=== PATIENT | female | born 1960 | race Caucasian/White ===

== ENCOUNTER 2017-11-16 15:44 | Inpatient (IN) | payer MEDICAID, SELFPAY ==
[2017-11-16] VITALS (32 sets, daily range): BP systolic 70–171; BP diastolic 56–128; PULSE 68–102; RESP 14–35; TEMP 36.1–37.5; O2SAT 10–100; BMI 18.9; BMI 18.6
--- NOTE | 2017-11-16 15:48 | ED.RN ---
upon arrival to triage pt pulse ox was 58-62% on room air with labored breathing
--- NOTE | 2017-11-16 15:53 | EKG12_ITS ---
Test Reason : SOB Blood Pressure : / mmHG Vent. Rate : 100 BPM Atrial Rate : 100 BPM P-R Int : 142 ms QRS Dur : 082 ms QT Int : 322 ms P-R-T Axes : 083 258 076 degrees QTc Int : 415 ms Normal sinus rhythm Low voltage QRS (LIMB LEADS) Possible Left atrial enlargement Poor R wave progression Septal infarct , age undetermined -cannot be excluded Abnormal ECG Confirmed by JR KHAN, SARBJIT ([id number]), book or script editor KEVIN ESTEVES ([id number]) on 11/18/2017 1:34:00 PM Referred By: Frances Yusuf Confirmed By:SARBJIT NORRIS MD
--- NOTE | 2017-11-16 15:55 | RAD_ITS ---
STUDY: X-RAY CHEST REASON FOR EXAM: Female, 57 years old. Shortness of breath TECHNIQUE: Single view of the chest was obtained COMPARISON: February 09, 2014 chest radiograph FINDINGS: Emphysematous changes are seen bilaterally. Apical lung scarring. Bilateral subsegmental atelectasis. Calcified nodule in the left lower lobe likely present. Degenerative changes in the thoracic spine. IMPRESSION: Interval progression of the apical lung densities possibly scarring however underlying mass is not excluded from this exam. COPD Electronically Signed: Tremaine Davila, at 16:25 EDT Tel , Service support , RAD/Chest 1 View (Portable)
[2017-11-16] MEDS: Albuterol 2.5 MG/3 ML VIAL.NEB. INHALATION ×3 (15:56→16:36)
[2017-11-16] MEDS: Ipratropium/Albuterol Sulfate 3 ML AMPUL.NEB INHALATION ×2 (15:56→22:56)
[2017-11-16] MEDS: MethylPREDNISolone 125 MG/2 ML Vial IV (15:58)
[2017-11-16] MEDS: 0.9% Normal Saline 1,000 ML 150 ML IV ×2 (16:00→22:25)
[2017-11-16 16:08] LABS: Absolute Lymphocyte Count 2.06 X10^3/ul (0.83-4.51); Absolute Neutrophil Count 16.4 X10^3/uL (2.0-7.7); Basophil# 0.05 X10^3/uL; Basophil% 0.2 % (0-1); Hematocrit 54.6 % (37-47); Hemoglobin 17.6 g/dl (12.0-15.0); Lymphocyte # 2.06 X10^3/ul (4.0); Lymphocyte % 10.2 % (19-41); Mean Corp Hgb Conc 32.2 g/gl (32-36); Mean Corpuscular Hgb 31.5 pg (27.0-32.0); Mean Corpuscular Volume 97.7 fL (81-99); Monocyte# 1.73 X10^3/uL; Monocyte% 8.5 % (0-10); Neutrophil # 16.35 X10^3/uL (2.7-7.7); Neutrophil % 80.7 % (47-70); Platelet Count 279 K/mm3 (150-450); RBC Distribution Width CV 13.2 % (11.6-14.6); RBC Distribution Width SD 47.1 fl (35.1-43.9); Red Blood Count 5.59 M/mm3 (4.2-5.4); White Blood Count 20.3 K/mm3 (4.4-11.0)
[2017-11-16 16:09] LABS: Differential Indicated SCAN CRITERIA MET; POSITIVE COUNT NO; POSITIVE DIFFERENTIAL YES; POSITIVE MORPHOLOGY NO
[2017-11-16 16:19] LABS: Anion Gap 9 (5-15); BUN 44 mg/dL (7-18); BUN/Creat Ratio 32.6 RATIO (10-20); Calcium,Total 9.7 mg/dL (8.5-10.1); Chloride 98 mmol/L (98-107); Creatinine, Serum 1.35 mg/dL (0.55-1.02); EST Glomerular Filtration Rate 43 mL/min (>60); Est Glom Filt Rate - Afr Amer 52 mL/min (>60); Estimated Creatinine Clearance 39.84 ml/min; Glucose 172 mg/dL (74-106); Potassium 5.1 mmol/L (3.5-5.1); Sodium Level 139 mmol/L (136-145)
[2017-11-16 16:25] LABS: Differential Comment SCANNED
[2017-11-16] MEDS: Ceftriaxone 1 GM/50 ML BAG IV (16:27)
--- NOTE | 2017-11-16 17:14 | PCM.HP.STD ---
Problem List (1) Acute respiratory failure with hypoxemia Status: Acute History of Present Illness Date of Admission: 11/16/17 Chief Complaint: Shortness of breath The patient is a 57 year old F with a past medical history of COPD, not on home oxygen, hypertension, and GERD. She was admitted by the ED on 11/16/2017 with a complaint of shortness of breath for the past 4 days. History was taken from patient's mother as patient was quite confused. According to mother, she visited patient about 4 days ago and noted that she was very short of breath. She also had a cough productive of greenish yellowish sputum, and associated chills and pleuritic chest pain. She refused to come to the hospital when asked to do so by her mother. Mother says she visited her for the rest of the week and noted that cough and shortness of breath was worsening and patient had associated wheezing. Cough became increasingly more productive and she also had a fever and chills. Patient continues to smoke throughout this. And smokes about 1 pack daily. Mother therefore convinced her to come to the ED today. She has not had any exposure to anybody with any upper respiratory tract symptoms and denies any rhinorrhea or previous upper respiratory symptoms prior to the start of the symptoms. On arrival in the ED, she was found to be saturating in the 50s and so was immediately placed on oxygen. Respiratory rate was in the high 20s and 30s, she was tachycardic with heart rate been 101. Temperature was 98.2F. Oxygen had to be increased to 15 L per nonrebreather mask at which point she is saturating at 100% but still breathing at 28%. Labs done showed white cell count of 20,000, which was elevated in the 170s. Hemoglobin was also 17.6. Chemistry was significant for creatinine of 1.35, with baseline being less than 1. Initial troponin was 0.228 but EKG showed only sinus tachycardia with no acute ST changes. Lactic acid was pending at time of review. Potassium was also 5.1. Chest x-ray showed emphysematous changes bilaterally with apical lung scarring and bilateral subsegmental atelectasis. Calcified nodule seen in the left lower lobe likely present. She is being admitted to be managed for acute hypoxic and hypercapnic respiratory failure and sepsis due to community-acquired pneumonia and COPD exacerbation. [] Past Medical History Past Medical History (Chronic Problems): Chronic Problems Tobacco dependence (Chronic) Allergies Sulfa (Sulfonamide Antibiotics) Allergy (Verified 04/03/16 13:21) Other Home Medications: Ambulatory Orders Medication Instructions Recorded Fluoxetine [Prozac] 40 mg PO DAILY 02/09/14 Lansoprazole [Prevacid] 15 mg PO DAILY 02/09/14 Albuterol Inhaler [Ventolin Hfa] 1 puff INHALATION Q4H PRN PRN #1 02/10/14 inhaler Fexofenadine HCl [Renetta Allergy] 60 mg PO DAILY 04/03/16 Guaifenesin [Mucinex] 40 mg PO DAILY 04/03/16 Meclizine HCl [Antivert] 25 mg PO BID PRN PRN 04/03/16 Fluticasone/Vilanterol [Breo 1 puff INHALATION BID 11/16/17 Ellipta 100-25 Mcg INH] Propranolol HCl 10 mg PO DAILY 11/16/17 Surgical History: cholecystectomy Lives: Alone - with her cat Smoking Status: Current every day smoker Tobacco Use: Cigarettes Alcohol: Occasional Drugs: None - *Family History Paternal History Items: COPD - brother Review of Systems Constitutional: Reports: Chills, Fever, Malaise, Weakness, Fatigue Eyes: Denies: Blurred vision HEENT: Denies: Head Aches, Sinus Congestion, Sinus Drainage Cardiovascular: Reports: Chest Pain - Pleuritic. Denies: Chest Pressure, Chest Tightness, Edema, Palpitations, Paroxysmal Noc. Dyspnea, Syncope Respiratory: Reports: Cough, Pleuritic Pain, Shortness of Breath, Shortness of breath at rest, Shortness of breath upon exertion, Sputum production, Wheezing Gastrointestinal: Denies: Abdominal Pain, Diarrhea, Nausea, Vomiting Genitourinary: Denies: Dysuria Musculoskeletal: Denies: Joint Pain, Joint Tenderness Skin: Denies: Rash, Wounds Neurological: Denies: Numbness, Tingling, Focal weakness Psychiatric: Denies: Anxiety, Depression, Homicidal Ideations, Suicidal Ideations Hematologic/ Lymphatic: Denies: Easy Bruising, Easy Bleeding VTE Information - Inpt Only VTE Present on Admission: No VTE Mechan Device Prophylaxis: None VTE Pharm Prophylaxis ordered?: Yes Patient Problems: Active and Suspected Problems Acute respiratory failure with hypoxemia (Acute) - Physical Exam General: Alert, Cooperative, No apparent distress, - - Patient was confused during review and was having some hallucinations. HEENT: Atraumatic, PERRLA, EOMI, Normocephalic Oral: Dry Mucosa Neck: Supple, No JVD, Negative Carotid Bruits Lungs: Diminished, Short of Breath, Tachypneic, Using Accessory Muscles, Wheezes, - - Breath sounds were diminished in all lung hardin. Has anterior-posterior widening. Cardiovascular: Normal S1, Normal S2, No murmurs, Tachycardic Abdomen: Bowel Sounds Present, Soft, Non Tender, Non-Distended, No Hepato-splenomegaly Extremities: No clubbing, No cyanosis, No edema, Capillary Refill Less than 3 Seconds, - - varicose veins over lower extremities Skin: No rashes, No breakdown Musculoskeletal: No Tenderness to Palpation of Joints or Extremities Lymphatic: No Cervical, Supraclavicular, or Inguinal Adenopathy Neurological: Cranial nerves II-XII grossly intact, Motor Exam 5/5 strength throughout Psych/Mental Status: Hallucinations, - - confused, hallucinating, Alert and oriented to time, place, person, mood and affect Vital Signs Temp Pulse Resp BP Pulse Ox 98.2 F 99 18 163/117 H 93 11/16/17 15:47 11/16/17 17:05 11/16/17 17:05 11/16/17 17:05 11/16/17 17:05 Oxygen Flow Rate (L/min) 15 Oxygen Delivery Method Venturi Mask Laboratory Results - last 24 hr 11/16/17 11/16/17 11/16/17 15:50 15:50 16:10 WBC 20.3 H RBC 5.59 H Hgb 17.6 H Hct 54.6 H MCV 97.7 MCH 31.5 MCHC 32.2 RDW 13.2 RDW Differential 47.1 H Plt Count 279 MPV 10.0 Immature Gran % (Auto) 0.400 Neut % (Auto) 80.7 H Lymph % (Auto) 10.2 L [place] % (Auto) 8.5 Eos % (Auto) 0.0 Baso % (Auto) 0.2 Absolute Neuts (auto) 16.4 H Absolute Lymphs (auto) 2.06 Total Counted Not Reportable Differential Comment SCANNED Specimen Type Sample Site pH Bicarbonate Actual POC Total CO2 Base Excess O2 Saturation O2 % ABG pCO2 ABG pO2 Jorge Luis Test O2 Delivery Device Blood Gas Notified Whom Blood Gas Notified Time Sodium 139 Potassium 5.1 Chloride 98 Carbon Dioxide 32.0 Anion Gap 9 BUN 44 H Creatinine 1.35 H Estim Creat Clear Calc 39.84 Est GFR (MDRD) Af Amer 52 L Est GFR (MDRD) Non-Af 43 L BUN/Creatinine Ratio 32.6 H Glucose 172 H Lactic Acid 2.2 H Calcium 9.7 Troponin I 0.228 H 11/16/17 17:06 WBC RBC Hgb Hct MCV MCH MCHC RDW RDW Differential Plt Count MPV Immature Gran % (Auto) Neut % (Auto) Lymph % (Auto) [place] % (Auto) Eos % (Auto) Baso % (Auto) Absolute Neuts (auto) Absolute Lymphs (auto) Total Counted Differential Comment Specimen Type ART Sample Site R Radial pH 7.16 L* Bicarbonate Actual 35.1 H POC Total CO2 38 Base Excess 6 H O2 Saturation 93 L O2 % 50 ABG pCO2 97.4 H* ABG pO2 90 Jorge Luis Test POS O2 Delivery Device Vent Mask Blood Gas Notified Whom ED MD Blood Gas Notified Time 1706 Sodium Potassium Chloride Carbon Dioxide Anion Gap BUN Creatinine Estim Creat Clear Calc Est GFR (MDRD) Af Amer Est GFR (MDRD) Non-Af BUN/Creatinine Ratio Glucose Lactic Acid Calcium Troponin I Assessment/Plan All Active Problems Acute respiratory failure with hypoxemia (Acute) COPD with acute exacerbation (Acute) Fall (Acute) Alcohol abuse (Acute) 57-year-old patient admitted with a complaint of 4 day history of shortness of breath and worsening cough productive of greenish yellow sputum. 1. Acute hypoxic and hypercapnic respiratory failure due to COPD exacerbation and pneumonia Saturation in the 50s on admission in the ED. Saturation came up after she was put on 15 L of oxygen at 50% FiO2 by nonrebreather mask. Was very tachycardic and tachypneic at time of review. Had diminished breath sounds in all lung hardin. White cell count elevated at 20.3. His chest x-ray did not show any focal infiltrate but showed evidence of severe emphysematous changes. ABG done was on 15 L of oxygen showed pH of 7.16 and PCO2 of 97.4, bicarb of 35 and pO2 of 90, Patient's family gives okay for intubation. Patient to be started on BiPAP and she does not tolerate, to be intubated. breathing treatments with duonebs,. will start IV solumedrol 40mg q8 will start IV ceftriaxone and IV azithromycin for community-acquired pneumonia. urine for strep and legionella antigens; respiratory panel and influenza screen; blood and sputum cultures utilization specialist consult admit to ICU 2. Sepsis due to community acquired pneumonia SIRS 3/4- tacycardia, tachypnea, leucocytosis lactic acid elevatged at 2.2 will hydrate with IVF per sepsis protocol and trend lactic acid IV ceftriaxone and IV azithromycin 2D echo to assess cardiac function 3. COPD exacerbation as documented under 1. breathing treatments, IV solumedrol, antibiotics pulmonology consult 4. Elevated troponins initial troponin-0.225; no baseline available EKG showed sinus tachycardia with no acute ST changes will cycle troponins and monitor 5. AK I likely prerenal due to decreased intake Is 1.35, baseline is less than 1 will monitor with IVF administration 6. Hypertension BP elevated on admission likely due to agitation from hypoxia BP in the 160s-170s on admission given IV lopressor 5mg once will resume BP meds 7. POlycythemia Hb is 17.6; this may be due to dehydration and hemoconcentration. will monitor with IVF administration 8. GERD: give PPI DVT prophylaxis: Lovenox CODE STATUS: FULL CODE. Patient's mother counseled about different types of CODE STATUS. Counseled on differences between DNR CCA, DNR CCA and full code. Patient is quite confused and mother is next of kin. Mother states she wanted to be full code. Time spent on CODE STATUS counseling 15 minutes. Total amount of time spent on critical care: 65 minutes Code Visit Inpatient E&M: 32031 Init Hosp L3 Procedures: 66871 Critial Care 1st Hr - Advanced care planning done 30 [id number]
[2017-11-16 17:19] LABS: Lactic Acid 2.2 mmol/L (0.4-2.0)
[2017-11-16 17:20] LABS: Allen Test POS; Base Excess 6 mmol/L (-2 to +2); Bicarbonate 35.1 mmol/L (22-26); Blood Gas Specimen Type ART; FI02 50; PO2 90 mmHG (75-100); SITE R Radial; SO2 93 % (95-99); Time Given 1706; Total Carbon Dioxide 38 mmol/L; pCO2 97.4 mmHg (35-45); pH 7.16 (7.35-7.45)
--- NOTE | 2017-11-16 17:20 | HP.PCM_ITS ---
Problem List (1) Acute respiratory failure with hypoxemia Status: Acute History of Present Illness Date of Admission: 11/16/17 Chief Complaint: Shortness of breath The patient is a 57 year old F with a past medical history of COPD, not on home oxygen, hypertension, and GERD. She was admitted by the ED on 11/16/2017 with a complaint of shortness of breath for the past 4 days. History was taken from patient's mother as patient was quite confused. According to mother, she visited patient about 4 days ago and noted that she was very short of breath. She also had a cough productive of greenish yellowish sputum, and associated chills and pleuritic chest pain. She refused to come to the hospital when asked to do so by her mother. Mother says she visited her for the rest of the week and noted that cough and shortness of breath was worsening and patient had associated wheezing. Cough became increasingly more productive and she also had a fever and chills. Patient continues to smoke throughout this. And smokes about 1 pack daily. Mother therefore convinced her to come to the ED today. She has not had any exposure to anybody with any upper respiratory tract symptoms and denies any rhinorrhea or previous upper respiratory symptoms prior to the start of the symptoms. On arrival in the ED, she was found to be saturating in the 50s and so was immediately placed on oxygen. Respiratory rate was in the high 20s and 30s, she was tachycardic with heart rate been 101. Temperature was 98.2F. Oxygen had to be increased to 15 L per nonrebreather mask at which point she is saturating at 100% but still breathing at 28%. Labs done showed white cell count of 20,000, which was elevated in the 170s. Hemoglobin was also 17.6. Chemistry was significant for creatinine of 1.35, with baseline being less than 1. Initial troponin was 0.228 but EKG showed only sinus tachycardia with no acute ST changes. Lactic acid was pending at time of review. Potassium was also 5.1. Chest x-ray showed emphysematous changes bilaterally with apical lung scarring and bilateral subsegmental atelectasis. Calcified nodule seen in the left lower lobe likely present. She is being admitted to be managed for acute hypoxic and hypercapnic respiratory failure and sepsis due to community-acquired pneumonia and COPD exacerbation. [ ] Past Medical History Past Medical History (Chronic Problems): Chronic Problems Tobacco dependence (Chronic) Allergies Sulfa (Sulfonamide Antibiotics) Allergy (Verified 04/03/16 13:21) Other Home Medications: Ambulatory Orders Medication Instructions Recorded Fluoxetine [Prozac] 40 mg PO DAILY 02/09/14 Lansoprazole [Prevacid] 15 mg PO DAILY 02/09/14 Albuterol Inhaler [Ventolin Hfa] 1 puff INHALATION Q4H PRN PRN #1 02/10/14 inhaler Fexofenadine HCl [Renetta Allergy] 60 mg PO DAILY 04/03/16 Guaifenesin [Mucinex] 40 mg PO DAILY 04/03/16 Meclizine HCl [Antivert] 25 mg PO BID PRN PRN 04/03/16 Fluticasone/Vilanterol [Breo 1 puff INHALATION BID 11/16/17 Ellipta 100-25 Mcg INH] Propranolol HCl 10 mg PO DAILY 11/16/17 Surgical History: cholecystectomy Lives: Alone - with her cat Smoking Status: Current every day smoker Tobacco Use: Cigarettes Alcohol: Occasional Drugs: None - *Family History Paternal History Items: COPD - brother Review of Systems Constitutional: Reports: Chills, Fever, Malaise, Weakness, Fatigue Eyes: Denies: Blurred vision HEENT: Denies: Head Aches, Sinus Congestion, Sinus Drainage Cardiovascular: Reports: Chest Pain - Pleuritic. Denies: Chest Pressure, Chest Tightness, Edema, Palpitations, Paroxysmal Noc. Dyspnea, Syncope Respiratory: Reports: Cough, Pleuritic Pain, Shortness of Breath, Shortness of breath at rest, Shortness of breath upon exertion, Sputum production, Wheezing Gastrointestinal: Denies: Abdominal Pain, Diarrhea, Nausea, Vomiting Genitourinary: Denies: Dysuria Musculoskeletal: Denies: Joint Pain, Joint Tenderness Skin: Denies: Rash, Wounds Neurological: Denies: Numbness, Tingling, Focal weakness Psychiatric: Denies: Anxiety, Depression, Homicidal Ideations, Suicidal Ideations Hematologic/ Lymphatic: Denies: Easy Bruising, Easy Bleeding VTE Information - Inpt Only VTE Present on Admission: No VTE Mechan Device Prophylaxis: None VTE Pharm Prophylaxis ordered?: Yes Patient Problems: Active and Suspected Problems Acute respiratory failure with hypoxemia (Acute) - Physical Exam General: Alert, Cooperative, No apparent distress, - - Patient was confused during review and was having some hallucinations. HEENT: Atraumatic, PERRLA, EOMI, Normocephalic Oral: Dry Mucosa Neck: Supple, No JVD, Negative Carotid Bruits Lungs: Diminished, Short of Breath, Tachypneic, Using Accessory Muscles, Wheezes , - - Breath sounds were diminished in all lung hardin. Has anterior-posterior widening. Cardiovascular: Normal S1, Normal S2, No murmurs, Tachycardic Abdomen: Bowel Sounds Present, Soft, Non Tender, Non-Distended, No Hepato- splenomegaly Extremities: No clubbing, No cyanosis, No edema, Capillary Refill Less than 3 Seconds, - - varicose veins over lower extremities Skin: No rashes, No breakdown Musculoskeletal: No Tenderness to Palpation of Joints or Extremities Lymphatic: No Cervical, Supraclavicular, or Inguinal Adenopathy Neurological: Cranial nerves II-XII grossly intact, Motor Exam 5/5 strength throughout Psych/Mental Status: Hallucinations, - - confused, hallucinating, Alert and oriented to time, place, person, mood and affect Vital Signs Temp Pulse Resp BP Pulse Ox 98.2 F 99 18 163/117 H 93 11/16/17 15:47 11/16/17 17:05 11/16/17 17:05 11/16/17 17:05 11/16/17 17:05 Oxygen Flow Rate (L/min) 15 Oxygen Delivery Method Venturi Mask Laboratory Results - last 24 hr 11/16/17 11/16/17 11/16/17 15:50 15:50 16:10 WBC 20.3 H RBC 5.59 H Hgb 17.6 H Hct 54.6 H MCV 97.7 MCH 31.5 MCHC 32.2 RDW 13.2 RDW Differential 47.1 H Plt Count 279 MPV 10.0 Immature Gran % (Auto) 0.400 Neut % (Auto) 80.7 H Lymph % (Auto) 10.2 L [place] % (Auto) 8.5 Eos % (Auto) 0.0 Baso % (Auto) 0.2 Absolute Neuts (auto) 16.4 H Absolute Lymphs (auto) 2.06 Total Counted Not Reportable Differential Comment SCANNED Specimen Type Sample Site pH Bicarbonate Actual POC Total CO2 Base Excess O2 Saturation O2 % ABG pCO2 ABG pO2 Jorge Luis Test O2 Delivery Device Blood Gas Notified Whom Blood Gas Notified Time Sodium 139 Potassium 5.1 Chloride 98 Carbon Dioxide 32.0 Anion Gap 9 BUN 44 H Creatinine 1.35 H Estim Creat Clear Calc 39.84 Est GFR (MDRD) Af Amer 52 L Est GFR (MDRD) Non-Af 43 L BUN/Creatinine Ratio 32.6 H Glucose 172 H Lactic Acid 2.2 H Calcium 9.7 Troponin I 0.228 H 11/16/17 17:06 WBC RBC Hgb Hct MCV MCH MCHC RDW RDW Differential Plt Count MPV Immature Gran % (Auto) Neut % (Auto) Lymph % (Auto) [place] % (Auto) Eos % (Auto) Baso % (Auto) Absolute Neuts (auto) Absolute Lymphs (auto) Total Counted Differential Comment Specimen Type ART Sample Site R Radial pH 7.16 L* Bicarbonate Actual 35.1 H POC Total CO2 38 Base Excess 6 H O2 Saturation 93 L O2 % 50 ABG pCO2 97.4 H* ABG pO2 90 Jorge Luis Test POS O2 Delivery Device Vent Mask Blood Gas Notified Whom ED MD Blood Gas Notified Time 1706 Sodium Potassium Chloride Carbon Dioxide Anion Gap BUN Creatinine Estim Creat Clear Calc Est GFR (MDRD) Af Amer Est GFR (MDRD) Non-Af BUN/Creatinine Ratio Glucose Lactic Acid Calcium Troponin I Assessment/Plan All Active Problems Acute respiratory failure with hypoxemia (Acute) COPD with acute exacerbation (Acute) Fall (Acute) Alcohol abuse (Acute) 57-year-old patient admitted with a complaint of 4 day history of shortness of breath and worsening cough productive of greenish yellow sputum. 1. Acute hypoxic and hypercapnic respiratory failure due to COPD exacerbation and pneumonia * Saturation in the 50s on admission in the ED. Saturation came up after she was put on 15 L of oxygen at 50% FiO2 by nonrebreather mask. * Was very tachycardic and tachypneic at time of review. Had diminished breath sounds in all lung hardin. * White cell count elevated at 20.3. His chest x-ray did not show any focal infiltrate but showed evidence of severe emphysematous changes. * ABG done was on 15 L of oxygen showed pH of 7.16 and PCO2 of 97.4, bicarb of 35 and pO2 of 90, * Patient's family gives okay for intubation. Patient to be started on BiPAP and she does not tolerate, to be intubated. * breathing treatments with duonebs,. will start IV solumedrol 40mg q8 * will start IV ceftriaxone and IV azithromycin for community-acquired pneumonia. * urine for strep and legionella antigens; respiratory panel and influenza screen; blood and sputum cultures * liquid yeast supervisor consult * admit to ICU * 2. Sepsis due to community acquired pneumonia * SIRS 3/4- tacycardia, tachypnea, leucocytosis * lactic acid elevatged at 2.2 * will hydrate with IVF per sepsis protocol and trend lactic acid * IV ceftriaxone and IV azithromycin * 2D echo to assess cardiac function * 3. COPD exacerbation * as documented under 1. * breathing treatments, IV solumedrol, antibiotics * pulmonology consult * 4. Elevated troponins * initial troponin-0.225; no baseline available * EKG showed sinus tachycardia with no acute ST changes * will cycle troponins and monitor * 5. AK I * likely prerenal due to decreased intake * Is 1.35, baseline is less than 1 * will monitor with IVF administration * 6. Hypertension * BP elevated on admission likely due to agitation from hypoxia * BP in the 160s-170s on admission * given IV lopressor 5mg once * will resume BP meds 7. POlycythemia * Hb is 17.6; this may be due to dehydration and hemoconcentration. * will monitor with IVF administration 8. GERD: give PPI DVT prophylaxis: Lovenox CODE STATUS: FULL CODE. Patient's mother counseled about different types of CODE STATUS. Counseled on differences between DNR CCA, DNR CCA and full code. Patient is quite confused and mother is next of kin. Mother states she wanted to be full code. Time spent on CODE STATUS counseling 15 minutes. Total amount of time spent on critical care: 65 minutes * * Code Visit Inpatient E&M: 34670 Init Hosp L3 Procedures: 65847 Critial Care 1st Hr - Advanced care planning done 1st 30 [id number]
--- NOTE | 2017-11-16 17:37 | ECHOD_ITS ---
Reason For Study: ABNL EKG Procedure This was a 2D Doppler, Color Flow transthoracic echocardiogram. The study was technically difficult. The study was technically limited. Due to COPD. Exam performed portable in ICU/CCU. Left Ventricle Normal size and thickness. The estimated ejection fraction is 65 %. No regional wall motion abnormalities noted. Right Ventricle Normal size and thickness. Normal systolic function. Atria Normal left atrium. Normal right atrium. Normal atrial septum. Mitral Valve The mitral valve is structurally normal. No prolapse or stenosis seen. Tricuspid Valve Normal tricuspid valve. Trivial tricuspid valve insufficiency. Right ventricular systolic pressure estimated to be 38 mmHg. Mild pulmonary hypertension. Aortic Valve Normal aortic valve. Trisinus/trileaflet aortic valve. Pulmonic Valve Normal pulmonic valve. Great Vessels Normal aortic root. Normal arch. Normal inferior vena cava. Inferior vena cava collapse with sniff. Pericardium/Pleural No pericardial effusion. MMode/2D Measurements & Calculations LVIDd: 3.5 cm IVSd: 0.63 cm Ao root diam: 3.7 cm LVIDs: 2.0 cm LVPWd: 0.80 cm LA dimension: 2.4 cm RVDd: 2.4 cm FS: 43.0 % LAV(MOD-sp4): 28.0 ml LA A4 area: 12.3 cm2 RA A4 area: 8.1 cm2 Doppler Measurements & Calculations MV E max gustavo: 66.6 cm/sec Ao V2 max: 120.2 cm/sec LV V1 max: 99.8 cm/sec MV A max gustavo: 81.4 cm/sec Ao max P.8 mmHg LV V1 max P.0 mmHg MV E/A: 0.82 PA V2 max: 109.9 cm/sec TR max gustavo: 284.4 cm/sec TR max P.8 mmHg Interpretation Summary The estimated ejection fraction is 65 %. Trivial tricuspid valve insufficiency. Right ventricular systolic pressure estimated to be 38 mmHg. Mild pulmonary hypertension. There is no comparison study available. Ordering Physician: Eri Hernandez Referring Physician: Otilio Power Performed By: Izabela Rodriguez, BERNARD, RVT
--- NOTE | 2017-11-16 17:50 | ED.RN ---
THIS NURSE CALLED PHARMACY AT 1711 FOR LOPRESSOR FOR PT AND PHARMACY SAID THEY WERE BUSY AND TO SEND THEM A MESSAGE, 15 MINS LATER THIS NURSE CALLED PHARMACY AGAIN AND THEY SAID THEY WOULD SEND IT. A TOTAL OF 40 MINS LATER THE LOPRESSOR WAS STILL NOT UP FOR PATIENT SO THIS NURSE TOOK PATIENT TO FLOOR
--- NOTE | 2017-11-16 18:30 | ED.RN ---
PT WAS NOT GIVEN LOPRESSOR DUE TO BLOOD PRESSURE GOING DOWN TO 101/87 AFTER THE PATIENT HAD BEEN ON BI PAP FOR 45 MINS
--- NOTE | 2017-11-16 18:41 | ED.VISSUMM ---
- ER Visit Summary Date of Service: 11/16/17 Chief Complaint: Shortness of breath [] History of Present Illness: The patient is a 57 F [presents the emergency department complaint of shortness of breath that started 2 days ago. Patient has been coughing some thick green sputum. Patient has had fever at home. Patient denies any chest pain currently. Patient did have diarrhea a few days ago. Patient does have a history of COPD but does not wear home O2. Patient has a history of hypertension and history of IBS. Surgical history includes cholecystectomy.] Physical Examination: [HEENT-PERRLA, EOMI. Cranial nerves II through XII grossly intact. TMs clear. Mucous membranes moist. No adenopathy. Cardiovascular-regular rate and rhythm without murmur or ectopy Lungs-diminished breath sounds bilaterally with tachypnea. Patient initial pulse ox was 54% on room air. There is some mild accessory muscle use noted. Patient has some faint expiratory wheezes noted. Abdomen-normoactive bowel sounds, soft, nontender, no rebound or rigidity, no peritoneal signs. Extremities-intact ?4, normal range of motion, normal pulses, atraumatic] Test Results: [EKG obtained on arrival shows sinus rhythm with a ventricular rate of 100 bpm with old septal wall infarct noted. CBC with differential showed a white count of 20.3. Hemogram and 17.6, hemoglobin 54, platelets 279. Chemistries unremarkable. BUN was 44 creatinine 1.35. Glucose was 172. Troponin was 0.228. Lactate was elevated 2.2. Initial ABG showed a pH of 7.164 with a CO2 of 97. Repeat ABG after half an hour on BiPAP showed a CO2 of 83.] Emergency Department Course and Treatment: [Patient began to hallucinate on the emergency department was started on BiPAP. Patient continues to have CO2 retention and is hallucinating therefore decision was made to intubate the patient prior to admission to ICU. Patient was intubated with a 7.[address] on ventilator. Post intubation x-ray obtained showed good placement of ET tube.] Patient was started on Rocephin and Zithromax. Treatment Plan: [Admit] Disposition: [Admit] Impression: [Respiratory failure Clinical pneumonia Elevated troponin which I suspect is secondary to hypoxia. Sepsis] This note was generated with [employer] software. It may contain incorrect words, spelling, and punctuation that were not noted in review of the chart prior to signing ED Disposition - Plan for ED Patient: Chief Complaint: Shortness of Breath
[2017-11-16 18:51] LABS: Base Excess 5 mmol/L (-2 to +2); Bicarbonate 33.2 mmol/L (22-26); Blood Gas Specimen Type ART; EPAP 6; FI02 45; IPAP 12; PO2 82 mmHG (75-100); SITE L Brachial; SO2 92 % (95-99); Time Given 1820; Total Carbon Dioxide 36 mmol/L; pCO2 82.8 mmHg (35-45); pH 7.21 (7.35-7.45)
[2017-11-16] MEDS: Etomidate 20 MG/10 ML Vial IV (18:56)
[2017-11-16] MEDS: Succinylcholine Chloride 200 MG/10 ML Vial 80 MG IV (18:57)
[2017-11-16] MEDS: Midazolam 2 MG/2 ML Syringe IV ×2 (18:57→19:05)
--- NOTE | 2017-11-16 19:08 | RAD_ITS ---
STUDY: X-RAY CHEST REASON FOR EXAM: Female, 57 years old. Endotracheal tube placement. TECHNIQUE: AP COMPARISON: November 16, 2017 at 4:01 PM. FINDINGS: The lungs are hyperinflated. There are prominent interstitial markings present. There appears to be an endotracheal tube in place terminating approximately 5 cm above the mare. There is an orogastric tube in place with its tip within the expected region of the gastroesophageal junction/proximal stomach. Normal size heart. Normal mediastinum and maye. Normal visualized pulmonary arteries. Normal visualized aortic arch and descending thoracic aorta. Normal visualized thoracic spine. Normal visualized ribs, clavicles, and shoulders. There is no demonstrated abnormality of the visualized soft tissue structures of the upper abdomen. RAD/Chest 1 View (Portable) IMPRESSION: Endotracheal tube appears to be in a grossly satisfactory position. Orogastric tube terminating within the expected region of the gastroesophageal junction/proximal stomach recommend advancing the tube 5 to 6 cm. COPD. Electronically Signed: Yaima Jain MD at 20:07 EDT Tel , Service support ,
[2017-11-16] MEDS: Midazolam 2 MG/2 ML Syringe 4 MG IV (19:25)
--- NOTE | 2017-11-16 19:26 | ED.RN ---
CALLED FOR FENTANYL DRIP
[2017-11-16 20:16] LABS: Reflex Lactate? Y
--- NOTE | 2017-11-16 20:25 | RAD_ITS ---
STUDY: X-RAY CHEST REASON FOR EXAM: Female, 57 years old. Endotracheal tube placement and OG placement. TECHNIQUE: Single frontal view of the chest. COMPARISON: November 16, 2017 at 7:08 PM. FINDINGS: The lungs are hyperinflated. There is an endotracheal tube in place terminating approximately 3.9 cm above the mare. There is an oral gastric tube in place which has been advanced since the prior examination with its tip within the expected region of the gastric fundus. Normal size heart. Normal mediastinum and maye. Normal visualized pulmonary arteries. Normal visualized aortic arch and descending thoracic aorta. Normal visualized thoracic spine. There are left posterior rib deformities consistent with healed fractures. There is no demonstrated abnormality of the visualized soft tissue structures of the upper abdomen. RAD/Chest 1 View (Portable) IMPRESSION: Endotracheal tube and orogastric tube in grossly satisfactory positions. Hyperinflated lungs suggestive of underlying COPD. Electronically Signed: Yaima Jain MD at 21:48 EDT Tel , Service support ,
[2017-11-16 20:27] LABS: Magnesium 2.7 mg/dL (1.6-2.6)
[2017-11-16] MEDS: 0.9% Normal Saline 1,000 ML 999 ML IV (20:52)
[2017-11-16] MEDS: Propofol 10MG/Ml 1,000 MG/100 ML Bottle 1.611 MG CONT INF (21:00)
[2017-11-16] MEDS: Chlorhexidine 15 ML PO (21:04)
[2017-11-16 21:06] LABS: Base Excess 6 mmol/L (-2 to +2); Bicarbonate 32.6 mmol/L (22-26); Blood Gas Specimen Type ART; FI02 100; Mode A-C; O2 Delivery Device Vent; PEEP 5; PO2 541 mmHG (75-100); RR 16; SITE R Radial; SO2 100 % (95-99); Time Given 2050; Total Carbon Dioxide 35 mmol/L; Vt 450; pCO2 70.8 mmHg (35-45); pH 7.27 (7.35-7.45)
[2017-11-16 21:21] LABS: M R Staph aureus DNA By PCR Negative (Negative); Probe Check PASS; Specimen Processing Control PASS
[2017-11-16] MEDS: 0.9% NaCl Peripheral Flush Adult/Peds IV (21:38)
[2017-11-16 22:15] LABS: Lactic Acid 3.1 mmol/L (0.4-2.0)
[2017-11-16] MEDS: Aspirin 300 MG Suppository RECTAL (22:21)
[2017-11-16 23:36] LABS: Base Excess 7 mmol/L (-2 to +2); Bicarbonate 31.5 mmol/L (22-26); Blood Gas Specimen Type ART; FI02 40; Mode A-C; O2 Delivery Device Vent; PEEP 5; PO2 138 mmHG (75-100); RR 16; SITE R Radial; SO2 99 % (95-99); Time Given 2325; Total Carbon Dioxide 33 mmol/L; Vt 450
[2017-11-17] VITALS (38 sets, daily range): BP systolic 84–158; BP diastolic 61–114; PULSE 54–85; RESP 16–18; TEMP 36.1–37.1; O2SAT 93–100
[2017-11-17 01:19] LABS: Absolute Nucleated RBC Count 0.02 10^3/uL (0-5); NRBC Flagged by Analyzer 0.1 % (0-5)
[2017-11-17] MEDS: Ipratropium/Albuterol Sulfate 3 ML AMPUL.NEB INHALATION ×6 (02:57→22:47)
[2017-11-17 04:15] LABS: Anion Gap 9 (5-15); BUN 33 mg/dL (7-18); BUN/Creat Ratio 43.6 RATIO (10-20); Calcium,Total 8.5 mg/dL (8.5-10.1); Chloride 104 mmol/L (98-107); Cholesterol 138 mg/dL (200); Creatinine, Serum 0.76 mg/dL (0.55-1.02); EST Glomerular Filtration Rate 84 mL/min (>60); Est Glom Filt Rate - Afr Amer 101 mL/min (>60); Estimated Creatinine Clearance 69.23 ml/min; Glucose 140 mg/dL (74-106); High Density Lipoprotein 29 mg/dL; Potassium 4.2 mmol/L (3.5-5.1); Sodium Level 143 mmol/L (136-145); Triglycerides 139 mg/dL; Very Low Density Lipoprotein 28 mg/dL (5-40)
[2017-11-17 04:23] LABS: Absolute Lymphocyte Count 1.65 X10^3/ul (0.83-4.51); Absolute Neutrophil Count 12.9 X10^3/uL (2.0-7.7); Basophil# 0.05 X10^3/uL; Basophil% 0.3 % (0-1); Hematocrit 46.2 % (37-47); Hemoglobin 14.9 g/dl (12.0-15.0); Lymphocyte # 1.65 X10^3/ul (4.0); Lymphocyte % 10.8 % (19-41); Mean Corp Hgb Conc 32.3 g/gl (32-36); Mean Corpuscular Hgb 30.9 pg (27.0-32.0); Mean Corpuscular Volume 95.9 fL (81-99); Monocyte# 0.64 X10^3/uL; Monocyte% 4.2 % (0-10); Neutrophil # 12.86 X10^3/uL (2.7-7.7); Neutrophil % 84.3 % (47-70); Platelet Count 213 K/mm3 (150-450); RBC Distribution Width CV 13.2 % (11.6-14.6); RBC Distribution Width SD 46.1 fl (35.1-43.9); Red Blood Count 4.82 M/mm3 (4.2-5.4); White Blood Count 15.3 K/mm3 (4.4-11.0)
[2017-11-17 04:29] LABS: CPK Total, Creatine Kinase 67 U/L (26-192); Triglycerides 141 mg/dL
[2017-11-17] MEDS: Propofol 10MG/Ml 1,000 MG/100 ML Bottle 1.611 MG CONT INF ×2 (04:37→13:37)
[2017-11-17] MEDS: 0.9% Normal Saline 1,000 ML 150 ML IV (04:38)
[2017-11-17 04:49] LABS: POSITIVE COUNT NO; POSITIVE DIFFERENTIAL NO; POSITIVE MORPHOLOGY NO
--- NOTE | 2017-11-17 06:18 | CON.PCM_ITS ---
Reason for Consult Date of Consultation: 11/17/17 Reason for Consultation: Acute respiratory failure History of Present Illness: The patient is a 57-year-old female, with a history as outlined below, who presented to the emergency department on November 16 with complaints of fever, shortness of breath and productive cough. History pertinent to this hospitalization was obtained via chart review, as the patient is currently intubated and sedated and there are no family members available at the bedside. She has a documented history of COPD of unknown severity. The patient does also have a history of obstructive sleep apnea, for which it was recommended that she be on nasal CPAP with a pressure setting of 8 cm of water. Per the patient's mother, she had been experiencing subjective fevers and chills along with a cough productive of green to yellow sputum over the 3-4 days leading up to her hospitalization. The patient does have a smoking history and continues to smoke approximately 1 pack of cigarettes daily. On presentation to the emergency department, the patient was noted to be afebrile, but was tachypneic and profoundly hypoxic on room air. Laboratory evaluation revealed an elevated white blood cell count to 20,000. Chemistry profile was notable for acute kidney injury with a creatinine of 1.35. Serum lactate was mildly elevated to 2.2. Initial troponin was elevated to 0.228. MRSA screen was negative. The patient was placed initially on BiPAP 12/6 cm of water with a subsequent ABG that revealed a pH of 7.2 with a corresponding PCO2 of 83 and PO2 of 82. Initial plain film chest x-ray revealed hyperinflated lung hardin and possible apical scarring. Due to the history of productive cough, the patient was placed on antibiotics. Attempts to utilize noninvasive positive pressure ventilation in the emergency department failed and the patient was subsequently intubated. She was then transferred to the medical intensive care unit for ongoing management. Past Medical History Past Medical History (Chronic Problems): Chronic Problems Tobacco dependence (Chronic) Allergies Sulfa (Sulfonamide Antibiotics) Allergy (Verified 04/03/16 13:21) Other Home Medications: Ambulatory Orders Medication Instructions Recorded Fluoxetine [Prozac] 40 mg PO DAILY 02/09/14 Lansoprazole [Prevacid] 15 mg PO DAILY 02/09/14 Albuterol Inhaler [Ventolin Hfa] 1 puff INHALATION Q4H PRN PRN #1 02/10/14 inhaler Fexofenadine HCl [Renetta Allergy] 60 mg PO DAILY 04/03/16 Guaifenesin [Mucinex] 40 mg PO DAILY 04/03/16 Meclizine HCl [Antivert] 25 mg PO BID PRN PRN 04/03/16 Fluticasone/Vilanterol [Breo 1 puff INHALATION BID 11/16/17 Ellipta 100-25 Mcg INH] Propranolol HCl 10 mg PO DAILY 11/16/17 Surgical History: cholecystectomy Lives: Alone - with her cat Smoking Status: Current every day smoker Tobacco Use: Cigarettes Alcohol: Occasional Drugs: None - *Family History Paternal History Items: COPD - brother Review of Systems Unable to obtain accurate/complete ROS d/t: Due to current intubation and mechanical ventilation status. Patient Problems: Active and Suspected Problems Acute respiratory failure with hypoxemia (Acute) Objective: The patient's most recent lab work, culture data and imaging studies have all been personally reviewed. Blood cultures are currently pending. Rapid influenza screen was negative. Respiratory viral panel is pending. Sputum culture is also pending. - Physical Exam General: - - Intubated, sedated and mechanically ventilated. Currently tolerating assist control mode mechanical ventilation without issue. No ventilator dyssynchrony noted. HEENT: Atraumatic, PERRLA, Normocephalic Oral: No Gingival or Mucosal Lesions/ Ulcerations, - - Endotracheal and OG tubes in place. Neck: Supple, No Nodes, Trachea Midline Lungs: No rhonchi, No wheeze, No rales, Diminished Cardiovascular: Regular rate, Regular Rhythm, Normal S1, Normal S2, No murmurs Abdomen: Bowel Sounds Present, Soft, Non Tender, Non-Distended Extremities: No clubbing, No cyanosis, No edema, - - Lower extremity varicosities noted Skin: No breakdown Musculoskeletal: No Tenderness to Palpation of Joints or Extremities Lymphatic: No Cervical, Supraclavicular, or Inguinal Adenopathy Neurological: - - No focal neurological deficits. Attempts to move extremities spontaneously. Will open eyes and follow simple commands. Vital Signs Temp Pulse Resp BP Pulse Ox 98.8 F 75 16 116/92 H 94 11/17/17 06:00 11/17/17 06:00 11/17/17 06:00 11/17/17 06:00 11/17/17 06:00 Oxygen Flow Rate (L/min) 15 Oxygen Delivery Method Mechanical Ventilator Weight: 123 lb 0.287 oz Body Mass Index (BMI) 18.6 Intake and Output for Last 24 Hours 11/15/17 11/16/17 11/17/17 23:59 23:59 23:59 Intake Total 1657.9 / 1657.9 Output Total 400 / 400 Balance 1257.9 / 1257.9 Microbiology Past 72 Hours 11/16/17 20:09 Influenza Types A,B Direct FA (ANT) - Final Mucosa - Nasopharyngeal Laboratory Tests Past 24 Hrs 11/16/17 11/16/17 11/16/17 17:06 18:27 19:20 WBC RBC Hgb Hct MCV MCH MCHC RDW RDW Differential Plt Count MPV Immature Gran % (Auto) Neut % (Auto) Lymph % (Auto) [place] % (Auto) Eos % (Auto) Baso % (Auto) Absolute Neuts (auto) Absolute Lymphs (auto) Total Counted Specimen Type ART ART Sample Site R Radial L Brachial pH 7.16 L* 7.21 L Bicarbonate Actual 35.1 H 33.2 H POC Total CO2 38 36 Base Excess 6 H 5 H O2 Saturation 93 L 92 L O2 % 50 45 ABG pCO2 97.4 H* 82.8 H* ABG pO2 90 82 Jorge Luis Test POS NA Respiration Rate O2 Delivery Device Vent Mask Bi / C PAP Minute Volume Vent Mode Tidal Volume POC PEEP EPAP 6 IPAP 12 Blood Gas Notified Whom ED MD ED MD Blood Gas Notified Time 1701 1820 Sodium Potassium Chloride Carbon Dioxide Anion Gap BUN Creatinine Estim Creat Clear Calc Est GFR (MDRD) Af Amer Est GFR (MDRD) Non-Af BUN/Creatinine Ratio Glucose Lactic Acid Calcium Magnesium Total Creatine Kinase Troponin I 0.171 H Triglycerides Cholesterol LDL Cholesterol VLDL Cholesterol HDL Cholesterol MRSA (PCR) 11/16/17 11/16/17 11/16/17 19:20 20:00 20:55 WBC RBC Hgb Hct MCV MCH MCHC RDW RDW Differential Plt Count MPV Immature Gran % (Auto) Neut % (Auto) Lymph % (Auto) [place] % (Auto) Eos % (Auto) Baso % (Auto) Absolute Neuts (auto) Absolute Lymphs (auto) Total Counted Specimen Type ART Sample Site R Radial pH 7.27 L Bicarbonate Actual 32.6 H POC Total CO2 35 Base Excess 6 H O2 Saturation 100 H O2 % 100 ABG pCO2 70.8 H* ABG pO2 541 H* Jorge Luis Test Respiration Rate 16 O2 Delivery Device Vent Minute Volume 8.00 Vent Mode A-C Tidal Volume 450 POC PEEP 5 EPAP IPAP Blood Gas Notified Whom [facility] Blood Gas Notified Time 2049 Sodium Potassium Chloride Carbon Dioxide Anion Gap BUN Creatinine Estim Creat Clear Calc Est GFR (MDRD) Af Amer Est GFR (MDRD) Non-Af BUN/Creatinine Ratio Glucose Lactic Acid Calcium Magnesium 2.7 H Total Creatine Kinase Troponin I Triglycerides Cholesterol LDL Cholesterol VLDL Cholesterol HDL Cholesterol MRSA (PCR) Negative 11/16/17 11/16/17 11/17/17 21:40 23:32 03:45 WBC 15.3 H RBC 4.82 Hgb 14.9 Hct 46.2 MCV 95.9 MCH 30.9 MCHC 32.3 RDW 13.2 RDW Differential 46.1 H Plt Count 213 MPV 10.0 Immature Gran % (Auto) 0.400 Neut % (Auto) 84.3 H Lymph % (Auto) 10.8 L [place] % (Auto) 4.2 Eos % (Auto) 0.0 Baso % (Auto) 0.3 Absolute Neuts (auto) 12.9 H Absolute Lymphs (auto) 1.65 Total Counted Not Reportable Specimen Type ART Sample Site R Radial pH 7.40 Bicarbonate Actual 31.5 H POC Total CO2 33 Base Excess 7 H O2 Saturation 99 O2 % 40 ABG pCO2 51.0 H ABG pO2 138 H Jorge Luis Test Respiration Rate 16 O2 Delivery Device Vent Minute Volume 8.00 Vent Mode A-C Tidal Volume 450 POC PEEP 5 EPAP IPAP Blood Gas Notified Whom [facility] Blood Gas Notified Time 2324 Sodium Potassium Chloride Carbon Dioxide Anion Gap BUN Creatinine Estim Creat Clear Calc Est GFR (MDRD) Af Amer Est GFR (MDRD) Non-Af BUN/Creatinine Ratio Glucose Lactic Acid 3.1 H Calcium Magnesium Total Creatine Kinase Troponin I Triglycerides Cholesterol LDL Cholesterol VLDL Cholesterol HDL Cholesterol MRSA (PCR) 11/17/17 11/17/17 03:45 03:45 WBC RBC Hgb Hct MCV MCH MCHC RDW RDW Differential Plt Count MPV Immature Gran % (Auto) Neut % (Auto) Lymph % (Auto) [place] % (Auto) Eos % (Auto) Baso % (Auto) Absolute Neuts (auto) Absolute Lymphs (auto) Total Counted Specimen Type Sample Site pH Bicarbonate Actual POC Total CO2 Base Excess O2 Saturation O2 % ABG pCO2 ABG pO2 Jorge Luis Test Respiration Rate O2 Delivery Device Minute Volume Vent Mode Tidal Volume POC PEEP EPAP IPAP Blood Gas Notified Whom Blood Gas Notified Time Sodium 143 Potassium 4.2 Chloride 104 Carbon Dioxide 30.0 Anion Gap 9 BUN 33 H Creatinine 0.76 Estim Creat Clear Calc 69.23 Est GFR (MDRD) Af Amer 101 Est GFR (MDRD) Non-Af 84 BUN/Creatinine Ratio 43.6 H Glucose 140 H Lactic Acid Calcium 8.5 Magnesium Total Creatine Kinase 67 Troponin I Triglycerides 139 141 Cholesterol 138 LDL Cholesterol 81 VLDL Cholesterol 28 HDL Cholesterol 29 L MRSA (PCR) Clinical Impression(s) from Imaging Studies Chest X-Ray 11/16/17 15:55 Chest X-Ray 11/16/17 19:08 IMPRESSION: Endotracheal tube appears to be in a grossly satisfactory position. Orogastric tube terminating within the expected region of the gastroesophageal junction/proximal stomach recommend advancing the tube 5 to 6 cm. COPD. Electronically Signed: Yaima Jain MD at 20:07 EDT Tel , Service support , Chest X-Ray 11/16/17 20:25 IMPRESSION: Endotracheal tube and orogastric tube in grossly satisfactory positions. Hyperinflated lungs suggestive of underlying COPD. Electronically Signed: Yaima Jain MD at 21:48 EDT Tel , Service support , Assessment/Plan Active and Suspected Problems Acute respiratory failure with hypoxemia (Acute) RECOMMENDATIONS: 1. Discontinue supplemental IV fluids. 2. Change aerosol regimen to the following: Scheduled DuoNeb's every 4 hours along with as needed albuterol. 3. Discontinue budesonide and start methylprednisone 40 mg every 8 hours. 4. Continue antibiotics, pending infectious workup. 5. Obtain CTA chest 6. Continue current sedation regimen. 7. Wean FiO2 to maintain oxygen saturations at or above 90%. 8. Okay from my perspective to start tube feeds today. 9. Continue Lovenox and Protonix for appropriate prophylaxis IMPRESSIONS: 1. Acute hypoxemic and hypercarbic respiratory failure presumed secondary to COPD with exacerbation. Although I do not see a focal infiltrate on plain film chest imaging, the patient may have been experiencing tracheobronchitis in her home environment. Agree with continuing antibiotics, pending infectious workup. Given how profoundly hypoxic and tachypneic the patient was noted to be upon presentation to the emergency department, I would recommend obtaining a CTA chest to rule out for the presence of pulmonary emboli. Continue to wean FiO2 to maintain an oxygen saturation at or above 90%. Continue scheduled bronchodilators along with IV steroids. Continue current sedation regimen and plan to start tube feeds today. Plan for spontaneous breathing trial in the morning. 2. Sepsis secondary to suspected tracheobronchitis The patient did not have a definitive infiltrate identified on plain film chest imaging. Although, she does have report of a cough that was productive of sputum. She may have a component of underlying tracheobronchitis. Regardless, we will plan to obtain a dedicated chest CT for further evaluation. She will remain on appropriate antibiotics, pending infectious workup. Supplemental IV fluids can be discontinued, as there are plans for tube feeds to be started. 3. Acute kidney injury Likely prerenal in etiology, as the patient's creatinine responded to supplemental IV fluid hydration. Urine output is currently appropriate. No indication for renal replacement therapy. 4. Troponin elevation Likely secondary to demand ischemia in the setting of #1 and #2. Surface echocardiogram is currently pending. 5. Hypertension/anxiety/GERD Complicates care, management, recovery and prognosis. TIME: 50 minutes of critical care time, independent of procedures, was spent adressing the patient's acute hypoxemic and hypercarbic respiratory failure, COPD with exacerbation, sepsis, acute kidney injury, troponin elevation, review of all data and collaboration with the care team. ([id number]) Code Visit 9xxxx: [id number] Critical care first hour
--- NOTE | 2017-11-17 06:43 | CT_ITS ---
STUDY: CTA CHEST REASON FOR EXAM: Female, 57 years old. Respiratory failure and hypoxia RADIATION DOSAGE (If Supplied By Facility): CTDIvol = ( 3.81 ) mGy, DLP = ( 177.07 ) mGycm TECHNIQUE: The examination was performed with the intravenous administration of 100mL ml of Isovue 370 contrast material. Post-processing of the angiographic images was performed, with multiplanar reformation and 3D reconstruction. Individualized dose optimization techniques were used for this CT. COMPARISON: November 16, 2017 chest radiograph FINDINGS: Pulmonary artery and its major branches demonstrate no evidence for filling defects. Endotracheal tube is seen with its tip in the trachea. Bilateral emphysematous changes are seen. There is apical lung scarring noted however right upper lobe nodule is not excluded. Short-term follow-up imaging in 3 months is suggested. Flattening of the hemidiaphragm again seen. No pericardial effusion. No evidence for mediastinal adenopathy. Low-attenuation foci within the liver possibly a hepatic cyst however not well characterized on this exam. Diffuse osteopenia. Degenerative changes in the thoracic spine. T7 vertebral body compression fracture of indeterminate age. Mild anterior wedging of the lower thoracic and upper lumbar vertebrae. Schmorl's nodes. Thoracic aorta appears patent. The nasogastric tube is seen traversing into the stomach. No lung consolidation or pneumothorax. Small pleural-based nodules in the left lung also seen along the major fissure IMPRESSION: No evidence for pulmonary embolus. No evidence for aortic dissection. Subsegmental atelectasis Bilateral emphysema. Apical lung scarring small nodule in the right upper lobe is not excluded. Please consider follow-up imaging in 3-6 months. Small nodule in the left lower lobe also seen measuring approximately 8mm. Ill-defined nodule in the left lingula also seen with subtle cavitation measuring approximately 6 mm T7 vertebral body compression fracture of indeterminate age. Electronically Signed: Tremaine Davila, at 12:40 EDT Tel , Service support , CT/CTA Chest W/WO Contrast
[2017-11-17 07:53] LABS: Allen Test POS; Blood Gas Specimen Type VEN; FI02 45; SITE R RADIAL
[2017-11-17 07:54] LABS: EPAP 6; IPAP 12; O2 Delivery Device Bi Pap; Time Given 1805; pH 7.22 (7.35-7.45)
[2017-11-17 07:55] LABS: Base Excess 5 mmol/L (-2 to +2); Bicarbonate 32.8 mmol/L (22-26); PO2 56 mmHG (75-100); SO2 80 % (95-99); Total Carbon Dioxide 35 mmol/L; pCO2 80.6 mmHg (35-45)
--- NOTE | 2017-11-17 09:04 | PCM.PN.HOSP ---
Patient Problems: Active and Suspected Problems Acute respiratory failure with hypoxemia (Acute) Subjective: Patient seen and examined. She was intubated after failing BiPAP therapy in the ED yesterday. There were no active events overnight per nurse. Patient open eyes when called and is alert. Unable to do review of systems as patient is intubated. Vitals/I&O's: Vital Signs Temp Pulse Resp BP Pulse Ox 98.8 F 74 16 124/91 H 96 11/17/17 06:00 11/17/17 07:05 11/17/17 07:00 11/17/17 07:00 11/17/17 07:00 Oxygen Flow Rate (L/min) 15 Oxygen Delivery Method Mechanical Ventilator Weight: 123 lb 0.287 oz Body Mass Index (BMI) 18.6 Intake and Output for Last 24 Hours 11/15/17 11/16/17 11/17/17 23:59 23:59 23:59 Intake Total 1657.9 / 1657.9 Output Total 400 / 400 Balance 1257.9 / 1257.9 General: Alert, - - intubated. RASS score 0 HEENT: Atraumatic, PERRLA, EOMI, Normocephalic Oral: Moist Mucosa Neck: Supple, No JVD, Negative Carotid Bruits Lungs: - - breath sounds mildly diminished in all lung hardin, no wheezing or crackles auscultated Cardiovascular: Regular rate, Regular Rhythm, Normal S1, Normal S2, No murmurs Abdomen: Bowel Sounds Present, Soft, Non Tender, Non-Distended, No Hepato-splenomegaly Extremities: No clubbing, No cyanosis, No edema, Capillary Refill Less than 3 Seconds Skin: No rashes, No breakdown Musculoskeletal: No Tenderness to Palpation of Joints or Extremities Lymphatic: No Cervical, Supraclavicular, or Inguinal Adenopathy Neurological: Cranial nerves II-XII grossly intact, - - intubated, sedated, RASS score is 1. Psych/Mental Status: Appropriate Microbiology Past 72 Hours 11/16/17 20:09 Mucosa - Nasopharyngeal Influenza Types A,B Direct FA (ANT) - Final Laboratory Results 11/16/17 17:06: Specimen Type ART, Sample Site R Radial, pH 7.16 L*, Bicarbonate Actual 35.1 H, POC Total CO2 38, Base Excess 6 H, O2 Saturation 93 L, O2 % 50, ABG pCO2 97.4 H*, ABG pO2 90, Jorge Luis Test POS, O2 Delivery Device Vent Mask, Blood Gas Notified Whom ED , Blood Gas Notified Time 1706 11/16/17 18:05: Specimen Type BYRON, Sample Site R RADIAL, pH 7.22 L, Bicarbonate Actual 32.8 H, POC Total CO2 35, Base Excess 5 H, O2 Saturation 80 L, O2 % 45, ABG pCO2 80.6 H*, ABG pO2 56 L, Jorge Luis Test POS, O2 Delivery Device Bi Pap, EPAP 6, IPAP 12, Blood Gas Notified Whom ED MD, Blood Gas Notified Time 18011/16/17 18:27: Specimen Type ART, Sample Site L Brachial, pH 7.21 L, Bicarbonate Actual 33.2 H, POC Total CO2 36, Base Excess 5 H, O2 Saturation 92 L, O2 % 45, ABG pCO2 82.8 H*, ABG pO2 82, Jorge Luis Test NA, O2 Delivery Device Bi / C PAP, EPAP 6, IPAP 12, Blood Gas Notified Whom ED , Blood Gas Notified Time 18211/16/17 19:20: Troponin I 0.171 H 11/16/17 19:20: Magnesium 2.7 H 11/16/17 20:00: MRSA (PCR) Negative 11/16/17 20:55: Specimen Type ART, Sample Site R Radial, pH 7.27 L, Bicarbonate Actual 32.6 H, POC Total CO2 35, Base Excess 6 H, O2 Saturation 100 H, O2 % 100, ABG pCO2 70.8 H*, ABG pO2 541 H*, Respiration Rate 16, O2 Delivery Device Vent, Minute Volume 8.00, Vent Mode A-C, Tidal Volume 450, POC PEEP 5, Blood Gas Notified Whom HOSP , Blood Gas Notified Time 204911/16/17 21:40: Lactic Acid 3.1 H 11/16/17 23:32: Specimen Type ART, Sample Site R Radial, pH 7.40, Bicarbonate Actual 31.5 H, POC Total CO2 33, Base Excess 7 H, O2 Saturation 99, O2 % 40, ABG pCO2 51.0 H, ABG pO2 138 H, Respiration Rate 16, O2 Delivery Device Vent, Minute Volume 8.00, Vent Mode A-C, Tidal Volume 450, POC PEEP 5, Blood Gas Notified Whom HOSP , Blood Gas Notified Time 2325 11/17/17 03:45: WBC 15.3 H, RBC 4.82, Hgb 14.9, Hct 46.2, MCV 95.9, MCH 30.9, MCHC 32.3, RDW 13.2, RDW Differential 46.1 H, Plt Count 213, MPV 10.0, Immature Gran % (Auto) 0.400, Neut % (Auto) 84.3 H, Lymph % (Auto) 10.8 L, [place] % (Auto) 4.2, Eos % (Auto) 0.0, Baso % (Auto) 0.3, Absolute Neuts (auto) 12.9 H, Absolute Lymphs (auto) 1.65, Total Counted Not Reportable 11/17/17 03:45: Sodium 143, Potassium 4.2, Chloride 104, Carbon Dioxide 30.0, Anion Gap 9, BUN 33 H, Creatinine 0.76, Estim Creat Clear Calc 69.23, Est GFR (MDRD) Af Amer 101, Est GFR (MDRD) Non-Af 84, BUN/Creatinine Ratio 43.6 H, Glucose 140 H, Calcium 8.5, Triglycerides 139, Cholesterol 138, LDL Cholesterol 81, VLDL Cholesterol 28, HDL Cholesterol 29 L 11/17/17 03:45: Total Creatine Kinase 67, Triglycerides 141 11/17/17 : Troponin I 0.065 H Diagnostic Data Chest X-Ray 11/16/17 20:25 IMPRESSION: Endotracheal tube and orogastric tube in grossly satisfactory positions. Hyperinflated lungs suggestive of underlying COPD. Electronically Signed: Yaima Jain MD at 21:48 EDT Tel , Service support , Current Medications Albuterol Sulfate (Ventolin Aerosols) 2.5 mg INHALATION Q2H PRN PRN PRN Reason: SHORTNESS OF BREATH Albuterol/Ipratropium (Duoneb) 3 ml INHALATION Q4H.RT [facility] Last Admin: 11/17/17 06:28 Dose: 3 ml Aspirin (Aspirin) 300 mg RECTAL DAILY [facility] Last Admin: 11/16/17 22:21 Dose: 300 mg Chlorhexidine Gluconate () 15 ml PO BID [facility] Last Admin: 11/16/17 21:04 Dose: 15 ml Enoxaparin Sodium (Lovenox) 40 mg SC DAILY@1000 KYRA Fluoxetine HCl (Prozac) 40 mg PO DAILY [facility] Azithromycin 500 mg/ Dextrose 255 mls @ 250 mls/hr IV Q24 [facility] Sodium Chloride () 1,000 mls @ 150 mls/hr IV .Q6H40M [facility] Last Admin: 11/17/17 04:38 Dose: 150 mls/hr Pantoprazole Sodium 40 mg/ (Sodium Chloride) 110 mls @ 330 mls/hr IV Q24 [facility] Fentanyl () 100 mls @ 2.5 mls/hr IV .Q40H [facility] Last Admin: 11/16/17 19:47 Dose: 2.5 mls/hr Sodium Chloride () 250 mls @ 15 mls/hr IV .[id number] PRN PRN Reason: SALINE FLUSH Propofol (Diprivan) 1,000 mg in 100 mls @ 1.611 mls/hr CONT INF .Q12H [facility]; 5 MCG/KG/MIN PRN Reason: Protocol Last Admin: 11/17/17 04:37 Dose: 1.611 mls/hr Ceftriaxone Sodium (Rocephin) 1 gm in 50 mls @ 100 mls/hr IV Q12 [facility] Loratadine (Claritin) 5 mg PO DAILY [facility] Magnesium Hydroxide (Milk Of Magnesia) 30 ml PO DAILY PRN PRN PRN Reason: Constipation Meclizine HCl (Antivert) 25 mg PO BID PRN PRN PRN Reason: DIZZINESS Methylprednisolone (Solu-Medrol) 40 mg IV Q8 [facility] Last Admin: 11/17/17 06:50 Dose: 40 mg Metoprolol Tartrate (Lopressor (Beta Gela)) 5 mg IV Q5M PRN PRN Reason: BLOOD PRESSURE Propranolol HCl (Inderal) 10 mg PO DAILY [facility] Sodium Chloride () 5 - 30 ml IV UD PRN PRN Reason: SALINE FLUSH Last Admin: 11/16/17 21:38 Dose: 10 ml Medical Necessity - Tobacco Use Smoking Status: Current every day smoker Tobacco Use: Cigarettes Assessment/Plan All Active Problems Acute respiratory failure with hypoxemia (Acute) COPD with acute exacerbation (Acute) Fall (Acute) Alcohol abuse (Acute) 57-year-old patient admitted with a complaint of 4 day history of shortness of breath and worsening cough productive of greenish yellow sputum. 1. Acute hypoxic and hypercapnic respiratory failure due to COPD exacerbation and pneumonia intubated; today is day 2. Vent settings: AC/VC; TV 450mls, FiO2-30%, ABGs done in the ED showed severe respiratory acidosis with CO2 97.4 Chest x-ray showed no focal infiltrate and showed evidence of severe emphysematous changes. Survey Field Technician on board. To remain intubated until chest CT done to rule out possible PE. Cultures pending respiratory cultures and Gram stain pending influenza screen was negative. White cell count trended up to 15. Continue IV ceftriaxone and azithromycin. On IV supplement of 40 mg weekly Breathing treatment with DuoNeb's 2. Sepsis due to community acquired pneumonia had low grade fever of ~ 99.5F overnight wbc trended down to 15. lactic acid trended up to 3.1; will check today on IV ceftriaxone and azithromycin 2D echo pending to get chest CT today; CXR didnt really show any infiltrate though mother said she had been complaining of fever and cough productive of thick yellowish greenish sputum. 3. COPD exacerbation as documented under 1. intubated and sedated with propofol o/a of severe respiratory acidosis breathing treatments, IV solumedrol, antibiotics pulmonology on board 4. Elevated troponins initial troponin-0.225; trended down to 0.171 and 0.065; may have been due to LEOBARDO as well EKG showed sinus tachycardia with no acute ST changes will await echo and monitor 5. AK I likely prerenal due to decreased intake resolving. Cr down to 0.76, from 1.35 on admission continue IVF administration 6. Hypertension BP elevated on admission likely due to agitation from hypoxia control has improved BP now 120s systolic will monitor; continue BP meds- 7. POlycythemia Resolving. Was likely due to hemoconcentration. Hemoglobin was 17.6 on admission is now down to 14.9. Will continue to monitor. 8. GERD: give PPI DVT prophylaxis: Lovenox CODE STATUS: FULL CODE. This note was generated with Nomiation software. It may contain incorrect words, spelling, and punctuation that were not noted in checking the note before signing. Code Visit Inpatient E&M: 68695 Subs Hosp L3
--- NOTE | 2017-11-17 09:15 | PN_ITS ---
Patient Problems: Active and Suspected Problems Acute respiratory failure with hypoxemia (Acute) Subjective: Patient seen and examined. She was intubated after failing BiPAP therapy in the ED yesterday. There were no active events overnight per nurse. Patient open eyes when called and is alert. Unable to do review of systems as patient is intubated. Vitals/I&O's: Vital Signs Temp Pulse Resp BP Pulse Ox 98.8 F 74 16 124/91 H 96 11/17/17 06:00 11/17/17 07:05 11/17/17 07:00 11/17/17 07:00 11/17/17 07:00 Oxygen Flow Rate (L/min) 15 Oxygen Delivery Method Mechanical Ventilator Weight: 123 lb 0.287 oz Body Mass Index (BMI) 18.6 Intake and Output for Last 24 Hours 11/15/17 11/16/17 11/17/17 23:59 23:59 23:59 Intake Total 1657.9 / 1657.9 Output Total 400 / 400 Balance 1257.9 / 1257.9 General: Alert, - - intubated. RASS score 0 HEENT: Atraumatic, PERRLA, EOMI, Normocephalic Oral: Moist Mucosa Neck: Supple, No JVD, Negative Carotid Bruits Lungs: - - breath sounds mildly diminished in all lung hardin, no wheezing or crackles auscultated Cardiovascular: Regular rate, Regular Rhythm, Normal S1, Normal S2, No murmurs Abdomen: Bowel Sounds Present, Soft, Non Tender, Non-Distended, No Hepato- splenomegaly Extremities: No clubbing, No cyanosis, No edema, Capillary Refill Less than 3 Seconds Skin: No rashes, No breakdown Musculoskeletal: No Tenderness to Palpation of Joints or Extremities Lymphatic: No Cervical, Supraclavicular, or Inguinal Adenopathy Neurological: Cranial nerves II-XII grossly intact, - - intubated, sedated, RASS score is 1. Psych/Mental Status: Appropriate Microbiology Past 72 Hours 11/16/17 20:09 Mucosa - Nasopharyngeal Influenza Types A,B Direct FA (ANT) - Final Laboratory Results 11/16/17 17:06: Specimen Type ART, Sample Site R Radial, pH 7.16 L*, Bicarbonate Actual 35.1 H, POC Total CO2 38, Base Excess 6 H, O2 Saturation 93 L , O2 % 50, ABG pCO2 97.4 H*, ABG pO2 90, Jorge Luis Test POS, O2 Delivery Device Vent Mask, Blood Gas Notified Whom ED , Blood Gas Notified Time 1706 11/16/17 18:05: Specimen Type BYRON, Sample Site R RADIAL, pH 7.22 L, Bicarbonate Actual 32.8 H, POC Total CO2 35, Base Excess 5 H, O2 Saturation 80 L, O2 % 45, ABG pCO2 80.6 H*, ABG pO2 56 L, Jorge Luis Test POS, O2 Delivery Device Bi Pap, EPAP 6, IPAP 12, Blood Gas Notified Whom ED MD, Blood Gas Notified Time 18011/16/17 18:27: Specimen Type ART, Sample Site L Brachial, pH 7.21 L, Bicarbonate Actual 33.2 H, POC Total CO2 36, Base Excess 5 H, O2 Saturation 92 L , O2 % 45, ABG pCO2 82.8 H*, ABG pO2 82, Jorge Luis Test NA, O2 Delivery Device Bi / C PAP, EPAP 6, IPAP 12, Blood Gas Notified Whom ED , Blood Gas Notified Time 18211/16/17 19:20: Troponin I 0.171 H 11/16/17 19:20: Magnesium 2.7 H 11/16/17 20:00: MRSA (PCR) Negative 11/16/17 20:55: Specimen Type ART, Sample Site R Radial, pH 7.27 L, Bicarbonate Actual 32.6 H, POC Total CO2 35, Base Excess 6 H, O2 Saturation 100 H, O2 % 100 , ABG pCO2 70.8 H*, ABG pO2 541 H*, Respiration Rate 16, O2 Delivery Device Vent , Minute Volume 8.00, Vent Mode A-C, Tidal Volume 450, POC PEEP 5, Blood Gas Notified Whom HOSP , Blood Gas Notified Time 204911/16/17 21:40: Lactic Acid 3.1 H 11/16/17 23:32: Specimen Type ART, Sample Site R Radial, pH 7.40, Bicarbonate Actual 31.5 H, POC Total CO2 33, Base Excess 7 H, O2 Saturation 99, O2 % 40, ABG pCO2 51.0 H, ABG pO2 138 H, Respiration Rate 16, O2 Delivery Device Vent, Minute Volume 8.00, Vent Mode A-C, Tidal Volume 450, POC PEEP 5, Blood Gas Notified Whom HOSP , Blood Gas Notified Time 2325 11/17/17 03:45: WBC 15.3 H, RBC 4.82, Hgb 14.9, Hct 46.2, MCV 95.9, MCH 30.9, MCHC 32.3, RDW 13.2, RDW Differential 46.1 H, Plt Count 213, MPV 10.0, Immature Gran % (Auto) 0.400, Neut % (Auto) 84.3 H, Lymph % (Auto) 10.8 L, [place] % (Auto) 4.2, Eos % (Auto) 0.0, Baso % (Auto) 0.3, Absolute Neuts (auto) 12.9 H, Absolute Lymphs (auto) 1.65, Total Counted Not Reportable 11/17/17 03:45: Sodium 143, Potassium 4.2, Chloride 104, Carbon Dioxide 30.0, Anion Gap 9, BUN 33 H, Creatinine 0.76, Estim Creat Clear Calc 69.23, Est GFR ( MDRD) Af Amer 101, Est GFR (MDRD) Non-Af 84, BUN/Creatinine Ratio 43.6 H, Glucose 140 H, Calcium 8.5, Triglycerides 139, Cholesterol 138, LDL Cholesterol 81, VLDL Cholesterol 28, HDL Cholesterol 29 L 11/17/17 03:45: Total Creatine Kinase 67, Triglycerides 141 11/17/17 : Troponin I 0.065 H Diagnostic Data Chest X-Ray 11/16/17 20:25 IMPRESSION: Endotracheal tube and orogastric tube in grossly satisfactory positions. Hyperinflated lungs suggestive of underlying COPD. Electronically Signed: Yaima Jain MD at 21:48 EDT Tel , Service support , Current Medications Albuterol Sulfate (Ventolin Aerosols) 2.5 mg INHALATION Q2H PRN PRN PRN Reason: SHORTNESS OF BREATH Albuterol/Ipratropium (Duoneb) 3 ml INHALATION Q4H.RT [facility] Last Admin: 11/17/17 06:28 Dose: 3 ml Aspirin (Aspirin) 300 mg RECTAL DAILY [facility] Last Admin: 11/16/17 22:21 Dose: 300 mg Chlorhexidine Gluconate () 15 ml PO BID [facility] Last Admin: 11/16/17 21:04 Dose: 15 ml Enoxaparin Sodium (Lovenox) 40 mg SC DAILY@1000 [facility]RA Fluoxetine HCl (Prozac) 40 mg PO DAILY [facility] Azithromycin 500 mg/ Dextrose 255 mls @ 250 mls/hr IV Q24 [facility] Sodium Chloride () 1,000 mls @ 150 mls/hr IV .Q6H40M [facility] Last Admin: 11/17/17 04:38 Dose: 150 mls/hr Pantoprazole Sodium 40 mg/ (Sodium Chloride) 110 mls @ 330 mls/hr IV Q24 [facility] Fentanyl () 100 mls @ 2.5 mls/hr IV .Q40H [facility] Last Admin: 11/16/17 19:47 Dose: 2.5 mls/hr Sodium Chloride () 250 mls @ 15 mls/hr IV .[id number] PRN PRN Reason: SALINE FLUSH Propofol (Diprivan) 1,000 mg in 100 mls @ 1.611 mls/hr CONT INF .Q12H [facility]; 5 MCG/KG/MIN PRN Reason: Protocol Last Admin: 11/17/17 04:37 Dose: 1.611 mls/hr Ceftriaxone Sodium (Rocephin) 1 gm in 50 mls @ 100 mls/hr IV Q12 [facility] Loratadine (Claritin) 5 mg PO DAILY [facility] Magnesium Hydroxide (Milk Of Magnesia) 30 ml PO DAILY PRN PRN PRN Reason: Constipation Meclizine HCl (Antivert) 25 mg PO BID PRN PRN PRN Reason: DIZZINESS Methylprednisolone (Solu-Medrol) 40 mg IV Q8 [facility] Last Admin: 11/17/17 06:50 Dose: 40 mg Metoprolol Tartrate (Lopressor (Beta Gela)) 5 mg IV Q5M PRN PRN Reason: BLOOD PRESSURE Propranolol HCl (Inderal) 10 mg PO DAILY [facility] Sodium Chloride () 5 - 30 ml IV UD PRN PRN Reason: SALINE FLUSH Last Admin: 11/16/17 21:38 Dose: 10 ml Medical Necessity - Tobacco Use Smoking Status: Current every day smoker Tobacco Use: Cigarettes Assessment/Plan All Active Problems Acute respiratory failure with hypoxemia (Acute) COPD with acute exacerbation (Acute) Fall (Acute) Alcohol abuse (Acute) 57-year-old patient admitted with a complaint of 4 day history of shortness of breath and worsening cough productive of greenish yellow sputum. 1. Acute hypoxic and hypercapnic respiratory failure due to COPD exacerbation and pneumonia * intubated; today is day 2. Vent settings: AC/VC; TV 450mls, FiO2-30%, * ABGs done in the ED showed severe respiratory acidosis with CO2 97.4 * Chest x-ray showed no focal infiltrate and showed evidence of severe emphysematous changes. * Communications Administrator on board. To remain intubated until chest CT done to rule out possible PE. * Cultures pending respiratory cultures and Gram stain pending influenza screen was negative. * White cell count trended up to 15. Continue IV ceftriaxone and azithromycin. * On IV supplement of 40 mg weekly * Breathing treatment with DuoNeb's * 2. Sepsis due to community acquired pneumonia * had low grade fever of ~ 99.5F overnight * wbc trended down to 15. * lactic acid trended up to 3.1; will check today * on IV ceftriaxone and azithromycin * 2D echo pending * to get chest CT today; CXR didnt really show any infiltrate though mother said she had been complaining of fever and cough productive of thick yellowish greenish sputum. 3. COPD exacerbation * as documented under 1. * intubated and sedated with propofol o/a of severe respiratory acidosis * breathing treatments, IV solumedrol, antibiotics * pulmonology on board * 4. Elevated troponins * initial troponin-0.225; trended down to 0.171 and 0.065; may have been due to LEOBARDO as well * EKG showed sinus tachycardia with no acute ST changes * will await echo and monitor * 5. AK I * likely prerenal due to decreased intake * resolving. Cr down to 0.76, from 1.35 on admission * continue IVF administration * * 6. Hypertension * BP elevated on admission likely due to agitation from hypoxia * control has improved * BP now 120s systolic * will monitor; continue BP meds- * 7. POlycythemia * Resolving. Was likely due to hemoconcentration. Hemoglobin was 17.6 on admission is now down to 14.9. * Will continue to monitor. * 8. GERD: give PPI DVT prophylaxis: Lovenox CODE STATUS: FULL CODE. This note was generated with Go800ation software. It may contain incorrect words, spelling, and punctuation that were not noted in checking the note before signing. * * Code Visit Inpatient E&M: 00630 Subs Hosp L3
[2017-11-17] MEDS: Chlorhexidine 15 ML PO ×2 (10:49→20:50)
[2017-11-17] MEDS: Enoxaparin 40 MG/0.4 ML Syringe SC (10:49)
[2017-11-17] MEDS: Ceftriaxone 1 GM/50 ML BAG IV ×2 (12:02→23:03)
[2017-11-17] MEDS: Vital AF 1.2 Cal Liquid 1,000 ML 60 ML GT (12:04)
[2017-11-17] MEDS: FLUoxetine 20 MG Capsule 40 MG GT (12:05)
[2017-11-17] MEDS: Aspirin 81 MG TAB.CHEW GT (12:05)
[2017-11-17 12:51] LABS: Bedside Glucose 128 mg/dL (70-110)
[2017-11-17] MEDS: 0.9% NaCl Peripheral Flush Adult/Peds IV ×2 (14:41→23:08)
[2017-11-17] MEDS: Insulin Lispro 100 UNIT/ML INSULN.PEN SC (18:25)
[2017-11-17 18:36] LABS: Bedside Glucose 175 mg/dL (70-110)
[2017-11-18] VITALS (39 sets, daily range): BP systolic 99–162; BP diastolic 74–102; PULSE 64–99; RESP 12–25; TEMP 36.8–37.1; O2SAT 91–100
[2017-11-18] MEDS: Insulin Lispro 100 UNIT/ML INSULN.PEN SC ×3 (00:11→11:57)
[2017-11-18 00:35] LABS: Bedside Glucose 189 mg/dL (70-110)
[2017-11-18] MEDS: Ipratropium/Albuterol Sulfate 3 ML AMPUL.NEB INHALATION ×6 (02:42→22:58)
[2017-11-18] MEDS: 0.9% NaCl Peripheral Flush Adult/Peds IV ×5 (04:49→22:29)
[2017-11-18 05:28] LABS: Anion Gap 8 (5-15); BUN 32 mg/dL (7-18); Calcium,Total 8.5 mg/dL (8.5-10.1); Chloride 104 mmol/L (98-107); Creatinine, Serum 0.73 mg/dL (0.55-1.02); EST Glomerular Filtration Rate 88 mL/min (>60); Est Glom Filt Rate - Afr Amer 106 mL/min (>60); Glucose 157 mg/dL (74-106); Potassium 3.8 mmol/L (3.5-5.1); Sodium Level 143 mmol/L (136-145)
[2017-11-18 06:09] LABS: Absolute Lymphocyte Count 1.38 X10^3/ul (0.83-4.51); Absolute Neutrophil Count 15.4 X10^3/uL (2.0-7.7); Basophil# 0.04 X10^3/uL; Basophil% 0.2 % (0-1); Hematocrit 43.2 % (37-47); Hemoglobin 13.8 g/dl (12.0-15.0); Lymphocyte # 1.38 X10^3/ul (4.0); Lymphocyte % 7.6 % (19-41); Mean Corp Hgb Conc 31.9 g/gl (32-36); Mean Corpuscular Hgb 30.4 pg (27.0-32.0); Mean Corpuscular Volume 95.2 fL (81-99); Mean Platelet Vol. 9.8 fl (6.2-12.0); Monocyte# 1.01 X10^3/uL; Monocyte% 5.6 % (0-10); Neutrophil # 15.38 X10^3/uL (2.7-7.7); Neutrophil % 85.3 % (47-70); Platelet Count 212 K/mm3 (150-450); RBC Distribution Width CV 13.2 % (11.6-14.6); RBC Distribution Width SD 45.8 fl (35.1-43.9); Red Blood Count 4.54 M/mm3 (4.2-5.4)
[2017-11-18 06:11] LABS: Allen Test POS; Base Excess 9 mmol/L (-2 to +2); Bicarbonate 33.1 mmol/L (22-26); Blood Gas Specimen Type ART; FI02 30; Mode CPAP PS; O2 Delivery Device Vent; PEEP 5; PO2 69 mmHG (75-100); PS 5; SITE R Radial; SO2 94 % (95-99); Time Given 600; Total Carbon Dioxide 35 mmol/L; pCO2 48.9 mmHg (35-45); pH 7.44 (7.35-7.45)
[2017-11-18 06:20] LABS: Differential Indicated SCAN CRITERIA MET; POSITIVE COUNT NO; POSITIVE DIFFERENTIAL NO; POSITIVE MORPHOLOGY YES
--- NOTE | 2017-11-18 06:39 | PN_ITS ---
Subjective: Patient did well overnight. No acute issues were reported. Patient was tolerating tube feeds well. Patient did have a spontaneous breathing trial this morning and was able to make it 1 hour. ABG at the end showed adequate oxygenation and ventilation and patient was liberated from the ventilator under my direct supervision. Respiratory did report some thick yellow secretions over the weekend, but feels this is improving. General: Alert, Oriented x3, Cooperative, No apparent distress, - - Vocalizing well following extubation HEENT: Atraumatic, PERRLA, EOMI, Normocephalic, - - No scleral icterus or injection noted. Oral: Moist Mucosa, No Gingival or Mucosal Lesions/ Ulcerations Neck: Supple, No JVD, No Nodes, Trachea Midline Lungs: No rhonchi, No rales, Diminished, Wheezes - Sporadic, - - Symmetric expansion. No dullness to percussion. Cardiovascular: Regular rate, Regular Rhythm, Normal S1, Normal S2, No murmurs, No rub noted, No Gallop Abdomen: Bowel Sounds Present, Soft, Non Tender, Non-Distended Extremities: No cyanosis, No edema, Capillary Refill Less than 3 Seconds, Clubbing Skin: No rashes, No breakdown Musculoskeletal: No Tenderness to Palpation of Joints or Extremities Lymphatic: No Cervical, Supraclavicular, or Inguinal Adenopathy Neurological: Cranial nerves II-XII grossly intact, Neuro grossly intact, Motor Exam 5/5 strength throughout Psych/Mental Status: Normal Affect, Appropriate Vital Signs Temp Pulse Resp BP Pulse Ox 36.9 C 71 16 116/85 H 95 11/18/17 06:00 11/18/17 06:00 11/18/17 06:00 11/18/17 06:00 11/18/17 06:00 Oxygen Flow Rate (L/min) 15 Oxygen Delivery Method Mechanical Ventilator Weight: 56.9 kg Body Mass Index (BMI) 18.6 Intake and Output for Last 24 Hours 11/16/17 11/17/17 11/18/17 23:59 23:59 23:59 Intake Total 3810.2 / 3810.2 737.3 / 737.3 Output Total 800 / 800 100 / 100 Balance 3010.2 / 3010.2 637.3 / 637.3 Labs (Last 48 Hours) 08/04/18 08/04/18 08/04/18 17:06 18:05 18:27 WBC RBC Hgb Hct MCV MCH MCHC RDW RDW Differential Plt Count MPV Immature Gran % (Auto) Neut % (Auto) Lymph % (Auto) [place] % (Auto) Eos % (Auto) Baso % (Auto) Absolute Neuts (auto) Absolute Lymphs (auto) Total Counted Specimen Type ART BYRON ART Sample Site R Radial R RADIAL L Brachial pH 7.16 L* 7.22 L 7.21 L Bicarbonate Actual 35.1 H 32.8 H 33.2 H POC Total CO2 38 35 36 Base Excess 6 H 5 H 5 H O2 Saturation 93 L 80 L 92 L O2 % 50 45 45 ABG pCO2 97.4 H* 80.6 H* 82.8 H* ABG pO2 90 56 L 82 Jorge Luis Test POS POS NA Respiration Rate O2 Delivery Device Vent Mask Bi Pap Bi / C PAP Minute Volume Vent Mode Tidal Volume POC PEEP POC Pressure Suppt EPAP 6 6 IPAP 12 12 Blood Gas Notified Whom ED MD ED MD ED MD Blood Gas Notified Time 1706 1805 1820 Sodium Potassium Chloride Carbon Dioxide Anion Gap BUN Creatinine Estim Creat Clear Calc Est GFR (MDRD) Af Amer Est GFR (MDRD) Non-Af BUN/Creatinine Ratio Glucose Lactic Acid Calcium Magnesium Total Creatine Kinase Troponin I Triglycerides Cholesterol LDL Cholesterol VLDL Cholesterol HDL Cholesterol MRSA (PCR) POC Glucose 11/16/17 11/16/17 11/16/17 19:20 19:20 20:00 WBC RBC Hgb Hct MCV MCH MCHC RDW RDW Differential Plt Count MPV Immature Gran % (Auto) Neut % (Auto) Lymph % (Auto) [place] % (Auto) Eos % (Auto) Baso % (Auto) Absolute Neuts (auto) Absolute Lymphs (auto) Total Counted Specimen Type Sample Site pH Bicarbonate Actual POC Total CO2 Base Excess O2 Saturation O2 % ABG pCO2 ABG pO2 Jorge Luis Test Respiration Rate O2 Delivery Device Minute Volume Vent Mode Tidal Volume POC PEEP POC Pressure Suppt EPAP IPAP Blood Gas Notified Whom Blood Gas Notified Time Sodium Potassium Chloride Carbon Dioxide Anion Gap BUN Creatinine Estim Creat Clear Calc Est GFR (MDRD) Af Amer Est GFR (MDRD) Non-Af BUN/Creatinine Ratio Glucose Lactic Acid Calcium Magnesium 2.7 H Total Creatine Kinase Troponin I 0.171 H Triglycerides Cholesterol LDL Cholesterol VLDL Cholesterol HDL Cholesterol MRSA (PCR) Negative POC Glucose 0811/16/17 11/16/17 20:55 21:40 23:32 WBC RBC Hgb Hct MCV MCH MCHC RDW RDW Differential Plt Count MPV Immature Gran % (Auto) Neut % (Auto) Lymph % (Auto) [place] % (Auto) Eos % (Auto) Baso % (Auto) Absolute Neuts (auto) Absolute Lymphs (auto) Total Counted Specimen Type ART ART Sample Site R Radial R Radial pH 7.27 L 7.40 Bicarbonate Actual 32.6 H 31.5 H POC Total CO2 35 33 Base Excess 6 H 7 H O2 Saturation 100 H 99 O2 % 100 40 ABG pCO2 70.8 H* 51.0 H ABG pO2 541 H* 138 H Jorge Luis Test Respiration Rate 16 16 O2 Delivery Device Vent Vent Minute Volume 8.00 8.00 Vent Mode A-C A-C Tidal Volume 450 450 POC PEEP 5 5 POC Pressure Suppt EPAP IPAP Blood Gas Notified Whom HOSP MD HOSP MD Blood Gas Notified Time 2049 2325 Sodium Potassium Chloride Carbon Dioxide Anion Gap BUN Creatinine Estim Creat Clear Calc Est GFR (MDRD) Af Amer Est GFR (MDRD) Non-Af BUN/Creatinine Ratio Glucose Lactic Acid 3.1 H Calcium Magnesium Total Creatine Kinase Troponin I Triglycerides Cholesterol LDL Cholesterol VLDL Cholesterol HDL Cholesterol MRSA (PCR) POC Glucose 11/17/17 11/17/17 11/17/17 03:45 03:45 03:45 WBC 15.3 H RBC 4.82 Hgb 14.9 Hct 46.2 MCV 95.9 MCH 30.9 MCHC 32.3 RDW 13.2 RDW Differential 46.1 H Plt Count 213 MPV 10.0 Immature Gran % (Auto) 0.400 Neut % (Auto) 84.3 H Lymph % (Auto) 10.8 L [place] % (Auto) 4.2 Eos % (Auto) 0.0 Baso % (Auto) 0.3 Absolute Neuts (auto) 12.9 H Absolute Lymphs (auto) 1.65 Total Counted Not Reportable Specimen Type Sample Site pH Bicarbonate Actual POC Total CO2 Base Excess O2 Saturation O2 % ABG pCO2 ABG pO2 Jorge Luis Test Respiration Rate O2 Delivery Device Minute Volume Vent Mode Tidal Volume POC PEEP POC Pressure Suppt EPAP IPAP Blood Gas Notified Whom Blood Gas Notified Time Sodium 143 Potassium 4.2 Chloride 104 Carbon Dioxide 30.0 Anion Gap 9 BUN 33 H Creatinine 0.76 Estim Creat Clear Calc 69.23 Est GFR (MDRD) Af Amer 101 Est GFR (MDRD) Non-Af 84 BUN/Creatinine Ratio 43.6 H Glucose 140 H Lactic Acid Calcium 8.5 Magnesium Total Creatine Kinase 67 Troponin I Triglycerides 139 141 Cholesterol 138 LDL Cholesterol 81 VLDL Cholesterol 28 HDL Cholesterol 29 L MRSA (PCR) POC Glucose 11/17/17 11/17/17 11/17/17 12:35 18:20 Unknown WBC RBC Hgb Hct MCV MCH MCHC RDW RDW Differential Plt Count MPV Immature Gran % (Auto) Neut % (Auto) Lymph % (Auto) [place] % (Auto) Eos % (Auto) Baso % (Auto) Absolute Neuts (auto) Absolute Lymphs (auto) Total Counted Specimen Type Sample Site pH Bicarbonate Actual POC Total CO2 Base Excess O2 Saturation O2 % ABG pCO2 ABG pO2 Jorge Luis Test Respiration Rate O2 Delivery Device Minute Volume Vent Mode Tidal Volume POC PEEP POC Pressure Suppt EPAP IPAP Blood Gas Notified Whom Blood Gas Notified Time Sodium Potassium Chloride Carbon Dioxide Anion Gap BUN Creatinine Estim Creat Clear Calc Est GFR (MDRD) Af Amer Est GFR (MDRD) Non-Af BUN/Creatinine Ratio Glucose Lactic Acid Calcium Magnesium Total Creatine Kinase Troponin I 0.065 H Triglycerides Cholesterol LDL Cholesterol VLDL Cholesterol HDL Cholesterol MRSA (PCR) POC Glucose 128 H 175 H 11/18/17 11/18/17 11/18/17 00:10 04:45 04:45 WBC 18.0 H RBC 4.54 Hgb 13.8 Hct 43.2 MCV 95.2 MCH 30.4 MCHC 31.9 L RDW 13.2 RDW Differential 45.8 H Plt Count 212 MPV 9.8 Immature Gran % (Auto) 1.300 H Neut % (Auto) 85.3 H Lymph % (Auto) 7.6 L [place] % (Auto) 5.6 Eos % (Auto) 0.0 Baso % (Auto) 0.2 Absolute Neuts (auto) 15.4 H Absolute Lymphs (auto) 1.38 Total Counted Pending Specimen Type Sample Site pH Bicarbonate Actual POC Total CO2 Base Excess O2 Saturation O2 % ABG pCO2 ABG pO2 Jorge Luis Test Respiration Rate O2 Delivery Device Minute Volume Vent Mode Tidal Volume POC PEEP POC Pressure Suppt EPAP IPAP Blood Gas Notified Whom Blood Gas Notified Time Sodium 143 Potassium 3.8 Chloride 104 Carbon Dioxide 31.0 Anion Gap 8 BUN 32 H Creatinine 0.73 Estim Creat Clear Calc 74.90 Est GFR (MDRD) Af Amer 106 Est GFR (MDRD) Non-Af 88 BUN/Creatinine Ratio 44.0 H Glucose 157 H Lactic Acid Calcium 8.5 Magnesium Total Creatine Kinase Troponin I Triglycerides Cholesterol LDL Cholesterol VLDL Cholesterol HDL Cholesterol MRSA (PCR) POC Glucose 189 H 11/18/17 06:05 WBC RBC Hgb Hct MCV MCH MCHC RDW RDW Differential Plt Count MPV Immature Gran % (Auto) Neut % (Auto) Lymph % (Auto) [place] % (Auto) Eos % (Auto) Baso % (Auto) Absolute Neuts (auto) Absolute Lymphs (auto) Total Counted Specimen Type ART Sample Site R Radial pH 7.44 Bicarbonate Actual 33.1 H POC Total CO2 35 Base Excess 9 H O2 Saturation 94 L O2 % 30 ABG pCO2 48.9 H ABG pO2 69 L Jorge Luis Test POS Respiration Rate O2 Delivery Device Vent Minute Volume Vent Mode CPAP PS Tidal Volume POC PEEP 5 POC Pressure Suppt 5 EPAP IPAP Blood Gas Notified Whom ICU MD Blood Gas Notified Time 600 Sodium Potassium Chloride Carbon Dioxide Anion Gap BUN Creatinine Estim Creat Clear Calc Est GFR (MDRD) Af Amer Est GFR (MDRD) Non-Af BUN/Creatinine Ratio Glucose Lactic Acid Calcium Magnesium Total Creatine Kinase Troponin I Triglycerides Cholesterol LDL Cholesterol VLDL Cholesterol HDL Cholesterol MRSA (PCR) POC Glucose Microbiology 11/17/17 12:45 Urine Catheter - Ravi Streptococcus pneumoniae Antigen (M - Final 11/17/17 12:45 Urine, Random Legionella Antigen - Final 11/16/17 20:30 Sputum, Expectorated/Coughed Gram Stain - Final 11/16/17 20:30 Sputum, Expectorated/Coughed Respiratory Culture - Preliminary Culture exhibits no growth. 11/16/17 20:09 Mucosa - Nasopharyngeal Respiratory Panel (PCR) - Final Rhinovirus 11/16/17 20:09 Mucosa - Nasopharyngeal Influenza Types A,B Direct FA (ANT) - Final Clinical Impression(s) from Imaging Studies Chest CTA 11/17/17 06:43 Medical Necessity - Tobacco Use Smoking Status: Current every day smoker Tobacco Use: Cigarettes Assessment/Plan All Active Problems Acute respiratory failure with hypoxemia (Acute) COPD with acute exacerbation (Acute) Fall (Acute) Alcohol abuse (Acute) RECOMMENDATIONS: 1. Bedside swallow evaluation 2. Continue bronchodilators, steroids 3. Consider discontinuation of antibiotics 4. Wean FiO2 to maintain oxygen saturations at or above 90%. IMPRESSIONS: 1. Acute hypoxemic and hypercarbic respiratory failure presumed secondary to COPD with exacerbation secondary to rhinovirus. CTA of the chest did not show any pulmonary emboli. Patient does have advanced emphysematous changes noted. No focal infiltrates can be noted. Patient does have some pulmonary nodules that may need follow-up as an outpatient. Patient has tolerated extubation. Would keep steroids at current levels for 24 hours. Wean oxygen as tolerated. 2. Sepsis secondary to suspected tracheobronchitis Patient sputum culture is showing no growth to date. Patient does have advanced emphysematous changes that make infiltrate difficult to assess, but CT scan of the chest does not show any infiltrate. Given positive rhinovirus, likely okay to discontinue antibiotics from my standpoint. Monitor fever curve. 3. Acute kidney injury RESOLVED > likely prerenal in etiology, as the patient's creatinine responded to supplemental IV fluid hydration. Urine output is currently appropriate. No indication for renal replacement therapy. 4. Troponin elevation RESOLVED > likely secondary to demand ischemia in the setting of #1 and # 2. Surface echocardiogram is currently pending. 5. Hypertension/anxiety/GERD Complicates care, management, recovery and prognosis. TIME: 32 minutes of critical care time was spent adressing the patient's acute hypoxemic and hypercarbic respiratory failure, COPD with exacerbation, review of all data and collaboration with the care team. (5:30 AM to 6:30 AM) Code Visit 9xxxx: [id number] Critical care first hour
[2017-11-18] MEDS: 0.9% NaCl IVPB Med Flush (250 mL) 15 ML IV (06:53)
[2017-11-18 07:00] LABS: Bedside Glucose 166 mg/dL (70-110)
[2017-11-18 07:05] LABS: Atypical Lymphocyte RARE %; Differential Comment SCANNED
--- NOTE | 2017-11-18 09:20 | PCM.PN.HOSP ---
Patient Problems: Active and Suspected Problems Acute respiratory failure with hypoxemia (Acute) Subjective: Patient seen and examined. She was successfully extubated early this morning. She was saturating well on 3 L of oxygen. She denied any fever chills, shortness of breath, any cough or chest pain, abdominal pain, any diarrhea vomiting. Review of systems is otherwise negative. Labs and vitals reviewed. Vitals/I&O's: Vital Signs Temp Pulse Resp BP Pulse Ox 98.5 F 86 18 118/93 H 94 11/18/17 08:00 11/18/17 09:00 11/18/17 09:00 11/18/17 09:00 11/18/17 09:00 Oxygen Flow Rate (L/min) 3 Oxygen Delivery Method Nasal Cannula Weight: 125 lb 7.088 oz Body Mass Index (BMI) 18.6 Intake and Output for Last 24 Hours 11/16/17 11/17/17 11/18/17 23:59 23:59 23:59 Intake Total 3810.2 / 3810.2 1184.6 / 1184.6 Output Total 800 / 800 350 / 350 Balance 3010.2 / 3010.2 834.6 / 834.6 General: Alert, Oriented x3, Cooperative, No apparent distress HEENT: Atraumatic, PERRLA, EOMI, Normocephalic Oral: Dry Mucosa Neck: Supple, No JVD, Negative Carotid Bruits Lungs: Normal air movement, No rhonchi, Wheezes - bilaterally, - - lung sound very tight Cardiovascular: Regular rate, Regular Rhythm, Normal S1, Normal S2, No murmurs Abdomen: Bowel Sounds Present, Soft, Non Tender, Non-Distended, No Hepato-splenomegaly Extremities: No clubbing, No cyanosis, No edema, Capillary Refill Less than 3 Seconds Skin: No rashes, No breakdown Musculoskeletal: No Tenderness to Palpation of Joints or Extremities Lymphatic: No Cervical, Supraclavicular, or Inguinal Adenopathy Neurological: Cranial nerves II-XII grossly intact, Motor Exam 5/5 strength throughout Psych/Mental Status: Normal Affect, Appropriate, Alert and oriented to time, place, person, mood and affect Microbiology Past 72 Hours 11/17/17 12:45 Urine Catheter - Ravi Streptococcus pneumoniae Antigen (M - Final 11/17/17 12:45 Urine, Random Legionella Antigen - Final 11/16/17 20:30 Sputum, Expectorated/Coughed Gram Stain - Final 11/16/17 20:30 Sputum, Expectorated/Coughed Respiratory Culture - Preliminary Culture exhibits no growth. 11/16/17 20:09 Mucosa - Nasopharyngeal Respiratory Panel (PCR) - Final Rhinovirus 11/16/17 20:09 Mucosa - Nasopharyngeal Influenza Types A,B Direct FA (ANT) - Final Laboratory Results 11/17/17 12:35: POC Glucose 128 H 11/17/17 18:20: POC Glucose 175 H 11/18/17 00:10: POC Glucose 189 H 11/18/17 04:45: WBC 18.0 H, RBC 4.54, Hgb 13.8, Hct 43.2, MCV 95.2, MCH 30.4, MCHC 31.9 L, RDW 13.2, RDW Differential 45.8 H, Plt Count 212, MPV 9.8, Immature Gran % (Auto) 1.300 H, Neut % (Auto) 85.3 H, Lymph % (Auto) 7.6 L, Cameron % (Auto) 5.6, Eos % (Auto) 0.0, Baso % (Auto) 0.2, Absolute Neuts (auto) 15.4 H, Absolute Lymphs (auto) 1.38, Total Counted Not Reportable, Differential Comment SCANNED, Atypical Lymphocytes RARE 11/18/17 04:45: Sodium 143, Potassium 3.8, Chloride 104, Carbon Dioxide 31.0, Anion Gap 8, BUN 32 H, Creatinine 0.73, Estim Creat Clear Calc 74.90, Est GFR (MDRD) Af Amer 106, Est GFR (MDRD) Non-Af 88, BUN/Creatinine Ratio 44.0 H, Glucose 157 H, Calcium 8.5 11/18/17 06:05: Specimen Type ART, Sample Site R Radial, pH 7.44, Bicarbonate Actual 33.1 H, POC Total CO2 35, Base Excess 9 H, O2 Saturation 94 L, O2 % 30, ABG pCO2 48.9 H, ABG pO2 69 L, Jorge Luis Test POS, O2 Delivery Device Vent, Vent Mode CPAP PS, POC PEEP 5, POC Pressure Suppt 5, Blood Gas Notified Whom ICU , Blood Gas Notified Time 600 11/18/17 06:45: POC Glucose 166 H Diagnostic Data Chest X-Ray 11/16/17 20:25 IMPRESSION: Endotracheal tube and orogastric tube in grossly satisfactory positions. Hyperinflated lungs suggestive of underlying COPD. Electronically Signed: Yaima Jain MD at 21:48 EDT Tel , Service support , Chest CTA 11/17/17 06:43 Current Medications Albuterol Sulfate (Ventolin Aerosols) 2.5 mg INHALATION Q2H PRN PRN PRN Reason: SHORTNESS OF BREATH Albuterol/Ipratropium (Duoneb) 3 ml INHALATION Q4H.RT [facility] Last Admin: 11/18/17 07:04 Dose: 3 ml Aspirin (Aspirin, Baby) 81 mg GT DAILY [facility] Last Admin: 11/17/17 12:05 Dose: 81 mg Enoxaparin Sodium (Lovenox) 40 mg SC DAILY@1000 [facility] Last Admin: 11/17/17 10:49 Dose: 40 mg Fluoxetine HCl (Prozac) 40 mg GT DAILY [facility] Last Admin: 11/17/17 12:05 Dose: 40 mg Azithromycin 500 mg/ Dextrose 255 mls @ 250 mls/hr IV Q24 [facility] Last Admin: 11/17/17 12:37 Dose: 250 mls/hr Pantoprazole Sodium 40 mg/ (Sodium Chloride) 110 mls @ 330 mls/hr IV Q24 [facility] Last Admin: 11/17/17 10:43 Dose: 330 mls/hr Sodium Chloride () 250 mls @ 15 mls/hr IV .[id number] PRN PRN Reason: SALINE FLUSH Last Admin: 11/18/17 06:53 Dose: 15 mls/hr Ceftriaxone Sodium (Rocephin) 1 gm in 50 mls @ 100 mls/hr IV Q12 [facility] Last Admin: 11/17/17 23:03 Dose: 100 mls/hr Insulin Human Lispro (Humalog Kwikpen (Bkc)) 0 unit SC Q6 KYRA PRN Reason: Protocol Last Admin: 11/18/17 06:47 Dose: 2 u Methylprednisolone (Solu-Medrol) 40 mg IV Q8 [facility] Last Admin: 11/18/17 06:48 Dose: 40 mg Sodium Chloride () 5 - 30 ml IV UD PRN PRN Reason: SALINE FLUSH Last Admin: 11/18/17 06:48 Dose: 10 ml Medical Necessity - Tobacco Use Smoking Status: Current every day smoker Tobacco Use: Cigarettes Assessment/Plan All Active Problems Acute respiratory failure with hypoxemia (Acute) COPD with acute exacerbation (Acute) Fall (Acute) Alcohol abuse (Acute) 57-year-old patient admitted with a complaint of 4 day history of shortness of breath and worsening cough productive of greenish yellow sputum. 1. Acute hypoxic and hypercapnic respiratory failure due to COPD exacerbation and pneumonia Successfully extubated today. CT PE ruled out any pneumonia or PE. White cell count has trended down to 18. Respiratory panel showed rhinovirus. Influenza screen was negative and urine for strep and Legionella was also negative. Sputum Gram stain and culture showed no growth. Blood cultures are pending. Remains on IV ceftriaxone and azithromycin. IV Solu-Medrol 40 mg q. 8 Breathing treatments with duo nebs. 2. ?community acquired pneumonia admitted with leucocytosis and history of fever and productive cough. had a low grade fever which has resolved met SIRS criteria on admission, but it has now resolved started on IV ceftriaxone and azithromycin; had low grade fever of ~ 99.5F overnight Chest x-ray and chest CT however showed no evidence of pneumonia. Will consider Stopping antibiotics. 3. COPD exacerbation as documented under 1. successfully extubated today breathing treatments, IV solumedrol, pulmonology on board 4. Elevated troponins 0.025->0.171->0.065 likely due to LEOBARDO EKG showed no acute ST changes 2D echo: report pending 5. AK I likely prerenal due to decreased intake resolved. 6. Hypertension BP elevated on admission likely due to agitation from hypoxia control has improved BP now 120s systolic on propranolol 10mg daily at home, will consider resuming it. 7. GERD: give PPI DVT prophylaxis: Lovenox CODE STATUS: FULL CODE. This note was generated with [employer]ME[employer] software. It may contain incorrect words, spelling, and punctuation that were not noted in checking the note before signing. Code Visit Inpatient E&M: 55083 [facility]
--- NOTE | 2017-11-18 09:30 | PN_ITS ---
Patient Problems: Active and Suspected Problems Acute respiratory failure with hypoxemia (Acute) Subjective: Patient seen and examined. She was successfully extubated early this morning. She was saturating well on 3 L of oxygen. She denied any fever chills, shortness of breath, any cough or chest pain, abdominal pain, any diarrhea vomiting. Review of systems is otherwise negative. Labs and vitals reviewed. Vitals/I&O's: Vital Signs Temp Pulse Resp BP Pulse Ox 98.5 F 86 18 118/93 H 94 11/18/17 08:00 11/18/17 09:00 11/18/17 09:00 11/18/17 09:00 11/18/17 09:00 Oxygen Flow Rate (L/min) 3 Oxygen Delivery Method Nasal Cannula Weight: 125 lb 7.088 oz Body Mass Index (BMI) 18.6 Intake and Output for Last 24 Hours 11/16/17 11/17/17 11/18/17 23:59 23:59 23:59 Intake Total 3810.2 / 3810.2 1184.6 / 1184.6 Output Total 800 / 800 350 / 350 Balance 3010.2 / 3010.2 834.6 / 834.6 General: Alert, Oriented x3, Cooperative, No apparent distress HEENT: Atraumatic, PERRLA, EOMI, Normocephalic Oral: Dry Mucosa Neck: Supple, No JVD, Negative Carotid Bruits Lungs: Normal air movement, No rhonchi, Wheezes - bilaterally, - - lung sound very tight Cardiovascular: Regular rate, Regular Rhythm, Normal S1, Normal S2, No murmurs Abdomen: Bowel Sounds Present, Soft, Non Tender, Non-Distended, No Hepato- splenomegaly Extremities: No clubbing, No cyanosis, No edema, Capillary Refill Less than 3 Seconds Skin: No rashes, No breakdown Musculoskeletal: No Tenderness to Palpation of Joints or Extremities Lymphatic: No Cervical, Supraclavicular, or Inguinal Adenopathy Neurological: Cranial nerves II-XII grossly intact, Motor Exam 5/5 strength throughout Psych/Mental Status: Normal Affect, Appropriate, Alert and oriented to time, place, person, mood and affect Microbiology Past 72 Hours 11/17/17 12:45 Urine Catheter - Ravi Streptococcus pneumoniae Antigen (M - Final 11/17/17 12:45 Urine, Random Legionella Antigen - Final 11/16/17 20:30 Sputum, Expectorated/Coughed Gram Stain - Final 11/16/17 20:30 Sputum, Expectorated/Coughed Respiratory Culture - Preliminary Culture exhibits no growth. 11/16/17 20:09 Mucosa - Nasopharyngeal Respiratory Panel (PCR) - Final Rhinovirus 11/16/17 20:09 Mucosa - Nasopharyngeal Influenza Types A,B Direct FA (ANT) - Final Laboratory Results 11/17/17 12:35: POC Glucose 128 H 11/17/17 18:20: POC Glucose 175 H 11/18/17 00:10: POC Glucose 189 H 11/18/17 04:45: WBC 18.0 H, RBC 4.54, Hgb 13.8, Hct 43.2, MCV 95.2, MCH 30.4, MCHC 31.9 L, RDW 13.2, RDW Differential 45.8 H, Plt Count 212, MPV 9.8, Immature Gran % (Auto) 1.300 H, Neut % (Auto) 85.3 H, Lymph % (Auto) 7.6 L, [place] % (Auto) 5.6, Eos % (Auto) 0.0, Baso % (Auto) 0.2, Absolute Neuts (auto) 15.4 H, Absolute Lymphs (auto) 1.38, Total Counted Not Reportable, Differential Comment SCANNED, Atypical Lymphocytes RARE 11/18/17 04:45: Sodium 143, Potassium 3.8, Chloride 104, Carbon Dioxide 31.0, Anion Gap 8, BUN 32 H, Creatinine 0.73, Estim Creat Clear Calc 74.90, Est GFR ( MDRD) Af Amer 106, Est GFR (MDRD) Non-Af 88, BUN/Creatinine Ratio 44.0 H, Glucose 157 H, Calcium 8.5 11/18/17 06:05: Specimen Type ART, Sample Site R Radial, pH 7.44, Bicarbonate Actual 33.1 H, POC Total CO2 35, Base Excess 9 H, O2 Saturation 94 L, O2 % 30, ABG pCO2 48.9 H, ABG pO2 69 L, Jorge Luis Test POS, O2 Delivery Device Vent, Vent Mode CPAP PS, POC PEEP 5, POC Pressure Suppt 5, Blood Gas Notified Whom ICU , Blood Gas Notified Time 600 11/18/17 06:45: POC Glucose 166 H Diagnostic Data Chest X-Ray 11/16/17 20:25 IMPRESSION: Endotracheal tube and orogastric tube in grossly satisfactory positions. Hyperinflated lungs suggestive of underlying COPD. Electronically Signed: Yaima Jain MD at 21:48 EDT Tel , Service support , Chest CTA 11/17/17 06:43 Current Medications Albuterol Sulfate (Ventolin Aerosols) 2.5 mg INHALATION Q2H PRN PRN PRN Reason: SHORTNESS OF BREATH Albuterol/Ipratropium (Duoneb) 3 ml INHALATION Q4H.RT [facility] Last Admin: 11/18/17 07:04 Dose: 3 ml Aspirin (Aspirin, Baby) 81 mg GT DAILY [facility] Last Admin: 11/17/17 12:05 Dose: 81 mg Enoxaparin Sodium (Lovenox) 40 mg SC DAILY@1000 [facility] Last Admin: 11/17/17 10:49 Dose: 40 mg Fluoxetine HCl (Prozac) 40 mg GT DAILY [facility] Last Admin: 11/17/17 12:05 Dose: 40 mg Azithromycin 500 mg/ Dextrose 255 mls @ 250 mls/hr IV Q24 [facility] Last Admin: 11/17/17 12:37 Dose: 250 mls/hr Pantoprazole Sodium 40 mg/ (Sodium Chloride) 110 mls @ 330 mls/hr IV Q24 [facility] Last Admin: 11/17/17 10:43 Dose: 330 mls/hr Sodium Chloride () 250 mls @ 15 mls/hr IV .[id number] PRN PRN Reason: SALINE FLUSH Last Admin: 11/18/17 06:53 Dose: 15 mls/hr Ceftriaxone Sodium (Rocephin) 1 gm in 50 mls @ 100 mls/hr IV Q12 [facility] Last Admin: 11/17/17 23:03 Dose: 100 mls/hr Insulin Human Lispro (Humalog Kwikpen (Bkc)) 0 unit SC Q6 [facility] PRN Reason: Protocol Last Admin: 11/18/17 06:47 Dose: 2 u Methylprednisolone (Solu-Medrol) 40 mg IV Q8 [facility] Last Admin: 11/18/17 06:48 Dose: 40 mg Sodium Chloride () 5 - 30 ml IV UD PRN PRN Reason: SALINE FLUSH Last Admin: 11/18/17 06:48 Dose: 10 ml Medical Necessity - Tobacco Use Smoking Status: Current every day smoker Tobacco Use: Cigarettes Assessment/Plan All Active Problems Acute respiratory failure with hypoxemia (Acute) COPD with acute exacerbation (Acute) Fall (Acute) Alcohol abuse (Acute) 57-year-old patient admitted with a complaint of 4 day history of shortness of breath and worsening cough productive of greenish yellow sputum. 1. Acute hypoxic and hypercapnic respiratory failure due to COPD exacerbation and pneumonia * Successfully extubated today. * CT PE ruled out any pneumonia or PE. * White cell count has trended down to 18. * Respiratory panel showed rhinovirus. Influenza screen was negative and urine for strep and Legionella was also negative. Sputum Gram stain and culture showed no growth. Blood cultures are pending. * Remains on IV ceftriaxone and azithromycin. * IV Solu-Medrol 40 mg q. 8 * Breathing treatments with duo nebs. * 2. ?community acquired pneumonia * admitted with leucocytosis and history of fever and productive cough. * had a low grade fever which has resolved * met SIRS criteria on admission, but it has now resolved * started on IV ceftriaxone and azithromycin; * had low grade fever of ~ 99.5F overnight * Chest x-ray and chest CT however showed no evidence of pneumonia. * Will consider Stopping antibiotics. * 3. COPD exacerbation * as documented under 1. * successfully extubated today * breathing treatments, IV solumedrol, * pulmonology on board * 4. Elevated troponins * 0.025->0.171->0.065 * likely due to LEOBARDO * EKG showed no acute ST changes * 2D echo: report pending * 5. AK I * likely prerenal due to decreased intake * resolved. * * 6. Hypertension * BP elevated on admission likely due to agitation from hypoxia * control has improved * BP now 120s systolic * on propranolol 10mg daily at home, will consider resuming it. * 7. GERD: give PPI DVT prophylaxis: Lovenox CODE STATUS: FULL CODE. This note was generated with GetAutoBidsation software. It may contain incorrect words, spelling, and punctuation that were not noted in checking the note before signing. * * Code Visit Inpatient E&M: 38636 [facility] Hosp L3
[2017-11-18] MEDS: Ceftriaxone 1 GM/50 ML BAG IV ×2 (10:37→21:26)
[2017-11-18] MEDS: Enoxaparin 40 MG/0.4 ML Syringe SC (10:38)
[2017-11-18] MEDS: Aspirin 81 MG TAB.CHEW GT (11:57)
[2017-11-18] MEDS: Propranolol 10 MG Tablet PO (11:57)
[2017-11-18] MEDS: FLUoxetine 20 MG Capsule 40 MG GT (11:58)
[2017-11-18 12:26] LABS: Bedside Glucose 171 mg/dL (70-110)
--- NOTE | 2017-11-18 13:47 | CASEMGMT ---
See RN CM Assessment. DC PLAN: HOME -recommend Oxygen testing prior to dc. [facility]. Pt lives in [place], agree[place] [facility]. Abilio TARANGON RN AC
[2017-11-18 16:45] LABS: Bedside Glucose 112 mg/dL (70-110)
[2017-11-18 21:51] LABS: Bedside Glucose 125 mg/dL (70-110)
[2017-11-19] VITALS (23 sets, daily range): BP systolic 120–149; BP diastolic 69–99; PULSE 59–95; RESP 10–20; TEMP 36.4–37.2; O2SAT 87–100
[2017-11-19] MEDS: 0.9% NaCl Peripheral Flush Adult/Peds IV (06:08)
[2017-11-19 06:16] LABS: Bedside Glucose 132 mg/dL (70-110)
[2017-11-19] MEDS: Ipratropium/Albuterol Sulfate 3 ML AMPUL.NEB INHALATION ×3 (07:13→19:54)
--- NOTE | 2017-11-19 07:31 | PN_ITS ---
Subjective: Patient did well overnight. Patient was successfully liberated from the ventilator yesterday and has remained on 2 L nasal cannula overnight. Patient has had a productive cough, but able to mobilize secretions without difficulty. Patient feels subjective improvement in overall condition. General: Alert, Oriented x3, Cooperative, No apparent distress, - - Speaking in full sentences. Appears older than stated age. HEENT: Atraumatic, PERRLA, EOMI, Normocephalic, - - No scleral icterus or injection noted. Oral: Moist Mucosa, No Gingival or Mucosal Lesions/ Ulcerations Neck: Supple, No JVD, No Nodes, Trachea Midline Lungs: No rhonchi, No rales, Diminished, Wheezes - Sporadic, - - Symmetric expansion. No dullness to percussion. Cardiovascular: Regular rate, Regular Rhythm, Normal S1, Normal S2, No murmurs, No rub noted, No Gallop Abdomen: Bowel Sounds Present, Soft, Non Tender, Non-Distended Extremities: No cyanosis, No edema, Capillary Refill Less than 3 Seconds, Clubbing Skin: No rashes, No breakdown Musculoskeletal: No Tenderness to Palpation of Joints or Extremities Lymphatic: No Cervical, Supraclavicular, or Inguinal Adenopathy Neurological: Cranial nerves II-XII grossly intact, Neuro grossly intact, Motor Exam 5/5 strength throughout Psych/Mental Status: Alert and oriented to time, place, person, mood and affect Vital Signs Temp Pulse Resp BP Pulse Ox 37.2 C 66 10 L 120/90 H 100 11/19/17 04:00 11/19/17 07:00 11/19/17 07:00 11/19/17 07:00 11/19/17 07:00 Oxygen Flow Rate (L/min) 2 Oxygen Delivery Method Nasal Cannula Weight: 57.8 kg Body Mass Index (BMI) 18.6 Intake and Output for Last 24 Hours 11/17/17 11/18/17 11/19/17 23:59 23:59 23:59 Intake Total 3810.2 / 3810.2 2022.6 / 2022.6 360 / 360 Output Total 800 / 800 950 / 950 560 / 560 Balance 3010.2 / 3010.2 1072.6 / 1072.6 -200 / -200 Labs (Last 48 Hours) 11/16/17 11/17/17 11/17/17 18:05 12:35 18:20 WBC RBC Hgb Hct MCV MCH MCHC RDW RDW Differential Plt Count MPV Immature Gran % (Auto) Neut % (Auto) Lymph % (Auto) [place] % (Auto) Eos % (Auto) Baso % (Auto) Absolute Neuts (auto) Absolute Lymphs (auto) Total Counted Differential Comment Atypical Lymphocytes Specimen Type BYRON Sample Site R RADIAL pH 7.22 L Bicarbonate Actual 32.8 H POC Total CO2 35 Base Excess 5 H O2 Saturation 80 L O2 % 45 ABG pCO2 80.6 H* ABG pO2 56 L Jorge Luis Test POS O2 Delivery Device Bi Pap Vent Mode POC PEEP POC Pressure Suppt EPAP 6 IPAP 12 Blood Gas Notified Whom ED MD Blood Gas Notified Time 1805 Sodium Potassium Chloride Carbon Dioxide Anion Gap BUN Creatinine Estim Creat Clear Calc Est GFR (MDRD) Af Amer Est GFR (MDRD) Non-Af BUN/Creatinine Ratio Glucose Calcium Troponin I POC Glucose 128 H 175 H 11/17/17 11/18/17 11/18/17 Unknown 00:10 04:45 WBC 18.0 H RBC 4.54 Hgb 13.8 Hct 43.2 MCV 95.2 MCH 30.4 MCHC 31.9 L RDW 13.2 RDW Differential 45.8 H Plt Count 212 MPV 9.8 Immature Gran % (Auto) 1.300 H Neut % (Auto) 85.3 H Lymph % (Auto) 7.6 L [place] % (Auto) 5.6 Eos % (Auto) 0.0 Baso % (Auto) 0.2 Absolute Neuts (auto) 15.4 H Absolute Lymphs (auto) 1.38 Total Counted Not Reportable Differential Comment SCANNED Atypical Lymphocytes RARE Specimen Type Sample Site pH Bicarbonate Actual POC Total CO2 Base Excess O2 Saturation O2 % ABG pCO2 ABG pO2 Jorge Luis Test O2 Delivery Device Vent Mode POC PEEP POC Pressure Suppt EPAP IPAP Blood Gas Notified Whom Blood Gas Notified Time Sodium Potassium Chloride Carbon Dioxide Anion Gap BUN Creatinine Estim Creat Clear Calc Est GFR (MDRD) Af Amer Est GFR (MDRD) Non-Af BUN/Creatinine Ratio Glucose Calcium Troponin I 0.065 H POC Glucose 189 H 11/18/17 11/18/17 11/18/17 04:45 06:05 06:45 WBC RBC Hgb Hct MCV MCH MCHC RDW RDW Differential Plt Count MPV Immature Gran % (Auto) Neut % (Auto) Lymph % (Auto) [place] % (Auto) Eos % (Auto) Baso % (Auto) Absolute Neuts (auto) Absolute Lymphs (auto) Total Counted Differential Comment Atypical Lymphocytes Specimen Type ART Sample Site R Radial pH 7.44 Bicarbonate Actual 33.1 H POC Total CO2 35 Base Excess 9 H O2 Saturation 94 L O2 % 30 ABG pCO2 48.9 H ABG pO2 69 L Jorge Luis Test POS O2 Delivery Device Vent Vent Mode CPAP PS POC PEEP 5 POC Pressure Suppt 5 EPAP IPAP Blood Gas Notified Whom ICU MD Blood Gas Notified Time 600 Sodium 143 Potassium 3.8 Chloride 104 Carbon Dioxide 31.0 Anion Gap 8 BUN 32 H Creatinine 0.73 Estim Creat Clear Calc 74.90 Est GFR (MDRD) Af Amer 106 Est GFR (MDRD) Non-Af 88 BUN/Creatinine Ratio 44.0 H Glucose 157 H Calcium 8.5 Troponin I POC Glucose 166 H 11/18/17 11/18/17 11/18/17 11:51 16:40 21:23 WBC RBC Hgb Hct MCV MCH MCHC RDW RDW Differential Plt Count MPV Immature Gran % (Auto) Neut % (Auto) Lymph % (Auto) [place] % (Auto) Eos % (Auto) Baso % (Auto) Absolute Neuts (auto) Absolute Lymphs (auto) Total Counted Differential Comment Atypical Lymphocytes Specimen Type Sample Site pH Bicarbonate Actual POC Total CO2 Base Excess O2 Saturation O2 % ABG pCO2 ABG pO2 Jorge Luis Test O2 Delivery Device Vent Mode POC PEEP POC Pressure Suppt EPAP IPAP Blood Gas Notified Whom Blood Gas Notified Time Sodium Potassium Chloride Carbon Dioxide Anion Gap BUN Creatinine Estim Creat Clear Calc Est GFR (MDRD) Af Amer Est GFR (MDRD) Non-Af BUN/Creatinine Ratio Glucose Calcium Troponin I POC Glucose 171 H 112 H 125 H 11/19/17 06:06 WBC RBC Hgb Hct MCV MCH MCHC RDW RDW Differential Plt Count MPV Immature Gran % (Auto) Neut % (Auto) Lymph % (Auto) [place] % (Auto) Eos % (Auto) Baso % (Auto) Absolute Neuts (auto) Absolute Lymphs (auto) Total Counted Differential Comment Atypical Lymphocytes Specimen Type Sample Site pH Bicarbonate Actual POC Total CO2 Base Excess O2 Saturation O2 % ABG pCO2 ABG pO2 Jorge Luis Test O2 Delivery Device Vent Mode POC PEEP POC Pressure Suppt EPAP IPAP Blood Gas Notified Whom Blood Gas Notified Time Sodium Potassium Chloride Carbon Dioxide Anion Gap BUN Creatinine Estim Creat Clear Calc Est GFR (MDRD) Af Amer Est GFR (MDRD) Non-Af BUN/Creatinine Ratio Glucose Calcium Troponin I POC Glucose 132 H Microbiology 11/16/17 20:30 Sputum, Expectorated/Coughed Gram Stain - Final 11/16/17 20:30 Sputum, Expectorated/Coughed Respiratory Culture - Preliminary GNR Possible Haemophilus sp. 11/17/17 12:45 Urine Catheter - Ravi Streptococcus pneumoniae Antigen (M - Final 11/17/17 12:45 Urine, Random Legionella Antigen - Final 11/16/17 20:09 Mucosa - Nasopharyngeal Respiratory Panel (PCR) - Final Rhinovirus Medical Necessity - Tobacco Use Smoking Status: Current every day smoker Tobacco Use: Cigarettes Assessment/Plan All Active Problems Acute respiratory failure with hypoxemia (Acute) COPD with acute exacerbation (Acute) Fall (Acute) Alcohol abuse (Acute) RECOMMENDATIONS: 1. Transition to p.o. steroids and wean over 12-14 days 2. Continue bronchodilators, steroids and mucolytic's 3. Consider transition to p.o. antibiotics 4. Walking oximetry prior to discharge 5. Okay to leave the intensive care unit in my perspective IMPRESSIONS: 1. Acute hypoxemic and hypercarbic respiratory failure presumed secondary to COPD with exacerbation secondary to rhinovirus and H. influenzae. CTA of the chest did not show any pulmonary emboli. Patient does have advanced emphysematous changes noted. No focal infiltrates can be noted, but patient has grown Haemophilus from the sputum. Patient has been on antibiotics. Clinical suspicion for a superinfection following rhinovirus. Patient's mentation has been at baseline. Oxygenation has not been an issue. Wean oxygen as tolerated. Patient will need a walking oximetry prior to discharge. Hemodynamically stable over the last 24 hours and likely can go to the [facility] floor from my perspective. 2. Sepsis secondary to suspected tracheobronchitis Patient sputum culture is showing no growth to date. Patient does have advanced emphysematous changes that make infiltrate difficult to assess, but CT scan of the chest does not show any infiltrate. Fever curve continues to improve. Patient likely needs to be treated for 5-7 days. Okay to transition to p.o. antibiotics from my perspective. 3. Acute kidney injury RESOLVED > likely prerenal in etiology, as the patient's creatinine responded to supplemental IV fluid hydration. Urine output is currently appropriate. No indication for renal replacement therapy. 4. Troponin elevation RESOLVED > likely secondary to demand ischemia in the setting of #1 and # 2. Surface echocardiogram is currently pending. 5. Hypertension/anxiety/GERD Complicates care, management, recovery and prognosis. Code Visit Inpatient E&M: 63375 [facility] Hosp L3
--- NOTE | 2017-11-19 09:16 | PCM.PN.HOSP ---
Patient Problems: Active and Suspected Problems Acute respiratory failure with hypoxemia (Acute) Subjective: Patient seen and examined. She remains on 2 L of oxygen. She has a cough which is nonproductive. She denies any fever or chills, shortness of breath is improved, any chest pain, any abdominal pain, any diarrhea vomiting. 12 point Review of systems is otherwise negative. Labs and vitals reviewed. Vitals/I&O's: Vital Signs Temp Pulse Resp BP Pulse Ox 97.6 F L 66 15 143/86 H 96 11/19/17 08:30 11/19/17 08:30 11/19/17 08:30 11/19/17 08:30 11/19/17 08:30 Oxygen Flow Rate (L/min) 2 Oxygen Delivery Method Nasal Cannula Weight: 127 lb 6.835 oz Body Mass Index (BMI) 18.6 Intake and Output for Last 24 Hours 11/17/17 11/18/17 11/19/17 23:59 23:59 23:59 Intake Total 3810.2 / 3810.2 2022.6 / 2022.6 360 / 360 Output Total 800 / 800 950 / 950 560 / 560 Balance 3010.2 / 3010.2 1072.6 / 1072.6 -200 / -200 General: Alert, Oriented x3, Cooperative, No apparent distress HEENT: Atraumatic, PERRLA, EOMI, Normocephalic Oral: Moist Mucosa Neck: Supple, No JVD, Negative Carotid Bruits Lungs: Clear to auscultation, Normal air movement, No rhonchi, No wheeze, No rales, - - on 2L of oxygen by nasal canula Cardiovascular: Regular rate, Regular Rhythm, Normal S1, Normal S2, No murmurs Abdomen: Bowel Sounds Present, Soft, Non Tender, Non-Distended, No Hepato-splenomegaly Extremities: No clubbing, No cyanosis, No edema, Capillary Refill Less than 3 Seconds Skin: No rashes, No breakdown Musculoskeletal: No Tenderness to Palpation of Joints or Extremities Lymphatic: No Cervical, Supraclavicular, or Inguinal Adenopathy Neurological: Cranial nerves II-XII grossly intact, Motor Exam 5/5 strength throughout Psych/Mental Status: Normal Affect, Appropriate, Alert and oriented to time, place, person, mood and affect Microbiology Past 72 Hours 11/16/17 20:30 Sputum, Expectorated/Coughed Gram Stain - Final 11/16/17 20:30 Sputum, Expectorated/Coughed Respiratory Culture - Preliminary GNR Possible Haemophilus sp. 11/17/17 12:45 Urine Catheter - Ravi Streptococcus pneumoniae Antigen (M - Final 11/17/17 12:45 Urine, Random Legionella Antigen - Final 11/16/17 20:09 Mucosa - Nasopharyngeal Respiratory Panel (PCR) - Final Rhinovirus 11/16/17 20:09 Mucosa - Nasopharyngeal Influenza Types A,B Direct FA (ANT) - Final Laboratory Results 11/18/17 11:51: POC Glucose 171 H 11/18/17 16:40: POC Glucose 112 H 11/18/17 21:23: POC Glucose 125 H 11/19/17 06:06: POC Glucose 132 H Current Medications Albuterol Sulfate (Ventolin Aerosols) 2.5 mg INHALATION Q2H PRN PRN PRN Reason: SHORTNESS OF BREATH Albuterol/Ipratropium (Duoneb) 3 ml INHALATION Q4H.RT [facility] Last Admin: 11/19/17 07:13 Dose: 3 ml Aspirin (Aspirin, Baby) 81 mg PO DAILY@0800 [facility] Enoxaparin Sodium (Lovenox) 40 mg SC DAILY@1000 [facility] Last Admin: 11/18/17 10:38 Dose: 40 mg Fluoxetine HCl (Prozac) 40 mg PO DAILY [facility] Azithromycin 500 mg/ Dextrose 255 mls @ 250 mls/hr IV Q24 [facility] Last Admin: 11/18/17 10:56 Dose: 250 mls/hr Sodium Chloride () 250 mls @ 15 mls/hr IV .[id number] PRN PRN Reason: SALINE FLUSH Last Admin: 11/18/17 06:53 Dose: 15 mls/hr Ceftriaxone Sodium (Rocephin) 1 gm in 50 mls @ 100 mls/hr IV Q12 [facility] Last Admin: 11/18/17 21:26 Dose: 100 mls/hr Insulin Human Lispro (Humalog Kwikpen (Bkc)) 0 unit SC ACHS [facility] PRN Reason: Protocol Last Admin: 11/19/17 07:44 Dose: Not Given Pantoprazole Sodium (Protonix) 40 mg PO DAILY [facility] Prednisone () 40 mg PO DAILY@0800 [facility] Propranolol HCl (Inderal) 10 mg PO DAILY [facility] Last Admin: 11/18/17 11:57 Dose: 10 mg Sodium Chloride () 5 - 30 ml IV UD PRN PRN Reason: SALINE FLUSH Last Admin: 11/19/17 06:08 Dose: 10 ml Medical Necessity - Tobacco Use Smoking Status: Current every day smoker Tobacco Use: Cigarettes Assessment/Plan All Active Problems Acute respiratory failure with hypoxemia (Acute) COPD with acute exacerbation (Acute) Fall (Acute) Alcohol abuse (Acute) 57-year-old patient admitted with a complaint of 4 day history of shortness of breath and worsening cough productive of greenish yellow sputum. 1. Acute hypoxic and hypercapnic respiratory failure due to COPD exacerbation and pneumonia Successfully extubated 1 day ago on 2L of oxygen on IV ceftriaxone and azithromycin; will switch to oral antibiotics tomorrow blood cultures pending still on IV solu-medrol; will switch to PO prednisone today breathing treatments 2. ?community acquired pneumonia admitted with leucocytosis and history of fever and productive cough. had a low grade fever which has resolved on IV ceftriaxone and azithromycin; Chest x-ray and chest CT however showed no evidence of pneumonia. Will switch to oral antibiotics 3. COPD exacerbation as documented under 1. breathing treatments, IV solumedrol, pulmonology on board 4. Elevated troponins 0.025->0.171->0.065 likely due to LEOBARDO EKG showed no acute ST changes 2D echo: EF of 65%, with normal size and thickness, no regional wall motion abnormalities. RVSp is 38mmHg. Mild TR insufficiency 5. Hypertension BP elevated on admission likely due to agitation from hypoxia BP has remained in 130s-140s systolic will resume propranolol 7. GERD: PPI DVT prophylaxis: Lovenox CODE STATUS: FULL CODE. Disposition: transfer to U today This note was generated with [email or web address] dictation software. It may contain incorrect words, spelling, and punctuation that were not noted in checking the note before signing. Code Visit Inpatient E&M: 21640 [facility] Hosp L3
--- NOTE | 2017-11-19 09:23 | PN_ITS ---
Patient Problems: Active and Suspected Problems Acute respiratory failure with hypoxemia (Acute) Subjective: Patient seen and examined. She remains on 2 L of oxygen. She has a cough which is nonproductive. She denies any fever or chills, shortness of breath is improved, any chest pain, any abdominal pain, any diarrhea vomiting. 12 point Review of systems is otherwise negative. Labs and vitals reviewed. Vitals/I&O's: Vital Signs Temp Pulse Resp BP Pulse Ox 97.6 F L 66 15 143/86 H 96 11/19/17 08:30 11/19/17 08:30 11/19/17 08:30 11/19/17 08:30 11/19/17 08:30 Oxygen Flow Rate (L/min) 2 Oxygen Delivery Method Nasal Cannula Weight: 127 lb 6.835 oz Body Mass Index (BMI) 18.6 Intake and Output for Last 24 Hours 11/17/17 11/18/17 11/19/17 23:59 23:59 23:59 Intake Total 3810.2 / 3810.2 2022.6 / 2022.6 360 / 360 Output Total 800 / 800 950 / 950 560 / 560 Balance 3010.2 / 3010.2 1072.6 / 1072.6 -200 / -200 General: Alert, Oriented x3, Cooperative, No apparent distress HEENT: Atraumatic, PERRLA, EOMI, Normocephalic Oral: Moist Mucosa Neck: Supple, No JVD, Negative Carotid Bruits Lungs: Clear to auscultation, Normal air movement, No rhonchi, No wheeze, No rales, - - on 2L of oxygen by nasal canula Cardiovascular: Regular rate, Regular Rhythm, Normal S1, Normal S2, No murmurs Abdomen: Bowel Sounds Present, Soft, Non Tender, Non-Distended, No Hepato- splenomegaly Extremities: No clubbing, No cyanosis, No edema, Capillary Refill Less than 3 Seconds Skin: No rashes, No breakdown Musculoskeletal: No Tenderness to Palpation of Joints or Extremities Lymphatic: No Cervical, Supraclavicular, or Inguinal Adenopathy Neurological: Cranial nerves II-XII grossly intact, Motor Exam 5/5 strength throughout Psych/Mental Status: Normal Affect, Appropriate, Alert and oriented to time, place, person, mood and affect Microbiology Past 72 Hours 11/16/17 20:30 Sputum, Expectorated/Coughed Gram Stain - Final 11/16/17 20:30 Sputum, Expectorated/Coughed Respiratory Culture - Preliminary GNR Possible Haemophilus sp. 11/17/17 12:45 Urine Catheter - Ravi Streptococcus pneumoniae Antigen (M - Final 11/17/17 12:45 Urine, Random Legionella Antigen - Final 11/16/17 20:09 Mucosa - Nasopharyngeal Respiratory Panel (PCR) - Final Rhinovirus 11/16/17 20:09 Mucosa - Nasopharyngeal Influenza Types A,B Direct FA (ANT) - Final Laboratory Results 11/18/17 11:51: POC Glucose 171 H 11/18/17 16:40: POC Glucose 112 H 11/18/17 21:23: POC Glucose 125 H 11/19/17 06:06: POC Glucose 132 H Current Medications Albuterol Sulfate (Ventolin Aerosols) 2.5 mg INHALATION Q2H PRN PRN PRN Reason: SHORTNESS OF BREATH Albuterol/Ipratropium (Duoneb) 3 ml INHALATION Q4H.RT [facility] Last Admin: 11/19/17 07:13 Dose: 3 ml Aspirin (Aspirin, Baby) 81 mg PO DAILY@0800 [facility] Enoxaparin Sodium (Lovenox) 40 mg SC DAILY@1000 [facility] Last Admin: 11/18/17 10:38 Dose: 40 mg Fluoxetine HCl (Prozac) 40 mg PO DAILY [facility] Azithromycin 500 mg/ Dextrose 255 mls @ 250 mls/hr IV Q24 [facility] Last Admin: 11/18/17 10:56 Dose: 250 mls/hr Sodium Chloride () 250 mls @ 15 mls/hr IV .[id number] PRN PRN Reason: SALINE FLUSH Last Admin: 11/18/17 06:53 Dose: 15 mls/hr Ceftriaxone Sodium (Rocephin) 1 gm in 50 mls @ 100 mls/hr IV Q12 [facility] Last Admin: 11/18/17 21:26 Dose: 100 mls/hr Insulin Human Lispro (Humalog Kwikpen (Bkc)) 0 unit SC ACHS [facility] PRN Reason: Protocol Last Admin: 11/19/17 07:44 Dose: Not Given Pantoprazole Sodium (Protonix) 40 mg PO DAILY [facility] Prednisone () 40 mg PO DAILY@0800 [facility] Propranolol HCl (Inderal) 10 mg PO DAILY [facility] Last Admin: 11/18/17 11:57 Dose: 10 mg Sodium Chloride () 5 - 30 ml IV UD PRN PRN Reason: SALINE FLUSH Last Admin: 11/19/17 06:08 Dose: 10 ml Medical Necessity - Tobacco Use Smoking Status: Current every day smoker Tobacco Use: Cigarettes Assessment/Plan All Active Problems Acute respiratory failure with hypoxemia (Acute) COPD with acute exacerbation (Acute) Fall (Acute) Alcohol abuse (Acute) 57-year-old patient admitted with a complaint of 4 day history of shortness of breath and worsening cough productive of greenish yellow sputum. 1. Acute hypoxic and hypercapnic respiratory failure due to COPD exacerbation and pneumonia * Successfully extubated 1 day ago * on 2L of oxygen * on IV ceftriaxone and azithromycin; will switch to oral antibiotics tomorrow * blood cultures pending * still on IV solu-medrol; will switch to PO prednisone today * breathing treatments * * 2. ?community acquired pneumonia * admitted with leucocytosis and history of fever and productive cough. * had a low grade fever which has resolved * on IV ceftriaxone and azithromycin; * Chest x-ray and chest CT however showed no evidence of pneumonia. * Will switch to oral antibiotics * 3. COPD exacerbation * as documented under 1. * breathing treatments, IV solumedrol, * pulmonology on board * 4. Elevated troponins * 0.025->0.171->0.065 * likely due to LEOBARDO * EKG showed no acute ST changes * 2D echo: EF of 65%, with normal size and thickness, no regional wall motion abnormalities. RVSp is 38mmHg. Mild TR insufficiency * 5. Hypertension * BP elevated on admission likely due to agitation from hypoxia * BP has remained in 130s-140s systolic * will resume propranolol * 7. GERD: PPI DVT prophylaxis: Lovenox CODE STATUS: FULL CODE. Disposition: transfer to [facility] today This note was generated with [employer] dictation software. It may contain incorrect words, spelling, and punctuation that were not noted in checking the note before signing. * * Code Visit Inpatient E&M: 99285 Subs Hosp L3
[2017-11-19] MEDS: Aspirin 81 MG TAB.CHEW PO (09:29)
[2017-11-19] MEDS: Pantoprazole Sodium 40 MG Tablet PO (09:29)
[2017-11-19] MEDS: Propranolol 10 MG Tablet PO (09:30)
[2017-11-19] MEDS: Enoxaparin 40 MG/0.4 ML Syringe SC (09:30)
[2017-11-19] MEDS: FLUoxetine 20 MG Capsule 40 MG PO (09:30)
[2017-11-19] MEDS: predniSONE 20 MG Tablet 40 MG PO (09:32)
--- NOTE | 2017-11-19 11:02 | CASEMGMT ---
Addendum entered by Palomo Crenshaw 11/19/17 11:16: ELIN FERNÁNDEZ Note: email update to JOLENE Haro, oxygen script/face sheet for [facility] sent to [facility] via tube system for physician to complete after home oxygen testing is completed. Original Note: ELIN FERNÁNDEZ Note: Discussed possible need for home oxygen for pt on dc with pt and Dr. Gallagher. Home oxygen testing to be completed in am. Per Dr. Hernandez, nebulizer will also be needed on dc. Pt was agreeable to [employer] [facility] for DME supplies. Abilio WORTHINGTON BSN ACM
--- NOTE | 2017-11-19 11:27 | NURSING ---
pt and mother informed of transfer to ms room. pt up to wc and all belongings packed and with pt. up to wc and o2 on at 2l for transfer
[2017-11-19 12:10] LABS: Bedside Glucose 114 mg/dL (70-110)
[2017-11-19] MEDS: Cefdinir 300 MG Capsule PO ×2 (14:13→23:13)
--- NOTE | 2017-11-19 19:46 | NURSING ---
pt stated she hadn't had bowel movement in 4 days= requesting medication for bowels. Same ordered. later in shift this RN attempted to give patient MOM per order- pt refused and states she had a few bowel movements earlier today none were documented that this RN is aware of. Offered prune juice or different medication to help bowels- pt refused.
[2017-11-20] VITALS (12 sets, daily range): BP systolic 118–139; BP diastolic 80–92; PULSE 59–79; RESP 18–20; TEMP 36.8; O2SAT 86–95
[2017-11-20 07:25] LABS: Anion Gap 5 (5-15); BUN 18 mg/dL (7-18); BUN/Creat Ratio 35.2 RATIO (10-20); Calcium,Total 8.3 mg/dL (8.5-10.1); Chloride 99 mmol/L (98-107); Creatinine, Serum 0.51 mg/dL (0.55-1.02); EST Glomerular Filtration Rate 131 mL/min (>60); Est Glom Filt Rate - Afr Amer 159 mL/min (>60); Estimated Creatinine Clearance 111.05 ml/min; Glucose 86 mg/dL (74-106); Potassium 3.3 mmol/L (3.5-5.1); Sodium Level 141 mmol/L (136-145)
[2017-11-20 07:49] LABS: Absolute Lymphocyte Count 2.28 X10^3/ul (0.83-4.51); Absolute Neutrophil Count 12.3 X10^3/uL (2.0-7.7); Basophil# 0.07 X10^3/uL; Basophil% 0.4 % (0-1); Eosinophil# 0.01 X10^3/uL; Eosinophils% 0.1 % (0-5); Hematocrit 40.6 % (37-47); Hemoglobin 13.3 g/dl (12.0-15.0); Lymphocyte # 2.28 X10^3/ul (4.0); Mean Corp Hgb Conc 32.8 g/gl (32-36); Mean Corpuscular Hgb 31.5 pg (27.0-32.0); Mean Corpuscular Volume 96.2 fL (81-99); Mean Platelet Vol. 9.3 fl (6.2-12.0); Monocyte# 1.34 X10^3/uL; Monocyte% 8.2 % (0-10); Neutrophil # 12.31 X10^3/uL (2.7-7.7); Neutrophil % 75.3 % (47-70); Platelet Count 231 K/mm3 (150-450); RBC Distribution Width CV 13.2 % (11.6-14.6); RBC Distribution Width SD 44.9 fl (35.1-43.9); Red Blood Count 4.22 M/mm3 (4.2-5.4); White Blood Count 16.3 K/mm3 (4.4-11.0)
[2017-11-20 07:50] LABS: Differential Indicated SCAN CRITERIA MET; POSITIVE COUNT YES; POSITIVE DIFFERENTIAL NO; POSITIVE MORPHOLOGY YES
--- NOTE | 2017-11-20 08:03 | PCM.PN.INT ---
Subjective: Patient transferred out of the intensive care unit. No acute issues were reported overnight. Patient does report some frustration with still requiring supplemental oxygen. Productive cough has continued, but patient subjectively feels this is improving. General: Alert, Oriented x3, Cooperative, No apparent distress, - - Appears older than stated age. HEENT: Atraumatic, PERRLA, EOMI, Normocephalic, - - No scleral icterus or injection noted. Oral: Moist Mucosa, No Gingival or Mucosal Lesions/ Ulcerations, - - Fair dentition Neck: Supple, No JVD, No Nodes, Trachea Midline, Thyroid Normal Size and Texture Lungs: No rhonchi, No rales, Diminished, Wheezes - Sporadic at end exhalation, - - Symmetric expansion. No dullness to percussion. Cardiovascular: Regular rate, Regular Rhythm, Normal S1, Normal S2, No murmurs, No rub noted, No Gallop Abdomen: Bowel Sounds Present, Soft, Non Tender, Non-Distended Extremities: No cyanosis, No edema, Capillary Refill Less than 3 Seconds, Clubbing Skin: No rashes, No breakdown Musculoskeletal: No Tenderness to Palpation of Joints or Extremities Lymphatic: No Cervical, Supraclavicular, or Inguinal Adenopathy Neurological: Cranial nerves II-XII grossly intact, Neuro grossly intact, Motor Exam 5/5 strength throughout Psych/Mental Status: Alert and oriented to time, place, person, mood and affect Vital Signs Temp Pulse Resp BP Pulse Ox 36.8 C 79 19 H 139/92 H 94 11/20/17 02:00 11/20/17 05:58 11/20/17 02:00 11/20/17 02:00 11/20/17 02:00 Oxygen Flow Rate (L/min) [ 0 AMBULATING on Room Air] Oxygen Flow Rate (L/min) [At 0 REST on Room Air] Oxygen Flow Rate (L/min) 2 Oxygen Delivery Method Nasal Cannula Weight: 57.8 kg Body Mass Index (BMI) 18.6 Intake and Output for Last 24 Hours 11/18/17 11/19/17 11/20/17 23:59 23:59 23:59 Intake Total 2022.6 / 2022.6 860 / 860 340 / 340 Output Total 950 / 950 560 / 560 Balance 1072.6 / 1072.6 300 / 300 340 / 340 Labs (Last 48 Hours) 11/18/17 11/18/17 11/18/17 11:51 16:40 21:23 WBC RBC Hgb Hct MCV MCH MCHC RDW RDW Differential Plt Count MPV Immature Gran % (Auto) Neut % (Auto) Lymph % (Auto) [place] % (Auto) Eos % (Auto) Baso % (Auto) Absolute Neuts (auto) Absolute Lymphs (auto) Total Counted Sodium Potassium Chloride Carbon Dioxide Anion Gap BUN Creatinine Estim Creat Clear Calc Est GFR (MDRD) Af Amer Est GFR (MDRD) Non-Af BUN/Creatinine Ratio Glucose Calcium POC Glucose 171 H 112 H 125 H 11/19/17 11/19/17 11/20/17 06:06 12:05 06:54 WBC 16.3 H RBC 4.22 Hgb 13.3 Hct 40.6 MCV 96.2 MCH 31.5 MCHC 32.8 RDW 13.2 RDW Differential 44.9 H Plt Count 231 MPV 9.3 Immature Gran % (Auto) 2.000 H Neut % (Auto) 75.3 H Lymph % (Auto) 14.0 L [place] % (Auto) 8.2 Eos % (Auto) 0.1 Baso % (Auto) 0.4 Absolute Neuts (auto) 12.3 H Absolute Lymphs (auto) 2.28 Total Counted Pending Sodium Potassium Chloride Carbon Dioxide Anion Gap BUN Creatinine Estim Creat Clear Calc Est GFR (MDRD) Af Amer Est GFR (MDRD) Non-Af BUN/Creatinine Ratio Glucose Calcium POC Glucose 132 H 114 H 11/20/17 06:54 WBC RBC Hgb Hct MCV MCH MCHC RDW RDW Differential Plt Count MPV Immature Gran % (Auto) Neut % (Auto) Lymph % (Auto) [place] % (Auto) Eos % (Auto) Baso % (Auto) Absolute Neuts (auto) Absolute Lymphs (auto) Total Counted Sodium 141 Potassium 3.3 L Chloride 99 Carbon Dioxide 37.0 H Anion Gap 5 BUN 18 Creatinine 0.51 L Estim Creat Clear Calc 111.05 Est GFR (MDRD) Af Amer 159 Est GFR (MDRD) Non-Af 131 BUN/Creatinine Ratio 35.2 H Glucose 86 Calcium 8.3 L POC Glucose Microbiology 11/16/17 20:30 Sputum, Expectorated/Coughed Gram Stain - Final 11/16/17 20:30 Sputum, Expectorated/Coughed Respiratory Culture - Preliminary GNR Possible Haemophilus sp. Medical Necessity - Tobacco Use Smoking Status: Current every day smoker Tobacco Use: Cigarettes Assessment/Plan All Active Problems Acute respiratory failure with hypoxemia (Acute) COPD with acute exacerbation (Acute) Fall (Acute) Alcohol abuse (Acute) RECOMMENDATIONS: 1. Transition to p.o. steroids and wean over 12-14 days 2. Continue bronchodilators and mucolytic 3. Complete a seven-day course of antibiotics 4. Reattempt walking oximetry prior to discharge 5. Follow-up in our office 2 weeks after discharge with nurse practitioner IMPRESSIONS: 1. Acute hypoxemic and hypercarbic respiratory failure presumed secondary to COPD with exacerbation secondary to rhinovirus and H. influenzae. Patient appears to be responding well to current therapy. Patient is currently on p.o. prednisone and Omnicef. Okay to wean steroids over the next 12-14 days. Patient should complete a total of seven-day course of antibiotics. Patient is disappointed by the need for supplemental oxygen. Can attempt to repeat walking oximetry today, but clinical suspicion is that supplemental oxygen will be required on discharge. Patient can follow-up with us 2 weeks after discharge with nurse practitioner. PFTs and repeat walking oximetry can be ordered at that time. 2. Sepsis secondary to suspected tracheobronchitis Patient sputum culture is showing Haemophilus. Patient does have advanced emphysematous changes that make infiltrate difficult to assess, but CT scan of the chest does not show any infiltrate. 3. Acute kidney injury RESOLVED > likely prerenal in etiology, as the patient's creatinine responded to supplemental IV fluid hydration. Urine output is currently appropriate. No indication for renal replacement therapy. 4. Troponin elevation RESOLVED > likely secondary to demand ischemia in the setting of #1 and #2. Surface echocardiogram is currently pending. 5. Hypertension/anxiety/GERD/hypokalemia Complicates care, management, recovery and prognosis. Patient was given a single dose of p.o. potassium Code Visit Inpatient E&M: 08750 Subs Hosp L2
[2017-11-20] MEDS: Ipratropium/Albuterol Sulfate 3 ML AMPUL.NEB INHALATION (08:07)
[2017-11-20] MEDS: Aspirin 81 MG TAB.CHEW PO (08:34)
[2017-11-20] MEDS: predniSONE 20 MG Tablet 40 MG PO (08:34)
[2017-11-20] MEDS: Enoxaparin 40 MG/0.4 ML Syringe SC (09:49)
[2017-11-20] MEDS: FLUoxetine 20 MG Capsule 40 MG PO (09:49)
[2017-11-20] MEDS: Pantoprazole Sodium 40 MG Tablet PO (09:50)
[2017-11-20] MEDS: Cefdinir 300 MG Capsule PO (09:50)
[2017-11-20] MEDS: Propranolol 10 MG Tablet PO (11:20)
--- NOTE | 2017-11-20 11:49 | PCM.DC ---
- Discharge Diagnoses Current Active Problems: Current Active and Chronic Problems Acute respiratory failure with hypoxemia (Acute) You will use the following diet at home:: No restrictions Your food should be the consistency of: Regular Your liquids should be the consistency of: Regular/Thin Discharge Activity: Return to Normal Activity Weight Bearing Status: Weight bearing as tolerated Call your doctor if you observe: Shortness of breath, Chest pain Additional Instructions: use oxygen as needed for SOB Allergies/Adverse Reactions: Allergies Sulfa (Sulfonamide Antibiotics) Allergy (Verified 04/03/16 13:21) Other Medications to take at Discharge Fluoxetine [Prozac] 40 mg PO DAILY 02/09/14 Lansoprazole [Prevacid] 15 mg PO DAILY 02/09/14 Albuterol Inhaler [Ventolin Hfa] 1 puff INHALATION Q4H PRN PRN #1 inhaler 02/10/14 Fexofenadine HCl [Renetta Allergy] 60 mg PO DAILY 04/03/16 Guaifenesin [Mucinex] 40 mg PO DAILY 04/03/16 Meclizine HCl [Antivert] 25 mg PO BID PRN PRN 04/03/16 Fluticasone/Vilanterol [Breo Ellipta 100-25 Mcg INH] 1 puff INHALATION BID 11/16/17 Propranolol HCl 10 mg PO DAILY 11/16/17 Cefdinir [Omnicef [equiv]] 300 mg PO Q12 #6 cap 11/20/17 Ipratropium/Albuterol Sulfate [Duoneb] 3 ml INHALATION Q6H.RT #30 ampul.neb 11/20/17 MethylPREDNISolone DosePak [Medrol DosePak] 4 mg PO UD #1 box 11/20/17 The following prescriptions were given: Ipratropium/Albuterol Sulfate [Duoneb] 3 ml INHALATION Q6H.RT #30 ampul.neb Cefdinir [Omnicef [equiv]] 300 mg PO Q12 #6 cap MethylPREDNISolone DosePak [Medrol DosePak] 4 mg PO UD #1 box Primary Care Physician: Jose Carlos Lang MD [Primary Care Provider] - Please follow up with your Primary Care Physician in: one week Test Results: Test results from this visit will be discussed in further detail at your follow-up appointment, if applicable. Please Follow Up With: Grzegorz Gallagher MD When: 1-2 weeks
--- NOTE | 2017-11-20 11:50 | DS.PCM_ITS ---
Discharge Date and Diagnosis Date of Admission: 11/16/17 Date of Discharge: 11/20/17 - Primary Discharge Diagnosis Active and Suspected Problems Acute respiratory failure with hypoxemia (Acute) due to COPD exacerbation - Secondary Discharge Diagnosis Chronic Problems Tobacco dependence (Chronic) Hospital Course and Treatment Imaging Results: Diagnostic Data Chest X-Ray 11/16/17 20:25 IMPRESSION: Endotracheal tube and orogastric tube in grossly satisfactory positions. Hyperinflated lungs suggestive of underlying COPD. Electronically Signed: Yaima Jain MD at 21:48 EDT Tel , Service support , Chest CTA 11/17/17 06:43 Impressions Chest X-Ray 11/16/17 20:25 IMPRESSION: Endotracheal tube and orogastric tube in grossly satisfactory positions. Hyperinflated lungs suggestive of underlying COPD. Electronically Signed: Yaima Jain MD at 21:48 EDT Tel , Service support , Chest CTA 11/17/17 06:43 11/16/17 20:30 Sputum, Expectorated/Coughed Gram Stain - Final 11/16/17 20:30 Sputum, Expectorated/Coughed Respiratory Culture - Final Haemophilus influenzae 11/16/17 16:05 Blood Culture (Wb) #2 - Anticubital Right Blood Culture - Preliminary No growth in 48 hours. 11/16/17 16:10 Blood Culture (Wb) - Left Wrist Blood Culture - Preliminary No growth in 48 hours. 11/17/17 12:45 Urine Catheter - Ravi Streptococcus pneumoniae Antigen (M - Final 11/17/17 12:45 Urine, Random Legionella Antigen - Final 11/16/17 20:09 Mucosa - Nasopharyngeal Respiratory Panel (PCR) - Final Rhinovirus 11/16/17 20:09 Mucosa - Nasopharyngeal Influenza Types A,B Direct FA (ANT) - Final Laboratory Results 11/20/17 11/20/17 Range/Units 06:54 06:54 WBC 16.3 H (4.4-11.0) K/mm3 RBC 4.22 (4.2-5.4) M/mm3 Hgb 13.3 (12.0-15.0) g/dl Hct 40.6 (37-47) % MCV 96.2 (81-99) fL MCH 31.5 (27.0-32.0) pg MCHC 32.8 (32-36) g/gl RDW 13.2 (11.6-14.6) % RDW Differential 44.9 H (35.1-43.9) fl Plt Count 231 (150-450) K/mm3 MPV 9.3 (6.2-12.0) fl Immature Gran % (Auto) 2.000 H (0.0-0.9) % Neut % (Auto) 75.3 H (47-70) % Lymph % (Auto) 14.0 L (19-41) % Independence % (Auto) 8.2 (0-10) % Eos % (Auto) 0.1 (0-5) % Baso % (Auto) 0.4 (0-1) % Absolute Neuts (auto) 12.3 H (2.0-7.7) X10^3/uL Absolute Lymphs (auto) 2.28 (0.83-4.51) X10^3/ul Total Counted Not Reportable Differential Comment COMMENT Diff Path Review Reviewed Sodium 141 (136-145) mmol/L Potassium 3.3 L (3.5-5.1) mmol/L Chloride 99 (98-107) mmol/L Carbon Dioxide 37.0 H (21.0-32.0) mmol/L Anion Gap 5 (5-15) BUN 18 (7-18) mg/dL Creatinine 0.51 L (0.55-1.02) mg/dL Estim Creat Clear Calc 111.05 ml/min Est GFR (MDRD) Af Amer 159 (>60) mL/min Est GFR (MDRD) Non-Af 131 (>60) mL/min BUN/Creatinine Ratio 35.2 H (10-20) RATIO Glucose 86 (74-106) mg/dL Calcium 8.3 L (8.5-10.1) mg/dL Laboratory Tests 11/16/17 11/16/17 11/16/17 15:50 15:50 16:10 WBC 20.3 H RBC 5.59 H Hgb 17.6 H Hct 54.6 H MCV 97.7 MCH 31.5 MCHC 32.2 RDW 13.2 RDW Differential 47.1 H Plt Count 279 MPV 10.0 Immature Gran % (Auto) 0.400 Neut % (Auto) 80.7 H Lymph % (Auto) 10.2 L [place] % (Auto) 8.5 Eos % (Auto) 0.0 Baso % (Auto) 0.2 Absolute Neuts (auto) 16.4 H Absolute Lymphs (auto) 2.06 Total Counted Not Reportable Nucleated RBC % 0.1 Differential Comment SCANNED Diff Path Review Atypical Lymphocytes Absolute Retic 0.02 Specimen Type Sample Site pH Bicarbonate Actual POC Total CO2 Base Excess O2 Saturation O2 % ABG pCO2 ABG pO2 Jorge Luis Test Respiration Rate O2 Delivery Device Minute Volume Vent Mode Tidal Volume POC PEEP POC Pressure Suppt EPAP IPAP Blood Gas Notified Whom Blood Gas Notified Time Sodium 139 Potassium 5.1 Chloride 98 Carbon Dioxide 32.0 Anion Gap 9 BUN 44 H Creatinine 1.35 H Estim Creat Clear Calc 39.84 Est GFR (MDRD) Af Amer 52 L Est GFR (MDRD) Non-Af 43 L BUN/Creatinine Ratio 32.6 H Glucose 172 H Lactic Acid 2.2 H Calcium 9.7 Magnesium Total Creatine Kinase Troponin I 0.228 H Triglycerides Cholesterol LDL Cholesterol VLDL Cholesterol HDL Cholesterol MRSA (PCR) POC Glucose 11/16/17 11/16/17 11/16/17 17:06 18:05 18:27 WBC RBC Hgb Hct MCV MCH MCHC RDW RDW Differential Plt Count MPV Immature Gran % (Auto) Neut % (Auto) Lymph % (Auto) Independence % (Auto) Eos % (Auto) Baso % (Auto) Absolute Neuts (auto) Absolute Lymphs (auto) Total Counted Nucleated RBC % Differential Comment Diff Path Review Atypical Lymphocytes Absolute Retic Specimen Type ART BYRON ART Sample Site R Radial R RADIAL L Brachial pH 7.16 L* 7.22 L 7.21 L Bicarbonate Actual 35.1 H 32.8 H 33.2 H POC Total CO2 38 35 36 Base Excess 6 H 5 H 5 H O2 Saturation 93 L 80 L 92 L O2 % 50 45 45 ABG pCO2 97.4 H* 80.6 H* 82.8 H* ABG pO2 90 56 L 82 Jorge Luis Test POS POS NA Respiration Rate O2 Delivery Device Vent Mask Bi Pap Bi / C PAP Minute Volume Vent Mode Tidal Volume POC PEEP POC Pressure Suppt EPAP 6 6 IPAP 12 12 Blood Gas Notified Whom ED MD ED MD ED MD Blood Gas Notified Time 1706 1805 1820 Sodium Potassium Chloride Carbon Dioxide Anion Gap BUN Creatinine Estim Creat Clear Calc Est GFR (MDRD) Af Amer Est GFR (MDRD) Non-Af BUN/Creatinine Ratio Glucose Lactic Acid Calcium Magnesium Total Creatine Kinase Troponin I Triglycerides Cholesterol LDL Cholesterol VLDL Cholesterol HDL Cholesterol MRSA (PCR) POC Glucose 11/16/17 11/16/17 11/16/17 19:20 19:20 20:00 WBC RBC Hgb Hct MCV MCH MCHC RDW RDW Differential Plt Count MPV Immature Gran % (Auto) Neut % (Auto) Lymph % (Auto) Independence % (Auto) Eos % (Auto) Baso % (Auto) Absolute Neuts (auto) Absolute Lymphs (auto) Total Counted Nucleated RBC % Differential Comment Diff Path Review Atypical Lymphocytes Absolute Retic Specimen Type Sample Site pH Bicarbonate Actual POC Total CO2 Base Excess O2 Saturation O2 % ABG pCO2 ABG pO2 Jorge Luis Test Respiration Rate O2 Delivery Device Minute Volume Vent Mode Tidal Volume POC PEEP POC Pressure Suppt EPAP IPAP Blood Gas Notified Whom Blood Gas Notified Time Sodium Potassium Chloride Carbon Dioxide Anion Gap BUN Creatinine Estim Creat Clear Calc Est GFR (MDRD) Af Amer Est GFR (MDRD) Non-Af BUN/Creatinine Ratio Glucose Lactic Acid Calcium Magnesium 2.7 H Total Creatine Kinase Troponin I 0.171 H Triglycerides Cholesterol LDL Cholesterol VLDL Cholesterol HDL Cholesterol MRSA (PCR) Negative POC Glucose 11/16/17 11/16/17 11/16/17 20:55 21:40 23:32 WBC RBC Hgb Hct MCV MCH MCHC RDW RDW Differential Plt Count MPV Immature Gran % (Auto) Neut % (Auto) Lymph % (Auto) Independence % (Auto) Eos % (Auto) Baso % (Auto) Absolute Neuts (auto) Absolute Lymphs (auto) Total Counted Nucleated RBC % Differential Comment Diff Path Review Atypical Lymphocytes Absolute Retic Specimen Type ART ART Sample Site R Radial R Radial pH 7.27 L 7.40 Bicarbonate Actual 32.6 H 31.5 H POC Total CO2 35 33 Base Excess 6 H 7 H O2 Saturation 100 H 99 O2 % 100 40 ABG pCO2 70.8 H* 51.0 H ABG pO2 541 H* 138 H Jorge Luis Test Respiration Rate 16 16 O2 Delivery Device Vent Vent Minute Volume 8.00 8.00 Vent Mode A-C A-C Tidal Volume 450 450 POC PEEP 5 5 POC Pressure Suppt EPAP IPAP Blood Gas Notified Whom HOSP MD HOSP MD Blood Gas Notified Time 20495 Sodium Potassium Chloride Carbon Dioxide Anion Gap BUN Creatinine Estim Creat Clear Calc Est GFR (MDRD) Af Amer Est GFR (MDRD) Non-Af BUN/Creatinine Ratio Glucose Lactic Acid 3.1 H Calcium Magnesium Total Creatine Kinase Troponin I Triglycerides Cholesterol LDL Cholesterol VLDL Cholesterol HDL Cholesterol MRSA (PCR) POC Glucose 11/17/17 11/17/17 11/17/17 03:45 03:45 03:45 WBC 15.3 H RBC 4.82 Hgb 14.9 Hct 46.2 MCV 95.9 MCH 30.9 MCHC 32.3 RDW 13.2 RDW Differential 46.1 H Plt Count 213 MPV 10.0 Immature Gran % (Auto) 0.400 Neut % (Auto) 84.3 H Lymph % (Auto) 10.8 L Independence % (Auto) 4.2 Eos % (Auto) 0.0 Baso % (Auto) 0.3 Absolute Neuts (auto) 12.9 H Absolute Lymphs (auto) 1.65 Total Counted Not Reportable Nucleated RBC % Differential Comment Diff Path Review Atypical Lymphocytes Absolute Retic Specimen Type Sample Site pH Bicarbonate Actual POC Total CO2 Base Excess O2 Saturation O2 % ABG pCO2 ABG pO2 Jorge Luis Test Respiration Rate O2 Delivery Device Minute Volume Vent Mode Tidal Volume POC PEEP POC Pressure Suppt EPAP IPAP Blood Gas Notified Whom Blood Gas Notified Time Sodium 143 Potassium 4.2 Chloride 104 Carbon Dioxide 30.0 Anion Gap 9 BUN 33 H Creatinine 0.76 Estim Creat Clear Calc 69.23 Est GFR (MDRD) Af Amer 101 Est GFR (MDRD) Non-Af 84 BUN/Creatinine Ratio 43.6 H Glucose 140 H Lactic Acid Calcium 8.5 Magnesium Total Creatine Kinase 67 Troponin I Triglycerides 139 141 Cholesterol 138 LDL Cholesterol 81 VLDL Cholesterol 28 HDL Cholesterol 29 L MRSA (PCR) POC Glucose 11/17/17 11/17/17 11/17/17 12:35 18:20 Unknown WBC RBC Hgb Hct MCV MCH MCHC RDW RDW Differential Plt Count MPV Immature Gran % (Auto) Neut % (Auto) Lymph % (Auto) Independence % (Auto) Eos % (Auto) Baso % (Auto) Absolute Neuts (auto) Absolute Lymphs (auto) Total Counted Nucleated RBC % Differential Comment Diff Path Review Atypical Lymphocytes Absolute Retic Specimen Type Sample Site pH Bicarbonate Actual POC Total CO2 Base Excess O2 Saturation O2 % ABG pCO2 ABG pO2 Jorge Luis Test Respiration Rate O2 Delivery Device Minute Volume Vent Mode Tidal Volume POC PEEP POC Pressure Suppt EPAP IPAP Blood Gas Notified Whom Blood Gas Notified Time Sodium Potassium Chloride Carbon Dioxide Anion Gap BUN Creatinine Estim Creat Clear Calc Est GFR (MDRD) Af Amer Est GFR (MDRD) Non-Af BUN/Creatinine Ratio Glucose Lactic Acid Calcium Magnesium Total Creatine Kinase Troponin I 0.065 H Triglycerides Cholesterol LDL Cholesterol VLDL Cholesterol HDL Cholesterol MRSA (PCR) POC Glucose 128 H 175 H 11/18/17 11/18/17 11/18/17 00:10 04:45 04:45 WBC 18.0 H RBC 4.54 Hgb 13.8 Hct 43.2 MCV 95.2 MCH 30.4 MCHC 31.9 L RDW 13.2 RDW Differential 45.8 H Plt Count 212 MPV 9.8 Immature Gran % (Auto) 1.300 H Neut % (Auto) 85.3 H Lymph % (Auto) 7.6 L Independence % (Auto) 5.6 Eos % (Auto) 0.0 Baso % (Auto) 0.2 Absolute Neuts (auto) 15.4 H Absolute Lymphs (auto) 1.38 Total Counted Not Reportable Nucleated RBC % Differential Comment SCANNED Diff Path Review Atypical Lymphocytes RARE Absolute Retic Specimen Type Sample Site pH Bicarbonate Actual POC Total CO2 Base Excess O2 Saturation O2 % ABG pCO2 ABG pO2 Jorge Luis Test Respiration Rate O2 Delivery Device Minute Volume Vent Mode Tidal Volume POC PEEP POC Pressure Suppt EPAP IPAP Blood Gas Notified Whom Blood Gas Notified Time Sodium 143 Potassium 3.8 Chloride 104 Carbon Dioxide 31.0 Anion Gap 8 BUN 32 H Creatinine 0.73 Estim Creat Clear Calc 74.90 Est GFR (MDRD) Af Amer 106 Est GFR (MDRD) Non-Af 88 BUN/Creatinine Ratio 44.0 H Glucose 157 H Lactic Acid Calcium 8.5 Magnesium Total Creatine Kinase Troponin I Triglycerides Cholesterol LDL Cholesterol VLDL Cholesterol HDL Cholesterol MRSA (PCR) POC Glucose 189 H 11/18/17 11/18/17 11/18/17 06:05 06:45 11:51 WBC RBC Hgb Hct MCV MCH MCHC RDW RDW Differential Plt Count MPV Immature Gran % (Auto) Neut % (Auto) Lymph % (Auto) Independence % (Auto) Eos % (Auto) Baso % (Auto) Absolute Neuts (auto) Absolute Lymphs (auto) Total Counted Nucleated RBC % Differential Comment Diff Path Review Atypical Lymphocytes Absolute Retic Specimen Type ART Sample Site R Radial pH 7.44 Bicarbonate Actual 33.1 H POC Total CO2 35 Base Excess 9 H O2 Saturation 94 L O2 % 30 ABG pCO2 48.9 H ABG pO2 69 L Jorge Luis Test POS Respiration Rate O2 Delivery Device Vent Minute Volume Vent Mode CPAP PS Tidal Volume POC PEEP 5 POC Pressure Suppt 5 EPAP IPAP Blood Gas Notified Whom ICU MD Blood Gas Notified Time 600 Sodium Potassium Chloride Carbon Dioxide Anion Gap BUN Creatinine Estim Creat Clear Calc Est GFR (MDRD) Af Amer Est GFR (MDRD) Non-Af BUN/Creatinine Ratio Glucose Lactic Acid Calcium Magnesium Total Creatine Kinase Troponin I Triglycerides Cholesterol LDL Cholesterol VLDL Cholesterol HDL Cholesterol MRSA (PCR) POC Glucose 166 H 171 H 11/18/17 11/18/17 11/19/17 16:40 21:23 06:06 WBC RBC Hgb Hct MCV MCH MCHC RDW RDW Differential Plt Count MPV Immature Gran % (Auto) Neut % (Auto) Lymph % (Auto) Independence % (Auto) Eos % (Auto) Baso % (Auto) Absolute Neuts (auto) Absolute Lymphs (auto) Total Counted Nucleated RBC % Differential Comment Diff Path Review Atypical Lymphocytes Absolute Retic Specimen Type Sample Site pH Bicarbonate Actual POC Total CO2 Base Excess O2 Saturation O2 % ABG pCO2 ABG pO2 Jorge Luis Test Respiration Rate O2 Delivery Device Minute Volume Vent Mode Tidal Volume POC PEEP POC Pressure Suppt EPAP IPAP Blood Gas Notified Whom Blood Gas Notified Time Sodium Potassium Chloride Carbon Dioxide Anion Gap BUN Creatinine Estim Creat Clear Calc Est GFR (MDRD) Af Amer Est GFR (MDRD) Non-Af BUN/Creatinine Ratio Glucose Lactic Acid Calcium Magnesium Total Creatine Kinase Troponin I Triglycerides Cholesterol LDL Cholesterol VLDL Cholesterol HDL Cholesterol MRSA (PCR) POC Glucose 112 H 125 H 132 H 11/19/17 11/20/17 11/20/17 12:05 06:54 06:54 WBC 16.3 H RBC 4.22 Hgb 13.3 Hct 40.6 MCV 96.2 MCH 31.5 MCHC 32.8 RDW 13.2 RDW Differential 44.9 H Plt Count 231 MPV 9.3 Immature Gran % (Auto) 2.000 H Neut % (Auto) 75.3 H Lymph % (Auto) 14.0 L [place] % (Auto) 8.2 Eos % (Auto) 0.1 Baso % (Auto) 0.4 Absolute Neuts (auto) 12.3 H Absolute Lymphs (auto) 2.28 Total Counted Not Reportable Nucleated RBC % Differential Comment COMMENT Diff Path Review Reviewed Atypical Lymphocytes Absolute Retic Specimen Type Sample Site pH Bicarbonate Actual POC Total CO2 Base Excess O2 Saturation O2 % ABG pCO2 ABG pO2 Jorge Luis Test Respiration Rate O2 Delivery Device Minute Volume Vent Mode Tidal Volume POC PEEP POC Pressure Suppt EPAP IPAP Blood Gas Notified Whom Blood Gas Notified Time Sodium 141 Potassium 3.3 L Chloride 99 Carbon Dioxide 37.0 H Anion Gap 5 BUN 18 Creatinine 0.51 L Estim Creat Clear Calc 111.05 Est GFR (MDRD) Af Amer 159 Est GFR (MDRD) Non-Af 131 BUN/Creatinine Ratio 35.2 H Glucose 86 Lactic Acid Calcium 8.3 L Magnesium Total Creatine Kinase Troponin I Triglycerides Cholesterol LDL Cholesterol VLDL Cholesterol HDL Cholesterol MRSA (PCR) POC Glucose 114 H Operations: None Procedures: 2-D Echocardiogram, Central line placement Summary of Care Provided: The patient is a 57 year old F with a PMH of COPD, not on home oxygen, hypertension and GERD. She was admitted by the ED on 11/16/2017 with a complaint of shortness of breath for the past 4 days prior to admission. Patient was initially taken from patient's mother as patient was quite confused and lethargic. Mother stated that patient have progressively gotten short of breath over the past 4 days before she came in with a cough productive of greenish yellowish sputum and associated chills and pleuritic chest pain. She had initially refused come to the hospital but finally came up to her mother made her. She had associated wheezing and also had a fever. She smokes about 1 pack daily was continuing to smoke throughout this episode. On arrival in the ED she was found to be saturating in the 50s and so was immediately placed on oxygen and respiratory rate was in the high 20s and 30s, she was also tachycardic with heart rate being 101 and temperature was 98.2 Fahrenheit. Oxygen had to be increased to 15 L by nonrebreather mask at which point she was saturating at 100% but was breathing at 28/min. Labs done showed white cell count of 20,000 and hemoglobin was 17.6. Initial troponin was 0.228 and EKG showed only sinus tachycardia with no acute ST changes. Potassium was 5.1 and chest x-ray done showed emphysematous changes bilaterally with biapical scarring and bilateral subsegmental atelectasis. She was admitted and managed for acute hypoxic and hypercapnic respiratory failure and sepsis due to community-acquired pneumonia and COPD exacerbation. She was started on IV ceftriaxone and azithromycin and admitted to the ICU. Patient was placed on BiPAP but could not tolerate it and had to end up being intubated in the ED before been admitted to the ICU. Cart[employer] Forming Machine Operator consult was placed. Patient was successfully extubated on 11/18/2017. A chest CT subsequently done showed no evidence of a PE or pneumonia. IV antibiotics was subsequently switched to oral cefdinir. Patient remained stable, and was saturating well on 2 L of oxygen after extubation. With ambulation saturation dropped to 86% and so she qualify for home oxygen. Patient was discharged home on 11/20/2017 with a prescription for p.o. Cefdinir for 3 more days and tapering dose of Medrol Dosepak. She is to follow-up with her primary care doctor and transport operations inspector. She is also discharged home on 2 L of home oxygen. Patient seen and examined prior to discharge. She had no complaints and felt well. She was lying in bed comfortably at breathing comfortably on 2 L of oxygen. She denied any cough or chest pain, any shortness of breath, any fever or chills, any abdominal pain, any diarrhea vomiting. Review of systems was otherwise negative. On examination: Vital Signs Height 5 ft 6.93 in Weight: 127 lb 6.835 oz Weight in Pounds 127.4 lbs Pulse Ox [AMBULATION with 90 Oxygen] Pulse Ox [AMBULATING on Room 86 Air] Pulse Ox [At REST on Room Air] 89 Pulse Ox 93 Temperature 98.3 F Pulse Rate 59 Respiratory Rate 20 Blood Pressure [BP] 120/80 Blood Pressure 118/92 Blood Pressure Position [BP] Semi-Fowlers Blood Pressure Position Semi-Fowlers [] General: Alert, Oriented x3, Cooperative, No apparent distress HEENT: Atraumatic, PERRLA, EOMI, Normocephalic Oral: Moist Mucosa Neck: Supple, No JVD, Negative Carotid Bruits Lungs: Clear to auscultation, Normal air movement, No rhonchi, mild wheezesm bilaterally, No rales, - - on 2L of oxygen by nasal canula Cardiovascular: Regular rate, Regular Rhythm, Normal S1, Normal S2, No murmurs Abdomen: Bowel Sounds Present, Soft, Non Tender, Non-Distended, No Hepato- splenomegaly Extremities: No clubbing, No cyanosis, No edema, Capillary Refill Less than 3 Seconds Skin: No rashes, No breakdown Musculoskeletal: No Tenderness to Palpation of Joints or Extremities Lymphatic: No Cervical, Supraclavicular, or Inguinal Adenopathy Neurological: Cranial nerves II-XII grossly intact, Motor Exam 5/5 strength throughout Psych/Mental Status: Normal Affect, Appropriate, Alert and oriented to time, place, person, mood and affect Plan as stated above. Patient counseled strongly to quit smoking. Discharge Diet: 2000 mg Sodium Diet Discharge Activity: Return to Normal Activity Weight Bearing Status: Weight bearing as tolerated Call your doctor if you observe: Shortness of breath, Chest pain Home Medications: Medications to take at Discharge Fluoxetine [Prozac] 40 mg PO DAILY 02/09/14 Lansoprazole [Prevacid] 15 mg PO DAILY 02/09/14 Albuterol Inhaler [Ventolin Hfa] 1 puff INHALATION Q4H PRN PRN #1 inhaler Fexofenadine HCl [Renetta Allergy] 60 mg PO DAILY 04/03/16 Guaifenesin [Mucinex] 40 mg PO DAILY 04/03/16 Meclizine HCl [Antivert] 25 mg PO BID PRN PRN 04/03/16 Fluticasone/Vilanterol [Breo Ellipta 100-25 Mcg INH] 1 puff INHALATION BID 11/16 Propranolol HCl 10 mg PO DAILY 11/16/17 Cefdinir [Omnicef [equiv]] 300 mg PO Q12 #6 cap 11/20/17 Ipratropium/Albuterol Sulfate [Duoneb] 3 ml INHALATION Q6H.RT #30 ampul.neb 11/30 MethylPREDNISolone DosePak [Medrol DosePak] 4 mg PO UD #1 box 11/20/17 Following Prescrptions Were Given to Patient: Ipratropium/Albuterol Sulfate [Duoneb] 3 ml INHALATION Q6H.RT #30 ampul.neb Cefdinir [Omnicef [equiv]] 300 mg PO Q12 #6 cap MethylPREDNISolone DosePak [Medrol DosePak] 4 mg PO UD #1 box Primary Care Physician: Jose Carlos Lang MD [Primary Care Provider] - Please follow up with your Primary Care Physician in: one week Please Follow Up With: Grzegorz Gallagher MD When: 1-2 weeks Disposition: Home Minutes spent on discharge:: 45 Patient Condition:: Stable Medical Necessity - Tobacco Use Smoking Status: Current every day smoker Tobacco Use: Cigarettes Meaningful Use Info Meaningful Use Diagnoses (Choose all that apply): None applicable Code Visit Inpatient E&M: 03422 Disch Hosp
--- NOTE | 2017-11-20 13:44 | NURSING ---
CLARIFIED DISCHARGE INSTRUCTIONS W/ PT
[2017-11-20 14:22] LABS: Pathologist Review Reviewed
--- NOTE | 2017-11-22 15:52 | CASEMGMT ---
ELIN FERNÁNDEZ Discharge Follow-up Phone Call: DUNCAN: 12 Strata: 4 Call Date: 11/22/17 Discharge Date: 11/20/17 Time of Call: 1553 Duration: 1 min Admitting Diagnosis: Acute respiratory failure ELIN FERNÁNDEZ attempted to complete follow-up phone call after recent hospitalization. No answer, voice message left with return contact information. Patient was setup with home oxygen prior to discharge. Patient has follow-up appt with Krista 12/05/17 and Precious 11/22.
== END 2017-11-20 14:03 | disposition home or self-care (01) | DRG 416 ==
LOC: ED 16:15 → ICU 17:03 → MS3 11-19 11:27
PROVIDERS: Family Medicine; Internal Medicine Critical Care Medicine; Admitting Provider Student in an Organized Health Care Education/Training Program; Emergency Provider Emergency Medicine; Family Provider Family Medicine; PCP Family Medicine; Visit Provider Student in an Organized Health Care Education/Training Program
DX: A41.89 Other specified sepsis (principal); J96.01 Acute respiratory failure with hypoxia; J44.1 Chronic obstructive pulmonary disease with (acute) exacerbation; N17.9 Acute kidney failure, unspecified; J44.0 Chronic obstructive pulmonary disease with (acute) lower respiratory infection; J96.02 Acute respiratory failure with hypercapnia; A41.3 Sepsis due to Hemophilus influenzae; J20.6 Acute bronchitis due to rhinovirus; J20.1 Acute bronchitis due to Hemophilus influenzae; F17.210 Nicotine dependence, cigarettes, uncomplicated; K21.9 Gastro-esophageal reflux disease without esophagitis
CPT/HCPCS: 31500; 31720; 36415; 36600; 51702; 71045; 71275; 80048; 80061; 82550; 82803; 82962; 83605; 83735; 84478; 84484; 85025; 87040; 87070; 87077; 87205; 87449; 87633; 87641; 87804; 93005; 93306; 94002; 94003; 94640; 94660; 94799; 95831; 97110; 97116; 97162; 97166; 97530; 97802; 99251; 99285; 99406; J7030; J7050; Q9967; A4216; G0463; J0330

== ENCOUNTER 2019-10-30 21:49 | Emergency (ER) | payer MEDICAID, SELFPAY ==
[2019-10-30 21:50] VITALS: BP 132/90; PULSE 81; RESP 18; TEMP 36.3; O2SAT 92; BMI 17.8
--- NOTE | 2019-10-30 22:42 | ED.VIS.GEN ---
History of Present Illness Chief Complaint: Fall Informant: Patient Narrative: 59-year-old female presents with back pain. She states is in her lower lumbar right paraspinal area. She states she was trying to lift a crate of vegetables and she did not bend her knees and states that she felt a pop in her back. She states that she fell down but this was slowly. She did not injure anything else. She did not hit her head. No LOC. She did not fall due to lightheadedness or dizziness. Tylenol about 3 hours ago which helped some. Past Medical History - Allergies and Home Meds Allergies/Adverse Reactions: Allergies Sulfa (Sulfonamide Antibiotics) Allergy (Verified 10/30/19 21:54) Other Primary Care Physician: Jose Carlos Lang MD [Primary Care Provider] - Prior records reviewed: Yes Surgical History: cholecystectomy Smoking Status: Current every day smoker - Family History Paternal Family History: Reports: COPD - brother Review of Systems General: Denies: Chills, Fever, Sweats Eyes: Denies: Visual changes - bilaterally, Diplopia ENT: Denies: Rhinorrhea, Sore throat Cardiovascular: Denies: Chest pain, Palpitations Respiratory: Denies: Dyspnea, Cough, Dyspnea on exertion Gastrointestinal: Denies: Abdominal pain, Nausea, Vomiting, Diarrhea, Melena, Hematochezia Genitourinary: Denies: Dysuria, Hematuria, Frequency Musculoskeletal: Reports: Back pain Skin: Denies: Rash Neurological: Denies: Headache Hematologic: Denies: Easy bruising, Easy bleeding Allergy: Denies: Uticaria Physical Exam Vital Signs/Narrative: Vital Signs Temp Pulse Resp BP Pulse Ox 10/30/19 21:50 97.3 F L 81 18 132/90 H 92 Inital Vital Signs reviewed: Yes General: Well nourished, Well developed Head: Normocephalic, Atraumatic Cardiovascular: Regular rate, Regular rhythm Back: - - To palpation right lumbar paraspinal musculature. There is no midline spinal tenderness, deformity, step-off. Extremities: Nontender Skin: Normal color, No rash Neurological: Alert Psychological: Normal affect Diagnostic/Tx/Re-eval - Medical Decision Making Patient was seen and evaluated for back pain. She has concerned because she heard a pop when she was lifting earlier. On examination she has right paraspinal muscular tenderness. X-ray the lumbar spine shows no acute fractures. Patient was given Flexeril which she has tolerated before and states that this does help. She will be given a prescription for this for home. She is given instructions for home care. She is given return precautions. ED Disposition - Plan for ED Patient: Diagnosis: Lumbar strain Instructions: ED LUMBAR SPRAIN/STRAIN Prescriptions: Cyclobenzaprine HCl 10 mg PO Q8H PRN PRN #10 tab PRN Reason: Spasms Prescription Printed Referrals: Jose Carlos Lang MD [Primary Care Provider] -
[2019-10-30] MEDS: cycloBENZAPRine HCl 10 MG Tablet PO (22:48)
--- NOTE | 2019-10-30 22:50 | RAD_ITS ---
STUDY: X-RAY - LUMBAR SPINE REASON FOR EXAM: Female, 59 years old. Fall. Pain with movement. TECHNIQUE: 3 view(s) of the lumbar spine were obtained. COMPARISON: None FINDINGS: Normal lumbar lordosis. There is no substantial scoliosis. There is a normal alignment of the vertebrae. Normal vertebral bodies and endplates. Normal disc space heights. There is no evidence of acute fracture or loss of vertebral axial height. There is atherosclerotic calcification of the abdominal aorta without a demonstrated aneurysm. RAD/Lumbar Spine 2 or 3 Views IMPRESSION: No acute fracture or dislocation. Electronically Signed: Jose Maria Gonzalez DO at 23:22 EDT Tel [phone], Service support ,
== END 2019-10-31 00:05 | disposition home or self-care (01) ==
LOC: ED 23:14
PROVIDERS: Emergency Provider Student in an Organized Health Care Education/Training Program; PCP Family Medicine
DX: S39.012A Strain of muscle, fascia and tendon of lower back, initial encounter (principal); X50.9XXA Other and unspecified overexertion or strenuous movements or postures, initial encounter; Y93.9 Activity, unspecified; Y92.9 Unspecified place or not applicable; Y99.9 Unspecified external cause status; F17.200 Nicotine dependence, unspecified, uncomplicated; Z79.899 Other long term (current) drug therapy; Z88.2 Allergy status to sulfonamides; Z90.49 Acquired absence of other specified parts of digestive tract
CPT/HCPCS: 72100; 99283

== ENCOUNTER 2021-07-13 15:27 | Emergency (ER) | payer MEDICAID, SELFPAY ==
[2021-07-13 15:28] VITALS: BP 145/109; PULSE 78; RESP 14; TEMP 36.2; O2SAT 97; BMI 17.8
--- NOTE | 2021-07-13 17:04 | CT_ITS ---
INDICATION: abdominal pain EXAMINATION: CT ABDOMEN AND PELVIS with CONTRAST - CT Abdomen And Pelvis W/ Contrast Injection TECHNIQUE: Multiple axial images were obtained of the abdomen following administration of IV contrast. Planar reconstructions obtained. A radiation dose optimization technique was used for this scan. IV Contrast dosage and agent: None. Oral contrast: None. COMPARISON: None. FINDINGS: LOWER THORAX: Lungs are clear. HEPATOBILIARY: Liver: 1. Liver has normal configuration. Several low density lesions likely cysts present within the RIGHT hepatic lobe, measuring approximately 7 mm in size. There is a cyst along the inferior aspect of the LEFT hepatic lobe measuring approximately 19 x 16 mm. 2. There is mild periportal edema within the liver. Mild prominence of the common bile duct with maximal dimension of approximately 9 to 10 mm. . Gallbladder: Surgically absent. Pancreas: Pancreas is normal size configuration and density. No mass is noted. Spleen: The spleen is homogeneous and normal in size. . BOWEL: Stomach: The stomach is normal in size configuration, no evidence of focal masses, abnormal calcifications. No hiatal hernia noted. Bowel: Large and small bowel loops have normal configuration however there is a large amount retained stool within the colon. No evidence of bowel obstruction. No evidence diverticulitis. Appendix: Not visualized.: GENITOURINARY: Adrenals: Both adrenal glands are normal in size. Kidneys: Kidneys appear symmetric in size. No calcifications are seen in the collecting system. There is no hydronephrosis or surrounding fluid. Bladder: Normal Pelvic organs: The visualized pelvic organs are normal in size and configuration. No masses or adenopathy noted. RETROPERITONEUM: Diffuse vascular callus cages throughout the aorta without aneurysmal dilatation. LYMPH NODES: No evidence of retroperitoneal or para-aortic masses fluid collections or adenopathy. PERITONEAL CAVITY: Trace fluid noted in the upper abdomen. No christiano ascites noted. ANTERIOR ABDOMINAL WALL: Normal, no hernia identified. BONES AND SOFT TISSUES: Mild diffuse lumbar spondylosis, mild deformity of the inferior endplate of L2. No acute bony changes noted. OTHER: None CT/Abdomen/Pelvis W IV Cont ONLY IMPRESSION: 1. Multiple hepatic cysts. Mild periportal edema is noted. 2. Status post cholecystectomy with mild prominence of the common bile duct. 3. Large amount of retained stool throughout the colon consistent with constipation. No bowel obstruction. No abscess or free air. 4. The appendix is not visualized. 5. No evidence of obstructive uropathy. 6. Trace free fluid is noted in the upper abdomen. Electronically Signed: Dylan Norris MD at 19:11 EDT ,
--- NOTE | 2021-07-13 17:06 | EX.ED.DYSGE1 ---
HPI <JOSH Gutierrez - Last Filed: 07/13/21 19:43> History of Present Illness Chief Complaint: Abd Pain Narrative Narrative: 61-year-old female with history of COPD, hypertension presents to the emergency department 2 days of generalized abdominal bloating, pain. Patient states that she has had this in the past however this severe. Patient states that now she feels that she is bloated, she is having worsening pain and is nauseated. Patient states that she has to walk bent over because walking straight up is painful. Denies any fevers or chills, denies any diarrhea. Patient denies any blood in stool or vomit. PFSH <JOSH Gutierrez - Last Filed: 07/13/21 19:43> [facility] Medical History (Updated 07/13/21 @ 19:41 by JOSH Gutierrez) COPD (chronic obstructive pulmonary disease) HTN (hypertension) Home Medications albuterol sulfate [Ventolin HFA] 1 puff INHALATION Q4H PRN PRN #1 inhaler 02/10/14 [Rx Last Taken Unknown] polyethylene glycol 3350 [Miralax] 17 g PO BID #119 g 07/13/21 [Rx Last Taken Unknown] Allergy/AdvReac Type Severity Reaction Status Date / Time Sulfa (Sulfonamide Allergy Other Verified 07/13/21 15:31 Antibiotics) Surgical History (Updated 07/13/21 @ 16:43 by Yeni Thompson) H/O shoulder surgery History of cholecystectomy History of tonsillectomy Social History Smoking Status: Current every day smoker tobacco type: cigarettes ROS <JOSH Gutierrez - Last Filed: 07/13/21 19:43> ROS ED ROS Narrative Constitutional: Negative for fever, chills, weight loss or gain, weakness Eyes: Negative for vision loss, vision change, double vision ENT: Negative for any hearing changes, ringing in the ears, discharge, pain Nose: Negative for any congestion, runny nose, sinus pain, allergies Throat: Negative for any sore throat, swelling, voice changes, Cardiovascular: Negative for any chest pain, tightness, palpitations, racing heartbeat Respiratory: Negative for any cough, sputum production, hemoptysis, shortness of breath, shortness of breath on exertion, Gastrointestinal: Negative for any vomiting, diarrhea, blood in stool, blood in vomit. Positive for abdominal pain, nausea, constipation : Negative for any urinary frequency, incontinence, dysuria, retention, blood in urine Muscle skeletal: Negative for any muscle joint pain, stiffness, myalgias, arthralgias, neck pain, back pain Neurological: Negative for any headache, dizziness, syncope, numbness or tingling Skin: Negative for any rashes, lumps, itching, abrasions, lacerations Psychiatric: Negative for any depression, anxiety, stress, suicidal ideation, homicidal ideation Hematologic: Negative for any easy bruising, excessive bruising, easy bleeding Allergies: Negative for any eczema, hives, rash EXAM <JOSH Gutierrez - Last Filed: 07/13/21 19:43> Physical Exam Const Vital Signs: 07/13/21 15:28 07/13/21 18:55 07/13/21 19:28 Temperature 97.1 F L Temperature Source Temporal Pulse Rate 78 70 Respiratory Rate 14 16 16 Blood Pressure 145/109 H 137/102 H Blood Pressure Mean 121 113 Pulse Ox 97 95 Oxygen Delivery Method Room Air Room Air 07/13/21 19:39 Temperature Temperature Source Pulse Rate Respiratory Rate Blood Pressure 130/97 H Blood Pressure Mean 108 Pulse Ox Oxygen Delivery Method Patient appears baseline, patient is skinny Positive well nourished and well developed General Appearance ED: well developed HEENT Reports dry mucous membranes HEENT Narrative: HEENT exam normal Mouth ED: Yes dry mucous membranes Mouth: dry mucous membranes Eyes PERRL and EOMs intact bilaterally Neck no lymphadenopathy and supple Chest Wall inspection of chest normal and palpation of chest normal Resp normal respiratory effort and clear to auscultation bilaterally Cardio regular rate, regular rhythm, S1 normal heart sound, S2 normal heart sound and no murmurs GI GI Narrative: Patient has generalized tenderness to the lower abdomen Auscultation: normoactive bowel sounds Palpation: soft and tender Back/Spine no CVA tenderness Extremity normal to inspection Neuro oriented x3 and CN's II-XII intact bilaterally Sensorium / Orientation: alert Motor Exam: strength 5/5 throughout Psych mental status grossly normal Skin no rashes or lesions noted <Dr. Rajinder Matute DO - Last Filed: 07/13/21 19:48> Physical Exam Const Vital Signs: 07/13/21 15:28 07/13/21 18:55 07/13/21 19:28 Temperature 97.1 F L Temperature Source Temporal Pulse Rate 78 70 Respiratory Rate 14 16 16 Blood Pressure 145/109 H 137/102 H Blood Pressure Mean 121 113 Pulse Ox 97 95 Oxygen Delivery Method Room Air Room Air 07/13/21 19:39 Temperature Temperature Source Pulse Rate Respiratory Rate Blood Pressure 130/97 H Blood Pressure Mean 108 Pulse Ox Oxygen Delivery Method [facility] <Dany Anderson NP-C - Last Filed: 07/13/21 19:43> [facility] Narrative Medical decision making narrative: Patient appears well, patient appears nontoxic, vital signs are stable. Patient presents emerged part with 2 days of lower abdominal pain, bloating. Patient did receive a full abdominal work-up, patient CBC was unremarkable, patient's CMP was unremarkable, patient's urinalysis was negative for any infection. Patient was given IV fluids, small dose of IV morphine, IV Zofran, this did relieve her pain. Patient CT of the abdomen pelvis did show multiple hepatic cyst, these are chronic, patient is aware of these and has follow-up. Patient does have a large amount of retained stool throughout the colon consistent with constipation. No bowel obstruction or free air. Patient does have magnesium citrate at home, patient will be given a prescription for MiraLAX. At this time, there is no indication of any bowel obstruction or acute abdominal process. Patient struck to to use stool softeners as well as eat a high-fiber diet and to maintain hydration. Patient is stable for discharge instructed return for worsening symptoms. Lab Data Labs: Laboratory Results - last 24 hr 07/13/21 07/13/21 07/13/21 16:50 16:50 18:52 WBC 4.8 RBC 4.29 Hgb 13.3 Hct 42.1 MCV 98.1 MCH 31.0 MCHC 31.6 L RDW Std Deviation 47.4 H RDW Coeff of Sarah 13.2 Plt Count 168 MPV 9.4 Immature Gran % (Auto) 0.200 Neut % (Auto) 45.3 L Lymph % (Auto) 43.3 H [place] % (Auto) 8.2 Eos % (Auto) 1.9 Baso % (Auto) 1.1 H Absolute Neuts (auto) 2.2 Absolute Lymphs (auto) 2.06 Nucleated RBC % 0 Sodium 143 Potassium 3.6 Chloride 104 Carbon Dioxide 36.0 H Anion Gap 3 L BUN 14 Creatinine 0.82 Estim Creat Clear Calc 56.87 Est GFR (MDRD) Af Amer 91 Est GFR (MDRD) Non-Af 75 BUN/Creatinine Ratio 17.1 Glucose 101 Calcium 9.1 Total Bilirubin 0.30 AST 17 ALT 12 L Alkaline Phosphatase 41 L Total Protein 6.4 Albumin 3.6 Globulin 2.8 Albumin/Globulin Ratio 1.3 Lipase 74 Urine Color Yellow Urine Clarity Sl. Cloudy Urine pH 6.5 Ur Specific Salters 1.015 Urine Protein 15 H Urine Glucose (UA) Normal Urine Ketones 5 H Urine Occult Blood Negative Urine Nitrite Negative Urine Bilirubin Negative Urine Urobilinogen Normal Ur Leukocyte Esterase Negative Urine RBC 0 SEEN Urine WBC 0 SEEN Ur Squamous Epith Cells 0-5 SEEN Urine Bacteria 0 SEEN Urine Mucus 0 SEEN Radiography Diagnostic Testing: Clinical Impression(s) from Imaging Studies Abdomen/Pelvis CT 07/13/21 17:04 IMPRESSION: 1. Multiple hepatic cysts. Mild periportal edema is noted. 2. Status post cholecystectomy with mild prominence of the common bile duct. 3. Large amount of retained stool throughout the colon consistent with constipation. No bowel obstruction. No abscess or free air. 4. The appendix is not visualized. 5. No evidence of obstructive uropathy. 6. Trace free fluid is noted in the upper abdomen. Electronically Signed: Dylan Norris MD at 19:11 EDT , <Dr. Rajinder Matute, DO - Last Filed: 07/13/21 19:48> [facility] Narrative Medical decision making narrative: Patient seen in conjunction with the nurse practitioner. Agree with assessment and work-up. Abdominal exam is benign. Patient was medicated with morphine and Zofran. We did obtain lab work and her CBC showed no leukocytosis and she has a stable hemoglobin hematocrit. Renal function electrolytes are normal. LFTs are normal. Urinalysis negative for infection. She had a CT of the abdomen pelvis which is negative for acute abdominal pathology but does show a large stool burden. Patient will be given MiraLAX for home. She is given return precautions. Impression: 1. Abdominal pain 2. Constipation 3. Hepatic cysts Lab Data Labs: Laboratory Results - last 24 hr 07/13/21 07/13/21 07/13/21 16:50 16:50 18:52 WBC 4.8 RBC 4.29 Hgb 13.3 Hct 42.1 MCV 98.1 MCH 31.0 MCHC 31.6 L RDW Std Deviation 47.4 H RDW Coeff of Sarah 13.2 Plt Count 168 MPV 9.4 Immature Gran % (Auto) 0.200 Neut % (Auto) 45.3 L Lymph % (Auto) 43.3 H [place] % (Auto) 8.2 Eos % (Auto) 1.9 Baso % (Auto) 1.1 H Absolute Neuts (auto) 2.2 Absolute Lymphs (auto) 2.06 Nucleated RBC % 0 Sodium 143 Potassium 3.6 Chloride 104 Carbon Dioxide 36.0 H Anion Gap 3 L BUN 14 Creatinine 0.82 Estim Creat Clear Calc 56.87 Est GFR (MDRD) Af Amer 91 Est GFR (MDRD) Non-Af 75 BUN/Creatinine Ratio 17.1 Glucose 101 Calcium 9.1 Total Bilirubin 0.30 AST 17 ALT 12 L Alkaline Phosphatase 41 L Total Protein 6.4 Albumin 3.6 Globulin 2.8 Albumin/Globulin Ratio 1.3 Lipase 74 Urine Color Yellow Urine Clarity Sl. Cloudy Urine pH 6.5 Ur Specific Salters 1.015 Urine Protein 15 H Urine Glucose (UA) Normal Urine Ketones 5 H Urine Occult Blood Negative Urine Nitrite Negative Urine Bilirubin Negative Urine Urobilinogen Normal Ur Leukocyte Esterase Negative Urine RBC 0 SEEN Urine WBC 0 SEEN Ur Squamous Epith Cells 0-5 SEEN Urine Bacteria 0 SEEN Urine Mucus 0 SEEN Radiography Diagnostic Testing: Clinical Impression(s) from Imaging Studies Abdomen/Pelvis CT 07/13/21 17:04 IMPRESSION: 1. Multiple hepatic cysts. Mild periportal edema is noted. 2. Status post cholecystectomy with mild prominence of the common bile duct. 3. Large amount of retained stool throughout the colon consistent with constipation. No bowel obstruction. No abscess or free air. 4. The appendix is not visualized. 5. No evidence of obstructive uropathy. 6. Trace free fluid is noted in the upper abdomen. Electronically Signed: Dylan Norris MD at 19:11 EDT , Discharge Plan Triage Chief Complaint: Abd Pain ED Midlevel Provider: Dany Anderson ED Provider: Rajinder Matute Dx/Rx/DC Orders Clinical Impression: Abdominal pain, Constipation Instructions: Abdominal Pain, ED Constipation (Adult) Prescriptions: New polyethylene glycol 3350 [Miralax] 17 gram/dose powder 17 g PO BID Qty: 119 RF: 0 No Action albuterol sulfate [Ventolin HFA] 1 INHALER inhaler 1 puff inhalation Q4H PRN PRN (Reason: Wheezing) Qty: 1 RF: 0 Primary Care Provider: Jose Carlos Lang Referrals: Jose Carlos Lang MD [Primary Care Provider] - Activity Restrictions/Additional Instructions: Please use your magnesium citrate at home if you choose, or please take MiraLAX twice a day, please make sure that use it high-fiber diet as well as maintain hydration. Print Language: Croatian Disposition Disposition: Home, Self Care
[2021-07-13] MEDS: 0.9% Normal Saline 1,000 ML 1000 ML IV (17:11)
[2021-07-13] MEDS: Ondansetron 4 MG/2 ML Vial IV (17:12)
[2021-07-13] MEDS: Morphine 2 MG/ML Syringe IV (17:13)
[2021-07-13 17:32] LABS: ALB/GLOB Ratio 1.3 RATIO (0.9-2.4); AST(SGOT) 17 U/L (15-37); Alanine Aminotransfer ALT/SGPT 12 U/L (13-56); Albumin, Serum 3.6 g/dL (3.2-5.0); Alkaline Phosphatase 41 U/L (45-117); Anion Gap 3 (5-15); BUN 14 mg/dL (7-18); BUN/Creat Ratio 17.1 RATIO (10-20); Calcium,Total 9.1 mg/dL (8.5-10.1); Chloride 104 mmol/L (98-107); Creatinine, Serum 0.82 mg/dL (0.55-1.02); EST Glomerular Filtration Rate 75 mL/min (>60); Est Glom Filt Rate - Afr Amer 91 mL/min (>60); Estimated Creatinine Clearance 56.87 ml/min; Globulin 2.8 g/dL (2.2-4.2); Glucose 101 mg/dL (74-106); Lipase 74 U/L (73-393); Potassium 3.6 mmol/L (3.5-5.1); Protein, Total 6.4 g/dL (6.4-8.2); Sodium Level 143 mmol/L (136-145)
[2021-07-13 17:46] LABS: Absolute Lymphocyte Count 2.06 X10^3/uL (0.83-4.51); Absolute Neutrophil Count 2.2 X10^3/uL (2.0-7.7); Basophil# 0.05 X10^3/uL; Basophil% 1.1 % (0-1); Eosinophil# 0.09 X10^3/uL; Eosinophils% 1.9 % (0-5); Hematocrit 42.1 % (37-47); Hemoglobin 13.3 g/dL (12.0-15.0); Lymphocyte # 2.06 X10^3/ul (0.83-4.51); Lymphocyte % 43.3 % (19-41); Mean Corp Hgb Conc 31.6 g/dL (32-36); Mean Corpuscular Volume 98.1 fL (81-99); Mean Platelet Vol. 9.4 fl (6.2-12.0); Monocyte# 0.39 X10^3/uL; Monocyte% 8.2 % (0-10); NRBC Flagged by Analyzer 0 % (0-5); Neutrophil # 2.16 X10^3/uL (2.7-7.7); Neutrophil % 45.3 % (47-70); Platelet Count 168 K/mm3 (150-450); RBC Distribution Width CV 13.2 % (11.6-14.6); RBC Distribution Width SD 47.4 fl (35.1-43.9); Red Blood Count 4.29 M/mm3 (4.2-5.4); White Blood Count 4.8 K/mm3 (4.4-11.0)
[2021-07-13 18:55] VITALS: RESP 16
[2021-07-13 18:57] LABS: Bacteria 0 SEEN /hpf (None Seen); Mucous, Urine 0 SEEN /hpf (<or=2+); Red Blood Cells-Urine 0 SEEN /hpf (0-5); White Blood Cells 0 SEEN /hpf (0-5)
[2021-07-13 19:03] LABS: Color, Urine Yellow (Yellow); Glucose, Dipstick Normal (Normal); Ketone-Dipstick 5 mg/dl (Negative); Leukocyte Esterase-Dipstick Negative /ul (Negative); Nitrite-Dipstick Negative (Negative); Occult Blood-Urine Negative /ul (Negative); Protein-Dipstick 15 mg/dl (Negative); Specific Gravity, Urine 1.015 (1.002-1.030); Urine Bilirubin Dipstick Negative (Negative); Urine Clarity Sl. Cloudy (Clear); Urine Urobilinogen Normal (Normal); Urine pH 6.5 (5.0 - 8.0)
[2021-07-13 19:14] LABS: Squamous Epithelial Cells - UA 0-5 SEEN /hpf (5-10)
[2021-07-13 19:28] VITALS: BP 137/102; PULSE 70; RESP 16; O2SAT 95
[2021-07-13 19:39] VITALS: BP 130/97
[2021-07-13 19:48] VITALS: BP 132/78; PULSE 71; RESP 18; O2SAT 95
== END 2021-07-13 19:49 | disposition home or self-care (01) ==
PROVIDERS: Nurse Practitioner; Emergency Provider Student in an Organized Health Care Education/Training Program; PCP Family Medicine; Visit Provider Student in an Organized Health Care Education/Training Program
DX: R10.9 Unspecified abdominal pain (principal); J44.9 Chronic obstructive pulmonary disease, unspecified; K59.00 Constipation, unspecified; K76.89 Other specified diseases of liver; I10 Essential (primary) hypertension; F17.210 Nicotine dependence, cigarettes, uncomplicated
CPT/HCPCS: 74177; 80053; 81001; 83690; 85025; 96361; 96374; 96375; 99283; J7030; Q9967; A4216; J2405

== ENCOUNTER 2021-11-24 16:35 | Inpatient (IN) | payer MEDICAID, SELFPAY ==
[2021-11-24] VITALS (10 sets, daily range): BP systolic 128–159; BP diastolic 93–115; PULSE 82–92; RESP 13–25; TEMP 36.6–37.2; O2SAT 87–97; BMI 18.7; BMI 18.6
--- NOTE | 2021-11-24 16:52 | EKG12_ITS ---
Test Reason : SOB Blood Pressure : / mmHG Vent. Rate : 082 BPM Atrial Rate : 082 BPM P-R Int : 138 ms QRS Dur : 066 ms QT Int : 360 ms P-R-T Axes : 082 268 056 degrees QTc Int : 420 ms Normal sinus rhythm Possible Left atrial enlargement Right superior axis deviation Pulmonary disease pattern Possible Right ventricular hypertrophy Septal infarct , age undetermined Abnormal ECG When compared with ECG of 16-NOV-2017 16:04, QRS duration has decreased Questionable change in initial forces of Septal leads Non-specific change in ST segment in Anterior leads Nonspecific T wave abnormality, worse in Inferior leads Confirmed by JHOAN KHAN, MARIBEL ([id number]), video editor NESS ESPINOSA ([id number]) on 11/27/2021 1:52:00 PM Referred By: BRAYDON Confirmed By:MARIBEL STAPLES MD
--- NOTE | 2021-11-24 16:54 | EDS_ITS ---
HPI <JOSH Gutierrez - Last Filed: 11/24/21 18:53> History of Present Illness Chief Complaint: Shortness of Breath Narrative Narrative: 61-year-old female with history of COPD, alcohol, tobacco abuse presents the emergency department with 1 month of worsening shortness of breath. Over the last month, patient has had a change in her home, this is caused a lot of stress and she has been smoking a pack to 1.5-1 full pack of cigarettes a day. 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 Patient states that she also for the last 2 weeks has been having worsening edema to her lower extremities. She does not wear oxygen at home. Patient was hypoxic on arrival here 85%. Patient is tachypneic, denies any fevers or chills or chest pain. PFSH <JOSH Gutierrez - Last Filed: 11/24/21 18:53> PFSH Medical History Anxiety Asthma Bipolar disorder COPD (chronic obstructive pulmonary disease) CPAP (continuous positive airway pressure) dependence Depression GERD (gastroesophageal reflux disease) HTN (hypertension) Migraines Sleep apnea Smoker Home Medications lansoprazole 15 mg capsule,delayed release 15 mg PO DAILY 11/24/21 [History Last Taken 11/24/21] polyethylene glycol 3350 17 gram/dose oral powder (Miralax) 17 g PO BID PRN PRN Constipation 11/24/21 [History Last Taken Unknown] Allergy/AdvReac Type Severity Reaction Status Date / Time Latex, Natural Rubber Allergy Rash Verified 11/24/21 18:34 Sulfa (Sulfonamide Allergy Other Verified 11/24/21 17:21 Antibiotics) Family History (Updated 11/24/21 @ 19:[address] Fatoumata Khanna MD) Mother Heart disease Father Heart disease Surgical History H/O shoulder surgery History of cholecystectomy History of tonsillectomy Social History (Updated 11/24/21 @ 19:[address] Fatoumata Khanna MD) household members: none Smoking Status: Current every day smoker tobacco type: cigarettes Smoking packs per day: 0.5 Smoking cigarettes per day: 10.0 alcohol intake: former details: Reports prior heavy EtOH abuse, notes she does not drink routinely, vague. substance use type: does not use ROS <JOSH Gutierrez - Last Filed: 11/24/21 18:53> ROS ED ROS Narrative Constitutional: Negative for fever, chills, weight loss. Positive for weakness Eyes: Negative for vision loss, vision change, double vision ENT: Negative for any sore throat, ear pain, congestion Cardiovascular: Negative for any cough, sputum production, hemoptysis,. Positive for cough, dyspnea, dyspnea on exertion, orthopnea Gastrointestinal: Negative for any abdominal pain, nausea, vomiting, diarrhea, constipation, blood in stool, blood in vomit : Negative for any urinary frequency, dysuria, retention, blood in urine Muscle skeletal: Negative for any muscle joint pain, stiffness, myalgias, arthralgias, neck pain, back pain Neurological: Negative for any headache, syncope, numbness or tingling, dizziness Skin: Negative for any rashes, lumps, itching, abrasions, lacerations Psychiatric: Negative for any depression, anxiety, stress, suicidal ideation, homicidal ideation Hematologic: Negative for any easy bruising, excessive bruising, easy bleeding Allergies: Negative for any eczema, hives, rash EXAM <JOSH Gutierrez - Last Filed: 11/24/21 18:53> Physical Exam Narrative Exam Narrative: Vital signs reviewed. On arrival to the hospital bed, the patient was 83% on room air. It took multip le minutes for the patient to get up to 94% on 2 L pulse oximeter. HEET: Head normocephalic atraumatic, TMs clear bilaterally. Posterior pharynx is clear, moist mucous membranes. Nares clear bilaterally. Neck: Supple with no lymphadenopathy or tenderness. No signs of meningismus, negative jolt sign. Cardiac: Regular rate and rhythm no murmurs gallops or rubs, equal peripheral pulses bilaterally. Respiratory: Patient has expiratory wheeze bilaterally however patient does have diminished breath sounds throughout, with the patient is feeling of tightness in her chest.. No chest tenderness. Abdomen: Soft, nontender, nondistended. No abdominal bruit or pulsatile masses. No hepatosplenomegaly Extremities: Patient has +2 pedal edema bilateral, no signs of gross trauma or deformity. Active full range of motion of all extremities. Neuro: Cranial nerves II through XII intact, no focal neurological deficits. Skin: Clean dry and intact with no rash, purpura, petechiae, vesicles or pustules. Backs/flank: No CVA tenderness, no midline spinal tenderness, no deformity. Psych: Normal mood and affect. No SI, HI or acute psychosis. Const Vital Signs: 11/24/21 16:38 11/24/21 17:10 11/24/21 17:18 Temperature 98 F 98.8 F Temperature Source Temporal Temporal Pulse Rate 92 84 84 Respiratory Rate 25 H 18 13 Respiratory Effort Respiratory Depth Respiratory Pattern Normal Blood Pressure 151/115 H 129/100 H Blood Pressure Mean 127 109 Pulse Ox 87 93 Oxygen Delivery Method Room Air Room Air Oxygen Flow Rate (L/min) 11/24/21 17:18 11/24/21 18:00 11/24/21 18:00 Temperature 98.9 F Temperature Source Temporal Pulse Rate 83 Respiratory Rate 21 H Respiratory Effort Non-Labored Short of Breath Respiratory Depth Shallow Respiratory Pattern Normal Blood Pressure 141/95 H 141/95 H Blood Pressure Mean 110 110 Pulse Ox 93 Oxygen Delivery Method Room Air Nasal Cannula Oxygen Flow Rate (L/min) 3 <Dr. Teo Estrella MD - Last Filed: 11/24/21 23:04> Physical Exam Const Vital Signs: 11/24/21 16:38 11/24/21 17:10 11/24/21 17:18 Temperature 98 F 98.8 F Temperature Source Temporal Temporal Pulse Rate 92 84 84 Respiratory Rate 25 H 18 13 Respiratory Effort Respiratory Depth Respiratory Pattern Normal Blood Pressure 151/115 H 129/100 H Blood Pressure Mean 127 109 Pulse Ox 87 93 Oxygen Delivery Method Room Air Room Air Oxygen Flow Rate (L/min) 11/24/21 17:18 11/24/21 18:00 11/24/21 18:00 Temperature 98.9 F Temperature Source Temporal Pulse Rate 83 Respiratory Rate 21 H Respiratory Effort Non-Labored Short of Breath Respiratory Depth Shallow Respiratory Pattern Normal Blood Pressure 141/95 H 141/95 H Blood Pressure Mean 110 110 Pulse Ox 93 Oxygen Delivery Method Room Air Nasal Cannula Oxygen Flow Rate (L/min) 3 MDM <JOSH Gutierrez - Last Filed: 11/24/21 18:53> [facility] Lab Data Attestation: I reviewed the patient's lab results. Labs: Laboratory Results - last 24 hr 11/24/21 11/24/21 11/24/21 17:20 17:20 17:20 WBC 5.3 RBC 4.45 Hgb 13.9 Hct 44.1 MCV 99.1 H MCH 31.2 MCHC 31.5 L RDW Std Deviation 47.7 H RDW Coeff of Sarah 13.0 Plt Count 195 MPV 9.3 Immature Gran % (Auto) 0.200 Neut % (Auto) 56.7 Lymph % (Auto) 31.7 Woods % (Auto) 8.4 Eos % (Auto) 1.5 Baso % (Auto) 1.5 H Absolute Neuts (auto) 3.0 Absolute Lymphs (auto) 1.69 Nucleated RBC % 0 Sodium 138 Potassium 3.7 Chloride 98 Carbon Dioxide 36.0 H Anion Gap 4 L BUN 12 Creatinine 0.67 Estim Creat Clear Calc 75.45 Est GFR (MDRD) Af Amer 116 Est GFR (MDRD) Non-Af 95 BUN/Creatinine Ratio 18.0 Glucose 94 Calcium 9.1 Troponin I High Sens 28 B-Natriuretic Peptide 813.5 H Radiography Diagnostic Testing: Clinical Impression(s) from Imaging Studies Chest X-Ray 11/24/21 17:35 IMPRESSION: No acute radiographic abnormalities. COPD. Electronically Signed: Otilio Chiang MD at 19:20 EDT , EKG Normal sinus rhythm, : Attestation: I personally reviewed and interpreted this EKG as follows: Interpretation: Sinus Rhythm Comments: Normal sinus rhythm, rate 82 bpm, SC interval 138 ms, QRS duration 66 ms, no acute ST elevation, no acute infarct noted. Treatment and Re-Evaluation Narrative: Patient arrives in mild respiratory distress, patient was 83% when getting back to the room, she was placed on 2 L, at 89%, she then need to put on 3 L. Patient presents the emergency department for worsening shortness of breath, bilateral leg swelling for 1 month. Patient has been increasing her tobacco use in the last month secondary to stress. Patient did receive a full cardiac work- up, patient's EKG was unremarkable, patient's chest x-ray was consistent with COPD interpreted by ER physician. Patient CBC was unremarkable, patient's chemistries were unremarkable, high sensory troponin was 28 which is negative, patient's proBNP was 813 which is elevated. Patient did receive IV Solu-Medrol, albuterol and 2 DuoNeb breathing treatments. On reassessment, patient did have slight increase in wheezing, however as patient still feels tight in her respiratory exam. The patient will need to be admitted for COPD exacerbation, failure to thrive, noncompliance. Patient is on 3 L at around 94%. I do not believe the patient is septic, there is no evidence. Patient will be admitted to the hospital. <Dr. Teo Estrella MD - Last Filed: 11/24/21 23:04> [facility] Narrative Medical decision making narrative: I have personally performed a face to face assessment of the patient and have reviewed the HALEY Note. I performed a substantive portion of the visit including all aspects of the following. My lopez findings include: History is consistent with worsening shortness of breath. She has a history of COPD but has not seen anyone for this in years. She has not had medicines since about 2019. She is still smoking. She states she has been having more wheezing and coughing and more dyspnea and generalized weakness. No fevers or chills. She denies chest pain to me. Exam shows a very thin patient. She initially is in a little bit of respiratory difficulty but does improve quite a bit with oxygen and breathing treatments. But she is not moving air. She really does not have wheezing due to the poor volume of air. Medical Decison Making: Patient's x-ray really shows primarily chronic changes. CBC is overall normal. She does have a mildly elevated BNP but I think her symp toms are mostly due to COPD. Electrolytes do show mild elevation of bicarb but she is not sleepy or lethargic. Troponins negative. She will be admitted Lab Data Labs: Laboratory Results - last 24 hr 11/24/21 11/24/21 11/24/21 17:20 17:20 17:20 WBC 5.3 RBC 4.45 Hgb 13.9 Hct 44.1 MCV 99.1 H MCH 31.2 MCHC 31.5 L RDW Std Deviation 47.7 H RDW Coeff of Sarah 13.0 Plt Count 195 MPV 9.3 Immature Gran % (Auto) 0.200 Neut % (Auto) 56.7 Lymph % (Auto) 31.7 Woods % (Auto) 8.4 Eos % (Auto) 1.5 Baso % (Auto) 1.5 H Absolute Neuts (auto) 3.0 Absolute Lymphs (auto) 1.69 Nucleated RBC % 0 Sodium 138 Potassium 3.7 Chloride 98 Carbon Dioxide 36.0 H Anion Gap 4 L BUN 12 Creatinine 0.67 Estim Creat Clear Calc 75.45 Est GFR (MDRD) Af Amer 116 Est GFR (MDRD) Non-Af 95 BUN/Creatinine Ratio 18.0 Glucose 94 Calcium 9.1 Troponin I High Sens 28 B-Natriuretic Peptide 813.5 H Radiography Diagnostic Testing: Clinical Impression(s) from Imaging Studies Chest X-Ray 11/24/21 17:35 IMPRESSION: No acute radiographic abnormalities. COPD. Electronically Signed: Otilio Chiang MD at 19:20 EDT , Discharge Plan Dx/Rx/DC Orders Clinical Impression: COPD with acute exacerbation, Non-compliance, Hypoxia, Bilateral edema of lower extremity, Elevated brain natriuretic peptide (BNP) level Disposition Disposition: Acute Care Hospital [facility] Discharge Date/Time: 11/24/21 19:41
[2021-11-24] MEDS: Ipratropium/Albuterol Sulfate 3 ML AMPUL.NEB INHALATION ×3 (17:05→22:17)
[2021-11-24] MEDS: Albuterol 2.5 MG/3 ML VIAL.NEB. INHALATION (17:05)
[2021-11-24 17:27] LABS: Absolute Lymphocyte Count 1.69 X10^3/uL (0.83-4.51); Basophil# 0.08 X10^3/uL; Basophil% 1.5 % (0-1); Eosinophil# 0.08 X10^3/uL; Eosinophils% 1.5 % (0-5); Hematocrit 44.1 % (37-47); Hemoglobin 13.9 g/dL (12.0-15.0); Lymphocyte # 1.69 X10^3/ul (0.83-4.51); Lymphocyte % 31.7 % (19-41); Mean Corp Hgb Conc 31.5 g/dL (32-36); Mean Corpuscular Hgb 31.2 pg (27.0-32.0); Mean Corpuscular Volume 99.1 fL (81-99); Mean Platelet Vol. 9.3 fl (6.2-12.0); Monocyte# 0.45 X10^3/uL; Monocyte% 8.4 % (0-10); NRBC Flagged by Analyzer 0 % (0-5); Neutrophil # 3.02 X10^3/uL (2.7-7.7); Neutrophil % 56.7 % (47-70); Platelet Count 195 K/mm3 (150-450); RBC Distribution Width SD 47.7 fl (35.1-43.9); Red Blood Count 4.45 M/mm3 (4.2-5.4); White Blood Count 5.3 K/mm3 (4.4-11.0)
--- NOTE | 2021-11-24 17:35 | RAD_ITS ---
INDICATION: SOB EXAMINATION/TECHNIQUE: X-RAY - XR Chest 1 View COMPARISON: 11/16/2017. FINDINGS: Hyperinflated lungs. Lungs are otherwise clear. Tortuous and calcified thoracic aorta. The heart is not enlarged. No pleural effusion or pneumothorax. No acute osseous abnormalities. RAD/Chest 1 View (Portable) IMPRESSION: No acute radiographic abnormalities. COPD. Electronically Signed: Otilio Chiang MD at 19:20 EDT ,
[2021-11-24 17:50] LABS: Anion Gap 4 (5-15); BUN 12 mg/dL (7-18); Calcium,Total 9.1 mg/dL (8.5-10.1); Chloride 98 mmol/L (98-107); Creatinine, Serum 0.67 mg/dL (0.55-1.02); EST Glomerular Filtration Rate 95 mL/min (>60); Est Glom Filt Rate - Afr Amer 116 mL/min (>60); Estimated Creatinine Clearance 75.45 ml/min; Glucose 94 mg/dL (74-106); Potassium 3.7 mmol/L (3.5-5.1); Sodium Level 138 mmol/L (136-145); Troponin-I HS 28 pg/mL (3.0-54.0)
[2021-11-24 17:52] LABS: BNP,B-Type NATRIURETIC PEPTIDE 813.5 pg/mL (0-100)
[2021-11-24] MEDS: MethylPREDNISolone 125 MG/2 ML Vial IV (18:32)
--- NOTE | 2021-11-24 18:35 | PCM.HP.STD ---
HPI - General General Date of Admission: 11/24/21 Date of Service: 11/24/21 Chief Complaint: Dyspnea, wheezing, out of her COPD medications. HPI Narrative The patient is a 61 y/o F w/ PMHx: COPD with ongoing Tobacco use, HTN, Chronic constipation, Hx prior EtOH abuse who presents to the [facility] ED on 11/24/21 with history of being off of her medications for various reasons over the last at least a year including her COPD medications, hypertensive medications with several day history of progressively worsening dyspnea, wheezing, worse with any exertional attempts with increasing fatigue and malaise with chronic cough with no significant productive sputum nor any fevers or chills prompting ED evaluation. She does say that she is been out of the heat and this is certainly made her situation worse and she is complaining of some lower extremity swelling although this does improve if she elevates her extremities. Work-up in the ED included T 98, heart rate 92, BP 151/115 initially with most recent repeat 141/95, respiratory rate 25, and to be 87% on room air with improvement now to 93% on 3 L nasal cannula, CIWA with WC 5.3, hemoglobin 13.9, platelet 195 without marked shift, BMP with carbon oxide 36 otherwise unremarkable, troponin 28, BNP 813.5, rapid COVID antigen negative, CXR preliminary with chronic changes with no acute obvious cardiopulmonary findings but final read pending. In the ED patient administered Solu-Medrol 125 mg IV x1 as well as DuoNeb therapy x2 and albuterol x1. PFSH Medical History Anxiety Asthma Bipolar disorder COPD (chronic obstructive pulmonary disease) CPAP (continuous positive airway pressure) dependence Depression GERD (gastroesophageal reflux disease) HTN (hypertension) Migraines Sleep apnea Smoker Home Medications lansoprazole 15 mg capsule,delayed release 15 mg PO DAILY 11/24/21 [History Last Taken 11/24/21] polyethylene glycol 3350 17 gram/dose oral powder (Miralax) 17 g PO BID PRN PRN Constipation 11/24/21 [History Last Taken Unknown] Allergy/AdvReac Type Severity Reaction Status Date / Time Latex, Natural Rubber Allergy Rash Verified 11/24/21 18:34 Sulfa (Sulfonamide Allergy Other Verified 11/24/21 17:21 Antibiotics) Family History (Updated 11/24/21 @ 19:[address] Fatoumata Khanna MD) Mother Heart disease Father Heart disease Surgical History H/O shoulder surgery History of cholecystectomy History of tonsillectomy Social History (Updated 11/24/21 @ 19:[address] Fatoumata Khanna MD) household members: none Smoking Status: Current every day smoker tobacco type: cigarettes Smoking packs per day: 0.5 Smoking cigarettes per day: 10.0 alcohol intake: former details: Reports prior heavy EtOH abuse, notes she does not drink routinely, vague. substance use type: does not use ROS ROS Narrative Admission Review of Systems: CONSTITUTIONAL: No weight loss, fever, chills, + weakness or fatigue. HEENT: Eyes: No visual loss, blurred vision, double vision or yellow sclerae. Ears, Nose, Throat: No hearing loss, sneezing, congestion, runny nose or sore throat. SKIN: No rash or itching, lesions, wounds. CARDIOVASCULAR: + Edema. No chest pain, chest pressure or chest discomfort, palpitations, orthopnea, syncopal events. RESPIRATORY: + shortness of breath, cough without marked sputum, wheezing, No hemoptysis. GASTROINTESTINAL: No anorexia, nausea, vomiting or diarrhea, abdominal pain, melena, BRBPR. GENITOURINARY: No dysuria, frequency, urgency or retention. NEUROLOGICAL: No headache, dizziness, syncope, paralysis, ataxia, numbness or tingling in the extremities, focal weakness, change in bowel or bladder control, seizure. MUSCULOSKELETAL: + muscle, back pain, joint pain or stiffness. HEMATOLOGIC: + anemia, bleeding or bruising. LYMPHATICS: No enlarged nodes. No history of splenectomy. PSYCHIATRIC: + history of depression or anxiety. ENDOCRINOLOGIC: No reports of sweating, cold or heat intolerance. No polyuria or polydipsia. ALLERGIES: + history of asthma, rhinitis. Vital Signs Vital Signs Vital Signs: 11/24/21 16:38 11/24/21 17:10 11/24/21 17:18 Temperature 98 F 98.8 F Temperature Source Temporal Temporal Pulse Rate 92 84 84 Respiratory Rate 25 H 18 13 Respiratory Effort Respiratory Depth Respiratory Pattern Normal Blood Pressure 151/115 H 129/100 H Blood Pressure Mean 127 109 Pulse Ox 87 93 Oxygen Delivery Method Room Air Room Air Oxygen Flow Rate (L/min) 11/24/21 17:18 11/24/21 18:00 11/24/21 18:00 Temperature 98.9 F Temperature Source Temporal Pulse Rate 83 Respiratory Rate 21 H Respiratory Effort Non-Labored Short of Breath Respiratory Depth Shallow Respiratory Pattern Normal Blood Pressure 141/95 H 141/95 H Blood Pressure Mean 110 110 Pulse Ox 93 Oxygen Delivery Method Room Air Nasal Cannula Oxygen Flow Rate (L/min) 3 Weight Weight: 119 lb 7.849 oz Body Mass Index (BMI) 18.7 Physical Exam Narrative Physical Examination: General: Awake, alert, oriented x 3 and cooperative, seated upright in the ED bed, fatigued appearing, no acute distress. Skin: Normal color, normal turgor, no icterus, no cyanosis. HEENT: AT/NC, EOMI, PERRLA, mildly dry MM, no carotid bruits or JVD noted. Lungs: Severely diminished, greater bases, tight, and expiratory wheezing, no evidence of any distress no rales or rhonchi. Heart: Currently regular rate and rhythm; no gallop, rub audible. Abdomen: Soft, cachectic thin habitus NTTP, ND, mildly hyperactive BS, no HSM. Extremities: No cyanosis, no clubbing, bilateral ankle to distal rodriguez 1+ edema, discomfort with palpation. Neurological: Patient awake, alert, oriented as noted, cognitive function intact; pupils equally reactive to light and accommodation, cranial nerves II-XII grossly normal, moving all 4 extremities, no focal deficits, strength moderately to severely global decrease secondary to acute presentation, improving with oxygen she notes Psychiatric: Affect appears fatigued otherwise normal, no acute evidence of depressive or anxiety feelings. Results Lab / Micro Data Result Diagrams: 11/24/21 17:20 11/24/21 17:20 Labs: Laboratory Results - last 24 hr 11/24/21 17:20: WBC 5.3, RBC 4.45, Hgb 13.9, Hct 44.1, MCV 99.1 H, MCH 31.2, MCHC 31.5 L, RDW Std Deviation 47.7 H, RDW Coeff of Sarah 13.0, Plt Count 195, MPV 9.3, Immature Gran % (Auto) 0.200, Neut % (Auto) 56.7, Lymph % (Auto) 31.7, [place] % (Auto) 8.4, Eos % (Auto) 1.5, Baso % (Auto) 1.5 H, Absolute Neuts (auto) 3.0, Absolute Lymphs (auto) 1.69, Nucleated RBC % 0 11/24/21 17:20: Sodium 138, Potassium 3.7, Chloride 98, Carbon Dioxide 36.0 H, Anion Gap 4 L, BUN 12, Creatinine 0.67, Estim Creat Clear Calc 75.45, Est GFR (MDRD) Af Amer 116, Est GFR (MDRD) Non-Af 95, BUN/Creatinine Ratio 18.0, Glucose 94, Calcium 9.1, Troponin I High Sens 28 11/24/21 17:20: B-Natriuretic Peptide 813.5 H Micro: Microbiology 11/24/21 17:23 Nasal Secretion SARS-CoV-2 & FLU Antigen (Rapid) - Final Assessment & Plan Assessment/Plan (1) COPD with acute exacerbation: PLAN: Plan The patient is a 61 y/o F w/ PMHx: COPD with ongoing Tobacco use, HTN, Chronic constipation, Hx prior EtOH abuse who presents to the [facility] ED on 11/24/21 with history of being off of her medications for various reasons over the last at least a year including her COPD medications, hypertensive medications with several day history of progressively worsening dyspnea, wheezing, worse with any exertional attempts with increasing fatigue and malaise with chronic cough with no significant productive sputum nor any fevers or chills prompting ED evaluation. #1. Acute Hypoxia secondary to Acute on chronic COPD exacerbation: Will admit to [facility], maintain on oxygen with wean as tolerated to room air, continue ATC duonebs, PRN albuterol, IV methylprednisolone with prednisone transition, HOB, IS parameters, hold on abx therapy pending sputum Cx, respiratory full viral panel and procalcitonin. If concerns may add abx regimen. #2. Hypertension, uncontrolled: Known history, has been off medications, will start low-dose lisinopril/hydrochlorothiazide given lower extremity complaints and closely monitor electrolytes to assure tolerance, PRN IV hydralazine. #3. Bilateral lower extremity peripheral edema: Patient with distal swelling, not markedly pitting, BNP is elevated 813.5, 11/26/2017 echocardiogram with EF 65%, trivial TVI, RVSP 38 mmHg with mild pulmonary hypertension but denies any significant weight gain or marked orthopnea prior to recent acute COPD exacerbation. As noted plans placement on lisinopril?hydrochlorothiazide low-dose regimen, continue to monitor. Patient with chronic neuropathy therefore likely would not tolerate snug Zelalem wraps. #4. Former alcohol abuse: Patient notes in the past she had drinking heavily, states that she rarely drinks these days and if she does it is extremely limited and only occasional. We will obtain mag and Artem to be cautious. If necessary may add CIWA protocol. #5. Chronic constipation: Continue home bowel reigmen. #6. Tobacco Abuse: Encouraged cessation, inpatient consultation per RT, NR if desired. #7. GERD: Continue home PPI. #8. VAIBHAV: Will order BIPAP q HS given current presentation, from discussions has not been compliant. #9. Anxiety and depression: Not on any regimen, potentially associate with recent poor self-care including being off her medications for at least the last year, encourage counseling and PCP follow-up. #10. Severe protein calorie malnutrition: Evidenced by significant muscle and fat wasting, cachectic appearance, BMI 18, will request nutrition consultation for recommendations. #11. DVT prophylaxis: SCDs, Lovenox. #12. CODE STATUS: Full code. Charges/Coding Visit Charges Inpatient E&M: 86193 Init Hosp L3
[2021-11-24 19:03] LABS: Magnesium 2.1 mg/dL (1.6-2.6); Phosphorus 3.8 mg/dL (2.5-4.9)
[2021-11-24 19:40] LABS: Procalcitonin < 0.04 ng/mL (0.00-0.09)
[2021-11-24] MEDS: hydroCHLOROthiazide 12.5mg 12.5 MG PO (21:35)
[2021-11-24] MEDS: guaiFENesin 1,200 MG Tablet 1200 MG PO (21:35)
[2021-11-24] MEDS: Lisinopril 10 MG Tablet PO (21:35)
--- NOTE | 2021-11-24 22:21 | CPS ---
patient refused bipap at time of visit. rt explained importance but patient still refused.
--- NOTE | 2021-11-24 22:39 | NURSING ---
patient refusing scd's and bipap.
[2021-11-25] VITALS (12 sets, daily range): BP systolic 101–122; BP diastolic 79–88; PULSE 78–91; RESP 16–20; TEMP 36.6–36.9; O2SAT 90–98
[2021-11-25 06:29] LABS: Absolute Lymphocyte Count 0.37 X10^3/uL (0.83-4.51); Absolute Neutrophil Count 1.9 X10^3/uL (2.0-7.7); Hematocrit 45.1 % (37-47); Hemoglobin 14.1 g/dL (12.0-15.0); Lymphocyte # 0.37 X10^3/ul (0.83-4.51); Lymphocyte % 15.6 % (19-41); Mean Corp Hgb Conc 31.3 g/dL (32-36); Mean Corpuscular Hgb 31.3 pg (27.0-32.0); Mean Platelet Vol. 9.5 fl (6.2-12.0); Monocyte# 0.05 X10^3/uL; Monocyte% 2.1 % (0-10); NRBC Flagged by Analyzer 0 % (0-5); Neutrophil # 1.92 X10^3/uL (2.7-7.7); POSITIVE DIFFERENTIAL YES; Platelet Count 191 K/mm3 (150-450); RBC Distribution Width CV 13.1 % (11.6-14.6); RBC Distribution Width SD 48.6 fl (35.1-43.9); Red Blood Count 4.51 M/mm3 (4.2-5.4); White Blood Count 2.4 K/mm3 (4.4-11.0)
--- NOTE | 2021-11-25 06:34 | PN.HOSP_ITS ---
Subjective Subjective Patient overnight with increased oxygen supplementation needs with hypoxia with any de-escalation attempt. Patient still having some wheezing and coughing but notes it is improving. Lengthy discussion as patient initial preference to be discharged to home because she needs to continue moving items out of her apar tment and was declining to consider oxygen therapy because she was worried about with the landlord might think however following appropriate review of her current status she is amenable to remaining in understands that this is not safe for her medically to leave. Patient denies fevers, chills, nausea, emesis, abdominal pain, chest pain. Objective Data Objective Data Vital Signs: Vital Signs Temp Pulse Resp BP Pulse Ox O2 Del Method O2 Flow Rate 98.4 F 78 20 H 115/80 90 Room Air 2 11/25/21 05:14 11/25/21 05:14 11/25/21 05:14 11/25/21 05:14 11/25/21 05:20 11/25/21 05:20 11/25/21 05:17 Oxygen Flow Rate (L/min) 2 Oxygen Delivery Method Room Air Weight: 118 lb 6.212 oz Body Mass Index (BMI) 18.6 Intake & Output: Intake and Output for Last 24 Hours 11/23/21 11/24/21 11/25/21 23:59 23:59 23:59 Intake Total 500 / 500 Output Total 400 / 400 Balance 100 / 100 Lab / Micro Data Result Diagrams: 11/25/21 05:50 11/25/21 05:50 Labs: Laboratory Results - last 24 hr 11/24/21 17:20: WBC 5.3, RBC 4.45, Hgb 13.9, Hct 44.1, MCV 99.1 H, MCH 31.2, MCHC 31.5 L, RDW Std Deviation 47.7 H, RDW Coeff of Sarah 13.0, Plt Count 195, MPV 9.3, Immature Gran % (Auto) 0.200, Neut % (Auto) 56.7, Lymph % (Auto) 31.7, [place] % (Auto) 8.4, Eos % (Auto) 1.5, Baso % (Auto) 1.5 H, Absolute Neuts (auto) 3.0, Absolute Lymphs (auto) 1.69, Nucleated RBC % 0 11/24/21 17:20: Sodium 138, Potassium 3.7, Chloride 98, Carbon Dioxide 36.0 H, Anion Gap 4 L, BUN 12, Creatinine 0.67, Estim Creat Clear Calc 75.45, Est GFR (MDRD) Af Amer 116, Est GFR (MDRD) Non-Af 95, BUN/Creatinine Ratio 18.0, Glucose 94, Calcium 9.1, Troponin I High Sens 28 11/24/21 17:20: B-Natriuretic Peptide 813.5 H 11/24/21 19:09: Procalcitonin < 0.04 11/24/21 : Phosphorus 3.8, Magnesium 2.1 Micro: Microbiology 11/24/21 20:22 Interface Orders Respiratory Panel (PCR) - Final 11/24/21 17:23 Nasal Secretion SARS-CoV-2 & FLU Antigen (Rapid) - Final Radiography Diagnostic Testing: Radiology Impression Chest X-Ray 11/24/21 17:35 IMPRESSION: No acute radiographic abnormalities. COPD. Electronically Signed: Otilio Chiang MD at 19:20 EDT , Physical Exam Narrative Physical Examination: General: Awake, alert, oriented x 3 and cooperative, seated upright in the MedSur bed, improved from appearance from day prior. Skin: Normal color, normal turgor, no icterus, no cyanosis. HEENT: AT/NC, EOMI, PERRLA, MMM. Lungs: Severely diminished, greater bases, still tight but expiratory wheezing is lessened, movement is better, no evidence of any distress no rales or rhonchi. Heart: Currently regular rate and rhythm; no gallop, rub audible. Abdomen: Soft, cachectic thin habitus NTTP, ND, normalized BS. Extremities: No cyanosis, no clubbing, prior L ankle distal rodriguez swelling has completely resolved, still distal discomfort with palpation which she notes is chronic. Neurological: Patient awake, alert, oriented as noted, cognitive function intact; pupils equally reactive to light and accommodation, cranial nerves II- XII grossly normal, moving all 4 extremities, no focal deficits, strength improving, moderately globally decreased secondary to acute presentation. Psychiatric: Affect appears fatigued and initially anxious with discussions but following lengthy review understands medically its best for her to remain, no acute evidence of depressive feelings. Assessment & Plan Assessment/Plan (1) COPD with acute exacerbation: PLAN: Plan The patient is a 61 y/o F w/ PMHx: COPD with ongoing Tobacco use, HTN, Chronic constipation, Hx prior EtOH abuse who presents to the [facility] ED on 11/24/21 with history of being off of her medications for various reasons over the last at least a year including her COPD medications, hypertensive medications with several day history of progressively worsening dyspnea, wheezing, worse with any exertional attempts with increasing fatigue and malaise with chronic cough with no significant productive sputum nor any fevers or chills prompting ED evaluation.? #1.? Acute Hypoxia secondary to Acute on chronic COPD exacerbation: Admitted to SD, maintain oxygen with currently requiring 2 to 3 L nasal cannula, will attempt de-escalation off as able however suspect may need to be discharged on home on supplementation, continue ATC duonebs, PRN albuterol, IV methylprednisolone, HOB, IS parameters, hold on abx therapy pending sputum Cx given no obvious evidence of infection, procalcitonin less than 0.04,, respiratory full viral panel negative. If sputum culture does return concerning we will add regimen as needed based on speciation/sensitivity. We will plan 11/26/2021 reassessment with oxygenation trial if clinically improved and appropriate for discharge as patient is eager. #2.? Hypertension, uncontrolled: Known history, has been off medications, initiated on low-dose lisinopril/hydrochlorothiazide given lower extremity complaints, BP improved, no obvious electrolyte disturbances, continue monitor, PRN IV hydralazine. #3.? Bilateral lower extremity peripheral edema: Patient with distal swelling, not markedly pitting, BNP is elevated 813.5, 11/26/2017 echocardiogram with EF 65%, trivial TVI, RVSP 38 mmHg with mild pulmonary hypertension but denies any significant weight gain or marked orthopnea prior to recent acute COPD exacerbation.? Maintained on lisinopril?hydrochlorothiazide low-dose regimen, continue to monitor.? 11/25/2021 lower extremity swelling completely resolved. #4.? Former alcohol abuse: Patient notes in the past she had drinking heavily, states that she rarely drinks these days and if she does it is extremely limited and only occasional.? We will obtain mag and [place] to be cautious.? If necessary may add CIWA protocol. #5.? Chronic constipation: Continue home bowel reigmen. #6.? Tobacco Abuse: Encouraged cessation, inpatient consultation per RT, NR if desired. #7.? GERD: Continue home PPI. #8.? VAIBHAV: Continue BiPAP nightly. #9.? Anxiety and depression: Not on any regimen, potentially associate with recent poor self-care including being off her medications for at least the last year, encourage counseling and PCP follow-up. #10.? Severe protein calorie malnutrition: Evidenced by significant muscle and fat wasting, cachectic appearance, BMI 18, nutrition consulted and following. #11.? DVT prophylaxis: SCDs, Lovenox. #12.? CODE STATUS: Full code. Charges/Coding Visit Charges Inpatient E&M: 78795 Subs Hosp L2
[2021-11-25 06:54] LABS: Differential Indicated SCAN CRITERIA MET
[2021-11-25 07:03] LABS: ALB/GLOB Ratio 1.1 RATIO (0.9-2.4); AST(SGOT) 18 U/L (15-37); Alanine Aminotransfer ALT/SGPT 13 U/L (13-56); Albumin, Serum 3.1 g/dL (3.2-5.0); Alkaline Phosphatase 26 U/L (45-117); Anion Gap 5 (5-15); BUN 13 mg/dL (7-18); BUN/Creat Ratio 20.9 RATIO (10-20); Calcium,Total 8.8 mg/dL (8.5-10.1); Chloride 98 mmol/L (98-107); Creatinine, Serum 0.62 mg/dL (0.55-1.02); EST Glomerular Filtration Rate 104 mL/min (>60); Est Glom Filt Rate - Afr Amer 125 mL/min (>60); Estimated Creatinine Clearance 80.78 ml/min; Globulin 2.8 g/dL (2.2-4.2); Glucose 120 mg/dL (74-106); Potassium 4.2 mmol/L (3.5-5.1); Protein, Total 5.9 g/dL (6.4-8.2); Sodium Level 137 mmol/L (136-145)
[2021-11-25 07:12] LABS: Differential Comment SCANNED
[2021-11-25] MEDS: Ipratropium/Albuterol Sulfate 3 ML AMPUL.NEB INHALATION ×4 (07:26→19:43)
[2021-11-25] MEDS: Acetaminophen 325 MG Tablet 650 MG PO (08:02)
[2021-11-25] MEDS: guaiFENesin 1,200 MG Tablet 1200 MG PO ×2 (08:12→21:57)
[2021-11-25] MEDS: Lisinopril 10 MG Tablet PO (08:12)
[2021-11-25] MEDS: Pantoprazole Sodium 20 MG Tablet PO (08:12)
[2021-11-25] MEDS: hydroCHLOROthiazide 12.5mg 12.5 MG PO (08:13)
[2021-11-25] MEDS: Enoxaparin 40 MG/0.4 ML Syringe SC (08:13)
--- NOTE | 2021-11-25 12:24 | CASEMGMT ---
Face to Face with patient for initial transition planning/care coordination assessment. ELIN FERNÁNDEZ introduced self and role at [facility], voices understanding. Care providers, pharmacy, and demographics verified. PCP: Dr. Lang Specialists: realtime captioner, neurologist, pain all at [facility]. Preferred Pharmacy: [facility] Insurance: [facility] Prescription Benefit: yes LNOK: mother, Ernestina, lives in [place] Living Arrangements: pt lives alone in a one floor apartment without steps to enter. pt states she is preparing to move to an apartment with the same set-up on 12/14. Pt states she has family around but they are scattered. Pt does not have any children. Pt is not sure how she will move her belongings but plans to ask for help. Pt states she sleeps in her lazy boy recliner. Pt reports to have falls at home but states she tries to slide down peng or fall forward onto her forehead. Pt prepares her own meals and completes household tasks but states she has difficulty performing these and could use assistance with these chores. Transportation: Pt drives and has her car here. DME: cane, [facility] but states they do not work and she is trying to get them to pick them up. Pt states she has a bipap or cpap machine but states she has not been wearing and may need a new mask. Pt thinks her machine was a part of the recall. Pt states she has a nebulizer machine but may need new mask and does not have any medicine for it. SNF/HH: pt denies any previous SNF or HH skilled services Plan: Pt plans to return home. Discussed possible referral to [facility]. pt agreeable and feels she would benefit from an aide. Will follow-up with [facility] regarding equipment concerns. will continue to follow and assist with DC needs as identified. David Ward RN CM
[2021-11-25] MEDS: 0.9% Saline Lock 10 ML Syringe IV ×2 (13:57→21:57)
[2021-11-25] MEDS: Mag Hydrox/Al Hydrox/Simeth 30 ML UDC PO (16:20)
[2021-11-25] MEDS: Polyethylene Glycol 3350 17 GM PACKET PO (17:50)
--- NOTE | 2021-11-25 18:15 | CASEMGMT ---
ELIN CM: Revisited pt and pt's mother at bedside. Discussed home O2 needs potentially at discharge. Pt's mom states she can bring in one of pt's portable O2 tanks for discharge. Pt states she received a letter from [facility] stating [facility] was no longer in-network with them. Reviewed on [facility] website and [employer] and [facility] are listed as DME providers. Informed pt of this. Pt agreeable to continuing with [facility] at discharge and aware can change to [facility] in the future if desires. Green sheet placed on chart with instructions to notify [employer] on-call class b truck driver to check pt's concentrator and bipap/cpap upon pt's return home. David Ward RN CM
--- NOTE | 2021-11-25 18:30 | CASEMGMT ---
Social Work Note Reason for Referral: Anxiety, Depression, [facility] SW in to speak with pt. SW introduced self and role at [facility]. Pt's mother Ernestina present in room. Pt gave permission for this worker to speak to her in front of guest. Ernestina states that she lives in [place] states she has lived there since December 2018. SW spoke with pt about [facility] and provided information. Pt is agreeable to referral being made to [facility]. SW informed pt that this worker will send referral. SW spoke with pt about Anxiety and Depression. Pt states that she has been diagnosed with Anxiety and Depression. Pt states that she also has Agoraphobia. Pt states that she does not like to leave her house. Pt states she also has Vertigo and Dizziness and that also makes her not want to leave her house. Pt states she does not drive when she gets Vertigo or Dizzy. Pt states that she was seeing Dr. Mathew (SP?) through [facility] in [place]. Pt states she was seeing Dr. Mathew 1x a month but then COVID hit and she was afraid and didn't know where to go. Pt denied currently receiving any Mental Health Services. SW spoke with pt about how it may be beneficial to get linked up again with Mental Health Services. Pt agrees. Pt states that she has been thinking about getting linked back up with [facility]. SW offered to make an appointment for pt and pt denied, stating she will make her own appointment. Pt states that she is able to calm her self down and sometimes will take half dose Benadryl. SW spoke with pt about getting pt linked back up with [facility] could provide pt with Psychiatry, counseling, therapy, et. Pt states understanding, again states she will call and make an appointment herself. Pt states that she is living apartments. Pt denied any current suicidal/homicidal thoughts/plans/ideations. Pt denied additional needs or concerns at this time. SW did provide pt with Mental Health Counseling Agencies list. Referral faxed to [facility]. Pattie Salgado MANAGER OF TRANSPORTATION, [employer]
[2021-11-26] VITALS (8 sets, daily range): BP systolic 103–107; BP diastolic 74–83; PULSE 88–94; RESP 16–18; TEMP 36.8–37.5; O2SAT 87–96
[2021-11-26] MEDS: 0.9% Saline Lock 10 ML Syringe IV (05:52)
[2021-11-26 06:18] LABS: Absolute Neutrophil Count 7.6 X10^3/uL (2.0-7.7); Basophil# 0.01 X10^3/uL; Basophil% 0.1 % (0-1); Hemoglobin 14.1 g/dL (12.0-15.0); Lymphocyte % 5.8 % (19-41); Mean Corpuscular Hgb 30.2 pg (27.0-32.0); Mean Corpuscular Volume 100.6 fL (81-99); Mean Platelet Vol. 10.9 fl (6.2-12.0); Monocyte% 5.8 % (0-10); NRBC Flagged by Analyzer 0 % (0-5); Neutrophil # 7.62 X10^3/uL (2.7-7.7); Neutrophil % 87.8 % (47-70); POSITIVE COUNT YES; POSITIVE DIFFERENTIAL YES; Platelet Count 78 K/mm3 (150-450); RBC Distribution Width CV 13.3 % (11.6-14.6); RBC Distribution Width SD 49.2 fl (35.1-43.9); Red Blood Count 4.67 M/mm3 (4.2-5.4); White Blood Count 8.7 K/mm3 (4.4-11.0)
[2021-11-26 06:23] LABS: Differential Indicated SCAN CRITERIA MET
[2021-11-26 06:35] LABS: Anisocytosis 1+; Differential Comment SCANNED; Macrocytosis 1+; Platelet Estimate SLT DEC (ADEQ)
[2021-11-26 07:44] LABS: ALB/GLOB Ratio 1.1 RATIO (0.9-2.4); AST(SGOT) 19 U/L (15-37); Alanine Aminotransfer ALT/SGPT 12 U/L (13-56); Albumin, Serum 3.1 g/dL (3.2-5.0); Alkaline Phosphatase 29 U/L (45-117); Anion Gap 3 (5-15); BUN 22 mg/dL (7-18); BUN/Creat Ratio 30.4 RATIO (10-20); Chloride 97 mmol/L (98-107); Creatinine, Serum 0.72 mg/dL (0.55-1.02); EST Glomerular Filtration Rate 87 mL/min (>60); Est Glom Filt Rate - Afr Amer 105 mL/min (>60); Estimated Creatinine Clearance 72.54 ml/min; Globulin 2.7 g/dL (2.2-4.2); Glucose 144 mg/dL (74-106); Potassium 4.5 mmol/L (3.5-5.1); Protein, Total 5.8 g/dL (6.4-8.2); Sodium Level 137 mmol/L (136-145)
[2021-11-26] MEDS: Lisinopril 10 MG Tablet PO (08:41)
[2021-11-26] MEDS: guaiFENesin 1,200 MG Tablet 1200 MG PO (08:41)
[2021-11-26] MEDS: hydroCHLOROthiazide 12.5mg 12.5 MG PO (08:42)
[2021-11-26] MEDS: Pantoprazole Sodium 20 MG Tablet PO (08:42)
[2021-11-26] MEDS: Enoxaparin 40 MG/0.4 ML Syringe SC (08:43)
--- NOTE | 2021-11-26 10:44 | DS.PCM_ITS ---
Providers Date of Admission: 11/24/21 Date of Discharge: 11/26/21 Primary Care Physician: Dr. Jose Carlos Lang MD Reason For Visit: HYPOXIA, COPD EXACERBATION Diagnosis Discharge Diagnosis (1) COPD with acute exacerbation: Status: Acute Code(s): J44.1 - Chronic obstructive pulmonary disease with (acute) exacerbation Medications at Discharge Home Medications lansoprazole 15 mg capsule,delayed release 15 mg PO DAILY 11/24/21 polyethylene glycol 3350 17 gram/dose oral powder (Miralax) 17 g PO BID PRN PRN Constipation 11/24/21 albuterol sulfate 2.5 mg/3 mL (0.083 %) solution for nebulization 2.5 mg (3 mL) inhalation Q2H PRN PRN Dyspnea, wheezing 2 weeks #180 mL 11/26/21 guaifenesin 1,200 mg tablet, extended release 12 hr (Mucus Relief ER) 1,200 mg PO BID 14 days #28 tabs 11/26/21 ipratropium 0.5 mg-albuterol 3 mg (2.5 mg base)/3 mL nebulization soln 3 ml inhalation Q4HWA.RT COPD, exacerbation, hypoxia 2 weeks #180 mL 11/26/21 lisinopril 10 mg-hydrochlorothiazide 12.5 mg tablet 1 tab PO DAILY 30 days #30 tabs 11/26/21 nebulizer accessories #1 ea 11/26/21 prednisone 10 mg tablet See Taper PO DAILY #30 tabs 11/26/21 Hospital Course Operations None Procedures EKG Summary of Care Provided Minutes Spent on Discharge: 35 Hospital Course: ATTENDING PHYSICIAN DISCHARGE NOTE: Discharge Diagnoses: #1.? Acute Hypoxia secondary to Acute on chronic COPD exacerbation #2.? Hypertension, uncontrolled #3.? Bilateral lower extremity peripheral edema, resolves with elevation #4.? Former alcohol abuse #5.? Chronic constipation #6.? Tobacco Abuse #7.? GERD #8.? VAIBHAV #9.? Anxiety and depression #10.? Severe protein calorie malnutrition Discharge Summary: The patient is a 61 y/o F w/ PMHx: COPD with ongoing Tobacco use, HTN, Chronic constipation, Hx prior EtOH abuse who presented to the [facility] ED on 11/24/21 with history of being off of her medications for various reasons over the last at least a year including her COPD medications, hypertensive medications with several day history of progressively worsening dyspnea, wheezing, worse with any exertional attempts with increasing fatigue and malaise with chronic cough with no significant productive sputum nor any fevers or chills prompting ED evaluation.?Admitted to [place], oxygenation trail performed and patient noted to be hypoxia at rest off oxygen with 2L NC to achieve 88% and required up to 3L NC to exert to remain 88% or above, maintained on ATC duonebs, PRN albuterol, IV methylprednisolone w prednisone taper transition at discharge, encouraged HOB, IS parameters, held on abx therapy given no obvious evidence of infection, procalcitonin less than 0.04, respiratory full viral panel negative, rapid covid negative.?During the admission, patient also noted not having been on her HTN medication with restart low dose lisinopril-HCTZ with improved BP control and completely resolved mild LE pedal edema. 11/26/2017 echocardiogram with EF 65%, trivial TVI, RVSP 38 mmHg with mild pulmonary hypertension but denies any significant weight gain or marked orthopnea prior to recent acute COPD exacerbation.? Maintained on lisinopril?hydrochlorothiazide low-dose regimen, continue to monitor.? 11/25/2021 lower extremity swelling completely resolved. Patient records with prior EtOH abuse history noted which was discussed and she reported upon presentation rarely drinking for the last several months. Patient with history of anxiety and depression but not on med ication. Recommended given her recent decisions for poor self care to consider early follow-up for counseling as this could contribute to these types of decisions. Patient during admission was extremely irritated with care and expressed several times her choice upon discharge which she specifically specified had to be 11/26/2021 to be off oxygen regardless of her oxygen needs. Patient oxygenation trial significantly demonstrated hypoxia without usage and this was discussed as well as the potential risk for her to cause harm to other individuals or herself without using oxygen as she noted intention despite against recommendations to drive her self. Given several concerns for her ability to maintain safety for self and for others as literally stated I do not care if I pass out while I am driving because of [hypoxia] following discussions with security at the hospital did discuss her case with dispatch noted and intention to visit the patient and discussed importance of using senior medical billing specialist, oxygen therapy especially while driving. Given these concerning statements security was contacted and dispatch reported to discuss these safety concerns with the patient. Patient's mother was also contacted and noted this behavioral is unfortunately expected and she noted intention to assist and contact her daughter and encourage usage of the oxygen and that she would herself come and pick her up and drive her home. Again, relayed all these concerns and plans of care to supervisor rod placing/Patient primary staff combat information center officer and dispatch. Discharge Time: > 35 Minutes DAY OF DISCHARGE PROGRESS NOTE: Subjective: Patient clinically improved with aerosols and steroids and noted improvement in breathing and less wheezing. Patient did have oxygenation and trial that specifically demonstrated 93% on room air at rest, 87% on room air with any ambulation or activity attempts with increased to 3 L to maintain greater than 88% with activity. Patient denies fever, chills, nausea, emesis, abdominal pain, chest pain. Patient again reporting her intention to leave off of oxygen because she deems it bothersome to use. She also again confirmed intention to drive herself home regardless. Lengthy discussions regarding importance of oxygen usage and that it is hospital policy she not drive herself home were again undertaken. She made no comments further after this until later in the day of note. Recommended she re-establish with her PCP as she has not been seen during COVID. Objective: T98.2, heart rate 93, BP 103/74, respiratory rate 18, 94% on 2 L nasal cannula. Physical Examination: General: awake, alert, oriented x 3 and cooperative, seated upright in medical surgical bed, extremely irritated with discussions, breathing with ease, no evidence of any respiratory distress Skin: normal color, turgor, no icterus, cyanosis. HEENT: AT/NC, EOMI, PERRLA, MMM. Lungs: Allows examination, diminished but moving air better than day prior, no respiratory distress, no accessory muscle usage, no rales, ronchi or wheezing; Heart: Currently regular rate and rhythm; no gallop, rub audible. Abdomen: soft, thin cachectic habitus NTTP, ND, distant bowel sounds Extremities: no cyanosis, clubbing, or edema. Neurological: patient awake, alert, oriented as noted, cognitive function appears intact upon questioning,; pupils equally reactive to light and accomodation; cranial nerves II-XII grossly normal, moving all 4 extremities, strength improved especially since initial evaluation, mildly to moderately global decreased although difficult as intermittently agitated with evaluation. Psychiatric: affect appears irritable, does have underlying anxiety and depression. Assessment and Plan: Please see hospital summary above. Medical Records Data Medical Nutrition Assessment Dietitian: Malnutrition Criteria Met Start: 11/25/21 12:08 Freq: Status: Active Protocol: Document 11/25/21 12:08 CHAPARRITA (Rec: 11/25/21 12:08 CHAPARRITA [id number]) Nutrition Malnutrition Evidence of Malnutrition Exists Yes Malnutrition (moderate): Chronic Evidenced By Suboptimal Energy Intake ( Moderate),Physical Changes ( Severe) Clinical Problem Chronic Disease or Condition Related Malnutrition Etiology severe related to issues with resp failure/COPD and pt inability to consume adequate nutrition to meet increased nutritional needs Signs/Symptoms as evidenced by +fat/muscle wasting - arms/legs, clavicle, acromium process, orbital/ temporal/buccal areas and pt consuming <50% of eat nutritional needs. Status Active Problem Recommendation Dietitian Recommendations/Changes Will liberalize diet to Regular d/t signs and symptoms of malnutrition Will order ensure enlive 120 ml 4x/day w/ medpass - pt prefers vanilla Weight / BMI Weight Weight: 123 lb 7.342 oz Body Mass Index (BMI) 18.6 ABG / Lab / Microbiology Data Result Diagrams: 11/26/21 06:07 11/26/21 06:07 Laboratory: Laboratory Results - last 24 hr 11/26/21 06:07: WBC 8.7, RBC 4.67, Hgb 14.1, Hct 47.0, MCV 100.6 H, MCH 30.2, MCHC 30.0 L, RDW Std Deviation 49.2 H, RDW Coeff of Sarah 13.3, Plt Count 78 L, MPV 10.9, Immature Gran % (Auto) 0.500, Neut % (Auto) 87.8 H, Lymph % (Auto) 5.8 L, [place] % (Auto) 5.8, Eos % (Auto) 0.0, Baso % (Auto) 0.1, Absolute Neuts (auto) 7.6, Absolute Lymphs (auto) 0.50 L, Nucleated RBC % 0, Differential Comment SCANNED, Platelet Estimate SLT DEC, Anisocytosis 1+, Macrocytosis 1+ 11/26/21 06:07: Sodium 137, Potassium 4.5, Chloride 97 L, Carbon Dioxide 37.0 H, Anion Gap 3 L, BUN 22 H, Creatinine 0.72, Estim Creat Clear Calc 72.54, Est GFR (MDRD) Af Amer 105, Est GFR (MDRD) Non-Af 87, BUN/Creatinine Ratio 30.4 H, Glucose 144 H, Calcium 9.0, Total Bilirubin 0.50, AST 19, ALT 12 L, Alkaline Phosphatase 29 L, Total Protein 5.8 L, Albumin 3.1 L, Globulin 2.7, Albumin/Globulin Ratio 1.1 Microbiology: Microbiology 11/25/21 10:30 Sputum, Expectorated/Coughed Gram Stain - Final 11/25/21 10:30 Sputum, Expectorated/Coughed Respiratory Culture - Preliminary Appears to be normal respiratory mariana. Further studies to follow. 11/24/21 20:22 Interface Orders Respiratory Panel (PCR) - Final 11/24/21 17:23 Nasal Secretion SARS-CoV-2 & FLU Antigen (Rapid) - Final D/C Instructions Discharge Diet: No restrictions May resume sexual activity in: 10-14 days Weight Bearing Status: Weight bearing as tolerated Call your doctor if you observe: Fever of 101 or Higher, Numbness or Tingling, Shortness of breath, Dizziness, Chest pain, Increased palpitations (irregular heartbeat) and Uncontrolled pain Meaningful Use Info Meaningful Use Diagnoses (Choose all that apply): None applicable Discharge Plan Admission Admit Date/Time: 11/24/21 18:39 Primary Reason for Your Visit: Acute COPD Exacerbation, Hypoxia Attending Provider: Fatoumata Khanna Primary Care Provider: Jose Carlos Lang Instructions Patient Instructions: Understanding Oxygen Therapy, Traveling with Oxygen, COPD Quit Smoking, Discharge Instructions: COPD, Using an Oxygen Tank at Home, Oxygen Supplemental, Nebulizer with a Mask Steps, ED COPD Flare Additional Instructions / Restrictions: ADDITIONAL DISCHARGE INSTRUCTIONS: Hypertension: During the admission you had notable hypertension and blood pressure medications were started. Please continue these and have follow-up blood pressure re-assessment for consideration any additional medication changes with your primary care. Please also have follow-up basic metabolic panel with your primary care to assure you have appropriate renal function and electrolytes with this new medication start. COPD Exacerbation with hypoxia (low oxygen): Please continue the scheduled duoneb aerosols with as needed albuerol if you notice increased wheezing or shortness of breath. Please complete the steroid taper as this will help calm your airways and assist with resolution of the exacerbation itself. During the admission you requirement oxygen supplementation to maintain appropriate oxygen levels both at rest and even moreso with exertion. Please continue oxygen supplementation until re-evaluation by your primary care and medically appropriately weaned off. We strongly advise tobacco cessation. Discharge Orders/Prescriptions Prescriptions: New ipratropium-albuterol 0.5 mg-3 mg(2.5 mg base)/3 mL Solution For Nebulization 3 ml inhalation Q4HWA.RT 14 Days Qty: 180 0RF albuterol sulfate 2.5 mg /3 mL (0.083 %) Solution For Nebulization 2.5 mg inhalation Q2H PRN PRN (Reason: Dyspnea, wheezing) 14 Days Qty: 180 0RF Mucus Relief ER 1,200 mg Tablet Extended Release 12hr 1,200 mg PO BID 14 Days Qty: 28 0RF lisinopril-hydrochlorothiazide 10-12.5 mg tablet 1 tab PO DAILY 30 Days Qty: 30 0RF prednisone 10 mg tablet See Taper PO DAILY Qty: 30 0RF Taper: Prednisone Taper 40 mg DAILY for 3 Days and 0 Hour 30 mg DAILY for 3 Days and 0 Hour 20 mg DAILY for 3 Days and 0 Hour 10 mg DAILY for 3 Days and 0 Hour (DME) nebulizer accessories Kit See Rx Instructions .Route Qty: 1 0RF Rx Instructions: As directed Continued lansoprazole 15 mg Capsule,Delayed Release(Dr/Ec) 15 mg PO DAILY polyethylene glycol 3350 [Miralax] 17 gram/dose powder 17 g PO BID PRN PRN (Reason: Constipation) Referrals / Follow Up: Jose Carlos Lang MD [Primary Care Provider] - (Follow-up within 3-5 days to review admission and address resumption of chronic medications.) Disposition Disposition (needs filled in before D/C Order can be placed): Home Health Service Charges/Coding Visit Charges Inpatient E&M: 75188 Disch Hosp
[2021-11-26] MEDS: Ipratropium/Albuterol Sulfate 3 ML AMPUL.NEB INHALATION (11:15)
--- NOTE | 2021-11-26 11:40 | CASEMGMT ---
ELIN FRENÁNDEZ NOTE: Call received from ELIN Montemayor/charge nurse. Pt discharging home today and qualifies for O2 @ 3l/m w/exertion. Pt's current home O2 orders unable to be verified w/[employer] on the weekend. Albina instructed to fax new script for home O2 to [facility], so they can update current O2 order, if different than previous order. Albina also informed ELIN FERNÁNDEZ that pt states her concentrator is not working. Noted ELIN Jeffries documented green sheet is on chart for [facility] to be notified of same. This RN JOLENE placed call to [facility] and spoke w/Leandro, the weekend delivery chitra. He was made aware pt states concentrator not working. He states they are aware of this and have been attempting to contact pt for the past 3 weeks and have been unable to reach her. Leandro made aware pt is discharging home today. He states he has attempted to contact pt on her cell phone and in her hospital room today without success and has left a VM on her cell phone. He states he was able to reach pt's mom, but is awaiting a call back from pt to discuss making arrangements @ pt's home to either service pt's concentrator or provide a new one to her today. ELIN FERNÁNDEZ spoke w/pt's RN, Octavia, and she was made aware of the above. Per Octavia, she spoke w/pt today and made her aware [employer] is attempting to contact her. Per Octavia, pt refuses to talk w/anyone from [facility] today. Leandro made aware. He states they will attempt to contact pt again this week. Leandro also made aware of request for BIPAP/CPAP also to be checked. He states he will inform a qualified clinician @ [facility] of same. ELIN Farah/charge, aware pt to be provided w/portable O2 tank from hospital supply to go home on, it pt's mother unable to bring in pt's portable O2 tank from home . Per Sofi, but will also need a nebulizer. Per ELIN Jeffries CM note pt has a nebulizer, but needs a new mask. Noted Dr Khanna sent a rx to pt's pharmacy for nebulizer accessories. Albina also to provide a script to pt for nebulizer accessories, in case pt's insurance requires this to be obtained from a DME co. Anjali TARANGON RN CM
--- NOTE | 2021-11-26 13:45 | NURSING ---
Addendum entered by Octavia Diehl 11/26/21 14:49: patient now willing to DC home with O2 after speaking with mom and PD. reviewed instructions for home O2 with patient. [facility] will be contacting patient to set-up tanks at home as well. pt verifies understanding. patients mother is picking up new RXs for patient as well. pt denies other needs. discharging home on O2 @ 3L NC to private vehicle. Original Note: discharge instructions reviewed with patient. patient prescribed O2 for home d/t failed walking O2 trial. patient refusing to take O2 tank with her at discharge. patient states she does not want to deal with all that at home and thought she made herself clear with the doctor. patient made aware of new RX for nebulizer machine and treatments. patient states has a nebulizer machine, but would need the mask. this RN cleaned and packed the nebulizer mask she used here. [facility] will contact patient--pt immediately became irritated with this RN, stating she will contact them as she doesn't want anyone coming over tonight. reiterated again that [facility] is supplying O2 and nebulizer equipment, patient states she will contact them. patient states has O2 at home if needed, but doesn't want to take home tank with her at this time. reinforced with the patient that her O2 sat on room air was 88-89% on room air. reviewed normal level of O2 sats/importance of oxygenation for body--pt verifies understanding, but continues to be resistant to further O2 treatment at this time. reviewed new prescriptions with patient and when medications would need taken again. patient states she could have her mom picker machine operator prescriptions for her today or tomorrow. this RN urged patient to get prescriptions filled today because nebulizers ordered Q4H and prn. patient states she plans on driving home and just being alone tonight. RN offered to call mom to have prescriptions picked up for patient, but pt refused. she does not want to bother her. pt getting dressed at this time for discharge home.
--- NOTE | 2021-11-26 16:18 | NURSING ---
Alesha at [facility] called to notify of patient discharge. RX faxed to [facility] per mark Jane RN. home with portable O2 tank at 3L NC.
[2021-11-28 07:20] LABS: Pathologist Review Reviewed
== END 2021-11-26 14:50 | disposition home health service (06) | DRG 140 ==
LOC: ED 18:53 → MS3 19:13
PROVIDERS: Nurse Practitioner; Admitting Provider Family Medicine; Emergency Provider Emergency Medicine; PCP Family Medicine; Visit Provider Family Medicine
DX: J44.1 Chronic obstructive pulmonary disease with (acute) exacerbation (principal); E43 Unspecified severe protein-calorie malnutrition; I27.20 Pulmonary hypertension, unspecified; R62.7 Adult failure to thrive; F31.9 Bipolar disorder, unspecified; K59.09 Other constipation; F41.9 Anxiety disorder, unspecified; K21.9 Gastro-esophageal reflux disease without esophagitis; I10 Essential (primary) hypertension; G47.33 Obstructive sleep apnea (adult) (pediatric); F17.210 Nicotine dependence, cigarettes, uncomplicated; R09.02 Hypoxemia; R60.0 Localized edema; Z20.822 Contact with and (suspected) exposure to COVID-19; Z91.19 Patient's noncompliance with other medical treatment and regimen; Z68.1 Body mass index [BMI] 19.9 or less, adult
CPT/HCPCS: 36415; 71045; 80048; 80053; 83735; 83880; 84100; 84145; 84484; 85025; 87070; 87205; 87428; 87633; 93005; 94640; 94667; 94668; 94762; 97802; 99251; 99285; 99406; A4216; G0463

== ENCOUNTER 2021-12-16 14:11 | Emergency (ER) | payer MEDICAID, SELFPAY ==
[2021-12-16 14:13] VITALS: BP 125/92; PULSE 92; RESP 16; TEMP 36.5; O2SAT 96; BMI 17.2
--- NOTE | 2021-12-16 14:37 | ED.VIS.BACK ---
HPI History of Present Illness Chief Complaint: Back Detail of Chief Complaint: Bilateral low back pain Informant: patient Onset/Context/Timing Onset: Yesterday Context: Sudden Onset Injury: lifting and bending Timing: Continuous Quality: Dull and Aching Location: Lumbar (Bilateral low back) Current Severity: Mild Maximum Severity: Severe Worsened by: improves with Movement, Ambulation, Bending and Lifting Relieved by: Nothing Associated Symptoms Associated Symptoms: Negative for Numbness, Tingling, Radiation to Right Leg, Radiation to Left Leg or Fever Narrative Narrative: Patient is a 61-year-old woman who presents with bilateral back pain. 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 She denies bowel bladder function. No saddle paresthesia anesthesia. She denies radicular pain. Denies foot drop. She has buckling of her knees going up and down steps. She denies fever, chills night sweats. She denies any significant back problems. Prior similar symptoms: No Recent Illness/Hospitalization: No PFSH PFSH Medical History Anxiety Asthma Bipolar disorder COPD (chronic obstructive pulmonary disease) CPAP (continuous positive airway pressure) dependence Depression GERD (gastroesophageal reflux disease) HTN (hypertension) Migraines Sleep apnea Smoker Home Medications lansoprazole 15 mg capsule,delayed release 15 mg PO DAILY 11/24/21 [History Last Taken 11/24/21] polyethylene glycol 3350 17 gram/dose oral powder (Miralax) 17 g PO BID PRN PRN Constipation 11/24/21 [History Last Taken Unknown] albuterol sulfate 2.5 mg/3 mL (0.083 %) solution for nebulization 2.5 mg (3 mL) inhalation Q2H PRN PRN Dyspnea, wheezing 2 weeks #180 mL 11/26/21 [Rx Last Taken Unknown] guaifenesin 1,200 mg tablet, extended release 12 hr (Mucus Relief ER) 1,200 mg PO BID 14 days #28 tabs 11/26/21 [Rx Last Taken Unknown] ipratropium 0.5 mg-albuterol 3 mg (2.5 mg base)/3 mL nebulization soln 3 ml inhalation Q4HWA.RT COPD, exacerbation, hypoxia 2 weeks #180 mL 11/26/21 [Rx Last Taken Unknown] lisinopril 10 mg-hydrochlorothiazide 12.5 mg tablet 1 tab PO DAILY 30 days #30 tabs 11/26/21 [Rx Last Taken Unknown] nebulizer accessories #1 ea 11/26/21 [Rx Last Taken Unknown] prednisone 10 mg tablet See Taper PO DAILY #30 tabs 11/26/21 [Rx Last Taken Unknown] hydrocodone-acetaminophen 5-325mg 5mg-325mg 1 tab PO Q6H PRN PRN Pain 3 days #10 TABLETS 12/16/21 [Rx Last Taken Unknown] naproxen 500 mg tablet 500 mg PO BID #10 tabs 12/16/21 [Rx Last Taken Unknown] Allergy/AdvReac Type Severity Reaction Status Date / Time Latex, Natural Rubber Allergy Rash Verified 12/16/21 14:12 Sulfa (Sulfonamide Allergy Other Verified 12/16/21 14:12 Antibiotics) Family History Mother Heart disease Father Heart disease Surgical History H/O shoulder surgery History of cholecystectomy History of tonsillectomy Social History household members: none Smoking Status: Current every day smoker tobacco type: cigarettes alcohol intake: former details: Reports prior heavy EtOH abuse, notes she does not drink routinely, vague. substance use type: does not use ROS ROS ED Constitutional Constitutional ED: Denies chills, fever(s), subjective, sweats or weight loss ENT ENT ED: Denies ear pain, rhinorrhea or sore throat Cardiovascular Cardiovascular: Denies chest pain, orthopnea, palpitations or paroxysmal nocturnal dyspnea Respiratory/Chest Respiratory/Chest: Denies dyspnea, dyspnea on exertion, orthopnea or paroxysmal nocturnal dyspnea Gastrointestinal Gastrointestinal: Reports other Details: Past history of upper GI bleed, remote ; Denies abdominal pain, constipation, melena, nausea or vomiting Genitourinary Genitourinary ED: Denies dysuria, hematuria or urinary frequency Musculoskeletal Musculoskeletal: Reports back pain; Denies arthralgias, myalgias or neck pain Integumentary Denies abscess, Abrasions or rash Neurologic Neurologic: Denies paresthesias or weakness Hematologic/Lymphatic Hematologic/Lymphatic: Denies easy bleeding or easy bruising EXAM Physical Exam Const Vital Signs: 12/16/21 14:13 Temperature 97.7 F L Temperature Source Temporal Pulse Rate 92 Respiratory Rate 16 Blood Pressure 125/92 H Blood Pressure Mean 103 Pulse Ox 96 Oxygen Delivery Method Room Air Negative for well nourished, well developed or cachectic Constitutional Narrative: Appears uncomfortable sitting in a chair and has significant discomfort moving from chair to examination cot. General Appearance ED: Negative for well developed, cachectic or pallor Nutritional Appearance: Negative for cachectic HEENT Reports dry mucous membranes HEENT Narrative: Head is atraumatic no cephalic. Ears normal. Nares patent. Mucosa moist. Mouth ED: Yes dry mucous membranes Mouth: dry mucous membranes Eyes PERRL and EOMs intact bilaterally General Eye ED: Negative for pale conjunctiva or scleral icterus Neck no lymphadenopathy, supple and no JVD Resp normal respiratory effort and clear to auscultation bilaterally Cardio regular rate, regular rhythm, S1 normal heart sound, S2 normal heart sound and no murmurs GI normal to inspection, nondistended, normoactive bowel sounds, soft to palpation, non-tender, non-distended and no masses GI Narrative: There is no palp pulsatile mass or abdominal bruit. Back/Spine normal to inspection; Negative for no thoracic nor lumbar tenderness Back/Spine Narrative: Leg test is negative. Patella and ankle reflexes 3+ and symmetric. EHL intact. Normal sensation over L3-S1 dermatome. DP and PT pulse are palpable. 5/5 strength with plantar dorsiflexion of the foot. Patient unable to perform 1 legged squat because of pain. She has normal sensation in the buttocks. She has reproducible low back pain. There is no evidence of trauma to the back. General Back: Negative for CVA tenderness Cervical Spine: Negative for cervical spine tenderness Lumbar Spine / Lower Back: ROM limited and straight leg raise negative bilaterally Extremity normal to inspection and no clubbing, cyanosis or edema General Extremety ED: Negative for edema General Extremity: Negative for edema Neuro oriented x3 and no sensory deficits noted Sensorium / Orientation: alert Motor Exam: strength 5/5 throughout Deep Tendon Reflexes: Rt Patellar (L4): 3+, Lt Patellar (L4): 3+, Rt Ankle (S1): 3+ and Lt Ankle (S1): 3+ Deep Tendon Reflexes Back: Rt Patellar (L4): 3+, Lt Patellar (L4): 3+, Rt Ankle (S1): 3+ and Lt Ankle (S1): 3+ Plantar Reflex: Downgoing: bilateral (No clonus.) Psych mental status grossly normal Skin no rashes or lesions noted and no wounds General Skin Exam: Negative for jaundice or pallor MDM MDM MDM Narrative Medical decision making narrative: Patient's history and physical exam is consistent with muscular low back pain. She was treated with lidocaine patch and opiate analgesia. She was discharged to home Discharge Plan Triage Chief Complaint: Back ED Provider: Jerardo Ellison Dx/Rx/DC Orders Clinical Impression: Acute bilateral low back pain Instructions: ED Back Pain (Acute or Chronic), ED Back Spasm, No Trauma Prescriptions: New hydrocodone-acetaminophen [hydrocodone-acetaminophen] 5-325 mg tablet 1 tab PO Q6H PRN PRN (Reason: Pain) 3 Days Qty: 10 0RF naproxen 500 mg tablet 500 mg PO BID Qty: 10 0RF No Action lansoprazole 15 mg Capsule,Delayed Release(Dr/Ec) 15 mg PO DAILY polyethylene glycol 3350 [Miralax] 17 gram/dose powder 17 g PO BID PRN PRN (Reason: Constipation) ipratropium-albuterol 0.5 mg-3 mg(2.5 mg base)/3 mL Solution For Nebulization 3 ml inhalation Q4HWA.RT 14 Days Qty: 180 0RF albuterol sulfate 2.5 mg /3 mL (0.083 %) Solution For Nebulization 2.5 mg inhalation Q2H PRN PRN (Reason: Dyspnea, wheezing) 14 Days Qty: 180 0RF Mucus Relief ER 1,200 mg Tablet Extended Release 12hr 1,200 mg PO BID 14 Days Qty: 28 0RF lisinopril-hydrochlorothiazide 10-12.5 mg tablet 1 tab PO DAILY 30 Days Qty: 30 0RF prednisone 10 mg tablet See Taper PO DAILY Qty: 30 0RF Taper: Prednisone Taper 40 mg DAILY for 3 Days and 0 Hour 30 mg DAILY for 3 Days and 0 Hour 20 mg DAILY for 3 Days and 0 Hour 10 mg DAILY for 3 Days and 0 Hour (DME) nebulizer accessories Kit See Rx Instructions .Route Qty: 1 0RF Rx Instructions: As directed Primary Care Provider: Jose Carlos Lang Referrals: Jose Carlos Lang MD [Primary Care Provider] - Activity Restrictions/Additional Instructions: 1. Discontinue taking Flexeril/Norflex 2. Apply ice 6-10 times a day for the next 3 to 5 days 3. If you are unable to urinate, loss of bowel control or develop weakness in your legs return to the emergency department Disposition Disposition: Home, Self Care
[2021-12-16] MEDS: Naproxen 250 MG Tablet PO (15:09)
[2021-12-16] MEDS: HYDROcodone Bitartrate/Apap 5/325 Tablet PO (15:09)
[2021-12-16] MEDS: Lidocaine 5% Patch 1 PATCH TOPICAL (15:10)
== END 2021-12-16 15:14 | disposition home or self-care (01) ==
PROVIDERS: Emergency Provider Emergency Medicine; PCP Family Medicine; Visit Provider Emergency Medicine
DX: M54.50 Low back pain, unspecified (principal); J44.9 Chronic obstructive pulmonary disease, unspecified; I10 Essential (primary) hypertension; F17.210 Nicotine dependence, cigarettes, uncomplicated; Z79.899 Other long term (current) drug therapy
CPT/HCPCS: 99283

== ENCOUNTER 2021-12-20 19:30 | Emergency (ER) | payer MEDICAID, SELFPAY ==
[2021-12-20 19:31] VITALS: BP 105/84; PULSE 93; RESP 18; TEMP 36.6; O2SAT 95; BMI 17.4
--- NOTE | 2021-12-20 21:33 | ED.VIS.BACK ---
HPI History of Present Illness Chief Complaint: Back Informant: patient Narrative Narrative: Patient presents with lower back pain. She states it favors the right side. It has been going on for years. She really has not seen her primary physician for this but has an appointment. She did see [facility] outpatient and was referred to pain management but has not made calls to initiate that. She states she did lift something heavy last Saturday. She was seen here Saturday. She was told to stop the Flexeril she was on. She was placed on Naprosyn which she cannot take because it bothers her stomach. She was also placed on hydrocodone. She states the hydrocodone did help but she is out of it. She does also have some constipation. This is a chronic problem. I explained that she needs to take stool softeners while she is on hydrocodone. She is still moving her bowels but they are slow. No nausea vomiting or abdominal pain. She has no urinary complaints. She has no distal numbness tingling weakness. No sensory changes at all. No fevers or chills. The only recent trauma is lifting but no fall or impact. Although she is quite thin she denies recent acute weight loss. She feels better sitting and worse with standing. PFSH PFSH Medical History Anxiety Asthma Bipolar disorder COPD (chronic obstructive pulmonary disease) CPAP (continuous positive airway pressure) dependence Depression GERD (gastroesophageal reflux disease) HTN (hypertension) Migraines Sleep apnea Smoker Home Medications lansoprazole 15 mg capsule,delayed release 15 mg PO DAILY 11/24/21 [History Last Taken 11/24/21] polyethylene glycol 3350 17 gram/dose oral powder (Miralax) 17 g PO BID PRN PRN Constipation 11/24/21 [History Last Taken Unknown] albuterol sulfate 2.5 mg/3 mL (0.083 %) solution for nebulization 2.5 mg (3 mL) inhalation Q2H PRN PRN Dyspnea, wheezing 2 weeks #180 mL 11/26/21 [Rx Last Taken Unknown] guaifenesin 1,200 mg tablet, extended release 12 hr (Mucus Relief ER) 1,200 mg PO BID 14 days #28 tabs 11/26/21 [Rx Last Taken Unknown] ipratropium 0.5 mg-albuterol 3 mg (2.5 mg base)/3 mL nebulization soln 3 ml inhalation Q4HWA.RT COPD, exacerbation, hypoxia 2 weeks #180 mL 11/26/21 [Rx Last Taken Unknown] lisinopril 10 mg-hydrochlorothiazide 12.5 mg tablet 1 tab PO DAILY 30 days #30 tabs 11/26/21 [Rx Last Taken Unknown] nebulizer accessories #1 ea 11/26/21 [Rx Last Taken Unknown] prednisone 10 mg tablet See Taper PO DAILY #30 tabs 11/26/21 [Rx Last Taken Unknown] hydrocodone-acetaminophen 5-325mg 5mg-325mg 1 tab PO Q6H PRN PRN Pain 3 days #10 TABLETS 12/16/21 [Rx Last Taken Unknown] naproxen 500 mg tablet 500 mg PO BID #10 tabs 12/16/21 [Rx Last Taken Unknown] hydrocodone-acetaminophen 5-325mg 5mg-325mg 1 tab PO Q6H PRN pain 3 days #10 tabs 12/20/21 [Rx Last Taken Unknown] Allergy/AdvReac Type Severity Reaction Status Date / Time Latex, Natural Rubber Allergy Rash Verified 12/20/21 19:34 Sulfa (Sulfonamide Allergy Other Verified 12/20/21 19:34 Antibiotics) Family History Mother Heart disease Father Heart disease Surgical History H/O shoulder surgery History of cholecystectomy History of tonsillectomy Social History household members: none Smoking Status: Current every day smoker tobacco type: cigarettes alcohol intake: former details: Reports prior heavy EtOH abuse, notes she does not drink routinely, vague. substance use type: does not use ROS ROS ED Constitutional Constitutional ED: Denies chills, fever(s), subjective or sweats Eyes Eyes: Denies change in vision ENT ENT ED: Denies rhinorrhea or sore throat Cardiovascular Cardiovascular: Denies chest pain or palpitations Respiratory/Chest Respiratory/Chest: Denies dyspnea or dyspnea on exertion Gastrointestinal Gastrointestinal: Reports constipation; Denies abdominal pain, diarrhea, nausea or vomiting Genitourinary Genitourinary ED: Denies dysuria, hematuria or urinary frequency Musculoskeletal Musculoskeletal: Reports back pain; Denies arthralgias, myalgias or neck pain Integumentary Denies Abrasions or rash Neurologic Neurologic: Denies paresthesias or weakness Endocrine Endocrinology: Denies polydipsia or polyuria Hematologic/Lymphatic Hematologic/Lymphatic: Denies easy bleeding or easy bruising Allergic/Immunologic Allergic/Immunologic ED: Denies urticaria EXAM Physical Exam Const Vital Signs: 12/20/21 19:31 Temperature 97.9 F Temperature Source Temporal Pulse Rate 93 Respiratory Rate 18 Blood Pressure 105/84 H Blood Pressure Mean 91 Pulse Ox 95 Oxygen Delivery Method Room Air Positive well nourished and well developed General Appearance ED: well developed HEENT Reports moist mucous membranes Eyes EOMs intact bilaterally Neck no JVD Resp normal respiratory effort Cardio regular rate and regular rhythm GI normal to inspection, nondistended, normoactive bowel sounds, soft to palpation, non-tender and non-distended Palpation: Negative for tender or guarding Back/Spine normal to inspection Back/Spine Narrative: Patient is very thin. I see no contusions abrasions swelling or rash. She does have mostly right-sided paraspinal tenderness down low. There is a little bit on the left but not as much. No percussion tenderness. Extremity normal to inspection Neuro oriented x3 Neuro Narrative: Patient is awake and oriented x3. She was not the best detail informant. She is actually walking in the room. She has a normal gait. Normal strength. Normal reflexes. Sensation is intact. Psych mental status grossly normal Skin no rashes or lesions noted MDM MDM MDM Narrative Medical decision making narrative: Patient is a 3 shows multiple old compression fractures. There was suspicion of ileus because of the bowel loops. But the patient is eating and drinking. She has normal bowel sounds. She states she is constipated but is still moving her bowels intermittently. Clinically she does not have an ileus at this point. I did do an online prescribing report. The only narcotic she got were from us the other day. I do not think she is seeking narcotic but seeking relief. Her pain is very low lumbar musculoskeletal. She is not having syncope or near syncope. She states she has follow-up appointments least at a family doctor in she has at least numbers to call for pain management. We discussed stool softeners. She had stopped taking the MiraLAX that she has been on chronically. I explained that if she is on pain meds she should be taking the MiraLAX. If she develops numbness tingling weakness bowel or bladder dysfunction she needs to return. If she develops abdominal pain nausea vomiting or fever she needs to return. Radiography Diagnostic Testing: Clinical Impression(s) from Imaging Studies Lumbar Spine X-Ray 12/20/21 21:49 IMPRESSION: Multiple old compression fractures as above. Ileus. Electronically Signed: Sajan Mackey MD at 22:39 EDT Reading Location ID and State: [facility] / [place] , Service support , Discharge Plan Triage Chief Complaint: Back ED Provider: Teo Estrella Dx/Rx/DC Orders Clinical Impression: Acute bilateral low back pain Instructions: ED Back Pain (Acute or Chronic) Prescriptions: New hydrocodone-acetaminophen 5-325 mg tablet 1 tab PO Q6H PRN (Reason: pain) 3 Days Qty: 10 0RF No Action lansoprazole 15 mg Capsule,Delayed Release(Dr/Ec) 15 mg PO DAILY polyethylene glycol 3350 [Miralax] 17 gram/dose powder 17 g PO BID PRN PRN (Reason: Constipation) ipratropium-albuterol 0.5 mg-3 mg(2.5 mg base)/3 mL Solution For Nebulization 3 ml inhalation Q4HWA.RT 14 Days Qty: 180 0RF albuterol sulfate 2.5 mg /3 mL (0.083 %) Solution For Nebulization 2.5 mg inhalation Q2H PRN PRN (Reason: Dyspnea, wheezing) 14 Days Qty: 180 0RF Mucus Relief ER 1,200 mg Tablet Extended Release 12hr 1,200 mg PO BID 14 Days Qty: 28 0RF lisinopril-hydrochlorothiazide 10-12.5 mg tablet 1 tab PO DAILY 30 Days Qty: 30 0RF prednisone 10 mg tablet See Taper PO DAILY Qty: 30 0RF Taper: Prednisone Taper 40 mg DAILY for 3 Days and 0 Hour 30 mg DAILY for 3 Days and 0 Hour 20 mg DAILY for 3 Days and 0 Hour 10 mg DAILY for 3 Days and 0 Hour (DME) nebulizer accessories Kit See Rx Instructions .Route Qty: 1 0RF Rx Instructions: As directed hydrocodone-acetaminophen [hydrocodone-acetaminophen] 5-325 mg tablet 1 tab PO Q6H PRN PRN (Reason: Pain) 3 Days Qty: 10 0RF naproxen 500 mg tablet 500 mg PO BID Qty: 10 0RF Primary Care Provider: Jose Carlos Lang Referrals: Jose Carlos Lang MD [Primary Care Provider] - As soon as possible Activity Restrictions/Additional Instructions: Make sure you take stool softeners while on pain medicines. You can increase MiraLAX and to you are having at least 1 good bowel movement daily. Return with fevers, vomiting, worsening pain, numbness, weakness or other concerns. Be sure to call your family physician in the morning for close follow-up. Disposition Disposition: Home, Self Care
[2021-12-20] MEDS: HYDROcodone Bitartrate/Apap 5/325 Tablet PO (21:36)
--- NOTE | 2021-12-20 21:49 | RAD_ITS ---
STUDY: X-RAY - LUMBAR SPINE REASON FOR EXAM: Female, 61 years old. trauma TECHNIQUE: 2 view(s) of the lumbar spine were obtained. COMPARISON: 10/30/2019 lumbar spine radiograph FINDINGS: Normal lumbar lordosis. There is no substantial scoliosis. There is a normal alignment of the vertebrae. Mild compression fractures T10, T11, T12, L1 and L2. These appear unchanged. No retropulsion. Normal vertebral bodies and endplates. Normal disc space heights. Gas-filled loops of small or large bowel. The soft tissue structures are unremarkable. RAD/Lumbar Spine 2 or 3 Views IMPRESSION: Multiple old compression fractures as above. Ileus. Electronically Signed: Sajan Mackey MD at 22:39 EDT ,
[2021-12-20 23:02] VITALS: BP 108/60; PULSE 78; RESP 18; O2SAT 96
== END 2021-12-20 23:03 | disposition home or self-care (01) ==
PROVIDERS: Emergency Provider Emergency Medicine; PCP Family Medicine; Visit Provider Emergency Medicine
DX: M54.50 Low back pain, unspecified (principal); J44.9 Chronic obstructive pulmonary disease, unspecified; F31.9 Bipolar disorder, unspecified; I10 Essential (primary) hypertension; K59.09 Other constipation; F41.9 Anxiety disorder, unspecified; G47.30 Sleep apnea, unspecified; F17.210 Nicotine dependence, cigarettes, uncomplicated
CPT/HCPCS: 72100; 99283

== ENCOUNTER 2023-05-02 16:52 | Emergency (ER) | payer MEDICAID, SELFPAY ==
[2023-05-02 16:53] VITALS: BP 145/99; PULSE 92; RESP 18; TEMP 36.1; O2SAT 93; BMI 18.6
[2023-05-02 17:11] LABS: Absolute Lymphocyte Count 1.68 X10^3/uL (0.83-4.51); Absolute Neutrophil Count 3.9 X10^3/uL (2.0-7.7); Basophil# 0.09 X10^3/uL; Basophil% 1.4 % (0-1); Eosinophil# 0.08 X10^3/uL; Eosinophils% 1.2 % (0-5); Hematocrit 46.7 % (37-47); Hemoglobin 14.1 g/dL (12.0-15.0); Lymphocyte # 1.68 X10^3/ul (0.83-4.51); Mean Corp Hgb Conc 30.2 g/dL (32-36); Mean Corpuscular Hgb 31.2 pg (27.0-32.0); Mean Corpuscular Volume 103.3 fL (81-99); Mean Platelet Vol. 9.1 fl (6.2-12.0); Monocyte# 0.68 X10^3/uL; Monocyte% 10.5 % (0-10); NRBC Flagged by Analyzer 0 % (0-5); Neutrophil # 3.92 X10^3/uL (2.7-7.7); Neutrophil % 60.6 % (47-70); Platelet Count 339 K/mm3 (150-450); RBC Distribution Width CV 13.9 % (11.6-14.6); RBC Distribution Width SD 52.6 fl (35.1-43.9); Red Blood Count 4.52 M/mm3 (4.2-5.4); White Blood Count 6.5 K/mm3 (4.4-11.0)
[2023-05-02] MEDS: 0.9% Normal Saline (1000mL) 1,000 ML 1000 ML IV (17:18)
--- OUTSIDE RECORDS SUMMARY | 2023-05-02 17:30 | XMS RPT_ITS | CCD ---
Author Name Unknown Address [address] [place] [address] Organization [facility] Care Team Providers Care School Teacher Name Role Phone Octavia Russell Unavailable Unavailable Octavia Russell Unavailable Unavailable Jose Carlos Jones Unavailable Unavailable Karen KHAN, Jose Carlos Cadena Primary Care Provider Karen KHAN, Jose Carlos Cadena Primary Care Provider [phone] Jose Carlos Jones MD Primary Care Provider [phone] Karen KHAN, Jose Carlos Cadena Primary Care Provider [phone] Gillian Dickerson MD Unavailable [phone] JOSE CARLOS JONES A Primary Care Unavailable FRANCESCO FOLEY Referring Unavailable GILLIAN DICKERSON Referring Unavailable JOSE CARLOS JONES Primary Care Unavailable FRANCESCO FOLEY Attending Unavailable LAVERNE JOEL Attending Unavailable KAREN, JOSE CARLOS A Primary Care Unavailable GILLIAN DICKERSON Attending Unavailable JOSE CARLOS JONES A Primary Care Unavailable KAREN, JOSE CARLOS A Primary Care Unavailable KAREN, JOSE CARLOS A Primary Care Unavailable RASHIDA ANDRADE Attending Unavailable KAREN, JOSE CARLOS A Primary Care Unavailable KAREN, JOSE CARLOS A Referring Unavailable KAREN, JOSE CARLOS A Primary Care Unavailable KAREN, JOSE CARLOS A Attending Unavailable YECENIA GOMEZ Referring Unavailable KAREN, JOSE CARLOS A Primary Care Unavailable GILLIAN DICKERSON Referring Unavailable KAREN, JOSE CARLOS Tammi Primary Care Unavailable YECENIA GOMEZ Attending Unavailable KAREN, JOSE CARLOS A Primary Care Unavailable Allergies Allergy Classification Reported Allergen(s) Allergy Type Date of Onset Reaction(s) Facility (20 sources) Latex; Translations: [Latex] Propensity to adverse reactions (disorder) 4 [facility] Repository (1 source) Sulfonamides (Antibiotic); Translations: [sulfa drugs] Propensity to adverse reactions to drug (disorder) [facility] Repository (20 sources) meloxicam; Translations: [MELOXICAM] Drug Allergy 6 GI Upset [facility] Work Phone: (20 sources) nabumetone; Translations: [NABUMETONE] Drug Allergy 7 Shortness of Breath [facility] Work Phone: [phone] (20 sources) Sulfonamides (Antibiotic); Translations: [SULFA (SULFONAMIDE ANTIBIOTICS)] Drug Allergy 6 Unknown [facility] Work Phone: (20 sources) tiotropium; Translations: [TIOTROPIUM BROMIDE] Drug Allergy 8 Other: See Comments [facility] Work Phone: (20 sources) novacaine [Other] Propensity to adverse reactions 6 Unknown [facility] Work Phone: (14 sources) montelukast; Translations: [MONTELUKAST] Drug Allergy 3 Other: See Comments [facility] Work Phone: (1 source) OTHER; Translations: [OTHER] Propensity to adverse reactions (disorder) 6 [facility] Repository Medications Current Medications Medication Drug Class(es) Dates Sig (Normalized) Sig (Original) clotrimazole 10 mg oral lozenge (3 sources) Azole Antifungal Start: 01-06-2022 End: 01-13-2022 clotrimazole (MYCELEX) 10 mg lenka Indications: Sore throat Use 1 Lenka as instructed five times daily for 7 days. 35 tablet 0 01/06/2022 01/13/2022 Active Completed/Discontinued Medications Medication Drug Class(es) Dates Sig (Normalized) Sig (Original) acetaminophen 325 mg oral tablet (20 sources) acetaminophen (T YLENOL) 325 mg tablet Take 500 mg by mouth every 6 hours as needed. Take (2) 500 mg tablet every 6 hours as needed. 0 Active Problems Active Problems Problem Classification Problem Date Documented Da te Episodic/Chronic Abdominal pain (3 sources) Right upper quadrant pain; Translations: [Right upper quadrant pain] Episodic Alcohol-related disorders (20 sources) Alcohol abuse; Translations: [Alcohol abuse, uncomplicated] Onset: 4 08-27-2016 Chronic Anxiety disorders (20 sources) Anxiety; Translations: [Anxiety disorder, unspecified] Onset: 4 02-26-2014 Chronic Asthma (2 sources) Asthma; Translations: [Unspecified asthma, uncomplicated] Chronic Chronic obstructive pulmonary disease and bronchiectasis (20 sources) Severe chronic obstructive pulmonary disease; Translations: [Chronic obstructive pulmonary disease, unspecified] Onset: 7 08-03-2019 Chronic Coagulation and hemorrhagic disorders (20 sources) Platelet count below reference range; Translations: [Thrombocytopenia, unspecified] Onset: 2 Chronic Delirium, dementia, and amnestic and other cognitive disorders (20 sources) Postconcussion syndrome; Translations: [Postconcussional syndrome] Onset: 5 08-27-2016 Chronic Disorders of lipid metabolism (20 sources) Dyslipidemia; Translations: [Hyperlipidemia, unspecified] Onset: 9 10-14-2018 Chronic Esophageal disorders (20 sources) Gastroesophageal reflux disease; Translations: [Gastro-esophageal reflux disease without esophagitis] Onset: 4 02-26-2014 Chronic Essential hypertension (20 sources) Essential hypertension; Translations: [Essential (primary) hypertension] Onset: 7 08-27-2016 Chronic Genitourinary symptoms and ill-defined conditions (1 source) Scalding pain on urination ; Translations: [Dysuria] Episodic Headache; including migraine (20 sources) Migraine with aura; Translations: [Migraine with aura, not intractable, without status migrainosus] Onset: 7 08-27-2016 Chronic Malaise and fatigue (1 source) Fatigue; Translations: [Other fatigue] Episodic Mood disorders (20 sources) Depressive disorder; Translations: [Depression] Onset: 4 08-27-2016 Chronic Mycoses (1 source) Candidiasis of vagina; Translations: [Marta vaginitis] Episodic Other aftercare (1 source) Post-discharge follow-up; Translations: [Encounter for follow-up examination after completed treatment for conditions other than malignant neoplasm] Episodic Other connective tissue disease (1 source) Leg swelling symptom; Translations: [Other specified soft tissue disorders] Episodic Other gastrointestinal disorders (20 sources) Irritable bowel syndrome; Translations: [Irritable bowel syndrome without diarrhea] 10-14-2018 Chronic Other liver diseases (20 sources) Liver cyst; Translations: [Other specified diseases of liver] Onset: 2 Chronic Other nutritional; endocrine; and metabolic disorders (1 source) Weight loss; Translations: [Abnormal weight loss] Episodic Other upper respiratory disease (2 sources) Allergic rhinitis; Translations: [Allergic rhinitis, unspecified] Chronic Other upper respiratory disease (1 source) Allergic rhinitis, unspecified; Translations: [Allergic rhinitis, unspecified seasonality, unspecified trigger] Onset: 2 Chronic Other upper respiratory infections (1 source) Sore throat symptom; Translations: [Acute pharyngitis, unspecified] Episodic Pulmonary heart disease (20 sources) Pulmonary arterial hypertension; Translations: [Secondary pulmonary arterial hypertension] Onset: 2 02-06-2022 Chronic Residual codes; unclassified (20 sources) Obstructive sleep apnea syndrome; Translations: [Obstructive sleep apnea (adult) (pediatric)] Onset: 7 08-27-2016 Chronic Residual codes; unclassified (1 source) Obstructive sleep apnea (adult) (pediatric); Translations: [VAIBHAV (obstructive sleep apnea)] Onset: 7 Chronic Residual codes; unclassified (1 source) Bilateral lower limb edema; Translations: [Localized edema] Episodic Residual codes; unclassified (1 source) Tobacco use and exposure - finding; Translations: [Tobacco use] Episodic Residual codes; unclassified (1 source) Chill; Translations: [Chills (without fever)] Episodic Residual codes; unclassified (2 sources) Tobacco user; Translations: [Tobacco use] 02-05-2023 Episodic Residual codes; unclassified (1 source) Tobacco use; Translations: [Tobacco use current] Onset: 3 Episodic Spondylosis; intervertebral disc disorders; other back problems (20 sources) Lumbar spondylosis; Translations: [Spondylosis without myelopathy or radiculopathy, lumbar region] Onset: 6 08-27-2016 Chronic Substance-related disorders (20 sources) Smoker; Translations: [Nicotine dependence, unspecified, uncomplicated] Onset: 4 04-10-2021 Chronic Varicose veins of lower extremity (1 source) Pain co-occurrent and due to varicose veins of right leg; Translations: [Varicose veins of right lower extremity with pain] Episodic Past or Other Problems Problem Classification Problem Date Documented Da te Episodic/Chronic Conditions associated with dizziness or vertigo (20 sources) Benign paroxysmal positional vertigo; Translations: [Benign paroxysmal vertigo, unspecified ear] Onset: 08-27-2016 08-27-2016 Episodic Nutritional deficiencies (20 sources) Cobalamin deficiency; Translations: [Deficiency of other specified B group vitamins] Onset: 03-22-2022 Episodic Other lower respiratory disease (20 sources) Multiple nodules of lung; Translations: [Other nonspecific abnormal finding of lung field] Onset: 09-28-2015 08-27-2016 Episodic Other lower respiratory disease (1 source) Other nonspecific abnormal finding of lung field; Translations: [Multiple lung nodules on CT] Onset: 08-27-2016 Episodic Other nervous system disorders (20 sources) Trigeminal neuralgia; Translations: [Trigeminal neuralgia] Onset: 10-09-2013 08-27-2016 Episodic Other non-traumatic joint disorders (20 sources) Shoulder pain; Translations: [Pain in right shoulder] Onset: 10-09-2013 08-27-2016 Episodic Other non-traumatic joint disorders (9 sources) Pain in right shoulder; Translations: [Pain in joint, shoulder region] Onset: 10-09-2013 08-27-2016 Episodic Other screening for suspected conditions (not mental disorders or infectious disease) (20 sources) Patient encounter status; Translations: [Encounter for screening mammogram for malignant neoplasm of breast] Onset: 10-14-2018 Episodic Spondylosis; intervertebral disc disorders; other back problems (20 sources) Chronic low back pain; Translations: [Lumbago with sciatica, unspecified side] Onset: 08-23-2015 08-27-2016 Episodic Results Test Name Value Interpretation Reference Range Facil ity Vital Signs Date Time Vital Sign Value Performing Clinician Evelin broderick 02-05-2023 12:52-0400 Body weight 47.63 kg Francesco Foley APRN.CNP Work Phone: [facility] 02-05-2023 12:52-0400 Diastolic blood pressure 80 mm[Hg] Francesco Foley APRN.CNP Work Phone: [facility] 02-05-2023 12:52-0400 Heart rate 82 /min Francesco Foley APRN.MANAGER COST Work Phone: [facility] 02-05-2023 12:52-0400 SaO2% (BldA) [Mass fraction] 94 % Francesco Foley 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 Work Phone: [facility] 02-05-2023 12:52-0400 Systolic blood pressure 122 mm[Hg] Francesco Foley 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 Work Phone: [facility] 11-20-2022 12:46-0400 Body weight 46.27 kg Laverne Joel 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 Work Phone: [facility] 11-20-2022 12:46-0400 Diastolic blood pressure 70 mm[Hg] Laverne Joel 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 Work Phone: [facility] 11-20-2022 12:46-0400 Heart rate 60 /min Laverne Joel 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 Work Phone: [facility] 11-20-2022 12:46-0400 Respiratory rate 14 /min Laverne Joel 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 Work Phone: [facility] 11-20-2022 12:46-0400 Systolic blood pressure 104 mm[Hg] Laverne Joel 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 Work Phone: [facility] 10-08-2022 19:44-0400 Body temperature 98.4 [degF] Krislyn Aberegg PA Work Phone: [facility] 10-08-2022 19:44-0400 Body weight 48.08 kg Krislyn Aberegg PA Work Phone: [facility] 10-08-2022 19:44-0400 Diastolic blood pressure 72 mm[Hg] Krislyn Aberegg PA Work Phone: [facility] 10-08-2022 19:44-0400 Heart rate 96 /min Krislyn Aberegg PA Work Phone: [facility] 10-08-2022 19:44-0400 Respiratory rate 16 /min Krislyn Aberegg PA Work Phone: [facility] 10-08-2022 19:44-0400 SaO2% (BldA) [Mass fraction] 98 % Krislyn Aberegg PA Work Phone: [facility] 10-08-2022 19:44-0400 Systolic blood pressure 118 mm[Hg] Krislyn Aberegg PA Work Phone: [facility] 08-02-2022 10:45-0400 Diastolic blood pressure 72 mm[Hg] Rashida Andrade PA-C Work Phone: [facility] 08-02-2022 10:45-0400 Systolic blood pressure 110 mm[Hg] Rashida Andrade PA-C Work Phone: [facility] 08-02-2022 10:39-0400 Heart rate 70 /min Rashida Andrade PA-C Work Phone: [facility] 08-02-2022 10:27-0400 Body temperature 97.59 [degF] Rashida Andrade PA-C Work Phone: [facility] 08-02-2022 10:27-0400 Body weight 49.44 kg Rashida Andrade PA-C Work Phone: [facility] 08-02-2022 10:27-0400 Respiratory rate 16 /min Rashida Andrade PA-C Work Phone: [facility] 05-23-2022 14:27-0500 Body weight 45.81 kg Jose Carlos Jones MD Work Phone: [facility] 05-23-2022 14:27-0500 Diastolic blood pressure 63 mm[Hg] Jose Carlos Jones MD Work Phone: [facility] 05-23-2022 14:27-0500 Heart rate 84 /min Jose Carlos Jones MD Work Phone: [facility] 05-23-2022 14:27-0500 Respiratory rate 16 /min Jose Carlos Jones MD Work Phone: [facility] 05-23-2022 14:27-0500 Systolic blood pressure 90 mm[Hg] Jose Carlos Jones MD Work Phone: [facility] 04-12-2022 13:32-0500 Body height 163.8 cm Yecenia Ted PA-C Work Phone: [facility] 04-12-2022 13:32-0500 Body temperature 97.11 [degF] Yecenia Ted PA-C Work Phone: [facility] 04-12-2022 13:32-0500 Body weight 46.72 kg Yecenia Ted PA-C Work Phone: [facility] 04-12-2022 13:32-0500 Diastolic blood pressure 76 mm[Hg] Yecenia Ted PA-C Work Phone: [facility] 04-12-2022 13:32-0500 Heart rate 78 /min Yecenia Ted PA-C Work Phone: [facility] 04-12-2022 13:32-0500 Respiratory rate 14 /min Yecenia Ted PA-C Work Phone: [facility] 04-12-2022 13:32-0500 SaO2% (BldA) [Mass fraction] 99 % Yecenia Ted PA-C Work Phone: [facility] 04-12-2022 13:32-0500 Systolic blood pressure 110 mm[Hg] Yecenia Ted PA-C Work Phone: [facility] 03-20-2022 13:44-0500 Body weight 45.81 kg Laverne Joel APRN.MANAGER COST Work Phone: [facility] 03-20-2022 13:44-0500 Diastolic blood pressure 60 mm[Hg] Laverne Joel APRN.MANAGER COST Work Phone: [facility] 03-20-2022 13:44-0500 Heart rate 90 /min Laverne Joel 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 Work Phone: [facility] 03-20-2022 13:44-0500 Respiratory rate 16 /min Laverne Joel 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 Work Phone: [facility] 03-20-2022 13:44-0500 SaO2% (BldA) [Mass fraction] 100 % Laverne Joel 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 Work Phone: [facility] 03-20-2022 13:44-0500 Systolic blood pressure 104 mm[Hg] Laverne Joel 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 Work Phone: [facility] 02-06-2022 13:26-0400 Body height 163.8 cm Respiratory Wstr Work Phone: [facility] 02-06-2022 13:26-0400 Body weight 45.13 kg Respiratory Wstr Work Phone: [facility] 02-06-2022 13:26-0400 Heart rate 107 /min Respiratory Wstr Work Phone: [facility] 02-06-2022 13:26-0400 Respiratory rate 14 /min Respiratory Wstr Work Phone: [facility] 02-06-2022 13:26-0400 SaO2% (BldA) [Mass fraction] 97 % Respiratory Wstr Work Phone: [facility] 01-06-2022 14:48-0400 Body temperature 97.7 [degF] Sajan Hodges MD Work Phone: [facility] 01-06-2022 14:48-0400 Body weight 44.45 kg Sajan Hodges MD Work Phone: [facility] 01-06-2022 14:48-0400 Diastolic blood pressure 80 mm[Hg] Sajan Hodges MD Work Phone: [facility] 01-06-2022 14:48-0400 Heart rate 73 /min Sajan Hodges MD Work Phone: [facility] 01-06-2022 14:48-0400 Respiratory rate 18 /min Sajan Hodges MD Work Phone: [facility] 01-06-2022 14:48-0400 Systolic blood pressure 90 mm[Hg] Sajan Hodges MD Work Phone: [facility] 12-13-2021 11:02-0400 Body temperature 97.39 [degF] Shital Suzanna 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 Work Phone: [facility] 12-13-2021 11:02-0400 Body weight 49.17 kg Shital Suzanna 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 Work Phone: [facility] 12-13-2021 11:02-0400 Diastolic blood pressure 100 mm[Hg] Shital Suzanna 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 Work Phone: [facility] 12-13-2021 11:02-0400 Heart rate 88 /min Shital Suzanna 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 Work Phone: [facility] 12-13-2021 11:02-0400 Respiratory rate 18 /min Shital Suzanna 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 Work Phone: [facility] 12-13-2021 11:02-0400 SaO2% (BldA) [Mass fraction] 95 % Shital Suzanna 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 Work Phone: [facility] 12-13-2021 11:02-0400 Systolic blood pressure 120 mm[Hg] Shital Suzanna 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 Work Phone: [facility] 11-29-2021 13:31-0400 Body weight 53.34 kg Gailmargret Garcialogar 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 Work Phone: [facility] 11-29-2021 13:31-0400 Diastolic blood pressure 80 mm[Hg] Gail Podlogar 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 Work Phone: [facility] 11-29-2021 13:31-0400 Heart rate 97 /min Gail Podlogar 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 Work Phone: [facility] 11-29-2021 13:31-0400 Respiratory rate 18 /min Gail Podlogar 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 Work Phone: [facility] 11-29-2021 13:31-0400 SaO2% (BldA) [Mass fraction] 92 % Gail Podlogar 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 Work Phone: [facility] 11-29-2021 13:31-0400 Systolic blood pressure 112 mm[Hg] Gail Podlogar 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 Work Phone: [facility] 11-24-2021 15:08-0400 Body temperature 98.6 [degF] Aditya Davison 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 Work Phone: [facility] 11-24-2021 15:08-0400 Body weight 54.52 kg Aditya Davison 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 Work Phone: [facility] 11-24-2021 15:08-0400 Diastolic blood pressure 64 mm[Hg] Aditya Davison 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 Work Phone: [facility] 11-24-2021 15:08-0400 Heart rate 88 /min Aditya Davison 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 Work Phone: [facility] 11-24-2021 15:08-0400 Respiratory rate 18 /min Aditya Davison 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 Work Phone: [facility] 11-24-2021 15:08-0400 SaO2% (BldA) [Mass fraction] 90 % Aditya Davison 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 Work Phone: [facility] 11-24-2021 15:08-0400 Systolic blood pressure 118 mm[Hg] Aditya Davison 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 Work Phone: [facility] Encounters Encounter Date Encounter Type Care Provider Facility Start: 04-05-2023 End: 04-05-2023 ambulatory JOSE CARLOS JONES Facility:[facility] Start: 02-27-2023 ambulatory Kay Argueta RN NURS E DISTRESSER Procedures Date Procedure Procedure Detail Performing Clinician Start: 02-06-2023 CT LUNG SCREEN FABRIZIO Foley 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 Work Phone: Start: 10-08-2022 Urnls dip stick/tabl et rgnt auto w/o microscopy Aditya Davison APRN.MANAGER COST Work Phone: Start: 03-21-2022 Us abdominal real ti me w/image limited Jose Carlos Jones MD Work Phone: Start: 03-16-2022 Lipid 1996 panel - S veronique or Plasma Gillian Dickerson MD Work Phone: Start: 02-16-2022 Ct thorax w/o contra st material Gillian Dickerson MD Work Phone: Start: 02-06-2022 Brncdilat rspse spmt ry pre&post-brncdilat admn Gillian Dickerson MD Work Phone: Start: 01-06-2022 STREP A MOLECULAR (POC) Sajan Hodges MD Work Phone: Start: 12-12-2016 Mammography Jose Carlos damon MD Work Phone: Plan of Treatment Date Care Activity Detail Author Start: 03-16-2027 Lipid 1996 panel - Serum or Plasma Lipid Screening [facility] Start: 03-16-2027 LIPID SCREEN LIPID SCREEN [facility] Start: 03-16-2025 DIABETES SCREEN DIABETES SCREEN [facility] Start: 03-16-2025 Diabetes Screening Diabetes Screening [facility] Start: 08-06-2024 Urine microalbumin profile [facility] Start: 11-21-2023 ANNUAL PCP TEAM CHRONIC DISEASE VISIT ANNUAL PCP TEAM CHRONIC DISEASE VISIT [facility] Start: 11-21-2023 BP CONTROLLED (<130/80) BP CONTROLLED (<130/80) [facility] Start: 10-22-2023 LIPID SCREEN LIPID SCREEN [facility] Start: 10-09-2023 BP CONTROLLED (<130/80) BP CONTROLLED (<130/80) [facility] Start: 08-03-2023 ANNUAL PCP TEAM CHRONIC DISEASE VISIT ANNUAL PCP TEAM CHRONIC DISEASE VISIT [facility] Start: 08-03-2023 BP CONTROLLED (<130/80) BP CONTROLLED (<130/80) [facility] Start: 05-23-2023 ANNUAL PCP TEAM CHRONIC DISEASE VISIT ANNUAL PCP TEAM CHRONIC DISEASE VISIT [facility] Start: 05-23-2023 BP CONTROLLED (<130/80) BP CONTROLLED (<130/80) [facility] in Start: 04-12-2023 BP CONTROLLED (<130/80) BP CONTROLLED (<130/80) [facility] in Start: 03-20-2023 ANNUAL PCP TEAM CHRONIC DISEASE VISIT ANNUAL PCP TEAM CHRONIC DISEASE VISIT [facility] Start: 03-20-2023 BP CONTROLLED (<130/80) BP CONTROLLED (<130/80) [facility] in Start: 02-16-2023 Influenza vaccination LUNG CANCER SCREENING [facility] Start: 02-06-2023 BP CONTROLLED (<130/80) BP CONTROLLED (<130/80) [facility] in Start: 02-03-2023 PNEUMOCOCCAL (2 - PCV) PNEUMOCOCCAL (2 - PCV) [facility] Start: 02-03-2023 Pneumococcal vaccination Pneumococcal Vaccine (2 - PCV) [facility] Start: 12-14-2022 Covid-19 Vaccine ( season) Covid-19 Vaccine ( season) [facility] Start: 12-14-2022 Influenza vaccination [facility] Start: 11-29-2022 ANNUAL PCP TEAM CHRONIC DISEASE VISIT ANNUAL PCP TEAM CHRONIC DISEASE VISIT [facility] Start: 11-29-2022 BP CONTROLLED (<130/80) BP CONTROLLED (<130/80) [facility] Start: 11-24-2022 BP CONTROLLED (<130/80) BP CONTROLLED (<130/80) [facility] Start: 05-23-2022 End: 07-23-2022 Cobalamin (Vitamin B12) [Mass/volume] in Serum or Plasma VITAMIN B12 BLOOD Lab Routine Vitamin B12 deficiency Expected: 05/23/2022, Expires: 07/23/2022 [facility] Work Phone: Immunizations Immunization Date Immunization Notes Care Provider Fa cili 02-03-2022 influenza, injectabl e, quadrivalent, preservative free Vitaliy Garcia MD Work Phone: [facility] Work Phone: 02-03-2022 pneumococcal polysaccharide vaccine, 23 valent Vitaliy Garcia MD Work Phone: [facility] Work Phone: 02-03-2022 influenza virus vacc ine, unspecified formulation Gillian Dickerson MD Work Phone: [facility] 02-15-2021 influenza, injectabl e, quadrivalent, preservative free Vitaliy Garcia MD Work Phone: [facility] Work Phone: 01-10-2018 influenza, injectabl e, quadrivalent, contains preservative Jose Carlos Jones MD Work Phone: [facility] Work Phone: 03-25-2017 pneumococcal polysaccharide vaccine, 23 valent Jose Carlos Jones MD Work Phone: [facility] 02-13-2017 influenza, seasonal, injectable Jose Carlos Jones MD Work Phone: [facility] Work Phone: 12-28-2015 influenza, injectabl e, quadrivalent, contains preservative Jose Carlos Jones MD Work Phone: [facility] 01-05-2015 influenza, injectabl e, quadrivalent, contains preservative Jose Carlos Jones MD Work Phone: [facility] 08-06-2014 tetanus toxoid, redu melissa diphtheria toxoid, and acellular pertussis vaccine, adsorbed Jose Carlos Jones MD Work Phone: [facility] Work Phone: Payers Date Payer Category Payer Medicaid [id number] 2018 Unknown 2015 [facility] [id number] 2015-Present [phone] [address] [place] [address] Medicaid [id number] 2015 Medicaid [id number] 2015 Medicaid [id number] 1960 Unknown [id number] Social History Date Type Detail Facility Start: 1979 End: 02-05-2023 Tobacco smoking status NHIS Smokes tobacco daily [facility] Start: 1979 History of tobacco use Cigarette Smo ker [facility] Start: 11-07-2019 End: 02-05-2023 Alcohol intake Current non-drinker of alcohol (finding) [facility] Start: 08-29-2017 End: 12-13-2021 Tobacco Comment 0.5-0.75 PPD on 08/29/2017, TO. [facility] Start: 1960 Sex Assigned At Not on file C [facility] Start: 08-29-2017 End: 10-22-2022 Cigarettes smoked current (pack per day) - Reported 1.5 [facility] Start: 08-29-2017 End: 02-05-2023 Tobacco use and exposure Smokeless tobacco non-user [facility] Work Phone: Start: 11-14-2021 End: 03-16-2022 Exposure to SARS-CoV-2 (event) Not sure [facility] Work Phone: Start: 02-06-2022 Tobacco Comment Current 4 ciga rettes a day [facility] Start: 11-29-2021 End: 10-22-2022 Tobacco use panel [facility] Adult Depression Screening Assessment 2 [facility] Start: 10-22-2022 Tobacco Comment Current 5-7 ci garettes a dayFormer 1 ppd smoker [facility] Start: 02-05-2023 Tobacco Comment Current 3-4 ci garettes a dayFormer 1 ppd smoker [facility] Clinical Notes 08-06-2014 to 04-05-2023 Telephone Encounter - Keila Patterson Cma - 02/28/2023 4:59 PM ESTTelephone Encounter - Lita Bianchi RN - 02/28/2023 3:35 PM Maxine Jolley, RT(R) - 02/06/2023 3:40 PM EDT Note Date & Type Note Facility 04-05-2023 Note HNO ID: [id number] Author: Jose Carlos Rosado APRN.MANAGER COST Service: ? Author Type: Nurse Practitioner Type: Progress Notes Filed: 04/05/2023 4:32 PM Note Text: Subjective HPI Nontoxic-appearing female presents urgent care chief complaint cough chest congestion. Duration of symptoms 1 week. Associated symptoms cough chest congestion. Cough has been became productive over the last few days. Sick contacts mother similar signs symptoms. Has not used any OTC medications today. Risk factors COPD. Denies any fevers chest pain hemoptysis nausea vomiting abdominal pain change in bowel or bladder habits. Past medical history prescription medication use allergies reviewed. BP 98/64 Pulse 91 Temp (!) 35.8 ?C (96.5 ?F) Wt 40.4 kg (89 lb) LMP 08/31/2007 SpO2 97% BMI 14.81 kg/m? .Patient presents with: Fatigue: Cough, sore throat, phlegm, x 1 week PAST MEDICAL HISTORY Diagnosis Date Alcohol abuse 02/26/2014 Anal fissure and fistula Anorexia nervosa Anxiety 02/26/2014 Bilateral shoulder pain 10/09/2013 BPV (benign positional vertigo) 08/27/2016 Chronic bilateral low back pain with sciatica 08/23/2015 COPD, severe (HCC) 10/03/2016 Depression 02/26/2014 DJD (degenerative joint disease), lumbar 07/22/2015 Dyslipidemia 10/14/2018 Eating disorder Essential hypertension 08/27/2016 GERD (gastroesophageal reflux disease) 02/26/2014 Irritable bowel syndrome Irritable bowel Liver cyst 03/16/2022 Migraine with aura and without status migrainosus, not intractable 08/27/[address] Carroll Mitral valve disorders(424.0) Multiple lung nodules on CT 09/28/2015 Obsessive-compulsive disorders VAIBHAV (obstructive sleep apnea) 08/27/2016 On CPAP PAH (pulmonary artery hypertension) (HCC) 02/06/2022 Post concussion syndrome 08/06/2014 Sees Neurology Smoker 02/26/2014 1-1 1/2 PPD since 19 yo. Trigeminal neuralgia 10/09/2013 Unspecified hemorrhoids without mention of complication Hemorrhoids Vitamin B12 deficiency 03/22/2022 PAST SURGICAL HISTORY Procedure Laterality Date 2D ECHO (EXEP) 11/16/2017 EF=65% mild pulm HTN no valve issues. CHOLECYSTECTOMY 2004 PAST SURGICAL HISTORY OF ANAL FISTULA REPAIR PAST SURGICAL HISTORY OF 2009 left clavicle fracture ORIF PAST SURGICAL HISTORY OF dental surgery TONSILLECTOMY PRIMARY/SECONDARY Tonsillectomy ALLERGIES Latex, Singulair [Montelukast], Meloxicam, Nabumetone, Novacaine [Other], Spiriva Respimat [Tiotropium [place]], and Sulfa (Sulfonamide Antibiotics) MEDICATIONS albuterol HFA (PROVENTIL HFA, VENTOLIN HFA) 90 mcg/actuation inhalerInhale 2 Puffs as instructed every 4 hours as needed. For Wheezing/Shortness of BreathDisp: 1 EachRfl: 5 lansoprazole (PREVACID) 30 mg capsuleTake 1 capsule by mouth daily before breakfast. 1/2 hr before meal.Disp: 90 capsuleRfl: 1 lisinopril (ZESTRIL) 10 mg tabletTake 1 tablet by mouth once daily.Disp: 90 tabletRfl: 1 ipratropium-albuterol (DUONEB) 0.5 mg-3 mg(2.5 mg base)/3 mL nebuInhale 3 mL as instructed every 4 hours as needed for wheezing/shortness of breath.Disp: 120 EachRfl: 5 guaiFENesin (MUCINEX) 600 mg 12 hr tabletTake 2 tablets by mouth twice daily.Disp: 120 tabletRfl: 2 albuterol (PROVENTIL) 2.5 mg /3 mL (0.083 %) nebulizer solutionUse 3 mL via nebulizer three times daily as needed for wheezing/shortness of breath. OVER 5-15 MINUTES. FOR WHEEZING AND SHORTNESS OF BREATH.Disp: 300 mLRfl: 5 ipratropium (ATROVENT) 0.02 % nebulizer solutionUse 2.5 mL via nebulizer four times daily as needed. OVER 5-15 MINUTES FOR WHEEZING OR SHORTNESS OF BREATHDisp: 300 mLRfl: 5 albuterol (PROVENTIL) 2.5 mg /3 mL (0.083 %) nebulizer solutionUse 3 mL via nebulizer every 4 hours as needed for wheezing/shortness of breath. OVER 5-15 MINUTES. FOR WHEEZING AND SHORTNESS OF BREATH.Disp: 120 mLRfl: 5 ipratropium (ATROVENT) 0.02 % nebulizer solutionUse 2.5 mL via nebulizer four times daily. OVER 5-15 MINUTES FOR WHEEZING OR SHORTNESS OF BREATHDisp: 120 mLRfl: 5 qsgseauuczw-zffuntlil-gicnjqin (TRELEGY ELLIPTA) 100-62.5-25 mcg inhalation powderInhale 1 Puff as instructed once daily.Disp: 1 EachRfl: 11 cyanocobalamin (VITAMIN B-12) 1,000 mcg tabTake 1 tablet by mouth once daily.Disp: Rfl: hydrOXYzine pamoate (VISTARIL) 25 mg capsuleTake 1 capsule by mouth three times daily as needed.Disp: 90 capsuleRfl: 0 meclizine (ANTIVERT) 25 mg tabTake 1/2 to 1 tab by mouth every 8 hrs for dizziness.Disp: 30 tabletRfl: 2 acetaminophen (TYLENOL) 325 mg tabletTake 500 mg by mouth every 6 hours as needed. Take (2) 500 mg tablet every 6 hours as needed.Disp: Rfl: FAMILY HISTORY Problem Relation Age of Onset Heart Mother Hypertension Mother COPD Mother Heart Father COPD Brother other (HTN) Brother Lung Cancer Maternal Uncle Social History Tobacco Use Smoking status: Every Day Packs/day: 0.25 Years: 30.00 Additional pack years: 0.00 Total pack years: 7.50 (more content not included)... [facility] 02-28-2023 Miscellaneous Notes Patient stopped by to machine operator picker letter- PCP and nurse are out of office today and I was unable to locate letter while pt was in office. Pt agreed that when letter was located that it would be best that it was mailed to her. Address verified with pt. Letter was located after pt left and placed in mail for patient. Keila Patterson Cma Patient calls to say she will pick letter up in medical records. Lita Bianchi RN Letter is on fax outbox. Desiree Arreaga MA Left additional message for patient to contact office. Desiree Arreaga MA Left additional message. Desiree Arreaga MA Left message for patient. Would like to machine operator picker or mail? Desiree Arreaga MA Letter ready. Patient is requesting a letter to be excused from jury duty. Please advise. documented in this encounter [facility] 02-27-2023 Miscellaneous Notes Patient calling with return call/Message from Dr. Jnoes's office: Patient denies any new or worsening symptoms of which a provider is not aware:Yes. Patient states she received voicemail's regarding requested note and will be there 02/28/2023 to pick it up from the commercial front load operator. Will route this encounter to Dr. Jones as courtesy per patient request. GO TO THE EMERGENCY ROOM OR CALL 911 IF: * You develop any new symptoms * Your condition worsens * You are concerned or anxious about your condition for any other reason. If you have any questions, you can call Nurse animal control licensing worker back. documented in this encounter [facility] 02-12-2023 Miscellaneous Notes Pt notified of results and recommendation for follow up in 3 mos. She agrees. Left message for pt to call back regarding results. Case reviewed with Dr. France physician champion. Lung Rads category 4 A for new 7.8 mm RUL nodule. Plan 3 mos follow up documented in this encounter [facility] 02-06-2023 Note HNO ID: [id number] Author: Maxine Bruno RT(R) Service: ? Author Type: Chip Mucker Type: Progress Notes Filed: 02/06/2023 3:59 PM Note Text: Radiology Service Progress Note PATIENT NAME: Bonny Ennis DATE OF SERVICE: February 06, 2023 TIME: 3:59 PM PATIENT IDENTITY VERIFICATION COMPLETED USING TWO (2) IDENTIFIERS: Name and Date of confirmed by patient verbally. FALL SCREENING: Has the patient had 2 falls in the last year or 1 fall with injury or currently using an Ambulatory Assistive Device (Walker, Cane, Wheelchair, Crutches, etc.)? No PATIENT GENDER DATA: Female. status: : No status: NO. PATIENT RELEVANT IMPLANT DATA REVIEWED: Yes RADIOLOGY DEPARTMENT: CT; Exam(s) Completed: Chest PERIPHERAL IV DATA: Not applicable SIGNED BY: RT Francisco J(R) February 06, 2023 3:59 PM [facility] 02-06-2023 History of Present illness Narrative Radiology Service Progress Note PATIENT NAME: Bonny Ennis DATE OF SERVICE: February 06, 2023 TIME: 3:59 PM PATIENT IDENTITY VERIFICATION COMPLETED USING TWO (2) IDENTIFIERS: Name and Date of confirmed by patient verbally. FALL SCREENING: Has the patient had 2 falls in the last year or 1 fall with injury or currently using an Ambulatory Assistive Device (Walker, Cane, Wheelchair, Crutches, etc.)? No PATIENT GENDER DATA: Female. status: : No status: NO. PATIENT RELEVANT IMPLANT DATA REVIEWED: Yes RADIOLOGY DEPARTMENT: CT; Exam(s) Completed: Chest PERIPHERAL IV DATA: Not applicable SIGNED BY: RT Francisco J(R) February 06, 2023 3:59 PM documented in this encounter [facility] 02-05-2023 Note HNO ID: [id number] Author: Francesco Foley APRN.MANAGER COST Service: ? Author Type: Nurse Practitioner Type: Progress Notes Filed: 02/05/2023 2:16 PM Note Text: LUNG SCREENING VISIT PRIMARY CARE PHYSICIAN: Jose Carlos Jones MD PULMONARY PROVIDER: Dr. Karime Dickerson Results will be communicated via letter or electronic record if applicable. Visit Delivery: In Person Patient Visit Type: New to Screening Current or Ex-smoker? [Current Exam Type: baseline LDCT Number of Pack Years: 64.5 Current smoker (=0) REQUESTER: The referring provider advised the patient to have screening. HISTORY OF PRESENT ILLNESS: Bonny Ennis is a 62 year old Active smoker who presents for lung screening. Smoking 3-4 cigarettes and does not smoke the whole cigarette at once. Respiratory symptoms include: SOB: Yes, showering sometimes, walking, carrying something, pushing a vacuum Chest tightness: No Coughing: No, sometimes, coughs up jelly balls Hemoptysis: No Wheezing: Yes Fever/Chills: No Recent Respiratory Infection: No Unintentional weight loss: No, In 2018 lost 20 lbs, recently has been improving. Last 12 Encounter Wt Readings: Date: Wt: 02/05/2023 47.6 kg (105 lb) 11/20/2022 46.3 kg (102 lb) 10/22/2022 48.4 kg (106 lb 9.6 oz) 10/08/2022 48.1 kg (106 lb) 08/02/2022 49.4 kg (109 lb) 05/23/2022 45.8 kg (101 lb) 04/12/2022 46.7 kg (103 lb) 03/20/2022 45.8 kg (101 lb) 03/16/2022 47.2 kg (104 lb) 02/06/2022 44.9 kg (99 lb) 02/06/2022 45.1 kg (99 lb 8 oz) 01/06/2022 44.5 kg (98 lb)] ECOG PERFORMANCE STATUS: 2- Ambulatory and capable of all selfcare; unable to carry out work activities. Up and about > 50% of waking hrs. Modified Medical Research [place] Dyspnea Scale (MMRC) I am too breathless to leave the house or I am breathless when dressing 4 PAST MEDICAL HISTORY Diagnosis Date Alcohol abuse 02/26/2014 Anal fissure and fistula Anorexia nervosa Anxiety 02/26/2014 Bilateral shoulder pain 10/09/2013 BPV (benign positional vertigo) 08/27/2016 Chronic bilateral low back pain with sciatica 08/23/2015 COPD, severe (HCC) 10/03/2016 Depression 02/26/2014 DJD (degenerative joint disease), lumbar 07/22/2015 Dyslipidemia 10/14/2018 Eating disorder Essential hypertension 08/27/2016 GERD (gastroesophageal reflux disease) 02/26/2014 Irritable bowel syndrome Irritable bowel Liver cyst 03/16/2022 Migraine with aura and without status migrainosus, not intractable 08/27/[address] Carroll Mitral valve disorders(424.0) Multiple lung nodules on CT 09/28/2015 Obsessive-compulsive disorders VAIBHAV (obstructive sleep apnea) 08/27/2016 On CPAP PAH (pulmonary artery hypertension) (HCC) 02/06/2022 Post concussion syndrome 08/06/2014 Sees Neurology Smoker 02/26/2014 1-1 1/2 PPD since 19 yo. Trigeminal neuralgia 10/09/2013 Unspecified hemorrhoids without mention of complication Hemorrhoids Vitamin B12 deficiency 03/22/2022 PAST SURGICAL HISTORY Procedure Laterality Date 2D ECHO (EXEP) 11/16/2017 EF=65% mild pulm HTN no valve issues. CHOLECYSTECTOMY 2004 PAST SURGICAL HISTORY OF ANAL FISTULA REPAIR PAST SURGICAL HISTORY OF 2009 left clavicle fracture ORIF PAST SURGICAL HISTORY OF dental surgery TONSILLECTOMY PRIMARY/SECONDARY Tonsillectomy FAMILY HISTORY Problem Relation Age of Onset Heart Mother Hypertension Mother COPD Mother Heart Father COPD Brother other (HTN) Brother Lung Cancer Maternal Uncle albuterol HFA (PROVENTIL HFA, VENTOLIN HFA) 90 mcg/actuation inhalerInhale 2 Puffs as instructed every 4 hours as needed. For Wheezing/Shortness of BreathDisp: 1 EachRfl: 5 lansoprazole (PREVACID) 30 mg capsuleTake 1 capsule by mouth daily before breakfast. 1/2 hr before meal.Disp: 90 capsuleRfl: 1 lisinopril (ZESTRIL) 10 mg tabletTake 1 tablet by mouth once daily.Disp: 90 tabletRfl: 1 ipratropium-albuterol (DUONEB) 0.5 mg-3 mg(2.5 mg base)/3 mL nebuInhale 3 mL as instructed every 4 hours as needed for wheezing/shortness of breath.Disp: 120 EachRfl: 5 guaiFENesin (MUCINEX) 600 mg 12 hr tabletTake 2 tablets by mouth twice daily.Disp: 120 tabletRfl: 2 albuterol (PROVENTIL) 2.5 mg /3 mL (0.083 %) nebulizer solutionUse 3 mL via nebulizer three times daily as needed for wheezing/shortness of breath. OVER 5-15 MINUTES. FOR WHEEZING AND SHORTNESS OF BREATH.Disp: 300 mLRfl: 5 ipratropium (ATROVENT) 0.02 % nebulizer solutionUse 2.5 mL via nebulizer four times daily as needed. OVER 5-15 MINUTES FOR WHEEZING OR SHORTNESS OF BREATHDisp: 300 mLRfl: 5 albuterol (PROVENTIL) 2.5 mg /3 mL (0.083 %) nebulizer solutionUse 3 mL via nebulizer every 4 hours as needed for wheezing/shortness of breath. OVER 5-15 MINUTES. FOR WHEEZING AND SHORTNESS OF BREATH.Disp: 120 mLRfl: 5 ipratropium (ATROVENT) 0.02 % nebulizer solutionUse 2.5 mL via nebulizer four times daily. OVER 5-15 MINUTES FOR WHEEZING OR SHORTNESS OF BREATHDisp: 120 mLRf (more content not included)... [facility] 02-05-2023 Instructions Francesco Foley APRN.[facility] - 02/05/2023 1:[address] Lung Screen Results The CT scan that you will have done will show if you have any nodules (small spots) in your lungs that are suspicious for cancer. Around 90% of the patients who have this scan done are found to have at least one nodule. Most nodules are benign (not cancer) and of no harm to you at all. A specialist will make a scientific evaluation about whether or not a nodule is worrisome based on its size and shape. The radiologist who will read your scan will put it into one of four categories: LUNG-RADS Category Description Overall Probability of Malignancy Recommended Follow-Up 1 Negative No nodules and definitely benign (non-cancerous nodules) Essentially 0. 1 Year - Follow-up Low dose CT 2 Benign Appearance or Behavior Nodules with a very low likelihood of becoming cancer due to size or lack of growth Less than 1% 1 Year - Follow-up Low dose CT 3 Probably Benign Probably benign finding, short term follow-up recommended 1 to 2% 6 Months - Follow-up CT 4 A,B,or X Suspicious Findings for which additional diagnostic testing and/or biopsy is recommended Will be calculated based on nodule characteristics. Dependent on what is seen on the exam. [address], PET, Biopsy At times, we may see something outside of the lungs on the scan that could be a health concern. Below are some of the most common findings: S Clinically Significant or Potentially Clinically Significant Findings (non lung cancer) Referral or additional imaging/labs depending on result. Approximately 10% of people receive this result. Coronary Artery Calcifications (Moderate or Severe) - Referral to cardiology or PCP for further work-up and recommendations. Thyroid Nodule - TSH level and Thyroid Ultrasound dependent on size, referral to endocrinology. Adrenal Nodule - Blood work and referral to endocrinology. Others Lung Cancer Screening hotline: [phone] Lung Cancer Screening [phone] Billing Questions: or [email or web address] Lung Cancer Screening Team: Portia Montgomery CNP; Shaunna Benitez PA-C; Maxine Henry CNP; Yamile Marrufo CNP, Aruna Forrester PA-C, Paige Pond PA-C, Francesco Foley, MANAGER COST : [phone] documented in this encounter [facility] 02-05-2023 History of Present illness Narrative Images from the original note were not included. LUNG SCREENING VISIT PRIMARY CARE PHYSICIAN: Jose Carlos Jones MD PULMONARY PROVIDER: Dr. Karime Dickerson Results will be communicated via letter or electronic record if applicable. Visit Delivery: In Person Patient Visit Type: New to Screening Current or Ex-smoker? [Current Exam Type: baseline LDCT Number of Pack Years: 64.5 Current smoker (=0) REQUESTER: The referring provider advised the patient to have screening. HISTORY OF PRESENT ILLNESS: Bonny Ennis is a 62 year old Active smoker who presents for lung screening. Smoking 3-4 cigarettes and does not smoke the whole cigarette at once. Respiratory symptoms include: SOB: Yes, showering sometimes, walking, carrying something, pushing a vacuum Chest tightness: No Coughing: No, sometimes, coughs up jelly balls Hemoptysis: No Wheezing: Yes Fever/Chills: No Recent Respiratory Infection: No Unintentional weight loss: No, In 2018 lost 20 lbs, recently has been improving. Last 12 Encounter Wt Readings: Date: Wt: 02/05/2023 47.6 kg (105 lb) 11/20/2022 46.3 kg (102 lb) 10/22/2022 48.4 kg (106 lb 9.6 oz) 10/08/2022 48.1 kg (106 lb) 08/02/2022 49.4 kg (109 lb) 05/23/2022 45.8 kg (101 lb) 04/12/2022 46.7 kg (103 lb) 03/20/2022 45.8 kg (101 lb) 03/16/2022 47.2 kg (104 lb) 02/06/2022 44.9 kg (99 lb) 02/06/2022 45.1 kg (99 lb 8 oz) 01/06/2022 44.5 kg (98 lb)] ECOG PERFORMANCE STATUS: 2- Ambulatory and capable of all selfcare; unable to carry out work activities. Up and about > 50% of waking hrs. Modified Medical Research [place] Dyspnea Scale (MMRC) I am too breathless to leave the house or I am breathless when dressing 4 PAST MEDICAL HISTORY Diagnosis Date Alcohol abuse 02/26/2014 Anal fissure and fistula Anorexia nervosa Anxiety 02/26/2014 Bilateral shoulder pain 10/09/2013 BPV (benign positional vertigo) 08/27/2016 Chronic bilateral low back pain with sciatica 08/23/2015 COPD, severe (HCC) 10/03/2016 Depression 02/26/2014 DJD (degenerative joint disease), lumbar 07/22/2015 Dyslipidemia 10/14/2018 Eating disorder Essential hypertension 08/27/2016 GERD (gastroesophageal reflux disease) 02/26/2014 Irritable bowel syndrome Irritable bowel Liver cyst 03/16/2022 Migraine with aura and without status migrainosus, not intractable 08/27/[address] Carroll Mitral valve disorders(424.0) Multiple lung nodules on CT 09/28/2015 Obsessive-compulsive disorders VAIBHAV (obstructive sleep apnea) 08/27/2016 On CPAP PAH (pulmonary artery hypertension) (HCC) 02/06/2022 Post concussion syndrome 08/06/2014 Sees Neurology Smoker 02/26/2014 1-1 1/2 PPD since 19 yo. Trigeminal neuralgia 10/09/2013 Unspecified hemorrhoids without mention of complication Hemorrhoids Vitamin B12 deficiency 03/22/2022 PAST SURGICAL HISTORY Procedure Laterality Date 2D ECHO (EXEP) 11/16/2017 EF=65% mild pulm HTN no valve issues. CHOLECYSTECTOMY 2004 PAST SURGICAL HISTORY OF ANAL FISTULA REPAIR PAST SURGICAL HISTORY OF 2009 left clavicle fracture ORIF PAST SURGICAL HISTORY OF dental surgery TONSILLECTOMY PRIMARY/SECONDARY <AGE 12 Tonsillectomy FAMILY HISTORY Problem Relation Age of Onset Heart Mother Hypertension Mother COPD Mother Heart Father COPD Brother other (HTN) Brother Lung Cancer Maternal Uncle albuterol HFA (PROVENTIL HFA, VENTOLIN HFA) 90 mcg/actuation inhaler^Inhale 2 Puffs as instructed every 4 hours as needed. For Wheezing/Shortness of Breath^Disp: 1 Each^Rfl: 5 lansoprazole (PREVACID) 30 mg capsule^Take 1 capsule by mouth daily before breakfast. 1/2 hr before meal.^Disp: 90 capsule^Rfl: 1 lisinopril (ZESTRIL) 10 mg tablet^Take 1 tablet by mouth once daily.^Disp: 90 tablet^Rfl: 1 ipratropium-albuterol (DUONEB) 0.5 mg-3 mg(2.5 mg base)/3 mL nebu^Inhale 3 mL as instructed every 4 hours as needed for wheezing/shortness of breath.^Disp: 120 Each^Rfl: 5 guaiFENesin (MUCINEX) 600 mg 12 hr tablet^Take 2 tablets by mouth twice daily.^Disp: 120 tablet^Rfl: 2 albuterol (PROVENTIL) 2.5 mg /3 mL (0.083 %) nebulizer solution^Use 3 mL via nebulizer three times daily as needed for wheezing/shortness of breath. OVER 5-15 MINUTES. FOR WHEEZING AND SHORTNESS OF BREATH.^Disp: 300 mL^Rfl: 5 ipratropium (ATROVENT) 0.02 % nebulizer solution^Use 2.5 mL via nebulizer four times daily as needed. OVER 5-15 MINUTES FOR WHEEZING OR SHORTNESS OF BREATH^Disp: 300 mL^Rfl: 5 albuterol (PROVENTIL) 2.5 mg /3 mL (0.083 %) nebulizer solution^Use 3 mL via nebulizer every 4 hours as needed for wheezing/shortness of breath. OVER 5-15 MINUTES. FOR WHEEZING AND SHORTNESS OF BREATH.^Disp: 120 mL^Rfl: 5 ipratropium (ATROVENT) 0.02 % nebulizer solution^Use 2.5 mL via nebulizer four times daily. OVER 5-15 MINUTES FOR WHEEZING OR SHORTNESS OF BREATH^Disp: 120 mL^Rfl: 5 fgmmklghsix-plamemapr-gopztpqy (TRELEGY ELLIPTA) 100-62.5-25 mcg inhalation powder^Inhale 1 Puff as instructed once daily.^Disp: 1 Each^Rfl: 11 cyanocobalamin (VITAMIN B-12) 1,000 mcg tab^Take 1 tablet by mouth once daily.^Disp: ^Rfl: hydrOXYzine pamoate (VISTARIL) 25 mg capsule^Take 1 capsule by mouth three times daily as needed.^Disp: 90 capsule^Rfl: 0 meclizine (ANTIVERT) 25 mg tab^Take 1/2 to 1 tab by mouth every 8 hrs for dizziness.^Disp: 30 tablet^Rfl: 2 acetaminophen (TYLENOL) 325 mg tablet^Take 500 mg by mouth every 6 hours as needed. Take (2) 500 mg tablet every 6 hours as needed.^Disp: ^Rfl: ALLERGIES Allergen Reactions Latex Rash Singulair [Monteluk* Other: See Comments Nightmares Meloxicam GI Upset Nabumetone Shortness of Breath Novacaine [Other] Unknown Spiriva Respimat [T* Other: See Comments Urinary issues Sulfa (Sulfonamide * Unknown The medications and allergies were reviewed and reconciled for this patient and deemed current. Lung Cancer Risk Factors: 1.Tobacco Use: Start Age 19, Quit Age: N/A, Average packs per day 1.5, Pack Years 64.5 2. Passive Smoke Exposure: Yes, as an Adult 3. Personal hx of malignancy: No, Type of Cancer: 4. Significant exposures (1 year or more of exposure): Other, cleaning chemicals, apple orchard 5. Race: White 6. Education: High School Graduate 7. BMI:Body mass index is 17.47 kg/m . Patient-entered Height: 5'5 Patient-entered Weight: 105 pounds 8. COPD: Yes 9. Pneumonia in the past 5 years: Yes 10. Is there a history of lung cancer in a first degree relative? No 11. Is there a history of lung cancer in a non-first degree relative? Yes 12. Is there a history of any other cancer in a first degree relative? No Health Maintenance Immunization History Administered Date(s) Administered COVID-19 original vaccine, age 12+ yr, monovalent (PFIZER-BIONTECH - HERNANDEZ TOP) 11/10/2021 COVID-19 original vaccine, age 12+ yr, monovalent (PFIZER-BIONTECH - PURPLE TOP) 07/04/2020 08/05/2020 02/15/2021 COVID-19 vaccine, age 12+ yr, bivalent (PFIZER-BIONTECH) 02/10/2022 influenza (IIV3) vaccine, age 3+ yr, trivalent (AFLURIA, FLULAVAL, FLUVIRIN, FLUZONE) 02/13/2017 influenza (IIV4) vaccine, age 6 mo - 64 yr, quadrivalent (AFLURIA, FLULAVAL, FLUZONE) 01/05/2015 12/28/2015 01/10/2018 influenza (IIV4) vaccine, age 6 mo - 64 yr, quadrivalent, PF (AFLURIA, FLUARIX, FLULAVAL, FLUZONE) 02/15/2021 02/03/2022 pneumococcal (PPV23) vaccine, 23 valent (PNEUMOVAX 23) 03/25/2017 02/03/2022 tetanus diphtheria pertussis (Tdap) vaccine, age 7+ yr (ADACEL, BOOSTRIX) 08/06/2014 Colonoscopy: Mammogram: 12/12/2016 DATA REVIEW I have directly visualized the testing documented:02/16/2022 CT Chest Prior Imaging: Last CT/CTA Chest/Lungs CT CHEST WO IVCON Exam End: 02/16/2022 2:11 PM (Final result) Narrative: * * *Final Report* * * DATE OF EXAM: Feb 16 2022 2:11PM [facility] 0541 - CT CHEST WO IVCON / PROCEDURE REASON: Lung nodules * * * * Physician Interpretation * * * * EXAMINATION: CHEST CT WITHOUT CONTRAST CLINICAL HISTORY: Lung nodules. Technique: Spiral CT acquisition of the chest from the thoracic inlet to the upper abdomen without contrast. MQ: [id number] CT Radiation dose: Integrated Dose-length product (DLP) for this visit = 118 mGy*cm CT Dose Reduction Employed: Automated exposure control(AEC) and iterative recon Comparison: CT chest on 06/17/2018 RESULT: Limitations: None. Lines, tubes, and devices: None. Lung parenchyma and airways: The central airways are patent. Diffuse bronchial wall thickening is demonstrated in the bilateral lungs. The lungs are remarkable for severe centrilobular and paraseptal emphysema. A few stable lung nodules are visualized. For example, there are nodules in the left lung measuring up to 7 mm, series 6 images 39, 67, 107, 115, 117 and 170. There are nodules in the right lung measuring up to 3.5 mm, series 6 images 67 and a 92. Some of these nodules may represent intrapulmonary lymph nodes. No new nodules identified. No masses. Stable biapical scarring and subpleural opacities, likely post inflammatory. Pleural space: No pleural effusions or pneumothorax. Lower neck, lymph nodes, and mediastinum: Stable thyroid gland. No supraclavicular, axillary or mediastinal lymphadenopathy. Heart, pericardium, and thoracic vessels: Stable cardiac chambers, thoracic aorta and central pulmonary arteries. No pericardial effusion/thickening. Punctate calcifications seen in the left coronary circulation. Bones and soft tissues: Stable chest wall soft tissue. Interval T12 vertebral body compression deformity/age indeterminate fracture. L1 and L2 vertebral body mild compression deformities are also visualized. The bones are somewhat osteopenic. The spine shows degenerative changes. Upper abdomen: Images study through the upper abdomen demonstrates no interval changes. There are multiple low-attenuation lesions or cysts in the liver measuring up to 2 cm, unchanged. Cut Out Worker (topogram) images: No additional findings. Impression: IMPRESSION: Stable bilateral lung nodules. No new or enlarging nodules identified. Severe emphysema. Other findings as described above. Home Health Aide Caregiver: ZOË Transcribe Date/Time: Feb 19 2022 9:27A Dictated by : SHASHI GOMEZ MD This examination was interpreted and the report reviewed and electronically signed by: SHASHI GOMEZ MD on Feb 19 2022 10:04AM EST Last CT Chest - Impression Only CT CHEST WO IVCON Exam End: 02/16/2022 2:11 PM (Final result) Impression: IMPRESSION: Stable bilateral lung nodules. No new or enlarging nodules identified. Severe emphysema. Other findings as described above. ... Last XR Chest - Impression Only XR RIBS/CHEST 3V AP RIB/OBLS/CXR RT Exam End: 10/21/2018 12:13 PM (Final result) Impression: IMPRESSION: No acute finding Home Health Aide Caregiver: ZOË Transcribe Date/Time: Oct 22 2018 3:56P ... Pulmonary Function Testing: SPIROMETRY - BASELINE AND POST DILATOR ([id number]) - ordered on 02/06/22 [id number] [facility], [place] [address] Test Date: 2022-02-06 Pat Name: BONNY ENNIS Department: Room: Gender: Female Chip Mucker: : 1960 Requested By: Order Number: [id number] Reading MD: Gillian Dickerson M.D. Interpretive Statements 4 puffs Albuterol (360 mcg) delivered by MDI via holding chamber. HR Pre= 107/min, HR Post= 104 /min. The two largest FVCs were not repeatable on pre bronchodilator trials. IMPRESSION: Spirometry indicates severe obstruction. There was not a significant bronchodilator response. Electronically Signed On 02-06-2022 16:50:15 EDT by Gillian Dickerson M.D. Site: WO ID: [id number] Name: BONNY ENNIS Visit Date: 02/06/2022 Doctor: Chip Mucker: Heidi Guaman Age: 61 Date of : 1960 Gender: Female Race: White Height: 64.50 in Weight: 99.50 lbs BSA: 1.462 Diagnosis: COPD Dyspnea: Cough: Wheeze: Tobacco Product: Cigarette Years Smoked: Packs/Day: Years Quit: Medications: Comments: 4 puffs Albuterol (360 mcg) delivered by MDI via holding chamber. HR Pre= 107/min, HR Post= 104 /min. The two largest FVCs were not repeatable on pre bronchodilator trials. Review Status: Not Reviewed PRE-BRONCH POST-BRONCH Pred LLN ULN Actual %Pred Actual %Chng SPIROMETRY FVC (L) 3.17 2.39 3.99 2.53 79 2.44 -3 FEV1 (L) 2.49 1.87 3.08 0.93 37 0.98 5 FEV1/FVC 0.79 0.67 0.89 0.37 46 0.40 9 FEF25 (L/sec) 0.72 0.77 7 FEF50 (L/sec) 3.34 1.73 4.95 0.20 5 0.30 51 FEF75 (L/sec) 0.62 0.24 1.48 0.15 24 0.17 14 VFQ88-74 (L/sec) 2.22 1.12 3.72 0.27 12 0.29 7 PEF L/s (L/sec) 6.27 4.54 8.01 1.87 29 2.35 25 FIVC (L) 2.30 2.26 -1 FIF50 (L/sec) 1.93 2.60 34 PIF (L/sec) 2.57 2.65 3 Time (sec) 12.54 11.65 -7 DAVE (L) 0.08 0.08 -7 FET PEF (sec) 0.12 0.11 -12 PHYSICAL EXAM: BP 122/80 Pulse 82 Wt 47.6 kg (105 lb) LMP 08/31/2007 SpO2 94% BMI 17.47 kg/m Deferred ASSESSMENT and RECOMMENDATIONS: 1. Screening for lung cancer: Six year risk for lung cancer: 7.23% Https://Nine Star.Leo/[place] Citizen/ result/[email or web address]_yes_[email or web address]/[email or web address]://youtu.be/[email or web address] I have determined that the patient is eligible for a low dose CT based on age, absence of signs or symptoms of lung cancer, and total pack years: Yes. The patient and I engaged in shared decision making, including the use of one or more decision aids, to include benefits, harms, follow-up diagnostic testing, over-diagnosis, false positive rate, and total radiation exposure. The patient understands and feels comfortable with it: Yes. The patient was counseled on the importance of adherence to annual LDCT lung cancer screening, impact of comorbidities and ability or willingness to undergo diagnosis and treatment. The patient understands and feels comfortable with it:Yes. 2. Nicotine dependence: The patient was counseled on the importance of smoking cessation if current smoker and, if appropriate, offered additional tobacco cessation counseling services - Smoking Cessation Counseling. SMOKING CESSATION COUNSELING Smoking cessation methods including Nicotine Replacement Therapies and Behavior Modification were discussed with the patient and assistance offered. Pt is slowly reducing the amount she smokes daily. The medical conditions adversely affected by cigarette use include:COPD, Emphysema, and Lung Cancer. The patient is currently not ready to quit. I personally spent 3 minutes in counseling. The time spent in smoking cessation counseling is exclusive of any other counseling during this visit. Francesco Foley APRN.JUS NPI #: February 05, 2023 1:14 PM documented in this encounter [facility] 01-31-2023 Miscellaneous Notes Patient phones requesting refills as follows: Requested Prescriptions Pending Prescriptions Disp Refills albuterol HFA (PROVENTIL HFA, VENTOLIN HFA) 90 mcg/actuation inhaler 1 Each 5 Sig: Inhale 2 Puffs as instructed every 4 hours as needed. For Wheezing/Shortness of Breath Please review and advise. Maxine Hdz LPN documented in this encounter [facility] 11-20-2022 Note HNO ID: [id number] Author: Laverne Joel APRN.JUS Service: ? Author Type: Nurse Practitioner Type: Progress Notes Filed: 11/20/2022 1:04 PM Note Text: Chief Complaint Patient presents with: Physical HPI Bonny Ennis is a 62 year old female who presents here today for Above Complaints.. Patient presents for routine follow up. Patient recently seen by pulm who continued her current inhalers and encouraged smoking cessation. Patient reports she has not followed up with GI yet. Patient had previously found out she had liver nodules and was referred to Dr. Rodriguez at [facility]. Past medical history, appointments, medications, allergies reviewed. Previous Medical History PAST MEDICAL HISTORY Diagnosis Date Alcohol abuse 02/26/2014 Anal fissure and fistula Anorexia nervosa Anxiety 02/26/2014 Bilateral shoulder pain 10/09/2013 BPV (benign positional vertigo) 08/27/2016 Chronic bilateral low back pain with sciatica 08/23/2015 COPD, severe (HCC) 10/03/2016 Depression 02/26/2014 DJD (degenerative joint disease), lumbar 07/22/2015 Dyslipidemia 10/14/2018 Essential hypertension 08/27/2016 GERD (gastroesophageal reflux disease) 02/26/2014 Irritable bowel syndrome Irritable bowel Liver cyst 03/16/2022 Migraine with aura and without status migrainosus, not intractable 08/27/[address] Carroll Mitral valve disorders(424.0) Multiple lung nodules on CT 09/28/2015 Obsessive-compulsive disorders VAIBHAV (obstructive sleep apnea) 08/27/2016 On CPAP PAH (pulmonary artery hypertension) (HCC) 02/06/2022 Post concussion syndrome 08/06/2014 Sees Neurology Smoker 02/26/2014 1-1 1/2 PPD since 19 yo. Trigeminal neuralgia 10/09/2013 Unspecified hemorrhoids without mention of complication Hemorrhoids Vitamin B12 deficiency 03/22/2022 Previous Surgical History PAST SURGICAL HISTORY Procedure Laterality Date 2D ECHO (EXEP) 11/16/2017 EF=65% mild pulm HTN no valve issues. CHOLECYSTECTOMY 2004 PAST SURGICAL HISTORY OF ANAL FISTULA REPAIR PAST SURGICAL HISTORY OF 2009 left clavicle fracture ORIF PAST SURGICAL HISTORY OF dental surgery TONSILLECTOMY PRIMARY/SECONDARY Tonsillectomy Family History FAMILY HISTORY Problem Relation Age of Onset Heart Mother Hypertension Mother COPD Mother Heart Father COPD Brother other (HTN) Brother Patient Allergies ALLERGIES Allergen Reactions Latex Rash Singulair [Monteluk* Other: See Comments Nightmares Meloxicam GI Upset Nabumetone Shortness of Breath Novacaine [Other] Unknown Spiriva Respimat [T* Other: See Comments Urinary issues Sulfa (Sulfonamide * Unknown Current Medications Current Outpatient Medications on File Prior to Visit Medication Sig ipratropium-albuterol (DUONEB) 0.5 mg-3 mg(2.5 mg base)/3 mL nebu Inhale 3 mL as instructed every 4 hours as needed for wheezing/shortness of breath. lansoprazole (PREVACID) 30 mg capsule Take 1 capsule by mouth daily before breakfast. 1/2 hr before meal. guaiFENesin (MUCINEX) 600 mg 12 hr tablet Take 2 tablets by mouth twice daily. albuterol (PROVENTIL) 2.5 mg /3 mL (0.083 %) nebulizer solution Use 3 mL via nebulizer three times daily as needed for wheezing/shortness of breath. OVER 5-15 MINUTES. FOR WHEEZING AND SHORTNESS OF BREATH. ipratropium (ATROVENT) 0.02 % nebulizer solution Use 2.5 mL via nebulizer four times daily as needed. OVER 5-15 MINUTES FOR WHEEZING OR SHORTNESS OF BREATH albuterol (PROVENTIL) 2.5 mg /3 mL (0.083 %) nebulizer solution Use 3 mL via nebulizer every 4 hours as needed for wheezing/shortness of breath. OVER 5-15 MINUTES. FOR WHEEZING AND SHORTNESS OF BREATH. ipratropium (ATROVENT) 0.02 % nebulizer solution Use 2.5 mL via nebulizer four times daily. OVER 5-15 MINUTES FOR WHEEZING OR SHORTNESS OF BREATH albuterol HFA (PROVENTIL HFA, VENTOLIN HFA) 90 mcg/actuation inhaler Inhale 2 Puffs as instructed every 4 hours as needed. For Wheezing/Shortness of Breath lisinopril (ZESTRIL, PRINIVIL) 10 mg tablet Take 1 tablet by mouth once daily. zmwsxrvxcyr-avehhtnkk-jzxbisah (TRELEGY ELLIPTA) 100-62.5-25 mcg inhalation powder Inhale 1 Puff as instructed once daily. cyanocobalamin (VITAMIN B-12) 1,000 mcg tab Take 1 tablet by mouth once daily. hydrOXYzine pamoate (VISTARIL) 25 mg capsule Take 1 capsule by mouth three times daily as needed. meclizine (ANTIVERT) 25 mg tab Take 1/2 to 1 tab by mouth every 8 hrs for dizziness. COMPOUNDED PRESCRIPTION Perform nocturnal oximetry on RA. DME: [employer]. (Patient not taking: Reported on 12/13/2021) acetaminophen (TYLENOL) 325 mg tablet Take 500 mg by mouth every 6 hours as needed. Take (2) 500 mg tablet every 6 hours as needed. Current Facility-Administered Medications on File Prior to Visit Medication perflutren lipid microspheres 1.3 mL in NaCl (PF) 0.9% 10 mL injection (DEFINITY) sodium chloride 0.9 % (flush) 10 mL (BD POSIFLUSH) Social History Social His (more content not included)... [facility] 11-20-2022 Instructions Laverne Joel APRN.CNP - 11/20/2022 1:03 PM EDT Continue current medications Follow up with Dr. Rodriguez as directed Follow up with Dr. Jones in 6 months for annual exam documented in this encounter [facility] 11-20-2022 History of Present illness Narrative Chief Complaint Patient presents with: Physical HPI Bonny Ennis is a 62 year old female who presents here today for Above Complaints.. Patient presents for routine follow up. Patient recently seen by pulm who continued her current inhalers and encouraged smoking cessation. Patient reports she has not followed up with GI yet. Patient had previously found out she had liver nodules and was referred to Dr. Rodriguez at [facility]. Past medical history, appointments, medications, allergies reviewed. Previous Medical History PAST MEDICAL HISTORY Diagnosis Date Alcohol abuse 02/26/2014 Anal fissure and fistula Anorexia nervosa Anxiety 02/26/2014 Bilateral shoulder pain 10/09/2013 BPV (benign positional vertigo) 08/27/2016 Chronic bilateral low back pain with sciatica 08/23/2015 COPD, severe (HCC) 10/03/2016 Depression 02/26/2014 DJD (degenerative joint disease), lumbar 07/22/2015 Dyslipidemia 10/14/2018 Essential hypertension 08/27/2016 GERD (gastroesophageal reflux disease) 02/26/2014 Irritable bowel syndrome Irritable bowel Liver cyst 03/16/2022 Migraine with aura and without status migrainosus, not intractable 08/27/[address] Carroll Mitral valve disorders(424.0) Multiple lung nodules on CT 09/28/2015 Obsessive-compulsive disorders VAIBHAV (obstructive sleep apnea) 08/27/2016 On CPAP PAH (pulmonary artery hypertension) (HCC) 02/06/2022 Post concussion syndrome 08/06/2014 Sees Neurology Smoker 02/26/2014 1-1 1/2 PPD since 19 yo. Trigeminal neuralgia 10/09/2013 Unspecified hemorrhoids without mention of complication Hemorrhoids Vitamin B12 deficiency 03/22/2022 Previous Surgical History PAST SURGICAL HISTORY Procedure Laterality Date 2D ECHO (EXEP) 11/16/2017 EF=65% mild pulm HTN no valve issues. CHOLECYSTECTOMY 2004 PAST SURGICAL HISTORY OF ANAL FISTULA REPAIR PAST SURGICAL HISTORY OF 2009 left clavicle fracture ORIF PAST SURGICAL HISTORY OF dental surgery TONSILLECTOMY PRIMARY/SECONDARY <AGE 12 Tonsillectomy Family History FAMILY HISTORY Problem Relation Age of Onset Heart Mother Hypertension Mother COPD Mother Heart Father COPD Brother other (HTN) Brother Patient Allergies ALLERGIES Allergen Reactions Latex Rash Singulair [Monteluk* Other: See Comments Nightmares Meloxicam GI Upset Nabumetone Shortness of Breath Novacaine [Other] Unknown Spiriva Respimat [T* Other: See Comments Urinary issues Sulfa (Sulfonamide * Unknown Current Medications Current Outpatient Medications on File Prior to Visit Medication Sig ipratropium-albuterol (DUONEB) 0.5 mg-3 mg(2.5 mg base)/3 mL nebu Inhale 3 mL as instructed every 4 hours as needed for wheezing/shortness of breath. lansoprazole (PREVACID) 30 mg capsule Take 1 capsule by mouth daily before breakfast. 1/2 hr before meal. guaiFENesin (MUCINEX) 600 mg 12 hr tablet Take 2 tablets by mouth twice daily. albuterol (PROVENTIL) 2.5 mg /3 mL (0.083 %) nebulizer solution Use 3 mL via nebulizer three times daily as needed for wheezing/shortness of breath. OVER 5-15 MINUTES. FOR WHEEZING AND SHORTNESS OF BREATH. ipratropium (ATROVENT) 0.02 % nebulizer solution Use 2.5 mL via nebulizer four times daily as needed. OVER 5-15 MINUTES FOR WHEEZING OR SHORTNESS OF BREATH albuterol (PROVENTIL) 2.5 mg /3 mL (0.083 %) nebulizer solution Use 3 mL via nebulizer every 4 hours as needed for wheezing/shortness of breath. OVER 5-15 MINUTES. FOR WHEEZING AND SHORTNESS OF BREATH. ipratropium (ATROVENT) 0.02 % nebulizer solution Use 2.5 mL via nebulizer four times daily. OVER 5-15 MINUTES FOR WHEEZING OR SHORTNESS OF BREATH albuterol HFA (PROVENTIL HFA, VENTOLIN HFA) 90 mcg/actuation inhaler Inhale 2 Puffs as instructed every 4 hours as needed. For Wheezing/Shortness of Breath lisinopril (ZESTRIL, PRINIVIL) 10 mg tablet Take 1 tablet by mouth once daily. umypwvtmhts-oudqmgdfb-zlqxalvb (TRELEGY ELLIPTA) 100-62.5-25 mcg inhalation powder Inhale 1 Puff as instructed once daily. cyanocobalamin (VITAMIN B-12) 1,000 mcg tab Take 1 tablet by mouth once daily. hydrOXYzine pamoate (VISTARIL) 25 mg capsule Take 1 capsule by mouth three times daily as needed. meclizine (ANTIVERT) 25 mg tab Take 1/2 to 1 tab by mouth every 8 hrs for dizziness. COMPOUNDED PRESCRIPTION Perform nocturnal oximetry on RA. DME: [employer]. (Patient not taking: Reported on 12/13/2021) acetaminophen (TYLENOL) 325 mg tablet Take 500 mg by mouth every 6 hours as needed. Take (2) 500 mg tablet every 6 hours as needed. Current Facility-Administered Medications on File Prior to Visit Medication perflutren lipid microspheres 1.3 mL in NaCl (PF) 0.9% 10 mL injection (DEFINITY) sodium chloride 0.9 % (flush) 10 mL (BD POSIFLUSH) Social History Social History Tobacco Use Smoking status: Every Day Packs/day: 0.25 Years: 30.00 Total pack years: 7.50 Types: Cigarettes Start date: 1979 Smokeless tobacco: Never Tobacco comments: Current 5-7 cigarettes a day Former 1 ppd smoker Vaping Use Vaping Use: Never used Substance Use Topics Alcohol use: No Drug use: No Review of Symptoms REVIEW OF SYSTEMS SEE HPI EXAM: BP 104/70 Pulse 60 Resp 14 Wt 46.3 kg (102 lb) LMP 08/31/2007 BMI 16.97 kg/m General Appearance: Well appearing, alert, in no acute distress, well-hydrated, well nourished.. Skin: Skin color, texture, turgor normal, no suspicious rashes or lesions. Lungs: Lungs clear to auscultation. No wheezing, rhonchi, rales.. Heart: RRR without murmur, gallop, or rubs. No ectopy. Abdomen: Normal abdominal exam, Abdomen soft, non-tender. Bowel sounds normal. No masses, organomegaly Peripheral Pulses: Normal. Neurologic: Gait normal. Reflexes normal and symmetric. Sensation grossly intact.. Health Maintenance List COLORECTAL CANCER SCREENING Never done SHINGRIX VACCINE(1 of 2) Never done MAMMOGRAM due on 12/12/2017 PAP TESTING due on 10/04/2020 HPV TESTING due on 10/04/2020 INFLUENZA(1) due on 12/14/2022 PNEUMOCOCCAL(2 - PCV) due on 02/03/2023 ANNUAL PCP TEAM CHRONIC DISEASE VISIT due on 08/03/2023 BP CONTROLLED (<130/80) due on 10/23/2023 DTAP,TDAP,TD(2 - Td or Tdap) due on 08/06/2024 DIABETES SCREEN due on 03/16/2025 LIPID SCREEN due on 03/16/2027 ALPHA-1 ANTITRYPSIN DEFICIENCY SCREENING Completed SPIROMETRY Completed HEPATITIS C SCREENING Completed HIV SCREENING Completed COVID-19 VACCINE Completed ASSESSMENT/PLAN: 1. Stage 3 severe COPD by GOLD classification (HCC) - ICD9: 496, ICD10: J44.9 (primary diagnosis) -Stable, follows with Dr. Dickerson 2. Essential hypertension - ICD9: 401.9, ICD10: I10 - Controlled - Continue current medications - Recommend home blood pressure monitoring, to bring results to next visit - Encouraged sodium restriction, DASH or Mediterranean diet - Recommend regular aerobic exercise - Smoking cessation encouraged; discussed risks to health and quitting strategies. Patient is not ready to quit - LISINOPRIL 10 MG TABLET 3. Gastroesophageal reflux disease without esophagitis - ICD9: 530.81, ICD10: K21.9 - Discussed lifestyle modifications including losing weight, limiting caffeine, no meals three hours before sleep, and head of bed elevation - Continue treatment with Prevacid 30 mg QD - LANSOPRAZOLE 30 MG CAPSULE,DELAYED RELEASE 4. VAIBHAV (obstructive sleep apnea) - ICD9: 327.23, ICD10: G47.33 -Noncompliant with Cpap 5. Multiple lung nodules on CT - ICD9: 793.19, ICD10: R91.8 -Ordered by Dr. Dickerson 6. Smoker - ICD9: 305.1, ICD10: F17.200 - Cessation encouraged. - Physiologic and physical aspects of tobacco addiction as well as strategies for quitting were discussed. - Counseling was given focusing on the harmful effects of this addiction especially given the patient's medical condition(s) which will be worsened because of the chemicals in tobacco. Laverne Joel APRN.MANAGER COST documented in this encounter [facility] 10-22-2022 Note HNO ID: [id number] Author: Gillian Dickerson MD Service: ? Author Type: Physician Type: Progress Notes Filed: 10/22/2022 4:36 PM Note Text: . Respiratory Jackson Note Patient name: Bonny Ennis PCP: Jose Carlos Jones MD CC: Follow-up COPD HPI: Bonny Ennis 62 year old female smoker with PMH significant for alcohol abuse, severe COPD (FEV1 37%), GERD, HTN, VAIBHAV on CPAP. Current therapy with Trelegy Ellipta and as needed Duoneb. Lung nodules stable for two year but still qualifies for LDCT for cancer screening and will be due in Jan of this year. From a respiratory standpoint she states she is doing fairly well. Main symptom is dyspnea. No recent URI or hospitalization. Denies significant sputum production or wheezing. No need for albuterol. Unfortunately she continues to smoke, down to 5-7 cigarettes a day. No true desire to quit smoking altogether. DATA: PFT 01/2022: Review of PFTs shows fixed severe obstruction Imaging / Diagnostic Studies: DATE OF EXAM: Feb 16 2022 2:11PM [facility] 0541 - CT CHEST WO IVCON / PROCEDURE REASON: Lung nodules CLINICAL HISTORY: Lung nodules. Comparison: CT chest on 06/17/2018 RESULT: Limitations: None. Lines, tubes, and devices: None. Lung parenchyma and airways: The central airways are patent. Diffuse bronchial wall thickening is demonstrated in the bilateral lungs. The lungs are remarkable for severe centrilobular and paraseptal emphysema. A few stable lung nodules are visualized. For example, there are nodules in the left lung measuring up to 7 mm, series 6 images 39, 67, 107, 115, 117 and 170. There are nodules in the right lung measuring up to 3.5 mm, series 6 images 67 and a 92. Some of these nodules may represent intrapulmonary lymph nodes. No new nodules identified. No masses. Stable biapical scarring and subpleural opacities, likely post inflammatory. Pleural space: No pleural effusions or pneumothorax. Lower neck, lymph nodes, and mediastinum: Stable thyroid gland. No supraclavicular, axillary or mediastinal lymphadenopathy. Heart, pericardium, and thoracic vessels: Stable cardiac chambers, thoracic aorta and central pulmonary arteries. No pericardial effusion/thickening. Punctate calcifications seen in the left coronary circulation. Bones and soft tissues: Stable chest wall soft tissue. Interval T12 vertebral body compression deformity/age indeterminate fracture. L1 and L2 vertebral body mild compression deformities are also visualized. The bones are somewhat osteopenic. The spine shows degenerative changes. Upper abdomen: Images study through the upper abdomen demonstrates no interval changes. There are multiple low-attenuation lesions or cysts in the liver measuring up to 2 cm, unchanged. IMPRESSION: Stable bilateral lung nodules. No new or enlarging nodules identified. Severe emphysema. Other findings as described above. I personally reviewed the images and agree with the above assessment PAST MEDICAL HISTORY Diagnosis Date Alcohol abuse 02/26/2014 Anal fissure and fistula Anorexia nervosa Anxiety 02/26/2014 Bilateral shoulder pain 10/09/2013 BPV (benign positional vertigo) 08/27/2016 Chronic bilateral low back pain with sciatica 08/23/2015 COPD, severe (HCC) 10/03/2016 Depression 02/26/2014 DJD (degenerative joint disease), lumbar 07/22/2015 Dyslipidemia 10/14/2018 Essential hypertension 08/27/2016 GERD (gastroesophageal reflux disease) 02/26/2014 Irritable bowel syndrome Irritable bowel Liver cyst 03/16/2022 Migraine with aura and without status migrainosus, not intractable 08/27/[address] Carroll Mitral valve disorders(424.0) Multiple lung nodules on CT 09/28/2015 Obsessive-compulsive disorders VAIBHAV (obstructive sleep apnea) 08/27/2016 On CPAP PAH (pulmonary artery hypertension) (HCC) 02/06/2022 Post concussion syndrome 08/06/2014 Sees Neurology Smoker 02/26/2014 1-1 1/2 PPD since 19 yo. Trigeminal neuralgia 10/09/2013 Unspecified hemorrhoids without mention of complication Hemorrhoids Vitamin B12 deficiency 03/22/2022 ALLERGIES Allergen Reactions Latex Rash Singulair [Monteluk* Other: See Comments Nightmares Meloxicam GI Upset Nabumetone Shortness of Breath Novacaine [Other] Unknown Spiriva Respimat [T* Other: See Comments Urinary issues Sulfa (Sulfonamide * Unknown lansoprazole (PREVACID) 30 mg capsuleTake 1 capsule by mouth daily before breakfast. 1/2 hr before meal.Disp: 90 capsuleRfl: 1 guaiFENesin (MUCINEX) 600 mg 12 hr tabletTake 2 tablets by mouth twice daily.Disp: 120 tabletRfl: 2 albuterol (PROVENTIL) 2.5 mg /3 mL (0.083 %) nebulizer solutionUse 3 mL via nebulizer three times daily as needed for wheezing/shortness of breath. OVER 5-15 MINUTES. FOR WHEEZING AND SHORTNESS OF BREATH.Disp: 300 mLRfl: 5 ipratropium (ATROVENT) 0.02 % nebulizer solutionUse 2.5 mL via nebulizer four times (more content not included)... [facility] 10-08-2022 Note HNO ID: [id number] Author: NIRMAL Hernandez Service: ? Author Type: Physician Animal Humane Agent Supervisor Type: Progress Notes Filed: 10/08/2022 7:56 PM Note Text: This note was created using Threat Stack. Subjective Bonny Ennis is a 62 year old female. HPI 62-year-old female presents for vaginal irritation, some swelling and itching/burning. Patient was concerned she may have a UTI. She states symptoms started this morning. She states that her vagina feels swollen and has a burning sensation. She did touch the area and thought she may have scratched herself. She had a little bit of burning with urination. No hematuria. No recent antibiotic use. No fevers. No other complaints. PAST MEDICAL HISTORY Diagnosis Date Alcohol abuse 02/26/2014 Anal fissure and fistula Anorexia nervosa Anxiety 02/26/2014 Bilateral shoulder pain 10/09/2013 BPV (benign positional vertigo) 08/27/2016 Chronic bilateral low back pain with sciatica 08/23/2015 COPD, severe (HCC) 10/03/2016 Depression 02/26/2014 DJD (degenerative joint disease), lumbar 07/22/2015 Dyslipidemia 10/14/2018 Essential hypertension 08/27/2016 GERD (gastroesophageal reflux disease) 02/26/2014 Irritable bowel syndrome Irritable bowel Liver cyst 03/16/2022 Migraine with aura and without status migrainosus, not intractable 08/27/[address] Carroll Mitral valve disorders(424.0) Multiple lung nodules on CT 09/28/2015 Obsessive-compulsive disorders VAIBHAV (obstructive sleep apnea) 08/27/2016 On CPAP PAH (pulmonary artery hypertension) (HCC) 02/06/2022 Post concussion syndrome 08/06/2014 Sees Neurology Smoker 02/26/2014 1-1 1/2 PPD since 19 yo. Trigeminal neuralgia 10/09/2013 Unspecified hemorrhoids without mention of complication Hemorrhoids Vitamin B12 deficiency 03/22/2022 PAST SURGICAL HISTORY Procedure Laterality Date 2D ECHO (EXEP) 11/16/2017 EF=65% mild pulm HTN no valve issues. CHOLECYSTECTOMY 2004 PAST SURGICAL HISTORY OF ANAL FISTULA REPAIR PAST SURGICAL HISTORY OF 2009 left clavicle fracture ORIF PAST SURGICAL HISTORY OF dental surgery TONSILLECTOMY PRIMARY/SECONDARY Tonsillectomy ALLERGIES Latex, Singulair [Montelukast], Meloxicam, Nabumetone, Novacaine [Other], Spiriva Respimat [Tiotropium [place]], and Sulfa (Sulfonamide Antibiotics) MEDICATIONS lansoprazole (PREVACID) 30 mg capsuleTake 1 capsule by mouth daily before breakfast. 1/2 hr before meal.Disp: 90 capsuleRfl: 1 guaiFENesin (MUCINEX) 600 mg 12 hr tabletTake 2 tablets by mouth twice daily.Disp: 120 tabletRfl: 2 albuterol (PROVENTIL) 2.5 mg /3 mL (0.083 %) nebulizer solutionUse 3 mL via nebulizer three times daily as needed for wheezing/shortness of breath. OVER 5-15 MINUTES. FOR WHEEZING AND SHORTNESS OF BREATH.Disp: 300 mLRfl: 5 ipratropium (ATROVENT) 0.02 % nebulizer solutionUse 2.5 mL via nebulizer four times daily as needed. OVER 5-15 MINUTES FOR WHEEZING OR SHORTNESS OF BREATHDisp: 300 mLRfl: 5 albuterol (PROVENTIL) 2.5 mg /3 mL (0.083 %) nebulizer solutionUse 3 mL via nebulizer every 4 hours as needed for wheezing/shortness of breath. OVER 5-15 MINUTES. FOR WHEEZING AND SHORTNESS OF BREATH.Disp: 120 mLRfl: 5 albuterol HFA (PROVENTIL HFA, VENTOLIN HFA) 90 mcg/actuation inhalerInhale 2 Puffs as instructed every 4 hours as needed. For Wheezing/Shortness of BreathDisp: 1 EachRfl: 5 lisinopril (ZESTRIL, PRINIVIL) 10 mg tabletTake 1 tablet by mouth once daily.Disp: 30 tabletRfl: 5 tvgqyekuejp-nbjryctjj-tzvibfdw (TRELEGY ELLIPTA) 100-62.5-25 mcg inhalation powderInhale 1 Puff as instructed once daily.Disp: 1 EachRfl: 11 cyanocobalamin (VITAMIN B-12) 1,000 mcg tabTake 1 tablet by mouth once daily.Disp: Rfl: hydrOXYzine pamoate (VISTARIL) 25 mg capsuleTake 1 capsule by mouth three times daily as needed.Disp: 90 capsuleRfl: 0 meclizine (ANTIVERT) 25 mg tabTake 1/2 to 1 tab by mouth every 8 hrs for dizziness.Disp: 30 tabletRfl: 2 acetaminophen (TYLENOL) 325 mg tabletTake 500 mg by mouth every 6 hours as needed. Take (2) 500 mg tablet every 6 hours as needed.Disp: Rfl: Miconazole Nitrate (MONISTAT 3) 200 mg/5 gram (4 %) creaUse 1 Applicator vaginally once daily for 3 days.Disp: 25 gRfl: 0 ipratropium (ATROVENT) 0.02 % nebulizer solutionUse 2.5 mL via nebulizer four times daily. OVER 5-15 MINUTES FOR WHEEZING OR SHORTNESS OF BREATHDisp: 120 mLRfl: 5 COMPOUNDED PRESCRIPTIONPerform nocturnal oximetry on RA. DME: [employer].Disp: 1 EachRfl: 0 (Patient not taking: Reported on 12/13/2021) FAMILY HISTORY Problem Relation Age of Onset Heart Mother Hypertension Mother COPD Mother Heart Father COPD Brother other (HTN) Brother Social History Tobacco Use Smoking status: Every Day Packs/day: 1.50 Years: 30.00 Pack years: 45.00 Types: Cigarettes Start date: 1979 Smokeless tobacco: Never Tobacco comments: Current 4 cigarettes a day Vaping Use Vaping Use: Never used Substance Use Topics (more content not included)... [facility] 10-08-2022 History of Present illness Narrative This note was created using NoteWriter. Subjective Bonny Ennis is a 62 year old female. HPI 62-year-old female presents for vaginal irritation, some swelling and itching/burning. Patient was concerned she may have a UTI. She states symptoms started this morning. She states that her vagina feels swollen and has a burning sensation. She did touch the area and thought she may have scratched herself. She had a little bit of burning with urination. No hematuria. No recent antibiotic use. No fevers. No other complaints. PAST MEDICAL HISTORY Diagnosis Date Alcohol abuse 02/26/2014 Anal fissure and fistula Anorexia nervosa Anxiety 02/26/2014 Bilateral shoulder pain 10/09/2013 BPV (benign positional vertigo) 08/27/2016 Chronic bilateral low back pain with sciatica 08/23/2015 COPD, severe (HCC) 10/03/2016 Depression 02/26/2014 DJD (degenerative joint disease), lumbar 07/22/2015 Dyslipidemia 10/14/2018 Essential hypertension 08/27/2016 GERD (gastroesophageal reflux disease) 02/26/2014 Irritable bowel syndrome Irritable bowel Liver cyst 03/16/2022 Migraine with aura and without status migrainosus, not intractable 08/27/[address] Carroll Mitral valve disorders(424.0) Multiple lung nodules on CT 09/28/2015 Obsessive-compulsive disorders VAIBHAV (obstructive sleep apnea) 08/27/2016 On CPAP PAH (pulmonary artery hypertension) ([facility]) 02/06/2022 Post concussion syndrome 08/06/2014 Sees Neurology Smoker 02/26/2014 1-1 1/2 PPD since 19 yo. Trigeminal neuralgia 10/09/2013 Unspecified hemorrhoids without mention of complication Hemorrhoids Vitamin B12 deficiency 03/22/2022 PAST SURGICAL HISTORY Procedure Laterality Date 2D ECHO (EXEP) 11/16/2017 EF=65% mild pulm HTN no valve issues. CHOLECYSTECTOMY 2004 PAST SURGICAL HISTORY OF ANAL FISTULA REPAIR PAST SURGICAL HISTORY OF 2010 left clavicle fracture ORIF PAST SURGICAL HISTORY OF dental surgery TONSILLECTOMY PRIMARY/SECONDARY <AGE 12 Tonsillectomy ALLERGIES Latex, Singulair [Montelukast], Meloxicam, Nabumetone, Novacaine [Other], Spiriva Respimat [Tiotropium [place]], and Sulfa (Sulfonamide Antibiotics) MEDICATIONS lansoprazole (PREVACID) 30 mg capsule^Take 1 capsule by mouth daily before breakfast. 1/2 hr before meal.^Disp: 90 capsule^Rfl: 1 guaiFENesin (MUCINEX) 600 mg 12 hr tablet^Take 2 tablets by mouth twice daily.^Disp: 120 tablet^Rfl: 2 albuterol (PROVENTIL) 2.5 mg /3 mL (0.083 %) nebulizer solution^Use 3 mL via nebulizer three times daily as needed for wheezing/shortness of breath. OVER 5-15 MINUTES. FOR WHEEZING AND SHORTNESS OF BREATH.^Disp: 300 mL^Rfl: 5 ipratropium (ATROVENT) 0.02 % nebulizer solution^Use 2.5 mL via nebulizer four times daily as needed. OVER 5-15 MINUTES FOR WHEEZING OR SHORTNESS OF BREATH^Disp: 300 mL^Rfl: 5 albuterol (PROVENTIL) 2.5 mg /3 mL (0.083 %) nebulizer solution^Use 3 mL via nebulizer every 4 hours as needed for wheezing/shortness of breath. OVER 5-15 MINUTES. FOR WHEEZING AND SHORTNESS OF BREATH.^Disp: 120 mL^Rfl: 5 albuterol HFA (PROVENTIL HFA, VENTOLIN HFA) 90 mcg/actuation inhaler^Inhale 2 Puffs as instructed every 4 hours as needed. For Wheezing/Shortness of Breath^Disp: 1 Each^Rfl: 5 lisinopril (ZESTRIL, PRINIVIL) 10 mg tablet^Take 1 tablet by mouth once daily.^Disp: 30 tablet^Rfl: 5 xtmslgeduqz-brutcnmkj-ozolsmsq (TRELEGY ELLIPTA) 100-62.5-25 mcg inhalation powder^Inhale 1 Puff as instructed once daily.^Disp: 1 Each^Rfl: 11 cyanocobalamin (VITAMIN B-12) 1,000 mcg tab^Take 1 tablet by mouth once daily.^Disp: ^Rfl: hydrOXYzine pamoate (VISTARIL) 25 mg capsule^Take 1 capsule by mouth three times daily as needed.^Disp: 90 capsule^Rfl: 0 meclizine (ANTIVERT) 25 mg tab^Take 1/2 to 1 tab by mouth every 8 hrs for dizziness.^Disp: 30 tablet^Rfl: 2 acetaminophen (TYLENOL) 325 mg tablet^Take 500 mg by mouth every 6 hours as needed. Take (2) 500 mg tablet every 6 hours as needed.^Disp: ^Rfl: Miconazole Nitrate (MONISTAT 3) 200 mg/5 gram (4 %) crea^Use 1 Applicator vaginally once daily for 3 days.^Disp: 25 g^Rfl: 0 ipratropium (ATROVENT) 0.02 % nebulizer solution^Use 2.5 mL via nebulizer four times daily. OVER 5-15 MINUTES FOR WHEEZING OR SHORTNESS OF BREATH^Disp: 120 mL^Rfl: 5 COMPOUNDED PRESCRIPTION^Perform nocturnal oximetry on RA. DME: [employer].^Disp: 1 Each^Rfl: 0 (Patient not taking: Reported on 12/13/2021) FAMILY HISTORY Problem Relation Age of Onset Heart Mother Hypertension Mother COPD Mother Heart Father COPD Brother other (HTN) Brother Social History Tobacco Use Smoking status: Every Day Packs/day: 1.50 Years: 30.00 Pack years: 45.00 Types: Cigarettes Start date: 1979 Smokeless tobacco: Never Tobacco comments: Current 4 cigarettes a day Vaping Use Vaping Use: Never used Substance Use Topics Alcohol use: No Drug use: No Review of Systems Constitutional: Negative for chills and fever. HENT: Negative for congestion, ear pain and sore throat. Respiratory: Negative for cough and shortness of breath. Cardiovascular: Negative for chest pain. Gastrointestinal: Negative for diarrhea and vomiting. Genitourinary: Positive for dysuria and vaginal pain (Irritation/burning). Negative for vaginal discharge. Objective BP 118/72 Pulse 96 Temp 36.9 C (98.4 F) Resp 16 Wt 48.1 kg (106 lb) LMP 08/31/2007 SpO2 98% BMI 17.91 kg/m Physical Exam Vitals and nursing note reviewed. Exam conducted with a solution design engineer present. Constitutional: General: She is not in acute distress. Appearance: Normal appearance. She is not toxic-appearing. Cardiovascular: Rate and Rhythm: Normal rate and regular rhythm. Pulmonary: Effort: Pulmonary effort is normal. Breath sounds: Normal breath sounds. Abdominal: General: Abdomen is flat. Palpations: Abdomen is soft. Tenderness: There is no abdominal tenderness. Genitourinary: Labia: Right: Tenderness present. Left: Tenderness present. Comments: Patient has some labial tenderness with erythema/irritation. She has a little bit of white discharge noted. No rash. Skin: General: Skin is warm and dry. Neurological: Mental Status: She is alert. Assessment and Plan ASSESSMENT/PLAN: 1. Burning with urination - ICD9: 788.1, ICD10: R30.0 (primary diagnosis) -UA normal. We will send urine for culture. -Treat if urine culture comes back positive. - UA DIP, URINE (POC) - URINE CULTURE 2. Marta vaginitis - ICD9: 112.1, ICD10: B37.31 -Suspect candidal vaginitis. Due to medication interactions, will treat topically with Monistat instead of Diflucan. -Rx Monistat sent to pharmacy. Diagnosis and treatment plan were discussed and questions were answered to the patient's satisfaction. Pt acknowledged understanding of concepts and follow up plan. Specific signs and symptoms that would indicate the need for higher level of care were discussed in detail warranting prompt ER evaluation. NIRMAL Hernandez documented in this encounter [facility] 10-08-2022 Miscellaneous Notes The following approved medication requests have been transmitted electronically. Requested Prescriptions Signed Prescriptions Disp Refills lansoprazole (PREVACID) 30 mg capsule 90 capsule 1 Sig: Take 1 capsule by mouth daily before breakfast. 1/2 hr before meal. Authorizing Provider: JOSE CARLOS JONES MD Last office visit: 08/02/22 F/u scheduled: 11/20/22 Miriam Solis Ma Patient has been identified by name and date of : Yes Last office visit in this department: 08/02/2022 RX INSTRUCTIONS: Patient aware RX will be sent to pharmacy. No need to notify patient. Patient phones requesting refills as follows: Requested Prescriptions Pending Prescriptions Disp Refills lansoprazole (PREVACID) 30 mg capsule 90 capsule 1 Sig: Take 1 capsule by mouth daily before breakfast. 1/2 hr before meal. Please review and advise. Sangeeta Galarza documented in this encounter [facility] 09-19-2022 Note Patient Outreach (IN [facility]) BONNY ENNIS ([id number]) 1960 F Date Time Provider Department 09/19/22 JOSE CARLOS JONES During your visit today, we recorded the following information about you: Allergies As of Date: 09/19/2022 Noted Allergy Reaction LATEX 03/16/2014 2 - Rash Comments: SINGULAIR (MONTELUKAST) 07/19/2022 14 - Other: See Comments Comments: Nightmares MELOXICAM 07/22/2015 8 - GI Upset NABUMETONE 09/06/2016 12 - Shortness of Breath novacaine [Other] 07/24/2005 16 - Unknown SPIRIVA RESPIMAT (TIOTROPIUM BROM*11/01/2017 14 - Other: See Comments Comments: Urinary issues SULFA (SULFONAMIDE ANTIBIOTICS) 07/24/2005 16 - Unknown Date Reviewed: 08/02/2022 Reviewed by: Yunior Curry ASSOCIATE SOFTWARE ENGINEER - Fully Assessed Visit Diagnosis:Encounter for screening mammogram for breast cancer [Z12.31] Order(s):[facility] SCREENING [[id number]] Order #: [id number] FUTURE Prescriptions as of 09/24/2022 - guaiFENesin (MUCINEX) 600 mg 12 hr tablet Take 2 tablets by mouth twice daily. - albuterol (PROVENTIL) 2.5 mg /3 mL (0.083 %) nebulizer solution Use 3 mL via nebulizer three times daily as needed for wheezing/shortness of breath. OVER 5-15 MINUTES. FOR WHEEZING AND SHORTNESS OF BREATH. - ipratropium (ATROVENT) 0.02 % nebulizer solution Use 2.5 mL via nebulizer four times daily as needed. OVER 5-15 MINUTES FOR WHEEZING OR SHORTNESS OF BREATH - albuterol (PROVENTIL) 2.5 mg /3 mL (0.083 %) nebulizer solution Use 3 mL via nebulizer every 4 hours as needed for wheezing/shortness of breath. OVER 5-15 MINUTES. FOR WHEEZING AND SHORTNESS OF BREATH. - ipratropium (ATROVENT) 0.02 % nebulizer solution Use 2.5 mL via nebulizer four times daily. OVER 5-15 MINUTES FOR WHEEZING OR SHORTNESS OF BREATH - albuterol HFA (PROVENTIL HFA, VENTOLIN HFA) 90 mcg/actuation inhaler Inhale 2 Puffs as instructed every 4 hours as needed. For Wheezing/Shortness of Breath - lisinopril (ZESTRIL, PRINIVIL) 10 mg tablet Take 1 tablet by mouth once daily. - tzauwfdaoow-cdupjzsza-cbotczbe (TRELEGY ELLIPTA) 100-62.5-25 mcg inhalation powder Inhale 1 Puff as instructed once daily. - cyanocobalamin (VITAMIN B-12) 1,000 mcg tab Take 1 tablet by mouth once daily. - hydrOXYzine pamoate (VISTARIL) 25 mg capsule Take 1 capsule by mouth three times daily as needed. - lansoprazole (PREVACID) 30 mg capsule Take 1 capsule by mouth daily before breakfast. 1/2 hr before meal. - meclizine (ANTIVERT) 25 mg tab Take 1/2 to 1 tab by mouth every 8 hrs for dizziness. - COMPOUNDED PRESCRIPTION Perform nocturnal oximetry on RA. DME: [employer]. - acetaminophen (TYLENOL) 325 mg tablet Take 500 mg by mouth every 6 hours as needed. Take (2) 500 mg tablet every 6 hours as needed. Facility-Administered Medications as of 09/24/2022 - perflutren lipid microspheres 1.3 mL in NaCl (PF) 0.9% 10 mL injection (DEFINITY) - sodium chloride 0.9 % (flush) 10 mL (BD POSIFLUSH) Meds Comments as of 12/30/2016: 12/30/16: Not taking celebrex. MS Problem List As Of Date 09/19/2022 Noted Resolved Bilateral shoulder pain [M25.511, M25.512] 10/09/2013 Trigeminal neuralgia [G50.0] 10/09/2013 Smoker [F17.200] 02/26/2014 GERD (gastroesophageal reflux disease) [K21.9] 02/26/2014 Depression [F32.A] 02/26/2014 Anxiety [F41.9] 02/26/2014 Alcohol abuse [F10.10] 02/26/2014 Post concussion syndrome [F07.81] 08/06/2014 Dizziness [R42] 08/06/2014 09/28/2015 DJD (degenerative joint disease), lumbar [M47.8*07/22/2015 Chronic bilateral low back pain with sciatica [*08/23/[address] [R91.8] 09/28/2015 Essential hypertension [I10] 08/27/2016 Migraine with aura and without status migrainos*08/27/2016 VAIBHAV (obstructive sleep apnea) [G47.33] 08/27/2016 BPV (benign positional vertigo) [H81.10] 08/27/2016 Encounter for gynecological examination without*08/27/2016 Stage 3 severe COPD by GOLD classification (HCC*10/03/2016 Dyslipidemia [E78.5] 10/14/2018 Encounter for screening mammogram for breast ca*10/14/2018 Irritable bowel syndrome [K58.9] PAH (pulmonary artery hypertension) (HCC) [I27.*02/06/2022 Thrombocytopenia (HCC) [D69.6] 03/16/2022 Medication management [Z79.899] 03/16/2022 Liver cyst [K76.89] 03/16/2022 Vitamin B12 deficiency [E53.8] 03/22/2022 Encounter Status:Closed by RUBY BARAJASUSER on 09/24/22 [facility] 08-13-2022 Miscellaneous Notes Patient phones requesting refills as follows: Patient states she feels her energy levels are low. Tired and and weak. Pulse Ox has been running between 95-96% Feels her nebulizer solutions are not helping. Requested Prescriptions Pending Prescriptions Disp Refills guaiFENesin (MUCINEX) 600 mg 12 hr tablet 120 tablet 2 Sig: Take 2 tablets by mouth twice daily. Please review and advise. Melody Goncalves Ma documented in this encounter [facility] 08-02-2022 Note HNO ID: [id number] Author: Rashida Andrade PA-C Service: ? Author Type: Physician Animal Humane Agent Supervisor Type: Progress Notes Filed: 08/02/2022 2:04 PM Note Text: Chief Complaint Patient presents with: Recheck: Blood pressure HPI Bonny Ennis is a 62 year old female who presents here today for recheck bP. At last visit patient was having symptomatic low BP. HCTZ was stopped. She does feel better. States having less lightheadedness. Her home machine doesn't work. Past medical history, appointments, medications, allergies reviewed. Previous Medical History PAST MEDICAL HISTORY Diagnosis Date Alcohol abuse 02/26/2014 Anal fissure and fistula Anorexia nervosa Anxiety 02/26/2014 Bilateral shoulder pain 10/09/2013 BPV (benign positional vertigo) 08/27/2016 Chronic bilateral low back pain with sciatica 08/23/2015 COPD, severe (HCC) 10/03/2016 Depression 02/26/2014 DJD (degenerative joint disease), lumbar 07/22/2015 Dyslipidemia 10/14/2018 Essential hypertension 08/27/2016 GERD (gastroesophageal reflux disease) 02/26/2014 Irritable bowel syndrome Irritable bowel Liver cyst 03/16/2022 Migraine with aura and without status migrainosus, not intractable 08/27/[address] Carroll Mitral valve disorders(424.0) Multiple lung nodules on CT 09/28/2015 Obsessive-compulsive disorders VAIBHAV (obstructive sleep apnea) 08/27/2016 On CPAP PAH (pulmonary artery hypertension) (HCC) 02/06/2022 Post concussion syndrome 08/06/2014 Sees Neurology Smoker 02/26/2014 1-1 1/2 PPD since 19 yo. Trigeminal neuralgia 10/09/2013 Unspecified hemorrhoids without mention of complication Hemorrhoids Vitamin B12 deficiency 03/22/2022 Previous Surgical History PAST SURGICAL HISTORY Procedure Laterality Date 2D ECHO (EXEP) 11/16/2017 EF=65% mild pulm HTN no valve issues. CHOLECYSTECTOMY 2004 PAST SURGICAL HISTORY OF ANAL FISTULA REPAIR PAST SURGICAL HISTORY OF 2009 left clavicle fracture ORIF PAST SURGICAL HISTORY OF dental surgery TONSILLECTOMY PRIMARY/SECONDARY Tonsillectomy Family History FAMILY HISTORY Problem Relation Age of Onset Heart Mother Hypertension Mother COPD Mother Heart Father COPD Brother other (HTN) Brother Patient Allergies ALLERGIES Allergen Reactions Latex Rash Singulair [[place]el[place]* Other: See Comments Nightmares Meloxicam GI Upset Nabumetone Shortness of Breath Novacaine [Other] Unknown Spiriva Respimat [T* Other: See Comments Urinary issues Sulfa (Sulfonamide * Unknown Current Medications Current Outpatient Medications on File Prior to Visit Medication Sig albuterol (PROVENTIL) 2.5 mg /3 mL (0.083 %) nebulizer solution Use 3 mL via nebulizer three times daily as needed for wheezing/shortness of breath. OVER 5-15 MINUTES. FOR WHEEZING AND SHORTNESS OF BREATH. ipratropium (ATROVENT) 0.02 % nebulizer solution Use 2.5 mL via nebulizer four times daily as needed. OVER 5-15 MINUTES FOR WHEEZING OR SHORTNESS OF BREATH albuterol (PROVENTIL) 2.5 mg /3 mL (0.083 %) nebulizer solution Use 3 mL via nebulizer every 4 hours as needed for wheezing/shortness of breath. OVER 5-15 MINUTES. FOR WHEEZING AND SHORTNESS OF BREATH. ipratropium (ATROVENT) 0.02 % nebulizer solution Use 2.5 mL via nebulizer four times daily. OVER 5-15 MINUTES FOR WHEEZING OR SHORTNESS OF BREATH albuterol HFA (PROVENTIL HFA, VENTOLIN HFA) 90 mcg/actuation inhaler Inhale 2 Puffs as instructed every 4 hours as needed. For Wheezing/Shortness of Breath lisinopril (ZESTRIL, PRINIVIL) 10 mg tablet Take 1 tablet by mouth once daily. omsqinvdbal-fnhufkoim-gvihrnbx (TRELEGY ELLIPTA) 100-62.5-25 mcg inhalation powder Inhale 1 Puff as instructed once daily. cyanocobalamin (VITAMIN B-12) 1,000 mcg tab Take 1 tablet by mouth once daily. hydrOXYzine pamoate (VISTARIL) 25 mg capsule Take 1 capsule by mouth three times daily as needed. lansoprazole (PREVACID) 30 mg capsule Take 1 capsule by mouth daily before breakfast. 1/2 hr before meal. guaiFENesin (MUCINEX) 600 mg 12 hr tablet Take 2 tablets by mouth twice daily. meclizine (ANTIVERT) 25 mg tab Take 1/2 to 1 tab by mouth every 8 hrs for dizziness. acetaminophen (TYLENOL) 325 mg tablet Take 500 mg by mouth every 6 hours as needed. Take (2) 500 mg tablet every 6 hours as needed. COMPOUNDED PRESCRIPTION Perform nocturnal oximetry on RA. DME: [employer]. (Patient not taking: Reported on 12/13/2021) Current Facility-Administered Medications on File Prior to Visit Medication perflutren lipid microspheres 1.3 mL in NaCl (PF) 0.9% 10 mL injection (DEFINITY) sodium chloride 0.9 % (flush) 10 mL (BD POSIFLUSH) Social History Social History Tobacco Use Smoking status: Every Day Packs/day: 1.50 Years: 30.00 Pack years: 45.00 Types: Cigarettes Start date: 1979 Smokeless tobacco: Never Tobacco comments: Current 4 cigarettes a day Vaping Use Vaping Use: Never used Substance Use Topics (more content not included)... [facility] 08-02-2022 History of Present illness Narrative Chief Complaint Patient presents with: Recheck: Blood pressure HPI Bonny Ennis is a 62 year old female who presents here today for recheck bP. At last visit patient was having symptomatic low BP. HCTZ was stopped. She does feel better. States having less lightheadedness. Her home machine doesn't work. Past medical history, appointments, medications, allergies reviewed. Previous Medical History PAST MEDICAL HISTORY Diagnosis Date Alcohol abuse 02/26/2014 Anal fissure and fistula Anorexia nervosa Anxiety 02/26/2014 Bilateral shoulder pain 10/09/2013 BPV (benign positional vertigo) 08/27/2016 Chronic bilateral low back pain with sciatica 08/23/2015 COPD, severe (HCC) 10/03/2016 Depression 02/26/2014 DJD (degenerative joint disease), lumbar 07/22/2015 Dyslipidemia 10/14/2018 Essential hypertension 08/27/2016 GERD (gastroesophageal reflux disease) 02/26/2014 Irritable bowel syndrome Irritable bowel Liver cyst 03/16/2022 Migraine with aura and without status migrainosus, not intractable 08/27/[address] Carroll Mitral valve disorders(424.0) Multiple lung nodules on CT 09/28/2015 Obsessive-compulsive disorders VAIBHAV (obstructive sleep apnea) 08/27/2016 On CPAP PAH (pulmonary artery hypertension) (HCC) 02/06/2022 Post concussion syndrome 08/06/2014 Sees Neurology Smoker 02/26/2014 1-1 1/2 PPD since 19 yo. Trigeminal neuralgia 10/09/2013 Unspecified hemorrhoids without mention of complication Hemorrhoids Vitamin B12 deficiency 03/22/2022 Previous Surgical History PAST SURGICAL HISTORY Procedure Laterality Date 2D ECHO (EXEP) 11/16/2017 EF=65% mild pulm HTN no valve issues. CHOLECYSTECTOMY 2004 PAST SURGICAL HISTORY OF ANAL FISTULA REPAIR PAST SURGICAL HISTORY OF 2009 left clavicle fracture ORIF PAST SURGICAL HISTORY OF dental surgery TONSILLECTOMY PRIMARY/SECONDARY <AGE 12 Tonsillectomy Family History FAMILY HISTORY Problem Relation Age of Onset Heart Mother Hypertension Mother COPD Mother Heart Father COPD Brother other (HTN) Brother Patient Allergies ALLERGIES Allergen Reactions Latex Rash Singulair [[place]* Other: See Comments Nightmares Meloxicam GI Upset Nabumetone Shortness of Breath Novacaine [Other] Unknown Spiriva Respimat [T* Other: See Comments Urinary issues Sulfa (Sulfonamide * Unknown Current Medications Current Outpatient Medications on File Prior to Visit Medication Sig albuterol (PROVENTIL) 2.5 mg /3 mL (0.083 %) nebulizer solution Use 3 mL via nebulizer three times daily as needed for wheezing/shortness of breath. OVER 5-15 MINUTES. FOR WHEEZING AND SHORTNESS OF BREATH. ipratropium (ATROVENT) 0.02 % nebulizer solution Use 2.5 mL via nebulizer four times daily as needed. OVER 5-15 MINUTES FOR WHEEZING OR SHORTNESS OF BREATH albuterol (PROVENTIL) 2.5 mg /3 mL (0.083 %) nebulizer solution Use 3 mL via nebulizer every 4 hours as needed for wheezing/shortness of breath. OVER 5-15 MINUTES. FOR WHEEZING AND SHORTNESS OF BREATH. ipratropium (ATROVENT) 0.02 % nebulizer solution Use 2.5 mL via nebulizer four times daily. OVER 5-15 MINUTES FOR WHEEZING OR SHORTNESS OF BREATH albuterol HFA (PROVENTIL HFA, VENTOLIN HFA) 90 mcg/actuation inhaler Inhale 2 Puffs as instructed every 4 hours as needed. For Wheezing/Shortness of Breath lisinopril (ZESTRIL, PRINIVIL) 10 mg tablet Take 1 tablet by mouth once daily. dctmedjnbea-wawgdhino-buoekjbo (TRELEGY ELLIPTA) 100-62.5-25 mcg inhalation powder Inhale 1 Puff as instructed once daily. cyanocobalamin (VITAMIN B-12) 1,000 mcg tab Take 1 tablet by mouth once daily. hydrOXYzine pamoate (VISTARIL) 25 mg capsule Take 1 capsule by mouth three times daily as needed. lansoprazole (PREVACID) 30 mg capsule Take 1 capsule by mouth daily before breakfast. 1/2 hr before meal. guaiFENesin (MUCINEX) 600 mg 12 hr tablet Take 2 tablets by mouth twice daily. meclizine (ANTIVERT) 25 mg tab Take 1/2 to 1 tab by mouth every 8 hrs for dizziness. acetaminophen (TYLENOL) 325 mg tablet Take 500 mg by mouth every 6 hours as needed. Take (2) 500 mg tablet every 6 hours as needed. COMPOUNDED PRESCRIPTION Perform nocturnal oximetry on RA. DME: [employer]. (Patient not taking: Reported on 12/13/2021) Current Facility-Administered Medications on File Prior to Visit Medication perflutren lipid microspheres 1.3 mL in NaCl (PF) 0.9% 10 mL injection (DEFINITY) sodium chloride 0.9 % (flush) 10 mL (BD POSIFLUSH) Social History Social History Tobacco Use Smoking status: Every Day Packs/day: 1.50 Years: 30.00 Pack years: 45.00 Types: Cigarettes Start date: 1979 Smokeless tobacco: Never Tobacco comments: Current 4 cigarettes a day Vaping Use Vaping Use: Never used Substance Use Topics Alcohol use: No Drug use: No Review of Symptoms REVIEW OF SYSTEMS GENERAL: No weight loss, malaise or fevers EXAM: BP 110/72 Pulse 70 Temp 36.4 C (97.6 F) Resp 16 Wt 49.4 kg (109 lb) LMP 08/31/2007 BMI 18.42 kg/m General Appearance: Well appearing, alert, in no acute distress, well-hydrated, well nourished.. Health Maintenance List COLORECTAL CANCER SCREENING Never done SHINGRIX VACCINE(1 of 2) Never done MAMMOGRAM due on 12/12/2017 PAP TESTING due on 10/04/2020 HPV TESTING due on 10/04/2020 PNEUMOCOCCAL(2 - PCV) due on 02/03/2023 LUNG CANCER SCREENING due on 02/16/2023 ANNUAL PCP TEAM CHRONIC DISEASE VISIT due on 05/23/2023 BP CONTROLLED (<130/80) due on 05/23/2023 DTAP,TDAP,TD(2 - Td or Tdap) due on 08/06/2024 DIABETES SCREEN due on 03/16/2025 LIPID SCREEN due on 03/16/2027 ALPHA-1 ANTITRYPSIN DEFICIENCY SCREENING Completed SPIROMETRY Completed INFLUENZA Completed HEPATITIS C SCREENING Completed HIV SCREENING Completed COVID-19 VACCINE Completed Data reviewed ASSESSMENT/PLAN: 1. Essential hypertension - ICD9: 401.9, ICD10: I10 - good control - Continue current medication(s) - Recommended regular aerobic exercise. - Recommend home blood pressure monitoring, to bring results in on next visit - Goal of BP <130/80 Follow up as scheduled Rashida Andrade PA-C documented in this encounter [facility] 07-19-2022 Miscellaneous Notes Patient notified re: same. Jaclyn Tang LPN Scripts sent to pharmacy. I took Singulair off of her medication list and listed it as an allergy secondary to side effects. Caroline Patient called. Verified name and date of . Patient attempted to refill Duoneb at [facility] but there is a shortage of a medication and she was advised to request order for both medications separately. Patient states she took the Singulair fora few weeks but didn't feel it was helping and it was giving her weird/uncomfortable dreams so she stopped taking it. Please review and advise. Maxine Hdz LPN documented in this encounter [facility] 05-23-2022 Note HNO ID: [id number] Author: Jose Carlos Jones MD Service: ? Author Type: Physician Type: Progress Notes Filed: 05/24/2022 5:12 PM Note Text: Chief Complaint Patient presents with: Follow Up: Patient is here 2 month follow up on RUQ pain HPI Bonny Tammi Ennis is a 62 year old female who presents here today for 2 month follow up on RUQ pain. Patient has appt with Gastro in July for her liver cysts and RUQ pain. Patient was placed on Prevacid 30 mg and initially said she felt her pain was more frequent and then was not able to tell me for sure. Not a good historian today. She has been noting some dizziness at times. No syncope. Patient is taking the B12 that was low on lab back in Mar 2022. Has a BM 3-4 times a day. Typical soft. Sometimes on the mushy side. No blood or melena. Past medical history, appointments, medications, allergies reviewed. Previous Medical History PAST MEDICAL HISTORY Diagnosis Date Alcohol abuse 02/26/2014 Anal fissure and fistula Anorexia nervosa Anxiety 02/26/2014 Bilateral shoulder pain 10/09/2013 BPV (benign positional vertigo) 08/27/2016 Chronic bilateral low back pain with sciatica 08/23/2015 COPD, severe (HCC) 10/03/2016 Depression 02/26/2014 DJD (degenerative joint disease), lumbar 07/22/2015 Dyslipidemia 10/14/2018 Essential hypertension 08/27/2016 GERD (gastroesophageal reflux disease) 02/26/2014 Irritable bowel syndrome Irritable bowel Liver cyst 03/16/2022 Migraine with aura and without status migrainosus, not intractable 08/27/[address] Carroll Mitral valve disorders(424.0) Multiple lung nodules on CT 09/28/2015 Obsessive-compulsive disorders VAIBHAV (obstructive sleep apnea) 08/27/2016 On CPAP PAH (pulmonary artery hypertension) (HCC) 02/06/2022 Post concussion syndrome 08/06/2014 Sees Neurology Smoker 02/26/2014 1-1 1/2 PPD since 19 yo. Trigeminal neuralgia 10/09/2013 Unspecified hemorrhoids without mention of complication Hemorrhoids Vitamin B12 deficiency 03/22/2022 Previous Surgical History PAST SURGICAL HISTORY Procedure Laterality Date 2D ECHO (EXEP) 11/16/2017 EF=65% mild pulm HTN no valve issues. CHOLECYSTECTOMY 2004 PAST SURGICAL HISTORY OF ANAL FISTULA REPAIR PAST SURGICAL HISTORY OF 2009 left clavicle fracture ORIF PAST SURGICAL HISTORY OF dental surgery TONSILLECTOMY PRIMARY/SECONDARY Tonsillectomy Family History FAMILY HISTORY Problem Relation Age of Onset Heart Mother Hypertension Mother COPD Mother Heart Father COPD Brother other (HTN) Brother Patient Allergies ALLERGIES Allergen Reactions Latex Rash Meloxicam GI Upset Nabumetone Shortness of Breath Novacaine [Other] Unknown Spiriva Respimat [T* Other: See Comments Urinary issues Sulfa (Sulfonamide * Unknown Current Medications Current Outpatient Medications on File Prior to Visit Medication Sig lisinopril-hydroCHLOROthiazide (PRINZIDE,ZESTORETIC) 10-12.5 mg per tablet Take 1 tablet by mouth once daily. albuterol HFA (PROVENTIL HFA, VENTOLIN HFA) 90 mcg/actuation inhaler Inhale 2 Puffs as instructed every 4 hours as needed. For Wheezing/Shortness of Breath kaoeucuuklw-bjmpmlulb-jgogsods (TRELEGY ELLIPTA) 100-62.5-25 mcg inhalation powder Inhale 1 Puff as instructed once daily. ipratropium-albuterol (DUONEB) 0.5 mg-3 mg(2.5 mg base)/3 mL nebu Inhale 3 mL as instructed every 6 hours as needed for wheezing/shortness of breath. montelukast (SINGULAIR) 10 mg tablet Take 1 tablet by mouth daily at bedtime. cyanocobalamin (VITAMIN B-12) 1,000 mcg tab Take 1 tablet by mouth once daily. hydrOXYzine pamoate (VISTARIL) 25 mg capsule Take 1 capsule by mouth three times daily as needed. lansoprazole (PREVACID) 30 mg capsule Take 1 capsule by mouth daily before breakfast. 1/2 hr before meal. guaiFENesin (MUCINEX) 600 mg 12 hr tablet Take 2 tablets by mouth twice daily. meclizine (ANTIVERT) 25 mg tab Take 1/2 to 1 tab by mouth every 8 hrs for dizziness. acetaminophen (TYLENOL) 325 mg tablet Take 500 mg by mouth every 6 hours as needed. Take (2) 500 mg tablet every 6 hours as needed. COMPOUNDED PRESCRIPTION Perform nocturnal oximetry on RA. DME: [employer]. (Patient not taking: Reported on 12/13/2021) Current Facility-Administered Medications on File Prior to Visit Medication perflutren lipid microspheres 1.3 mL in NaCl (PF) 0.9% 10 mL injection (DEFINITY) sodium chloride 0.9 % (flush) 10 mL (BD POSIFLUSH) Social History Social History Tobacco Use Smoking status: Every Day Packs/day: 1.50 Years: 30.00 Pack years: 45.00 Types: Cigarettes Start date: 1979 Smokeless tobacco: Never Tobacco comments: Current 4 cigarettes a day Vaping Use Vaping Use: Never used Substance Use Topics Alcohol use: No Drug use: No Review of Symptoms REVIEW OF SYSTEMS See HPI EXAM: BP 90/63 (BP Site: Right Arm, BP Position: Sitting, BP Cuff Size: Regular Adult) Pulse 8 (more content not included)... [facility] 05-23-2022 Instructions Jose Carlos Jones MD - 05/23/2022 3:03 PM EST Your Blood pressure is running low. Dr. Jones made a change in your medication called lisinopril/hydrochlorothiazide 10/12.5 mg once a day. He is taking away the hydrochlorothiazide component. You can use up your current script but he sent in a new script for just the lisinopril 10 mg a day. documented in this encounter [facility] 05-23-2022 History of Present illness Narrative Chief Complaint Patient presents with: Follow Up: Patient is here 2 month follow up on RUQ pain HPI Bonny Ennis is a 62 year old female who presents here today for 2 month follow up on RUQ pain. Patient has appt with Gastro in July for her liver cysts and RUQ pain. Patient was placed on Prevacid 30 mg and initially said she felt her pain was more frequent and then was not able to tell me for sure. Not a good historian today. She has been noting some dizziness at times. No syncope. Patient is taking the B12 that was low on lab back in Mar 2022. Has a BM 3-4 times a day. Typical soft. Sometimes on the mushy side. No blood or melena. Past medical history, appointments, medications, allergies reviewed. Previous Medical History PAST MEDICAL HISTORY Diagnosis Date Alcohol abuse 02/26/2014 Anal fissure and fistula Anorexia nervosa Anxiety 02/26/2014 Bilateral shoulder pain 10/09/2013 BPV (benign positional vertigo) 08/27/2016 Chronic bilateral low back pain with sciatica 08/23/2015 COPD, severe (HCC) 10/03/2016 Depression 02/26/2014 DJD (degenerative joint disease), lumbar 07/22/2015 Dyslipidemia 10/14/2018 Essential hypertension 08/27/2016 GERD (gastroesophageal reflux disease) 02/26/2014 Irritable bowel syndrome Irritable bowel Liver cyst 03/16/2022 Migraine with aura and without status migrainosus, not intractable 08/27/[address] Carroll Mitral valve disorders(424.0) Multiple lung nodules on CT 09/28/2015 Obsessive-compulsive disorders VAIBHAV (obstructive sleep apnea) 08/27/2016 On CPAP PAH (pulmonary artery hypertension) (HCC) 02/06/2022 Post concussion syndrome 08/06/2014 Sees Neurology Smoker 02/26/2014 1-1 1/2 PPD since 19 yo. Trigeminal neuralgia 10/09/2013 Unspecified hemorrhoids without mention of complication Hemorrhoids Vitamin B12 deficiency 03/22/2022 Previous Surgical History PAST SURGICAL HISTORY Procedure Laterality Date 2D ECHO (EXEP) 11/16/2017 EF=65% mild pulm HTN no valve issues. CHOLECYSTECTOMY 2004 PAST SURGICAL HISTORY OF ANAL FISTULA REPAIR PAST SURGICAL HISTORY OF 2009 left clavicle fracture ORIF PAST SURGICAL HISTORY OF dental surgery TONSILLECTOMY PRIMARY/SECONDARY <AGE 12 Tonsillectomy Family History FAMILY HISTORY Problem Relation Age of Onset Heart Mother Hypertension Mother COPD Mother Heart Father COPD Brother other (HTN) Brother Patient Allergies ALLERGIES Allergen Reactions Latex Rash Meloxicam GI Upset Nabumetone Shortness of Breath Novacaine [Other] Unknown Spiriva Respimat [T* Other: See Comments Urinary issues Sulfa (Sulfonamide * Unknown Current Medications Current Outpatient Medications on File Prior to Visit Medication Sig lisinopril-hydroCHLOROthiazide (PRINZIDE,ZESTORETIC) 10-12.5 mg per tablet Take 1 tablet by mouth once daily. albuterol HFA (PROVENTIL HFA, VENTOLIN HFA) 90 mcg/actuation inhaler Inhale 2 Puffs as instructed every 4 hours as needed. For Wheezing/Shortness of Breath novibswfrtp-dnclbeddu-kydyagqo (TRELEGY ELLIPTA) 100-62.5-25 mcg inhalation powder Inhale 1 Puff as instructed once daily. ipratropium-albuterol (DUONEB) 0.5 mg-3 mg(2.5 mg base)/3 mL nebu Inhale 3 mL as instructed every 6 hours as needed for wheezing/shortness of breath. montelukast (SINGULAIR) 10 mg tablet Take 1 tablet by mouth daily at bedtime. cyanocobalamin (VITAMIN B-12) 1,000 mcg tab Take 1 tablet by mouth once daily. hydrOXYzine pamoate (VISTARIL) 25 mg capsule Take 1 capsule by mouth three times daily as needed. lansoprazole (PREVACID) 30 mg capsule Take 1 capsule by mouth daily before breakfast. 1/2 hr before meal. guaiFENesin (MUCINEX) 600 mg 12 hr tablet Take 2 tablets by mouth twice daily. meclizine (ANTIVERT) 25 mg tab Take 1/2 to 1 tab by mouth every 8 hrs for dizziness. acetaminophen (TYLENOL) 325 mg tablet Take 500 mg by mouth every 6 hours as needed. Take (2) 500 mg tablet every 6 hours as needed. COMPOUNDED PRESCRIPTION Perform nocturnal oximetry on RA. DME: [employer]. (Patient not taking: Reported on 12/13/2021) Current Facility-Administered Medications on File Prior to Visit Medication perflutren lipid microspheres 1.3 mL in NaCl (PF) 0.9% 10 mL injection (DEFINITY) sodium chloride 0.9 % (flush) 10 mL (BD POSIFLUSH) Social History Social History Tobacco Use Smoking status: Every Day Packs/day: 1.50 Years: 30.00 Pack years: 45.00 Types: Cigarettes Start date: 1979 Smokeless tobacco: Never Tobacco comments: Current 4 cigarettes a day Vaping Use Vaping Use: Never used Substance Use Topics Alcohol use: No Drug use: No Review of Symptoms REVIEW OF SYSTEMS See HPI EXAM: BP 90/63 (BP Site: Right Arm, BP Position: Sitting, BP Cuff Size: Regular Adult) Pulse 84 Resp 16 Wt 45.8 kg (101 lb) LMP 08/31/2007 BMI 17.07 kg/m Last 8 Encounter BP Readings: Date: BP: 05/23/2022 90/63 04/12/2022 110/76 03/20/2022 104/60 03/16/2022 108/64 02/06/2022 102/62 01/06/2022 90/80 12/13/2021 120/100 11/29/2021 112/80 Last 5 Encounter Wt Readings: Date: Wt: 05/23/2022 45.8 kg (101 lb) 04/12/2022 46.7 kg (103 lb) 03/20/2022 45.8 kg (101 lb) 03/16/2022 47.2 kg (104 lb) 02/06/2022 44.9 kg (99 lb) General Appearance: Well appearing, alert, in no acute distress, well-hydrated, well nourished., Thin, and looks older then stated age. Abdomen: Abdomen soft. There is a generalized mild abdominal discomfort throughout and not worse in the RUQ. No guarding, rebound pain or peritoneal signes. Bowel sounds normal. No masses, organomegaly. Health Maintenance List COLORECTAL CANCER SCREENING Never done SHINGRIX VACCINE(1 of 2) Never done MAMMOGRAM due on 12/12/2017 PAP TESTING due on 10/04/2020 HPV TESTING due on 10/04/2020 PNEUMOCOCCAL(2 - PCV) due on 02/03/2023 LUNG CANCER SCREENING due on 02/16/2023 ANNUAL PCP TEAM CHRONIC DISEASE VISIT due on 03/20/2023 BP CONTROLLED (<130/80) due on 04/12/2023 DTAP,TDAP,TD(2 - Td or Tdap) due on 08/06/2024 DIABETES SCREEN due on 03/16/2025 LIPID SCREEN due on 03/16/2027 ALPHA-1 ANTITRYPSIN DEFICIENCY SCREENING Completed SPIROMETRY Completed INFLUENZA Completed HEPATITIS C SCREENING Completed HIV SCREENING Completed COVID-19 VACCINE Completed Data reviewed Component Latest Ref Rng & Units 02/06/2022 03/16/2022 WBC 3.70 - 11.00 k/uL 5.97 RBC 3.90 - 5.20 m/uL 4.55 Hemoglobin 11.5 - 15.5 g/dL 14.3 Hematocrit 36.0 - 46.0 % 45.5 MCV 80.0 - 100.0 fL 100.0 MCH 26.0 - 34.0 pg 31.4 MCHC 30.5 - 36.0 g/dL 31.4 RDW-CV 11.5 - 15.0 % 15.4 (H) Platelet Count 150 - 400 k/uL 228 MPV 9.0 - 12.7 fL 9.2 Neut% % 53.3 Abs Neut (ANC) 1.45 - 7.50 k/uL 3.18 Lymph% % 35.0 Abs Lymph 1.00 - 4.00 k/uL 2.09 Daniels% % 8.7 Abs Daniels <0.87 k/uL 0.52 Eosin% % 1.3 Abs Eosin <0.46 k/uL 0.08 Baso% % 1.5 Abs Baso <0.11 k/uL 0.09 Immature Gran % % 0.2 IMMATURE GRANS (ABS) <0.10 k/uL <0.03 NRBC /100 WBC 0.0 Absolute nRBC <0.01 k/uL <0.01 DTYPE Auto Protein, Total 6.3 - 8.0 g/dL 7.4 Albumin 3.9 - 4.9 g/dL 4.9 Calcium 8.5 - 10.2 mg/dL 9.8 Bilirubin, Total 0.2 - 1.3 mg/dL 0.5 Alkaline Phosphatase 34 - 123 U/L 33 (L) AST 13 - 35 U/L 22 ALT 7 - 38 U/L 8 Glucose 74 - 99 mg/dL 90 BUN 7 - 21 mg/dL 17 Creatinine 0.58 - 0.96 mg/dL 0.80 Sodium 136 - 144 mmol/L 139 Potassium 3.7 - 5.1 mmol/L 4.5 Chloride 97 - 105 mmol/L 98 CO2 22 - 30 mmol/L 29 Anion Gap 9 - 18 mmol/L 12 eGFR >=60 mL/min/1.73m 84 Total Cholesterol, Nonfasting <200 mg/dL 213 (H) Triglycerides, Nonfasting <150 mg/dL 84 HDL Cholesterol, Nonfasting >39 mg/dL 93 LDL Cholesterol, Nonfasting <100 mg/dL 103 (H) Non HDL Cholesterol, Nonfasting <130 mg/dL 120 VLDL Cholesterol, Nonfasting <30 mg/dL 17 Total Chol/HDL Ratio, Nonfasting <5.10 mg/dL 2.29 LDL/HDL Ratio, Nonfasting <2.54 mg/dL 1.11 Hemoglobin A1C 4.3 - 5.6 % 5.5 Estimated Average Glucose mg/dL 111 TSH 0.270 - 4.200 mIU/L 0.792 Vitamin B12 232 - 1,245 pg/mL 174 (L) Magnesium 1.7 - 2.3 mg/dL 2.0 A/P ASSESSMENT/PLAN: 1. RUQ pain - ICD9: 789.01, ICD10: R10.11 (primary diagnosis) - will continue the prevacid 30 mg for now and await her eval and w/u per Gastro. 2. Essential hypertension - ICD9: 401.9, ICD10: I10 - good control - however running too low and symptomatic - Continue current medication(s): lisinopril 10 mg a day - Discontinue HCTZ - Recommended regular aerobic exercise. - Recommend home blood pressure monitoring, to bring results in on next visit - Goal of BP <130/80 - LISINOPRIL 10 MG TABLET 3. Vitamin B12 deficiency - ICD9: 266.2, ICD10: E53.8 - cont replacement . Check - VITAMIN B12 BLOOD Requested Prescriptions Signed Prescriptions Disp Refills lisinopril (ZESTRIL, PRINIVIL) 10 mg tablet 30 tablet 5 Sig: Take 1 tablet by mouth once daily. F/u 2 months HTN med check F/u 6 months complete PE Jose Carlos Jones MD documented in this encounter [facility] 05-10-2022 Miscellaneous Notes Patient notified and voiced understanding. Desiree Arreaga MA The following approved medication requests have been transmitted electronically. Requested Prescriptions Signed Prescriptions Disp Refills lisinopril-hydroCHLOROthiazide (PRINZIDE,ZESTORETIC) 10-12.5 mg per tablet 30 tablet 5 Sig: Take 1 tablet by mouth once daily. Authorizing Provider: RASHIDA ANDRADE PA-C Patient wants to now if refills can be placed on this rx. She would like a call at [phone] when it has been called into pharmacy. She is having someone else pick it up, so she wants to let them know when it has been sent. Patient has been identified by name and date of : Yes Requested Prescriptions Pending Prescriptions Disp Refills lisinopril-hydroCHLOROthiazide (PRINZIDE,ZESTORETIC) 10-12.5 mg per tablet 30 tablet Sig: Take 1 tablet by mouth once daily. RX INSTRUCTIONS: Patient requesting a call when RX is approved and sent to the pharmacy. Please call patient at: [phone] Lottie Robledo Pss documented in this encounter [facility] 05-09-2022 Miscellaneous Notes Patient phones requesting refills as follows: Requested Prescriptions Pending Prescriptions Disp Refills albuterol HFA (PROVENTIL HFA, VENTOLIN HFA) 90 mcg/actuation inhaler 1 Each 1 Sig: Inhale 2 Puffs as instructed every 4 hours as needed. For Wheezing/Shortness of Breath ytjyucuzqll-cdxmzhfac-ebdbbaeq (TRELEGY ELLIPTA) 100-62.5-25 mcg inhalation powder 1 Each 5 Sig: Inhale 1 Puff as instructed once daily. ipratropium-albuterol (DUONEB) 0.5 mg-3 mg(2.5 mg base)/3 mL nebu 120 Each 0 Sig: Inhale 3 mL as instructed every 6 hours as needed for wheezing/shortness of breath. Please review and advise. Chelsea Borges RN documented in this encounter [facility] 04-18-2022 Miscellaneous Notes Patient has been identified by name and date of : Yes Requested Prescriptions Pending Prescriptions Disp Refills lisinopril-hydroCHLOROthiazide (PRINZIDE,ZESTORETIC) 10-12.5 mg per tablet 30 tablet 0 Sig: Take 1 tablet by mouth once daily. RX INSTRUCTIONS: Patient aware RX will be sent to pharmacy. No need to notify patient. Desiree Arreaga MA [place]: 03/2022 Nov: 05/2022 Last refill: 02/2022 Patient has been identified by name and date of : Yes Last office visit in this department: 03/20/2022 RX INSTRUCTIONS: Patient aware RX will be sent to pharmacy. No need to notify patient. patient is out of medication Patient phones requesting refills as follows: Requested Prescriptions Pending Prescriptions Disp Refills lisinopril-hydroCHLOROthiazide (PRINZIDE,ZESTORETIC) 10-12.5 mg per tablet 30 tablet 0 Sig: Take 1 tablet by mouth once daily. Please review and advise. Uyen Emery documented in this encounter [facility] 04-12-2022 Note HNO ID: [id number] Author: Yecenia Gomez PA-C Service: ? Author Type: Physician Animal Humane Agent Supervisor Type: Progress Notes Filed: 04/12/2022 2:23 PM Note Text: Patient: Bonny Ennis PCP: Jose Carlos Jones MD CC: COPD HPI: Bonny Ennis 61 year old female current daily smoker, 45 pack years with PMH significant for h/o alcohol abuse, severe COPD (FEV1 0.93 L 34%), GERD, HTN, and VAIBHAV non-complaint with PAP therapy. Since the last Pulmonary Clinic visit 02/06/2022, the patient has not required ED care for exacerbation. There has been no hospital admission for exacerbation. Claims to be consistently compliant with prescribed maintenance Rx Trelegy daily. Taking Mucinex 1 tablet twice daily. Duonebs 3 times daily which she states is very beneficial. Occasionally uses rescue bronchodilator, but not on a daily basis. Variable cough. Not daily and does not wake from sleep. Clear sputum. No hemoptysis. No wheezing. No dyspnea at rest. Exertional dyspnea if she hurries. No lower extremity edema. Concerned with allergies, however, she denies PND or rhinorrhea. States in the 90s she receved allergy shots from [facility]. Currently smoking 4-6 cigarettes daily. History of VAIBHAV. Has not been wearing PAP at night because she is concerned with the recall. Currently not wearing supplemental oxygen. DME: [employer]. PAST MEDICAL HISTORY Diagnosis Date Alcohol abuse 02/26/2014 Anal fissure and fistula Anorexia nervosa Anxiety 02/26/2014 Bilateral shoulder pain 10/09/2013 BPV (benign positional vertigo) 08/27/2016 Chronic bilateral low back pain with sciatica 08/23/2015 COPD, severe (HCC) 10/03/2016 Depression 02/26/2014 DJD (degenerative joint disease), lumbar 07/22/2015 Dyslipidemia 10/14/2018 Essential hypertension 08/27/2016 GERD (gastroesophageal reflux disease) 02/26/2014 Irritable bowel syndrome Irritable bowel Liver cyst 03/16/2022 Migraine with aura and without status migrainosus, not intractable 08/27/[address] Carroll Mitral valve disorders(424.0) Multiple lung nodules on CT 09/28/2015 Obsessive-compulsive disorders VAIBHAV (obstructive sleep apnea) 08/27/2016 On CPAP PAH (pulmonary artery hypertension) (HCC) 02/06/2022 Post concussion syndrome 08/06/2014 Sees Neurology Smoker 02/26/2014 1-1 1/2 PPD since 19 yo. Trigeminal neuralgia 10/09/2013 Unspecified hemorrhoids without mention of complication Hemorrhoids Vitamin B12 deficiency 03/22/2022 Allergies: Latex Rash Comment: Meloxicam GI Upset Nabumetone Shortness of Breath Novacaine [Other] Unknown Spiriva Respimat [T* Other: See Comments Comment:Urinary issues Sulfa (Sulfonamide * Unknown ipratropium-albuterol (DUONEB) 0.5 mg-3 mg(2.5 mg base)/3 mL nebuInhale 3 mL as instructed every 6 hours as needed for wheezing/shortness of breath.Disp: 120 EachRfl: 0 cyanocobalamin (VITAMIN B-12) 1,000 mcg tabTake 1 tablet by mouth once daily.Disp: Rfl: hydrOXYzine pamoate (VISTARIL) 25 mg capsuleTake 1 capsule by mouth three times daily as needed.Disp: 90 capsuleRfl: 0 lansoprazole (PREVACID) 30 mg capsuleTake 1 capsule by mouth daily before breakfast. 1/2 hr before meal.Disp: 90 capsuleRfl: 1 lisinopril-hydroCHLOROthiazide (PRINZIDE,ZESTORETIC) 10-12.5 mg per tabletTake 1 tablet by mouth once daily.Disp: 30 tabletRfl: 0 tbmwiaxlbqw-kdwpbaaxv-xsnttmts (TRELEGY ELLIPTA) 100-62.5-25 mcg inhalation powderInhale 1 Puff as instructed once daily.Disp: 1 EachRfl: 5 albuterol HFA (PROVENTIL HFA, VENTOLIN HFA) 90 mcg/actuation inhalerInhale 2 Puffs as instructed every 4 hours as needed. For Wheezing/Shortness of BreathDisp: 1 EachRfl: 1 guaiFENesin (MUCINEX) 600 mg 12 hr tabletTake 2 tablets by mouth twice daily.Disp: 120 tabletRfl: 2 meclizine (ANTIVERT) 25 mg tabTake 1/2 to 1 tab by mouth every 8 hrs for dizziness.Disp: 30 tabletRfl: 2 acetaminophen (TYLENOL) 325 mg tabletTake 650 mg by mouth every 6 hours as needed.Disp: Rfl: FLUoxetine (PROZAC) 20 mg capsuleTake 1 capsule by mouth once daily.Disp: 90 capsuleRfl: 0 (Patient not taking: Reported on 03/16/2022) COMPOUNDED PRESCRIPTIONPerform nocturnal oximetry on RA. DME: [employer].Disp: 1 EachRfl: 0 (Patient not taking: Reported on 12/13/2021) Social History Tobacco Use Smoking status: Every Day Packs/day: 1.50 Years: 30.00 Pack years: 45.00 Types: Cigarettes Start date: 1979 Smokeless tobacco: Never Tobacco comments: Current 4 cigarettes a day Vaping Use Vaping Use: Never used Substance Use Topics Alcohol use: No Drug use: No Family History Problem Relation Age of Onset Heart Mother Hypertension Mother COPD Mother Heart Father COPD Brother other (HTN) Brother PAST SURGICAL HISTORY Procedure Laterality Date 2D ECHO (EXEP) 11/16/2017 EF=65% mild pulm HTN no valve issues. CHOLECYSTECTOMY 2004 PAST SURGICAL HISTORY OF ANAL FISTULA REPAIR PAST SURGICAL HISTORY OF 2009 (more content not included)... [facility] 04-12-2022 History of Present illness Narrative Patient: Bonny Ennis PCP: Jose Carlos Jones MD CC: COPD HPI: Bonny Ennis 61 year old female current daily smoker, 45 pack years with PMH significant for h/o alcohol abuse, severe COPD (FEV1 0.93 L 34%), GERD, HTN, and VAIBHAV non-complaint with PAP therapy. Since the last Pulmonary Clinic visit 02/06/2022, the patient has not required ED care for exacerbation. There has been no hospital admission for exacerbation. Claims to be consistently compliant with prescribed maintenance Rx Trelegy daily. Taking Mucinex 1 tablet twice daily. Duonebs 3 times daily which she states is very beneficial. Occasionally uses rescue bronchodilator, but not on a daily basis. Variable cough. Not daily and does not wake from sleep. Clear sputum. No hemoptysis. No wheezing. No dyspnea at rest. Exertional dyspnea if she hurries. No lower extremity edema. Concerned with allergies, however, she denies PND or rhinorrhea. States in the 90s she receved allergy shots from [facility]. Currently smoking 4-6 cigarettes daily. History of VAIBHAV. Has not been wearing PAP at night because she is concerned with the recall. Currently not wearing supplemental oxygen. DME: [employer]. PAST MEDICAL HISTORY Diagnosis Date Alcohol abuse 02/26/2014 Anal fissure and fistula Anorexia nervosa Anxiety 02/26/2014 Bilateral shoulder pain 10/09/2013 BPV (benign positional vertigo) 08/27/2016 Chronic bilateral low back pain with sciatica 08/23/2015 COPD, severe (HCC) 10/03/2016 Depression 02/26/2014 DJD (degenerative joint disease), lumbar 07/22/2015 Dyslipidemia 10/14/2018 Essential hypertension 08/27/2016 GERD (gastroesophageal reflux disease) 02/26/2014 Irritable bowel syndrome Irritable bowel Liver cyst 03/16/2022 Migraine with aura and without status migrainosus, not intractable 08/27/[address] Carroll Mitral valve disorders(424.0) Multiple lung nodules on CT 09/28/2015 Obsessive-compulsive disorders VAIBHAV (obstructive sleep apnea) 08/27/2016 On CPAP PAH (pulmonary artery hypertension) (HCC) 02/06/2022 Post concussion syndrome 08/06/2014 Sees Neurology Smoker 02/26/2014 1-1 1/2 PPD since 19 yo. Trigeminal neuralgia 10/09/2013 Unspecified hemorrhoids without mention of complication Hemorrhoids Vitamin B12 deficiency 03/22/2022 Allergies: Latex Rash Comment: Meloxicam GI Upset Nabumetone Shortness of Breath Novacaine [Other] Unknown Spiriva Respimat [T* Other: See Comments Comment:Urinary issues Sulfa (Sulfonamide * Unknown ipratropium-albuterol (DUONEB) 0.5 mg-3 mg(2.5 mg base)/3 mL nebu^Inhale 3 mL as instructed every 6 hours as needed for wheezing/shortness of breath.^Disp: 120 Each^Rfl: 0 cyanocobalamin (VITAMIN B-12) 1,000 mcg tab^Take 1 tablet by mouth once daily.^Disp: ^Rfl: hydrOXYzine pamoate (VISTARIL) 25 mg capsule^Take 1 capsule by mouth three times daily as needed.^Disp: 90 capsule^Rfl: 0 lansoprazole (PREVACID) 30 mg capsule^Take 1 capsule by mouth daily before breakfast. 1/2 hr before meal.^Disp: 90 capsule^Rfl: 1 lisinopril-hydroCHLOROthiazide (PRINZIDE,ZESTORETIC) 10-12.5 mg per tablet^Take 1 tablet by mouth once daily.^Disp: 30 tablet^Rfl: 0 qrkympjywgw-cfoxuofyj-hewgeveh (TRELEGY ELLIPTA) 100-62.5-25 mcg inhalation powder^Inhale 1 Puff as instructed once daily.^Disp: 1 Each^Rfl: 5 albuterol HFA (PROVENTIL HFA, VENTOLIN HFA) 90 mcg/actuation inhaler^Inhale 2 Puffs as instructed every 4 hours as needed. For Wheezing/Shortness of Breath^Disp: 1 Each^Rfl: 1 guaiFENesin (MUCINEX) 600 mg 12 hr tablet^Take 2 tablets by mouth twice daily.^Disp: 120 tablet^Rfl: 2 meclizine (ANTIVERT) 25 mg tab^Take 1/2 to 1 tab by mouth every 8 hrs for dizziness.^Disp: 30 tablet^Rfl: 2 acetaminophen (TYLENOL) 325 mg tablet^Take 650 mg by mouth every 6 hours as needed.^Disp: ^Rfl: FLUoxetine (PROZAC) 20 mg capsule^Take 1 capsule by mouth once daily.^Disp: 90 capsule^Rfl: 0 (Patient not taking: Reported on 03/16/2022) COMPOUNDED PRESCRIPTION^Perform nocturnal oximetry on RA. DME: [employer].^Disp: 1 Each^Rfl: 0 (Patient not taking: Reported on 12/13/2021) Social History Tobacco Use Smoking status: Every Day Packs/day: 1.50 Years: 30.00 Pack years: 45.00 Types: Cigarettes Start date: 1979 Smokeless tobacco: Never Tobacco comments: Current 4 cigarettes a day Vaping Use Vaping Use: Never used Substance Use Topics Alcohol use: No Drug use: No Family History Problem Relation Age of Onset Heart Mother Hypertension Mother COPD Mother Heart Father COPD Brother other (HTN) Brother PAST SURGICAL HISTORY Procedure Laterality Date 2D ECHO (EXEP) 11/16/2017 EF=65% mild pulm HTN no valve issues. CHOLECYSTECTOMY 2004 PAST SURGICAL HISTORY OF ANAL FISTULA REPAIR PAST SURGICAL HISTORY OF 2010 left clavicle fracture ORIF PAST SURGICAL HISTORY OF dental surgery TONSILLECTOMY PRIMARY/SECONDARY <AGE 12 Tonsillectomy I reviewed the past medical history, family history, social history and surgical history with changes noted above and updated in EMR. IMMUNIZATIONS Prevnar - xx Pneumovax 23 - 02/03/2022, 03/25/2017 Influenza - 02/03/2022 COVID-19 - 02/10/2022, 11/10/2021, 02/15/2021, 08/05/2020, 07/04/2020 ROS: General: Generally feels well. Appetite good. Eyes, Ears, nose, throat: Deviated septum. No post nasal drip, rhinorrhea, purulent nasal discharge, epistaxis. No hoarseness. Vision stable. Cardiac: No angina, edema, orthopnea. Resp: See HPI. GI: No heartburn, dysphagia, diarrhea. Musculoskeletal: No pain. Neuro: No headache, focal weakness, tremor. Skin: No rash. Otherwise negative. PHYSICAL EXAMINATION: BP 110/76 (BP Site: Right Arm, BP Position: Sitting, BP Cuff Size: Small Adult) Pulse 78 Temp 36.2 C (97.1 F) (Temporal) Resp 14 Ht 163.8 cm (5' 4.5 ) Wt 46.7 kg (103 lb) LMP 08/31/2007 SpO2 99% BMI 17.41 kg/m Gen: No acute distress. Cooperative with examination. HEENT: Normocephalic. Sclera, conjunctiva normal. Oral hygeine and dentition good. No thrush. Resp: No stridor, accessory respiratory muscle use, supra-sternal or intercostal retractions. No wheezes, crackles. CV: Regular rythm. Heart tones normal. Radial pulses normal. Abd: Non distended. MSK: No kyphoscoliosis. Ext: Warm and well perfused. No clubbing, cyanosis, edema. Skin: No rash, ecchymoses. Neuro: Mental status normal. Affect normal. No tremor. DATA: PFT, 02/06/2022 IMPRESSION: Spirometry indicates severe obstruction. There was not a significant bronchodilator response. Electronically Signed On 02-06-2022 16:50:15 EDT by Gillian Dickerson M.D. CT chest, 02/16/2022 IMPRESSION: Stable bilateral lung nodules. No new or enlarging nodules identified. Severe emphysema. Other findings as described above. Home Health Aide Caregiver: ZOË Transcribe Date/Time: Feb 19 2022 9:27A Dictated by : SHASHI GOMEZ MD This examination was interpreted and the report reviewed and electronically signed by: SHASHI GOMEZ MD on Feb 19 2022 10:04AM EST * * *Final Report* * * DATE OF EXAM: Feb 16 2022 2:11PM [facility] 0541 - CT CHEST WO IVCON / PROCEDURE REASON: Lung nodules * * * * Physician Interpretation * * * * EXAMINATION: CHEST CT WITHOUT CONTRAST CLINICAL HISTORY: Lung nodules. Technique: Spiral CT acquisition of the chest from the thoracic inlet to the upper abdomen without contrast. MQ: [id number] CT Radiation dose: Integrated Dose-length product (DLP) for this visit = 118 mGy*cm CT Dose Reduction Employed: Automated exposure control(AEC) and iterative recon Comparison: CT chest on 06/17/2018 RESULT: Limitations: None. Lines, tubes, and devices: None. Lung parenchyma and airways: The central airways are patent. Diffuse bronchial wall thickening is demonstrated in the bilateral lungs. The lungs are remarkable for severe centrilobular and paraseptal emphysema. A few stable lung nodules are visualized. For example, there are nodules in the left lung measuring up to 7 mm, series 6 images 39, 67, 107, 115, 117 and 170. There are nodules in the right lung measuring up to 3.5 mm, series 6 images 67 and a 92. Some of these nodules may represent intrapulmonary lymph nodes. No new nodules identified. No masses. Stable biapical scarring and subpleural opacities, likely post inflammatory. Pleural space: No pleural effusions or pneumothorax. Lower neck, lymph nodes, and mediastinum: Stable thyroid gland. No supraclavicular, axillary or mediastinal lymphadenopathy. Heart, pericardium, and thoracic vessels: Stable cardiac chambers, thoracic aorta and central pulmonary arteries. No pericardial effusion/thickening. Punctate calcifications seen in the left coronary circulation. Bones and soft tissues: Stable chest wall soft tissue. Interval T12 vertebral body compression deformity/age indeterminate fracture. L1 and L2 vertebral body mild compression deformities are also visualized. The bones are somewhat osteopenic. The spine shows degenerative changes. Upper abdomen: Images study through the upper abdomen demonstrates no interval changes. There are multiple low-attenuation lesions or cysts in the liver measuring up to 2 cm, unchanged. Echocardiogram, 02/16/2022 CONCLUSIONS: - Technically difficult exam due to body habitus and COPD/lung interference. - Exam indication: Shortness of Breath - The left ventricle is normal in size. Left ventricular systolic function is normal. EF = 55 5% (visual est.) Grade I left ventricular diastolic dysfunction. - The right ventricle is normal in size. Right ventricular systolic function is normal. - There are no significant valvular abnormalities. - The patient has not had a prior CC echocardiographic exam for comparison. SSMENT/PLAN: 1. Stage 3 severe COPD by GOLD classification (HCC) - ICD9: 496, ICD10: J44.9 (primary diagnosis) Symptomatically stable. Continue Trelegy ellipta 1 inhalation daily. Rinse mouth after each use to help prevent oral thrush. Continue Duonebs. Smoking cessation is critical. 2. Lung nodules - ICD9: 793.19, ICD10: R91.8 Likely granulomatous disease. Most recent CT chest February 2022 stable. 3. Cigarette smoker - ICD9: 305.1, ICD10: F17.210 Cessation encouraged. Physiologic and physical aspects of tobacco addiction as well as strategies for quitting were discussed. Counseling was given focusing on the harmful effects of this addiction especially given the patient's medical condition(s) which will be worsened because of the chemicals in tobacco. Patient is agreeable for lung cancer screening in [place]. Will refer at next office visit since had CT chest within the year. 4. Allergic rhinitis, unspecified seasonality, unspecified trigger - ICD9: 477.9, ICD10: J30.9 Patient is questioning need for allergy shots. Will check some basic allergy labs. - IGE BLD - EOSINOPHIL ABS COUNT - ALGN MELVIN GRP Yecenia Gomez PA-C documented in this encounter [facility] 04-10-2022 Miscellaneous Notes Refill prescription for duoneb Vitaliy Garcia MD, PGY-5 Pulmonary and Critical Care Medicine Fellow 12:26 AM 04/10/2022 [id number] (click here to page) documented in this encounter [facility] 03-26-2022 Miscellaneous Notes Pt called and is notified of providers results and instructions. Pt voices understanding. Pt was given Dr Youngblood phone number [phone] to call if they don't get in contact with her to schedule. Portia Bray RN Left message for pt to contact office. Please see below. All info has been faxed to Dr Rodriguez's office. Yunior Curry LPN Let patient know US showed multiple liver cysts. Most were either stable or smaller. A few slightly increased in size. Placed referral for her to see Dr. Rodriguez in [place] for gastro evel. documented in this encounter [facility] 03-23-2022 Miscellaneous Notes Patient returned call and given provider's message below and patient verbalized understanding. Erlinda Ivory RN Left message for patient to call office back Gillian Mcelroy Ma Let patient know Mg, lipid panel, CBC, blood sugar tests, electrolytes, liver functions and kidney functions were all ok. Her B12 is low and this will increase the risk of memory issues. Needs to start taking OTC B12 1000 mcg once a day. Also needs to complete her urine test still. documented in this encounter [facility] 03-21-2022 History of Present illness Narrative Radiology Service Progress Note PATIENT NAME: Bonny Ennis DATE OF SERVICE: March 21, 2022 TIME: 2:14 PM PATIENT IDENTITY VERIFICATION COMPLETED USING TWO (2) IDENTIFIERS: Name and Date of confirmed by patient verbally. FALL SCREENING: Has the patient had 2 falls in the last year or 1 fall with injury or currently using an Ambulatory Assistive Device (Walker, Cane, Wheelchair, Crutches, etc.)? No PATIENT GENDER DATA: Female. status: : No status: NO. PATIENT RELEVANT IMPLANT DATA REVIEWED: Not Applicable RADIOLOGY DEPARTMENT: Ultrasound PERIPHERAL IV DATA: Not applicable SIGNED BY: Meghan Prieto RDMS March 21, 2022 2:14 PM documented in this encounter [facility] 03-20-2022 Instructions Laverne Joel APRN.CNP - 03/20/2022 2:01 PM EST Make an appointment with Dr. Charles Follow up with Dr. Jones as scheduled. documented in this encounter [facility] 03-20-2022 History of Present illness Narrative Chief Complaint Patient presents with: painful vein HPI Bonny Ennis is a 61 year old female who presents here today for Above Complaints.. Patient presents today for complaints about a painful right leg vein. Patient states she has had vein for years however it has become painful. Patient reports that she has a burning/stinging sensation to the vein. She also reports it being painful to the touch. Patient also reports a sticking feeling at times when ambulating. Patient reports elevating leg improves pain. Patient reports increased pain with increased ambulation. Past medical history, appointments, medications, allergies reviewed. Previous Medical History PAST MEDICAL HISTORY Diagnosis Date Alcohol abuse 02/26/2014 Anal fissure and fistula Anorexia nervosa Anxiety 02/26/2014 Bilateral shoulder pain 10/09/2013 BPV (benign positional vertigo) 08/27/2016 Chronic bilateral low back pain with sciatica 08/23/2015 COPD, severe (HCC) 10/03/2016 Depression 02/26/2014 DJD (degenerative joint disease), lumbar 07/22/2015 Dyslipidemia 10/14/2018 Essential hypertension 08/27/2016 GERD (gastroesophageal reflux disease) 02/26/2014 Irritable bowel syndrome Irritable bowel Liver cyst 03/16/2022 Migraine with aura and without status migrainosus, not intractable 08/27/[address] Carroll Mitral valve disorders(424.0) Multiple lung nodules on CT 09/28/2015 Obsessive-compulsive disorders VAIBHAV (obstructive sleep apnea) 08/27/2016 On CPAP PAH (pulmonary artery hypertension) ([facility]) 02/06/2022 Post concussion syndrome 08/06/2014 Sees Neurology Smoker 02/26/2014 1-1 1/2 PPD since 19 yo. Trigeminal neuralgia 10/09/2013 Unspecified hemorrhoids without mention of complication Hemorrhoids Previous Surgical History PAST SURGICAL HISTORY Procedure Laterality Date 2D ECHO (EXEP) 11/16/2017 EF=65% mild pulm HTN no valve issues. CHOLECYSTECTOMY 2004 PAST SURGICAL HISTORY OF ANAL FISTULA REPAIR PAST SURGICAL HISTORY OF 2010 left clavicle fracture ORIF PAST SURGICAL HISTORY OF dental surgery TONSILLECTOMY PRIMARY/SECONDARY <AGE 12 Tonsillectomy Family History FAMILY HISTORY Problem Relation Age of Onset Heart Mother Hypertension Mother COPD Mother Heart Father COPD Brother other (HTN) Brother Patient Allergies ALLERGIES Allergen Reactions Latex Rash Meloxicam GI Upset Nabumetone Shortness of Breath Novacaine [Other] Unknown Spiriva Respimat [T* Other: See Comments Urinary issues Sulfa (Sulfonamide * Unknown Current Medications Current Outpatient Medications on File Prior to Visit Medication Sig hydrOXYzine pamoate (VISTARIL) 25 mg capsule Take 1 capsule by mouth three times daily as needed. lansoprazole (PREVACID) 30 mg capsule Take 1 capsule by mouth daily before breakfast. 1/2 hr before meal. lisinopril-hydroCHLOROthiazide (PRINZIDE,ZESTORETIC) 10-12.5 mg per tablet Take 1 tablet by mouth once daily. ipratropium-albuterol (DUONEB) 0.5 mg-3 mg(2.5 mg base)/3 mL nebu Inhale 3 mL as instructed every 6 hours as needed for wheezing/shortness of breath. wyrippnmpdv-kedlcrzly-awmscxzm (TRELEGY ELLIPTA) 100-62.5-25 mcg inhalation powder Inhale 1 Puff as instructed once daily. albuterol HFA (PROVENTIL HFA, VENTOLIN HFA) 90 mcg/actuation inhaler Inhale 2 Puffs as instructed every 4 hours as needed. For Wheezing/Shortness of Breath guaiFENesin (MUCINEX) 600 mg 12 hr tablet Take 2 tablets by mouth twice daily. meclizine (ANTIVERT) 25 mg tab Take 1/2 to 1 tab by mouth every 8 hrs for dizziness. FLUoxetine (PROZAC) 20 mg capsule Take 1 capsule by mouth once daily. (Patient not taking: Reported on 03/16/2022) COMPOUNDED PRESCRIPTION Perform nocturnal oximetry on RA. DME: [employer]. (Patient not taking: Reported on 12/13/2021) acetaminophen (TYLENOL) 325 mg tablet Take 650 mg by mouth every 6 hours as needed. Current Facility-Administered Medications on File Prior to Visit Medication perflutren lipid microspheres 1.3 mL in NaCl (PF) 0.9% 10 mL injection (DEFINITY) sodium chloride 0.9 % (flush) 10 mL (BD POSIFLUSH) Social History Social History Tobacco Use Smoking status: Every Day Packs/day: 1.50 Years: 30.00 Pack years: 45.00 Types: Cigarettes Start date: 1979 Smokeless tobacco: Never Tobacco comments: Current 4 cigarettes a day Substance Use Topics Alcohol use: No Drug use: No Review of Symptoms REVIEW OF SYSTEMS See HPI EXAM: BP 104/60 Pulse 90 Resp 16 Wt 45.8 kg (101 lb) LMP 08/31/2007 SpO2 100% BMI 17.07 kg/m General Appearance: Well appearing, alert, in no acute distress, well-hydrated, well nourished.. Extremities: Positive findings: Large varicose vein that begins medial mid thigh and continues to the lateral side of the right calf. No warmth, redness, edema noted to area. Tender with palpation. Peripheral Pulses: Normal. Health Maintenance List COLORECTAL CANCER SCREENING Never done SHINGRIX VACCINE(1 of 2) Never done MAMMOGRAM due on 12/12/2017 PNEUMOCOCCAL(2 - PCV) due on 03/25/2018 PAP TESTING due on 10/04/2020 HPV TESTING due on 10/04/2020 LUNG CANCER SCREENING due on 02/16/2023 ANNUAL PCP TEAM CHRONIC DISEASE VISIT due on 03/16/2023 BP CONTROLLED (<130/80) due on 03/16/2023 DTAP,TDAP,TD(2 - Td or Tdap) due on 08/06/2024 DIABETES SCREEN due on 03/16/2025 LIPID SCREEN due on 03/16/2027 ALPHA-1 ANTITRYPSIN DEFICIENCY SCREENING Completed SPIROMETRY Completed INFLUENZA Completed HEPATITIS C SCREENING Completed HIV SCREENING Completed COVID-19 VACCINE Completed ASSESSMENT/PLAN: 1. Varicose veins of leg with pain, right - ICD9: 454.8, ICD10: I83.811 - CONSULT TO VASCULAR SURGERY Laverne Joel APRN.MANAGER COST documented in this encounter [facility] 03-11-2022 Miscellaneous Notes The following approved medication requests have been transmitted electronically. Requested Prescriptions Signed Prescriptions Disp Refills lisinopril-hydroCHLOROthiazide (PRINZIDE,ZESTORETIC) 10-12.5 mg per tablet 30 tablet 0 Sig: Take 1 tablet by mouth once daily. Jose Carlos Jones MD Pt calling for a refill of Lisinopril-HCTZ 10-12.5. Pt says she has been out x one week. NOC contacted [facility] [place] pharmacist Bessie nae who will give pt a one week emergency supply to get her through until full rx can be ordered by pcp. Order pended to Dr Jones. documented in this encounter [facility] 03-02-2022 Miscellaneous Notes Patient has COPD, she needs a refill of ipratropium-albuterol (DUONEB), she will be out of the medication after the weekend. Advised she can speak with the on-call for Dr. Dickerson, Pulmonary Medicine. If she is unable to reach them tonight she can also try reaching out to her PCP tomorrow. Conferenced the patient to the Main [place] [employer] Supervisor for the on-call for Dr. Dickerson, Pulmonary Medicine. documented in this encounter [facility] 02-16-2022 History of Present illness Narrative Radiology Service Progress Note PATIENT NAME: Bonny Ennis DATE OF SERVICE: February 16, 2022 TIME: 3:33 PM PATIENT IDENTITY VERIFICATION COMPLETED USING TWO (2) IDENTIFIERS: Name and Date of confirmed by patient verbally. FALL SCREENING: Has the patient had 2 falls in the last year or 1 fall with injury or currently using an Ambulatory Assistive Device (Walker, Cane, Wheelchair, Crutches, etc.)? No PATIENT GENDER DATA: Female. status: : No status: NO. PATIENT RELEVANT IMPLANT DATA REVIEWED: Not Applicable RADIOLOGY DEPARTMENT: CT; Exam(s) Completed: Chest PERIPHERAL IV DATA: Not applicable SIGNED BY: RT Francisco J(R) February 16, 2022 3:33 PM documented in this encounter [facility] 02-16-2022 Miscellaneous Notes Please call Bonny to alert her that her CT chest is stable. documented in this encounter [facility] 02-08-2022 Miscellaneous Notes Left message on both phones with results and recommendations.Lilly Giron LPN Left message for patient to return call. Uyen Pederson ----- Message from Kely Gordon APRN.MANAGER COST sent at 02/07/2022 7:53 AM EDT ----- Please advise patient the mono test was negative. (This was ordered by Dr. Hodges on 01/06/2022) documented in this encounter [facility] 02-06-2022 History of Present illness Narrative PULM FUNCTION SMARTBLOCK: Provider: Gillian Dickerson MD Assisting Tech: ALISHA Villegas Spirometry w/BD: 1 documented in this encounter [facility] 01-10-2022 Miscellaneous Notes Spoke with patient. Given message from provider's office. Patient verbalizes understanding. Alesha Cooper RN Left message for patient to return call. Uyen Pederson Please notify that fungal culture negative at 3 days, will call if becomes positive. documented in this encounter [facility] 01-08-2022 Miscellaneous Notes Spoke with pt and information listed below given. Pt verbalizes understanding. Carolynn Almeida LPN Left message for patient to return call. Uyen Pederson ----- Message from Kely Gordon APRN.MANAGER COST sent at 01/07/2022 8:05 AM EDT ----- Please advise patient the COVID and flu test are negative. documented in this encounter [facility] 01-06-2022 History of Present illness Narrative Patient presents with: Sore Throat: Weak, chills x 3 weeks HPI: Feeling sick for 3 weeks. Positive symptoms: Sore throat, Chills, Fatigue, weak, Headache, Nausea, mid abdominal pain Negative symptoms: Cough, Nasal Congestion, Rhinorrhea, Vomiting, Diarrhea, dysuria, frequency, urgency, or hematuria. OTC: Tylenol No known prior COVID infection Had 4th dose/COVID booster in October. Admitted for COPD exacerbation in November. PAST MEDICAL HISTORY Diagnosis Date Alcohol abuse 02/26/2014 Anal fissure and fistula Anorexia nervosa Anxiety 02/26/2014 Bilateral shoulder pain 10/09/2013 BPV (benign positional vertigo) 08/27/2016 Chronic back pain 10/09/2013 Chronic bilateral low back pain with sciatica 08/23/2015 COPD, severe (HCC) 10/03/2016 Depression 02/26/2014 DJD (degenerative joint disease), lumbar 07/22/2015 Dyslipidemia 10/14/2018 Essential hypertension 08/27/2016 GERD (gastroesophageal reflux disease) 02/26/2014 Irritable bowel syndrome Irritable bowel Migraine with aura and without status migrainosus, not intractable 08/27/[address] Carroll Mitral valve disorders(424.0) Multiple lung nodules on CT 09/28/2015 Obsessive-compulsive disorders VAIBHAV (obstructive sleep apnea) 08/27/2016 On CPAP Post concussion syndrome 08/06/2014 Sees Neurology Smoker 02/26/2014 1-1 1/2 PPD since 19 yo. Trigeminal neuralgia 10/09/2013 Unspecified hemorrhoids without mention of complication Hemorrhoids PAST SURGICAL HISTORY Procedure Laterality Date 2D ECHO (EXEP) 11/16/2017 EF=65% mild pulm HTN no valve issues. CHOLECYSTECTOMY 2005 PAST SURGICAL HISTORY OF ANAL FISTULA REPAIR PAST SURGICAL HISTORY OF 2009 left clavicle fracture ORIF PAST SURGICAL HISTORY OF dental surgery TONSILLECTOMY PRIMARY/SECONDARY <AGE 12 Tonsillectomy MEDICATIONS: Current Outpatient Medications Medication Sig lisinopril-hydroCHLOROthiazide (PRINZIDE,ZESTORETIC) 10-12.5 mg per tablet Take 1 tablet by mouth once daily. albuterol HFA (PROVENTIL HFA, VENTOLIN HFA) 90 mcg/actuation inhaler Inhale 2 Puffs as instructed every 4 hours as needed. For Wheezing/Shortness of Breath hydrOXYzine pamoate (VISTARIL) 25 mg capsule Take 1 capsule by mouth three times daily as needed. meclizine (ANTIVERT) 25 mg tab Take 1/2 to 1 tab by mouth every 8 hrs for dizziness. FLUoxetine (PROZAC) 20 mg capsule Take 1 capsule by mouth once daily. guaiFENesin (MUCINEX) 600 mg 12 hr tablet Take 2 tablets by mouth twice daily. acetaminophen (TYLENOL) 325 mg tablet Take 650 mg by mouth every 6 hours as needed. COMPOUNDED PRESCRIPTION Perform nocturnal oximetry on RA. DME: [employer]. (Patient not taking: Reported on 12/13/2021) No current facility-administered medications for this visit. ALLERGIES: ALLERGIES Allergen Reactions Latex Rash Meloxicam GI Upset Nabumetone Shortness of Breath Novacaine [Other] Unknown Spiriva Respimat [T* Other: See Comments Urinary issues Sulfa (Sulfonamide * Unknown VITALS: BP 90/80 Pulse 73 Temp 36.5 C (97.7 F) Resp 18 Wt 44.5 kg (98 lb) LMP 08/31/2007 BMI 16.06 kg/m Last 8 Encounter BP Readings: Date: BP: 01/06/2022 90/80 12/13/2021 120/100 11/29/2021 112/80 11/24/2021 118/64 11/07/2019 118/82 04/07/2019 118/80 10/14/2018 94/66 03/31/2018 118/88 Last 8 Encounter Wt Readings: Date: Wt: 01/06/2022 44.5 kg (98 lb) 12/13/2021 49.2 kg (108 lb 6.4 oz) 11/29/2021 53.3 kg (117 lb 9.6 oz) 11/24/2021 54.5 kg (120 lb 3.2 oz) 11/07/2019 48.1 kg (106 lb) 04/07/2019 48.6 kg (107 lb 3.2 oz) 10/14/2018 48.5 kg (107 lb) 03/31/2018 56.2 kg (124 lb) PHYSICAL EXAM: GEN: mildly ill appearing, lean HEENT: PERRL, EOMI, conjunctiva clear Ears: canals clear. TMs without erythema, bulge, or effusion Sinuses: non-tender frontal sinus, non-tender maxillary sinuses Throat: moist mucous membranes, pharyngeal erythema, no exudate Neck: supple, no thyromegaly, palpable carotids, no lymphadenopathy HEART: regular rate and rhythm, no murmurs LUNGS: clear to auscultation, no wheezes or crackles, no increased WOB ABD: soft, non-distended, no masses, Right abdominal pain (baseline because of hepatic cysts per patient). ASSESSMENT/PLAN: 1. Sore throat - ICD9: 462, ICD10: J02.9 (primary diagnosis) - STREP A MOLECULAR (POC) - negative - COVID WITH FLUA+B, ROUTINE - MONOTEST, INFECTIOUS MONO She had steroid treatments last month. Start thrush treatment - CLOTRIMAZOLE 10 MG LENKA. - FUNGAL CULT + SMEAR 2. Chills - ICD9: 780.64, ICD10: R68.83 - COVID WITH FLUA+B, ROUTINE - MONOTEST, INFECTIOUS MONO 3. Fatigue, unspecified type - ICD9: 780.79, ICD10: R53.83 - MONOTEST, INFECTIOUS MONO - TSH BLD 4. Thrombocytopenia (HCC) - ICD9: 287.5, ICD10: D69.6 5. Weight loss - ICD9: 783.21, ICD10: R63.4 She is down #20 in 1 1/2 months. Has CMP and CBC orders due for recheck from primary care visit. Add mono and TSH. She will return this week for blood draw when it is available. Follow up with primary care if abnormal. - TSH BLD Sajan Hodges MD documented in this encounter [facility] 01-05-2022 Miscellaneous Notes Attempted to contact patient via telephone regarding upcoming NEW patient appointment with Dr. Slaughter on 01/08/22. [facility] relaying the message below: This is the [facility] calling regarding your upcoming appointment with Dr. Slaughter. To avoid a delay in your care, please bring any imaging (such as MRI, CT, XR, etc.) that have been done outside of the [facility] Systems on a disk to be viewed at your appointment. Please be advised that this appointment is a consult only and narcotics will NOT be prescribed. Dr. Slaughter is primarily an interventional pain management provider. He treats with physical therapy, injections of the spine or joints, and non-narcotic medications. Dr. Slaughter will not take over and manage any medications that are already being prescribed by another provider. If you have any questions or need to cancel or reschedule your appointment, please contact the [facility] at [phone]. documented in this encounter [facility] 01-04-2022 Miscellaneous Notes Letter mailed to pt home notifying pt she is due for an appointment and to call in and schedule. Miriam Solis Ma Left message for pt to contact office on cell number. Yunior Curry LPN Left additional for patient to contact office to schedule appointment. Desiree Arreaga MA Left message for patient to return call to office Keila Patterson Cma Patient was to make a f/u appt with me in a month after seeing Gail on 11/29/2021. Please assist with getting a routine appt with either Rashida or myself in the next 30-60 days. The following approved medication requests have been transmitted electronically. Requested Prescriptions Signed Prescriptions Disp Refills lisinopril-hydroCHLOROthiazide (PRINZIDE,ZESTORETIC) 10-12.5 mg per tablet 30 tablet 1 Sig: Take 1 tablet by mouth once daily. Authorizing Provider: JOSE CARLOS JONES albuterol HFA (PROVENTIL HFA, VENTOLIN HFA) 90 mcg/actuation inhaler 1 Each 1 Sig: Inhale 2 Puffs as instructed every 4 hours as needed. For Wheezing/Shortness of Breath Authorizing Provider: JOSE CARLOS JONES MD Patient wants to know if Dr. Jones can refill these meds until she is seen in pulmonary at the end of Jan. Also was Breo, but it is not on med list. Please advise at [phone]. Patient has been identified by name and date of : Yes Requested Prescriptions Pending Prescriptions Disp Refills lisinopril-hydroCHLOROthiazide (PRINZIDE,ZESTORETIC) 10-12.5 mg per tablet Sig: Take 1 tablet by mouth once daily. albuterol HFA (PROVENTIL HFA, VENTOLIN HFA) 90 mcg/actuation inhaler Sig: Inhale 2 Puffs as instructed every 4 hours as needed. For Wheezing/Shortness of Breath RX INSTRUCTIONS: Patient requesting a call when RX is approved and sent to the pharmacy. Please call patient at: [phone] Lottie Emery documented in this encounter [facility] 12-13-2021 Instructions Shital Briseno APRN.MANAGER COST - 12/13/2021 11:27 AM EDT Flexeril, tylenol as ordered Referral to spine, appointment to be scheduled Report immediately to ER for foot drop, bowel or bladder loss, numbness or tingling of legs/feet or any new or worsening concerns if unable to get into PMD documented in this encounter [facility] 12-13-2021 History of Present illness Narrative Images from the original note were not included. Subjective The history is provided by the patient. No pants busheler was used. KIRILL Ennis is a 61 year old female who presents today for CC of mid to lower back pain on left side. She has chronic issues with this, but seems a little worse. She used to see Dr. Slaughter for pain management, but did not want to travel to [place]. Recently hospitalized for COPD exacerbation. She currently is using tylenol without relief. She denies any loss of bowel or bladder function. No foot drop BP 120/100 Pulse 88 Temp 36.3 C (97.4 F) Resp 18 Wt 49.2 kg (108 lb 6.4 oz) LMP 08/31/2007 SpO2 95% BMI 17.76 kg/m Social History Tobacco Use Smoking status: Every Day Packs/day: 1.50 Years: 30.00 Pack years: 45.00 Types: Cigarettes Start date: 1979 Smokeless tobacco: Never Tobacco comments: 0.5-0.75 PPD on 08/29/2017, TO. Substance Use Topics Alcohol use: No Drug use: No PAST MEDICAL HISTORY Diagnosis Date Alcohol abuse 02/26/2014 Anal fissure and fistula Anorexia nervosa Anxiety 02/26/2014 Bilateral shoulder pain 10/09/2013 BPV (benign positional vertigo) 08/27/2016 Chronic back pain 10/09/2013 Chronic bilateral low back pain with sciatica 08/23/2015 COPD, severe (HCC) 10/03/[address] Jordan Depression 02/26/2014 DJD (degenerative joint disease), lumbar 07/22/2015 Dyslipidemia 10/14/2018 Essential hypertension 08/27/2016 GERD (gastroesophageal reflux disease) 02/26/2014 Irritable bowel syndrome Irritable bowel Migraine with aura and without status migrainosus, not intractable 08/27/[address] Carroll Mitral valve disorders(424.0) Multiple lung nodules on CT 09/28/2015 Obsessive-compulsive disorders VAIBHAV (obstructive sleep apnea) 08/27/2016 On CPAP Post concussion syndrome 08/06/2014 Sees Neurology Smoker 02/26/2014 1-1 1/2 PPD since 19 yo. Trigeminal neuralgia 10/09/2013 Unspecified hemorrhoids without mention of complication Hemorrhoids I have confirmed and edited as necessary, the [facility] Review of Systems Constitutional: Negative for chills and fever. Genitourinary: Negative for dysuria, frequency, hematuria and urgency. Musculoskeletal: Positive for back pain. Negative for joint pain and myalgias. Skin: Negative for itching and rash. All other systems reviewed and are negative. Objective Physical Exam Vitals and nursing note reviewed. Cardiovascular: Rate and Rhythm: Normal rate and regular rhythm. Pulses: Popliteal pulses are 2+ on the right side and 2+ on the left side. Dorsalis pedis pulses are 2+ on the right side and 2+ on the left side. Posterior tibial pulses are 2+ on the right side and 2+ on the left side. Heart sounds: Normal heart sounds. Pulmonary: Effort: Pulmonary effort is normal. Breath sounds: Wheezing present. Musculoskeletal: Cervical back: Normal. Thoracic back: Tenderness present. No bony tenderness. Decreased range of motion. No scoliosis. Lumbar back: Tenderness present. No bony tenderness. Normal range of motion. Back: Skin: General: Skin is warm and dry. Neurological: Mental Status: She is alert and oriented to person, place, and time. Sensory: Sensation is intact. Motor: Motor function is intact. Coordination: Coordination is intact. Deep Tendon Reflexes: Reflexes are normal and symmetric. Psychiatric: Mood and Affect: Affect normal. ASSESSMENT/PLAN: 1. Chronic bilateral low back pain with sciatica, sciatica laterality unspecified - ICD9: 724.2, 724.3, 338.29, ICD10: M54.40, G89.29 Chronic low back pain - Ice for localized tenderness - Warm moist heat for 20 min three times a day - Muscle relaxant- see orders - Patient given instructions referral to spine - CONSULT TO [facility] Diagnosis and treatment plan were discussed and questions were answered to the patient's satisfaction. Pt acknowledged understanding of concepts and follow up plan. Specific signs and symptoms that would indicate the need for higher level of care were discussed in detail warranting prompt ER evaluation. Shital Briseno APRN.JUS documented in this encounter [facility] 11-29-2021 History of Present illness Narrative 11/29/2021 Patient presents with: Hospital F/U: [facility] f/u; COPD SUBJECTIVE: This is a 61 year old that is here today for hospital follow-up. Here for hospital follow-up for COPD exacerbation. Patient has not been seen by PCP in over two years HOSPITAL/ER FOLLOW UP: Reason for visit: hypoxia, COPD exacerbation Which facility: [facility] Date of visit: 11/24/2021-11/26/2021 Diagnosis: COPD exacerbation, HTN, uncontrolled, BLE, Testing done: EKG Treatment given: oxygen, aerosols, IV methylprednisolone Since discharge home has been feeling improved somewhat. Still with some swelling to feet and legs. Is taking prinzide, mucinex, steroid taper and albuterol nebulizer as prescribed by [facility]. Not wearing oxygen as prescribed. Admits to some SOB with exertion. Denies fevers, chills, wheezing, cough, dyspnea, orthopnea, chest pain or palpitations. Would like refill on her Antivert she takes as needed for dizziness due to post concussive syndrome. Also reporting she is feeling anxious. Used to be on medications but unsure of names. Is going to call and get an appointment with [facility] where she went for mental health services previously but she thinks it will take some time to get an appointment. Denies SI or insomnia. 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 Continue to smoke daily. Trying to cut down. Declines medication for smoking cessation. Available hospital records reviewed. PAST MEDICAL HISTORY Diagnosis Date Alcohol abuse 02/26/2014 Anal fissure and fistula Anorexia nervosa Anxiety 02/26/2014 Bilateral shoulder pain 10/09/2013 BPV (benign positional vertigo) 08/27/2016 Chronic back pain 10/09/2013 Chronic bilateral low back pain with sciatica 08/23/2015 COPD, severe (HCC) 10/03/[address] Jordan Depression 02/26/2014 DJD (degenerative joint disease), lumbar 07/22/2015 Dyslipidemia 10/14/2018 Essential hypertension 08/27/2016 GERD (gastroesophageal reflux disease) 02/26/2014 Irritable bowel syndrome Irritable bowel Migraine with aura and without status migrainosus, not intractable 08/27/[address] Carroll Mitral valve disorders(424.0) Multiple lung nodules on CT 09/28/2015 Obsessive-compulsive disorders VAIBHAV (obstructive sleep apnea) 08/27/2016 On CPAP Post concussion syndrome 08/06/2014 Sees Neurology Smoker 02/26/2014 1-1 1/2 PPD since 19 yo. Trigeminal neuralgia 10/09/2013 Unspecified hemorrhoids without mention of complication Hemorrhoids ALLERGIES Latex, Meloxicam, Nabumetone, Novacaine [Other], Spiriva Respimat [Tiotropium [place]], and Sulfa (Sulfonamide Antibiotics) MEDICATIONS Current Outpatient Medications Medication Sig albuterol HFA (PROVENTIL HFA, VENTOLIN HFA) 90 mcg/actuation inhaler Inhale 2 Puffs as instructed every 4 hours as needed. For Wheezing/Shortness of Breath fluticasone-vilanterol (BREO ELLIPTA) 100-25 mcg/dose inhaler Inhal 1 puff as instructed 1 time daily ipratropium-albuterol (DUONEB) 0.5 mg-3 mg(2.5 mg base)/3 mL nebu Inhale 3 mL as instructed every 6 hours as needed. propranolol (INDERAL) 10 mg tablet Take 1 tablet by mouth twice daily. guaiFENesin (MUCINEX) 600 mg 12 hr tablet Take 2 tablets by mouth twice daily. meclizine (ANTIVERT) 25 mg tab Take 1/2 to 1 tab by mouth every 8 hrs for dizziness. COMPOUNDED PRESCRIPTION Perform nocturnal oximetry on RA. DME: [employer]. fexofenadine (JAZMINE) 180 mg tablet Take 1 tablet by mouth once daily. (Patient not taking: Reported on 11/07/2019 ) acetaminophen (TYLENOL) 325 mg tablet Take 650 mg by mouth every 6 hours as needed. DOCUSATE CALCIUM (STOOL SOFTENER ORAL) Take by mouth as needed. FLUoxetine (PROZAC) 20 mg capsule Take 40 mg by mouth once daily. lansoprazole (PREVACID) 15 mg capsule Take 15 mg by mouth once daily. No current facility-administered medications for this visit. Medications and allergies reviewed by this provider. SOCIAL HISTORY Social History Tobacco Use Smoking status: Every Day Packs/day: 1.50 Years: 30.00 Pack years: 45.00 Types: Cigarettes Start date: 1979 Smokeless tobacco: Never Tobacco comments: 0.5-0.75 PPD on 08/29/2017, TO. Substance Use Topics Alcohol use: No Drug use: No REVIEW OF SYSTEMS All other reviewed and negative other than HPI. OBJECTIVE: BP 112/80 Pulse 97 Resp 18 Wt 53.3 kg (117 lb 9.6 oz) LMP 08/31/2007 SpO2 92% BMI 19.27 kg/m . Vital signs reviewed by this provider. APPEARANCE Well appearing, alert, in no acute distress, well-hydrated, well nourished. EYES PERRLA, conjunctiva and sclera normal. HEART RRR with normal S1 and S2, no murmurs, no gallops, no JVD appreciated LUNG diminished breath sounds throughout EXTREMITIES 1+ non-pitting edema BLE PSYCH: Posture and motor behavior: normal posture and motor behavior Dress, grooming, personal hygiene: normal dress and grooming Facial expression: poor eye contact Speech: normal speech Mood: flat affect Coherency and relevance of thought: normal thought processes Memory: normal memory ALPHA-1 ANTITRYPSIN DEFICIENCY SCREENING Never done COLORECTAL CANCER SCREENING Never done SHINGRIX VACCINE(1 of 2) Never done MAMMOGRAM due on 12/12/2017 PNEUMOCOCCAL(2 - PCV) due on 03/25/2018 LUNG CANCER SCREENING due on 06/18/2019 PAP TESTING due on 10/04/2020 HPV TESTING due on 10/04/2020 DIABETES SCREEN due on 06/17/2021 INFLUENZA(1) due on 12/14/2021 ANNUAL PCP TEAM CHRONIC DISEASE VISIT due on 11/29/2022 BP CONTROLLED (<130/80) due on 11/29/2022 LIPID SCREEN due on 10/22/2023 DTAP,TDAP,TD(2 - Td or Tdap) due on 08/06/2024 SPIROMETRY Completed HEPATITIS C SCREENING Completed HIV SCREENING Completed COVID-19 VACCINE Completed ASSESSMENT/PLAN: 1. Hospital discharge follow-up - ICD9: V67.59, ICD10: Z09 (primary diagnosis) - plan as below 2. Bilateral leg edema - ICD9: 782.3, ICD10: R60.0 - discussed low salt diet and elevating legs when siting - COMPRESSION STOCKINGS - follow-up in one month with PCP 3. COPD, severe (HCC) - ICD9: 496, ICD10: J44.9 - discussed importance of compliance with ordered oxygen, patient verbalizes understanding - PREDNISONE 10 MG TABLET - CONSULT TO PULMONARY MEDICINE - recommend smoking cessation - follow-up with pulmonary [facility] 4. Thrombocytopenia (HCC) - ICD9: 287.5, ICD10: D69.6 - platelets noted to be 78 on hospital blood work- recheck in one month - CBC 5. Essential hypertension - ICD9: 401.9, ICD10: I10 - good control - Continue current medication(s) - Encouraged dietary sodium restriction/DASH diet - Recommended regular aerobic exercise. - Recommend home blood pressure monitoring, to bring results in on next visit - Follow up in 1 month for BP recheck. - Goal of BP <130/80 - LISINOPRIL 10 MG-HYDROCHLOROTHIAZIDE 12.5 MG TABLET - COMP METABOLIC PANEL 6. Hepatic cyst - ICD9: 573.8, ICD10: K76.89 - CONSULT TO HEPATOLOGY 7. Encounter for screening for lung cancer - ICD9: V76.0, ICD10: Z12.2 - CONSULT LUNG CANCER SCREENING CLINIC 8. Post concussion syndrome - ICD9: 310.2, ICD10: F07.81 - MECLIZINE 25 MG TABLET 9. Anxiety and depression - ICD9: 300.00, 311, ICD10: F41.9, F32.A - Discussed concept of neurochemical imbalance [facility] depression/anxiety - Handout on depression/anxiety form UptoDate given - Option of Medication use discussed - Risks/benefits of SSRIs - Common side effects - Sleep Hygeine - advised counseling to improve management of stressors - Instructed patient to contact office or [id number] after-hours promptly should condition worsen or any new symptoms appear. - Counseling Center [facility] and after hours crisis line - [facility]woman's house phone number or - HYDROXYZINE PAMOATE 25 MG CAPSULE- discussed this medication can make you drowsy so she should not drive or operate heavy machinery while taking, patient verbalizes understanding - FLUOXETINE 20 MG CAPSULE - follow-up with PCP in one months, sooner if needed 10. Tobacco use - ICD9: 305.1, ICD10: Z72.0 - Cessation encouraged. - Physiologic and physical aspects of tobacco addiction as well as strategies for quitting were discussed. - Counseling was given focusing on the harmful effects of this addiction especially given the patient's medical condition(s) which will be worsened because of the chemicals in tobacco. - Counseling was given 3-4 minutes. - CONSULT LUNG [facility]CER SCREENING CLINIC Gail Cuellar APRN.MANAGER COST Prescription instructions reviewed with patient as applicable. Patient advised if symptoms do not improve or if symptoms worsen sooner, to contact their primary care physician. Potential red flag symptoms discussed with the patient. Reviewed appropriate action plan to take if red flag symptoms occur. Patient agreeable to treatment plan. I spent a total of 50 minutes on the date of the service which included preparing to see the patient, [id number] patient care, completing clinical documentation, obtaining and/or reviewing separately obtained history, performing a medically appropriate examination, counseling and educating the patient/family/caregiver, and ordering medications, tests, or procedures. documented in this encounter [facility] 11-28-2021 History of Present illness Narrative documented in this encounter [facility] 11-24-2021 History of Present illness Narrative Subjective HPI HPI Bonny Ennis is a 61 year old female who presents today for CC of bilat leg swelling, weight gain. This started 2 weeks ago/getting worse. Has tried nothing for relief. Symptoms are worsened nothing known. Risk factors hx of hepatic cysts. .Patient presents with: bilateral leg swelling: Bilateral leg swelling x 2 weeks PAST MEDICAL HISTORY Diagnosis Date Alcohol abuse 02/26/2014 Anal fissure and fistula Anorexia nervosa Anxiety 02/26/2014 Bilateral shoulder pain 10/09/2013 BPV (benign positional vertigo) 08/27/2016 Chronic back pain 10/09/2013 Chronic bilateral low back pain with sciatica 08/23/2015 COPD, severe (HCC) 10/03/[address] Jordan Depression 02/26/2014 DJD (degenerative joint disease), lumbar 07/22/2015 Dyslipidemia 10/14/2018 Essential hypertension 08/27/2016 GERD (gastroesophageal reflux disease) 02/26/2014 Irritable bowel syndrome Irritable bowel Migraine with aura and without status migrainosus, not intractable 08/27/[address] Carroll Mitral valve disorders(424.0) Multiple lung nodules on CT 09/28/2015 Obsessive-compulsive disorders VAIBHAV (obstructive sleep apnea) 08/27/2016 On CPAP Post concussion syndrome 08/06/2014 Sees Neurology Smoker 02/26/2014 1-1 1/2 PPD since 19 yo. Trigeminal neuralgia 10/09/2013 Unspecified hemorrhoids without mention of complication Hemorrhoids PAST SURGICAL HISTORY Procedure Laterality Date 2D ECHO (EXEP) 11/16/2017 EF=65% mild pulm HTN no valve issues. CHOLECYSTECTOMY 2004 PAST SURGICAL HISTORY OF ANAL FISTULA REPAIR PAST SURGICAL HISTORY OF 2009 left clavicle fracture ORIF PAST SURGICAL HISTORY OF dental surgery TONSILLECTOMY PRIMARY/SECONDARY <AGE 12 Tonsillectomy ALLERGIES Latex, Meloxicam, Nabumetone, Novacaine [Other], Spiriva Respimat [Tiotropium [place]], and Sulfa (Sulfonamide Antibiotics) MEDICATIONS albuterol HFA (PROVENTIL HFA, VENTOLIN HFA) 90 mcg/actuation inhaler Inhale 2 Puffs as instructed every 4 hours as needed. For Wheezing/Shortness of Breath fluticasone-vilanterol (BREO ELLIPTA) 100-25 mcg/dose inhaler Inhal 1 puff as instructed 1 time daily ipratropium-albuterol (DUONEB) 0.5 mg-3 mg(2.5 mg base)/3 mL nebu Inhale 3 mL as instructed every 6 hours as needed. propranolol (INDERAL) 10 mg tablet Take 1 tablet by mouth twice daily. guaiFENesin (MUCINEX) 600 mg 12 hr tablet Take 2 tablets by mouth twice daily. meclizine (ANTIVERT) 25 mg tab Take 1/2 to 1 tab by mouth every 8 hrs for dizziness. COMPOUNDED PRESCRIPTION Perform nocturnal oximetry on RA. DME: [employer]. acetaminophen (TYLENOL) 325 mg tablet Take 650 mg by mouth every 6 hours as needed. DOCUSATE CALCIUM (STOOL SOFTENER ORAL) Take by mouth as needed. FLUoxetine (PROZAC) 20 mg capsule Take 40 mg by mouth once daily. lansoprazole (PREVACID) 15 mg capsule Take 15 mg by mouth once daily. fexofenadine (JAZMINE) 180 mg tablet Take 1 tablet by mouth once daily. (Patient not taking: Reported on 11/07/2019 ) FAMILY HISTORY Problem Relation Age of Onset Heart Mother Hypertension Mother COPD Mother Heart Father Hypertension Brother COPD Brother Social History Tobacco Use Smoking status: Every Day Packs/day: 1.50 Years: 30.00 Pack years: 45.00 Types: Cigarettes Start date: 1979 Smokeless tobacco: Never Tobacco comments: 0.5-0.75 PPD on 08/29/2017, TO. Substance Use Topics Alcohol use: No Drug use: No ROS Objective Blood pressure 118/64, pulse 88, temperature 37 C (98.6 F), temperature source Tympanic, resp. rate 18, weight 54.5 kg (120 lb 3.2 oz), last menstrual period 08/31/2007, SpO2 90 %. Physical Exam Constitutional: General: She is not in acute distress. Appearance: She is not toxic-appearing or diaphoretic. HENT: Head: Normocephalic and atraumatic. Cardiovascular: Rate and Rhythm: Normal rate and regular rhythm. Pulses: Popliteal pulses are 1+ on the right side and 1+ on the left side. Dorsalis pedis pulses are 1+ on the right side and 1+ on the left side. Heart sounds: Normal heart sounds, S1 normal and S2 normal. Comments: 2-3+ pitting edema bilat lower extremity. Pulmonary: Effort: Pulmonary effort is normal. Breath sounds: Normal breath sounds. Neurological: Mental Status: She is alert and oriented to person, place, and time. Gait: Gait is intact. ASSESSMENT/PLAN: 1. Leg swelling - ICD9: 729.81, ICD10: M79.89 Concerns with worsening swelling without hx Discussed limitations of express care I will refer to ER for further evaluation. Aditya Davison APRN.MANAGER COST documented in this encounter [facility] documented as of this encounter (statuses as of 10/16/2021) [address] History of Past illness Narrative* Problem Noted Date Resolved Date Dizziness 08/06/2014 09/28/2015 documented as of this encounter (statuses as of 11/24/2021) [address] History of Past illness Narrative* Problem Noted Date Resolved Date Dizziness 08/06/2014 09/28/2015 documented as of this encounter (statuses as of 11/29/2021) [address] History of Past illness Narrative* Problem Noted Date Resolved Date Dizziness 08/06/2014 09/28/2015 documented as of this encounter (statuses as of 12/13/2021) [address] History of Past illness Narrative* Problem Noted Date Resolved Date Dizziness 08/06/2014 09/28/2015 documented as of this encounter (statuses as of 12/29/2021) [address] History of Past illness Narrative* Problem Noted Date Resolved Date Dizziness 08/06/2014 09/28/2015 documented as of this encounter (statuses as of 01/04/2022) [address] History of Past illness Narrative* Problem Noted Date Resolved Date Dizziness 08/06/2014 09/28/2015 documented as of this encounter (statuses as of 01/05/2022) [place] [id number] History of Past illness Narrative* Problem Noted Date Resolved Date Dizziness 08/06/2014 09/28/2015 documented as of this encounter (statuses as of 01/06/2022) [place] [address] History of Past illness Narrative* Problem Noted Date Resolved Date Dizziness 08/06/2014 09/28/2015 documented as of this encounter (statuses as of 01/08/2022) [place] [address] History of Past illness Narrative* Problem Noted Date Resolved Date Dizziness 08/06/2014 09/28/2015 documented as of this encounter (statuses as of 01/10/2022) [address] History of Past illness Narrative* Problem Noted Date Resolved Date Dizziness 08/06/2014 09/28/2015 documented as of this encounter (statuses as of 02/06/2022) [address] History of Past illness Narrative* Problem Noted Date Resolved Date Dizziness 08/06/2014 09/28/2015 documented as of this encounter (statuses as of 02/08/2022) [address] History of Past illness Narrative* Problem Noted Date Resolved Date Dizziness 08/06/2014 09/28/2015 documented as of this encounter (statuses as of 03/03/2022) [address] History of Past illness Narrative* Problem Noted Date Resolved Date Dizziness 08/06/2014 09/28/2015 documented as of this encounter (statuses as of 03/11/2022) [address] History of Past illness Narrative* Problem Noted Date Resolved Date Dizziness 08/06/2014 09/28/2015 documented as of this encounter (statuses as of 03/20/2022) [address] History of Past illness Narrative* Problem Noted Date Resolved Date Dizziness 08/06/2014 09/28/2015 documented as of this encounter (statuses as of 03/23/2022) [address] History of Past illness Narrative* Problem Noted Date Resolved Date Dizziness 08/06/2014 09/28/2015 documented as of this encounter (statuses as of 03/26/2022) [address] History of Past illness Narrative* Problem Noted Date Resolved Date Dizziness 08/06/2014 09/28/2015 documented as of this encounter (statuses as of 04/15/2022) [address] History of Past illness Narrative* Problem Noted Date Resolved Date Dizziness 08/06/2014 09/28/2015 documented as of this encounter (statuses as of 04/18/2022) [address] History of Past illness Narrative* Problem Noted Date Resolved Date Dizziness 08/06/2014 09/28/2015 documented as of this encounter (statuses as of 04/18/2022) [address] History of Past illness Narrative* Problem Noted Date Resolved Date Dizziness 08/06/2014 09/28/2015 documented as of this encounter (statuses as of 04/19/2022) [address] History of Past illness Narrative* Problem Noted Date Resolved Date Dizziness 08/06/2014 09/28/2015 documented as of this encounter (statuses as of 05/09/2022) [address] History of Past illness Narrative* Problem Noted Date Resolved Date Dizziness 08/06/2014 09/28/2015 documented as of this encounter (statuses as of 05/10/2022) [address] History of Past illness Narrative* Problem Noted Date Resolved Date Dizziness 08/06/2014 09/28/2015 documented as of this encounter (statuses as of 05/25/2022) [address] History of Past illness Narrative* Problem Noted Date Resolved Date Dizziness 08/06/2014 09/28/2015 documented as of this encounter (statuses as of 07/20/2022) [address] History of Past illness Narrative* Problem Noted Date Resolved Date Dizziness 08/06/2014 09/28/2015 documented as of this encounter (statuses as of 07/20/2022) [address] History of Past illness Narrative* Problem Noted Date Resolved Date Dizziness 08/06/2014 09/28/2015 documented as of this encounter (statuses as of 08/03/2022) [place] [address] History of Past illness Narrative* Problem Noted Date Resolved Date Dizziness 08/06/2014 09/28/2015 documented as of this encounter (statuses as of 08/14/2022) [address] History of Past illness Narrative* Problem Noted Date Resolved Date Dizziness 08/06/2014 09/28/2015 documented as of this encounter (statuses as of 10/09/2022) [address] History of Past illness Narrative* Problem Noted Date Resolved Date Dizziness 08/06/2014 09/28/2015 documented as of this encounter (statuses as of 10/09/2022) [address] History of Past illness Narrative* Problem Noted Date Diagnosed Date Resolved Date Dizziness 08/06/2014 09/28/2015 documented as of this encounter (statuses as of 11/20/2022) [address] History of Past illness Narrative* Problem Noted Date Diagnosed Date Resolved Date Dizziness 08/06/2014 09/28/2015 documented as of this encounter (statuses as of 02/01/2023) [place] [address] History of Past illness Narrative* Problem Noted Date Diagnosed Date Resolved Date Dizziness 08/06/2014 09/28/2015 documented as of this encounter (statuses as of 02/05/2023) [address] History of Past illness Narrative* Problem Noted Date Diagnosed Date Resolved Date Dizziness 08/06/2014 09/28/2015 documented as of this encounter (statuses as of 02/13/2023) [address] History of Past illness Narrative* Problem Noted Date Diagnosed Date Resolved Date Dizziness 08/06/2014 09/28/2015 documented as of this encounter (statuses as of 02/17/2023) [address] History of Past illness Narrative* Problem Noted Date Diagnosed Date Resolved Date Dizziness 08/06/2014 09/28/2015 documented as of this encounter (statuses as of 02/17/2023) [address] History of Past illness Narrative* Problem Noted Date Diagnosed Date Resolved Date Dizziness 08/06/2014 09/28/2015 documented as of this encounter (statuses as of 02/17/2023) [address] History of Past illness Narrative* Problem Noted Date Diagnosed Date Resolved Date Dizziness 08/06/2014 09/28/2015 documented as of this encounter (statuses as of 02/28/2023) [address] History of Past illness Narrative* Problem Noted Date Diagnosed Date Resolved Date Dizziness 08/06/2014 09/28/2015 documented as of this encounter (statuses as of 03/01/2023) [facility] note* Diagnosis Encounter for screening mammogram for breast cancer documented in this encounter [facility] note* Diagnosis Symptom of leg swelling- Primary [facility] Diagnosis Hospital discharge follow-up- Primary Other follow-up examination Bilateral leg edema Edema COPD, severe (HCC) Chronic airway obstruction, not elsewhere classified Thrombocytopenia (HCC) Thrombocytopenia, unspecified Essential hypertension Unspecified essential hypertension Hepatic cyst Other specified disorders of liver Encounter for screening for lung cancer Post concussion syndrome Postconcussion syndrome Anxiety and depression Dysthymic disorder Tobacco use Tobacco use disorder [facility] Diagnosis Chronic bilateral low back pain with sciatica, sciatica laterality unspecified- Primary [facility] Diagnosis Essential hypertension Unspecified essential hypertension Chronic obstructive pulmonary disease, unspecified COPD type (HCC) [facility] Diagnosis Sore throat- Primary Acute pharyngitis Chills Chills (without fever) Fatigue, unspecified type Thrombocytopenia (HCC) Thrombocytopenia, unspecified Weight loss Loss of weight documented in this encounter [facility] note* Diagnosis Asthma, unspecified asthma severity, unspecified whether complicated, unspecified whether persistent documented in this encounter [facility] note* Diagnosis Essential hypertension Unspecified essential hypertension documented in this encounter [facility] note* Diagnosis Varicose veins of leg with pain, right- Primary [facility] Diagnosis Vitamin B12 deficiency Other B-complex deficiencies [facility] Diagnosis Liver cyst- Primary Other specified disorders of liver RUQ pain Abdominal pain, right upper quadrant documented in this encounter [facility] note* Diagnosis Stage 3 severe COPD by GOLD classification ([facility])- Primary documented in this encounter [facility] note* Diagnosis Stage 3 severe COPD by GOLD classification ([facility])- Primary Lung nodules Other nonspecific abnormal finding of lung field Cigarette smoker Tobacco use disorder Allergic rhinitis, unspecified seasonality, unspecified trigger documented in this encounter [facility] note* Diagnosis Allergic rhinitis, unspecified seasonality, unspecified trigger- Primary Asthma, unspecified asthma severity, unspecified whether complicated, unspecified whether persistent documented in this encounter [facility] note* Diagnosis Essential hypertension Unspecified essential hypertension [facility] Diagnosis Chronic obstructive pulmonary disease, unspecified COPD type (HCC) Stage 3 severe COPD by GOLD classification ([facility]) [facility] Diagnosis Essential hypertension Unspecified essential hypertension documented in this encounter [facility] note* Diagnosis RUQ pain- Primary Abdominal pain, right upper quadrant Essential hypertension Unspecified essential hypertension Vitamin B12 deficiency Other B-complex deficiencies documented in this encounter [facility] note* Diagnosis Essential hypertension- Primary Unspecified essential hypertension [facility] Diagnosis Burning with urination- Primary Dysuria Marta vaginitis Candidiasis of vulva and vagina [facility] Diagnosis Stage 3 severe COPD by GOLD classification ([facility])- Primary Essential hypertension Unspecified essential hypertension Gastroesophageal reflux disease without esophagitis Esophageal reflux VAIBHAV (obstructive sleep apnea) Obstructive sleep apnea (adult) (pediatric) Multiple lung nodules on CT Smoker Tobacco use disorder [facility] Diagnosis Chronic obstructive pulmonary disease, unspecified COPD type (HCC) documented in this encounter [facility] note* Diagnosis Encounter for screening for lung cancer- Primary Tobacco use current documented in this encounter [facility] note* Diagnosis Lung nodules- Primary Other nonspecific abnormal finding of lung field documented in this encounter [facility] note* Diagnosis Tobacco use current documented in this encounter [facility] note* Diagnosis Lung nodules Other nonspecific abnormal finding of lung field documented in this encounter [facility] note* Diagnosis RUQ pain Abdominal pain, right upper quadrant Liver cyst Other specified disorders of liver documented in this encounter [facility] for referral (narrative)* Diagnostic Procedure Only (Routine) - Pending Review Specialty Diagnoses / Procedures Referred By Prema connor Referred To Contact [facility] Diagnoses Encounter for screening mammogram for breast cancer Procedures BRYAN SCREENING SCREENING MAMMOGRAPHY BI 2-VIEW BREAST INC CAD Jose Carlos Jones MD [address] [place] [address] Br Imaging [facility] [place] [address] Referral ID Status Reason Start Date Expiration Date Visits Requested Visits Authorized [id number] Pending Review Auto-Generat ed Referral 10/11/2021 11/10/2022 1 1 [facility] for referral (narrative)* Diagnostic Procedure Only (Routine) - Closed Specialty Diagnoses / Procedures Referred By Prema connor Referred To Contact [facility] Diagnoses RUQ pain Liver cyst Procedures US ABD RT UPPER QUADRANT US ABDOMINAL REAL TIME W/IMAGE LIMITED Jose Carlos Jones MD [address] [place] [id number] [place] [address] Referral ID Status Reason Start Date Expiration Date V isits Requested Visits Authorized [id number] Closed Auto-Generate d Referral 03/16/2022 04/15/2023 1 1 [facility] Summary Purpose Family History No Family History Records FoundNo Family History Records FoundNo Family History Records FoundNo Family History Records Found Advance Directives No Advanced Directives Records FoundNo Advanced Directives Records FoundNo Advanced Directives Records FoundNo Advanced Directives Records Found Reason for Referral Specialty Diagnoses / Procedures Referred By Contac t Referred To Contact Diagnoses Hepatic cyst Procedures CONSULT TO HEPATOLOGY OFFICE/OUTPATIENT [facility] 60-74 MINUTES Gail Cuellar 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 [address] [place] [address] Referral ID Status Reason Start Date Expiration Date Visits Requested Visits Authorized [id number] Authorized PCP Requested Referral 11/29/2021 11/29/2022 1 1 Specialty Diagnoses / Procedures Referred By Contac t Referred To Contact [facility] Diagnoses Chronic bilateral low back pain with sciatica, sciatica laterality unspecified Procedures CONSULT TO [facility] OFFICE/OUTPATIENT [facility] 60-74 MINUTES Shital Briseno, 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 [address] [place] [id number] Referral ID Status Reason Start Date Expiration Date Visits Requested Visits Authorized [id number] Authorized PCP Requested Referral 12/13/2021 12/13/2022 1 1 Specialty Diagnoses / Procedures Referred By Contac t Referred To Contact Vascular Surgery Diagnoses Varicose veins of leg with pain, right Procedures CONSULT TO VASCULAR SURGERY Laverne Joel, 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 [address] [place] [address] [address] [place] [phone] Referral ID Status Reason Start Date Expiration Date Visits Requested Visits Authorized [id number] Ref Not Required PCP Requested Referral 03/20/2022 03/20/2023 1 1 Specialty Diagnoses / Procedures Referred By Contac t Referred To Contact Gastroenterology Diagnoses Liver cyst RUQ pain Procedures CONSULT TO GASTROENTEROLOGY OFFICE/OUTPATIENT [facility] 60-74 MINUTES Jose Carlos Jones MD [address] [place] [address] Referral ID Status Reason Start Date Expiration Date Visits Requested Visits Authorized [id number] Authorized PCP Requested Referral 03/23/2022 03/23/2023 1 1 Specialty Diagnoses / Procedures Referred By Contac t Referred To Contact Gillian Dickerson MD [address] [place] [address] Referral ID Status Reason Start Date Expiration Date Visits Re quested Visits Authorized [id number] Closed 1 1 Specialty Diagnoses / Procedures Referred By Contac t Referred To Contact Diagnoses Chronic obstructive pulmonary disease, unspecified COPD type (HCC) Gillian Dickerson MD [address] [place] [address] Referral ID Status Reason Start Date Expiration Date Visits Re quested Visits Authorized [id number] Closed 1 1 Specialty Diagnoses / Procedures Referred By Contac t Referred To Contact CT IMAGING Diagnoses Tobacco use current Procedures CT LUNG SCREEN WO IVCON COMPUTED TOMOGRAPHY THORAX LW DOSE LNG CA SCR C- Francesco Foley, 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 [id number] [facility] Referral ID Status Reason Start Date Expiration Date Visits Requested Visits Authorized [id number] Authorized Auto-Generat ed Referral 3 04/06/2023 1 1 Specialty Diagnoses / Procedures Referred By Contac t Referred To Contact CT IMAGING Diagnoses Lung nodules Procedures CT LUNG FOLLOWUP WO IVCON DIAGNOSTIC COMPUTED TOMOGRAPHY THORAX W/O CNTRST Francesco Foley, 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 [address] [place] [phone] Imaging [facility] Referral ID Status Reason Start Date Expiration Date Visits Requested Visits Authorized [id number] Pending Review Auto-Generat ed Referral 3 03/12/2024 1 1 Referral ID Status Reason Start Date Expiration Date V isits Requested Visits Authorized [id number] Closed Auto-Generate d Referral 02/05/2023 04/06/2023 1 1 Specialty Diagnoses / Procedures Referred By Contac t Referred To Contact CT IMAGING Diagnoses Lung nodules Procedures CT CHEST WO IVCON DIAGNOSTIC COMPUTED TOMOGRAPHY THORAX W/O [facility] Gillian Dickerson MD [address] [place] [address] [place] [address] Referral ID Status Reason Start Date Expiration Date V isits Requested Visits Authorized [id number] Closed Auto-Generate d Referral 02/07/2022 04/08/2022 1 1 Health Concerns Infection Onset Date Last Indicated Resolved Time COVID-19 Rule-Out 01/06/2022 01/06/2022 Additional Source Comments INFORMATION SOURCE (unrecogn ized section and content) DATE CREATED AUTHOR AUTHOR'S ORGANIZ ATION 02/08/2019 [facility] DATE CREATED AUTHOR AUTHOR'S ORGANIZ ATION 02/13/2023 [facility] DATE CREATED AUTHOR AUTHOR'S ORGANIZ ATION 04/07/2023 [facility] Source Comments (unrecognize d section and content) In the event this informatio n is protected by the Federal Confidentiality of Alcohol and Drug Abuse Patient Records regulations: The Federal rules restrict any use of the information to criminally investigate or prosecute any alcohol or drug abuse patient.[facility] the event this information is protected by the Federal Confidentiality of Alcohol and Drug Abuse Patient Records regulations: The Federal rules restrict any use of the information to criminally investigate or prosecute any alcohol or drug abuse patient.[facility] the event this information is protected by the Federal Confidentiality of Alcohol and Drug Abuse Patient Records regulations: The Federal rules restrict any use of the information to criminally investigate or prosecute any alcohol or drug abuse patient.[facility] the event this information is protected by the Federal Confidentiality of Alcohol and Drug Abuse Patient Records regulations: The Federal rules restrict any use of the information to criminally investigate or prosecute any alcohol or drug abuse patient.[facility] the event this information is protected by the Federal Confidentiality of Alcohol and Drug Abuse Patient Records regulations: The Federal rules restrict any use of the information to criminally investigate or prosecute any alcohol or drug abuse patient.[facility] the event this information is protected by the Federal Confidentiality of Alcohol and Drug Abuse Patient Records regulations: The Federal rules restrict any use of the information to criminally investigate or prosecute any alcohol or drug abuse patient.[facility]ron[facility] the event this information is protected by the Federal Confidentiality of Alcohol and Drug Abuse Patient Records regulations: The Federal rules restrict any use of the information to criminally investigate or prosecute any alcohol or drug abuse patient.[facility]ron[facility] the event this information is protected by the Federal Confidentiality of Alcohol and Drug Abuse Patient Records regulations: The Federal rules restrict any use of the information to criminally investigate or prosecute any alcohol or drug abuse patient.[facility] the event this information is protected by the Federal Confidentiality of Alcohol and Drug Abuse Patient Records regulations: The Federal rules restrict any use of the information to criminally investigate or prosecute any alcohol or drug abuse patient.[facility] the event this information is protected by the Federal Confidentiality of Alcohol and Drug Abuse Patient Records regulations: The Federal rules restrict any use of the information to criminally investigate or prosecute any alcohol or drug abuse patient.[facility] the event this information is protected by the Federal Confidentiality of Alcohol and Drug Abuse Patient Records regulations: The Federal rules restrict any use of the information to criminally investigate or prosecute any alcohol or drug abuse patient.[facility]In the event this information is protected by the Federal Confidentiality of Alcohol and Drug Abuse Patient Records regulations: The Federal rules restrict any use of the information to criminally investigate or prosecute any alcohol or drug abuse patient.[facility]In the event this information is protected by the Federal Confidentiality of Alcohol and Drug Abuse Patient Records regulations: The Federal rules restrict any use of the information to criminally investigate or prosecute any alcohol or drug abuse patient.[facility]ronIn the event this information is protected by the Federal Confidentiality of Alcohol and Drug Abuse Patient Records regulations: The Federal rules restrict any use of the information to criminally investigate or prosecute any alcohol or drug abuse patient.[facility]ronIn the event this information is protected by the Federal Confidentiality of Alcohol and Drug Abuse Patient Records regulations: The Federal rules restrict any use of the information to criminally investigate or prosecute any alcohol or drug abuse patient.[facility]ronIn the event this information is protected by the Federal Confidentiality of Alcohol and Drug Abuse Patient Records regulations: The Federal rules restrict any use of the information to criminally investigate or prosecute any alcohol or drug abuse patient.[facility]ronIn the event this information is protected by the Federal Confidentiality of Alcohol and Drug Abuse Patient Records regulations: The Federal rules restrict any use of the information to criminally investigate or prosecute any alcohol or drug abuse patient.[facility]ronIn the event this information is protected by the Federal Confidentiality of Alcohol and Drug Abuse Patient Records regulations: The Federal rules restrict any use of the information to criminally investigate or prosecute any alcohol or drug abuse patient.[facility]ronIn the event this information is protected by the Federal Confidentiality of Alcohol and Drug Abuse Patient Records regulations: The Federal rules restrict any use of the information to criminally investigate or prosecute any alcohol or drug abuse patient.[facility]ronIn the event this information is protected by the Federal Confidentiality of Alcohol and Drug Abuse Patient Records regulations: The Federal rules restrict any use of the information to criminally investigate or prosecute any alcohol or drug abuse patient.[facility]In the event this information is protected by the Federal Confidentiality of Alcohol and Drug Abuse Patient Records regulations: The Federal rules restrict any use of the information to criminally investigate or prosecute any alcohol or drug abuse patient.[facility]ronIn the event this information is protected by the Federal Confidentiality of Alcohol and Drug Abuse Patient Records regulations: The Federal rules restrict any use of the information to criminally investigate or prosecute any alcohol or drug abuse patient.[facility]ronIn the event this information is protected by the Federal Confidentiality of Alcohol and Drug Abuse Patient Records regulations: The Federal rules restrict any use of the information to criminally investigate or prosecute any alcohol or drug abuse patient.[facility]In the event this information is protected by the Federal Confidentiality of Alcohol and Drug Abuse Patient Records regulations: The Federal rules restrict any use of the information to criminally investigate or prosecute any alcohol or drug abuse patient.[facility]ronIn the event this information is protected by the Federal Confidentiality of Alcohol and Drug Abuse Patient Records regulations: The Federal rules restrict any use of the information to criminally investigate or prosecute any alcohol or drug abuse patient.[facility]ronIn the event this information is protected by the Federal Confidentiality of Alcohol and Drug Abuse Patient Records regulations: The Federal rules restrict any use of the information to criminally investigate or prosecute any alcohol or drug abuse patient.[facility]In the event this information is protected by the Federal Confidentiality of Alcohol and Drug Abuse Patient Records regulations: The Federal rules restrict any use of the information to criminally investigate or prosecute any alcohol or drug abuse patient.[facility]In the event this information is protected by the Federal Confidentiality of Alcohol and Drug Abuse Patient Records regulations: The Federal rules restrict any use of the information to criminally investigate or prosecute any alcohol or drug abuse patient.[facility]ronIn the event this information is protected by the Federal Confidentiality of Alcohol and Drug Abuse Patient Records regulations: The Federal rules restrict any use of the information to criminally investigate or prosecute any alcohol or drug abuse patient.[facility]ronIn the event this information is protected by the Federal Confidentiality of Alcohol and Drug Abuse Patient Records regulations: The Federal rules restrict any use of the information to criminally investigate or prosecute any alcohol or drug abuse patient.[facility]ronIn the event this information is protected by the Federal Confidentiality of Alcohol and Drug Abuse Patient Records regulations: The Federal rules restrict any use of the information to criminally investigate or prosecute any alcohol or drug abuse patient.[facility]ronIn the event this information is protected by the Federal Confidentiality of Alcohol and Drug Abuse Patient Records regulations: The Federal rules restrict any use of the information to criminally investigate or prosecute any alcohol or drug abuse patient.[facility]ronIn the event this information is protected by the Federal Confidentiality of Alcohol and Drug Abuse Patient Records regulations: The Federal rules restrict any use of the information to criminally investigate or prosecute any alcohol or drug abuse patient.[facility]ronIn the event this information is protected by the Federal Confidentiality of Alcohol and Drug Abuse Patient Records regulations: The Federal rules restrict any use of the information to criminally investigate or prosecute any alcohol or drug abuse patient.[facility]ronIn the event this information is protected by the Federal Confidentiality of Alcohol and Drug Abuse Patient Records regulations: The Federal rules restrict any use of the information to criminally investigate or prosecute any alcohol or drug abuse patient.[facility]ronIn the event this information is protected by the Federal Confidentiality of Alcohol and Drug Abuse Patient Records regulations: The Federal rules restrict any use of the information to criminally investigate or prosecute any alcohol or drug abuse patient.[facility]In the event this information is protected by the Federal Confidentiality of Alcohol and Drug Abuse Patient Records regulations: The Federal rules restrict any use of the information to criminally investigate or prosecute any alcohol or drug abuse patient.[facility]ronIn the event this information is protected by the Federal Confidentiality of Alcohol and Drug Abuse Patient Records regulations: The Federal rules restrict any use of the information to criminally investigate or prosecute any alcohol or drug abuse patient.[facility]ronIn the event this information is protected by the Federal Confidentiality of Alcohol and Drug Abuse Patient Records regulations: The Federal rules restrict any use of the information to criminally investigate or prosecute any alcohol or drug abuse patient.[facility] Care Teams (unrecognized sec tion and content) School Teacher Relationship Specialty Start Date End Date Jose Carlos Jones MD [address] [place] [address] PCP - General Family Practice 08/06/14 School Teacher Relationship Specialty Start Date End Date Jose Carlos Jones MD [address] [place] [address] PCP - General Family Practice 08/06/14 School Teacher Relationship Specialty Start Date End Date Jose Carlos Jones MD [facility] [place] [address] PCP - General Family Practice 08/06/14 School Teacher Relationship Specialty Start Date End Date Jose Carlos Jones MD [facility] [place] [address] PCP - General Family Practice 08/06/14 School Teacher Relationship Specialty Start Date End Date Jose Carlos Jones MD [address] [place] [address] PCP - General Family Medicine 08/06/14 School Teacher Relationship Specialty Start Date End Date Jose Carlos Jones MD [facility] [place] [address] PCP - General Family Medicine 08/06/14 School Teacher Relationship Specialty Start Date End Date Jose Carlos Jones MD [address] [place] [address], [place] [address] PCP - General Family Medicine 08/06/14 School Teacher Relationship Specialty Start Date End Date Jose Carlos Jones MD [address] [place] [address], [place] [address] PCP - General Family Medicine 08/06/14 School Teacher Relationship Specialty Start Date End Date Jose Carlos Jones MD [address] [place] [address], [place] [address] PCP - General Family Medicine 08/06/14 School Teacher Relationship Specialty Start Date End Date Jose Carlos Jones MD [address] [place] [address], [place] [address] PCP - General Family Medicine 08/06/14 School Teacher Relationship Specialty Start Date End Date Jose Carlos Jones MD [facility] [place] [address] PCP - General Family Medicine 08/06/14 School Teacher Relationship Specialty Start Date End Date Jose Carlos Jones MD [address] [place] [address], [place] [address] PCP - General Family Medicine 08/06/14 School Teacher Relationship Specialty Start Date End Date Jose Carlos Jones MD [address] [place] [address], [place] [address] PCP - General Family Medicine 08/06/14 School Teacher Relationship Specialty Start Date End Date Jose Carlos Jones MD [address] [place] [address] PCP - General Family Medicine 08/06/14 School Teacher Relationship Specialty Start Date End Date Jose Carlos Jones MD [facility] [place] [address] PCP - General Family Medicine 08/06/14 School Teacher Relationship Specialty Start Date End Date Jose Carlos Jones MD [address] [place] [address], [place] [address] PCP - General Family Medicine 08/06/14 School Teacher Relationship Specialty Start Date End Date Jose Carlos Jones MD [address] [place] [address], [place] [address] PCP - General Family Medicine 08/06/14 School Teacher Relationship Specialty Start Date End Date Jose Carlos Jones MD [facility] [place] [address] PCP - General Family Medicine 08/06/14 School Teacher Relationship Specialty Start Date End Date Jose Carlos Jones MD [facility] [place] [address] PCP - General Family Medicine 08/06/14 School Teacher Relationship Specialty Start Date End Date Jose Carlos Jones MD [address] [place] [address], [place] [address] PCP - General Family Medicine 08/06/14 School Teacher Relationship Specialty Start Date End Date Jose Carlos Jones MD [address] [place] [address], [place] [address] PCP - General Family Medicine 08/06/14 School Teacher Relationship Specialty Start Date End Date Jose Carlos Jones MD [address] [place] [address], [place] [address] PCP - General Family Medicine 08/06/14 School Teacher Relationship Specialty Start Date End Date Jose Carlos Jones MD [address] [place] [address] PCP - General Family Medicine 08/06/14 School Teacher Relationship Specialty Start Date End Date Jose Carlos Jones MD [address] [place] [address] PCP - General Family Medicine 08/06/14 School Teacher Relationship Specialty Start Date End Date Jose Carlos Jones MD [address] [place] [address] PCP - General Family Medicine 08/06/14 Gillian Dickerson MD [address] [place] [address] Pulmonary and Critical Care Medicine 02/05/23 School Teacher Relationship Specialty Start Date End Date Jose Carlos Jones MD [address] [place] [address] PCP - General Family Medicine 08/06/14 Gillian Dickerson MD [address] [place] [address] Pulmonary and Critical Care Medicine 02/05/23 School Teacher Relationship Specialty Start Date End Date Jose Carlos Jones MD [address] [place] [address] PCP - General Family Medicine 08/06/14 School Teacher Relationship Specialty Start Date End Date Jose Carlos Jones MD [address] [place] [address] PCP - General Family Medicine 08/06/14 School Teacher Relationship Specialty Start Date End Date Jose Carlos Jones MD [address] [place], [place] [address] PCP - General Family Medicine 08/06/14 Gillian Dickerson MD [address] [place], [place] [address] Pulmonary and Critical Care Medicine 02/05/23 School Teacher Relationship Specialty Start Date End Date Jose Carlos Jones MD [address] [place], [place] [address] PCP - General Family Medicine 08/06/14 Gillian Dickerson MD [address] [place], [place] [id number] Pulmonary and Critical Care Medicine 02/05/23 Reason for Visit (unrecogniz ed section and content) Reason Comments Hospital [facility] f/u; COPD Reason Comments Back Pain Left side upper and mid back pain x 1 month Reason Onset Date Comments Transition Of Care 11/28/2021 11/26/21 Reason Onset Date Comments Refill Request 12/26/2021 Reason Comments Future Appointment Reason Comments Sore Throat Weak, chills x 3 wee ks Reason Comments Results, Lab Reason Comments Results Reason Comments Spirometry Specialty Diagnoses / Procedures Referred By Contac t Referred To Contact [facility] Diagnoses Asthma, unspecified asthma severity, unspecified whether complicated, unspecified whether persistent Procedures SPIROMETRY - BASELINE AND POST DILATOR BRNCDILAT RSPSE SPMTRY PRE&POST-BRNCDILAT ADMN Gillian Dickerson MD [address] [place] [address] [facility] [address] [place] [address] Referral ID Status Reason Start Date Expiration Date V isits Requested Visits Authorized [id number] Closed Auto-Generate d Referral 02/06/2022 01/18/2023 1 1 Reason Comments Lab Orders Reason Comments Refill Request Reason Comments Medication Problem Reason Comments painful vein Reason Comments Results Reason Comments Medication Problem Needs refills. Reason Comments COPD Reason Onset Date Comments Refill Request 04/18/2022 Reason Onset Date Comments Refill Request 05/09/2022 Reason Onset Date Comments Refill Request 05/10/2022 Reason Comments Follow Up Patient is here 2 mo nth follow up on RUQ pain Reason Comments Recheck Blood pressure Reason Onset Date Comments Refill Request 08/13/2022 Reason Onset Date Comments Refill Request 10/08/2022 Reason Comments Urinary Problem burning with urinati on and vaginal swelling x this am Reason Comments Physical Reason Onset Date Comments Refill Request 01/31/2023 Reason Comments screening for lung cancer Reason Comments Radiology CT Specialty Diagnoses / Procedures Referred By Contac t Referred To Contact CT IMAGING Diagnoses Tobacco use current Procedures CT LUNG SCREEN WO IVCON COMPUTED TOMOGRAPHY THORAX LW DOSE LNG CA SCR C- [place], 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, 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 [address] [place] [id number] Imaging [place] [address] Referral ID Status Reason Start Date Expiration Date V isits Requested Visits Authorized [id number] Closed Auto-Generate d Referral 02/05/2023 04/06/2023 1 1 Specialty Diagnoses / Procedures Referred By Contac t Referred To Contact CT IMAGING Diagnoses Lung nodules Procedures CT CHEST WO IVCON DIAGNOSTIC COMPUTED TOMOGRAPHY THORAX W/O Gillian Leal MD [address] [place] [address] Ct Imaging [place] [address] Referral ID Status Reason Start Date Expiration Date V isits Requested Visits Authorized [id number] Closed Auto-Generate d Referral 02/07/2022 04/08/2022 1 1 Reason Comments Radiology US Specialty Diagnoses / Procedures Referred By Contac t Referred To Contact US IMAGING Diagnoses RUQ pain Liver cyst Procedures US ABD RT UPPER QUADRANT US ABDOMINAL REAL TIME W/IMAGE LIMITED Jose Carlos Jones MD [address] [place] [address] [facility] [place] [address] Referral ID Status Reason Start Date Expiration Date V isits Requested Visits Authorized [id number] Closed Auto-Generate d Referral 03/16/2022 04/15/2023 1 1 Reason Comments Patient Update Patient received voi cemail's regarding note and will be there 02/28/2023 to pick it up from the commercial front load operator. Reason Comments Letter FOR RECORDS PERTAINING TO PATIENTS WHO ARE OR HAVE BEEN ENROLLED IN A CHEMICAL DEPENDENCY/SUBSTANCEABUSE PROGRAM, SOME INFORMATION MAY BE OMITTED. This clinical summary was aggregated from multiple sources. Caution should be exercised in using it in the provision of clinical care. This summary normalizes information from multiple sources, and as a consequence, information in this document may materially change the coding, format and clinical context of patient data. In addition, data may be omitted in some cases. CLINICAL DECISIONS SHOULD BE BASED ON THE PRIMARY CLINICAL RECORDS. [facility] Relationship Science [facility]. provides no warranty or guarantee of the accuracy or completeness of information in this document.
[2023-05-02 17:40] LABS: ALB/GLOB Ratio 1.1 RATIO (0.9-2.4); AST(SGOT) 32 U/L (15-37); Alanine Aminotransfer ALT/SGPT 24 U/L (13-56); Albumin, Serum 3.6 g/dL (3.2-5.0); Alkaline Phosphatase 51 U/L (45-117); Anion Gap 4 (5-15); BUN 13 mg/dL (7-18); BUN/Creat Ratio 11.8 RATIO (10-20); Calcium,Total 9.1 mg/dL (8.5-10.1); Chloride 99 mmol/L (98-107); EST Glomerular Filtration Rate 53 mL/min (>60); Est Glom Filt Rate - Afr Amer 65 mL/min (>60); Estimated Creatinine Clearance 43.67 ml/min; Globulin 3.4 g/dL (2.2-4.2); Glucose 96 mg/dL (74-106); Lipase 22 U/L (13-75); Potassium 3.3 mmol/L (3.5-5.1); Sodium Level 140 mmol/L (136-145)
--- NOTE | 2023-05-02 18:07 | CT_ITS ---
STUDY: CT ABDOMEN AND PELVIS WITH CONTRAST REASON FOR EXAM: Female, 62 years old. rlq abdominal pain RADIATION DOSAGE (If Supplied By Facility): CTDIvol = ( 10.84 ) mGy, DLP = ( 375.85 ) mGycm TECHNIQUE: Transaxial images were obtained from the dome of the diaphragm to the symphysis pubis without oral contrast. IV 100mL Isovue-370 was administered. Sagittal and coronal images were reconstructed. Individualized dose optimization techniques were used for this CT. COMPARISON: November 17, 2017. FINDINGS: Left lower lobe stable 6 mm nodule. Mild effusion is bilaterally. The visualized portions of the heart are within normal limits. Subcentimeter cysts in the liver. Normal gallbladder and extrahepatic biliary system. Normal spleen. Normal pancreas. Normal bilateral adrenal glands. Normal right kidney. Normal left kidney. Normal visualized stomach. Normal small intestine. Fecal retention in the colon. The appendix is not visualized. Normal abdominal aorta. Normal inferior vena cava. Normal retroperitoneum. Normal urinary bladder. Normal abdominal wall. Interval compression of T12 and L2 vertebral bodies. CT/Abdomen/Pelvis W IV Cont ONLY IMPRESSION: Colonic fecal retention. Multiple hepatic cysts. Interval T12 and L2 compression. Electronically Signed: Willy Hudson DO at 19:07 [facility] ,
--- NOTE | 2023-05-02 18:09 | ED.VIS.GI ---
HPI HPI - GI History of Present Illness Chief Complaint: Abd Pain Narrative Narrative: 62-year-old female presenting with right-sided abdominal pain. She states has had this in the past. She states she believes last time she was told it was gas. States the pain is more severe this time. It started at 5 AM this morning. Is been persistent all day. No nausea or vomiting. No fever or chills. No constipation or diarrhea. Patient has had surgery in her abdomen once and she had a lap cholecystectomy. Denies any urinary or vaginal complaints. PFSH PFSH Medical History Anxiety Asthma Bipolar disorder COPD (chronic obstructive pulmonary disease) CPAP (continuous positive airway pressure) dependence Depression GERD (gastroesophageal reflux disease) HTN (hypertension) Migraines Sleep apnea Smoker Home Medications lansoprazole 15 mg capsule,delayed release 15 mg PO DAILY 11/24/21 [History Last Taken 11/24/21] polyethylene glycol 3350 17 gram/dose oral powder (Miralax) 17 g PO BID PRN PRN Constipation 11/24/21 [History Last Taken Unknown] albuterol sulfate 2.5 mg/3 mL (0.083 %) solution for nebulization 2.5 mg (3 mL) inhalation Q2H PRN PRN Dyspnea, wheezing 2 weeks #180 mL 11/26/21 [Rx Last Taken Unknown] guaifenesin 1,200 mg tablet, extended release 12 hr (Mucus Relief ER) 1,200 mg PO BID 14 days #28 tabs 11/26/21 [Rx Last Taken Unknown] ipratropium 0.5 mg-albuterol 3 mg (2.5 mg base)/3 mL nebulization soln 3 ml inhalation Q4HWA.RT COPD, exacerbation, hypoxia 2 weeks #180 mL 11/26/21 [Rx Last Taken Unknown] nebulizer accessories #1 ea 11/26/21 [Rx Last Taken Unknown] naproxen 500 mg tablet 500 mg PO BID #10 tabs 12/16/21 [Rx Last Taken Unknown] fluoxetine 20 mg capsule 20 mg PO DAILY 05/18/22 [History Last Taken Unknown] hydroxyzine HCl 25 mg tablet 25 mg PO QHS 05/18/22 [History Last Taken Unknown] meclizine 25 mg tablet 25 mg PO DAILY PRN dizziness 05/18/22 [History Last Taken Unknown] lisinopril 10 mg tablet 10 mg PO DAILY 05/02/23 [History Last Taken Unknown] Allergy/AdvReac Type Severity Reaction Status Date / Time Latex, Natural Rubber Allergy Rash Verified 05/02/23 16:53 Sulfa (Sulfonamide Allergy Other Verified 05/02/23 16:53 Antibiotics) nabumetone AdvReac Intermediate Other Verified 05/02/23 16:53 meloxicam AdvReac Mild Other Verified 05/02/23 16:53 Family History Mother Heart disease Father Heart disease Surgical History H/O shoulder surgery History of cholecystectomy History of tonsillectomy Social History household members: none Smoking Status: Current every day smoker tobacco type: cigarettes alcohol intake: former details: Reports prior heavy EtOH abuse, notes she does not drink routinely, vague. substance use type: does not use ROS ROS ED Constitutional Constitutional ED: Denies chills, fever(s) or sweats Eyes Eyes: Denies blurry vision or change in vision ENT ENT ED: Denies ear pain or sore throat Cardiovascular Cardiovascular: Denies chest pain, palpitations or racing heartbeat Respiratory/Chest Respiratory/Chest: Denies cough, dyspnea or sputum Gastrointestinal Gastrointestinal: Reports abdominal pain; Denies constipation, diarrhea, nausea or vomiting Genitourinary Genitourinary ED: Denies dysuria, hematuria or urinary frequency Musculoskeletal Musculoskeletal: Denies arthralgias, myalgias or neck pain Integumentary Denies abscess, Abrasions or rash Neurologic Neurologic: Denies headache(s), paresthesias or weakness Psychiatric Psychiatric: Denies anxiety, depression, suicidal ideation or suicidal thoughts Endocrine Endocrinology: Denies polydipsia or polyuria EXAM Physical Exam Const Vital Signs: 05/02/23 16:53 05/02/23 19:31 Temperature 97 F L Temperature Source Temporal Pulse Rate 92 81 Respiratory Rate 18 16 Blood Pressure 145/99 H 141/103 H Blood Pressure Mean 114 115 Pulse Ox 93 94 Oxygen Delivery Method Room Air Room Air Positive well nourished General Appearance ED: NAD; Negative for pallor HEENT Reports moist mucous membranes normocephalic and atraumatic Eyes PERRL General Eye ED: Negative for pale conjunctiva Resp normal respiratory effort and clear to auscultation bilaterally Auscultation: Negative for rales, rhonchi or wheezes Cardio regular rate and regular rhythm GI Palpation: tender RLQ Back/Spine no CVA tenderness Neuro CN's II-XII intact bilaterally Sensorium / Orientation: alert Psych mental status grossly normal and thought process normal Skin no wounds General Skin Exam: Negative for jaundice or pallor MDM MDM MDM Narrative Medical decision making narrative: 62-year-old female with right-sided abdominal pain. Patient presenting with right flank pain. Differential includes colitis, diverticulitis, gastritis, pancreatitis, constipation, appendicitis, UTI, pyelonephritis, calculi, ureteral calculi, obstruction, malignancy, dehydration, electrolyte abnormalities, ovarian torsion, ovarian cyst. CBC obtained to assess white blood cell count, hemoglobin, platelets. CMP to assess liver function, renal function, electrolytes, glucose. Lipase to assess for pancreatitis. Patient medicated with Toradol as she states that she has had a good relationship with this in the past . Patient does not request anything for nausea. Will obtain CT of the abdomen pelvis with IV contrast. CBC shows normal white blood cell count of 6.5. Hemoglobin 14.1. Platelets 339. Creatinine slightly elevated at 1.10 CT of the abdomen pelvis shows no acute surgical abnormality. Patient does have constipation noted on CT. Patient counseled of findings. It also noted she has some interval T1 and T12 compression deformities. These are incidental findings. Patient discharged stable condition. Impression: 1. Abdominal pain 2. Constipation 3. Compression deformities T1, T12 Lab Data Attestation: I reviewed the patient's lab results. Labs: Laboratory Results - last 24 hr 05/02/23 05/02/23 17:02 18:20 WBC 6.5 RBC 4.52 Hgb 14.1 Hct 46.7 MCV 103.3 H MCH 31.2 MCHC 30.2 L RDW Std Deviation 52.6 H RDW Coeff of Sarah 13.9 Plt Count 339 MPV 9.1 Immature Gran % (Auto) 0.300 Neut % (Auto) 60.6 Lymph % (Auto) 26.0 [place] % (Auto) 10.5 H Eos % (Auto) 1.2 Baso % (Auto) 1.4 H Absolute Neuts (auto) 3.9 Absolute Lymphs (auto) 1.68 Nucleated RBC % 0 Sodium 140 Potassium 3.3 L Chloride 99 Carbon Dioxide 37.0 H Anion Gap 4 L BUN 13 Creatinine 1.10 H Estim Creat Clear Calc 43.67 Est GFR (MDRD) Af Amer 65 Est GFR (MDRD) Non-Af 53 L BUN/Creatinine Ratio 11.8 Glucose 96 Calcium 9.1 Total Bilirubin 0.30 AST 32 ALT 24 Alkaline Phosphatase 51 Total Protein 7.0 Albumin 3.6 Globulin 3.4 Albumin/Globulin Ratio 1.1 Lipase 22 Urine Color Yellow Urine Clarity Clear Urine pH 5.0 Ur Specific [place] 1.015 Urine Protein 30 H Urine Glucose (UA) Normal Urine Ketones 5 H Urine Occult Blood 25 H Urine Nitrite Negative Urine Bilirubin 1 H Urine Urobilinogen 1 H Ur Leukocyte Esterase 25 H Urine RBC 0-5 SEEN Urine WBC 0-5 SEEN Ur Squamous Epith Cells 0 SEEN Urine Bacteria 0 SEEN Urine Mucus 0 SEEN Radiography Diagnostic Testing: Clinical Impression(s) from Imaging Studies Abdomen/Pelvis CT 05/02/23 18:07 IMPRESSION: Colonic fecal retention. Multiple hepatic cysts. Interval T12 and L2 compression. Electronically Signed: iWlly Hudson DO at 19:07 EST Reading Location ID and State: [facility] / [place] Tel [phone], Service support , Discharge Plan Triage Chief Complaint: Abd Pain ED Provider: Rajinder Matute Dx/Rx/DC Orders Instructions: ED Abdominal Pain Unkn Cause Fem, ED Constipation (Adult) Prescriptions: No Action hydroxyzine HCl 25 mg tablet 25 mg PO QHS meclizine 25 mg tablet 25 mg PO DAILY PRN (Reason: dizziness) fluoxetine 20 mg capsule 20 mg PO DAILY lansoprazole 15 mg Capsule,Delayed Release(Dr/Ec) 15 mg PO DAILY polyethylene glycol 3350 [Miralax] 17 gram/dose powder 17 g PO BID PRN PRN (Reason: Constipation) ipratropium-albuterol 0.5 mg-3 mg(2.5 mg base)/3 mL Solution For Nebulization 3 ml inhalation Q4HWA.RT 14 Days Qty: 180 0RF albuterol sulfate 2.5 mg /3 mL (0.083 %) Solution For Nebulization 2.5 mg inhalation Q2H PRN PRN (Reason: Dyspnea, wheezing) 14 Days Qty: 180 0RF guaifenesin [Mucus Relief ER] 1,200 mg Tablet Extended Release 12hr 1,200 mg PO BID 14 Days Qty: 28 0RF (DME) nebulizer accessories Kit See Rx Instructions .Route Qty: 1 0RF Rx Instructions: As directed naproxen 500 mg tablet 500 mg PO BID Qty: 10 0RF lisinopril 10 mg tablet 10 mg PO DAILY Patient Comments: TAKE 1 TABLET BY MOUTH DAILY Primary Care Provider: Jose Carlos Lang Referrals: Jose Carlos Lang MD [Primary Care Provider] - Disposition Disposition: Home, Self Care Capacity 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 Next of kin: [place] law dictates a PRIORITY LIST for identifying legal decision-maker/legal next of kin in the following order (LNOK): 1st: The patient?s legal guardian, if any 2nd: The patient's spouse (if status is questionable, consult Risk Management) 3rd: The patient?s adult child(daljit) (majority, if multiple children) 4th: The patient?s parents 5th: The patient?s adult siblings (majority, if multiple children siblings)
[2023-05-02] MEDS: 0.9% Normal Saline (1000mL) 1,000 ML 999 ML IV (18:17)
[2023-05-02] MEDS: Ketorolac 15 MG/ML Vial IV (18:18)
[2023-05-02 18:27] LABS: Bacteria 0 SEEN /hpf (None Seen); Mucous, Urine 0 SEEN /hpf (<or=2+); Squamous Epithelial Cells - UA 0 SEEN /hpf (5-10)
[2023-05-02 18:30] LABS: Color, Urine Yellow (Yellow); Glucose, Dipstick Normal (Normal); Ketone-Dipstick 5 mg/dl (Negative); Leukocyte Esterase-Dipstick 25 /ul (Negative); Nitrite-Dipstick Negative (Negative); Occult Blood-Urine 25 /ul (Negative); Protein-Dipstick 30 mg/dl (Negative); Specific Gravity, Urine 1.015 (1.002-1.030); Urine Bilirubin Dipstick 1 mg/dL (Negative); Urine Clarity Clear (Clear); Urine Urobilinogen 1 mg/dl (Normal)
[2023-05-02 18:38] LABS: Red Blood Cells-Urine 0-5 SEEN /hpf (0-5); White Blood Cells 0-5 SEEN /hpf (0-5)
[2023-05-02 19:31] VITALS: BP 141/103; PULSE 81; RESP 16; O2SAT 94
[2023-05-02 20:09] VITALS: BP 143/98; PULSE 81; RESP 16; O2SAT 94
== END 2023-05-02 20:11 | disposition home or self-care (01) ==
PROVIDERS: Emergency Provider Student in an Organized Health Care Education/Training Program; PCP Family Medicine; Visit Provider Student in an Organized Health Care Education/Training Program
DX: R10.9 Unspecified abdominal pain (principal); J44.9 Chronic obstructive pulmonary disease, unspecified; F31.9 Bipolar disorder, unspecified; K59.00 Constipation, unspecified; I10 Essential (primary) hypertension; K21.9 Gastro-esophageal reflux disease without esophagitis; G47.30 Sleep apnea, unspecified; F17.210 Nicotine dependence, cigarettes, uncomplicated; Z79.899 Other long term (current) drug therapy; Z90.49 Acquired absence of other specified parts of digestive tract
CPT/HCPCS: 74177; 80053; 81001; 83690; 85025; 96361; 96374; 99283; J7030; Q9967; A4216

== ENCOUNTER 2024-06-26 14:53 | Emergency (ER) | payer MEDICAID, SELFPAY ==
[2024-06-26 14:53] VITALS: BP 121/87; PULSE 104; RESP 18; TEMP 35.5; O2SAT 98; BMI 16.0
--- NOTE | 2024-06-26 15:33 | EKG12_ITS ---
Test Reason : GENERAL Blood Pressure : */* mmHG Vent. Rate : 85 BPM Atrial Rate : 85 BPM P-R Int : 134 ms QRS Dur : 66 ms QT Int : 368 ms P-R-T Axes : 86 263 78 degrees QTcB Int : 437 ms Normal sinus rhythm Possible Left atrial enlargement Right superior axis deviation Pulmonary disease pattern Septal infarct (cited on or before 16-Nov-2017) Abnormal ECG Confirmed by RIP KHAN, MOOKIE ([id number]), sports editor NICOLE ALBERTO ([id number]) on 06/29/2024 10:56:28 AM Referred By: Confirmed By: MOOKIE ERWIN MD
--- NOTE | 2024-06-26 15:34 | EDS_ITS ---
HPI History of Present Illness Chief Complaint: General Illness Informant: patient Onset/Context/Timing Onset: Weeks and Month(s) Context: Gradual Onset Timing: Continuous Current Severity: Mild Maximum Severity: Mild Narrative Narrative: 64-year-old female history of bipolar disorder, COPD and hypertension. Patient states she has been feeling well for weeks to even months since April. States she been out of her blood pressure medication. Had nausea, vomiting and diarrhea several weeks ago that is since resolved. Denies chest pain. Denies fever. No new cough. Denies wheezing. Denies any trauma. No dysuria. No hematuria. Prior similar symptoms: Yes Recent Illness/Hospitalization: No PFSH PFS Medical History Bipolar disorder Anxiety Depression GERD (gastroesophageal reflux disease) CPAP (continuous positive airway pressure) dependence Sleep apnea Smoker Asthma Migraines COPD (chronic obstructive pulmonary disease) HTN (hypertension) Home Medications ?Medication ?Instructions ?Recorded ?Last Taken ?Type lansoprazole 15 mg capsule,delayed 15 mg PO DAILY 11/1311/24/21 History release polyethylene glycol 3350 17 17 g PO BID PRN PRN Consti pation 11/24/21 Unknown History gram/dose oral powder (Miralax) albuterol sulfate 2.5 mg/3 mL 2.5 mg (3 mL) inhalation Q2H PRN 11/26/21 Unknown Rx (0.083 %) solution for nebulization PRN Dyspnea, wheez ing 2 weeks #180 mL guaifenesin 1,200 mg tablet, 1,200 mg PO BID 14 days # 28 tabs 11/26/21 Unknown Rx extended release 12 hr (Mucus Relief ER) ipratropium 0.5 mg-albuterol 3 mg 3 ml inhalation Q4HW A.RT COPD, 11/26/21 Unknown Rx (2.5 mg base)/3 mL nebulization exacerbation, hypoxia 2 weeks #180 soln mL nebulizer accessories #1 ea 11/26/21 Unknown Rx hydroxyzine HCl 25 mg tablet 25 mg PO QHS 05/18/22 Unk nown History meclizine 25 mg tablet 25 mg PO DAILY PRN dizziness 05/18/22 Unknown History lisinopril 10 mg tablet 10 mg PO DAILY 05/02/23 Unkn own History hydroxyzine pamoate 25 mg capsule 25 mg PO TID 4 Unknown History (Vistaril) potassium chloride 20 mEq 40 meq (2 x 20 mEq) PO BID # 40 tabs 06/26/24 Unknown Rx tablet,extended release(part/cryst) Allergy/AdvReac Type Severity Reaction Status Date / Time Sulfa (Sulfonamide Allergy Intermediate Other Verified 06/26/24 14:56 Antibiotics) Latex, Natural Rubber Allergy Rash Verified 06/26/24 14:56 nabumetone AdvReac Intermediate Other Verified 06/26/24 14:56 meloxicam AdvReac Mild Nausea Verified 06/26/24 14:56 Family History Mother Heart disease Father Heart disease Surgical History History of tonsillectomy H/O shoulder surgery History of cholecystectomy Social History household members: none Smoking Status: Light Smoker (<10/day) Tobacco: How many years used: 45 alcohol intake: former details: Reports prior heavy EtOH abuse, notes she does not drink routinely, vague. substance use type: does not use ROS ROS ED ROS Narrative General malaise. Constitutional Constitutional ED: Denies chills or fever(s) Eyes Eyes: Denies blurry vision ENT ENT ED: Denies ear pain Cardiovascular Cardiovascular: Denies chest pain Respiratory/Chest Respiratory/Chest: Denies cough or dyspnea Gastrointestinal Gastrointestinal: Reports diarrhea, nausea, vomiting and other Details: Weeks ago. Now resolved. ; Denies abdominal pain, constipation or melena Genitourinary Genitourinary ED: Denies dysuria or hematuria Musculoskeletal Musculoskeletal: Denies arthralgias Integumentary Denies abscess Neurologic Neurologic: Denies headache(s) Psychiatric Psychiatric: Denies anxiety Endocrine Endocrinology: Denies cold intolerance Hematologic/Lymphatic Hematologic/Lymphatic: Reports none Allergic/Immunologic Allergic/Immunologic ED: Denies mouth swelling, tongue swelling or urticaria EXAM Physical Exam Narrative Exam Narrative: 64-year-old female vital signs are stable afebrile. She does not look septic or toxic. She is in no acute distress. Pulse ox 98% on room air no hypoxia. H EENT exam pupils round react light. Extra motions are intact. Moist mucous membranes. Neck nontender no JVD no lymphadenopathy. Lungs clear to auscultation bilaterally. No rales, rhonchi or wheezing. Equal symmetrical. No respiratory distress. Heart regular rhythm rate about 100 no murmur. Chest wall and ribs nontender. She is thin. Abdomen is soft and nontender. Normal bowel sounds without peritoneal signs. No mass. No distention. Moving all 4 extremities. Normal strength. Normal dorsi plantarflexion. Nontender no edema. Normal range of motion. Back nontender. Neurologically she is awake and alert no focal motor deficits. Answering questions following commands. NIH 0. Const Vital Signs: 06/26/24 14:53 06/26/24 15:11 Temperature 95.9 F L Temperature Source Oral Pulse Rate 104 H Respiratory Rate 18 Respiratory Effort Normal Non-Labored Respiratory Pattern Normal Blood Pressure 121/87 H Blood Pressure Mean 98 Pulse Ox 98 Oxygen Delivery Method Room Air Positive well nourished and well developed; Negative for obese, cachectic, contractures or unkempt General Appearance ED: well developed; Negative for unkempt, cachectic, contractures, cyanotic, diaphoretic or pallor Nutritional Appearance: Negative for cachectic or obese HEENT Reports moist mucous membranes Negative for trauma or tenderness Eyes PERRL and EOMs intact bilaterally General Eye ED: Negative for pale conjunctiva or scleral icterus Neck no lymphadenopathy, supple and no JVD Chest Wall inspection of chest normal and palpation of chest normal Resp normal respiratory effort and clear to auscultation bilaterally Effort and Inspection: Negative for retractions Auscultation: Negative for rales, rhonchi, wheezes or diminished lung sounds Cardio regular rate, regular rhythm, S1 normal heart sound, S2 normal heart sound and no murmurs Palpation: Negative for palpable S3 or palpable S4 Rate: Negative for bradycardia or tachycardic Rhythm: Negative for abnormal rhythm GI normal to inspection, nondistended, normoactive bowel sounds, non-tender, non- distended and no masses Palpation: soft; Negative for tender, guarding, splenomegaly, mass or rebound tenderness present Back/Spine no CVA tenderness General Back: Negative for CVA tenderness or other Cervical Spine: Negative for cervical spine tenderness Thoracic Spine / Upper Back: Negative for thoracic spinal tenderness or terrell jeimy muscle tenderness Lumbar Spine / Lower Back: Negative for lumbar spinal tenderness Extremity normal to inspection General Extremety ED: Negative for edema, tenderness or other findings General Extremity: Negative for edema or other findings Neuro oriented x3 and CN's II-XII intact bilaterally Sensorium / Orientation: alert; Negative for orientation impaired, lethargic or stuporous Motor Exam: strength 5/5 throughout Psych mental status grossly normal Appearance: Negative for unkempt Attitude: No agitated Mood & Affect: Negative for depressed, anxious or tearful Skin no rashes or lesions noted, no wounds and skin turgor normal General Skin Exam: elasticity normal; Negative for jaundice or pallor Lesions: No lesion noted Rashes: No rashes noted Trauma: Negative for abrasion Wounds: Negative for wounds noted MDM MDM MDM Narrative Medical decision making narrative: 64-year-old female with complaints for weeks to months with a benign exam. Screening labs, chest and EKG will be obtained. With her exam is very benign. Repeat exam at 4:49 PM patient doing well. No change. We went over low potassium. However her anemia. She did not want me to do a rectal exam. Said she has not seen any blood and was following up with her primary to get upper and lower endoscopy. She will be given oral potassium here and placed on potassium replacement at home. I will send that prescription to her pharmacy. History & Record Review Discussion w/independent historian: Patient Additional record(s) reviewed:: Prior inpatient record, Prior outpatient record, Prior ED visit and Prior labs Lab Data Attestation: I reviewed the patient's lab results. Lab results narrative: CBC shows a white count of 4.6. H&H 10.9 and 35. Platelets 265. Hemoglobin is lower than priors. Chest x-ray 2 view shallowing changes no acute process. COPD. Chemistries show a potassium of 2.9. Anion gap of 12. Normal BUN and creatinine. Liver enzymes are unremarkable. Labs: Laboratory Results - last 24 hr 06/26/24 15:45 WBC 4.6 RBC 3.37 L Hgb 10.9 L Hct 35.0 L MCV 103.9 H MCH 32.3 H MCHC 31.1 L RDW Std Deviation 59.0 H RDW Coeff of Sarah 15.5 H Plt Count 265 MPV 9.0 Immature Gran % (Auto) 0.200 Neut % (Auto) 57.1 Lymph % (Auto) 28.6 [place] % (Auto) 11.3 H Eos % (Auto) 1.3 Baso % (Auto) 1.5 H Absolute Neuts (auto) 2.6 Absolute Lymphs (auto) 1.32 Nucleated RBC % 0 Radiography Chest X-Ray - ED: Read by ED Physician, Heart, Lungs, Mediastinum, Bony Structures, No Acute Disease and Chronic Changes Diagnostic Testing: Chest x-ray, 2 views, AP and lateral, shoulder, myself shows no acute abnormality. Normal cardiac silhouette. Lung hardin consistent with COPD. Hyperinflation wall. No pneumonia. No infiltrate. No mass. Chronic changes. Rhythm Strip Rhythm Strip: Sinus Rhythm Rate: 85 Ectopy: None EKG Initial EKG: Attestation: I personally reviewed and interpreted this EKG as follows: Interpretation: Sinus Rhythm and No Acute Injury Pattern Discharge Plan Triage Chief Complaint: General Illness ED Provider: Beto Gresham Dx/Rx/DC Orders Clinical Impression: Malaise, Acute anemia, Acute hypokalemia Instructions: Anemia, ED Hypokalemia Prescriptions: New potassium chloride 20 mEq tablet,ER particles/crystals 40 meq PO BID Qty: 40 0RF No Action hydroxyzine HCl 25 mg tablet 25 mg PO QHS meclizine 25 mg tablet 25 mg PO DAILY PRN (Reason: dizziness) lansoprazole 15 mg Capsule,Delayed Release(Dr/Ec) 15 mg PO DAILY polyethylene glycol 3350 [Miralax] 17 gram/dose powder 17 g PO BID PRN PRN (Reason: Constipation) ipratropium-albuterol 0.5 mg-3 mg(2.5 mg base)/3 mL Solution For Nebulization 3 ml inhalation Q4HWA.RT 14 Days Qty: 180 0RF albuterol sulfate 2.5 mg /3 mL (0.083 %) Solution For Nebulization 2.5 mg inhalation Q2H PRN PRN (Reason: Dyspnea, wheezing) 14 Days Qty: 180 0RF guaifenesin [Mucus Relief ER] 1,200 mg Tablet Extended Release 12hr 1,200 mg PO BID 14 Days Qty: 28 0RF (DME) nebulizer accessories Kit See Rx Instructions .Route Qty: 1 0RF Rx Instructions: As directed lisinopril 10 mg tablet 10 mg PO DAILY Patient Comments: TAKE 1 TABLET BY MOUTH DAILY Primary Care Provider: Jose Carlos Lang Referrals: Jose Carlos Lang MD [Primary Care Provider] - As soon as possible (Call your doctor for follow-up appointment. You need to have your potassium rechecked because it was low today at 2.9. You also need to be scheduled for upper and lower endoscopy due to your anemia or low blood count.) Activity Restrictions/Additional Instructions: Your potassium is low today at 2.9. He will be written a prescription sent to your pharmacy to be taken to potassium pills twice a day. Also call your doctor in follow-up to have your potassium level rechecked. Also have your blood counts rechecked. Also you need to be scheduled for upper and lower endoscopy due to the low blood count. Return if feeling worse or you notice black stools. Print Language: Kazakh Disposition Disposition: Home, Self Care
[2024-06-26 16:04] LABS: Absolute Lymphocyte Count 1.32 X10^3/uL (0.83-4.51); Absolute Neutrophil Count 2.6 X10^3/uL (2.0-7.7); Basophil# 0.07 X10^3/uL; Basophil% 1.5 % (0-1); Eosinophil# 0.06 X10^3/uL; Eosinophils% 1.3 % (0-5); Hemoglobin 10.9 g/dL (12.0-15.0); Lymphocyte # 1.32 X10^3/ul (0.83-4.51); Lymphocyte % 28.6 % (19-41); Mean Corp Hgb Conc 31.1 g/dL (32-36); Mean Corpuscular Hgb 32.3 pg (27.0-32.0); Mean Corpuscular Volume 103.9 fL (81-99); Monocyte# 0.52 X10^3/uL; Monocyte% 11.3 % (0-10); NRBC Flagged by Analyzer 0 % (0-5); Neutrophil # 2.64 X10^3/uL (2.7-7.7); Neutrophil % 57.1 % (47-70); Platelet Count 265 K/mm3 (150-450); RBC Distribution Width CV 15.5 % (11.6-14.6); Red Blood Count 3.37 M/mm3 (4.2-5.4); White Blood Count 4.6 K/mm3 (4.4-11.0)
--- NOTE | 2024-06-26 16:05 | RAD_ITS ---
PROCEDURE: CHEST PA AND LATERAL (RADCXR), 06/26/2024 REASON FOR EXAM: COPD TECHNIQUE: PA and lateral views of the chest were obtained. COMPARISON: 11/24/2021 FINDINGS: Heart: Unremarkable. Mediastinum: Mild atherosclerosis in the aortic arch.. Similarly mildly prominent pulmonary arteries. Lungs/pleura: Emphysema with hyperinflation and hyperlucency as well as flattening of the diaphragms on the lateral view. Small nodule in the left lung base probably obscured previously but present on 11/17/2017.. No effusion or visible pneumothorax. Biapical pleural/parenchymal scarring. Bones: Demineralization. Multilevel spondylosis. Lower thoracic anterior wedge compression deformities are age indeterminate, new from 11/27/2017.. Old left rib fracture. Lines and support devices: None. RAD/Chest PA and Lateral IMPRESSION: 1. No visible acute cardiopulmonary findings. 2. Emphysema with pulmonary nodules better seen on CT 11/27/2017. Given emphys teja, recommend outpatient CT chest to evaluate stability. Additionally, consider ongoing lung cancer screening per the below. 3. Demineralization with new age indeterminate lower thoracic anterior wedge co mpression deformities since 11/27/2017. Correlate with history and point tenderness. 4. Additional description as above. The USPSTF recommends annual screening for lung cancer with low-dose computed t omography (LDCT) in adults aged 50 to 80 years who have a 20 pack-year smoking history and currently smoke or have quit within the past 15 years. Reading Location: [id number]
[2024-06-26 16:27] LABS: ALB/GLOB Ratio 1.9 RATIO (0.9-2.4); AST(SGOT) 23 U/L (<=31); Alanine Aminotransfer ALT/SGPT 6 U/L (<=34); Albumin, Serum 3.6 g/dL (3.4-4.8); Alkaline Phosphatase 34 U/L (35-104); Anion Gap 12 (5-15); BUN 10 mg/dL (4-19); BUN/Creat Ratio 8.9 RATIO (10-20); Calcium,Total 8.1 mg/dL (7.6-11.0); Carbon Dioxide 28.2 mmol/L (21.0-32.0); Chloride 102 mmol/L (98-108); Creatinine, Serum 1.14 mg/dL (0.70-1.20); EST Glomerular Filtration Rate 54 (>60); Estimated Creatinine Clearance 35.38 ml/min (50-250); Glucose 82 mg/dL (70-99); Potassium 2.9 mmol/L (3.3-5.1); Protein, Total 5.6 g/dL (5.9-8.4); Sodium Level 142 mmol/L (133-145)
[2024-06-26 17:02] VITALS: BP 122/95; PULSE 87; RESP 19; TEMP 36.9; O2SAT 97
[2024-06-26] MEDS: Potassium Chloride Oral Tablet 20 MEQ 60 MEQ PO (17:09)
== END 2024-06-26 17:15 | disposition home or self-care (01) ==
PROVIDERS: Emergency Provider Emergency Medicine; PCP Family Medicine; Visit Provider Emergency Medicine
DX: D64.9 Anemia, unspecified (principal); J44.9 Chronic obstructive pulmonary disease, unspecified; E87.6 Hypokalemia; R53.81 Other malaise; I10 Essential (primary) hypertension; F17.200 Nicotine dependence, unspecified, uncomplicated; Z79.51 Long term (current) use of inhaled steroids; Z79.899 Other long term (current) drug therapy
CPT/HCPCS: 71046; 80053; 85025; 93005; 99282; A4216

== ENCOUNTER 2024-08-18 13:38 | Inpatient (IN) | payer MEDICAID, SELFPAY ==
[2024-08-18] VITALS (15 sets, daily range): BP systolic 115–140; BP diastolic 74–99; PULSE 14–101; RESP 11–89; TEMP 36.2–36.8; O2SAT 72–100; BMI 21.2
--- NOTE | 2024-08-18 14:09 | RAD_ITS ---
PROCEDURE: CHEST PA AND LATERAL 08/18/2024 REASON FOR EXAM: RESPIRATORY FAILURE WITH HYPOXIA TECHNIQUE: Three-view PA and lateral chest. COMPARISON: PA and lateral chest of 06/26/2024. RAD/Chest PA and Lateral IMPRESSION: Chronic lung changes and hyperinflation are seen, consistent with chronic lung disease. No focal infiltrate is noted. No pleural effusion or pneumothorax is seen. The cardiomediastinal silhouette is within the normal range, and without eviden ce of cardiomegaly. Multiple thoracic spine compression fractures are again seen, with slight inter jose worsening a mid to upper thoracic spine compression fracture noted. No significant subluxation is seen. [id number] degenerative changes othe rwise noted at the visualized spine. Reading Location: [place] [id number]
--- NOTE | 2024-08-18 14:09 | EKG12_ITS ---
Test Reason : SOB Blood Pressure : */* mmHG Vent. Rate : 91 BPM Atrial Rate : 91 BPM P-R Int : 140 ms QRS Dur : 64 ms QT Int : 326 ms P-R-T Axes : 71 251 17 degrees QTcB Int : 400 ms Normal sinus rhythm Possible Left atrial enlargement Right superior axis deviation Possible Right ventricular hypertrophy Septal infarct (cited on or before 16-Nov-2017) Abnormal ECG Confirmed by Vitaliy Gomez ([id number]), film and video editor NICOLE ALBERTO ([id number]) on 08/21/2024 12:04:19 PM Referred By: Confirmed By: Vitaliy Gomez
[2024-08-18 14:21] LABS: Absolute Lymphocyte Count 1.65 X10^3/uL (0.83-4.51); Absolute Neutrophil Count 6.5 X10^3/uL (2.0-7.7); Basophil% 1.1 % (0-1); Eosinophil# 0.08 X10^3/uL; Eosinophils% 0.9 % (0-5); Hematocrit 45.5 % (37-47); Hemoglobin 13.8 g/dL (12.0-15.0); Lymphocyte # 1.65 X10^3/ul (0.83-4.51); Mean Corp Hgb Conc 30.3 g/dL (32-36); Mean Corpuscular Hgb 32.2 pg (27.0-32.0); Mean Corpuscular Volume 106.1 fL (81-99); Mean Platelet Vol. 9.6 fl (6.2-12.0); Monocyte# 0.82 X10^3/uL; Monocyte% 8.9 % (0-10); NRBC Flagged by Analyzer 0 % (0-5); Neutrophil # 6.49 X10^3/uL (2.7-7.7); Neutrophil % 70.8 % (47-70); Platelet Count 241 K/mm3 (150-450); RBC Distribution Width CV 14.3 % (11.6-14.6); RBC Distribution Width SD 56.3 fl (35.1-43.9); Red Blood Count 4.29 M/mm3 (4.2-5.4); White Blood Count 9.2 K/mm3 (4.4-11.0)
[2024-08-18] MEDS: Albuterol 2.5 MG/3 ML VIAL.NEB. INHALATION ×3 (14:21)
[2024-08-18] MEDS: Ipratropium/Albuterol Sulfate 3 ML AMPUL.NEB INHALATION ×2 (14:21→19:05)
--- NOTE | 2024-08-18 14:32 | EDS_ITS ---
HPI History of Present Illness Chief Complaint: Shortness of Breath Detail of Chief Complaint: Patient presents with shortness of breath and nonproductive cough. Informant: patient Onset/Context/Timing Onset: Days Context: Gradual Onset Timing: Continuous and Waxes and wanes Quality: Difficulty breathing Location: Respiratory Current Severity: Mild (Improved after she was placed on oxygen. Her pulse ox on room air was 72%.) Maximum Severity: Severe Worsened by: Activity Relieved by: Nothing Associated Symptoms Associated Symptoms: Nonproductive cough Narrative Narrative: Patient is a 64-year-old woman. She has history of COPD. She states she has no refills on her inhalers. She has not used inhaler in several days. She also reports that her blood pressure medication has and has not taken her blood pressure meds for several days. She denies fever, chills night sweats. Denies headache, visual, ocular auditory symptoms. She does endorse mild nasal congestion which she attributes to seasonal allergies. She denies sore throat. She has a cough. The cough is nonproductive. She denies chest pain. She denies history of VTE. Denies leg swelling welling that is worse than baseline, discoloration or pain in her legs. She denies pain with breathing. She denies GI symptoms other than mild diarrhea. She denies dysuria, frequency, urgency or hematuria Prior similar symptoms: Yes Recent Illness/Hospitalization: No PFSH [facility] Medical History Bipolar disorder Anxiety Depression GERD (gastroesophageal reflux disease) CPAP (continuous positive airway pressure) dependence Sleep apnea Smoker Asthma Migraines COPD (chronic obstructive pulmonary disease) HTN (hypertension) Home Medications ?Medication ?Instructions ?Recorded ?Last Taken ?Type lansoprazole 15 mg capsule,delayed 15 mg PO DAILY 11/1311/24/21 History release polyethylene glycol 3350 17 17 g PO BID PRN PRN Consti pation 11/24/21 Unknown History gram/dose oral powder (Miralax) albuterol sulfate 2.5 mg/3 mL 2.5 mg (3 mL) inhalation Q2H PRN 11/26/21 Unknown Rx (0.083 %) solution for nebulization PRN Dyspnea, wheez ing 2 weeks #180 mL guaifenesin 1,200 mg tablet, 1,200 mg PO BID 14 days # 28 tabs 08/14/22 Unknown Rx extended release 12 hr (Mucus Relief ER) ipratropium 0.5 mg-albuterol 3 mg 3 ml inhalation Q4HW A.RT COPD, 11/26/21 Unknown Rx (2.5 mg base)/3 mL nebulization exacerbation, hypoxia 2 weeks #180 soln mL nebulizer accessories #1 ea 11/26/21 Unknown Rx hydroxyzine HCl 25 mg tablet 25 mg PO QHS 05/18/22 Unk nown History meclizine 25 mg tablet 25 mg PO DAILY PRN dizziness 05/18/22 Unknown History lisinopril 10 mg tablet 10 mg PO DAILY 05/02/23 Unkn own History hydroxyzine pamoate 25 mg capsule 25 mg PO TID 4 Unknown History (Vistaril) potassium chloride 20 mEq 40 meq (2 x 20 mEq) PO BID # 40 tabs 06/26/24 Unknown Rx tablet,extended release(part/cryst) Allergy/AdvReac Type Severity Reaction Status Date / Time Sulfa (Sulfonamide Allergy Intermediate Other Verified 08/18/24 13:40 Antibiotics) Latex, Natural Rubber Allergy Rash Verified 08/18/24 13:40 nabumetone AdvReac Intermediate Other Verified 08/18/24 13:40 meloxicam AdvReac Mild Nausea Verified 08/18/24 13:40 Family History Mother Heart disease Father Heart disease Surgical History History of tonsillectomy H/O shoulder surgery History of cholecystectomy Social History household members: none Smoking Status: Light Smoker (<10/day) Tobacco: How many years used: 45 alcohol intake: former details: Reports prior heavy EtOH abuse, notes she does not drink routinely, vague. substance use type: does not use ROS ROS ED Constitutional Constitutional ED: Denies chills, fever(s), subjective or sweats Eyes Eyes: Denies blurry vision or change in vision ENT ENT ED: Reports rhinorrhea; Denies ear pain or sore throat Cardiovascular Cardiovascular: Denies chest pain, orthopnea, palpitations, paroxysmal nocturnal dyspnea or racing heartbeat Respiratory/Chest Respiratory/Chest: Reports cough, dyspnea, dyspnea on exertion and other Details: Patient states she has slept in a lazy boy for the past 7 years. ; Denies orthopnea, paroxysmal nocturnal dyspnea or sputum Gastrointestinal Gastrointestinal: Denies abdominal pain, constipation, diarrhea, melena, nausea or vomiting Genitourinary Genitourinary ED: Denies dysuria, hematuria or urinary frequency Musculoskeletal Musculoskeletal: Denies arthralgias or myalgias Integumentary Denies rash Neurologic Neurologic: Denies headache(s) or paresthesias Psychiatric Psychiatric: Denies anxiety or depression Endocrine Endocrinology: Denies cold intolerance or heat intolerance Hematologic/Lymphatic Hematologic/Lymphatic: Reports systems reviewed and no addt'l complaints, except as documented EXAM Physical Exam Const Vital Signs: 08/18/24 13:40 08/18/24 13:45 08/18/24 14:08 Temperature 97.2 F L Temperature Source Temporal Pulse Rate 99 91 Respiratory Rate 30 H 11 L Respiratory Effort Respiratory Depth Respiratory Pattern Blood Pressure 125/91 H 124/89 H Blood Pressure Mean 102 100 Pulse Ox 72 100 100 Oxygen Delivery Method Room Air Nasal Cannula Oxygen Flow Rate (L/min) 4 08/18/24 14:12 08/18/24 14:21 08/18/24 14:30 Temperature Temperature Source Pulse Rate 91 95 Respiratory Rate 16 18 Respiratory Effort Normal Non-Labored Respiratory Depth Normal Respiratory Pattern Normal Blood Pressure 135/94 H Blood Pressure Mean 107 Pulse Ox 98 Oxygen Delivery Method Nasal Cannula Oxygen Flow Rate (L/min) 4 08/18/24 15:00 08/18/24 15:00 08/18/24 15:30 Temperature Temperature Source Pulse Rate 91 14 L 91 Respiratory Rate 22 H 89 H 15 Respiratory Effort Respiratory Depth Respiratory Pattern Blood Pressure 130/88 H 121/99 H Blood Pressure Mean 102 106 Pulse Ox 100 99 99 Oxygen Delivery Method Room Air Nasal Cannula Oxygen Flow Rate (L/min) 08/18/24 15:53 08/18/24 15:55 08/18/24 15:59 Temperature 98 F Temperature Source Pulse Rate 88 Respiratory Rate 11 L Respiratory Effort Respiratory Depth Respiratory Pattern Blood Pressure 120/86 H Blood Pressure Mean 97 Pulse Ox 87 92 99 Oxygen Delivery Method Room Air Nasal Cannula Oxygen Flow Rate (L/min) 2 08/18/24 16:00 Temperature 98.3 F Temperature Source Oral Pulse Rate 88 Respiratory Rate 22 H Respiratory Effort Respiratory Depth Respiratory Pattern Blood Pressure 121/83 H Blood Pressure Mean 95 Pulse Ox 99 Oxygen Delivery Method Nasal Cannula Oxygen Flow Rate (L/min) 2 Positive well developed and cachectic Constitutional Narrative: Patient is cachectic. Able to see all of her ribs. She was hypoxic initially. General Appearance ED: well developed and cachectic; Negative for pallor Nutritional Appearance: cachectic HEENT Reports moist mucous membranes HEENT Narrative: Head is atraumatic, cephalic. Ears normal. TMs normal. Nares patent. Posterior pharynx unremarkable. Eyes PERRL and EOMs intact bilaterally General Eye ED: Negative for pale conjunctiva or scleral icterus Neck no lymphadenopathy, supple and no JVD Chest Wall palpation of chest normal; Negative for inspection of chest normal Resp No normal respiratory effort and clear to auscultation bilaterally Resp Narrative: Expiratory phase is prolonged. There is little to no movement of air. Auscultation: diminished lung sounds diffuse Cardio regular rate, regular rhythm, S1 normal heart sound, S2 normal heart sound and no murmurs GI normal to inspection, nondistended, normoactive bowel sounds, non-tender, non- distended and no masses; Negative for hepatosplenomegaly GI Narrative: There is no palpable Posanol mass. There is no abdominal bruit. Palpation: Negative for mass Back/Spine no CVA tenderness Extremity Extremity Narrative: Edema is chronic. There is no discoloration or asymmetry. There is no leg vein distention, palpable cords sounds on the disposition deep venous system. General Extremety ED: Yes edema General Extremity: edema Neuro oriented x3 and CN's II-XII intact bilaterally Sensorium / Orientation: alert Psych mental status grossly normal Skin no rashes or lesions noted, no wounds and skin turgor normal General Skin Exam: Negative for jaundice or pallor MDM MDM MDM Narrative Medical decision making narrative: Differential diagnosis is [place] COPD, pneumonia, pneumothorax, pulmonary embolus needs to be entertained if there is no improvement or explanation for her symptoms. Need to evaluate for anemia, renal function and electrolytes. ABG was obtained because patient was markedly hypoxic and concerned she may be retaining. Lab Data Attestation: I reviewed the patient's lab results. Lab results narrative: CBC is unremarkable. Indices are elevated. Comprehensive metabolic panel does slight elevation of glucose of 113 with a normal CO2 anion gap. BUN is normal. Creatinine is normal. Estimated GFR is 52. Lactate was normal at 1.9 Labs: Laboratory Results - last 24 hr 08/18/24 13:57 WBC 9.2 RBC 4.29 Hgb 13.8 Hct 45.5 MCV 106.1 H MCH 32.2 H MCHC 30.3 L RDW Std Deviation 56.3 H RDW Coeff of Sarah 14.3 Plt Count 241 MPV 9.6 Immature Gran % (Auto) 0.300 Neut % (Auto) 70.8 H Lymph % (Auto) 18.0 L [place] % (Auto) 8.9 Eos % (Auto) 0.9 Baso % (Auto) 1.1 H Absolute Neuts (auto) 6.5 Absolute Lymphs (auto) 1.65 Nucleated RBC % 0 Sodium 141 Potassium 3.2 L Chloride 97 L Carbon Dioxide 32.0 Anion Gap 12 BUN 11 Creatinine 1.17 Est GFR (MDRD) Non-Af 52 L BUN/Creatinine Ratio 9.7 L Glucose 113 H Lactic Acid 1.9 Calcium 8.8 Total Bilirubin 0.25 AST 30 ALT 7 Alkaline Phosphatase 59 Total Protein 6.1 Albumin 3.8 Globulin 2.3 Albumin/Globulin Ratio 1.6 ABG Data Attestation: I personally reviewed and interpreted this ABG as follows: Interpretation: ABG reveals pH 7.39, [id number], pO2 136, bicarb of 40.6 with base excess of +15.6. O2 sat is 98.9 which correlates with pulse ox. This represents chronic CO2 retention with metabolic compensation. ABG results: ABG 08/18/24 14:27 Specimen Type ART Sample Site R Radial pH 7.39 Bicarbonate Actual 40.6 H Total CO2 43 Base Excess 16 H O2 Saturation 99 O2 % 3.0 ABG pCO2 67.2 H* ABG pO2 136 H Jorge Luis Test Positive O2 Delivery Device Cannula Vent Mode Not entered Crit Call To/Read Back Yes Blood Gas Notified Whom jiang Blood Gas Notified Time 14:30:10 Radiography Chest X-Ray - ED: 2 View, Read by ED Physician (Independent reviewed interpreted by me is negative for any acute process. Patient has chronic changes with hyperaeration flattening of diaphragms. Cardiac silhouette and size normal. [place] is normal. Osseous structures reveal chronic changes without any acute findings.), No Acute Disease and Chronic Changes Diagnostic Testing: Clinical Impression(s) from Imaging Studies Chest X-Ray 05/06/25 14:09 IMPRESSION: Chronic lung changes and hyperinflation are seen, consistent with chronic lung disease. No focal infiltrate is noted. No pleural effusion or pneumothorax is seen. The cardiomediastinal silhouette is within the normal range, and without evidence of cardiomegaly. Multiple thoracic spine compression fractures are again seen, with slight interval worsening a mid to upper thoracic spine compression fracture noted. No significant subluxation is seen. [id number] degenerative changes otherwise noted at the visualized spine. Reading Location: [place] [address] Radiology report was noted. The thoracic spine compressions are old. With slight interval worsening. The lung findings were chronic. EKG Initial EKG: Attestation: I personally reviewed and interpreted this EKG as follows: Interpretation: Sinus Rhythm (Rate is 91. CT was 140 ms. Cures duration 64 ms. QT duration is 326 ms. [place] is to the right. Patient has decreased anterior forces and nonspecific ST-T wave changes noted in the anterior leads. There is no acute ischemic changes noted) Management Discussion w/another healthcare provider: Hospitalist (Case was discussed with Dr. Pozo. Full admit [facility].) Treatment and Re-Evaluation :: Patient's pulse ox on 3 L 99%. Oxygen was discontinued to see if she became hypoxic. Patient dropped to 85%. This is an improvement from 72%. Hospitalist was paged for admission. Discharge Plan Dx/Rx/DC Orders Clinical Impression: Acute exacerbation of chronic obstructive pulmonary disease, Tobacco dependence, Acute respiratory failure with hypoxia and hypercarbia, Drug noncompliance, Acute respiratory distress Disposition Disposition: Acute Care [facility]
[2024-08-18 14:33] LABS: Allen Test Positive; Base Excess 16 mmol/L (-2 to +2); Bicarbonate 40.6 mmol/L (22-26); Blood Gas Specimen Type ART; Mode Not entered; O2 Delivery Device Cannula; PO2 136 mmHG (75-100); SITE R Radial; SO2 99 % (95-99); Time Given 14:30:10; Total Carbon Dioxide 43 mmol/L; pCO2 67.2 mmHg (35-45); pH 7.39 (7.35-7.45)
[2024-08-18 14:56] LABS: Lactic Acid 1.9 mmol/L (0.0-2.0)
[2024-08-18 14:59] LABS: ALB/GLOB Ratio 1.6 RATIO (0.9-2.4); AST(SGOT) 30 U/L (<=31); Alanine Aminotransfer ALT/SGPT 7 U/L (<=34); Albumin, Serum 3.8 g/dL (3.4-4.8); Alkaline Phosphatase 59 U/L (35-104); Anion Gap 12 (5-15); BUN 11 mg/dL (4-19); BUN/Creat Ratio 9.7 RATIO (10-20); Calcium,Total 8.8 mg/dL (7.6-11.0); Chloride 97 mmol/L (98-108); Creatinine, Serum 1.17 mg/dL (0.70-1.20); EST Glomerular Filtration Rate 52 (>60); Globulin 2.3 g/dL (2.2-4.2); Glucose 113 mg/dL (70-99); Potassium 3.2 mmol/L (3.3-5.1); Protein, Total 6.1 g/dL (5.9-8.4); Sodium Level 141 mmol/L (133-145); Total Bilirubin 0.25 mg/dL (0.00-1.30)
[2024-08-18] MEDS: MethylPREDNISolone 125 MG/2 ML Vial 60 MG IV (16:40)
--- NOTE | 2024-08-18 16:55 | PCM.HP.STD ---
[facility] - General General Date of Service: 08/18/24 Chief Complaint: shortness of breath. [facility] Narrative SHYANN ENNIS, is a 64 F who presents with shortness of breath. Patient has been short of breath for months, ran out of her medications a while ago, has not notified her physicians nor sought any attention for this. Has been not wanting to leave the house and her elderly mother has been providing the patient food. The patient's mother apparently is a nurse who has advised the patient to come to the emergency room but patient is refused until today. Patient was more concerned about the swelling in her legs and just want to get started back on her home medications and go home. However while she was here, is noted that her pulse ox went down to 87% on room air. Because of her diminished breath sounds and her hypoxia, the hospital service was contacted for admission. During this encounter, the patient told me that she did not want to stay in the hospital despite being told numerous times by the ED physician that she is being admitted. I notified the ED physician who went back to talk to her and patient eventually agreed to staying here. [facility] Medical History Bipolar disorder Anxiety Depression GERD (gastroesophageal reflux disease) CPAP (continuous positive airway pressure) dependence Sleep apnea Smoker Asthma Migraines COPD (chronic obstructive pulmonary disease) HTN (hypertension) Home Medications ?Medication ?Instructions ?Recorded ?Last Taken ?Type polyethylene glycol 3350 17 17 g PO DAILY PRN Constipation 11/24/21 Unknown History gram/dose oral powder (Miralax) nebulizer accessories #1 ea 11/26/21 Unknown Rx hydroxyzine HCl 25 mg tablet 25 mg PO QHS PRN sleep 05/18/22 Unknown History meclizine 25 mg tablet 25 mg PO DAILY PRN dizziness 05/18/22 Unknown History acetaminophen 500 mg tablet 1,000 mg PO Q6H PRN pain 08/18/24 08/18/24 History albuterol sulfate 2.5 mg/3 mL 2.5 mg inhalation Q2H PRN Dyspnea, 08/18/24 Unknown History (0.083 %) solution for nebulization wheezing ipratropium 0.5 mg-albuterol 3 mg 3 ml inhalation Q4H PRN COPD, 08/18/24 Unknown History (2.5 mg base)/3 mL nebulization exacerbation, hypoxia soln lansoprazole 30 mg capsule,delayed 30 mg PO DAILY 08/18/24 Unknown History release lisinopril 20 mg tablet 20 mg PO DAILY 08/18/24 Unknown History Allergy/AdvReac Type Severity Reaction Status Date / Time Sulfa (Sulfonamide Allergy Intermediate Other Verified 08/18/24 13:40 Antibiotics) Latex, Natural Rubber Allergy Rash Verified 08/18/24 13:40 nabumetone AdvReac Intermediate Other Verified 08/18/24 13:40 meloxicam AdvReac Mild Nausea Verified 08/18/24 13:40 Family History Mother Heart disease Father Heart disease Surgical History History of tonsillectomy H/O shoulder surgery History of cholecystectomy Social History household members: none Smoking Status: Light Smoker (<10/day) Tobacco: How many years used: 45 alcohol intake: former details: Reports prior heavy EtOH abuse, notes she does not drink routinely, vague. substance use type: does not use ROS ROS Narrative Chest pain with deep respirations. No fever or chills. Has occasional intermittent diarrhea and constipation. All review of systems were negative except as mentioned above in the history of present illness and the other review of systems. Vital Signs Vital Signs Vital Signs: 08/18/24 13:40 08/18/24 13:45 08/18/24 14:08 Temperature 36.2 C L Temperature Source Temporal Pulse Rate 99 91 Respiratory Rate 30 H 11 L Respiratory Effort Respiratory Depth Respiratory Pattern Blood Pressure 125/91 H 124/89 H Blood Pressure Mean 102 100 Pulse Ox 72 100 100 Oxygen Delivery Method Room Air Nasal Cannula Oxygen Flow Rate (L/min) 4 08/18/24 14:12 08/18/24 14:21 08/18/24 14:30 Temperature Temperature Source Pulse Rate 91 95 Respiratory Rate 16 18 Respiratory Effort Normal Non-Labored Respiratory Depth Normal Respiratory Pattern Normal Blood Pressure 135/94 H Blood Pressure Mean 107 Pulse Ox 98 Oxygen Delivery Method Nasal Cannula Oxygen Flow Rate (L/min) 4 08/18/24 15:00 08/18/24 15:00 08/18/24 15:30 Temperature Temperature Source Pulse Rate 91 14 L 91 Respiratory Rate 22 H 89 H 15 Respiratory Effort Respiratory Depth Respiratory Pattern Blood Pressure 130/88 H 121/99 H Blood Pressure Mean 102 106 Pulse Ox 100 99 99 Oxygen Delivery Method Room Air Nasal Cannula Oxygen Flow Rate (L/min) 08/18/24 15:53 08/18/24 15:55 08/18/24 15:59 Temperature 36.6 C Temperature Source Pulse Rate 88 Respiratory Rate 11 L Respiratory Effort Respiratory Depth Respiratory Pattern Blood Pressure 120/86 H Blood Pressure Mean 97 Pulse Ox 87 92 99 Oxygen Delivery Method Room Air Nasal Cannula Oxygen Flow Rate (L/min) 2 08/18/24 16:00 Temperature 36.8 C Temperature Source Oral Pulse Rate 88 Respiratory Rate 22 H Respiratory Effort Respiratory Depth Respiratory Pattern Blood Pressure 121/83 H Blood Pressure Mean 95 Pulse Ox 99 Oxygen Delivery Method Nasal Cannula Oxygen Flow Rate (L/min) 2 Weight Weight: 59.7 kg Body Mass Index (BMI) 21.2 Physical Exam Const alert and no apparent distress Constitutional Narrative: On oxygen. No respiratory distress. No conversational dyspnea. HEENT normocephalic and head/scalp atraumatic Resp normal respiratory effort and no retractions Resp Narrative: Diminished breath sounds throughout bilaterally. Cardio regular rate, regular rhythm, S1 normal heart sound and S2 normal heart sound GI normal to inspection, nondistended, normoactive bowel sounds, soft to palpation, non-tender and non-distended Extremity Extremity Narrative: Nonpitting lower extremity edema bilaterally. Subtle venous stasis changes in lower extremities. Skin Skin Narrative: Venous stasis changes in lower extremities. Neuro moves all extremities and no focal motor deficits Sensorium / Orientation: awake and alert Psych Psych Narrative: Flat affect. Results Lab / Micro Data Attestation: I reviewed the patient's lab results. 08/18/24 13:57 08/18/24 13:57 Labs: Laboratory Results - last 24 hr 08/18/24 13:57: WBC 9.2, RBC 4.29, Hgb 13.8, Hct 45.5, MCV 106.1 H, MCH 32.2 H, MCHC 30.3 L, RDW Std Deviation 56.3 H, RDW Coeff of Sarah 14.3, Plt Count 241, MPV 9.6, Immature Gran % (Auto) 0.300, Neut % (Auto) 70.8 H, Lymph % (Auto) 18.0 L, [place] % (Auto) 8.9, Eos % (Auto) 0.9, Baso % (Auto) 1.1 H, Absolute Neuts (auto) 6.5, Absolute Lymphs (auto) 1.65, Nucleated RBC % 0, Sodium 141, Potassium 3.2 L, Chloride 97 L, Carbon Dioxide 32.0, Anion Gap 12, BUN 11, Creatinine 1.17, Est GFR (MDRD) Non-Af 52 L, BUN/Creatinine Ratio 9.7 L, Glucose 113 H, Lactic Acid 1.9, Calcium 8.8, Total Bilirubin 0.25, AST 30, ALT 7, Alkaline Phosphatase 59, Total Protein 6.1, Albumin 3.8, Globulin 2.3, Albumin/Globulin Ratio 1.6 ABG Data ABG results: ABG 08/18/24 14:27 Specimen Type ART Sample Site R Radial pH 7.39 Bicarbonate Actual 40.6 H Total CO2 43 Base Excess 16 H O2 Saturation 99 O2 % 3.0 ABG pCO2 67.2 H* ABG pO2 136 H Jorge Luis Test Positive O2 Delivery Device Cannula Vent Mode Not entered Crit Call To/Read Back Yes Blood Gas Notified Whom jiang Blood Gas Notified Time 14:30:10 Imaging Radiology Impression Chest X-Ray 08/18/24 14:09 IMPRESSION: Chronic lung changes and hyperinflation are seen, consistent with chronic lung disease. No focal infiltrate is noted. No pleural effusion or pneumothorax is seen. The cardiomediastinal silhouette is within the normal range, and without evidence of cardiomegaly. Multiple thoracic spine compression fractures are again seen, with slight interval worsening a mid to upper thoracic spine compression fracture noted. No significant subluxation is seen. [id number] degenerative changes otherwise noted at the visualized spine. Reading Location: [place] [id number] Assessment & Plan Assessment/Plan (1) Acute exacerbation of chronic obstructive pulmonary disease: PLAN: Diminished throughout. Patient has been off her medications for an extended period of time. Patient received methylprednisolone as well as bronchodilators in the emergency room. Will continue with those on the floor. Check respiratory panels make sure is no other viral etiology contributing to this. Patient actually wants to leave AMA despite her being hypoxic. I told her that she would not be able to get oxygen directly arranged through the emergency room and that she would need to be admitted. She want to go in and the ED physician went back and talk to her so she is now agreeable to staying. Given her issues with compliance, if she does require oxygen at home I would be highly concerned that she may not use it being that she felt that she may not needed. Patient may be adapted to being hypoxic because she does not want to seek any kind of treatment and she would not come in here for the shortness of breath for notably for the lower extremity edema. When she is ready for discharge, she will require an ambulatory pulse ox. (2) Lower extremity edema: PLAN: Patient's albumin, despite her being very gaunt, and is actually expressing normal. Though patient did have an echocardiogram back in November 2017 where she did have some mild pulmonary hypertension at that time. I suspect she still does have pulm hypertension if not worse at this time. Likely group 3 pulmonary hypertension due to her COPD. I think also her edema is likely complicated by the fact that she spends much of her day in the lazy boy even though she states that she puts a pillow under her legs it is probably not completely flat. Will give her a dose of IV furosemide x 1. PLAN: Plan Hypertension: Stable continue lisinopril Medical noncompliance. Patient did a lot of vague statements and excuses as to why she had been out of her medications for months, and that she would backtrack saying that she actually wanted to get treatment but did not. Seems like this is primarily patient not wanting to follow through on her care. I tried to impress upon her that she is important part of her overall medical care but she did not seem to grasp onto anything that was relating in which is ready with a number of reasons why she would or would not do things. VTE prophylaxis with enoxaparin CODE STATUS: Addressed with patient. Patient wishes to be full code. Charges/Coding Visit Charges Inpatient E&M: 00173 Init Hosp L3
[2024-08-18] MEDS: Furosemide 20 MG/2 ML VIAL IV (17:48)
[2024-08-18] MEDS: 0.9% Saline Lock 10 ML Syringe IV ×2 (17:48→21:43)
[2024-08-18] MEDS: hydrOXYzine PAM 25 MG Capsule PO (21:39)
[2024-08-18] MEDS: Potassium Chloride Oral Tablet 20 MEQ 40 MEQ PO (21:39)
[2024-08-18] MEDS: guaiFENesin 1,200 MG Tablet 1200 MG PO (21:39)
[2024-08-19] VITALS (10 sets, daily range): BP systolic 92–141; BP diastolic 68–100; PULSE 89–105; RESP 16–20; TEMP 36.6–37.1; O2SAT 93–100
[2024-08-19] MEDS: Ipratropium/Albuterol Sulfate 3 ML AMPUL.NEB INHALATION ×6 (03:24→23:50)
[2024-08-19 06:01] LABS: Absolute Lymphocyte Count 0.24 X10^3/uL (0.83-4.51); Absolute Neutrophil Count 2.4 X10^3/uL (2.0-7.7); Hematocrit 45.5 % (37-47); Hemoglobin 13.6 g/dL (12.0-15.0); Lymphocyte # 0.24 X10^3/ul (0.83-4.51); Mean Corp Hgb Conc 29.9 g/dL (32-36); Mean Corpuscular Hgb 31.8 pg (27.0-32.0); Mean Corpuscular Volume 106.3 fL (81-99); Monocyte# 0.06 X10^3/uL; Monocyte% 2.2 % (0-10); NRBC Flagged by Analyzer 0 % (0-5); Neutrophil # 2.36 X10^3/uL (2.7-7.7); Neutrophil % 88.4 % (47-70); POSITIVE DIFFERENTIAL YES; Platelet Count 200 K/mm3 (150-450); RBC Distribution Width CV 14.4 % (11.6-14.6); RBC Distribution Width SD 56.6 fl (35.1-43.9); Red Blood Count 4.28 M/mm3 (4.2-5.4); White Blood Count 2.7 K/mm3 (4.4-11.0)
[2024-08-19 06:02] LABS: Differential Indicated SCAN CRITERIA MET
[2024-08-19 06:29] LABS: Anion Gap 9 (5-15); BUN 11 mg/dL (4-19); BUN/Creat Ratio 11.5 RATIO (10-20); Calcium,Total 8.6 mg/dL (7.6-11.0); Chloride 97 mmol/L (98-108); Creatinine, Serum 0.91 mg/dL (0.70-1.20); EST Glomerular Filtration Rate 70 (>60); Estimated Creatinine Clearance 55.37 ml/min (50-250); Glucose 157 mg/dL (70-99); Potassium 4.1 mmol/L (3.3-5.1); Sodium Level 141 mmol/L (133-145)
[2024-08-19] MEDS: Lansoprazole 15 MG Capsule.DR PO (06:34)
[2024-08-19] MEDS: 0.9% Saline Lock 10 ML Syringe IV ×3 (06:36→21:08)
[2024-08-19 06:41] LABS: Differential Comment SCANNED; Platelet Estimate ADEQUATE (ADEQ); Red Cell Morphology NORM C+C NORMAL (NORM C&C)
--- NOTE | 2024-08-19 07:49 | VDLE_ITS ---
Reason For Study Reason For Study: BLE Swelling RIGHT LEFT GSV is normal. GSV is normal. CFV is compressible, spontaneous, phasic, competent CFV is compressible, spontaneous, phasic, competent, and demonstrates normal augmentation. and demonstrates normal augmentation. FV is compressible, spontaneous, phasic, competent FV is compressible, spontaneous, phasic, competent and demonstrates normal augmentation. and demonstrates normal augmentation. POP V is compressible, spontaneous, phasic, competent POP V is compressible, spontaneous, phasic, competent and demonstrates normal augmentation. and demonstrates normal augmentation. T/P Trunk is compressible. T/P Trunk is compressible. PTV is compressible. PTV is compressible. RT PerV is compressible. LT PerV is compressible. Procedure This is a venous duplex using B-mode, color flow and spectral Doppler. Exam performed portable in patient room. The exam was diagnostic. A preliminary report was called and/or faxed to M/S 3 cvt tech. VL/Venous Duplex US - Leon Extrem Interpretation Summary Deep veins of the bilateral lower extremities are patent and compressible segme ntally. There is no evidence of bilateral lower extremity deep vein thrombosis. The bilateral great saphenous veins appea r patent and compressible segmentally. Ordering Physician: Miriam Gloria Referring Physician: Jose Carlos Lang Performed By: Edvin Baumann RVT
--- NOTE | 2024-08-19 07:50 | ECHOD_ITS ---
Reason For Study Reason For Study: EDEMA Procedure This was a 2D Doppler, Color Flow transthoracic echocardiogram. The study was technically difficult. Exam performed portable in patient room. Left Ventricle Normal size and thickness. Left ventricular systolic function is hyperdynamic. The left ventricular ejection fraction is 70 %. Unable to assess diastolic function based on available data. Right Ventricle Mildly dilated right ventricle with mild systolic dysfunction. Atria Normal left atrium. Possible right atrial calcified mass. Recommend OFELIA for further evaluation. Mitral Valve Trivial mitral valve insufficiency. Tricuspid Valve Trivial tricuspid valve insufficiency. Right ventricular systolic pressure estimated to be 55 mmHg. Aortic Valve Trisinus/trileaflet aortic valve. Pulmonic Valve The pulmonic valve is not well visualized. Great Vessels Normal sized aortic root. Pericardium/Pleural No pericardial effusion. MMode/2D Measurements & Calculations LVIDd: 3.2 cm IVSd: 0.72 cm Ao root diam: 3.0 cm LVIDs: 2.0 cm LVPWd: 0.87 cm RVDd: 3.2 cm FS: 36.9 % LAV(MOD-sp4): 18.6 ml LVAd ap4: 13.8 cm2 SV(MOD-sp4): 15.7 ml LVLd ap4: 6.3 cm SI(MOD-sp4): 9.6 ml/m2 EDV(MOD-sp4): 24.6 ml EDV(sp4-el): 25.7 ml LVAs ap4: 6.6 cm2 LVLs ap4: 4.4 cm ESV(MOD-sp4): 8.9 ml ESV(sp4-el): 8.4 ml EF(MOD-sp4): 63.9 % EF(sp4-el): 67.1 % SV(sp4-el): 17.2 ml LA A4 area: 9.7 cm2 LA dimension(2D): 2.4 cm RA A4 area: 17.0 cm2 TAPSE: 1.9 cm Time Measurements MV dec time: 0.23 sec Doppler Measurements & Calculations MV A max domenic: 69.4 cm/sec Lat Peak E' Domenic: 13.3 cm/sec Med Peak E' Domenic: 9.8 cm/sec Ao V2 max: 139.3 cm/sec LV V1 max: 123.3 cm/sec PA V2 max: 126.8 cm/sec Ao max P.8 mmHg LV V1 max P.1 mmHg TR max domenic: 314.5 cm/sec TR max P.6 mmHg ECHO/Echo Complete Interpretation Summary Left ventricular systolic function is hyperdynamic. The left ventricular ejection fraction is 70 %. Mildly dilated right ventricle with mild systolic dysfunction. Possible right atrial calcified mass. Recommend OFELIA for further evaluation. Ordering Physician: Miriam Gloria Referring Physician: MIRNA JONES Performed By: Gabby Leary RDCS
--- NOTE | 2024-08-19 07:55 | PCM.PN.HOSP ---
Reason for Visit Reason for Visit: Shortness of breath Subjective Subjective Patient states that she still remains short of breath. States she was in the hospital a long time ago and we were able to fix her then. States her lower extremities were edematous at that time as well. Edema has returned. Has been noncompliant with her home medications and has not followed up. States she has seen Dr. Gillian Rudolph previously but does not have any of her home inhalers. Does continue to smoke about 2 to 3 cigarettes daily. Objective Data Objective Data Vital Signs: Vital Signs Temp Pulse Resp BP Pulse Ox O2 Del Method O2 Flow Rate 98.5 F 99 18 121/96 H 93 Nasal Cannula 3 08/19/24 03:30 08/19/24 07:05 08/19/24 07:05 08/19/24 03:30 08/19/24 07:05 08/19/24 07:05 08/19/24 07:05 Oxygen Flow Rate (L/min) 3 Oxygen Delivery Method Nasal Cannula Weight: 56.155 kg Body Mass Index (BMI) 20.0 Lab / Micro Data 08/19/24 05:40 08/19/24 05:40 Labs: Laboratory Results - last 24 hr 08/18/24 13:57: WBC 9.2, RBC 4.29, Hgb 13.8, Hct 45.5, MCV 106.1 H, MCH 32.2 H, MCHC 30.3 L, RDW Std Deviation 56.3 H, RDW Coeff of Sarah 14.3, Plt Count 241, MPV 9.6, Immature Gran % (Auto) 0.300, Neut % (Auto) 70.8 H, Lymph % (Auto) 18.0 L, Moody % (Auto) 8.9, Eos % (Auto) 0.9, Baso % (Auto) 1.1 H, Absolute Neuts (auto) 6.5, Absolute Lymphs (auto) 1.65, Nucleated RBC % 0, Sodium 141, Potassium 3.2 L, Chloride 97 L, Carbon Dioxide 32.0, Anion Gap 12, BUN 11, Creatinine 1.17, Est GFR (MDRD) Non-Af 52 L, BUN/Creatinine Ratio 9.7 L, Glucose 113 H, Lactic Acid 1.9, Calcium 8.8, Total Bilirubin 0.25, AST 30, ALT 7, Alkaline Phosphatase 59, Total Protein 6.1, Albumin 3.8, Globulin 2.3, Albumin/Globulin Ratio 1.6 08/19/24 05:40: WBC 2.7 L, RBC 4.28, Hgb 13.6, Hct 45.5, MCV 106.3 H, MCH 31.8, MCHC 29.9 L, RDW Std Deviation 56.6 H, RDW Coeff of Sarah 14.4, Plt Count 200, MPV 9.0, Immature Gran % (Auto) 0.400, Neut % (Auto) 88.4 H, Lymph % (Auto) 9.0 L, Moody % (Auto) 2.2, Eos % (Auto) 0.0, Baso % (Auto) 0.0, Absolute Neuts (auto) 2.4, Absolute Lymphs (auto) 0.24 L, Nucleated RBC % 0, Differential Comment SCANNED, Platelet Estimate ADEQUATE, RBC Morphology NORM C+C, Sodium 141, Potassium 4.1, Chloride 97 L, Carbon Dioxide 35.0 H, Anion Gap 9, BUN 11, Creatinine 0.91, Estim Creat Clear Calc 55.37, Est GFR (MDRD) Non-Af 70, BUN/Creatinine Ratio 11.5, Glucose 157 H, Calcium 8.6 Micro: Microbiology 08/18/24 16:25 Mucosa - Other Respiratory Panel (PCR) - Final ABG Data ABG results: ABG 08/18/24 14:27 Specimen Type ART Sample Site R Radial pH 7.39 Bicarbonate Actual 40.6 H Total CO2 43 Base Excess 16 H O2 Saturation 99 O2 % 3.0 ABG pCO2 67.2 H* ABG pO2 136 H Jorge Luis Test Positive O2 Delivery Device Cannula Vent Mode Not entered Crit Call To/Read Back Yes Blood Gas Notified Whom jiang Blood Gas Notified Time 14:30:10 Radiography Diagnostic Testing: Radiology Impression Chest X-Ray 08/18/24 14:09 IMPRESSION: Chronic lung changes and hyperinflation are seen, consistent with chronic lung disease. No focal infiltrate is noted. No pleural effusion or pneumothorax is seen. The cardiomediastinal silhouette is within the normal range, and without evidence of cardiomegaly. Multiple thoracic spine compression fractures are again seen, with slight interval worsening a mid to upper thoracic spine compression fracture noted. No significant subluxation is seen. Gaqo-fq-troiqdqe degenerative changes otherwise noted at the visualized spine. Reading Location: [place] [id number] Physical Exam Const alert, oriented x3 and no apparent distress; Negative for average body habitus, healthy appearing or well nourished Constitutional Narrative: Thin, upper middle-aged, white female, sitting up in bed, appears much older than stated age, pleasant, interacts appropriately, does not appear toxic and currently looks comfortable HEENT head/scalp atraumatic and moist oral mucous membranes HEENT Narrative: Edentulous, Mallampati is 1, no thrush Eyes conjunctivae normal Eyes Narrative: No scleral icterus Neck supple Neck Narrative: Trachea midline Resp normal respiratory effort, no retractions, no use of accessory muscles and clear to auscultation bilaterally Resp Narrative: Severely diminished diffusely but no adventitious sounds noted, appears comfortable on 2 L nasal cannula Auscultation: Negative for rales, rhonchi or wheezes Cardio regular rate, regular rhythm, S1 normal heart sound, S2 normal heart sound, no murmurs, no rub, no gallops and no clicks GI normal to inspection, nondistended, normoactive bowel sounds, soft to palpation and non-tender Extremity Extremity Narrative: No cyanosis or clubbing, bilateral lower extremity pitting edema 2+ Skin no jaundice, no petechiae and no mottling Skin Narrative: Chronic venous stasis changes noted bilateral lower extremities Neuro oriented x3, moves all extremities and no focal motor deficits Speech: speech normal Psych affect normal Psych Narrative: Eye contact is good and patient interacts appropriately Assessment & Plan Assessment/Plan (1) Lower extremity edema: (2) Drug noncompliance: (3) Hypoxia: (4) Chronic hypercapnic respiratory failure: (5) Hypokalemia: PLAN: Plan Acute hypoxia and shortness of breath secondary to acute exacerbation of COPD/acute on chronic HFpEF - Continue oxygen at 2 L and wean as able - Will need ambulatory pulse ox prior to discharge - Continue aggressive pulmonary toilet with scheduled as needed nebulizers - Continue I-S and Acapella -Continue Solu-Medrol 40 every 8 - With marked lower extremity edema we will check echocardiogram and BNP - If BNP elevated will initiate diuretics and institute heart failure protocol - Will need close outpatient follow-up with her continuous miner operator Dr. Gillian Rudolph--> I will give her 1 month supply of her inhalers at discharge - COVID/flu/RSV are negative - Respiratory viral panel is unremarkable Bilateral lower extremity pitting edema - Check echocardiogram - Check BNP - Check lower extremity Dopplers Hypokalemia - Potassium was replaced - Resolved - will follow if diuretics are needed COPD - Has not been using her inhalers - Will write 4-month supply at discharge - Needs to follow-up with her primary continuous miner operator Dr. 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
[2024-08-19] MEDS: Potassium Chloride Oral Tablet 20 MEQ 40 MEQ PO ×2 (08:32→17:43)
[2024-08-19] MEDS: guaiFENesin 1,200 MG Tablet 1200 MG PO ×2 (08:32→21:06)
[2024-08-19] MEDS: Lisinopril 10 MG Tablet PO (08:32)
[2024-08-19] MEDS: Enoxaparin 40 MG/0.4 ML Syringe SC (08:32)
[2024-08-19 08:36] LABS: Pro- Brain NATRIURETIC PEPTIDE 10483 pg/mL (<=900)
[2024-08-19] MEDS: hydrOXYzine PAM 25 MG Capsule PO (10:45)
--- NOTE | 2024-08-19 13:37 | CASEMGMT ---
Addendum entered by Virgen Nicole 08/19/24 14:54: Pt states that she smokes 1-2 cigarettes per day, she used to drink heavy but not now and not daily. Then pt stated she does drink a couple of glasses of wine a night to help her relax. Pt states she does not use street drugs or illegal drugs but is inquiring if marijuana may help her pain. Pt to discuss with physician. Original Note: ELIN FERNÁNDEZ Assessment: Face to Face with pt for initial transition planning/care coordination assessment. ELIN FERNÁNDEZ introduced self and role at [facility] [place], pt voices understanding and consents to assessment. Pt is A&O x4 and answers all questions appropriately at this time. Pt sitting up in bed in no distress with oxygen on. Care providers, pharmacy, and demographics verified/updated. Admitting Dx: AE COPD Strata Score: 2 PCP:Precious Specialists:kayla Lancaster; kayla Foley Preferred Pharmacy: [facility] Insurance: [facility] Prescription Benefit: yes LNOK: Ernestina Nice, mother Living Arrangements: Pt lives alone in a single story home with a threshhold to enter. Pt reports she has been having difficulty bathing self for the last few mos d/t being ill. She states her mother has offered to help her bathe but she does not want anyone in her home to do this. Pt states she prepares her own small easy meals. She states she has thought about geting meals from the [employer] but hasn't yet. She is open to resources for this. Pt states her mother does the laundry and she gets her own groceries. Pt denies concerns at home. Transportation: Pt can drive but states her car needs repaired. Pt is interested to see if there are any programs that can assist with this. DME:portable oxygen tanks, CPAP, O2 concentrator- Pt states she doesn't use her CPAP anymore and her concentrator is broken. She states that her equipment is from [employer] but she does not want them to come fix it as she doesn't wear oxygen and she feels that the [employer] van is too flashy. She does not want her neighbors to know what is going on at her home. Email to [employer] liaison to confirm if pt currently has an oxygen rx. Pt also has a cane. HHC/SNF: Denies hx Pt states no concerns with going home at time of dc. Pt would possibly be open to having [employer] for oxygen again should she need it but prefers they deliver it Saturday after 5pm as her neighborhood is not as busy then. Made pt aware that this may not be a possibility pending day of dc and needs. She is aware that should she need oxyen, she and RNCM will discuss again. Pt states no further concerns/needs. CM to follow. Advised pt to ask CM if any further questions/concerns/needs arise, voices understanding. Pt Goal: Home Plan: Home follow for oxygen Angy [place] CM
[2024-08-19] MEDS: Furosemide 40 MG/4 ML Vial IV ×2 (14:47→21:07)
--- NOTE | 2024-08-19 14:55 | ECHOTEE_ITS ---
Reason For Study Reason For Study: abn tte Medication OFELIA probe 6VT-D (SN [id number]) passed without difficulty. No complications were noted. Cetacaine Topical [place] given X3 orally. Fentanyl 50 mcg given slow IVP. Versed 14 mg given slow IVP. Performed a rapid injection of agitated mix of 9 cc saline and 1cc air to assess for atrial septal defect. Left Ventricle Normal LV size. Left ventricular systolic function is normal. The left ventricular ejection fraction is 65 %. No regional wall motion abnormalities noted. Right Ventricle Normal RV size. Normal systolic function. Atria Bubble contrast study is negative for PFO/ASD. Normal left atrium. Normal right atrium. Prominent eustachian valve is noted and thickened. Mitral Valve Normal mitral valve. Tricuspid Valve Normal tricuspid valve. Aortic Valve Normal aortic valve. Trisinus/trileaflet aortic valve. Pulmonic Valve Normal pulmonic valve. Vessels Normal sized aortic root. Normal arch. The pulmonary artery is normal size. Pulmonary venous flow normal. Pericardium No pericardial effusion. ECHO/Echo Transesophageal (OFELIA) Interpretation Summary Normal LV size. Left ventricular systolic function is normal. The left ventricular ejection fraction is 65 %. Bubble contrast study is negative for PFO/ASD. Prominent eustachian valve is noted and thickened- normal variant Ordering Physician: Miriam Gloria Referring Physician: jaime bird Performed By: Justine Chopra RDCS
[2024-08-20] VITALS (13 sets, daily range): BP systolic 103–129; BP diastolic 69–93; PULSE 87–105; RESP 16–20; TEMP 36.3–37.1; O2SAT 85–98
[2024-08-20] MEDS: Ipratropium/Albuterol Sulfate 3 ML AMPUL.NEB INHALATION ×4 (03:15→14:23)
[2024-08-20 05:38] LABS: Absolute Lymphocyte Count 0.26 X10^3/uL (0.83-4.51); Basophil# 0.01 X10^3/uL; Basophil% 0.1 % (0-1); Hematocrit 43.2 % (37-47); Hemoglobin 12.9 g/dL (12.0-15.0); Lymphocyte # 0.26 X10^3/ul (0.83-4.51); Lymphocyte % 3.4 % (19-41); Mean Corp Hgb Conc 29.9 g/dL (32-36); Mean Corpuscular Hgb 31.6 pg (27.0-32.0); Mean Corpuscular Volume 105.9 fL (81-99); Mean Platelet Vol. 9.4 fl (6.2-12.0); Monocyte# 0.32 X10^3/uL; Monocyte% 4.2 % (0-10); NRBC Flagged by Analyzer 0 % (0-5); Neutrophil # 7.01 X10^3/uL (2.7-7.7); Neutrophil % 91.6 % (47-70); POSITIVE DIFFERENTIAL YES; Platelet Count 226 K/mm3 (150-450); RBC Distribution Width CV 14.5 % (11.6-14.6); Red Blood Count 4.08 M/mm3 (4.2-5.4); White Blood Count 7.7 K/mm3 (4.4-11.0)
[2024-08-20] MEDS: Furosemide 40 MG/4 ML Vial IV (05:52)
[2024-08-20 06:00] LABS: ALB/GLOB Ratio 1.8 RATIO (0.9-2.4); AST(SGOT) 25 U/L (<=31); Alanine Aminotransfer ALT/SGPT 7 U/L (<=34); Albumin, Serum 3.7 g/dL (3.4-4.8); Alkaline Phosphatase 54 U/L (35-104); Anion Gap 6 (5-15); BUN 19 mg/dL (4-19); BUN/Creat Ratio 16.7 RATIO (10-20); Calcium,Total 8.9 mg/dL (7.6-11.0); Chloride 95 mmol/L (98-108); Creatinine, Serum 1.14 mg/dL (0.70-1.20); EST Glomerular Filtration Rate 54 (>60); Globulin 2.1 g/dL (2.2-4.2); Glucose 130 mg/dL (70-99); Phosphorus 3.6 mg/dL (2.7-4.5); Potassium 4.6 mmol/L (3.3-5.1); Protein, Total 5.8 g/dL (5.9-8.4); Sodium Level 142 mmol/L (133-145); Total Bilirubin 0.18 mg/dL (0.00-1.30)
--- NOTE | 2024-08-20 08:11 | PCM.PN.HOSP ---
Reason for Visit Reason for Visit: Shortness of breath Subjective Subjective Patient still has some swelling but seems to be better. Complaining of some abdominal distention lower abdomen has been an ongoing issue for a while. States he is passing flatus and has bowel movements but has had some constipation issues. I told her we will check CT of her abdomen pelvis. Awaiting OFELIA Objective Data Objective Data Vital Signs: Vital Signs Temp Pulse Resp BP Pulse Ox O2 Del Method O2 Flow Rate 98.8 F 95 20 H 108/85 H 93 Nasal Cannula 4 08/20/24 05:49 08/20/24 06:46 08/20/24 06:46 08/20/24 05:49 08/20/24 06:46 08/20/24 06:46 08/20/24 06:46 Oxygen Flow Rate (L/min) 4 Oxygen Delivery Method Nasal Cannula Weight: 56.155 kg Body Mass Index (BMI) 20.0 Intake & Output: Intake and Output for Last 24 Hours 08/18/24 08/19/24 08/20/24 23:59 23:59 23:59 Intake Total 400 / 400 Balance 400 / 400 Lab / Micro Data 08/20/24 05:26 08/20/24 05:26 Labs: Laboratory Results - last 24 hr 08/19/24 05:40: [place] [id number] H 08/20/24 05:26: WBC 7.7, RBC 4.08 L, Hgb 12.9, Hct 43.2, MCV 105.9 H, MCH 31.6, MCHC 29.9 L, RDW Std Deviation 58.0 H, RDW Coeff of Sarah 14.5, Plt Count 226, MPV 9.4, Immature Gran % (Auto) 0.700, Neut % (Auto) 91.6 H, Lymph % (Auto) 3.4 L, [place] % (Auto) 4.2, Eos % (Auto) 0.0, Baso % (Auto) 0.1, Absolute Neuts (auto) 7.0, Absolute Lymphs (auto) 0.26 L, Nucleated RBC % 0, Sodium 142, Potassium 4.6, Chloride 95 L, Carbon Dioxide 41.0 H, Anion Gap 6, BUN 19, Creatinine 1.14, Estim Creat Clear Calc 44.20 L, Est GFR (MDRD) Non-Af 54 L, BUN/Creatinine Ratio 16.7, Glucose 130 H, Calcium 8.9, Phosphorus 3.6, Magnesium 2.0, Total Bilirubin 0.18, AST 25, ALT 7, Alkaline Phosphatase 54, Total Protein 5.8 L, Albumin 3.7, Globulin 2.1 L, Albumin/Globulin Ratio 1.8 Micro: Microbiology 08/19/24 08:10 Mucosa - Nose SARS-CoV-2, Influenza & RSV (PCR) - Final 08/18/24 16:25 Mucosa - Other Respiratory Panel (PCR) - Final Radiography Diagnostic Testing: Radiology Impression Venous Doppler Study 08/19/24 07:49 Interpretation Summary Deep veins of the bilateral lower extremities are patent and compressible segmentally. There is no evidence of bilateral lower extremity deep vein thrombosis. The bilateral great saphenous veins appear patent and compressible segmentally. Ordering Physician: Miriam Gloria Referring Physician: Mirna Jones Performed By: Edvin Baumann, RVNadja Echocardiogram 08/19/24 07:50 Interpretation Summary Left ventricular systolic function is hyperdynamic. The left ventricular ejection fraction is 70 %. Mildly dilated right ventricle with mild systolic dysfunction. Possible right atrial calcified mass. Recommend OFELIA for further evaluation. Ordering Physician: Miriam Gloria Referring Physician: MIRNA JONES Performed By: Gabby Leary, BERNARD Physical Exam Const alert, oriented x3 and no apparent distress; Negative for average body habitus, healthy appearing or well nourished Constitutional Narrative: Thin, upper middle-aged, white female, sitting up in bed, appears much older than stated age, pleasant, interacts appropriately, does not appear toxic and currently looks comfortable HEENT normocephalic, head/scalp atraumatic and moist oral mucous membranes HEENT Narrative: Dentition is poor, Mallampati is 1, no thrush Eyes conjunctivae normal Resp normal respiratory effort, no retractions, no use of accessory muscles and clear to auscultation bilaterally Resp Narrative: Severely diminished diffusely but no adventitious sounds noted, appears comfortable on 2 L nasal cannula Auscultation: Negative for rales, rhonchi or wheezes Cardio regular rate, regular rhythm, S1 normal heart sound, S2 normal heart sound, no murmurs, no rub, no gallops and no clicks GI normal to inspection, nondistended, normoactive bowel sounds, soft to palpation and non-tender Extremity Extremity Narrative: No cyanosis or clubbing, bilateral lower extremity pitting edema 2+ Neuro oriented x3, moves all extremities and no focal motor deficits Speech: speech normal Psych affect normal Psych Narrative: Eye contact is good and patient interacts appropriately Assessment & Plan Assessment/Plan (1) Lower extremity edema: (2) Drug noncompliance: (3) Hypoxia: (4) Chronic hypercapnic respiratory failure: (5) Hypokalemia: (6) Abdominal distention: PLAN: Plan Acute hypoxia and shortness of breath secondary to acute exacerbation of COPD/acute on chronic HFpEF - Continue oxygen at 2 L and wean as able - Will need ambulatory pulse ox prior to discharge - Continue aggressive pulmonary toilet with scheduled as needed nebulizers - Continue I-S and Acapella -Continue Solu-Medrol 40 every 8 -BNP was elevated and patient was started on IV Lasix 3 times daily -Diuresed well will discontinue and transition to oral Lasix 40 p.o. twice daily and 1 dose of Diamox 500 mg - Will need close outpatient follow-up with her photoradio operator Dr. Gillian Rudolph--> I will give her 1 month supply of her inhalers at discharge Bilateral lower extremity pitting edema - suspect multifactorial with poor nutritional status, Heart failure, decreased mobility -Echocardiogram showed an EF of 70% with a mildly dilated RV and a right ventricular systolic pressure of 55 mmHg. - BNP is elevated -Dopplers are negative for DVT Possible right atrial calcified mass - Identified on TTE yesterday -OFELIA done today and it was not identified - Suspect artifact Hypokalemia -Resolved Abdominal distention - Ongoing issue - Check CT of the abdomen pelvis - Will start MiraLAX p.o. twice daily COPD - Has not been using her inhalers - Will write 4-month supply at discharge - Needs to follow-up with her primary photoradio operator Dr. 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 related to her tobacco abuse Tobacco abuse - Patient denies need for nicotine replacement - States she is only smoking 1 to 3 cigarettes daily - Recommend cessation - I did discuss with patient she would likely need to go home with oxygen supplementation she voiced understanding we did discuss that she would not be able to smoke on oxygen and why History of alcohol abuse - Patient rarely drinking currently however she told case management that she drinks 2 glasses of wine nightly and does not consider this alcohol DVT prophylaxis - Continue enoxaparin 40 daily CODE STATUS - Full code Charges/Coding Visit Charges Inpatient E&M: 22383 Subs Hosp L2
[2024-08-20] MEDS: AcetaZOLAMIDE 500 MG/10 ML Vial IV (09:20)
[2024-08-20] MEDS: Morphine 2 MG/ML Syringe IV (09:20)
[2024-08-20] MEDS: 0.9% Saline Lock 10 ML Syringe IV ×3 (09:20→20:23)
--- NOTE | 2024-08-20 09:56 | CT_ITS ---
PROCEDURE: CT ABDOMEN/PELVIS WITH CONTRAST 08/20/2024 REASON FOR EXAM: ABDOMINAL PAIN AND BLOATING TECHNIQUE: Contiguous axial scans of 3.75 mm slice thicknesses. Sagittal and coronal reconstruction images were obtained. One or more dose reduction techniques were used (e.g., automated exposure control, adjustment of mA and/or kv according to patient size, use of iterative reconstruction technique). PATIENT PREPARATION: Per protocol ORAL CONTRAST TYPE: Given. CONTRAST: Isovue-300 VOLUME: 75 mL RADIATION DOSE SUMMARY: DLP: 489.99 mGycm COMPARISON: 05/02/2023 FINDINGS: Lung bases: 8.6 noncalcified micronodule, left lower lobe, axial image 1. Centrilobular emphysematous changes. Liver: Normal in size and attenuation. Multiple hypodense nodules. No biliary ductal dilatation. Hypodense area in the caudate lobe measuring 1 point 3 cm, axial image 19. Findings of mild periportal edema. Gallbladder: Surgically absent. Prominent common bile duct. Spleen: Normal. Pancreas: Pancreatic atrophy. Adrenals: No nodules. No abnormal thickening. Kidneys: Excrete contrast material symmetrically. No cystic or solid masses. No nephrolithiasis. Bladder: Normal Reproductive Organs: Unremarkable. Small uterus. Bowel: Moderate fecal material in the colon. Appendix: Unremarkable. Lymph nodes: No lymphadenopathy. Vasculature: Aortoiliac moderate atherosclerotic calcific disease. Peritoneum / Retroperitoneum: No free air. No free fluid. No masses. Anterior abdominal wall: Unremarkable. Bones: Multiple vertebral body compression abnormalities. L3 compression has developed since the previous study. CT/Abdomen/Pelvis WITH Contrast IMPRESSION: 1. Multiple hepatic cysts. 2. New area of hypodensity in the region of the caudate lobe. Can not exclude hemangioma. 3. Periportal edema, although nonspecific may be seen in inflammation. 4. Moderate fecal content in the colon. 5. Multiple vertebral body compression abnormalities. Reading Location: [place]
--- NOTE | 2024-08-20 10:22 | CASEMGMT ---
Social Work SW met with pt and provided information regarding [facility] car repair program, home delivered meals, [facility] and [facility]. Pt appreciative of information and denies any further needs. RUMA Kahn
--- NOTE | 2024-08-20 11:47 | CASEMGMT ---
Received response back from [facility] [place] that pt is not currently active with any oxygen at this time.
[2024-08-20] MEDS: Enoxaparin 40 MG/0.4 ML Syringe SC (13:27)
[2024-08-20] MEDS: hydrOXYzine PAM 25 MG Capsule PO (18:10)
[2024-08-20] MEDS: Furosemide 40 MG Tablet PO (18:10)
[2024-08-20] MEDS: guaiFENesin 1,200 MG Tablet 1200 MG PO (20:22)
[2024-08-20] MEDS: Polyethylene Glycol 3350 17 GM PACKET PO (20:23)
[2024-08-21] VITALS (7 sets, daily range): BP systolic 107–129; BP diastolic 77–95; PULSE 96–110; RESP 18–20; TEMP 36.6–37; O2SAT 81–99
[2024-08-21] MEDS: Ipratropium/Albuterol Sulfate 3 ML AMPUL.NEB INHALATION ×3 (03:50→11:22)
[2024-08-21] MEDS: Lansoprazole 15 MG Capsule.DR 30 MG PO (06:23)
[2024-08-21 07:08] LABS: Absolute Lymphocyte Count 0.36 X10^3/uL (0.83-4.51); Absolute Neutrophil Count 8.6 X10^3/uL (2.0-7.7); Hematocrit 44.5 % (37-47); Hemoglobin 13.3 g/dL (12.0-15.0); Lymphocyte # 0.36 X10^3/ul (0.83-4.51); Lymphocyte % 3.8 % (19-41); Mean Corp Hgb Conc 29.9 g/dL (32-36); Mean Corpuscular Volume 107.2 fL (81-99); Mean Platelet Vol. 9.2 fl (6.2-12.0); Monocyte# 0.42 X10^3/uL; Monocyte% 4.5 % (0-10); NRBC Flagged by Analyzer 0 % (0-5); Neutrophil % 91.3 % (47-70); POSITIVE DIFFERENTIAL YES; Platelet Count 263 K/mm3 (150-450); RBC Distribution Width CV 14.4 % (11.6-14.6); RBC Distribution Width SD 57.3 fl (35.1-43.9); Red Blood Count 4.15 M/mm3 (4.2-5.4); White Blood Count 9.4 K/mm3 (4.4-11.0)
[2024-08-21 07:45] LABS: Anion Gap 8 (5-15); BUN 22 mg/dL (4-19); BUN/Creat Ratio 23.9 RATIO (10-20); Calcium,Total 8.9 mg/dL (7.6-11.0); Chloride 93 mmol/L (98-108); Creatinine, Serum 0.91 mg/dL (0.70-1.20); EST Glomerular Filtration Rate 70 (>60); Estimated Creatinine Clearance 55.37 ml/min (50-250); Glucose 138 mg/dL (70-99); Potassium 4.5 mmol/L (3.3-5.1); Sodium Level 139 mmol/L (133-145)
[2024-08-21] MEDS: Polyethylene Glycol 3350 17 GM PACKET PO (08:20)
[2024-08-21] MEDS: guaiFENesin 1,200 MG Tablet 1200 MG PO (08:20)
[2024-08-21] MEDS: Enoxaparin 40 MG/0.4 ML Syringe SC (08:20)
[2024-08-21] MEDS: Furosemide 40 MG Tablet PO (08:23)
[2024-08-21] MEDS: Acetaminophen 325 MG Tablet 650 MG PO (09:59)
[2024-08-21] MEDS: hydrOXYzine PAM 25 MG Capsule PO (09:59)
--- NOTE | 2024-08-21 10:54 | CASEMGMT ---
Addendum entered by Virgen Nicole 08/21/24 12:10: Pt nurse states pt would like a nebulizer. Order received and sent to [facility] at this time via [facility]. Original Note: RN CM into pt room to discuss oxygen. Pt is agreeable to [employer] coming. She does not want the concentrator but is educated on the need for it. Pt has a pox at home. Reviewed homegoing oxygen instruction. Pt declines HHC or any needs otherwise upon dc. Referral sent to [employer] via [facility] at this time.
--- NOTE | 2024-08-21 12:40 | CPS ---
Found patient with her nasal cannula under her chin and her SPO2 was 71%. Placed cannula back in her nose.
--- NOTE | 2024-08-21 14:12 | PCM.DC.SUM ---
Providers Date of Admission: 08/18/24 Date of Discharge: 08/21/24 Primary Care Physician: Dr. Jose Carlos Lang MD Reason For Visit: AECOPD Diagnosis Discharge Diagnosis (1) Lower extremity edema: Status: Acute Code(s): R60.0 - Localized edema (2) Drug noncompliance: Status: Acute Code(s): Z91.148 - Patient's other noncompliance with medication regimen for other reason (3) Hypoxia: Status: Acute Code(s): R09.02 - Hypoxemia (4) Chronic hypercapnic respiratory failure: Status: Chronic Code(s): J96.12 - Chronic respiratory failure with hypercapnia (5) Hypokalemia: Status: Acute Code(s): E87.6 - Hypokalemia (6) Abdominal distention: Status: Acute Code(s): R14.0 - Abdominal distension (gaseous) Plan Acute hypoxia and shortness of breath secondary to acute exacerbation of COPD/acute on chronic HFpEF - Continue oxygen at 2 L and wean as able - Will need ambulatory pulse ox prior to discharge - Continue aggressive pulmonary toilet with scheduled as needed nebulizers - Continue I-S and Acapella -Continue Solu-Medrol 40 every 8 -BNP was elevated and patient was started on IV Lasix 3 times daily -Diuresed well will discontinue and transition to oral Lasix 40 p.o. twice daily and 1 dose of Diamox 500 mg - Will need close outpatient follow-up with her senior web applications developer Dr. Gillian Rudolph--> I will give her 1 month supply of her inhalers at discharge Bilateral lower extremity pitting edema - suspect multifactorial with poor nutritional status, Heart failure, decreased mobility -Echocardiogram showed an EF of 70% with a mildly dilated RV and a right ventricular systolic pressure of 55 mmHg. - BNP is elevated -Dopplers are negative for DVT Possible right atrial calcified mass - Identified on TTE yesterday -OFELIA done today and it was not identified - Suspect artifact Hypokalemia -Resolved Abdominal distention - Ongoing issue - Check CT of the abdomen pelvis - Will start MiraLAX p.o. twice daily COPD - Has not been using her inhalers - Will write 4-month supply at discharge - Needs to follow-up with her primary senior web applications developer Dr. 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 related to her tobacco abuse Tobacco abuse - Patient denies need for nicotine replacement - States she is only smoking 1 to 3 cigarettes daily - Recommend cessation - I did discuss with patient she would likely need to go home with oxygen supplementation she voiced understanding we did discuss that she would not be able to smoke on oxygen and why History of alcohol abuse - Patient rarely drinking currently however she told case management that she drinks 2 glasses of wine nightly and does not consider this alcohol DVT prophylaxis - Continue enoxaparin 40 daily CODE STATUS - Full code Medications at Discharge Home Medications nebulizer accessories #1 ea 11/26/21 acetaminophen 500 mg tablet 1,000 mg PO Q6H PRN pain 08/18/24 albuterol sulfate 2.5 mg/3 mL (0.083 %) solution for nebulization 2.5 mg (3 mL) inhalation Q2H PRN Dyspnea, wheezing #75 mL 08/21/24 furosemide 40 mg tablet 40 mg PO BIDLX #28 tabs 08/21/24 hydroxyzine HCl 25 mg tablet 25 mg PO QHS PRN sleep #30 tabs 08/21/24 ipratropium 0.5 mg-albuterol 3 mg (2.5 mg base)/3 mL nebulization soln 3 ml inhalation Q4H PRN COPD, exacerbation, hypoxia #90 mL 08/21/24 lansoprazole 30 mg capsule,delayed release 30 mg PO DAILY #30 caps 08/21/24 metoprolol tartrate 25 mg tablet 12.5 mg (1/2 x 25 mg) PO BID #30 tabs 08/21/24 polyethylene glycol 3350 17 gram/dose oral powder (Miralax) 17 g PO BID Constipation #119 grams 08/21/24 prednisone 10 mg tablet 10 mg PO DAILY #30 tabs 08/21/24 Hospital Course Operations None Procedures 2-D Echocardiogram, EKG, Transesophageal Echo and - (Chest x-ray/CT abdomen and pelvis) Summary of Care Provided Minutes Spent on Discharge: 45 Hospital Course: Patient is a 64-year-old white female who presents emergency department at [facility] on 08/18/2024 with a chief complaint of shortness of breath. She reported she has been short of breath for months and follows with pulmonary medicine at [facility] following with Dr. Gillian Rudolph. She states she has not been to a doctor in some time and ran out of her medication a while ago. She had not contacted or made any appointments with any other physicians for this. She evidently had not been wanting to leave her house recently and her elderly mother has been providing care for her. The patient's mother is a previous nurse who advised the patient to come to the emergency department but the patient had refused until the day of admission. Patient was concerned about lower extremity edema that had been ongoing as well. She declined the need for oxygen initially in the emergency department and tried to leave AMA despite having oxygen saturations that were in the 80s. After admission she had multiple complaints including abdominal distention she complained of cyst being in her liver which was a chronic condition. There seems to be some social aspects and some medical noncompliance contributing to her admission. Vital signs at the time of presentation showed a temperature of 36.6, heart rate was 91, respiratory was 22, blood pressure was 130/88 and pulse ox was 100% on room air. Her CBC was overtly unremarkable. ABG was unremarkable other than elevated pCO2 at 67.2 however her pH was 7.39 so she has chronic type hypercapnic respiratory failure in addition to suspected chronic hypoxic respiratory failure that is not treated due to patient noncompliance. CBC showed mild hypokalemia with a potassium of 3.2. This was treated and resolved at the time of discharge. Her proBNP was 10,483. Chest x-ray done on admission showed multiple thoracic compression fractures that were stable when compared to previous and chronic lung changes consistent with hyperinflation and COPD. No acute abnormality was otherwise noted. Lower extremity Dopplers were negative for DVT. She complained of abdominal distention so we did obtain a CT of the abdomen pelvis which just showed constipation, multiple hepatic cysts which are chronic and a new area of hypodensity in the region of the caudate lobe which was suspicious for hemangioma. She will need outpatient follow-up with GI and this appointment was scheduled prior to discharge. With her BNP elevation, we did obtain an echocardiogram which was performed on 08/19/2024 and demonstrated an EF of 70% with a mildly dilated right ventricle and mild right ventricular systolic dysfunction and a possible calcified mass in the right atrium for which a OFELIA was recommended. Pulmonary hypertension was identified with a right ventricular systolic pressure of 55 mmHg prior OFELIA was performed on 08/20/2024 and was unremarkable for mass and negative for PFO. I highly suspect her pulmonary hypertension and lower extremity edema is related to chronic hypoxia for which she has been noncompliant wearing any oxygen. She still smokes. She was diuresed in addition to being treated for COPD exacerbation. We did assess her for respiratory viral infection all of which workup was negative. She clinically had been doing better and we did an ambulatory pulse ox. She will require 3 L of oxygen at rest and 4 L with exertion. We have arranged for oxygen to be set up for her. I have also strongly advised her to follow-up with her primary senior web applications developer as we do not have the capability to set up an appointment for her with regards to this as her primary senior web applications developer is including clinic. We have set up a GI follow-up with Dr. Rodriguez and she was given this appointment at discharge. We have also asked that she follow-up with her primary care physician within the next week. I did refill all of her home prescription for a 1 month supply. In addition to this we placed her on Lasix 40 mg p.o. twice daily for total of 2 weeks. I have asked that she follow-up with her primary care doctor to obtain lab as an outpatient within the next week. New prescriptions for this can be written after follow-up. She was also started on a prednisone taper and metoprolol 12.5 mg p.o. twice daily. For her constipation she was advised to take MiraLAX p.o. twice daily until she is having a daily bowel movement. At that time she can back off on the MiraLAX to daily and will need to follow-up again with GI for colonoscopy as an outpatient. We did review with the patient that she is not to smoke on oxygen and the sequelae that could occur if she does. Patient was discharged to home on 08/21/2024 in stable condition with home oxygen. I have reviewed the oxygen testing, and this patient qualifies for the home equipment and portability. The patient is mobile in the home and the community. Discharge diagnoses: Acute hypoxic on chronic hypercapnic respiratory failure Acute exacerbation of COPD Acute on chronic HFpEF Pulmonary hypertension Bilateral lower extremity edema Hypokalemia-resolved Acute on chronic constipation COPD GERD Essential hypertension Chronic anxiety VAIBHAV Severe malnutrition Ongoing tobacco abuse History of alcohol abuse Physical Exam Const alert, oriented x3 and no apparent distress; Negative for average body habitus, healthy appearing or well nourished Constitutional Narrative: Thin, upper middle-aged, white female, sitting up in bed, appears much older than stated age, pleasant, interacts appropriately, does not appear toxic and currently looks comfortable, nursing at bedside General Appearance: cooperative, comfortable, well kempt and well developed Exam Limitations: no limitations Nutritional Appearance: thin HEENT normocephalic, head/scalp atraumatic and moist oral mucous membranes HEENT Narrative: Edentulous, Mallampati is 2, no thrush Eyes conjunctivae normal Eyes Narrative: No scleral icterus Neck supple Neck Narrative: Trachea midline Resp normal respiratory effort, no retractions, no use of accessory muscles and clear to auscultation bilaterally Resp Narrative: Severely diminished diffusely Auscultation: Negative for rales, rhonchi or wheezes Cardio regular rate, regular rhythm, S1 normal heart sound, S2 normal heart sound, no murmurs, no rub, no gallops and no clicks GI normal to inspection, nondistended, normoactive bowel sounds, soft to palpation and non-tender Extremity Extremity Narrative: No cyanosis or clubbing, bilateral lower extremity pitting edema trace to 1+ Skin no jaundice, no petechiae and no mottling Skin Narrative: Chronic venous stasis changes noted bilateral lower extremities Neuro oriented x3, moves all extremities and no focal motor deficits Speech: speech normal Psych Psych Narrative: Eye contact is good and patient interacts appropriately, affect is a bit strange Weight / BMI Weight Weight: 56.155 kg Body Mass Index (BMI) 20.0 ABG / Lab / Microbiology Data 08/21/24 06:17 08/21/24 06:17 Laboratory: Laboratory Results - last 24 hr 08/21/24 06:17: WBC 9.4, RBC 4.15 L, Hgb 13.3, Hct 44.5, MCV 107.2 H, MCH 32.0, MCHC 29.9 L, RDW Std Deviation 57.3 H, RDW Coeff of Sarah 14.4, Plt Count 263, MPV 9.2, Immature Gran % (Auto) 0.400, Neut % (Auto) 91.3 H, Lymph % (Auto) 3.8 L, Griggs % (Auto) 4.5, Eos % (Auto) 0.0, Baso % (Auto) 0.0, Absolute Neuts (auto) 8.6 H, Absolute Lymphs (auto) 0.36 L, Nucleated RBC % 0, Sodium 139, Potassium 4.5, Chloride 93 L, Carbon Dioxide 37.0 H, Anion Gap 8, BUN 22 H, Creatinine 0.91, Estim Creat Clear Calc 55.37, Est GFR (MDRD) Non-Af 70, BUN/Creatinine Ratio 23.9 H, Glucose 138 H, Calcium 8.9 Microbiology: Microbiology 08/19/24 08:10 Mucosa - Nose SARS-CoV-2, Influenza & RSV (PCR) - Final 08/18/24 16:25 Mucosa - Other Respiratory Panel (PCR) - Final Radiography Diagnostic Testing: Radiology Impression Abdomen/Pelvis CT 08/20/24 09:56 IMPRESSION: 1. Multiple hepatic cysts. 2. New area of hypodensity in the region of the caudate lobe. Can not exclude hemangioma. 3. Periportal edema, although nonspecific may be seen in inflammation. 4. Moderate fecal content in the colon. 5. Multiple vertebral body compression abnormalities. Reading Location: [facility] Instructions Discharge Diet: Low fat / Low cholesterol Discharge Activity: Return to Normal Activity DC O2, CPAP, BIPAP Needs Home O2 Discharge instructions: Yes Type of respiratory needs?: Oxygen Oxygen frequency: At rest and With Ambulation (4) Oxygen liters per minute during Ambulation: 4 DC home with Oxygen: Yes Home O2 MD Review: I have reviewed the oxygen testing, and the patient qualifies for home oxygen equipment and portability. The patient is mobile in the home and the community. Meaningful Use Info Meaningful Use Meaningful Use Diagnoses (Choose all that apply): None applicable Ischemic Stroke Statin Dosing Therapy Reference: STATIN DOSE THERAPY REFERENCE: * Patients > 75 years receive moderate or high dose statin therapy. * Patients 75 years or YOUNGER should receive HIGH intensity statin dose unless contraindicated. You will be required to document reason for non-treatment if statin daily dose does not meet guidelines. HIGH DOSE STATIN THERAPY DAILY Atorvastatin > than or = to 40 mg Rosuvastatin > than or = to 20 mg Amlodipine + Atorvastatin > than or = to 2.5/40 mg Ezetimibe + Simvastatin 10/80 mg Simvastatin 80mg Discharge Plan Admission Admit Date/Time: 08/18/24 16:04 Primary Reason for Your Visit: Shortness of Breath Attending Provider: Miriam Gloria Primary Care Provider: Jose Carlos Lang Consulting Providers: John Manley Instructions Additional Instructions / Restrictions: 1. You MUST wear your oxygen all the time with 3 L at rest and 4 L with movement 2. Please complete steroid tapers 3. Please call your lung doctor later today or tomorrow to get an appt to be seen at their first availability 4. Take Miralax 17 gm BID until BM are regular 5. Please see the GI doctor Discharge Orders/Prescriptions Prescriptions: New furosemide 40 mg Tablet 40 mg PO BIDLX Qty: 28 0RF prednisone 10 mg tablet 10 mg PO DAILY Qty: 30 0RF Rx Instructions: 4 tabs x 3 days, 3 tabs x 3 days, 2 tabs x 3 days, 1 tab x 3 days metoprolol tartrate 25 mg tablet 12.5 mg PO BID Qty: 30 0RF Continued (DME) nebulizer accessories Kit See Rx Instructions .Route Qty: 1 0RF Rx Instructions: As directed acetaminophen 500 mg tablet 1,000 mg PO Q6H PRN (Reason: pain) lansoprazole 30 mg capsule,delayed release(DR/EC) 30 mg PO DAILY Qty: 30 0RF hydroxyzine HCl 25 mg tablet 25 mg PO QHS PRN (Reason: sleep) Qty: 30 0RF Patient Comments: PT DOESNT TAKE OFTEN BECAUSE IT CAUSES BREATHING PROBLEMS. Changed ipratropium-albuterol 0.5 mg-3 mg(2.5 mg base)/3 mL Solution For Nebulization 3 ml inhalation Q4H PRN (Reason: COPD, exacerbation, hypoxia) Qty: 90 0RF albuterol sulfate 2.5 mg /3 mL (0.083 %) Solution For Nebulization 2.5 mg inhalation Q2H PRN (Reason: Dyspnea, wheezing) Qty: 75 0RF polyethylene glycol 3350 [Miralax] 17 gram/dose powder 17 g PO BID Qty: 119 0RF Discontinued meclizine 25 mg tablet 25 mg PO DAILY PRN (Reason: dizziness) Patient Comments: PT STATES SHE DOESNT USE OFTEN BECAUSE IT SUPPRESSES RESPIRATORY SYSTEM lisinopril 20 mg tablet 20 mg PO DAILY Patient Comments: PT BEEN OUT FOR SEVERAL MONTHS Referrals / Follow Up: Gillian Rudolph MD [Non-Staff] - See Referral Note (Call later today or Saturday to set up and appt to be seen as soon as they have availability) Jose Carlos Lang MD [Primary Care Provider] - In 1 Week Matt Rodriguez DO [Med Staff - Active Staff] - 08/27/24 8:30 am (with Yecenia Kumar ) Disposition Disposition (needs filled in before D/C Order can be placed): Home, Self Care Charges/Coding Visit Charges Inpatient E&M: 96000 Disch Hosp >30min
--- NOTE | 2024-08-21 15:02 | PHA.DC_ITS ---
Pharmacy [facility] has performed discharge medication reconciliation and counseling for this patient. The patient's discharge medication list was reviewed for discrepancies and discrepancies were resolved. The patient was counseled on the following discharge medications and changes in medications for homegoing were reviewed. The Reason for Use, instructions for use, and potential side effects were reviewed for all new medications. The patient's questions regarding all of their medications were answered. 1. Prednisone 40 mg x 3 days, 30 mg x 3 days, 20 mg x 3 days, 10 mg x 3 days then stop 2. Metoprolol tartrate 12.5 mg PO BID 3. Furosemide 40 mg PO BID The patient was able to verbally demonstrate an understanding of their discharge medications. Medications at Discharge Home Medications nebulizer accessories #1 ea 11/26/21 acetaminophen 500 mg tablet 1,000 mg PO Q6H PRN pain 08/18/24 albuterol sulfate 2.5 mg/3 mL (0.083 %) solution for nebulization 2.5 mg (3 mL) inhalation Q2H PRN Dyspnea, wheezing #75 mL 08/21/24 furosemide 40 mg tablet 40 mg PO BIDLX #28 tabs 08/21/24 hydroxyzine HCl 25 mg tablet 25 mg PO QHS PRN sleep #30 tabs 08/21/24 ipratropium 0.5 mg-albuterol 3 mg (2.5 mg base)/3 mL nebulization soln 3 ml inhalation Q4H PRN COPD, exacerbation, hypoxia #90 mL 08/21/24 lansoprazole 30 mg capsule,delayed release 30 mg PO DAILY #30 caps 08/21/24 metoprolol tartrate 25 mg tablet 12.5 mg (1/2 x 25 mg) PO BID #30 tabs 08/21/24 polyethylene glycol 3350 17 gram/dose oral powder (Miralax) 17 g PO BID Constipation #119 grams 08/21/24 prednisone 10 mg tablet 10 mg PO DAILY #30 tabs 08/21/24
== END 2024-08-21 15:43 | disposition home or self-care (01) | DRG 140 ==
LOC: ED 16:00 → MS3 17:07
PROVIDERS: Emergency Provider Emergency Medicine; PCP Family Medicine; Visit Provider Internal Medicine
DX: J44.1 Chronic obstructive pulmonary disease with (acute) exacerbation (principal); I50.33 Acute on chronic diastolic (congestive) heart failure; E43 Unspecified severe protein-calorie malnutrition; I27.23 Pulmonary hypertension due to lung diseases and hypoxia; I11.0 Hypertensive heart disease with heart failure; J96.12 Chronic respiratory failure with hypercapnia; K21.9 Gastro-esophageal reflux disease without esophagitis; G47.33 Obstructive sleep apnea (adult) (pediatric); F17.210 Nicotine dependence, cigarettes, uncomplicated; E87.6 Hypokalemia; F41.9 Anxiety disorder, unspecified; K59.09 Other constipation; R14.0 Abdominal distension (gaseous); J96.11 Chronic respiratory failure with hypoxia; R60.0 Localized edema; R93.5 Abnormal findings on diagnostic imaging of other abdominal regions, including retroperitoneum; Z68.20 Body mass index [BMI] 20.0-20.9, adult; Z71.3 Dietary counseling and surveillance; Z91.148 Patient's other noncompliance with medication regimen for other reason; Z91.198 Patient's noncompliance with other medical treatment and regimen for other reason; Z99.81 Dependence on supplemental oxygen; Z79.01 Long term (current) use of anticoagulants; Z79.899 Other long term (current) drug therapy
CPT/HCPCS: 36415; 36600; 71046; 74177; 80048; 80053; 82803; 83605; 83735; 83880; 84100; 85025; 87631; 87633; 93005; 93306; 93312; 93320; 93325; 93970; 94640; 97162; 97165; 97802; 99252; 99284; 99406; Q9967; A4216; G0463; J1940

== ENCOUNTER 2025-01-24 18:09 | Inpatient (IN) | payer MEDICAID, SELFPAY ==
[2025-01-24] VITALS (13 sets, daily range): BP systolic 104–124; BP diastolic 76–98; PULSE 65–82; RESP 14–212; TEMP 36.6–37.1; O2SAT 85–100; BMI 17.4
--- NOTE | 2025-01-24 19:00 | EKG12_ITS ---
Test Reason : SOB Blood Pressure : */* mmHG Vent. Rate : 70 BPM Atrial Rate : 70 BPM P-R Int : 138 ms QRS Dur : 56 ms QT Int : 366 ms P-R-T Axes : 80 76 80 degrees QTcB Int : 395 ms Normal sinus rhythm Normal ECG When compared with ECG of 18-Aug-2024 14:19, Questionable change in QRS axis Criteria for Septal infarct are no longer Present Nonspecific T wave abnormality no longer evident in Inferior leads T wave inversion no longer evident in Anterior leads Confirmed by JHOAN KHAN, MARIBEL ([id number]), assignment editor NICOLE ALBERTO ([id number]) on 01/28/2025 6:27:25 AM Referred By: Confirmed By: MARIBEL STAPLES MD
--- NOTE | 2025-01-24 19:01 | ED.VIS.DYS ---
HPI History of Present Illness Chief Complaint: Shortness of Breath Onset/Context/Timing Onset: Today Context: gradual Timing: Continuous Quality: Positive for Dyspnea on exertion Worsened by: - (Bending forward) Relieved by: - (Standing) Associated Symptoms rhinorrhea, fever, subjective and chills; Negative for cough, post nasal drip, ear pain, sore throat, clear sputum, white sputum, yellow sputum or green sputum Chest Pain: Positive for Sharp Narrative Narrative: Patient presents with shortness of breath and a fall that occurred today. Patient states that she was having some pain in her back and abdomen. Patient states she was having some difficulty breathing. Patient states she was walking in her house with her oxygen tubing and was trying to move that when she fell. Patient complains of pain in her back and abdomen. Patient describes it as burning, aching, and stabbing. Patient states her pain actually gets better when she stands but is worse when she bends forward. Patient denies any loss of consciousness. Patient admits to some subjective fevers and chills. Patient admits to some nausea but denies any vomiting. [facility] Medical History Abdominal distention Chronic hypercapnic respiratory failure Cardiac dysrhythmia MVP (mitral valve prolapse) Migraines Bipolar disorder Anxiety Depression GERD (gastroesophageal reflux disease) CPAP (continuous positive airway pressure) dependence Sleep apnea Smoker Asthma Migraines COPD (chronic obstructive pulmonary disease) HTN (hypertension) Home Medications Medication Instructions Recorded Last Taken Type nebulizer accessories #1 ea 11/26/21 Unknown Rx acetaminophen 500 mg tablet 1,000 mg PO Q6H PRN pain 08/18/24 08/18/24 History albuterol sulfate 2.5 mg/3 mL 2.5 mg (3 mL) inhalation Q2H PRN 08/21/24 Unknown Rx (0.083 %) solution for nebulization Dyspnea, wheezing #75 mL furosemide 40 mg tablet 40 mg PO BIDLX #28 tabs 08/21/24 Unknown Rx hydroxyzine HCl 25 mg tablet 25 mg PO QHS PRN sleep #30 tabs 08/21/24 Unknown Rx ipratropium 0.5 mg-albuterol 3 mg 3 ml inhalation Q4H PRN COPD, 08/21/24 Unknown Rx (2.5 mg base)/3 mL nebulization exacerbation, hypoxia #90 mL soln lansoprazole 30 mg capsule,delayed 30 mg PO DAILY #30 caps 08/21/24 Unknown Rx release metoprolol tartrate 25 mg tablet 12.5 mg (1/2 x 25 mg) PO BID #30 08/21/24 Unknown Rx tabs linaclotide 290 mcg capsule 290 mcg PO QAM #90 caps 09/24/24 Unknown Rx (Linzess) polyethylene glycol 3350 17 17 g PO BID PRN Constipation 09/24/24 Unknown History gram/dose oral powder (Miralax) Allergy/AdvReac Type Severity Reaction Status Date / Time Sulfa (Sulfonamide Allergy Intermediate Other Verified 01/24/25 18:17 Antibiotics) Latex, Natural Rubber Allergy Rash Verified 01/24/25 18:17 nabumetone AdvReac Intermediate Other Verified 01/24/25 18:17 meloxicam AdvReac Mild Nausea Verified 01/24/25 18:17 Family History Mother Heart disease Father Heart disease Surgical History History of tonsillectomy H/O shoulder surgery History of cholecystectomy Social History household members: none Smoking Status: Current every day smoker tobacco type: cigarettes Tobacco: How many years used: 45 alcohol intake: former details: Reports prior heavy EtOH abuse, notes she does not drink routinely, vague. substance use type: does not use ROS ROS ED Constitutional Constitutional ED: Reports chills and fever(s) Eyes Eyes: Reports blurry vision; Denies diplopia ENT ENT ED: Reports rhinorrhea; Denies sore throat Cardiovascular Cardiovascular: Reports chest pain; Denies palpitations Respiratory/Chest Respiratory/Chest: Reports dyspnea; Denies cough Gastrointestinal Gastrointestinal: Reports abdominal pain and nausea; Denies vomiting Genitourinary Genitourinary ED: Denies dysuria or hematuria Musculoskeletal Musculoskeletal: Reports back pain and neck pain Integumentary Denies abscess or rash Neurologic Neurologic: Denies headache(s) or weakness Allergic/Immunologic Allergic/Immunologic ED: Denies mouth swelling or urticaria EXAM Physical Exam Const Vital Signs: 01/24/25 18:09 01/24/25 18:09 01/24/25 18:30 Temperature 98.1 F Temperature Source Oral Pulse Rate 82 74 Respiratory Rate 212 H 22 H Respiratory Effort Short of Breath Respiratory Depth Normal Respiratory Pattern Normal Blood Pressure 117/76 105/81 H Blood Pressure Mean 89 91 Pulse Ox 100 85 Oxygen Delivery Method Room Air Room Air Nasal Cannula Oxygen Flow Rate (L/min) 5 01/24/25 18:58 01/24/25 19:00 01/24/25 19:00 Temperature Temperature Source Pulse Rate 72 71 Respiratory Rate 15 14 Respiratory Effort Respiratory Depth Respiratory Pattern Blood Pressure 111/80 Blood Pressure Mean 92 Pulse Ox 100 Oxygen Delivery Method Nasal Cannula Oxygen Flow Rate (L/min) 5 01/24/25 19:00 01/24/25 19:30 01/24/25 20:00 Temperature 98.1 F 98.0 F Temperature Source Oral Oral Pulse Rate 68 68 74 Respiratory Rate 20 H 20 H 16 Respiratory Effort Respiratory Depth Respiratory Pattern Blood Pressure 122/83 H 123/89 H 116/97 H Blood Pressure Mean 96 100 103 Pulse Ox 98 97 100 Oxygen Delivery Method Nasal Cannula Nasal Cannula Nasal Cannula Oxygen Flow Rate (L/min) 4 4 4 01/24/25 20:30 01/24/25 21:00 01/24/25 21:30 Temperature 98.8 F Temperature Source Oral Pulse Rate 73 70 65 Respiratory Rate 18 18 18 Respiratory Effort Respiratory Depth Respiratory Pattern Blood Pressure 124/98 H 104/89 H 118/88 H Blood Pressure Mean 106 94 98 Pulse Ox 100 100 99 Oxygen Delivery Method Nasal Cannula Nasal Cannula Nasal Cannula Oxygen Flow Rate (L/min) 4 4 4 01/24/25 22:00 01/24/25 22:30 Temperature 98.2 F Temperature Source Oral Pulse Rate 76 78 Respiratory Rate 18 18 Respiratory Effort Respiratory Depth Respiratory Pattern Blood Pressure 108/77 110/78 Blood Pressure Mean 87 88 Pulse Ox 100 100 Oxygen Delivery Method Nasal Cannula Room Air Oxygen Flow Rate (L/min) 4 Positive well developed and cachectic Constitutional Narrative: BMI is 17.4. General Appearance ED: well developed, cachectic and NAD Nutritional Appearance: cachectic HEENT Reports dry mucous membranes Mouth ED: Yes dry mucous membranes Mouth: dry mucous membranes Neck supple and no JVD Resp Auscultation: diminished lung sounds diffuse Cardio regular rate and regular rhythm GI non-tender and non-distended Palpation: soft Extremity General Extremety ED: Negative for edema or tenderness General Extremity: Negative for edema Neuro oriented x3, CN's II-XII intact bilaterally and no sensory deficits noted [place] Coma Scale: document GCS findings Spontaneous Obeys Commands Oriented 15 Sensorium / Orientation: alert Motor Exam: general weakness Psych mental status grossly normal MDM MDM MDM Narrative Medical decision making narrative: Differential diagnosis includes pneumonia, bronchitis, viral illness, congestive heart failure, COPD, cardiac dysrhythmia, cardiac ischemia, electrolyte abnormality, anemia, and anxiety. EKG will be obtained to assess for cardiac dysrhythmia and cardiac ischemia. Chest x-ray will be obtained to assess for pneumonia or bronchitis. CBC will be obtained to assess for leukocytosis and anemia. Basic metabolic profile will be obtained to assess for electrolyte abnormality and renal function. High-sensitivity troponin will be obtained to assess for cardiac ischemia. 2-hour repeat high-sensitivity troponin will be obtained to assess for ongoing cardiac ischemia. Total CPK will be obtained to assess for rhabdomyolysis. Urinalysis will be obtained to assess for urinary tract infection and hematuria. History & Record Review Additional record(s) reviewed:: Prior labs Lab Data Attestation: I reviewed the patient's lab results. Lab results narrative: CBC was reviewed. There is a mild anemia with a hemoglobin of 8.7 and hematocrit 31.0. Basic metabolic profile was reviewed and was essentially within normal limits. Total CPK was reviewed and was normal at 133. Initial high-sensitivity troponin was reviewed and was 22. 2-hour repeat high-sensitivity troponin was reviewed and was also 22. Urinalysis was reviewed. There is no evidence of urinary tract infection or hematuria. Labs: Laboratory Results - last 24 hr 01/24/25 01/24/25 01/24/25 18:15 20:15 20:37 WBC 8.2 RBC 2.96 L Hgb 8.7 L Hct 31.0 L MCV 104.7 H MCH 29.4 MCHC 28.1 L RDW Std Deviation 49.0 H RDW Coeff of Sarah 12.8 Plt Count 295 MPV 9.5 Immature Gran % (Auto) 1.200 H Neut % (Auto) 79.2 H Lymph % (Auto) 8.1 L [place] % (Auto) 10.4 H Eos % (Auto) 0.6 Baso % (Auto) 0.5 Absolute Neuts (auto) 6.5 Absolute Lymphs (auto) 0.66 L Nucleated RBC % 0 Sodium 141 Potassium 4.7 Chloride 92 L Carbon Dioxide 44.1 H Anion Gap 5 BUN 14 Creatinine 0.64 L Estim Creat Clear Calc 68.55 Est GFR (MDRD) Non-Af 99 BUN/Creatinine Ratio 21.9 H Glucose 123 H Calcium 9.0 Total Creatine Kinase 133 Troponin T High Sens 22 H Troponin T Hi Sens 2 Hr 22 H Urine Color Yellow Urine Clarity Clear Urine pH 7.0 Ur Specific [place] 1.010 Urine Protein 15 H Urine Glucose (UA) Normal Urine Ketones Negative Urine Occult Blood Negative Urine Nitrite Negative Urine Bilirubin Negative Urine Urobilinogen Normal Ur Leukocyte Esterase Negative Urine RBC 0 SEEN Urine WBC 0-5 SEEN Ur Squamous Epith Cells 0-5 SEEN Urine Bacteria RARE Urine Mucus 0 SEEN Radiography Chest X-Ray - ED: 2 View, Read by ED Physician, Read by Radiologist and Chronic Changes Diagnostic Testing: Clinical Impression(s) from Imaging Studies Chest X-Ray 01/24/25 19:10 IMPRESSION: Suggestion of COPD. Reading Location: [facility] and lateral chest x-ray was obtained. There are 2 views. On my independent interpretation, lung hardin show signs of COPD. There is no acute infiltrate. There is normal cardiac silhouette. Bony thorax is normal. There is no acute process noted. Radiologist also interpreted the x-ray and agrees. EKG Initial EKG: Attestation: I personally reviewed and interpreted this EKG as follows: Interpretation: Sinus Rhythm (70) and No Acute Injury Pattern Comments: EKG was obtained. On my independent interpretation, it showed a normal sinus rhythm with a rate of 70. NV interval, QRS interval, and QTc intervals were all normal. [place] was normal. There are no acute ST or T wave changes. Prior EKG tracings: available for review Prior: Unchanged (08/18/2024) Management Discussion w/another healthcare provider: Hospitalist Additional Tests and Interventions Additional Tests or Interventions: Patient was complaining of worsening back pain. Because of this, x-rays of the lumbar spine will be obtained to assess for lumbar compression fracture. Treatment and Re-Evaluation :: Patient was given a DuoNeb aerosol here. Patient was feeling somewhat better on reevaluation. Patient was maintaining oxygenation saturation at 100% on 4 L nasal cannula. We attempted to ambulate the patient. Patient states she was unable to ambulate. Because of this, hospitalist was contacted for admission. Case was discussed with the hospitalist. He will admit the patient to his service. Patient understood and was agreeable with the plan. All questions were answered. Discharge Plan Triage Chief Complaint: Shortness of Breath ED Provider: John Vergara Dx/Rx/DC Orders Prescriptions: No Action polyethylene glycol 3350 [Miralax] 17 gram/dose powder 17 g PO BID PRN (Reason: Constipation) Linzess 290 mcg capsule 290 mcg PO QAM Qty: 90 1RF Rx Instructions: take one every day 30 minutes before first meal (DME) nebulizer accessories Kit See Rx Instructions .Route Qty: 1 0RF Rx Instructions: As directed acetaminophen 500 mg tablet 1,000 mg PO Q6H PRN (Reason: pain) furosemide 40 mg Tablet 40 mg PO BIDLX Qty: 28 0RF ipratropium-albuterol 0.5 mg-3 mg(2.5 mg base)/3 mL Solution For Nebulization 3 ml inhalation Q4H PRN (Reason: COPD, exacerbation, hypoxia) Qty: 90 0RF albuterol sulfate 2.5 mg /3 mL (0.083 %) Solution For Nebulization 2.5 mg inhalation Q2H PRN (Reason: Dyspnea, wheezing) Qty: 75 0RF lansoprazole 30 mg capsule,delayed release(DR/EC) 30 mg PO DAILY Qty: 30 0RF hydroxyzine HCl 25 mg tablet 25 mg PO QHS PRN (Reason: sleep) Qty: 30 0RF Patient Comments: PT DOESNT TAKE OFTEN BECAUSE IT CAUSES BREATHING PROBLEMS. metoprolol tartrate 25 mg tablet 12.5 mg PO BID Qty: 30 0RF Primary Care Provider: Jose Carlos Lang Referrals: Jose Carlos Lang MD [Primary Care Provider, Family Practice] Print Language: Tajik
--- NOTE | 2025-01-24 19:10 | RAD_ITS ---
EXAM: XR Chest, 2 Views CLINICAL INDICATION: DYSPNEA TECHNIQUE: Frontal and lateral views of the chest. COMPARISON: XR Chest dated 08/18/2024 FINDINGS: LUNGS AND PLEURAL SPACES: Trace bilateral pleural effusions. Hyperlucent lungs. Flattening of the diaphragm. No consolidation. No pneumothorax. HEART: Unremarkable. No cardiomegaly. MEDIASTINUM: Unremarkable. Normal mediastinal contour. BONES/JOINTS: Stable osseous structures. No acute fracture. RAD/Chest PA and Lateral IMPRESSION: Suggestion of COPD. Reading Location: [id number]
[2025-01-24 19:19] LABS: Hematocrit 31.0 % (37-47); Hemoglobin 8.7 g/dL (12.0-15.0); Immature Granulocytes Count 0.100 X10^3/uL (0.0-0.0); Mean Corp Hgb Conc 28.1 g/dL (32-36); Mean Corpuscular Volume 104.7 fL (81-99); Mean Platelet Vol. 9.5 fl (6.2-12.0); NRBC Flagged by Analyzer 0 % (0-5); Platelet Count 295 K/mm3 (150-450); RBC Distribution Width CV 12.8 % (11.6-14.6); RBC Distribution Width SD 49.0 fl (35.1-43.9); Red Blood Count 2.96 M/mm3 (4.2-5.4); White Blood Count 8.2 K/mm3 (4.4-11.0)
[2025-01-24] MEDS: 0.9% Normal Saline (500mL Bag) 500 ML 999 ML IV (19:30)
[2025-01-24 19:48] LABS: Anion Gap 5 (5-15); BUN 14 mg/dL (4-19); BUN/Creat Ratio 21.9 RATIO (10-20); CPK Total, Creatine Kinase 133 U/L (24-195); Calcium,Total 9.0 mg/dL (7.6-11.0); Carbon Dioxide 44.1 mmol/L (21.0-32.0); Chloride 92 mmol/L (98-108); Estimated Creatinine Clearance 68.55 ml/min (50-250); Glucose 123 mg/dL (70-99); Potassium 4.7 mmol/L (3.3-5.1); Troponin T High Sensitivity 22 ng/L (<=14)
[2025-01-24 20:18] LABS: Mucous, Urine 0 SEEN /hpf (<or=2+); Red Blood Cells-Urine 0 SEEN /hpf (0-5)
[2025-01-24 20:26] LABS: Color, Urine Yellow (Yellow); Glucose, Dipstick Normal (Normal); Ketone-Dipstick Negative (Negative); Leukocyte Esterase-Dipstick Negative /ul (Negative); Nitrite-Dipstick Negative (Negative); Occult Blood-Urine Negative /ul (Negative); Protein-Dipstick 15 mg/dl (Negative); Specific Gravity, Urine 1.010 (1.002-1.030); Urine Bilirubin Dipstick Negative (Negative)
[2025-01-24 20:40] LABS: Squamous Epithelial Cells - UA 0-5 SEEN /hpf (5-10)
[2025-01-24 21:56] LABS: Troponin T High Sens 2 HR 22 ng/L (<=14)
--- NOTE | 2025-01-24 23:07 | PCM.HP.STD ---
[facility] - General General Date of Admission: 01/24/25 Date of Service: 01/24/25 Chief Complaint: SOB and Fall with Generalized Weakness. HPI Narrative SHYANN ENNIS, is a 64 F with a past medical history of essential hypertension; on metoprolol BID plus furosemide, history of tobacco abuse; with subsequent COPD, chronic hypoxic respiratory failure on 2L NC, VAIBHAV, history of mitral valve prolapse, history of bipolar disorder; currently not on treatment, history of migraine headaches, history of cholecystectomy, IBS; on constipation-type on linaclotide plus polyethylene glycol BID prn, GERD; on lansoprazole and OA; with history of left shoulder surgery who presents to [facility] ER complaining of shortness of breath and fall with generalized weakness. Ms. Ennis is a tangential historian but she reports her symptoms began a few hours prior to arrival when she was attempting to ambulate in her home and got twisted up in her oxygen tubing causing her to fall. She then noticed worsening shortness of breath and generalized weakness so she decided to come in for further evaluation and treatment. She admits to generalized abdominal pain since the fall but she denies LOC or significant head trauma. She also admits to dark stools for the past ~10 days with patient statin her linaclotide causes her to have ~6 BM's/day. She denies associated fever, chills, nausea, vomiting, diarrhea, chest pain, palpitations, heart racing, lower extremity edema, dysuria, hematuria, headache or rash. In the ER she was noted to have a CXR that revealed suggestion of COPD with otherwise unremarkable laboratory studies and vital signs and she was then diagnosed with Generalized Weakness with Ambulatory Dysfunction after Fall and she was then admitted to the general medical floor under observation status for ongoing care for status is expected to be less than 2 midnights. [facility] Medical History (Updated 01/24/25 @ 23:[address] Vance Paulino, DO) Chronic hypercapnic respiratory failure Abdominal distention Cardiac dysrhythmia MVP (mitral valve prolapse) Migraines Bipolar disorder Anxiety Depression GERD (gastroesophageal reflux disease) CPAP (continuous positive airway pressure) dependence Sleep apnea Smoker Asthma Migraines COPD (chronic obstructive pulmonary disease) HTN (hypertension) Home Medications Medication Instructions Recorded Last Taken Type nebulizer accessories #1 ea 11/26/21 Unknown Rx acetaminophen 500 mg tablet 1,000 mg PO Q6H PRN pain 08/18/24 08/18/24 History albuterol sulfate 2.5 mg/3 mL 2.5 mg (3 mL) inhalation Q2H PRN 08/21/24 Unknown Rx (0.083 %) solution for nebulization Dyspnea, wheezing #75 mL furosemide 40 mg tablet 40 mg PO BIDLX #28 tabs 08/21/24 Unknown Rx hydroxyzine HCl 25 mg tablet 25 mg PO QHS PRN sleep #30 tabs 08/21/24 Unknown Rx ipratropium 0.5 mg-albuterol 3 mg 3 ml inhalation Q4H PRN COPD, 08/21/24 Unknown Rx (2.5 mg base)/3 mL nebulization exacerbation, hypoxia #90 mL soln lansoprazole 30 mg capsule,delayed 30 mg PO DAILY gerd #30 caps 08/21/24 Unknown Rx release metoprolol tartrate 25 mg tablet 12.5 mg (1/2 x 25 mg) PO BID heart 08/21/24 Unknown Rx #30 tabs linaclotide 290 mcg capsule 290 mcg PO QAM bowel movement #90 09/24/24 Unknown Rx (Linzess) caps polyethylene glycol 3350 17 17 g PO BID PRN Constipation 09/24/24 Unknown History gram/dose oral powder (Miralax) Allergy/AdvReac Type Severity Reaction Status Date / Time Sulfa (Sulfonamide Allergy Intermediate Other Verified 01/24/25 18:17 Antibiotics) Latex, Natural Rubber Allergy Rash Verified 01/24/25 18:17 nabumetone AdvReac Intermediate Other Verified 01/24/25 18:17 meloxicam AdvReac Mild Nausea Verified 01/24/25 18:17 Family History Mother Heart disease Father Heart disease Surgical History History of tonsillectomy H/O shoulder surgery History of cholecystectomy Social History household members: none Smoking Status: Current every day smoker tobacco type: cigarettes Tobacco: How many years used: 45 alcohol intake: former details: Reports prior heavy EtOH abuse, notes she does not drink routinely, vague. substance use type: does not use ROS ROS Narrative Review of Systems: Constitutional: Patient denies fever or chills. Eyes: Patient denies change in vision or discharge from eyes. ENT: Patient denies runny nose, sore throat or ear pain. Resp: Patient admits to shortness of breath worsened after fall but she denies wheezing or cough. CV: Patient denies chest pain, palpitations, heart racing or lower extremity edema. GI: Patient denies abdominal pain, nausea, vomiting or diarrhea. : Patient denies dysuria or hematuria. MSK: Patient admits to generalized weakness after recent fall as per HPI. Skin: Patient denies rash, abscess, wounds or jaundice. Psych: Patient denies symptoms uncontrolled depression or anxiety. Neuro: Patient denies headache, paresthesias or focal neurologic deficits. Allergy: Patient denies lip swelling, tongue swelling or urticaria. Hematology: Patient denies easy bleeding or easy bruisability. Endocrinology: Patient denies polyuria, polydipsia, polyphagia or heat/cold intolerance. 14 point ROS otherwise negative except for positives noted above in HPI. Vital Signs Vital Signs Vital Signs: 01/24/25 18:09 01/24/25 18:09 01/24/25 18:30 Temperature 98.1 F Temperature Source Oral Pulse Rate 82 74 Respiratory Rate 212 H 22 H Respiratory Effort Short of Breath Respiratory Depth Normal Respiratory Pattern Normal Blood Pressure 117/76 105/81 H Blood Pressure Mean 89 91 Pulse Ox 100 85 Oxygen Delivery Method Room Air Room Air Nasal Cannula Oxygen Flow Rate (L/min) 5 01/24/25 18:58 01/24/25 19:00 01/24/25 19:00 Temperature Temperature Source Pulse Rate 72 71 Respiratory Rate 15 14 Respiratory Effort Respiratory Depth Respiratory Pattern Blood Pressure 111/80 Blood Pressure Mean 92 Pulse Ox 100 Oxygen Delivery Method Nasal Cannula Oxygen Flow Rate (L/min) 5 01/24/25 19:00 01/24/25 19:30 01/24/25 20:00 Temperature 98.1 F 98.0 F Temperature Source Oral Oral Pulse Rate 68 68 74 Respiratory Rate 20 H 20 H 16 Respiratory Effort Respiratory Depth Respiratory Pattern Blood Pressure 122/83 H 123/89 H 116/97 H Blood Pressure Mean 96 100 103 Pulse Ox 98 97 100 Oxygen Delivery Method Nasal Cannula Nasal Cannula Nasal Cannula Oxygen Flow Rate (L/min) 4 4 4 01/24/25 20:30 01/24/25 21:00 01/24/25 21:30 Temperature 98.8 F Temperature Source Oral Pulse Rate 73 70 65 Respiratory Rate 18 18 18 Respiratory Effort Respiratory Depth Respiratory Pattern Blood Pressure 124/98 H 104/89 H 118/88 H Blood Pressure Mean 106 94 98 Pulse Ox 100 100 99 Oxygen Delivery Method Nasal Cannula Nasal Cannula Nasal Cannula Oxygen Flow Rate (L/min) 4 4 4 01/24/25 22:00 01/24/25 22:30 Temperature 98.2 F Temperature Source Oral Pulse Rate 76 78 Respiratory Rate 18 18 Respiratory Effort Respiratory Depth Respiratory Pattern Blood Pressure 108/77 110/78 Blood Pressure Mean 87 88 Pulse Ox 100 100 Oxygen Delivery Method Nasal Cannula Room Air Oxygen Flow Rate (L/min) 4 Weight Weight: 107 lb 12.897 oz Body Mass Index (BMI) 17.4 Physical Exam Const alert, oriented x3, no apparent distress and average body habitus Constitutional Narrative: Patient appears older than her stated age but nontoxic. General Appearance: cooperative HEENT normocephalic, head/scalp atraumatic, hearing grossly normal bilaterally and moist oral mucous membranes Eyes PERRL, EOMs intact bilaterally and conjunctivae normal Neck no lymphadenopathy, supple and no JVD Resp Resp Narrative: Diminished breath sounds throughout. Cardio regular rate and regular rhythm GI soft to palpation and non-distended GI Narrative: Generalized tenderness to palpation of her abdomen diffusely with normoactive bowel sounds. Extremity normal to inspection, full ROM and no clubbing, cyanosis or edema Skin Skin Narrative: Patient has evidence of rash, abscess, wounds or jaundice. Neuro oriented x3, CN's II-XII intact bilaterally, moves all extremities and no focal motor deficits Sensorium / Orientation: awake, alert, oriented to person, oriented to place and oriented to time Speech: speech normal Psych affect normal Results Medical Records Data Attestation: I reviewed the patient's medical records Lab / Micro Data Attestation: I reviewed the patient's lab results. 01/24/25 18:15 01/24/25 18:15 Labs: Laboratory Results - last 24 hr 01/24/25 18:15: WBC 8.2, RBC 2.96 L, Hgb 8.7 L, Hct 31.0 L, MCV 104.7 H, MCH 29.4, MCHC 28.1 L, RDW Std Deviation 49.0 H, RDW Coeff of Sarah 12.8, Plt Count 295, MPV 9.5, Immature Gran % (Auto) 1.200 H, Neut % (Auto) 79.2 H, Lymph % (Auto) 8.1 L, [place] % (Auto) 10.4 H, Eos % (Auto) 0.6, Baso % (Auto) 0.5, Absolute Neuts (auto) 6.5, Absolute Lymphs (auto) 0.66 L, Nucleated RBC % 0, Sodium 141, Potassium 4.7, Chloride 92 L, Carbon Dioxide 44.1 H, Anion Gap 5, BUN 14, Creatinine 0.64 L, Estim Creat Clear Calc 68.55, Est GFR (MDRD) Non-Af 99, BUN/Creatinine Ratio 21.9 H, Glucose 123 H, Calcium 9.0, Total Creatine Kinase 133, Troponin T High Sens 22 H 01/24/25 20:15: Urine Color Yellow, Urine Clarity Clear, Urine pH 7.0, Ur Specific [place] 1.010, Urine Protein 15 H, Urine Glucose (UA) Normal, Urine Ketones Negative, Urine Occult Blood Negative, Urine Nitrite Negative, Urine Bilirubin Negative, Urine Urobilinogen Normal, Ur Leukocyte Esterase Negative, Urine RBC 0 SEEN, Urine WBC 0-5 SEEN, Ur Squamous Epith Cells 0-5 SEEN, Urine Bacteria RARE, Urine Mucus 0 SEEN 01/24/25 20:37: Troponin T Hi Sens 2 Hr 22 H Imaging Radiology Impression Chest X-Ray 01/24/25 19:10 IMPRESSION: Suggestion of COPD. Reading [facility] Assessment & Plan Assessment/Plan (1) Generalized weakness: (2) Ambulatory dysfunction: (3) Fall: QUALIFIERS: Encounter type: initial encounter Qualified Code(s): W19.XXXA - Unspecified fall, initial encounter (4) COPD (chronic obstructive pulmonary disease): QUALIFIERS: COPD type: unspecified COPD Qualified Code(s): J44.9 - Chronic obstructive pulmonary disease, unspecified (5) Dark stools: (6) Anemia: QUALIFIERS: Anemia type: unspecified type Qualified Code(s): D64.9 - Anemia, unspecified PLAN: Plan 1. Generalized Weakness with Ambulatory Dysfunction after Fall - Admit to general medical floor under observation status. Give acetaminophen MI as needed for [id number] (level 1-5/10) pain or fever. Give morphine IV as needed for severe (level 6-10/10) pain. Finally, PT/OT and Case Management to consult and treat on-rounds in the AM for further recommendations with help appreciated in advance. 2. History of tobacco abuse; with subsequent COPD and chronic hypoxic respiratory failure on 2L NC complicating #1 - Stable with no evidence of acute flare at this time. Continue scheduled and prn nebulizers plus supplemental oxygen as previous. 3. Dark stools with decreased hemoglobin of 8.7 g/dL present on admission (previous ~13 g/dL ~5 months ago) compounding #1 & #2 - Keep NPO plus give pantoprazole 40 mg IV BID. Hemoccult stools and check iron studies, ferritin, B12 and Folate levels. Consider formal GI consultation if objective evidence of bleeding is confirmed. 4. Essential hypertension; on metoprolol BID plus furosemide - Hold present therapy and give hydralazine IV prn for systolic blood pressure > 160 mmHg. 5. VAIBHAV - Hold CPAP to avoid insufflating bowel in case of occult bleeding outlined in #3. 6. History of mitral valve prolapse - Noted. 7. History of bipolar disorder; currently not on treatment - Stable. 8. History of migraine headaches - Stable with no complaints related to this issue. 9. History of cholecystectomy - Noted. 10. IBS; of constipation-type on linaclotide plus polyethylene glycol BID prn - Restart bowel regimen when patient cleared for oral intake. 11. GERD; on lansoprazole - Continue PPI IV as outlined in #3. 12. OA; with history of Left shoulder surgery - Give acetaminophen prn as outlined in #1. 13. DVT prophylaxis - SCD's only with dark stools and decreased hemoglobin outlined in #3. Total time: Approximately (but not less than) 70 minutes.
--- NOTE | 2025-01-24 23:50 | ED.RN ---
This RN was notified that the patient was in x-ray but was refusing to lay flat for the scan. This RN notified Dr. Vergara and he gave a verbal order to cancel it d/t refusal.
[2025-01-25] VITALS (12 sets, daily range): BP systolic 100–134; BP diastolic 74–82; PULSE 66–90; RESP 12–19; TEMP 36.4–37.2; O2SAT 93–100; BMI 16.7
[2025-01-25 00:09] LABS: FOLATES,SERUM (FOLIC ACID) 12.00 ng/mL (4.60-34.80)
[2025-01-25 00:18] LABS: Troponin T High Sens 4 HR 22 ng/L (<=14)
[2025-01-25 00:22] LABS: CPK Total, Creatine Kinase 163 U/L (24-195)
[2025-01-25 00:30] LABS: Ferritin 40 ng/mL (22-378); Iron 16 ug/dL (50-170); Iron Binding Capacity,Total 346 ug/dL (250-450); Iron Binding Capacity,Unsat 330 ug/dL (228-428); Magnesium 2.1 mg/dL (1.5-2.2)
[2025-01-25] MEDS: 0.9% Normal Saline (1000mL) 1,000 ML 70 ML IV (00:31)
[2025-01-25 00:48] LABS: Vitamin B12 238 pg/mL (180-914)
[2025-01-25] MEDS: Pantoprazole Sodium 40 MG in 0.9% Normal Saline (100mL MB+) 100 ML 330 MG IV ×3 (00:53→22:13)
[2025-01-25 07:12] LABS: Hematocrit 26.3 % (37-47); Hemoglobin 7.6 g/dL (12.0-15.0); Immature Granulocytes Count 0.020 X10^3/uL (0.0-0.0); Mean Corp Hgb Conc 28.9 g/dL (32-36); Mean Corpuscular Volume 101.5 fL (81-99); Mean Platelet Vol. 9.5 fl (6.2-12.0); NRBC Flagged by Analyzer 0 % (0-5); Platelet Count 230 K/mm3 (150-450); RBC Distribution Width CV 13.2 % (11.6-14.6); RBC Distribution Width SD 49.1 fl (35.1-43.9); Red Blood Count 2.59 M/mm3 (4.2-5.4); White Blood Count 6.6 K/mm3 (4.4-11.0)
[2025-01-25 08:21] LABS: AST(SGOT) 30 U/L (<=31); Alanine Aminotransfer ALT/SGPT 8 U/L (<=34); Albumin, Serum 3.5 g/dL (3.4-4.8); Alkaline Phosphatase 44 U/L (35-104); Anion Gap 3 (5-15); BUN 11 mg/dL (4-19); BUN/Creat Ratio 19.1 RATIO (10-20); Calcium,Total 8.5 mg/dL (7.6-11.0); Carbon Dioxide 43.7 mmol/L (21.0-32.0); Chloride 96 mmol/L (98-108); Estimated Creatinine Clearance 72.90 ml/min (50-250); Globulin 2.0 g/dL (2.2-4.2); Glucose 99 mg/dL (70-99); Potassium 4.2 mmol/L (3.3-5.1)
--- NOTE | 2025-01-25 11:02 | PN.HOSP_ITS ---
Subjective Subjective Hemoglobin continues to drop, will recheck this afternoon. Objective Data Objective Data Vital Signs: Vital Signs Temp Pulse Resp BP Pulse Ox O2 Del Method O2 Flow Rate 98.9 F 70 16 123/77 H 98 Nasal Cannula 4 01/25/25 07:49 01/25/25 08:50 01/25/25 07:49 01/25/25 07:49 01/25/25 07:49 01/25/25 07:49 01/25/25 07:49 Oxygen Flow Rate (L/min) 4 Oxygen Delivery Method Nasal Cannula Weight: 100 lb 4.965 oz Body Mass Index (BMI) 16.7 Intake & Output: Intake and Output for Last 24 Hours 01/24/25 01/25/25 01/26/25 03:59 03:59 03:59 Intake Total 600 / 600 100 / 100 Output Total 250 / 250 Balance 600 / 600 -150 / -150 Lab / Micro Data 01/25/25 06:38 01/25/25 06:38 Labs: Laboratory Results - last 24 hr 01/24/25 18:15: WBC 8.2, RBC 2.96 L, Hgb 8.7 L, Hct 31.0 L, MCV 104.7 H, MCH 29.4, MCHC 28.1 L, RDW Std Deviation 49.0 H, RDW Coeff of Sarah 12.8, Plt Count 295, MPV 9.5, Immature Gran % (Auto) 1.200 H, Neut % (Auto) 79.2 H, Lymph % (Auto) 8.1 L, [place] % (Auto) 10.4 H, Eos % (Auto) 0.6, Baso % (Auto) 0.5, Absolute Neuts (auto) 6.5, Absolute Lymphs (auto) 0.66 L, Nucleated RBC % 0, Sodium 141, Potassium 4.7, Chloride 92 L, Carbon Dioxide 44.1 H, Anion Gap 5, BUN 14, Creatinine 0.64 L, Estim Creat Clear Calc 68.55, Est GFR (MDRD) Non-Af 99, BUN/Creatinine Ratio 21.9 H, Glucose 123 H, Calcium 9.0, Total Creatine Kinase 133, Troponin T High Sens 22 H, Serum Folate 12.00 01/24/25 20:15: Urine Color Yellow, Urine Clarity Clear, Urine pH 7.0, Ur Specific [place] 1.010, Urine Protein 15 H, Urine Glucose (UA) Normal, Urine Ketones Negative, Urine Occult Blood Negative, Urine Nitrite Negative, Urine Bilirubin Negative, Urine Urobilinogen Normal, Ur Leukocyte Esterase Negative, Urine RBC 0 SEEN, Urine WBC 0-5 SEEN, Ur Squamous Epith Cells 0-5 SEEN, Urine Bacteria RARE, Urine Mucus 0 SEEN 01/24/25 20:37: Magnesium 2.1, Iron 16 L, TIBC 346, Iron Saturation 4.5 L, Unsaturated IBC 330, Ferritin 40, Troponin T Hi Sens 2 Hr 22 H 01/24/25 23:49: Total Creatine Kinase 163, Troponin T Hi Sens 4Hr 22 H, Vitamin B12 238 01/25/25 06:38: WBC 6.6, RBC 2.59 L, Hgb 7.6 L, Hct 26.3 L, MCV 101.5 H, MCH 29.3, MCHC 28.9 L, RDW Std Deviation 49.1 H, RDW Coeff of Sarah 13.2, Plt Count 230, MPV 9.5, Immature Gran % (Auto) 0.300, Neut % (Auto) 68.1, Lymph % (Auto) 15.8 L, [place] % (Auto) 14.8 H, Eos % (Auto) 0.5, Baso % (Auto) 0.5, Absolute Neuts (auto) 4.5, Absolute Lymphs (auto) 1.05, Nucleated RBC % 0, Sodium 143, Potassium 4.2, Chloride 96 L, Carbon Dioxide 43.7 H, Anion Gap 3 L, BUN 11, C reatinine 0.56 L, Estim Creat Clear Calc 72.90, Est GFR (MDRD) Non-Af 102, BUN/Creatinine Ratio 19.1, Glucose 99, Calcium 8.5, Phosphorus 2.3 L, Total Bilirubin 0.28, AST 30, ALT 8, Alkaline Phosphatase 44, Total Protein 5.5 L, Albumin 3.5, Globulin 2.0 L, Albumin/Globulin Ratio 1.7, TSH 1.070 Radiography Diagnostic Testing: Radiology Impression Chest X-Ray 01/24/25 19:10 IMPRESSION: Suggestion of COPD. Reading Location: [facility] Physical Exam Narrative General: Alert, Oriented x2, Cooperative, No apparent distress HEENT: Atraumatic, PERRLA, EOMI, Normocephalic Oral: Moist Mucosa Neck: Supple, No JVD Lungs: Diminished, Normal air movement, No rhonchi, No wheeze, No rales Cardiovascular: Regular rate, Regular Rhythm, Normal S1, Normal S2, No murmurs Abdomen: Soft, Non Tender, Non-Distended, No Hepato-splenomegaly Extremities: No edema, Capillary Refill Less than 3 Seconds Skin: No rashes, No breakdown Musculoskeletal: No Tenderness to Palpation of Joints or Extremities Neurological: No focal neurological deficits, moves all extremities Psych/Mental Status: Normal Affect, Appropriate Assessment & Plan Assessment/Plan (1) Generalized weakness: (2) Anemia: QUALIFIERS: Anemia type: unspecified type Qualified Code(s): D 64.9 - Anemia, unspecified PLAN: Plan 1. Generalized weakness and falls with shortness of breath secondary to anemia from likely GI bleed/GERD – She has been having dark stools for about 10 days – Will recheck hemoglobin this afternoon – Will transfuse if below 7, currently 7.6 – Hemoccult is pending however if her hemoglobin drops this afternoon will consult GI – Continue with PPI – PT/OT 2. Essential HTN – She states that she is not on Lasix anymore – Continue with metoprolol – Will monitor and make adjustments as necessary – She had an echo 08/19/2024 with an EF of 70% and a mildly dilated right ventricle 3. COPD – Not in exacerbation – Continue with her home inhalers DVT: SCDs Charges/Coding Visit Charges Inpatient E&M: 71635 Subs Hosp L2
[2025-01-25] MEDS: Sodium Ferric Gluconat/Sucrose 250 MG in 0.9% Normal Saline (250mL Bag) 250 ML 135 MG IV (11:30)
[2025-01-25 12:22] LABS: Hematocrit 26.4 % (37-47); Hemoglobin 7.5 g/dL (12.0-15.0)
--- NOTE | 2025-01-25 15:21 | CASEMGMT ---
ELIN FERNÁNDEZ Assessment: Face to Face with pt for initial transition planning/care coordination assessment. ELIN FERNÁNDEZ introduced self and role at [facility], pt voices understanding and consents to assessment.Pt very drowsy. Mother present in room and some questions answered by mother. Pt stated at times, she did not want to have a discussion with ELIN FERNÁNDEZ. Mother states pt is very "secretive". Care providers, pharmacy, and demographics verified/updated. Admitting Dx: generalized weakness and sob after fall with dark stools Strata Score: 2 PCP:Precious Specialists:kayla Lancaster; kayla Foley- Pt mother states pt does not keep her appts and has not been out of the home in quite a while. Preferred Pharmacy: [facility] Insurance: [facility] Prescription Benefit: yes LNOK: Ernestina Nice, mother Living Arrangements: Pt lives alone in a single story home with no steps to enter, just a threshold. Pt did not answer if she is able to bathe or dress herself indep. Pt mother states she does not think that she has in some time. Mother states that there is dry flaked skin within the home from pt. Mother states she brings pt meals. Pt would not discuss other IADLs. Transportation: Pt mother provides transportation for pt but states pt is "stubborn" when she comes to pick her up for appts and will not go most times. DME:O2 through [employer], cane HHC/SNF: Denies hx of Pt mother states that she hopes pt goes to a rehab facility for therapy. She states she was notified on Saturday that pt needed help, she went to the home and pt was face down and could not get up. She states she called the squad and they brought pt in. Pt states no further concerns/needs. CM to follow. Advised pt to ask CM if any further questions/concerns/needs arise, voices understanding. Pt Goal: Would not state Plan: TBD pending therapy, course of hospitalization [facility] [place] CM
--- NOTE | 2025-01-25 17:36 | CON.PCM.GI_ITS ---
HPI Consult Data Date of Consult: 01/25/25 HPI Narrative Reason for Consultation: Anemia HPI Narrative: SHYANN ENNIS, is a 64-year-old woman presenting to the Emergency Department (ED) with the chief complaints of fatigue and generalized weakness. She reports a chronic history of these symptoms, noting they have worsened recently. Due to her weakness, she reports a decreased ability to perform her normal activities of daily living. On chart review, the patient has a history of frequent hospital admissions for similar presentations of fatigue and decreased hemoglobin. * Chronic Obstructive Pulmonary Disease (COPD): The patient requires home oxygen therapy to manage her respiratory condition. * Alcohol Use: The patient reports consuming at least two alcoholic beverages per night. While she does not have a prior diagnosis of alcoholism, this quantity is significant and requires further investigation given the clinical picture. * Hepatic Lesions: She was evaluated by a Gastroenterology (GI) specialist approximately three months ago for new hepatic lesions. The results of that evaluation are not detailed in the provided information and require follow-up. * Anemia: She has a history of decreased hemoglobin, for which has been decreasing. [facility] Medical History Chronic hypercapnic respiratory failure Abdominal distention Cardiac dysrhythmia MVP (mitral valve prolapse) Migraines Bipolar disorder Anxiety Depression GERD (gastroesophageal reflux disease) CPAP (continuous positive airway pressure) dependence Sleep apnea Smoker Asthma Migraines COPD (chronic obstructive pulmonary disease) HTN (hypertension) Home Medications Medication Instructions Recorded Last Taken Type nebulizer accessories #1 ea 11/26/21 Unknown Rx acetaminophen 500 mg tablet 1,000 mg PO Q6H PRN pain 0 08/18/24 08/18/24 History albuterol sulfate 2.5 mg/3 mL 2.5 mg (3 mL) inhalation Q2H PRN 08/21/24 Unknown Rx (0.083 %) solution for nebulization Dyspnea, wheezing #75 mL furosemide 40 mg tablet 40 mg PO BIDLX #28 tabs 01/07 Unknown Rx hydroxyzine HCl 25 mg tablet 25 mg PO QHS PRN sleep #3 0 tabs 08/21/24 Unknown Rx ipratropium 0.5 mg-albuterol 3 mg 3 ml inhalation Q4H PRN COPD, 08/21/24 Unknown Rx (2.5 mg base)/3 mL nebulization exacerbation, hypoxia #90 mL soln lansoprazole 30 mg capsule,delayed 30 mg PO DAILY gerd #30 caps 08/21/24 Unknown Rx release metoprolol tartrate 25 mg tablet 12.5 mg (1/2 x 25 mg) PO BID heart 08/21/24 Unknown Rx #30 tabs linaclotide 290 mcg capsule 290 mcg PO QAM bowel movem ent #90 09/24/24 Unknown Rx (Linzess) caps polyethylene glycol 3350 17 17 g PO BID PRN Constipati on 09/24/24 Unknown History gram/dose oral powder (Miralax) Allergy/AdvReac Type Severity Reaction Status Date / Time Sulfa (Sulfonamide Allergy Intermediate Other Verified 01/24/25 18:17 Antibiotics) Latex, Natural Rubber Allergy Rash Verified 01/24/25 18:17 nabumetone AdvReac Intermediate Other Verified 01/24/25 18:17 meloxicam AdvReac Mild Nausea Verified 01/24/25 18:17 Family History Mother Heart disease Father Heart disease Surgical History History of tonsillectomy H/O shoulder surgery History of cholecystectomy Social History household members: none Smoking Status: Current every day smoker tobacco type: cigarettes Tobacco: How many years used: 45 alcohol intake: former details: Reports prior heavy EtOH abuse, notes she does not drink routinely, vague. substance use type: does not use ROS ROS Narrative Review of Systems: Constitutional: Patient denies fever or chills. Eyes: Patient denies change in vision or discharge from eyes. ENT: Patient denies runny nose, sore throat or ear pain. Resp: Patient admits to shortness of breath worsened after fall but she denies wheezing or cough. CV: Patient denies chest pain, palpitations, heart racing or lower extremity edema. GI: Patient denies abdominal pain, nausea, vomiting or diarrhea. : Patient denies dysuria or hematuria. MSK: Patient admits to generalized weakness after recent fall as per HPI. Skin: Patient denies rash, abscess, wounds or jaundice. Psych: Patient denies symptoms uncontrolled depression or anxiety. Neuro: Patient denies headache, paresthesias or focal neurologic deficits. Allergy: Patient denies lip swelling, tongue swelling or urticaria. Hematology: Patient denies easy bleeding or easy bruisability. Endocrinology: Patient denies polyuria, polydipsia, polyphagia or heat/cold intolerance. 14 point ROS otherwise negative except for positives noted above in HPI. Physical Exam Narrative General: Alert, Oriented x2, Cooperative, No apparent distress HEENT: Atraumatic, PERRLA, EOMI, Normocephalic Oral: Moist Mucosa Neck: Supple, No JVD Lungs: Diminished, Normal air movement, No rhonchi, No wheeze, No rales Cardiovascular: Regular rate, Regular Rhythm, Normal S1, Normal S2, No murmurs Abdomen: Soft, Non Tender, Non-Distended, No Hepato-splenomegaly Extremities: No edema, Capillary Refill Less than 3 Seconds Skin: No rashes, No breakdown Musculoskeletal: No Tenderness to Palpation of Joints or Extremities Neurological: No focal neurological deficits, moves all extremities Psych/Mental Status: Normal Affect, Appropriate Lab / Micro Data 01/25/25 11:57 01/25/25 06:38 Labs: Laboratory Results - last 24 hr 01/24/25 18:15: WBC 8.2, RBC 2.96 L, Hgb 8.7 L, Hct 31.0 L, MCV 104.7 H, MCH 29.4, MCHC 28.1 L, RDW Std Deviation 49.0 H, RDW Coeff of Sarah 12.8, Plt Count 295, MPV 9.5, Immature Gran % (Auto) 1.200 H, Neut % (Auto) 79.2 H, Lymph % (Auto) 8.1 L, [place] % (Auto) 10.4 H, Eos % (Auto) 0.6, Baso % (Auto) 0.5, Absolute Neuts (auto) 6.5, Absolute Lymphs (auto) 0.66 L, Nucleated RBC % 0, Sodium 141, Potassium 4.7, Chloride 92 L, Carbon Dioxide 44.1 H, Anion Gap 5, BUN 14, Creatinine 0.64 L, Estim Creat Clear Calc 68.55, Est GFR (MDRD) Non-Af 99, BUN/Creatinine Ratio 21.9 H, Glucose 123 H, Calcium 9.0, Total Creatine Kinase 133, Troponin T High Sens 22 H, Serum Folate 12.00 01/24/25 20:15: Urine Color Yellow, Urine Clarity Clear, Urine pH 7.0, Ur Specific [place] 1.010, Urine Protein 15 H, Urine Glucose (UA) Normal, Urine Ketones Negative, Urine Occult Blood Negative, Urine Nitrite Negative, Urine Bilirubin Negative, Urine Urobilinogen Normal, Ur Leukocyte Esterase Negative, Urine RBC 0 SEEN, Urine WBC 0-5 SEEN, Ur Squamous Epith Cells 0-5 SEEN, Urine Bacteria RARE, Urine Mucus 0 SEEN 01/24/25 20:37: Magnesium 2.1, Iron 16 L, TIBC 346, Iron Saturation 4.5 L, Unsaturated IBC 330, Ferritin 40, Troponin T Hi Sens 2 Hr 22 H 01/24/25 23:49: Total Creatine Kinase 163, Troponin T Hi Sens 4Hr 22 H, Vitamin B12 238 01/25/25 06:38: WBC 6.6, RBC 2.59 L, Hgb 7.6 L, Hct 26.3 L, MCV 101.5 H, MCH 29.3, MCHC 28.9 L, RDW Std Deviation 49.1 H, RDW Coeff of Sarah 13.2, Plt Count 230, MPV 9.5, Immature Gran % (Auto) 0.300, Neut % (Auto) 68.1, Lymph % (Auto) 15.8 L, [place] % (Auto) 14.8 H, Eos % (Auto) 0.5, Baso % (Auto) 0.5, Absolute Neuts (auto) 4.5, Absolute Lymphs (auto) 1.05, Nucleated RBC % 0, Sodium 143, Potassium 4.2, Chloride 96 L, Carbon Dioxide 43.7 H, Anion Gap 3 L, BUN 11, C reatinine 0.56 L, Estim Creat Clear Calc 72.90, Est GFR (MDRD) Non-Af 102, BUN/Creatinine Ratio 19.1, Glucose 99, Calcium 8.5, Phosphorus 2.3 L, Total Bilirubin 0.28, AST 30, ALT 8, Alkaline Phosphatase 44, Total Protein 5.5 L, Albumin 3.5, Globulin 2.0 L, Albumin/Globulin Ratio 1.7, TSH 1.070 01/25/25 11:57: Hgb 7.5 L, Hct 26.4 L Micro: Microbiology 01/25/25 16:50 Stool Stool Occult Blood (ANT) - Final Occult Blood Positive Imaging Radiology Impression Chest X-Ray 01/24/25 19:10 IMPRESSION: Suggestion of COPD. Reading Location: [facility] Assessment & Plan Assessment/Plan (1) Anemia: QUALIFIERS: Anemia type: unspecified type Qualified Code(s): D 64.9 - Anemia, unspecified (2) Dark stools: PLAN: Plan 64-year-old woman with a history of COPD and significant alcohol use who presents with worsening fatigue and macrocytic anemia. The macrocytic anemia likely stems from several potential factors given her history: * Alcohol use: Heavy alcohol consumption is a known cause of macrocytic anemia. * Hepatic dysfunction: Chronic alcohol use combined with hepatic lesions raises suspicion for underlying liver disease, which can lead to macrocytic anemia. * Nutritional deficiencies: The patient's low BMI suggests poor nutritional intake, potentially leading to vitamin B12 or folate deficiency, which are classic causes of macrocytic anemia. * Chronic disease: Her COPD is a chronic illness that can contribute to anemia of chronic disease. The hepatic lesions discovered three months ago are of particular concern and may be related to the patient's alcohol use and current presentation. The frequent hospitalizations for anemia suggest an ongoing, uncontrolled, or undiagnosed underlying condition. Plan * Diagnostic: * Repeat CBC with differential, MCV, and red cell distribution width (RDW). * Order a complete metabolic panel (CMP), including liver function tests. * Assess for nutritional deficiencies by ordering vitamin B12, folate, and ferritin levels. * EGD to look for signs of acute on chronic anemia along with signs of chronic liver disease. * Consider a nutritional consult to address the low BMI and rule out malabsorption. * Therapeutic: * Treat the patient symptomatically while awaiting further diagnostic results. * Address the underlying cause of the macrocytic anemia once diagnosed (e.g., supplement vitamin B12 or folate if deficient). * Encourage cessation of alcohol consumption. Provide counseling and resources for alcohol use disorder if appropriate. Charges/Coding Visit Charges Inpatient E&M: 84044 Init Hosp L3
[2025-01-25] MEDS: 0.9% Normal Saline (250mL Bag) 250 ML 15 ML IV (22:12)
[2025-01-26] VITALS (14 sets, daily range): BP systolic 91–115; BP diastolic 67–80; PULSE 82–106; RESP 16–20; TEMP 36.7–37.2; O2SAT 88–100; BMI 16.7; BMI 16.6
[2025-01-26 05:41] LABS: Hematocrit 25.5 % (37-47); Hemoglobin 7.4 g/dL (12.0-15.0); Immature Granulocytes Count 0.030 X10^3/uL (0.0-0.0); Mean Corp Hgb Conc 29.0 g/dL (32-36); Mean Corpuscular Volume 100.8 fL (81-99); Mean Platelet Vol. 9.1 fl (6.2-12.0); NRBC Flagged by Analyzer 0 % (0-5); Platelet Count 216 K/mm3 (150-450); RBC Distribution Width CV 13.2 % (11.6-14.6); RBC Distribution Width SD 48.7 fl (35.1-43.9); Red Blood Count 2.53 M/mm3 (4.2-5.4); White Blood Count 6.0 K/mm3 (4.4-11.0)
[2025-01-26 05:53] LABS: Prothrombin Time (Protime)PT. 13.0 SECONDS (11.7-14.9)
[2025-01-26 05:54] LABS: Partial Thromboplast Time 34.8 Seconds (24.1-36.2)
[2025-01-26 06:14] LABS: Anion Gap 5 (5-15); BUN 8 mg/dL (4-19); BUN/Creat Ratio 16.3 RATIO (10-20); Calcium,Total 8.3 mg/dL (7.6-11.0); Carbon Dioxide 42.3 mmol/L (21.0-32.0); Chloride 97 mmol/L (98-108); Estimated Creatinine Clearance 83.13 ml/min (50-250); Glucose 84 mg/dL (70-99); Potassium 3.9 mmol/L (3.3-5.1)
[2025-01-26] MEDS: Pantoprazole Sodium 40 MG in 0.9% Normal Saline (100mL MB+) 100 ML 330 MG IV ×2 (08:49→21:33)
[2025-01-26] MEDS: FLU VACCINE 2025-26(6MOS UP) 45 MCG/0.5 ML SYRINGE IM (08:59)
--- NOTE | 2025-01-26 10:34 | PCM.PN.HOSP ---
Subjective Subjective Hemoccult came back positive, will consult GI continue with PPI. Currently n.p.o. Objective Data Objective Data Vital Signs: Vital Signs Temp Pulse Resp BP Pulse Ox O2 Del Method O2 Flow Rate 98.1 F 82 18 109/71 100 Nasal Cannula 4 01/26/25 09:18 01/26/25 09:18 01/26/25 09:18 01/26/25 09:18 01/26/25 09:18 01/26/25 09:18 01/26/25 07:12 Oxygen Flow Rate (L/min) 4 Oxygen Delivery Method Nasal Cannula Weight: 100 lb 1.438 oz Body Mass Index (BMI) 16.7 Intake & Output: Intake and Output for Last 24 Hours 01/25/25 01/26/25 01/27/25 03:59 03:59 03:59 Intake Total 600 / 600 1567.5 / 1567.5 231.25 / 231.25 Output Total 600 / 600 350 / 350 Balance 600 / 600 967.5 / 967.5 -118.75 / -118.75 Lab / Micro Data 01/26/25 05:30 01/26/25 05:30 Labs: Laboratory Results - last 24 hr 01/25/25 11:57: Hgb 7.5 L, Hct 26.4 L 01/26/25 05:30: WBC 6.0, RBC 2.53 L, Hgb 7.4 L, Hct 25.5 L, MCV 100.8 H, MCH 29.2, MCHC 29.0 L, RDW Std Deviation 48.7 H, RDW Coeff of Sarah 13.2, Plt Count 216, MPV 9.1, Immature Gran % (Auto) 0.500, Neut % (Auto) 68.1, Lymph % (Auto) 14.1 L, [place] % (Auto) 15.8 H, Eos % (Auto) 1.2, Baso % (Auto) 0.3, Absolute Neuts (auto) 4.1, Absolute Lymphs (auto) 0.85, Nucleated RBC % 0, PT 13.0, INR 1.0, APTT 34.8, Sodium 144, Potassium 3.9, Chloride 97 L, Carbon Dioxide 42.3 H, Anion Gap 5, BUN 8, Creatinine 0.49 L, Estim Creat Clear Calc 83.13, Est GFR (MDRD) Non-Af 105, BUN/Creatinine Ratio 16.3, Glucose 84, Calcium 8.3 Micro: Microbiology 01/25/25 16:50 Stool Stool Occult Blood (ANT) - Final Occult Blood Positive Physical Exam Narrative General: Alert, Oriented x2, Cooperative, No apparent distress HEENT: Atraumatic, PERRLA, EOMI, Normocephalic Oral: Moist Mucosa Neck: Supple, No JVD Lungs: Diminished, Normal air movement, No rhonchi, No wheeze, No rales Cardiovascular: Regular rate, Regular Rhythm, Normal S1, Normal S2, No murmurs Abdomen: Soft, Non Tender, Non-Distended, No Hepato-splenomegaly Extremities: No edema, Capillary Refill Less than 3 Seconds Skin: No rashes, No breakdown Musculoskeletal: No Tenderness to Palpation of Joints or Extremities Neurological: No focal neurological deficits, moves all extremities Psych/Mental Status: Normal Affect, Appropriate Assessment & Plan Assessment/Plan (1) Generalized weakness: (2) Anemia: QUALIFIERS: Anemia type: unspecified type Qualified Code(s): D64.9 - Anemia, unspecified PLAN: Plan 1. Generalized weakness and falls with shortness of breath secondary to anemia from likely GI bleed as well as iron deficiency and low vitamin B12/GERD – She has been having dark stools for about 10 days – Hemoccult is positive – Hemoglobin has stabilized at 7.4 today – Consult GI for EGD – Continue with PPI – PT/OT – Her B12 level is borderline at 238 and her iron studies demonstrated an iron deficiency component therefore she was given a dose of IV iron yesterday will repeat again today. Will start her on B12 as well 2. Essential HTN – She states that she is not on Lasix anymore – Continue with metoprolol – Will monitor and make adjustments as necessary – She had an echo 08/19/2024 with an EF of 70% and a mildly dilated right ventricle 3. COPD – Not in exacerbation – Continue with her home inhalers DVT: SCDs Charges/Coding Visit Charges Inpatient E&M: 10332 Subs Hosp L2
[2025-01-26] MEDS: Sodium Ferric Gluconat/Sucrose 250 MG in 0.9% Normal Saline (250mL Bag) 250 ML 135 MG IV (11:44)
--- NOTE | 2025-01-26 15:07 | CASEMGMT ---
Addendum entered by Virgen Nicole 01/26/25 16:10: Per [facility], they do not take [facility]. Requested dc culinary assistant send referral to [facility]. Addendum entered by Virgen Nicole 01/26/25 16:08: ELIN FERNÁNDEZ into pt room, pt states she has chosen 1. [facility] 2. [facility] 3. [facility]. Referral sent to [facility] at this time. Addendum entered by Virgen Nicole 01/26/25 15:30: Provided pt with a list of SNFs created by DC culinary assistant. Pt and mother to review. ELIN FERNÁNDEZ to check back on choices. Original Note: Noted therapy evals. ELIN FERNÁNDEZ into pt room, pt sitting up in chair with mother at bedside awaiting to be taken for scope. Discussed dc planning with pt. Pt states she wants to go home but does not feel like she can care for herself currently. Pt mother reiterates to pt that she cannot be with her all of the time. Pt states she would not allow anyone in her home for care other than her mother. Discussed option of SNF. Pt mother encourages pt to pick this option if she wants to return home and be independent. Pt mother and pt speak in terms of what is best for fastest recovery. Pt agreeable to SNF at this point but asks if the plan can change. Pt aware that it can. Requested SNF list from dc culinary assistant.
--- NOTE | 2025-01-26 15:21 | CASEMGMT ---
Discharge Planning A list of SNF providers including quality and resource use data and consistent with the patient's preferred geographic region, medical needs, and insurance network was created in [facility] Guide. This list was provided to the RN CM. Celena Oneal, Discharge Planning Asst.
--- NOTE | 2025-01-26 16:30 | CASEMGMT ---
Addendum entered by Celena Oneal 01/27/25 08:13: [facility] has accepted and will submit for precert. SW updated. Celena Oneal DC Planning Asst. Original Note: Discharge Planning Referral sent via [facility]port to [facility]. Celena Oneal DC Planning Asst.
[2025-01-26] MEDS: Albuterol 2.5 MG/3 ML VIAL.NEB. INHALATION (16:38)
[2025-01-26] MEDS: Lactated Ringers 1,000 ML 15 ML IV (17:18)
--- NOTE | 2025-01-26 17:29 | PCM.PRE.AN2 ---
ASA Classification* ASA Classification ASA Classification: 3 Assessment & Plan Anesthesia* Anesthesia Assessment Anesthesia Assessment: Discussed sedation and/or anesthesia options, risks, benefits, and alternatives with patient/parents/legal guardian/POA. Questions invited. The patient/parents/legal guardian/POA seems to understand and agrees to proceed with anesthesia plan. Reviewed the physical assessment, medical history, allergy history and patient home medications list prior to surgery/procedure/anesthetic and documented any changes. Performed airway and anesthesia risk assessments. Anesthesia Type Anesthesia Type: MAC History Source History Obtained from:: Patient and Chart Anesthesia Focused Assessment* Temperature: 98.2 F Pulse Rate: 95 Blood Pressure: 97/67 Respiratory Rate: 16 Pulse Ox: 98 Oxygen Delivery Method: Nasal Cannula Oxygen Flow Rate (L/min): 4 Airway Assessment Mouth opens: >3 cm Mallampati Score: IV Teeth Condition: Missing (Patient is edentulous.) Neck Range of motion (ROM): Limited ROM (Somewhat Decreased) Labs Anesthesia Preop lab: CBC WBC, (4.4-11.0) 6.0 K/mm3 Today, 05:30 RBC, (4.2-5.4) 2.53 M/mm3 L Today, 05:30 Hgb, (12.0-15.0) 7.4 g/dL L Today, 05:30 Hct, (37-47) 25.5 % L Today, 05:30 Plt Count, (150-450) 216 K/mm3 Today, 05:30 CHEMISTRY Potassium, (3.3-5.1) 3.9 mmol/L Today, 05:30 Sodium, (133-145) 144 mmol/L Today, 05:30 Magnesium, (1.5-2.2) 2.1 mg/dL 01/24/25, 20:37 Phosphorus, (2.7-4.5) 2.3 mg/dL L 01/25/25, 06:38 BUN, (4-19) 8 mg/dL Today, 05:30 Creatinine, (0.70-1.20) 0.49 mg/dL L Today, 05:30 Glucose, (70-99) 84 mg/dL Today, 05:30 POC Glucose, (70-110) 114 mg/dL H 11/19/17, 12:05 TSH, (0.300-4.200) 1.070 uIU/mL 01/25/25, 06:38 COAG PT, (11.7-14.9) 13.0 SECONDS Today, 05:30 Pre-Assessment Diagnosis/Proposed Procedure Planned Operative Procedure(s): EGD Anesthesia History Anesthesia History - rn occupational: Anesthesia History - rn occupational Hx Hospitalization No 06/16/24 11:18 Any Problems With Anesthesia No 01/26/25 10:49 Cholinesterase deficiency You/Your Family Experience No 01/26/25 10:49 fever (hyperthermia) with Relationship Recent Exposure to Contagious No 01/26/25 10:49 Disease Does patient have nerve No 01/26/25 10:49 stimulator Patient instructed to have device shut off --Does patient have Pacemaker No 01/26/25 10:49 or ICD? When Was Last Pacemaker Check QUESTION #4 FULL TEXT: You/Your Family Experience fever (hyperthermia) with Anesthesia Last Oral Intake Last Oral intake: Last Oral Intake NPO since 00:00 01/26/25 10:49 Meds taken in AM with sips of No 01/26/25 10:49 water? Meds patient instructed to take am of surgery PONV PONV - rn occupational: PONV - rn occupational Female HX of Motion Sickness HX of N/V After Surgery Non-Smoker Duration of Surgery greater than 60 minutes Number of Risk Factors PONV Score Height & Weight Height & Weight: Anesthesia: Height & Weight Height 5 ft 5 in 01/26/25 15:17 Weight: 45.5 kg 01/26/25 15:17 Body Mass Index (BMI) 16.6 01/26/25 10:49 Respiratory Assessment Respiratory Assessment - rn occupational: Respiratory Tract Infection Hx - rn occupational Hx Respiratory Tract Infection No 01/26/25 10:49 STOP Sleep Apnea STOP Sleep Apnea - rn occupational: STOP Sleep Apnea - rn occupational Hx Hypertension No 01/26/25 14:27 Hx Sleep Apnea Yes 01/25/25 00:17 CPAP Yes 01/25/25 00:17 BIPAP No 01/25/25 00:17 Do you snore loudly (louder than talking or can be heard Do you often feel tired/ fatigued/ sleepy during daytime? Has anyone observed you stop breathing during sleep? STOP Results Positive 01/25/25 00:17 QUESTION #5 FULL TEXT : Do you snore loudly (louder than talking or can be heard through closed doors)? 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 Specify any problems Hx of Preganancy in last 3 No 01/25/25 00:17 Months Nurse Filling Out Transfusion DREDICK 01/25/25 00:17 & Questions: Date: 01/25/25 01/25/25 00:17 Time: 00:18 01/25/25 00:17 Patient unable to answer at this time (ie. confused, unrespo /Reproduction History /Reproductive History - rn occupational: /Reproductive Hx- rn occupational Hx Now No 01/26/25 10:49 Gestational Age (in weeks): EDC: Hx Hx Para Hx Section SAB No 01/26/25 10:49 Active Medications Active Medications: Current Medications Generic Name Dose Route Start Last Admin Trade Name Freq PRN Reason Stop Dose Admin Acetaminophen 650 mg 01/25/25 00:09 Acetaminophen 650 Mg Suppository RC Q6H PRN PRN Pain 1-5/10 or Fever Acetaminophen 650 mg 01/25/25 17:25 01/25/25 17:33 Acetaminophen 325 Mg Tablet PO 650 mg Q6H PRN PRN Administration Pain 1-10 or Fever Albuterol Sulfate 2.5 mg 01/25/25 00:09 01/26/25 16:38 Albuterol 2.5 Mg/3 Ml Vial.Neb. INHALATION 2.5 mg Q2H PRN PRN Administration Dyspnea, wheezing Albuterol/Ipratropium 3 ml 01/25/25 00:09 01/26/25 13:13 Ipratropium/Albuterol Sulfate 3 Ml Ampul.Neb INHALATION 3 ml Q4H PRN PRN Administration COPD exacerbation, hypoxia Calamine/Phenol 1 applic 01/25/25 10:00 01/26/25 08:49 Menthol/Lanolin/Calamine/Znox 113 Gm Tube TOPICAL 1 applic BID KYRA Administration Protocol Cyanocobalamin 1,000 mcg 01/26/25 08:00 01/26/25 08:49 Cyanocobalamin 500 Mcg Tablet PO Not Given BREAKFAST KYRA Hydralazine HCl 5 mg 01/25/25 00:09 Hydralazine 20 Mg/Ml Vial IV Q8H PRN PRN SBP GREATER THAN 160 Protocol Pantoprazole Sodium 40 mg/ 100 mls @ 330 mls/hr 01/25/25 00:09 01/26/25 09:20 Sodium Chloride IV Infused BID KYRA Infusion Sodium Chloride 250 mls @ 15 mls/hr 01/25/25 00:11 01/26/25 16:11 IV 0 mls/hr .[id number] PRN Infusion Saline Flush Sodium Chloride 250 mls @ 15 mls/hr 01/25/25 00:11 IV .[id number] PRN Additional IVPB Infusion Lactated Ringer's 1,000 mls @ 15 mls/hr 01/26/25 17:15 01/26/25 17:18 IV 15 mls/hr .Q48H KYRA Administration Morphine Sulfate 2 mg 01/25/25 00:09 Morphine 2 Mg/Ml Syringe IV Q4H PRN PRN Pain Score 6-10 Ondansetron HCl 4 mg 01/25/25 00:09 Ondansetron 4 Mg/2 Ml Vial IV Q8H PRN PRN NAUSEA/VOMITING Sodium Chloride 10 - 40 ml 01/25/25 00:11 0.9% Saline Lock 10 Ml Syringe IV UD PRN SALINE FLUSH PFSH Medical History (Updated 01/26/25 @ 17:[address] Mayur Busby MD) On home O2 Chronic hypercapnic respiratory failure Abdominal distention Cardiac dysrhythmia MVP (mitral valve prolapse) Migraines Bipolar disorder Anxiety Depression GERD (gastroesophageal reflux disease) CPAP (continuous positive airway pressure) dependence Sleep apnea Smoker Asthma Migraines COPD (chronic obstructive pulmonary disease) HTN (hypertension) Home Medications Medication Instructions Recorded Last Taken Type nebulizer accessories #1 ea 11/26/21 Unknown Rx acetaminophen 500 mg tablet 1,000 mg PO Q6H PRN pain 08/18/24 08/18/24 History albuterol sulfate 2.5 mg/3 mL 2.5 mg (3 mL) inhalation Q2H PRN 08/21/24 Unknown Rx (0.083 %) solution for nebulization Dyspnea, wheezing #75 mL furosemide 40 mg tablet 40 mg PO BIDLX #28 tabs 08/21/24 Unknown Rx hydroxyzine HCl 25 mg tablet 25 mg PO QHS PRN sleep #30 tabs 08/21/24 Unknown Rx ipratropium 0.5 mg-albuterol 3 mg 3 ml inhalation Q4H PRN COPD, 08/21/24 Unknown Rx (2.5 mg base)/3 mL nebulization exacerbation, hypoxia #90 mL soln lansoprazole 30 mg capsule,delayed 30 mg PO DAILY gerd #30 caps 08/21/24 Unknown Rx release metoprolol tartrate 25 mg tablet 12.5 mg (1/2 x 25 mg) PO BID heart 08/21/24 Unknown Rx #30 tabs linaclotide 290 mcg capsule 290 mcg PO QAM bowel movement #90 09/24/24 Unknown Rx (Linzess) caps polyethylene glycol 3350 17 17 g PO BID PRN Constipation 09/24/24 Unknown History gram/dose oral powder (Miralax) Allergy/AdvReac Type Severity Reaction Status Date / Time Sulfa (Sulfonamide Allergy Intermediate Other Verified 01/24/25 18:17 Antibiotics) Latex, Natural Rubber Allergy Rash Verified 01/24/25 18:17 nabumetone AdvReac Intermediate Other Verified 01/24/25 18:17 meloxicam AdvReac Mild Nausea Verified 01/24/25 18:17 Family History Mother Heart disease Father Heart disease Surgical History History of tonsillectomy H/O shoulder surgery History of cholecystectomy Social History household members: none Smoking Status: Current every day smoker tobacco type: cigarettes Tobacco: How many years used: 45 alcohol intake: former details: Reports prior heavy EtOH abuse, notes she does not drink routinely, vague. substance use type: does not use Review of Systems (Anesthesia) ROS Narrative System reviewed and no additional complaints, except as documented.
--- NOTE | 2025-01-26 18:44 | PCM.POST.ANE ---
Anesthesia: Postop Eval I Current Vital Signs Temperature: 98.9 F Pulse Rate: 103 Blood Pressure: 108/78 Respiratory Rate: 16 Pulse Ox: 91 Oxygen Delivery Method: Nasal Cannula Oxygen Flow Rate (L/min): 4 Assessment Airway patent: Yes Spontaneous unlabored respirations: Yes Mental status: Awake and Calm (Patient tends to ramble.) nausea: No Vomiting: No Anesthesia Complication: No Fluid Hydration Crystalloid volume administer (ml): 200 Total IV fluid infused: 200 Progress Note Anesthesia document: Postop Eval 1 completed: Yes
--- NOTE | 2025-01-26 18:54 | OP.PROVAT_ITS ---
01/26/2025 Jose Carlos Lang MD Re : Upper GI endoscopy procedure for Bonny Nice Dear Dr. Lang This procedure was performed on Sunday, January 26, 2025. My impressions and recommendations are as follows: Impressions : - Normal esophagus. - Normal stomach. - Normal examined duodenum. - No specimens collected. Recommendations : - [facility]. - Advance diet as tolerated. - Continue present medications. My findings are described in the full procedure note, which is enclosed. If I can be of further assistance, please feel free to contact me at . Sincerely, Matt Rodriguez, 01/26/2025 6:53:29 PM This report has been signed electronically.
--- NOTE | 2025-01-26 18:54 | OP.EGD_ITS ---
Patient Name: Bonny Nice Procedure Date: 01/26/2025 6:17 PM Date of : 1960 Age: 64 Procedure: Upper GI endoscopy Indications: Iron deficiency anemia Providers: Matt Rodriguez DO Medicines: Monitored Anesthesia Care Patient Profile: This is a 64 year old female. Refer to note in patient chart for documentation of history and physical. Complications: No immediate complications. Procedure: Pre-Anesthesia Assessment: - Prior to the procedure, a History and Physical was performed, and patient medications and allergies were reviewed. The patient is competent. The risks and benefits of the procedure and the sedation options and risks were discussed with the patient. All questions were answered and informed consent was obtained. Patient identification and proposed procedure were verified by the physician in the pre-procedure area. Mental Status Examination: alert and oriented. Airway Examination: normal oropharyngeal airway and neck mobility. Respiratory Examination: clear to auscultation. CV Examination: normal. ASA Grade Assessment: II - A patient with mild systemic disease. After reviewing the risks and benefits, the patient was deemed in satisfactory condition to undergo the procedure. The anesthesia plan was to use monitored anesthesia care (MAC). Immediately prior to administration of medications, the patient was re-assessed for adequacy to receive sedatives. The heart rate, respiratory rate, oxygen saturations, blood pressure, adequacy of pulmonary ventilation, and response to care were monitored throughout the procedure. The physical status of the patient was re-assessed after the procedure. After obtaining informed consent, the endoscope was passed under direct vision. Throughout the procedure, the patient's blood pressure, pulse, and oxygen saturations were monitored continuously. The Endoscope was introduced through the mouth, and advanced to the fourth part of the duodenum. Small bowel enteroscopy was deemed necessary. The upper GI endoscopy was accomplished without difficulty. The patient tolerated the procedure well. Scope In: 6:33:41 PM Scope Out: 6:35:35 PM Total Procedure Duration Time 0 hours 1 minute 54 seconds Findings: The examined esophagus was normal. The entire examined stomach was normal. The examined duodenum was normal. A medium-sized hiatal hernia was present. Impression: - Normal esophagus. - Normal stomach. - Normal examined duodenum. - No specimens collected. Recommendation: - [facility]. - Advance diet as tolerated. - Continue present medications. Procedure Code(s): --- Professional --- 09724, Small intestinal endoscopy, enteroscopy beyond second portion of duodenum, not including ileum; diagnostic, including collection of specimen(s) by brushing or washing, when performed (separate procedure) CPT copyright 2021 [employer]. All rights reserved. The codes documented in this report are preliminary and upon project management analyst review may be revised to meet current compliance requirements. Matt Rodriguez DO 01/26/2025 6:53:29 PM This report has been signed electronically. Number of Addenda: 0 Note Initiated On: 01/26/2025 6:17 PM
--- NOTE | 2025-01-26 19:05 | SUR.PHASEI ---
CALLED FOR TRANSPORT BACK TO [facility]
--- NOTE | 2025-01-26 19:20 | PCM.POSTANE2 ---
Anesthesia Postop Eval I Sum Postop Eval Completion status Anesthesia document: Postop Eval 1 completed: Yes Anesthesia Postop Eval I Summary Anesthesia Postop Eval I Summary: Anesthesia Postop Eval I: Assessment Summary Airway patent Yes 01/26/25 18:46 Spontaneous unlabored Yes 01/26/25 18:46 respirations Mental status Awake,Calm - 01/26/25 18:46 Patient tends to ramble. nausea No 01/26/25 18:46 Vomiting No 01/26/25 18:46 Anesthesia Postop Eval I: Fluid Summary Crystalloid volume administer 200 01/26/25 18:46 (ml) Colloids volume administered ( ml) Blood Product volume administered (ml) Total IV fluid infused 200 01/26/25 18:46 Anesthesia Postop Eval I: Summary Notes Anesthesia Complication No 01/26/25 18:46 Anesthesia Complication Comment: Post-operative progress note Anesthesia: Postop Eval II Evaluation Mental status: Asleep Pain Level: 0 nausea: No Vomiting: No Progress Note Post-operative progress note: Patient sats in the 80s even on 6 L of oxygen. Nebulizer breathing treatment given in PACU. Patient saturations improved significantly to the 90s. Complications Anesthesia Complication: No
[2025-01-26] MEDS: Electrolyte Solution/Peg's 4000 ML PO (21:27)
[2025-01-27] VITALS (24 sets, daily range): BP systolic 96–138; BP diastolic 74–89; PULSE 76–104; RESP 16–18; TEMP 36.4–37.1; O2SAT 93–100; BMI 18.2; BMI 18.1
[2025-01-27 06:38] LABS: Hematocrit 25.6 % (37-47); Hemoglobin 7.4 g/dL (12.0-15.0); Immature Granulocytes Count 0.050 X10^3/uL (0.0-0.0); Mean Corp Hgb Conc 28.9 g/dL (32-36); Mean Corpuscular Volume 100.4 fL (81-99); Mean Platelet Vol. 9.5 fl (6.2-12.0); NRBC Flagged by Analyzer 0.2 % (0-5); Platelet Count 229 K/mm3 (150-450); RBC Distribution Width CV 13.5 % (11.6-14.6); RBC Distribution Width SD 49.8 fl (35.1-43.9); Red Blood Count 2.55 M/mm3 (4.2-5.4); White Blood Count 8.0 K/mm3 (4.4-11.0)
[2025-01-27 07:06] LABS: Anion Gap 4 (5-15); BUN 7 mg/dL (4-19); BUN/Creat Ratio 13.3 RATIO (10-20); Calcium,Total 8.5 mg/dL (7.6-11.0); Carbon Dioxide 43.1 mmol/L (21.0-32.0); Chloride 98 mmol/L (98-108); Estimated Creatinine Clearance 87.26 ml/min (50-250); Glucose 96 mg/dL (70-99); Potassium 3.6 mmol/L (3.3-5.1)
--- NOTE | 2025-01-27 09:26 | PN.HOSP_ITS ---
Subjective Subjective EGD yesterday was unremarkable currently being prepped for colonoscopy today Objective Data Objective Data Vital Signs: Vital Signs Temp Pulse Resp BP Pulse Ox O2 Del Method O2 Flow Rate 98.3 F 104 H 16 110/78 96 Nasal Cannula 4 01/27/25 08:36 01/27/25 08:36 01/27/25 08:36 01/27/25 08:36 01/27/25 08:36 01/27/25 08:51 01/27/25 08:36 Oxygen Flow Rate (L/min) 4 Oxygen Delivery Method Nasal Cannula Weight: 109 lb 5.588 oz Body Mass Index (BMI) 18.2 Intake & Output: Intake and Output for Last 24 Hours 01/26/25 01/27/25 01/28/25 03:59 03:59 03:59 Intake Total 1567.5 / 1567.5 813.75 / 813.75 Output Total 600 / 600 350 / 350 Balance 967.5 / 967.5 463.75 / 463.75 Lab / Micro Data 01/27/25 06:12 01/27/25 06:12 Labs: Laboratory Results - last 24 hr 01/27/25 06:12: WBC 8.0, RBC 2.55 L, Hgb 7.4 L, Hct 25.6 L, MCV 100.4 H, MCH 29.0, MCHC 28.9 L, RDW Std Deviation 49.8 H, RDW Coeff of Sarah 13.5, Plt Count 229, MPV 9.5, Immature Gran % (Auto) 0.600, Neut % (Auto) 73.0 H, Lymph % (Auto) 10.1 L, Harmon % (Auto) 15.1 H, Eos % (Auto) 1.0, Baso % (Auto) 0.2, Absolute Neuts (auto) 5.9, Absolute Lymphs (auto) 0.81 L, Nucleated RBC % 0.2, Sodium 146 H, Potassium 3.6, Chloride 98, Carbon Dioxide 43.1 H, Anion Gap 4 L, BUN 7, C reatinine 0.51 L, Estim Creat Clear Calc 87.26, Est GFR (MDRD) Non-Af 104, BUN/Creatinine Ratio 13.3, Glucose 96, Calcium 8.5 Micro: Microbiology 01/25/25 16:50 Stool Stool Occult Blood (ANT) - Final Occult Blood Positive Physical Exam Narrative General: Resting, oriented x2, Cooperative, No apparent distress HEENT: Atraumatic, PERRLA, EOMI, Normocephalic Oral: Moist Mucosa Neck: Supple, No JVD Lungs: Diminished, Normal air movement, No rhonchi, No wheeze, No rales Cardiovascular: Regular rate, Regular Rhythm, Normal S1, Normal S2, No murmurs Abdomen: Soft, Non Tender, Non-Distended, No Hepato-splenomegaly Extremities: No edema, Capillary Refill Less than 3 Seconds Skin: No rashes, No breakdown Musculoskeletal: No Tenderness to Palpation of Joints or Extremities Neurological: No focal neurological deficits, moves all extremities Psych/Mental Status: Normal Affect, Appropriate Assessment & Plan Assessment/Plan (1) Generalized weakness: (2) Anemia: QUALIFIERS: Anemia type: unspecified type Qualified Code(s): D 64.9 - Anemia, unspecified PLAN: Plan 1. Generalized weakness and falls with shortness of breath secondary to anemia from likely GI bleed as well as iron deficiency and low vitamin B12/GERD – She has been having dark stools for about 10 days – Hemoccult is positive – Hemoglobin has stabilized at 7.4 today – Appreciate GI assistance, EGD was unremarkable proceeding with prep for colonoscopy today – Continue with PPI – PT/OT –Will proceed with another dose of IV iron today and then transition her to oral when she can take p.o. Will also provide her with an IM vitamin B12 as well and then she can resume her oral medications when able 2. Essential HTN – She states that she is not on Lasix anymore – Continue with metoprolol – Will monitor and make adjustments as necessary – She had an echo 08/19/2024 with an EF of 70% and a mildly dilated right ventricle 3. COPD – Not in exacerbation – Continue with her home inhalers DVT: SCDs Charges/Coding Visit Charges Inpatient E&M: 95175 Subs Hosp L2
[2025-01-27] MEDS: Pantoprazole Sodium 40 MG in 0.9% Normal Saline (100mL MB+) 100 ML 330 MG IV ×2 (10:15→21:19)
[2025-01-27] MEDS: Sodium Ferric Gluconat/Sucrose 125 MG in 0.9% Normal Saline (100mL Bag) 100 ML 110 MG IV (11:01)
[2025-01-27] MEDS: Cyanocobalamin (B12) 1,000 MCG/ML Vial 1000 MCG IM (11:01)
[2025-01-27] MEDS: 0.9% Saline Lock 10 ML Syringe IV (11:02)
[2025-01-27] MEDS: 0.9% Normal Saline (250mL Bag) 250 ML 15 ML IV (11:02)
[2025-01-27] MEDS: Lactated Ringers 1,000 ML 15 ML IV (12:48)
--- NOTE | 2025-01-27 13:13 | PCM.PRE.AN2 ---
ASA Classification* ASA Classification ASA Classification: 3 and E Assessment & Plan Anesthesia* Anesthesia Assessment Anesthesia Assessment: Discussed sedation and/or anesthesia options, risks, benefits, and alternatives with patient/parents/legal guardian/POA. Questions invited. The patient/parents/legal guardian/POA seems to understand and agrees to proceed with anesthesia plan. Reviewed the physical assessment, medical history, allergy history and patient home medications list prior to surgery/procedure/anesthetic and documented any changes. Performed airway and anesthesia risk assessments. Anesthesia Type Anesthesia Type: MAC History Source History Obtained from:: Patient and Chart Anesthesia Focused Assessment* Temperature: 98.4 F Pulse Rate: 84 Blood Pressure: 96/75 Respiratory Rate: 16 Pulse Ox: 93 Oxygen Delivery Method: Nasal Cannula Oxygen Flow Rate (L/min): 4 Airway Assessment Mouth opens: >3 cm Mallampati Score: II Teeth Condition: Dentures (Edentulous) Neck Range of motion (ROM): Limited ROM Labs Anesthesia Preop lab: CBC WBC, (4.4-11.0) 8.0 K/mm3 Today, 06:12 RBC, (4.2-5.4) 2.55 M/mm3 L Today, 06:12 Hgb, (12.0-15.0) 7.4 g/dL L Today, 06:12 Hct, (37-47) 25.6 % L Today, 06:12 Plt Count, (150-450) 229 K/mm3 Today, 06:12 CHEMISTRY Potassium, (3.3-5.1) 3.6 mmol/L Today, 06:12 Sodium, (133-145) 146 mmol/L H Today, 06:12 Magnesium, (1.5-2.2) 2.1 mg/dL 01/24/25, 20:37 Phosphorus, (2.7-4.5) 2.3 mg/dL L 01/25/25, 06:38 BUN, (4-19) 7 mg/dL Today, 06:12 Creatinine, (0.70-1.20) 0.51 mg/dL L Today, 06:12 Glucose, (70-99) 96 mg/dL Today, 06:12 POC Glucose, (70-110) 114 mg/dL H 11/19/17, 12:05 TSH, (0.300-4.200) 1.070 uIU/mL 01/25/25, 06:38 COAG PT, (11.7-14.9) 13.0 SECONDS 01/26/25, 05:30 Pre-Assessment Diagnosis/Proposed Procedure Planned Operative Procedure(s): EGD-colonoscopy Anesthesia History 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 When Was Last Pacemaker Check QUESTION #4 FULL TEXT: You/Your Family Experience fever (hyperthermia) with Anesthesia Last Oral Intake Last Oral intake: Last Oral Intake NPO since 04:00 01/27/25 12:50 Meds taken in AM with sips of Yes 01/27/25 10:49 water? Meds patient instructed to Tylenol 01/27/25 10:49 take am of surgery PONV PONV - general road production manager: PONV - general road production manager Female HX of Motion Sickness HX of N/V After Surgery Non-Smoker Duration of Surgery greater than 60 minutes Number of Risk Factors PONV Score Height & Weight Height & Weight: Anesthesia: Height & Weight Height 5 ft 5 in 01/27/25 10:49 Weight: 49.6 kg 01/27/25 10:49 Body Mass Index (BMI) 18.1 01/27/25 12:50 Respiratory Assessment Respiratory Assessment - general road production manager: Respiratory Tract Infection Hx - general road production manager Hx Respiratory Tract Infection No 01/26/25 10:49 STOP Sleep Apnea STOP Sleep Apnea - general road production manager: STOP Sleep Apnea - general road production manager Hx Hypertension No 01/26/25 14:27 Hx Sleep Apnea Yes 01/26/25 18:56 CPAP Yes 01/25/25 00:17 BIPAP No 01/25/25 00:17 Do you snore loudly (louder than talking or can be heard Do you often feel tired/ fatigued/ sleepy during daytime? Has anyone observed you stop breathing during sleep? STOP Results Positive 01/25/25 00:17 QUESTION #5 FULL TEXT : Do you snore loudly (louder than talking or can be heard through closed doors)? 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 Specify any problems Hx of Preganancy in last 3 No 01/25/25 00:17 Months Nurse Filling Out Transfusion DREDICK 01/25/25 00:17 & Questions: Date: 01/25/25 01/25/25 00:17 Time: 00:18 01/25/25 00:17 Patient unable to answer at this time (ie. confused, unrespo /Reproduction History /Reproductive History - general road production manager: /Reproductive Hx- general road production manager Hx Now No 01/26/25 10:49 Gestational Age (in weeks): EDC: Hx Hx Para Hx Section SAB No 01/26/25 10:49 Active Medications Active Medications: Current Medications Generic Name Dose Route Start Last Admin Trade Name Freq PRN Reason Stop Dose Admin Acetaminophen 650 mg 01/25/25 00:09 Acetaminophen 650 Mg Suppository RC Q6H PRN PRN Pain 1-5/10 or Fever Acetaminophen 650 mg 01/25/25 17:25 01/27/25 11:03 Acetaminophen 325 Mg Tablet PO 650 mg Q6H PRN PRN Administration Pain 1-10 or Fever Albuterol Sulfate 2.5 mg 01/25/25 00:09 01/26/25 16:38 Albuterol 2.5 Mg/3 Ml Vial.Neb. INHALATION 2.5 mg Q2H PRN PRN Administration Dyspnea, wheezing Albuterol/Ipratropium 3 ml 01/25/25 00:09 01/27/25 06:40 Ipratropium/Albuterol Sulfate 3 Ml Ampul.Neb INHALATION 3 ml Q4H PRN PRN Administration COPD exacerbation, hypoxia Calamine/Phenol 1 applic 01/25/25 10:00 01/27/25 10:47 Menthol/Lanolin/Calamine/Znox 113 Gm Tube TOPICAL 1 applic BID KYRA Administration Protocol Cyanocobalamin 1,000 mcg 01/26/25 08:00 01/27/25 08:39 Cyanocobalamin 500 Mcg Tablet PO Not Given BREAKFAST KYRA Hydralazine HCl 5 mg 01/25/25 00:09 Hydralazine 20 Mg/Ml Vial IV Q8H PRN PRN SBP GREATER THAN 160 Protocol Pantoprazole Sodium 40 mg/ 100 mls @ 330 mls/hr 01/25/25 00:09 01/27/25 11:01 Sodium Chloride IV Infused BID KYRA Infusion Sodium Chloride 250 mls @ 15 mls/hr 01/25/25 00:11 01/27/25 11:04 IV 0 mls/hr .[id number] PRN Infusion Saline Flush Sodium Chloride 250 mls @ 15 mls/hr 01/25/25 00:11 IV .[id number] PRN Additional IVPB Infusion Lactated Ringer's 1,000 mls @ 15 mls/hr 01/26/25 17:15 01/27/25 12:48 IV 15 mls/hr .Q48H KYRA Administration Morphine Sulfate 2 mg 01/25/25 00:09 Morphine 2 Mg/Ml Syringe IV Q4H PRN PRN Pain Score 6-10 Ondansetron HCl 4 mg 01/25/25 00:09 Ondansetron 4 Mg/2 Ml Vial IV Q8H PRN PRN NAUSEA/VOMITING Sodium Chloride 10 - 40 ml 01/25/25 00:11 01/27/25 11:02 0.9% Saline Lock 10 Ml Syringe IV 10 ml UD PRN Administration SALINE FLUSH PFSH Medical History On home O2 Chronic hypercapnic respiratory failure Abdominal distention Cardiac dysrhythmia MVP (mitral valve prolapse) Migraines Bipolar disorder Anxiety Depression GERD (gastroesophageal reflux disease) CPAP (continuous positive airway pressure) dependence Sleep apnea Smoker Asthma Migraines COPD (chronic obstructive pulmonary disease) HTN (hypertension) Home Medications Medication Instructions Recorded Last Taken Type nebulizer accessories #1 ea 11/26/21 Unknown Rx acetaminophen 500 mg tablet 1,000 mg PO Q6H PRN pain 08/18/24 08/18/24 History albuterol sulfate 2.5 mg/3 mL 2.5 mg (3 mL) inhalation Q2H PRN 08/21/24 Unknown Rx (0.083 %) solution for nebulization Dyspnea, wheezing #75 mL furosemide 40 mg tablet 40 mg PO BIDLX #28 tabs 08/21/24 Unknown Rx hydroxyzine HCl 25 mg tablet 25 mg PO QHS PRN sleep #30 tabs 08/21/24 Unknown Rx ipratropium 0.5 mg-albuterol 3 mg 3 ml inhalation Q4H PRN COPD, 08/21/24 Unknown Rx (2.5 mg base)/3 mL nebulization exacerbation, hypoxia #90 mL soln lansoprazole 30 mg capsule,delayed 30 mg PO DAILY gerd #30 caps 08/21/24 Unknown Rx release metoprolol tartrate 25 mg tablet 12.5 mg (1/2 x 25 mg) PO BID heart 08/21/24 Unknown Rx #30 tabs linaclotide 290 mcg capsule 290 mcg PO QAM bowel movement #90 09/24/24 Unknown Rx (Linzess) caps polyethylene glycol 3350 17 17 g PO BID PRN Constipation 09/24/24 Unknown History gram/dose oral powder (Miralax) Allergy/AdvReac Type Severity Reaction Status Date / Time Sulfa (Sulfonamide Allergy Intermediate Other Verified 01/24/25 18:17 Antibiotics) Latex, Natural Rubber Allergy Rash Verified 01/24/25 18:17 nabumetone AdvReac Intermediate Other Verified 01/24/25 18:17 meloxicam AdvReac Mild Nausea Verified 01/24/25 18:17 Family History Mother Heart disease Father Heart disease Surgical History History of tonsillectomy H/O shoulder surgery History of cholecystectomy Social History household members: none Smoking Status: Current every day smoker tobacco type: cigarettes Tobacco: How many years used: 45 alcohol intake: former details: Reports prior heavy EtOH abuse, notes she does not drink routinely, vague. substance use type: does not use Review of Systems (Anesthesia) ROS Narrative System reviewed and no additional complaints, except as documented.
--- NOTE | 2025-01-27 13:30 | COLBX_PTH ---
PATIENT: SHYANN ENNIS LOC: [facility] U#:[id number] AGE/SX: 64/F ROOM: [facility] RE01/25/[address]: Dr. Rodney Pastrana MD : 1960 BED: 1 DIS: 02/04/2025 SPEC #: [id number] RECD: 01/28/25 07:59 STATUS: MARCELLUS REQ #: [id number] ALPHONSO: 01/27/25 13:[address]: Matt Rodriguez DEPT: SURGICAL PATHOLOGY RECD BY: Ren Brand ENTERED: 01/28/25 10:43 SP TYPE: COLON BX OTHR DR: MD Dr. Vance David DO Dr. Jeffrey Burkey, MD Dr. Nicholas F Kotsonis, MD Tissues: A - COLON BIOPSY Procedures: Surgery Specimen Level IV Comments: @ Ordering doctor for SUIV edited from to @ brie SARGENT at 01/28/25 1043 @ Submitting doctor edited from to @ by ARIE at 01/28/25 1043 HEADER OPERATION: Colonoscopy, hemostasis, biopsy PRE-OP DIAGNOSIS: Anemia TISSUE SUBMITTED: A- Hepatic flexure mass biopsy MICROSCOPIC DIAGNOSIS A. Colon, hepatic flexure, "mass", biopsy: * Invasive adenocarcinoma. MICROSCOPIC DESCRIPTION Slides are reviewed. GROSS DESCRIPTION A. Received in fixative is one container labeled with the patient's name and designated "Hepatic flexure mass biopsy." The specimen consists of multiple irregular fragments of valenzuela tissue that in aggregate measure 1.1 x 0.7 x 0.2 cm. The specimen is totally submitted in one cassette. NV 01/28/2025 CPT:47999
--- NOTE | 2025-01-27 14:57 | CASEMGMT ---
ELIN CM into pt room to make pt aware that [facility] has accepted her. Pt is off of the floor at this time. Updated pt mother who was in room.
[2025-01-27 16:59] LABS: Base Excess 25 mmol/L (-2 to +2); Comment drawn by md in endo; FI02 100.0; PO2 383 mmHG (75-100); SITE Not entered; SO2 100 % (95-99); Time Given 16:57:31
--- NOTE | 2025-01-27 17:18 | PCM.POST.ANE ---
Anesthesia: Postop Eval I Current Vital Signs Temperature: 97.5 F Pulse Rate: 88 Blood Pressure: 138/75 Respiratory Rate: 16 Pulse Ox: 100 Assessment Airway patent: Yes Spontaneous unlabored respirations: Yes nausea: No Vomiting: No Anesthesia Complication: No Fluid Hydration Crystalloid volume administer (ml): 800 Total IV fluid infused: 800 Progress Note Anesthesia document: Postop Eval 1 completed: Yes
--- NOTE | 2025-01-27 17:24 | OP.PROVAT_ITS ---
01/27/2025 Jose Carlos Lang MD Re : Colonoscopy procedure for Bonny Nice Dear Dr. Lang This procedure was performed on Monday, January 27, 2025. My impressions and recommendations are as follows: Impressions : - Likely malignant partially obstructing tumor at the hepatic flexure. Biopsied. Tattooed. hemostatic spray applied. - Four 1 to 2 mm polyps in the sigmoid colon, in the descending colon, at the splenic flexure and in the transverse colon. Recommendations : Surgical consultation - [facility]. - Repeat colonoscopy for surveillance of multiple adenomas. - Continue present medications. My findings are described in the full procedure note, which is enclosed. If I can be of further assistance, please feel free to contact me at . Sincerely, Matt Rodriguez, 01/27/2025 5:24:04 PM This report has been signed electronically.
--- NOTE | 2025-01-27 17:24 | OP.COLON_ITS ---
Patient Name: Bonny Nice Procedure Date: 01/27/2025 3:52 PM Date of : 1960 Age: 64 Procedure: Colonoscopy Indications: Hematochezia, Iron deficiency anemia Providers: Matt Rodriguez DO Medicines: Monitored Anesthesia Care Patient Profile: This is a 64 year old female. Refer to note in patient chart for documentation of history and physical. Last Colonoscopy: none. The patient's first colonoscopy is today. Complications: No immediate complications. Procedure: Pre-Anesthesia Assessment: - Prior to the procedure, a History and Physical was performed, and patient medications and allergies were reviewed. The patient is competent. The risks and benefits of the procedure and the sedation options and risks were discussed with the patient. All questions were answered and informed consent was obtained. Patient identification and proposed procedure were verified by the physician in the pre-procedure area. Mental Status Examination: alert and oriented. Airway Examination: normal oropharyngeal airway and neck mobility. Respiratory Examination: clear to auscultation. CV Examination: normal. ASA Grade Assessment: II - A patient with mild systemic disease. After reviewing the risks and benefits, the patient was deemed in satisfactory condition to undergo the procedure. The anesthesia plan was to use monitored anesthesia care (MAC). Immediately prior to administration of medications, the patient was re-assessed for adequacy to receive sedatives. The heart rate, respiratory rate, oxygen saturations, blood pressure, adequacy of pulmonary ventilation, and response to care were monitored throughout the procedure. The physical status of the patient was re-assessed after the procedure. After I obtained informed consent, the scope was passed under direct vision. Throughout the procedure, the patient's blood pressure, pulse, and oxygen saturations were monitored continuously. The colonoscope was introduced through the anus and advanced to the cecum, identified by appendiceal orifice and ileocecal valve. The colonoscopy was performed without difficulty. The colonoscopy was performed without difficulty. The patient tolerated the procedure well. The quality of the bowel preparation was adequate. The ileocecal valve, appendiceal orifice, and rectum were photographed. Scope In: 4:21:41 PM Scope Withdrawal Time 0 hours 24 minutes 22 seconds Scope Out: 5:06:45 PM Total Procedure Duration Time 0 hours 45 minutes 4 seconds Findings: The perianal and digital rectal examinations were normal. An ulcerated partially obstructing large mass was found at the hepatic flexure. The mass was partially circumferential (involving two-thirds of the lumen circumference). Oozing was present. This was biopsied with a cold forceps for histology. Area was tattooed with an injection of 3 mL of Stormy ink. To stop active bleeding, hemostatic spray was deployed. Several sprays were applied. There was no bleeding at the end of the procedure. Retroflexion was not performed during this procedure. Four sessile polyps were found in the sigmoid colon, descending colon, splenic flexure and transverse colon. The polyps were 1 to 2 mm in size. Two large angiodysplastic lesions without bleeding were found in the ascending colon and in the cecum. Coagulation for destruction of remaining portion of lesion using heater probe was successful. Estimated blood loss was minimal. Impression: - Likely malignant partially obstructing tumor at the hepatic flexure. Biopsied. Tattooed. hemostatic spray applied. - Four 1 to 2 mm polyps in the sigmoid colon, in the descending colon, at the splenic flexure and in the transverse colon. Recommendation: Surgical consultation - [facility]. - Repeat colonoscopy for surveillance of multiple adenomas. - Continue present medications. Procedure Code(s): --- Professional --- 08866, Colonoscopy, flexible; with control of bleeding, any method 84454, 59, Colonoscopy, flexible; with directed submucosal injection(s), any substance CPT copyright 2021 [employer]. All rights reserved. The codes documented in this report are preliminary and upon physician coder review may be revised to meet current compliance requirements. Matt Rodriguez DO 01/27/2025 5:24:04 PM This report has been signed electronically. Number of Addenda: 0 Note Initiated On: 01/27/2025 3:52 PM
--- NOTE | 2025-01-27 17:38 | POSTOPAN2_ITS ---
Anesthesia Postop Eval I Sum Postop Eval Completion status Anesthesia document: Postop Eval 1 completed: Yes Anesthesia Postop Eval I Summary Anesthesia Postop Eval I Summary: Anesthesia Postop Eval I: Assessment Summary Airway patent Yes 01/27/25 17:18 FORMING MACHINE TENDER.TNES Spontaneous unlabored Yes 01/27/25 17:18 FORMING MACHINE TENDER.TNES respirations Mental status Asleep 01/26/25 19:22 nausea No 01/27/25 17:18 FORMING MACHINE TENDER.TNES Vomiting No 01/27/25 17:18 FORMING MACHINE TENDER.TNES Anesthesia Postop Eval I: Fluid Summary Crystalloid volume administer 800 01/27/25 17:18 FORMING MACHINE TENDER.TNES (ml) Colloids volume administered ( ml) Blood Product volume administered (ml) Total IV fluid infused 800 01/27/25 17:18 FORMING MACHINE TENDER.TNES Anesthesia Postop Eval I: Summary Notes Anesthesia Complication No 01/27/25 17:18 FORMING MACHINE TENDER.TNES Anesthesia Complication Comment: Post-operative progress note Anesthesia: Postop Eval II Evaluation Mental status: Awake and Calm Pain Level: 1 nausea: No Vomiting: No Progress Note Post-operative progress note: Patient noted to be obtunded prior to procedure today. She had done colon cleaning and needed the colonoscopy. During the case placed on nonrebreather and stable vitals. Saturating 100%. we did ABG which showed PaCO2 in 130s with pH 7.2. I communicated with hospitalist and decision was made to start the patient on BiPAP in PACU. Keep the patient in PACU for 1 hour minimum and repeat ABG. The hospitalist agreed that the patient will likely be going to the ICU postop.
--- NOTE | 2025-01-27 18:19 | SUR.PHASEI ---
1743 VIKTORIA, RT CALLED . PULSE OX DECREASED TO 89% ON 30 % FIO2 ON BIPAP. FIO2 INCREASED TO 50% , WILL CONTINUE TO MONITOR.JORDYN WORTHINGTON
[2025-01-27 18:54] LABS: Base Excess 19 mmol/L (-2 to +2); FI02 50.0; PEEP 6; PO2 130 mmHG (75-100); RR 16; SITE L Radial; SO2 99 % (95-99); Time Given 18:51:36
[2025-01-28] VITALS (9 sets, daily range): BP systolic 104–120; BP diastolic 72–88; PULSE 88–110; RESP 16–18; TEMP 36.5–36.7; O2SAT 94–100; BMI 16.7
[2025-01-28 05:46] LABS: Hematocrit 28.9 % (37-47); Hemoglobin 7.9 g/dL (12.0-15.0); Immature Granulocytes Count 0.080 X10^3/uL (0.0-0.0); Mean Corp Hgb Conc 27.3 g/dL (32-36); Mean Corpuscular Volume 105.9 fL (81-99); Mean Platelet Vol. 9.3 fl (6.2-12.0); NRBC Flagged by Analyzer 0.3 % (0-5); Platelet Count 256 K/mm3 (150-450); RBC Distribution Width CV 13.7 % (11.6-14.6); RBC Distribution Width SD 52.1 fl (35.1-43.9); Red Blood Count 2.73 M/mm3 (4.2-5.4); White Blood Count 8.8 K/mm3 (4.4-11.0)
[2025-01-28 06:49] LABS: Anion Gap 5 (5-15); BUN 7 mg/dL (4-19); BUN/Creat Ratio 12.5 RATIO (10-20); Calcium,Total 8.7 mg/dL (7.6-11.0); Carbon Dioxide 43.1 mmol/L (21.0-32.0); Chloride 97 mmol/L (98-108); Estimated Creatinine Clearance 77.53 ml/min (50-250); Glucose 116 mg/dL (70-99); Potassium 3.1 mmol/L (3.3-5.1)
--- NOTE | 2025-01-28 07:33 | CON.PCM.SX_ITS ---
Assessment & Plan Assessment/Plan (1) Colonic mass: PLAN: The patient has a colonic mass that was found on colonoscopy for GI bleeding. The mass is at the hepatic flexure. I discussed this with the patient. She was unaware that she had a colon cancer. I discussed surgery with her briefly. She seems agreeable. She would need to be transfused over the weekend and I hope to get her on early next week for surgery. Optimize respiratory status. CT of the chest abdomen and pelvis and CEA are pending. José Darling MD Pager: [facility] [address] [place] [address], [address] [place] [address] Office: HPI Consult Data Date of Consult: 01/28/25 HPI Narrative HPI Narrative: SHYANN ENNIS, is a 64 F who presents with anemia and GI bleeding. Patient was found to have a colon cancer in the hepatic flexure by Dr. Rodriguez. Patient denies any abdominal pain. She denies nausea or vomiting. She reports her only abdominal surgery is a cholecystectomy. [facility] Medical History On home O2 Chronic hypercapnic respiratory failure Abdominal distention Cardiac dysrhythmia MVP (mitral valve prolapse) Migraines Bipolar disorder Anxiety Depression GERD (gastroesophageal reflux disease) CPAP (continuous positive airway pressure) dependence Sleep apnea Smoker Asthma Migraines COPD (chronic obstructive pulmonary disease) HTN (hypertension) Home Medications Medication Instructions Recorded Last Taken Type nebulizer accessories #1 ea 11/26/21 Unknown Rx acetaminophen 500 mg tablet 1,000 mg PO Q6H PRN pain 0 08/18/24 08/18/24 History albuterol sulfate 2.5 mg/3 mL 2.5 mg (3 mL) inhalation Q2H PRN 08/21/24 Unknown Rx (0.083 %) solution for nebulization Dyspnea, wheezing #75 mL furosemide 40 mg tablet 40 mg PO BIDLX #28 tabs 0501/07 Unknown Rx hydroxyzine HCl 25 mg tablet 25 mg PO QHS PRN sleep #3 0 tabs 08/21/24 Unknown Rx ipratropium 0.5 mg-albuterol 3 mg 3 ml inhalation Q4H PRN COPD, 05/09/25 Unknown Rx (2.5 mg base)/3 mL nebulization exacerbation, hypoxia #90 mL soln lansoprazole 30 mg capsule,delayed 30 mg PO DAILY gerd #30 caps 08/21/24 Unknown Rx release metoprolol tartrate 25 mg tablet 12.5 mg (1/2 x 25 mg) PO BID heart 08/21/24 Unknown Rx #30 tabs linaclotide 290 mcg capsule 290 mcg PO QAM bowel movem ent #90 09/24/24 Unknown Rx (Linzess) caps polyethylene glycol 3350 17 17 g PO BID PRN Constipati on 09/24/24 Unknown History gram/dose oral powder (Miralax) Allergy/AdvReac Type Severity Reaction Status Date / Time Sulfa (Sulfonamide Allergy Intermediate Other Verified 01/24/25 18:17 Antibiotics) Latex, Natural Rubber Allergy Rash Verified 01/24/25 18:17 nabumetone AdvReac Intermediate Other Verified 01/24/25 18:17 meloxicam AdvReac Mild Nausea Verified 01/24/25 18:17 Family History Mother Heart disease Father Heart disease Surgical History History of tonsillectomy H/O shoulder surgery History of cholecystectomy Social History household members: none Smoking Status: Current every day smoker tobacco type: cigarettes Tobacco: How many years used: 45 alcohol intake: former details: Reports prior heavy EtOH abuse, notes she does not drink routinely, vague. substance use type: does not use ROS Constitutional Constitutional: Denies anorexia, fatigue or fever(s) Eyes Eyes: Denies blurry vision ENT HEENT: Denies abnormal hearing Respiratory/Chest Respiratory/Chest: Reports dyspnea; Denies cough Gastrointestinal Gastrointestinal: Reports constipation and hematochezia; Denies abdominal pain, diarrhea, nausea or vomiting Genitourinary Genitourinary: Denies change in urinary stream Musculoskeletal Musculoskeletal: Denies abnormal gait Integumentary Integumentary: Denies jaundice or new lesions Neurologic Neurologic: Denies abnormal gait Psychiatric Psychiatric: Denies anxiety Endocrine Endocrinology: Denies flushing Hematologic/Lymphatic Hematologic/Lymphatic: Denies easy bleeding Physical Exam Const alert and no apparent distress HEENT normocephalic Eyes PERRL Resp normal respiratory effort Cardio Rate: regular rate Rhythm: regular rhythm GI soft to palpation and non-tender Lab / Micro Data 01/28/25 05:06 01/28/25 05:06 Labs: Laboratory Results - last 24 hr 01/28/25 05:06: WBC 8.8, RBC 2.73 L, Hgb 7.9 L, Hct 28.9 L, MCV 105.9 H D, MCH 28.9, MCHC 27.3 L D, RDW Std Deviation 52.1 H, RDW Coeff of Sarah 13.7, Plt Count 256, MPV 9.3, Immature Gran % (Auto) 0.900, Neut % (Auto) 77.3 H, Lymph % (Auto) 7.4 L, Glacier % (Auto) 13.4 H, Eos % (Auto) 0.7, Baso % (Auto) 0.3, Absolute Neuts (auto) 6.8, Absolute Lymphs (auto) 0.65 L, Nucleated RBC % 0.3, Sodium 145, P otassium 3.1 L, Chloride 97 L, Carbon Dioxide 43.1 H, Anion Gap 5, BUN 7, C reatinine 0.53 L, Estim Creat Clear Calc 77.53, Est GFR (MDRD) Non-Af 103, BUN/Creatinine Ratio 12.5, Glucose 116 H, Calcium 8.7 ABG Data ABG results: ABG 01/27/25 01/27/25 16:55 18:49 Specimen Type ART ART Sample Site Not entered L Radial pH 7.20 L 7.36 Bicarbonate Actual 53.2 H 44.8 H Total CO2 > 50 47 Base Excess 25 H 19 H O2 Saturation 100 H 99 O2 % 100.0 50.0 ABG pCO2 135.3 H* 80.2 H* ABG pO2 383 H* 130 H Jorge Luis Test N/A Respiration Rate 16 O2 Delivery Device NRB BiPAP Vent Mode Not entered Not entered POC PEEP 6 Crit Call To/Read Back Yes Yes Blood Gas Notified Whom friend Dr Olivas Blood Gas Notified Time 16:57:31 18:51:36 Clinical Comments drawn by in endo
--- NOTE | 2025-01-28 08:00 | CT_ITS ---
PROCEDURE: CT CHEST, ABD, PEL W/CONTRAST 01/28/2025 REASON FOR EXAM: COLON CANCER AND GI BLEED Partial obstructive tumor at the region of the hepatic flexure. TECHNIQUE: Chest, abdomen and pelvis CT with intravenous contrast. Coronal and Sagittal reconstruction series were provided. One or more dose reduction techniques were used (e.g., Automated exposure control, adjustment of the mA and/or kV according to patient size, use of iterative reconstruction technique. PATIENT PREPARATION: Per protocol ORAL CONTRAST TYPE: Per protocol. CONTRAST: Isovue-300 VOLUME: 75mL RADIATION DOSE SUMMARY: CTDlvol: 9.3 mGy DLP: 518.07 mGycm COMPARISON: Prior study dated August 20, 2024. FINDINGS: CT CHEST: Hardware: None Lymph nodes: No significant lymph nodes are seen. Heart and Vasculature: The heart is nonenlarged. Minimal coronary artery calcification. Atherosclerotic calcifications of the thoracic aorta. Pulmonary arteries are unremarkable. Lungs and Airways: Small bilateral pleural effusions right greater than left with bibasilar atelectasis and/or early infiltrates. Emphysematous changes worse in the right upper lobe. No pulmonary mass is seen. Pleura: Small bilateral pleural effusions. Bones: Degenerative changes of the thoracic spine. Loss of height of a mid dorsal vertebrae. CT ABDOMEN/PELVIS: Liver: Since prior study, there now is evidence of multiple hypodense solid masses scattered throughout both lobes of the liver in keeping with diffuse metastatic deposits. Once again, small benign-appearing hepatic cysts are seen. Small amount of perihepatic fluid. Gallbladder: The gallbladder is not visualized. Most likely surgically removed. Spleen: Normal size. Pancreas: Diffuse fatty atrophy. Adrenals: Unremarkable Kidneys: Normal renal sizes. No hydronephrosis. Bladder: Unremarkable Reproductive Organs: Normal uterine size and contour. Ovaries are unremarkable. Bowel: Hypoechoic lesion is seen in the region of the hepatic flexure in keeping with known mass at that site. No evidence of bowel obstruction at this time. Appendix: The appendix is not identified. There is no inflammatory process identified in the right lower quadrant to suggest appendicitis. Lymph nodes: Unremarkable. Vasculature: Mild diffuse atherosclerotic calcifications are noted. Peritoneum / Retroperitoneum: Small amount of fluid is seen in the cul-de-sac in keeping with the ascitic fluid. Bones: Demineralization of the lumbar vertebrae. Almost complete collapse of the T12 and L1 vertebrae. CT/CT Chest, Abd, Pel w/Contrast IMPRESSION: Diffuse liver metastasis. Small amount of perihepatic fluid as well as fluid in the pelvis. Apple-core lesion seen in the region of the hepatic flexure. Reading Location: [place] [address]
--- NOTE | 2025-01-28 09:08 | CASEMGMT ---
Handoff given to [employer] FORMER CM as pt trf floors.
--- NOTE | 2025-01-28 10:45 | CASEMGMT ---
Social Work Per physicians, pt is not ready for discharge at this time and goals of care will be discussed. [facility] updated via [employer] requesting to put referral on hold until decisions are made. SW will follow up with pt for support after physicians have spoke with pt. RUMA [place]
[2025-01-28] MEDS: Pantoprazole Sodium 40 MG in 0.9% Normal Saline (100mL MB+) 100 ML 330 MG IV ×2 (11:08→22:54)
--- NOTE | 2025-01-28 12:59 | PN.HOSP_ITS ---
Subjective Subjective Alert but sleepy. She had some hypercapnic respiratory failure yesterday after her colonoscopy was placed on BiPAP and her pCO2 of 135 came down to 80 after an hour on her BiPAP she has chronic hypercapnia baseline. Objective Data Objective Data Vital Signs: Vital Signs Temp Pulse Resp BP Pulse Ox O2 Del Method O2 Flow Rate 98 F 110 H 17 117/80 97 Nasal Cannula 3 01/28/25 11:15 01/28/25 11:15 01/28/25 11:15 01/28/25 11:15 01/28/25 11:15 01/28/25 11:15 01/28/25 11:15 FiO2 35 01/28/25 05:00 Oxygen Flow Rate (L/min) 3 Oxygen Delivery Method Nasal Cannula Weight: 100 lb 15.547 oz Body Mass Index (BMI) 16.7 Intake & Output: Intake and Output for Last 24 Hours 01/27/25 01/28/25 01/29/25 03:59 03:59 03:59 Intake Total 813.75 / 813.75 433.75 / 433.75 1025 / 1025 Output Total 350 / 350 Balance 463.75 / 463.75 433.75 / 433.75 1025 / 1025 Lab / Micro Data 01/28/25 05:06 01/28/25 05:06 Labs: Laboratory Results - last 24 hr 01/28/25 05:06: WBC 8.8, RBC 2.73 L, Hgb 7.9 L, Hct 28.9 L, MCV 105.9 H D, MCH 28.9, MCHC 27.3 L D, RDW Std Deviation 52.1 H, RDW Coeff of Sarah 13.7, Plt Count 256, MPV 9.3, Immature Gran % (Auto) 0.900, Neut % (Auto) 77.3 H, Lymph % (Auto) 7.4 L, Louisa % (Auto) 13.4 H, Eos % (Auto) 0.7, Baso % (Auto) 0.3, Absolute Neuts (auto) 6.8, Absolute Lymphs (auto) 0.65 L, Nucleated RBC % 0.3, Sodium 145, P otassium 3.1 L, Chloride 97 L, Carbon Dioxide 43.1 H, Anion Gap 5, BUN 7, C reatinine 0.53 L, Estim Creat Clear Calc 77.53, Est GFR (MDRD) Non-Af 103, BUN/Creatinine Ratio 12.5, Glucose 116 H, Calcium 8.7 Micro: Microbiology 01/25/25 16:50 Stool Stool Occult Blood (ANT) - Final Occult Blood Positive ABG Data ABG results: ABG 01/27/25 01/27/25 16:55 18:49 Specimen Type ART ART Sample Site Not entered L Radial pH 7.20 L 7.36 Bicarbonate Actual 53.2 H 44.8 H Total CO2 > 50 47 Base Excess 25 H 19 H O2 Saturation 100 H 99 O2 % 100.0 50.0 ABG pCO2 135.3 H* 80.2 H* ABG pO2 383 H* 130 H Jorge Luis Test N/A Respiration Rate 16 O2 Delivery Device NRB BiPAP Vent Mode Not entered Not entered POC PEEP 6 Crit Call To/Read Back Yes Yes Blood Gas Notified Whom friend Dr Olivas Blood Gas Notified Time 16:57:31 18:51:36 Clinical Comments drawn by md in endo Radiography Diagnostic Testing: Radiology Impression Chest/Abdomen/Pelvis CT 01/28/25 08:00 IMPRESSION: Diffuse liver metastasis. Small amount of perihepatic fluid as well as fluid in the pelvis. Apple-core lesion seen in the region of the hepatic flexure. Reading Location: [place] [id number] Physical Exam Narrative General: Resting, oriented x2, Cooperative, No apparent distress HEENT: Atraumatic, PERRLA, EOMI, Normocephalic Oral: Moist Mucosa Neck: Supple, No JVD Lungs: Diminished, Normal air movement, No rhonchi, No wheeze, No rales Cardiovascular: Regular rate, Regular Rhythm, Normal S1, Normal S2, No murmurs Abdomen: Soft, Non Tender, Non-Distended, No Hepato-splenomegaly Extremities: No edema, Capillary Refill Less than 3 Seconds Skin: No rashes, No breakdown Musculoskeletal: No Tenderness to Palpation of Joints or Extremities Neurological: No focal neurological deficits, moves all extremities Psych/Mental Status: Normal Affect, Appropriate Assessment & Plan Assessment/Plan (1) Generalized weakness: (2) Anemia: QUALIFIERS: Anemia type: unspecified type Qualified Code(s): D 64.9 - Anemia, unspecified PLAN: Plan 1. Generalized weakness and falls with shortness of breath secondary to anemia from a GI bleed secondary to a metastatic colon cancer in the right hepatic flexure as well as iron deficiency and low vitamin B12/GERD – She has been having dark stools for about 10 days – Hemoccult is positive – Hemoglobin has stabilized – Appreciate GI assistance, EGD was unremarkable, colonoscopy demonstrated a right hepatic flexure colon mass with biopsies and CT of the chest abdomen pelvis demonstrates extensive metastatic disease to the liver – Continue with PPI – PT/OT 2. Essential HTN – She states that she is not on Lasix anymore – Continue with metoprolol – Will monitor and make adjustments as necessary – She had an echo 08/19/2024 with an EF of 70% and a mildly dilated right ventricle 3. COPD with acute hypercapnic respiratory failure –ABG demonstrated a pCO2 of 135 necessitating initiation of BiPAP, after about an hour her pCO2 was 80 and her pH improved from 7.2 up to 7.35 – Continue with her home inhalers – Recommend BiPAP while sleeping DVT: SCDs Charges/Coding Visit Charges Inpatient E&M: 89164 Subs Hosp L2
--- NOTE | 2025-01-28 13:03 | PN_ITS ---
Progress Note The patient CT scan of the abdomen and pelvis revealed multiple metastatic deposits in the liver that were not there on former CT scan. This is highly suggestive of colon metastasis. She also has complete collapse of T12 and L1. I discussed this with her and her mother. They are deciding between a palliative resection versus hospice care. They would like to consult oncology for their opinion. I will put that consult and I discussed it with Dr. Keys. I currently have the patient on for Saturday afternoon for right hemicolectomy. If she decides to proceed with palliative right hemicolectomy she can be bowel prepped over the weekend and transfused. I did discuss that it was high likelihood that she would end up back in the ICU and on a ventilator after surgery. The patient's family understands. They are going to discuss with oncology and decide between palliative hemicolectomy and hospice care. José Dalring MD Pager: [facility] [address] [place] [address] [address] [place] [address] Office:
--- NOTE | 2025-01-28 14:26 | CASEMGMT ---
Social Work SW met with pt and pt's mother Margarita. Pt and Margarita state they have spoke with physician and are aware of outcome from testing and new diagnosis of cancer. Emotional support provided. Pt lives alone in [place] and mother lives in [place]. Pt states that her only support is her mother and pt's mother states that she has multiple supports with family and friends. Pt has only left the home a handful of times since April as pt has had multiple medical issues and has became increasingly weak over time. Pt and family plan to speak with physicians and consider options moving forward. SW informed pt and Margarita that [facility] will not be cancelled at this time but will be put on hold until pt makes goals of are decisions. PT and Margarita made aware that SW will remain available for support and dc planning at the appropriate time. RUMA Kahn
--- NOTE | 2025-01-28 14:29 | CHAPLAIN ---
Type of Pastoral Visit _x__ Initial Visit ___ Follow-up Visit ___ On-call Visit ___ General Patient Visit ___ Spiritual Assessment ___ Family Conference ___ Bereavement ___ Rapid Response ___ Code Blue ___ Other (describe below) Pastoral Care Referral From _x__ Patient _x__ Family ___ Nurse _x__ Physician ___ Medical Services Manager ___ It Generalist ___ Other (describe below) Sacrament/Intervention _x__ Active listening ___ Anointing ___ Restorationist ___ Bereavement ___ Communion ___ Rakel exploration ___ ___ Life review _x__ Prayer ___ Reconciliation ___ Sacrament of Sick _x__ Supportive presence ___ Wedding ___ Other (describe below) Pastoral Comments patient was a referral and this chemical etching processor was going to see her next when her physician approached this chemical etching processor to also ask for a spiritual care consult; states that he just gave her the news of a new diagnosis which was metastatic cancer; entered room where patient and her mother are; pt is very thin with frazzled hair and on a canula for O2; pt is introduced to this chemical etching processor and informed that he also just heard this news of diagnosis; pt is given opportunity to talk, express her feelings, and given reminders of care and support available from chemical etching processor and staff; pt answers that she is not yet sure what to think about all this but admits that she has not been well and that she prefers her private life; asked permission to speak with her mother since patient is having difficulty in breathing; pt is encouraged to use her canula since she took it off; RN comes into room to admonish patient to continue using canula as well; O2 levels had dropped; mother is given permission to answer questions; mother gives summary of many months that patient has not been feeling well and has had COPD; pt is asked about her adventism connections and she denies having any; pt and mother are both given time to talk as they desire and need; mother acknowledges that she is also trying to process and to 'think about a decision for surgery or not'; pt is affirmed in that she has control of her decisions and how she wants to proceed; future spiritual or emotional support is offered as patient or mother desire; pt indicates appreciation but nothing else needed at this time
[2025-01-28 16:36] LABS: Magnesium 1.9 mg/dL (1.5-2.2)
--- NOTE | 2025-01-28 17:15 | ONC.CONSULT ---
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 Advised comfort measures on hospice program. I spoke with the patient's next of kin, mother Mrs. Ernestina Nice over the phone ([phone]) and she feels that this is the most appropriate course of action. HPI Consult Data Date of Service:: 01/28/25 PCP / Referring Provider: Dr. Jose Carlos Lang MD Attending: Dr. Antonio Olivas MD Chief Complaint Chief Complaint: Weakness History of Present Illness History of Present Illness: History obtained by review of patient acute admission records. 64-year-old female hospitalized with generalized weakness and a fall found to be anemic January 27, 2025: Colonoscopy:Impression: - Likely malignant partially obstructing tumor at the hepatic flexure. Biopsied. Tattooed. hemostatic spray applied. - Four 1 to 2 mm polyps in the sigmoid colon, in the descending colon, at the splenic flexure and in the transverse colon. January 28, 2025 CT chest abdomen and pelvis: IMPRESSION: Diffuse liver metastasis. Small amount of perihepatic fluid as well as fluid in the pelvis. Apple-core lesion seen in the region of the hepatic flexure. Advanced Directives Do you have a Healthcare Power of Key Worker?: No PFSH Medical History On home O2 Chronic hypercapnic respiratory failure Abdominal distention Cardiac dysrhythmia MVP (mitral valve prolapse) Migraines Bipolar disorder Anxiety Depression GERD (gastroesophageal reflux disease) CPAP (continuous positive airway pressure) dependence Sleep apnea Smoker Asthma Migraines COPD (chronic obstructive pulmonary disease) HTN (hypertension) Home Medications Medication Instructions Recorded Last Taken Type nebulizer accessories #1 ea 11/26/21 Unknown Rx acetaminophen 500 mg tablet 1,000 mg PO Q6H PRN pain 08/18/24 08/18/24 History albuterol sulfate 2.5 mg/3 mL 2.5 mg (3 mL) inhalation Q2H PRN 08/21/24 Unknown Rx (0.083 %) solution for nebulization Dyspnea, wheezing #75 mL furosemide 40 mg tablet 40 mg PO BIDLX #28 tabs 08/21/24 Unknown Rx hydroxyzine HCl 25 mg tablet 25 mg PO QHS PRN sleep #30 tabs 08/21/24 Unknown Rx ipratropium 0.5 mg-albuterol 3 mg 3 ml inhalation Q4H PRN COPD, 08/21/24 Unknown Rx (2.5 mg base)/3 mL nebulization exacerbation, hypoxia #90 mL soln lansoprazole 30 mg capsule,delayed 30 mg PO DAILY gerd #30 caps 08/21/24 Unknown Rx release metoprolol tartrate 25 mg tablet 12.5 mg (1/2 x 25 mg) PO BID heart 08/21/24 Unknown Rx #30 tabs linaclotide 290 mcg capsule 290 mcg PO QAM bowel movement #90 09/24/24 Unknown Rx (Linzess) caps polyethylene glycol 3350 17 17 g PO BID PRN Constipation 09/24/24 Unknown History gram/dose oral powder (Miralax) OXYGEN - Supplemental ([facility] 01/28/25 Unknown History INFORMATIONAL USE ONLY) Allergy/AdvReac Type Severity Reaction Status Date / Time Sulfa (Sulfonamide Allergy Intermediate Other Verified 01/24/25 18:17 Antibiotics) Latex, Natural Rubber Allergy Rash Verified 01/24/25 18:17 nabumetone AdvReac Intermediate Other Verified 01/24/25 18:17 meloxicam AdvReac Mild Nausea Verified 01/24/25 18:17 Family History Mother Heart disease Father Heart disease Surgical History History of tonsillectomy H/O shoulder surgery History of cholecystectomy Social History household members: none Smoking Status: Current every day smoker tobacco type: cigarettes Tobacco: How many years used: 45 alcohol intake: former details: Reports prior heavy EtOH abuse, notes she does not drink routinely, vague. substance use type: does not use ROS ROS Narrative The patient was sleepy, arousable to touch and verbal, denied being in pain or discomfort. Physical Exam Narrative The patient is cachectic, ECOG performance status 4, drowsy but arousable to verbal and touch. Const General Appearance: lethargic Nutritional Appearance: cachectic Vital Signs Temperature 98 F 01/28/25 11:15 Temperature Source Oral 01/28/25 11:15 Pulse Rate 110 H 01/28/25 11:15 Pulse Strength Normal (2+) 01/25/25 22:00 Respiratory Rate 17 01/28/25 11:15 Respiratory Effort Non-Labored 01/28/25 16:10 Respiratory Depth Deep 01/28/25 16:10 Respiratory Pattern Normal 01/28/25 07:45 Blood Pressure 117/80 01/28/25 11:15 Blood Pressure Mean 92 01/28/25 11:15 Blood Pressure Source Monitor 01/28/25 11:15 Blood Pressure Position Sitting 01/28/25 11:15 Blood Pressure Location Right Arm 01/28/25 11:15 Baseline BP 96/75 01/27/25 18:45 Pulse Ox 96 01/28/25 13:38 Oxygen Delivery Method Nasal Cannula 01/28/25 16:10 Oxygen Flow Rate (L/min) 3 01/28/25 16:10 Fraction of Inspired Oxygen (FIO2) 35 01/28/25 05:00 Laboratory Results - last 24 hr 01/28/25 05:06: WBC 8.8, RBC 2.73 L, Hgb 7.9 L, Hct 28.9 L, MCV 105.9 H D, MCH 28.9, MCHC 27.3 L D, RDW Std Deviation 52.1 H, RDW Coeff of Sarah 13.7, Plt Count 256, MPV 9.3, Immature Gran % (Auto) 0.900, Neut % (Auto) 77.3 H, Lymph % (Auto) 7.4 L, [place] % (Auto) 13.4 H, Eos % (Auto) 0.7, Baso % (Auto) 0.3, Absolute Neuts (auto) 6.8, Absolute Lymphs (auto) 0.65 L, Nucleated RBC % 0.3, Sodium 145, Potassium 3.1 L, Chloride 97 L, Carbon Dioxide 43.1 H, Anion Gap 5, BUN 7, Creatinine 0.53 L, Estim Creat Clear Calc 77.53, Est GFR (MDRD) Non-Af 103, BUN/Creatinine Ratio 12.5, Glucose 116 H, Calcium 8.7, Phosphorus 4.5, Magnesium 1.9 Diagnostic Data Chest X-Ray 01/24/25 19:10 IMPRESSION: Suggestion of COPD. Reading Location: [facility] Chest/Abdomen/Pelvis CT 01/28/25 08:00 IMPRESSION: Diffuse liver metastasis. Small amount of perihepatic fluid as well as fluid in the pelvis. Apple-core lesion seen in the region of the hepatic flexure. Reading Location: [place] [address] I personally reviewed patient's CT scan images and concur with reported findings of a colonic apple core lesion and extensive liver metastasis.
--- NOTE | 2025-01-28 18:33 | PN_ITS ---
Progress Note 64-year-old woman with a history of severe Chronic Obstructive Pulmonary Disease (COPD) requiring 4 L of oxygen at baseline. She presented with prog ressive iron deficiency anemia. Recently completed a work-up for iron deficiency anemia. An upper endoscopy showed no signs of bleeding. A colonoscopy revealed a lesion at the hepatic flexure with stigmata of bleeding, which was managed endoscopically. Biopsies were taken, and the lesion was tattooed. * Recent events: A subsequent CT scan of the chest, abdomen, and pelvis showed an "apple core" lesion at the hepatic flexure and diffuse metastatic disease in the liver. Following consultation with oncology, the recommendation was for hospice care. Physical Exam Narrative General: Resting, oriented x2, Cooperative, No apparent distress HEENT: Atraumatic, PERRLA, EOMI, Normocephalic Oral: Moist Mucosa Neck: Supple, No JVD Lungs: Diminished, Normal air movement, No rhonchi, No wheeze, No rales Cardiovascular: Regular rate, Regular Rhythm, Normal S1, Normal S2, No murmurs Abdomen: Soft, Non Tender, Non-Distended, No Hepato-splenomegaly Extremities: No edema, Capillary Refill Less than 3 Seconds Skin: No rashes, No breakdown Musculoskeletal: No Tenderness to Palpation of Joints or Extremities Neurological: No focal neurological deficits, moves all extremities Psych/Mental Status: Normal Affect, Appropriate Assessment & Plan Assessment/Plan (1) Metastasis to liver: (2) Colonic mass: (3) Anemia: QUALIFIERS: Anemia type: unspecified type Qualified Code(s): D6 4.9 - Anemia, unspecified (4) Dark stools: PLAN: 64-year-old woman with diffuse metastatic colon adenocarcinoma and severe COPD, now transitioning to end-of-life care. * 1. Metastatic Colon Cancer: * Diagnosis confirmed by imaging (apple core lesion) and biopsy (pending results). * Metastatic spread to the liver noted on CT scan. * Presents with iron deficiency anemia likely due to chronic blood loss from the colon lesion. * Prognosis is poor, with oncology recommending hospice. * 2. Severe Chronic Obstructive Pulmonary Disease (COPD): * Baseline oxygen requirement of 4 L reflects advanced respiratory compromise. * Concurrent lung disease complicates overall management and prognosis. * 3. Iron Deficiency Anemia: * Source of bleeding identified as the hepatic flexure mass. * Endoscopic intervention successfully controlled the bleeding. * Management will now focus on palliative symptom control rather than curative measures for the anemia. Plan * 1. Hospice Care: * Patient and mother is deciding on hospice services, including initial evaluation by the hospice team. * I talked to her and recommended comfort care. * 2. Symptom Management: * Respiratory: Continue home oxygen therapy, titrating to comfort as needed. Educate on supplemental strategies for dyspnea (e.g., fan, positioning). * Pain: Prophylactic and as-needed analgesics as guided by the hospice plan. * Gastrointestinal: Monitor for any further bleeding or GI symptoms. * 3. Advance Care Planning: * I also asked her about her resuscitation status (e.g., Do Not Resuscitate (DNR) order), intubation, and other life-sustaining treatments. She has not decided yet. Visit Charges Inpatient E&M: 87102 [facility] L3
--- NOTE | 2025-01-28 18:33 | PCM.PN.BLA ---
Progress Note 64-year-old woman with a history of severe Chronic Obstructive Pulmonary Disease (COPD) requiring 4 L of oxygen at baseline. She presented with progressive iron deficiency anemia. Recently completed a work-up for iron deficiency anemia. An upper endoscopy showed no signs of bleeding. A colonoscopy revealed a lesion at the hepatic flexure with stigmata of bleeding, which was managed endoscopically. Biopsies were taken, and the lesion was tattooed. Recent events: A subsequent CT scan of the chest, abdomen, and pelvis showed an "apple core" lesion at the hepatic flexure and diffuse metastatic disease in the liver. Following consultation with oncology, the recommendation was for hospice care. Physical Exam Narrative General: Resting, oriented x2, Cooperative, No apparent distress HEENT: Atraumatic, PERRLA, EOMI, Normocephalic Oral: Moist Mucosa Neck: Supple, No JVD Lungs: Diminished, Normal air movement, No rhonchi, No wheeze, No rales Cardiovascular: Regular rate, Regular Rhythm, Normal S1, Normal S2, No murmurs Abdomen: Soft, Non Tender, Non-Distended, No Hepato-splenomegaly Extremities: No edema, Capillary Refill Less than 3 Seconds Skin: No rashes, No breakdown Musculoskeletal: No Tenderness to Palpation of Joints or Extremities Neurological: No focal neurological deficits, moves all extremities Psych/Mental Status: Normal Affect, Appropriate Assessment & Plan Assessment/Plan (1) Metastasis to liver: (2) Colonic mass: (3) Anemia: QUALIFIERS: Anemia type: unspecified type Qualified Code(s): D64.9 - Anemia, unspecified (4) Dark stools: PLAN: 64-year-old woman with diffuse metastatic colon adenocarcinoma and severe COPD, now transitioning to end-of-life care. 1. Metastatic Colon Cancer: Diagnosis confirmed by imaging (apple core lesion) and biopsy (pending results). Metastatic spread to the liver noted on CT scan. Presents with iron deficiency anemia likely due to chronic blood loss from the colon lesion. Prognosis is poor, with oncology recommending hospice. 2. Severe Chronic Obstructive Pulmonary Disease (COPD): Baseline oxygen requirement of 4 L reflects advanced respiratory compromise. Concurrent lung disease complicates overall management and prognosis. 3. Iron Deficiency Anemia: Source of bleeding identified as the hepatic flexure mass. Endoscopic intervention successfully controlled the bleeding. Management will now focus on palliative symptom control rather than curative measures for the anemia. Plan 1. Hospice Care: Patient and mother is deciding on hospice services, including initial evaluation by the hospice team. I talked to her and recommended comfort care. 2. Symptom Management: Respiratory: Continue home oxygen therapy, titrating to comfort as needed. Educate on supplemental strategies for dyspnea (e.g., fan, positioning). Pain: Prophylactic and as-needed analgesics as guided by the hospice plan. Gastrointestinal: Monitor for any further bleeding or GI symptoms. 3. Advance Care Planning: I also asked her about her resuscitation status (e.g., Do Not Resuscitate (DNR) order), intubation, and other life-sustaining treatments. She has not decided yet. Visit Charges Inpatient E&M: [id number] [facility] Hosp L3
[2025-01-28] MEDS: 0.9% Saline Lock 10 ML Syringe IV (20:37)
[2025-01-29] VITALS (8 sets, daily range): BP systolic 93–131; BP diastolic 68–87; PULSE 80–95; RESP 16–22; TEMP 36.2–36.7; O2SAT 94–100; BMI 16.5
[2025-01-29] MEDS: 0.9% Saline Lock 10 ML Syringe IV ×2 (03:39→21:08)
[2025-01-29 04:07] LABS: Carcinoembryonic Antigen 322.0 ng/mL (0.0-4.7)
[2025-01-29 05:57] LABS: Hematocrit 31.0 % (37-47); Hemoglobin 8.5 g/dL (12.0-15.0); Immature Granulocytes Count 0.100 X10^3/uL (0.0-0.0); Mean Corp Hgb Conc 27.4 g/dL (32-36); Mean Corpuscular Volume 108.4 fL (81-99); Mean Platelet Vol. 9.5 fl (6.2-12.0); NRBC Flagged by Analyzer 0.3 % (0-5); POSITIVE DIFFERENTIAL YES; Platelet Count 252 K/mm3 (150-450); RBC Distribution Width CV 13.2 % (11.6-14.6); RBC Distribution Width SD 52.7 fl (35.1-43.9); Red Blood Count 2.86 M/mm3 (4.2-5.4); White Blood Count 11.8 K/mm3 (4.4-11.0)
[2025-01-29 06:03] LABS: Differential Indicated SCAN CRITERIA MET
[2025-01-29 06:47] LABS: Anion Gap 5 (5-15); BUN 8 mg/dL (4-19); BUN/Creat Ratio 12.5 RATIO (10-20); Calcium,Total 8.9 mg/dL (7.6-11.0); Carbon Dioxide 45.2 mmol/L (21.0-32.0); Chloride 94 mmol/L (98-108); Estimated Creatinine Clearance 67.29 ml/min (50-250); Glucose 129 mg/dL (70-99); Potassium 3.0 mmol/L (3.3-5.1)
[2025-01-29] MEDS: Pantoprazole Sodium 40 MG in 0.9% Normal Saline (100mL MB+) 100 ML 330 MG IV ×2 (08:46→21:08)
--- NOTE | 2025-01-29 09:53 | PN.HOSP_ITS ---
Subjective Subjective General surgery discussed the situation with her mother who feels that we will proceed with hospice secondary to the extensiveness of her cancer and her inability to tolerate chemotherapy. If possible she would like to have hosp[place] done [place] [facility] [place] Objective Data Objective Data Vital Signs: Vital Signs Temp Pulse Resp BP Pulse Ox O2 Del Method O2 Flow Rate 97.8 F 80 18 93/68 98 Bi-pap 3 01/29/25 08:33 01/29/25 08:33 01/29/25 08:33 01/29/25 08:33 01/29/25 08:33 01/29/25 08:33 01/29/25 03:40 FiO2 35 01/29/25 07:06 Oxygen Flow Rate (L/min) 3 Oxygen Delivery Method Bi-pap Weight: 99 lb 3.328 oz Body Mass Index (BMI) 16.5 Intake & Output: Intake and Output for Last 24 Hours 01/28/25 01/29/25 01/30/25 03:59 03:59 03:59 Intake Total 433.75 / 433.75 1880 / 1880 0 / 0 Output Total 0 / 0 Balance 433.75 / 433.75 1880 / 1880 0 / 0 Lab / Micro Data 01/29/25 05:10 01/29/25 05:10 Labs: Laboratory Results - last 24 hr 01/27/25 06:12: Carcinoembryonic Ag 322.0 H 01/28/25 05:06: Phosphorus 4.5, Magnesium 1.9 01/29/25 05:10: WBC 11.8 H, RBC 2.86 L, Hgb 8.5 L, Hct 31.0 L, MCV 108.4 H, MCH 29.7, MCHC 27.4 L, RDW Std Deviation 52.7 H, RDW Coeff of Sarah 13.2, Plt Count 252, MPV 9.5, Immature Gran % (Auto) 0.800, Neut % (Auto) 80.6 H, Lymph % (Auto) 5.0 L, Mcdonald % (Auto) 13.0 H, Eos % (Auto) 0.3, Baso % (Auto) 0.3, Absolute Neuts (auto) 9.5 H, Absolute Lymphs (auto) 0.59 L, Nucleated RBC % 0.3, Sodium 144, P otassium 3.0 L, Chloride 94 L, Carbon Dioxide 45.2 H*, Anion Gap 5, BUN 8, C reatinine 0.60 L, Estim Creat Clear Calc 67.29, Est GFR (MDRD) Non-Af 100, BUN/Creatinine Ratio 12.5, Glucose 129 H, Calcium 8.9 Micro: Microbiology 01/25/25 16:50 Stool Stool Occult Blood (ANT) - Final Occult Blood Positive Physical Exam Narrative General: Alert, oriented x2, Cooperative, on BiPAP HEENT: Atraumatic, PERRLA, EOMI, Normocephalic Oral: Moist Mucosa Neck: Supple, No JVD Lungs: Diminished, Normal air movement, No rhonchi, No wheeze, No rales Cardiovascular: Regular rate, Regular Rhythm, Normal S1, Normal S2, No murmurs Abdomen: Soft, Non Tender, Non-Distended, No Hepato-splenomegaly Extremities: No edema, Capillary Refill Less than 3 Seconds Skin: No rashes, No breakdown Musculoskeletal: No Tenderness to Palpation of Joints or Extremities Neurological: No focal neurological deficits, moves all extremities Psych/Mental Status: Normal Affect, Appropriate Assessment & Plan Assessment/Plan (1) Generalized weakness: (2) Anemia: QUALIFIERS: Anemia type: unspecified type Qualified Code(s): D 64.9 - Anemia, unspecified PLAN: Plan 1. Generalized weakness and falls with shortness of breath secondary to anemia from a GI bleed secondary to a metastatic colon cancer in the right hepatic flexure as well as iron deficiency and low vitamin B12/GERD – She has been having dark stools for about 10 days before admission – Hemoccult is positive – Hemoglobin has stabilized – Appreciate GI assistance, EGD was unremarkable, colonoscopy demonstrated a right hepatic flexure colon mass with biopsies and CT of the chest abdomen pelvis demonstrates extensive metastatic disease to the liver – General Surgery had discussion with the mother about potential surgical intervention, oncology also evaluated the patient did not feel that she was a candidate for chemotherapy and the mother did not think that she would be able to handle surgery or chemotherapy so would like to speak with hospice today about possible transfer to SNF closer to her house to do hospice there – Continue with PPI – PT/OT 2. Essential HTN – She states that she is not on Lasix anymore – Continue with metoprolol – Will monitor and make adjustments as necessary – She had an echo 08/19/2024 with an EF of 70% and a mildly dilated right ventricle 3. COPD with acute hypercapnic respiratory failure –ABG demonstrated a pCO2 of 135 necessitating initiation of BiPAP, after about an hour her pCO2 was 80 and her pH improved from 7.2 up to 7.35 – Continue with her home inhalers – Recommend BiPAP while sleeping DVT: SCDs Charges/Coding Visit Charges Inpatient E&M: 97931 [facility] Hosp L2
[2025-01-29] MEDS: Potassium Chloride 10mEq/100mL 10 MEQ/100 ML IV.SOLN. 100 MEQ IV BOLUS ×4 (11:02→17:30)
--- NOTE | 2025-01-29 11:51 | PCM.PN.SRG ---
Subjective Subjective Patient seen and evaluated on rounds this morning. Patient and her mother met with medical oncology yesterday and they are not offering chemotherapy due to her poor overall health as well as the extensiveness of her disease. Oncology is recommending hospice and patient as well as family are in agreement. Objective Data Objective Data Vital Signs: Vital Signs Temp Pulse Resp BP Pulse Ox O2 Del Method O2 Flow Rate 97.8 F 80 18 93/68 98 Nasal Cannula 4 01/29/25 08:33 01/29/25 08:33 01/29/25 08:33 01/29/25 08:33 01/29/25 08:33 01/29/25 10:00 01/29/25 10:00 FiO2 35 01/29/25 07:06 Oxygen Flow Rate (L/min) 4 Oxygen Delivery Method Nasal Cannula Weight: 99 lb 3.328 oz Body Mass Index (BMI) 16.5 Intake & Output: Intake and Output for Last 24 Hours 01/27/25 01/28/25 01/29/25 23:59 23:59 23:59 Intake Total 573.50 / 573.50 1880 / 1880 100 / 100 Output Total 0 / 0 Balance 573.50 / 573.50 1880 / 1880 100 / 100 Lab / Micro Data 01/29/25 05:10 01/29/25 05:10 Labs: Laboratory Results - last 24 hr 01/27/25 06:12: Carcinoembryonic Ag 322.0 H 01/28/25 05:06: Phosphorus 4.5, Magnesium 1.9 01/29/25 05:10: WBC 11.8 H, RBC 2.86 L, Hgb 8.5 L, Hct 31.0 L, MCV 108.4 H, MCH 29.7, MCHC 27.4 L, RDW Std Deviation 52.7 H, RDW Coeff of Sarah 13.2, Plt Count 252, MPV 9.5, Immature Gran % (Auto) 0.800, Neut % (Auto) 80.6 H, Lymph % (Auto) 5.0 L, [place] % (Auto) 13.0 H, Eos % (Auto) 0.3, Baso % (Auto) 0.3, Absolute Neuts (auto) 9.5 H, Absolute Lymphs (auto) 0.59 L, Nucleated RBC % 0.3, Sodium 144, Potassium 3.0 L, Chloride 94 L, Carbon Dioxide 45.2 H*, Anion Gap 5, BUN 8, Creatinine 0.60 L, Estim Creat Clear Calc 67.29, Est GFR (MDRD) Non-Af 100, BUN/Creatinine Ratio 12.5, Glucose 129 H, Calcium 8.9 Micro: Microbiology 01/25/25 16:50 Stool Stool Occult Blood (ANT) - Final Occult Blood Positive Physical Exam Narrative She is awake and alert. She is in no acute distress. Assessment & Plan Assessment/Plan (1) Metastasis to liver: (2) Colonic mass: PLAN: Plan The patient is a 64-year-old female with poor overall health who was recently found to have an invasive colon cancer along with extensive liver metastasis. She has met with medical oncology and they do not feel that she is a candidate for chemotherapy. She originally presented with anemia likely related to the tumor. The family is meeting with hospice later today. They are requesting no surgical intervention. We will plan to cancel the tentatively planned colectomy surgery on Saturday. Please contact us if any questions or concerns arise. Dr. Hayes is covering the weekend weekend if needed Charges/Coding Visit Charges Inpatient E&M: [id number] Subs Hosp L2
--- NOTE | 2025-01-29 12:15 | CASEMGMT ---
Social Work SW met with pt and with pt's mother to discuss discharge plan. Pt and mother state that they have talked to multiple physicians and have made decision for pt to go with hospice. SW spoke with physician who is agreeable with this plan. Pt is unable to return home alone and will need SNF placement. Pt previously accepted at [facility], however this is a great distance for pt's mother to drive. SW spoke with pt and mother about other SNF options and A list of SNF providers including quality and resource use data and consistent with the patient’s preferred geographic region, medical needs, and insurance network were provided from the [employer] Guide. Pt is agreeable to go to a SNF in [place] where pt's mother lives. Preferred providers are 1. [facility]. [facility]. [facility]. TMAMY assistant infant toddler teacher updated and referrals to be made. Once a facility is found, SW will make referral to the hospice agency that goes to that facility. Pt and mother agreeable to this. Emotional support provided. RUMA Kahn
--- NOTE | 2025-01-29 12:55 | CASEMGMT ---
Addendum entered by Celena Oneal 01/29/25 14:11: [facility] has declined d/t no female bed availability. Celena Oneal DC Planning Asst. Original Note: Discharge Planning Referral sent via [facility] to [facility]. Celena Oneal DC Planning Asst.
--- NOTE | 2025-01-29 15:01 | CASEMGMT ---
Discharge Planning Referral sent to [facility] and they declined d/t no bed availability. Celena Oneal DC Planning Asst.
--- NOTE | 2025-01-29 15:02 | CASEMGMT ---
Addendum entered by Celena Oneal 01/29/25 15:08: [facility] declined d/t being [id number]. SW updated. Celena Oneal DC Planning Asst. Original Note: Discharge Planning Referral sent to [facility]. Celena Oneal DC Planning Asst.
--- NOTE | 2025-01-29 15:28 | CASEMGMT ---
Addendum entered by Celena Oneal 01/29/25 16:09: [facility] declined d/t being [id number]. SW updated. Celena Oneal DC Planning Asst. Original Note: Discharge Planning Referral sent to [facility]. Celena Oneal DC Planning Asst.
--- NOTE | 2025-01-29 15:31 | CASEMGMT ---
Social Work All three facilities in [place] declined pt. FERNANDO met with pt and pt mother. Mother does not want to try at [facility] and there are no other facilities in this [facility]. FERNANDO reviewed SNF list with mother. Next choice is [facility]. TAMMY recruitment assistant updated and referral made. RUMA [place]
--- NOTE | 2025-01-29 15:51 | CHAPLAIN ---
Type of Pastoral Visit ___ Initial Visit _x__ Follow-up Visit ___ On-call Visit ___ General Patient Visit ___ Spiritual Assessment ___ Family Conference ___ Bereavement ___ Rapid Response ___ Code Blue ___ Other (describe below) Pastoral Care Referral From ___ Patient _x__ Family ___ Nurse ___ Physician ___ Cooling Tower Technician ___ Digital Strategy Manager ___ Other (describe below) Sacrament/Intervention _x__ Active listening ___ Anointing ___ Yazidism ___ Bereavement ___ Communion ___ Rakel exploration ___ ___ Life review ___ Prayer ___ Reconciliation ___ Sacrament of Sick _x__ Supportive presence ___ Wedding ___ Other (describe below) Pastoral Comments patient and her mother are in the room again today; pt says that she is feeling a little better and is now slowly eating; learned more about their family and discovered that it is small and limited; mother is more talkative and explains that they are deciding on "hospice" and going to a facility in [place] but which one is not yet confirmed; asked patient about her feelings and about the future placement; pt is not expressive about it all but does say that she appreciates the visits and concerns; offered future support as desired
--- NOTE | 2025-01-29 16:15 | CASEMGMT ---
Social Work SW informed pt's mother that [facility] cannot accept. SW reviewed list again with mother. Next choices are [facility] and [facility]. If these facilities cannot accept pt, then mother is agreeable to [facility]. DC bilingual sales assistant updated and referrals to be sent. Hospice to be set up once a facility is obtained. Physician updated. RUMA Kahn
--- NOTE | 2025-01-29 16:21 | CASEMGMT ---
Discharge Planning A list of SNF providers including quality and resource use data and consistent with the patient's preferred geographic region, medical needs, and insurance network was created in CarePort Guide. This list was provided to the pts mother. Pts mother wanted list with [facility] star rating. Celena Onela, Discharge Planning Asst.
--- NOTE | 2025-01-29 16:24 | CASEMGMT ---
Addendum entered by Celena Oneal 02/01/25 14:53: [facility] has declined. SW updated. Celena Oneal DC Planning Asst. Addendum entered by Celena Oneal 02/01/25 09:33: Updates sent to both [facility] and [facility] with note inquiring about status of referrals. Celena Oneal DC Planning Asst. Original Note: Discharge Planning [facility] and [facility]. Celena Oneal DC Planning Asst.
[2025-01-30] VITALS (9 sets, daily range): BP systolic 113–138; BP diastolic 75–87; PULSE 77–102; RESP 15–22; TEMP 36.8–37.5; O2SAT 40–100; BMI 17.0
[2025-01-30] MEDS: 0.9% Saline Lock 10 ML Syringe IV ×2 (04:10→21:47)
--- NOTE | 2025-01-30 07:43 | CASEMGMT ---
Addendum entered by Nell Loya 02/01/25 16:41: Social Work SW went back to speak w/pt and her mother, pt's mother had stepped out. SW let pt know we are hoping to hear back from [facility] that pt can go there. Pt states she isn't sure she wants to go to [facility]. SW inquired why, pt states she does not know if she wants to go to [place]. SW explained the reason the referral was made is that it is close to her mother. SW updated the RN. She reports pt is confused, and she will let pt's mother know that we are hopeful [facility] can take pt. SW will continue to follow. CYNDEE Lowe Addendum entered by Nell Loya 01/30/25 13:49: Social Work SW checked Careport again this afternoon, no responses from the care home facilities that received referrals yesterday. It is not anticipated we will get a response. SW to follow up on Saturday. CYNDEE Lowe Original Note: Social Work SW checked Careport this morning, no responses from the care home facilities yet this morning where referrals were made yesterday. SW will continue to follow. CYNDEE Lowe
--- NOTE | 2025-01-30 09:40 | CPS ---
Patient refusing to wear oxygen or bipap when advised that she needs it. Pt angry and non-compliant even though rt reiterated the importance. Nurse Octavia informed and aware of the situation.
[2025-01-30] MEDS: Pantoprazole Sodium 40 MG in 0.9% Normal Saline (100mL MB+) 100 ML 330 MG IV ×2 (10:39→21:47)
--- NOTE | 2025-01-30 12:25 | PCM.PN.HOSP ---
Reason for Visit Chief Complaint: SOB and Fall with Generalized Weakness. Objective Data Objective Data Vital Signs: Vital Signs Temp Pulse Resp BP Pulse Ox O2 Del Method O2 Flow Rate 98.2 F 100 17 124/86 H 100 Nasal Cannula 2 01/30/25 10:34 01/30/25 10:34 01/30/25 10:34 01/30/25 10:34 01/30/25 10:34 01/30/25 10:34 01/30/25 10:34 FiO2 40 01/30/25 09:05 Oxygen Flow Rate (L/min) 2 Oxygen Delivery Method Nasal Cannula Weight: 102 lb 8.239 oz Body Mass Index (BMI) 17.0 Intake & Output: Intake and Output for Last 24 Hours 01/28/25 01/29/25 01/30/25 23:59 23:59 23:59 Intake Total 1880 / 1880 1300 / 1300 100 / 100 Output Total 0 / 0 0 / 0 Balance 1880 / 1880 1300 / 1300 100 / 100 Lab / Micro Data 01/29/25 05:10 01/29/25 05:10 Micro: Microbiology 01/25/25 16:50 Stool Stool Occult Blood (ANT) - Final Occult Blood Positive Physical Exam Narrative Seen and examined Patient is on hospice care DNR CC. Pending transfer to inpatient detention but pending pre-CERT from insurance Physical exam General: Alert, Oriented x3, Cooperative HEENT: Atraumatic, PERRLA, EOMI, Normocephalic. Oral: No Gingival or Mucosal Lesions/ Ulcerations Neck: Supple, No JVD, Negative Carotid Bruits Chest wall/Lungs: Air entry diminished in bilateral lung bases. No crepitation/rhonchi Cardiovascular: Regular rate and rhythm, Normal S1,S2, No M/G/R Abdomen: Examined on sitting position, cannot lay supine. Bowel Sounds sluggish, abdomen distended, tympanic note : No dysuria. No renal angle tenderness. No suprapubic tenderness. Extremities: both lower legs, 2 edema, Capillary Refill Less than 3 Seconds Skin: No rashes, No breakdown Musculoskeletal: No Tenderness to Palpation of Joints or Extremities Neurological: Cranial nerves II-XII grossly intact, DTR 2+/4. No acute focal neurological deficit. Psych/Mental Status: Flat affect. Pain Assessment & Plan Assessment/Plan (1) Generalized weakness: (2) Anemia: QUALIFIERS: Anemia type: unspecified type Qualified Code(s): D64.9 - Anemia, unspecified PLAN: Plan 1. Generalized weakness and falls with shortness of breath secondary to anemia from a GI bleed secondary to a metastatic colon cancer in the right hepatic flexure as well as iron deficiency and low vitamin B12/GERD – She has been having dark stools for about 10 days before admission – Hemoccult is positive – Hemoglobin has stabilized – Appreciate GI assistance, EGD was unremarkable, colonoscopy demonstrated a right hepatic flexure colon mass with biopsies and CT of the chest abdomen pelvis demonstrates extensive metastatic disease to the liver – General Surgery had discussion with the mother about potential surgical intervention, oncology also evaluated the patient did not feel that she was a candidate for chemotherapy and the mother did not think that she would be able to handle surgery or chemotherapy so would like to speak with hospice today about possible transfer to SNF closer to her house to do hospice there – Continue with PPI – PT/OT 01/30: Discussed with patient's mother. Patient not able to lay down/supine position to examine the belly. Abdomen looks distended more like gaseous distention with tympanic note. Symptomatic management. 2. Essential HTN – She states that she is not on Lasix anymore – Continue with metoprolol – Will monitor and make adjustments as necessary – She had an echo 08/19/2024 with an EF of 70% and a mildly dilated right ventricle 01/30: Heart rate and blood pressure controlled. On 2 L of oxygen 3. COPD with acute hypercapnic respiratory failure –ABG demonstrated a pCO2 of 135 necessitating initiation of BiPAP, after about an hour her pCO2 was 80 and her pH improved from 7.2 up to 7.35 – Continue with her home inhalers – Recommend BiPAP while sleeping 01/30 on 2 L of oxygen. Respiratory 20/min. BiPAP at night DVT: SCDs Charges/Coding Visit Charges Inpatient E&M: 72130 Subs Hosp L2
[2025-01-31 03:00] VITALS: PULSE 98
[2025-01-31 04:01] VITALS: BP 123/75; PULSE 96; RESP 14; TEMP 36.9; O2SAT 94
--- NOTE | 2025-01-31 04:26 | NURSING ---
Pt monitor alarmed that her SpO2 was low. This RN to room. Pt SpO2 was in the low 70s. Woke pt up and encouraged her to take deep breaths through her nose. Increased pt supplemental O2 to 10L. Pt SpO2 recovered to the high 90s. Pt weaned back to 2L. A short time later, pt noted to be desaturating again. Again increased O2 and subsequently weaned her back to 4L. Pt refused wanting to wear bipap. Pt then stated she would try bipap if she could have a larger mask. This RN called respiratory to explain situation. Respiratory therapist to pt room at this time.
[2025-01-31 04:28] VITALS: BMI 16.9
[2025-01-31 06:33] VITALS: O2SAT 94
[2025-01-31 09:26] VITALS: BP 132/93; PULSE 93; RESP 14; TEMP 36.3; O2SAT 100
[2025-01-31] MEDS: Pantoprazole Sodium 40 MG in 0.9% Normal Saline (100mL MB+) 100 ML 330 MG IV ×2 (09:30→21:11)
[2025-01-31] MEDS: 0.9% Saline Lock 10 ML Syringe IV (09:30)
[2025-01-31] MEDS: Senna/Docusate Sodium 1 Tablet 2 TABLET PO (10:04)
--- NOTE | 2025-01-31 11:06 | PN.HOSP_ITS ---
Reason for Visit Chief Complaint: SOB and Fall with Generalized Weakness. Objective Data Objective Data Vital Signs: Vital Signs Temp Pulse Resp BP Pulse Ox O2 Del Method O2 Flow Rate 97.4 F L 93 14 132/93 H 100 Nasal Cannula 3 01/31/25 09:26 01/31/25 09:26 01/31/25 09:26 01/31/25 09:26 01/31/25 09:26 01/31/25 09:44 01/31/25 09:26 FiO2 40 01/30/25 09:05 Oxygen Flow Rate (L/min) 3 Oxygen Delivery Method Nasal Cannula Weight: 101 lb 12.8 oz Body Mass Index (BMI) 16.9 Intake & Output: Intake and Output for Last 24 Hours 01/29/25 01/30/25 01/31/25 23:59 23:59 23:59 Intake Total 1300 / 1300 680 / 680 100 / 100 Output Total 0 / 0 825 / 825 Balance 1300 / 1300 -145 / -145 100 / 100 Lab / Micro Data 01/29/25 05:10 01/29/25 05:10 Micro: Microbiology 01/25/25 16:50 Stool Stool Occult Blood (ANT) - Final Occult Blood Positive Physical Exam Narrative Seen and examined Patient is on hospice care DNR CC. Pending transfer to inpatient correction but pending pre-CERT from insurance Patient has not moved bowels for 5 days. Mild abdominal distention Physical exam General: Alert, Oriented x3, Cooperative HEENT: Atraumatic, PERRLA, EOMI, Normocephalic. Oral: No Gingival or Mucosal Lesions/ Ulcerations Neck: Supple, No JVD, Negative Carotid Bruits Chest wall/Lungs: Air entry diminished in bilateral lung bases. No crepitation/rhonchi Cardiovascular: Regular rate and rhythm, Normal S1,S2, No M/G/R Abdomen: Bowel Sounds sluggish, abdomen distended, tympanic note seems more gaseous distention. : No dysuria. No renal angle tenderness. No suprapubic tenderness. Extremities: both lower legs, 2 edema, Capillary Refill Less than 3 Seconds Skin: No rashes, No breakdown Musculoskeletal: No Tenderness to Palpation of Joints or Extremities Neurological: Cranial nerves II-XII grossly intact, DTR 2+/4. No acute focal neurological deficit. Psych/Mental Status: Flat affect. Pain Assessment & Plan Assessment/Plan (1) Generalized weakness: (2) Anemia: QUALIFIERS: Anemia type: unspecified type Qualified Code(s): D 64.9 - Anemia, unspecified PLAN: Plan 1. Generalized weakness and falls with shortness of breath secondary to anemia from a GI bleed secondary to a metastatic colon cancer in the right hepatic flexure as well as iron deficiency and low vitamin B12/GERD – She has been having dark stools for about 10 days before admission – Hemoccult is positive – Hemoglobin has stabilized – Appreciate GI assistance, EGD was unremarkable, colonoscopy demonstrated a right hepatic flexure colon mass with biopsies and CT of the chest abdomen pelvis demonstrates extensive metastatic disease to the liver – General Surgery had discussion with the mother about potential surgical intervention, oncology also evaluated the patient did not feel that she was a candidate for chemotherapy and the mother did not think that she would be able to handle surgery or chemotherapy so would like to speak with hospice today about possible transfer to SNF closer to her house to do hospice there – Continue with PPI – PT/OT 01/30: Discussed with patient's mother. Patient not able to lay down/supine position to examine the belly. Abdomen looks distended more like gaseous distention with tympanic note. Symptomatic management. On 01/31: Patient might have ileus therefore abdominal distention with gastric distention. Stool softener was started yesterday and increase the dose. Morphine dose is decreased. 2. Essential HTN – She states that she is not on Lasix anymore – Continue with metoprolol – Will monitor and make adjustments as necessary – She had an echo 08/19/2024 with an EF of 70% and a mildly dilated right ventricle 01/30: Heart rate and blood pressure controlled. On 2 L of oxygen 3. COPD with acute hypercapnic respiratory failure –ABG demonstrated a pCO2 of 135 necessitating initiation of BiPAP, after about an hour her pCO2 was 80 and her pH improved from 7.2 up to 7.35 – Continue with her home inhalers – Recommend BiPAP while sleeping 01/30 on 2 L of oxygen. Respiratory 20/min. BiPAP at night DVT: SCDs Charges/Coding Visit Charges Inpatient E&M: 49858 Subs Hosp L2
[2025-01-31 16:00] VITALS: BP 115/87; PULSE 86; RESP 14; TEMP 36.6; O2SAT 100
[2025-01-31 21:10] VITALS: BP 112/84; PULSE 87; RESP 20; TEMP 36.8; O2SAT 100
[2025-02-01] VITALS (8 sets, daily range): BP systolic 106–153; BP diastolic 72–110; PULSE 78–108; RESP 18; TEMP 36.1–36.9; O2SAT 90–100; BMI 19.3
[2025-02-01] MEDS: 0.9% Saline Lock 10 ML Syringe IV (02:00)
[2025-02-01] MEDS: Albuterol 2.5 MG/3 ML VIAL.NEB. INHALATION (05:22)
--- NOTE | 2025-02-01 09:39 | TREXTCAR_ITS ---
Diet Diet Order/Speech Therapy: INPATIENT Hospital Diet / Speech Therapy Order(s) 01/27/25 20:29 Diet: Cardiac - Heart Healthy Problem/Diagnosis (1) Generalized weakness: Status: Acute Code(s): R53.1 - Weakness (2) Anemia: Status: Acute Code(s): D64.9 - Anemia, unspecified Plan 1. Generalized weakness and falls with shortness of breath secondary to anemia from a GI bleed secondary to a metastatic colon cancer in the right hepatic flexure as well as iron deficiency and low vitamin B12/GERD – She has been having dark stools for about 10 days before admission – Hemoccult is positive – Hemoglobin has stabilized – Appreciate GI assistance, EGD was unremarkable, colonoscopy demonstrated a right hepatic flexure colon mass with biopsies and CT of the chest abdomen pelvis demonstrates extensive metastatic disease to the liver – General Surgery had discussion with the mother about potential surgical intervention, oncology also evaluated the patient did not feel that she was a candidate for chemotherapy and the mother did not think that she would be able to handle surgery or chemotherapy so would like to speak with hospice today about possible transfer to SNF closer to her house to do hospice there – Continue with PPI – PT/OT 01/30: Discussed with patient's mother. Patient not able to lay down/supine position to examine the belly. Abdomen looks distended more like gaseous distention with tympanic note. Symptomatic management. 01/31: Patient might have ileus therefore abdominal distention with gastric distention. Stool softener was started yesterday and increase the dose. Morphine dose is decreased. 02/01: Patient moved bowel movement today. Pending pre-CERT for transfer to inpatient hospice to correction. 2. Essential HTN – She states that she is not on Lasix anymore – Continue with metoprolol – Will monitor and make adjustments as necessary – She had an echo 08/19/2024 with an EF of 70% and a mildly dilated right ventricle 01/30: Heart rate and blood pressure controlled. On 2 L of oxygen 3. COPD with acute hypercapnic respiratory failure –ABG demonstrated a pCO2 of 135 necessitating initiation of BiPAP, after about an hour her pCO2 was 80 and her pH improved from 7.2 up to 7.35 – Continue with her home inhalers – Recommend BiPAP while sleeping 01/30 on 2 L of oxygen. Respiratory 20/min. BiPAP at night DVT: SCDs Allergies/Procedures Done in Hospital Allergies Sulfa (Sulfonamide Antibiotics) Allergy (Intermediate, Verified 01/24/25 18:17) Other red face increase pulse Latex, Natural Rubber Allergy (Verified 01/24/25 18:17) Rash nabumetone Adverse Reaction (Intermediate, Verified 01/24/25 18:17) Other meloxicam Adverse Reaction (Mild, Verified 01/24/25 18:17) Nausea Dietary and Speech Recommendations Dietitian Recommendations/Changes: Adjust to liberal regular diet due to signs and symptoms of malnutrition along with possible hospice. Pt refuses ONS. Discharge Plan Admission Admit Date/Time: 01/25/25 15:10 Attending Provider: Rodney Pastrana Primary Care Provider: Jose Carlos Lang Consulting Providers: Vance Paulino; Matt Rodriguez; José Darling; Vance King; Skuumar Nieves; Rigo De La Rosa; Samantha Keys; Ernesto Smith; Sunday Sarkar; Jose Yates; Amaury Chairez; Linda Suarez [employer]AD[employer]UTION ARCHITECT; Vance Bacon; Ginny Lehman; Yecenia Richardson; Karli Varma; Tammy Taylor [employer]AD[employer]UTION ARCHITECT; Chelsea Quintanilla; Antonio Olivas Discharge Orders/Prescriptions Prescriptions: No Action polyethylene glycol 3350 [Miralax] 17 gram/dose powder 17 g PO BID PRN (Reason: Constipation) Linzess 290 mcg capsule 290 mcg PO QAM Qty: 90 1RF Rx Instructions: take one every day 30 minutes before first meal (DME) nebulizer accessories Kit See Rx Instructions .Route Qty: 1 0RF Rx Instructions: As directed acetaminophen 500 mg tablet 1,000 mg PO Q6H PRN (Reason: pain) furosemide 40 mg Tablet 40 mg PO BIDLX Qty: 28 0RF ipratropium-albuterol 0.5 mg-3 mg(2.5 mg base)/3 mL Solution For Nebulization 3 ml inhalation Q4H PRN (Reason: COPD, exacerbation, hypoxia) Qty: 90 0RF albuterol sulfate 2.5 mg /3 mL (0.083 %) Solution For Nebulization 2.5 mg inhalation Q2H PRN (Reason: Dyspnea, wheezing) Qty: 75 0RF lansoprazole 30 mg capsule,delayed release(DR/EC) 30 mg PO DAILY Qty: 30 0RF hydroxyzine HCl 25 mg tablet 25 mg PO QHS PRN (Reason: sleep) Qty: 30 0RF Patient Comments: PT DOESNT TAKE OFTEN BECAUSE IT CAUSES BREATHING PROBLEMS. metoprolol tartrate 25 mg tablet 12.5 mg PO BID Qty: 30 0RF (DME) OXYGEN - Supplemental ([facility] INFORMATIONAL USE ONLY) 0 .ROUTE .MEDSUPPLY Patient Comments: patient wears 3 liters at home, 4 liters on exertion DME:[employer] Referrals / Follow Up: Jose Carlos Lang MD [Primary Care Provider, Family Practice]
[2025-02-01] MEDS: Senna/Docusate Sodium 1 Tablet 2 TABLET PO ×2 (10:06→21:57)
[2025-02-01] MEDS: Pantoprazole Sodium 40 MG in 0.9% Normal Saline (100mL MB+) 100 ML 330 MG IV (10:07)
--- NOTE | 2025-02-01 13:43 | PN.HOSP_ITS ---
Reason for Visit Chief Complaint: SOB and Fall with Generalized Weakness. Objective Data Objective Data Vital Signs: Vital Signs Temp Pulse Resp BP Pulse Ox O2 Del Method O2 Flow Rate 98.4 F 78 18 106/82 H 100 Nasal Cannula 4 02/01/25 10:23 02/01/25 10:23 02/01/25 10:23 02/01/25 10:23 02/01/25 10:23 02/01/25 10:23 02/01/25 10:23 FiO2 40 01/30/25 09:05 Oxygen Flow Rate (L/min) 4 Oxygen Delivery Method Nasal Cannula Weight: 116 lb 2.938 oz Body Mass Index (BMI) 19.3 Intake & Output: Intake and Output for Last 24 Hours 01/30/25 01/31/25 02/01/25 23:59 23:59 23:59 Intake Total 680 / 680 600 / 600 100 / 100 Output Total 825 / 825 400 / 400 400 / 400 Balance -145 / -145 200 / 200 -300 / -300 Lab / Micro Data 01/29/25 05:10 01/29/25 05:10 Micro: Microbiology 01/25/25 16:50 Stool Stool Occult Blood (ANT) - Final Occult Blood Positive Physical Exam Narrative Seen and examined Patient is on hospice care DNR CC. Patient moved bowels today Abdominal distention better. Physical exam General: Alert, Oriented x3, Cooperative HEENT: Atraumatic, PERRLA, EOMI, Normocephalic. Oral: No Gingival or Mucosal Lesions/ Ulcerations Neck: Supple, No JVD, Negative Carotid Bruits Chest wall/Lungs: Air entry diminished in bilateral lung bases. No crepitation/rhonchi Cardiovascular: Regular rate and rhythm, Normal S1,S2, No M/G/R Abdomen: Bowel Sounds sluggish, mild abdominal distention. : No dysuria. No renal angle tenderness. No suprapubic tenderness. Extremities: both lower legs, 2 edema, Capillary Refill Less than 3 Seconds Skin: No rashes, No breakdown Musculoskeletal: No Tenderness to Palpation of Joints or Extremities Neurological: Cranial nerves II-XII grossly intact, DTR 2+/4. No acute focal neurological deficit. Psych/Mental Status: Flat affect. Pain Assessment & Plan Assessment/Plan (1) Generalized weakness: (2) Anemia: QUALIFIERS: Anemia type: unspecified type Qualified Code(s): D 64.9 - Anemia, unspecified PLAN: Plan 1. Generalized weakness and falls with shortness of breath secondary to anemia from a GI bleed secondary to a metastatic colon cancer in the right hepatic flexure as well as iron deficiency and low vitamin B12/GERD – She has been having dark stools for about 10 days before admission – Hemoccult is positive – Hemoglobin has stabilized – Appreciate GI assistance, EGD was unremarkable, colonoscopy demonstrated a right hepatic flexure colon mass with biopsies and CT of the chest abdomen pelvis demonstrates extensive metastatic disease to the liver – General Surgery had discussion with the mother about potential surgical intervention, oncology also evaluated the patient did not feel that she was a candidate for chemotherapy and the mother did not think that she would be able to handle surgery or chemotherapy so would like to speak with hospice today about possible transfer to SNF closer to her house to do hospice there – Continue with PPI – PT/OT 01/30: Discussed with patient's mother. Patient not able to lay down/supine position to examine the belly. Abdomen looks distended more like gaseous distention with tympanic note. Symptomatic management. 01/31: Patient might have ileus therefore abdominal distention with gastric distention. Stool softener was started yesterday and increase the dose. Morphine dose is decreased. 02/01: Patient moved bowel movement today. Pending pre-CERT for transfer to inpatient hospice to custodial. 2. Essential HTN – She states that she is not on Lasix anymore – Continue with metoprolol – Will monitor and make adjustments as necessary – She had an echo 08/19/2024 with an EF of 70% and a mildly dilated right ventricle 01/30: Heart rate and blood pressure controlled. On 2 L of oxygen 02/01: Heart rate and blood pressure controlled. Heart rate in 90s. 3. COPD with acute hypercapnic respiratory failure –ABG demonstrated a pCO2 of 135 necessitating initiation of BiPAP, after about an hour her pCO2 was 80 and her pH improved from 7.2 up to 7.35 – Continue with her home inhalers – Recommend BiPAP while sleeping 01/30 on 2 L of oxygen. Respiratory 20/min. BiPAP at night DVT: SCDs Charges/Coding Visit Charges Inpatient E&M: 30372 Subs Hosp L2
[2025-02-01] MEDS: Pantoprazole Sodium 40 MG in 0.9% Normal Saline (100mL MB+) 100 ML 300 MG IV (21:57)
[2025-02-02 04:00] VITALS: BP 120/89; PULSE 84; RESP 18; TEMP 36.3; O2SAT 100
[2025-02-02 04:22] VITALS: BMI 19.2
[2025-02-02 08:09] VITALS: O2SAT 100
--- NOTE | 2025-02-02 08:48 | CASEMGMT ---
Social Work SW called the mother and left a message. HANNA Shoemaker
[2025-02-02 10:01] VITALS: BP 104/76; PULSE 101; RESP 18; TEMP 36.6; O2SAT 98
[2025-02-02] MEDS: Pantoprazole Sodium 40 MG in 0.9% Normal Saline (100mL MB+) 100 ML 330 MG IV ×2 (10:03→22:08)
[2025-02-02] MEDS: Senna/Docusate Sodium 1 Tablet 2 TABLET PO ×2 (10:03→22:09)
[2025-02-02] MEDS: 0.9% Saline Lock 10 ML Syringe IV ×4 (10:04→22:07)
--- NOTE | 2025-02-02 10:37 | CASEMGMT ---
Social Work PASSR completed. HANNA Shoemaker
--- NOTE | 2025-02-02 11:22 | CASEMGMT ---
Social Work SW faxed a hospice referral to [facility]. HANNA Shoemaker
--- NOTE | 2025-02-02 11:57 | CASEMGMT ---
Social Work SW cancelled the hospice referral to [facility] due to the patient wanting to DC to a SNF in [place]. The mother chose [facility]. SW will submit hospice referral to [facility]. HANNA Shoemaker
--- NOTE | 2025-02-02 11:58 | CASEMGMT ---
Social Work This FERNANDO and FERNANDO Orr met with pt and with pt's mother in room to discuss discharge plan. Informed that, as discussed on Saturday, referral was sent to [facility] and they have accepted pt. Pt stating that she has decided she does not want to go to [facility]. SW reviewed reasoning for referral to [place], including proximity to mothers house and ability for mother to visit frequently. Pt stating understanding of this but also that she will not go there and wants to stay in [place]. SW reviewed with pt which facilities in [place] pt would like and pt is requesting [facility], which pt has chosen previously, referral had been made and pt been accepted. DC front office assistant updated and to make new referral. FERNANDO spoke with pt and mother regarding hospice agency used, and since pt is staying in [place], [facility] is requested. PLAN: [facility], PENDING ACCEPTANCE PRECERT WITH [facility] RUMA Kahn
--- NOTE | 2025-02-02 12:00 | CASEMGMT ---
Discharge Planning Call rec'd from Zee @ [facility]. Nearby hospice agencies include; [facility], [facility], [facility], [facility], [facility], and [facility]. She also requested CPAP/BiPAP settings. SW updated. Celena Oneal DC Planning Asst.
--- NOTE | 2025-02-02 12:02 | CASEMGMT ---
Addendum entered by Celena Oneal 02/02/25 14:48: [facility] has been asked to submit for precert. [facility] asked to withdraw precert. Celena Oneal DC Planning Asst. Addendum entered by Celena Oneal 02/02/25 14:02: [facility] has accepted. updated. Celena Oneal DC Planning Asst. Original Note: Discharge Planning Per SW, pt would like to admit to [facility]. left for Tiffany and updates sent via CarePort to check bed availability. Celena Oneal DC Planning Asst.
--- NOTE | 2025-02-02 15:40 | CASEMGMT ---
Social Work SW sent a hospice referral to [facility] per patient request. SW informed the patient and her mother that the patient has been accepted at [facility] and [facility] is requesting approval from her insurance company. HANNA Shoemaker
[2025-02-02 16:09] VITALS: BP 106/79; PULSE 92; RESP 17; TEMP 37.6; O2SAT 100
--- NOTE | 2025-02-02 17:26 | PN.HOSP_ITS ---
Reason for Visit Chief Complaint: SOB and Fall with Generalized Weakness. Objective Data Objective Data Vital Signs: Vital Signs Temp Pulse Resp BP Pulse Ox O2 Del Method O2 Flow Rate 99.6 F H 92 17 106/79 100 Nasal Cannula 3 02/02/25 16:09 02/02/25 16:09 02/02/25 16:09 02/02/25 16:09 02/02/25 16:09 02/02/25 16:09 02/02/25 16:09 FiO2 40 01/30/25 09:05 Oxygen Flow Rate (L/min) 3 Oxygen Delivery Method Nasal Cannula Weight: 115 lb 8.356 oz Body Mass Index (BMI) 19.2 Intake & Output: Intake and Output for Last 24 Hours 01/31/25 02/01/25 02/02/25 23:59 23:59 23:59 Intake Total 600 / 600 200 / 400 420 / 420 Output Total 400 / 400 400 / 400 Balance 200 / 200 -200 / 0 420 / 420 Lab / Micro Data 01/29/25 05:10 01/29/25 05:10 Micro: Microbiology 01/25/25 16:50 Stool Stool Occult Blood (ANT) - Final Occult Blood Positive Physical Exam Narrative Seen and examined Patient had 2 bowel movements yesterday. Patient is on hospice care DNR CC. Waiting for pre-CERT Abdominal distention better. Physical exam General: Alert, Oriented x3, Cooperative HEENT: Atraumatic, PERRLA, EOMI, Normocephalic. Oral: No Gingival or Mucosal Lesions/ Ulcerations Neck: Supple, No JVD, Negative Carotid Bruits Chest wall/Lungs: Air entry diminished in bilateral lung bases. No crepitation/rhonchi Cardiovascular: Regular rate and rhythm, Normal S1,S2, No M/G/R Abdomen: Bowel Sounds sluggish, mild abdominal distention. : No dysuria. No renal angle tenderness. No suprapubic tenderness. Extremities: both lower legs, 2 edema, Capillary Refill Less than 3 Seconds Skin: No rashes, No breakdown Musculoskeletal: No Tenderness to Palpation of Joints or Extremities Neurological: Cranial nerves II-XII grossly intact, DTR 2+/4. No acute focal neurological deficit. Psych/Mental Status: Flat affect. Pain Assessment & Plan Assessment/Plan (1) Generalized weakness: (2) Anemia: QUALIFIERS: Anemia type: unspecified type Qualified Code(s): D 64.9 - Anemia, unspecified PLAN: Plan 1. Generalized weakness and falls with shortness of breath secondary to anemia from a GI bleed secondary to a metastatic colon cancer in the right hepatic flexure as well as iron deficiency and low vitamin B12/GERD – She has been having dark stools for about 10 days before admission – Hemoccult is positive – Hemoglobin has stabilized – Appreciate GI assistance, EGD was unremarkable, colonoscopy demonstrated a right hepatic flexure colon mass with biopsies and CT of the chest abdomen pelvis demonstrates extensive metastatic disease to the liver – General Surgery had discussion with the mother about potential surgical intervention, oncology also evaluated the patient did not feel that she was a candidate for chemotherapy and the mother did not think that she would be able to handle surgery or chemotherapy so would like to speak with hospice today about possible transfer to SNF closer to her house to do hospice there – Continue with PPI – PT/OT 01/30: Discussed with patient's mother. Patient not able to lay down/supine position to examine the belly. Abdomen looks distended more like gaseous distention with tympanic note. Symptomatic management. 01/31: Patient might have ileus therefore abdominal distention with gastric distention. Stool softener was started yesterday and increase the dose. Morphine dose is decreased. 02/01: Patient moved bowel movement today. Pending pre-CERT for transfer [facility]. 02/02: Patient is moving bowel. Still pending pre-CERT. 2. Essential HTN – She states that she is not on Lasix anymore – Continue with metoprolol – Will monitor and make adjustments as necessary – She had an echo 08/19/2024 with an EF of 70% and a mildly dilated right ventricle 01/30: Heart rate and blood pressure controlled. On 2 L of oxygen 02/01: Heart rate and blood pressure controlled. Heart rate in 90s. 02/02: BPs 106/79. No fever but Tmax 99.6 Fahrenheit. 3. COPD with acute hypercapnic respiratory failure –ABG demonstrated a pCO2 of 135 necessitating initiation of BiPAP, after about an hour her pCO2 was 80 and her pH improved from 7.2 up to 7.35 – Continue with her home inhalers – Recommend BiPAP while sleeping 01/30 on 2 L of oxygen. Respiratory 20/min. BiPAP at night DVT: SCDs Charges/Coding Visit Charges Inpatient E&M: 88754 Subs Hosp L2
[2025-02-02 20:09] VITALS: O2SAT 100
[2025-02-02 22:00] VITALS: BP 124/88; PULSE 88; RESP 18; TEMP 36.7; O2SAT 100
[2025-02-03] MEDS: 0.9% Saline Lock 10 ML Syringe IV ×4 (01:43→23:21)
[2025-02-03 01:50] VITALS: O2SAT 98
[2025-02-03 03:16] VITALS: BMI 19.1
[2025-02-03 05:46] VITALS: BP 110/75; PULSE 82; RESP 18; TEMP 36.3; O2SAT 100
[2025-02-03 08:27] VITALS: PULSE 121; RESP 20; O2SAT 99
--- NOTE | 2025-02-03 09:04 | CASEMGMT ---
Social Work FERNANDO spoke with [facility] and the nurse will coming to the hospital today at 230pm to meet with the patient. The patient, and the nurse was notified. FERNANDO called the mother and informed her. She reported she will be here for that meeting. HANNA Shoemaker
--- NOTE | 2025-02-03 10:55 | CASEMGMT ---
[facility] can admit pt anytime after 3p today. SW updated. Celena Oneal DC Planning Asst.
--- NOTE | 2025-02-03 11:00 | RAD_ITS ---
PROCEDURE: ABDOMEN SINGLE VIEW (PORTABLE) 02/03/2025 REASON FOR EXAM: METASTATIC COLON CA TECHNIQUE: Procedure Code: RADABD_P Modality: DX Procedure: Two-view supine abdomen COMPARISON: CT examination of 01/28/2025. RAD/Abdomen Single View (Portable) IMPRESSION: Prominent T12 compression fracture and lesser L1 compression fracture appear si milar to the recent comparison CT examination. Generalized osteopenia is present. The bowel-gas pattern is unremarkable in appearance. No mass or mass effect is seen. Reading Location: [id number]
[2025-02-03] MEDS: Pantoprazole Sodium 40 MG in 0.9% Normal Saline (100mL MB+) 100 ML 330 MG IV ×2 (11:15→21:22)
[2025-02-03] MEDS: Senna/Docusate Sodium 1 Tablet 2 TABLET PO ×2 (11:18→21:23)
[2025-02-03 11:21] VITALS: BP 101/77; PULSE 85; RESP 14; TEMP 36.4; O2SAT 94
--- NOTE | 2025-02-03 11:30 | PCM.DC.SUM ---
Providers Date of Admission: 01/25/25 Date of Discharge: 02/03/25 Primary Care Physician: Dr. Jose Carlos Lang MD Consultations 01/25/25 17:25 Consult: Gastroenterology Routine Consulting Provider: Matt Rodriguez Reason for Consult: + hem test stool EMERGENT Consult: No Notified: Yes Date Notified: 01/25/25 Time Notified: 17:26 Method of Notification: Text 01/27/25 17:35 Consult: General Surgery Routine Consulting Provider: José Darling Reason for Consult: colon cancer EMERGENT Consult: No Notified: Yes Date Notified: 01/27/25 Time Notified: 17:35 Method of Notification: Verbal 01/28/25 13:02 Consult: Oncology/Hematology Routine Consulting Provider: [facility] Reason for Consult: metastatic colon cancer EMERGENT Consult: No Notified: Yes Date Notified: 01/28/25 Time Notified: 13:02 Method of Notification: Verbal 01/28/25 17:05 Consult: Hospice / Outpatient Palliative Care Routine Consulting Provider: [facility] Reason for Consult: cancer EMERGENT Consult: No Notified: Yes Date Notified: 01/28/25 Time Notified: 17:05 Method of Notification: Text Reason For Visit: generalized weakness an sob after fall w/ dark sto Diagnosis Discharge Diagnosis (1) Generalized weakness: Status: Acute Code(s): R53.1 - Weakness (2) Anemia: Status: Acute Code(s): D64.9 - Anemia, unspecified Qualifiers: Anemia type: unspecified type Qualified Code(s): D64.9 - Anemia, unspecified Plan 64-year-old female admitted with generalized weakness and fall with shortness of breath from anemia. 1. Generalized weakness and falls with shortness of breath secondary to anemia from a GI bleed secondary to a metastatic colon cancer in the right hepatic flexure as well as iron deficiency and low vitamin B12/GERD – She has been having dark stools for about 10 days before admission – Hemoccult is positive – Hemoglobin has stabilized – Appreciate GI assistance, EGD was unremarkable, colonoscopy demonstrated a right hepatic flexure colon mass with biopsies and CT of the chest abdomen pelvis demonstrates extensive metastatic disease to the liver – General Surgery had discussion with the mother about potential surgical intervention, oncology also evaluated the patient did not feel that she was a candidate for chemotherapy and the mother did not think that she would be able to handle surgery or chemotherapy so would like to speak with hospice today about possible transfer to SNF closer to her house to do hospice there – Continue with PPI – PT/OT 01/30: Discussed with patient's mother. Patient not able to lay down/supine position to examine the belly. Abdomen looks distended more like gaseous distention with tympanic note. Symptomatic management. 01/31: Patient might have ileus therefore abdominal distention with gastric distention. Stool softener was started yesterday and increase the dose. Morphine dose is decreased. 02/01: Patient moved bowel movement today. Pending [facility]-CERT [facility] 02/02: Patient is moving bowel. Still pending pre-CERT. 02/03: Patient is going to extended-care facility as inpatient hospice status. Follow-up with the [facility] for further hospice care and management 02/03: Pre-CERT received. Discharge med list and transfer paperwork completed. Patient does not need BiPAP [facility] because she is inpatient hospice and has mild abdominal distention with ileus due to colon cancer abdominal distention is getting better with bowel movement.. KUB x-ray done in the morning by GI [employer] and shows the bowel-gas pattern is unremarkable in appearance. No mass or mass effect is seen. 2. Essential HTN – She states that she is not on Lasix anymore – Continue with metoprolol – Will monitor and make adjustments as necessary – She had an echo 08/19/2024 with an EF of 70% and a mildly dilated right ventricle 01/30: Heart rate and blood pressure controlled. On 2 L of oxygen 02/01: Heart rate and blood pressure controlled. Heart rate in 90s. 02/02: BPs 106/79. No fever but Tmax 99.6 Fahrenheit. 02/01 3. COPD with acute hypercapnic respiratory failure –ABG demonstrated a pCO2 of 135 necessitating initiation of BiPAP, after about an hour her pCO2 was 80 and her pH improved from 7.2 up to 7.35 – Continue with her home inhalers – Recommend BiPAP while sleeping 01/30 on 2 L of oxygen. Respiratory 20/min. BiPAP at night DVT: SCDs Medications at Discharge Home Medications nebulizer accessories #1 ea 11/26/21 acetaminophen 500 mg tablet 1,000 mg PO Q6H PRN pain 08/18/24 albuterol sulfate 2.5 mg/3 mL (0.083 %) solution for nebulization 2.5 mg (3 mL) inhalation Q2H PRN Dyspnea, wheezing #75 mL 08/21/24 hydroxyzine HCl 25 mg tablet 25 mg PO QHS PRN sleep #30 tabs 08/21/24 ipratropium 0.5 mg-albuterol 3 mg (2.5 mg base)/3 mL nebulization soln 3 ml inhalation Q4H PRN COPD, exacerbation, hypoxia #90 mL 08/21/24 lansoprazole 30 mg capsule,delayed release 30 mg PO DAILY gerd #30 caps 08/21/24 metoprolol tartrate 25 mg tablet 12.5 mg (1/2 x 25 mg) PO BID heart #30 tabs 08/21/24 linaclotide 290 mcg capsule (Linzess) 290 mcg PO QAM bowel movement #90 caps 09/24/24 polyethylene glycol 3350 17 gram/dose oral powder (Miralax) 17 g PO BID PRN Constipation 09/24/24 OXYGEN - Supplemental ([facility] INFORMATIONAL USE ONLY) 01/28/25 bisacodyl 10 mg rectal suppository 10 mg [place] DAILY #0 ea 02/03/25 cyanocobalamin (vitamin B-12) 500 mcg tablet 1,000 mcg (2 x 500 mcg) PO BREAKFAST #0 tabs 02/03/25 ferrous gluconate 324 mg (37.5 mg iron) tablet 324 mg PO DAILY #0 tabs 02/03/25 furosemide 40 mg tablet 40 mg PO DAILY PRN leg swelling #28 tabs 02/03/25 sennosides 8.6 mg-docusate sodium 50 mg tablet (Stimulant Laxative Plus) 2 tab PO BID #0 tabs 02/03/25 simethicone 80 mg chewable tablet 160 mg (2 x 80 mg) PO 4X/DAY #0 tabs 02/03/25 Physical Exam Narrative Seen and examined Patient had 2 bowel movements yesterday. Patient is on hospice care DNR CC. Waiting for pre-CERT Abdominal distention better. Physical exam General: Alert, Oriented x3, Cooperative HEENT: Atraumatic, PERRLA, EOMI, Normocephalic. Oral: No Gingival or Mucosal Lesions/ Ulcerations Neck: Supple, No JVD, Negative Carotid Bruits Chest wall/Lungs: Air entry diminished in bilateral lung bases. No crepitation/rhonchi Cardiovascular: Regular rate and rhythm, Normal S1,S2, No M/G/R Abdomen: Bowel Sounds sluggish, mild abdominal distention. : No dysuria. No renal angle tenderness. No suprapubic tenderness. Extremities: both lower legs, 2 edema, Capillary Refill Less than 3 Seconds Skin: No rashes, No breakdown Musculoskeletal: No Tenderness to Palpation of Joints or Extremities Neurological: Cranial nerves II-XII grossly intact, DTR 2+/4. No acute focal neurological deficit. Psych/Mental Status: Flat affect. Pain Weight / BMI Weight Weight: 114 lb 10.246 oz Body Mass Index (BMI) 19.1 ABG / Lab / Microbiology Data 01/29/25 05:10 01/29/25 05:10 Microbiology: Microbiology 01/25/25 16:50 Stool Stool Occult Blood (ANT) - Final Occult Blood Positive Radiography Diagnostic Testing: Radiology Impression KUB X-Ray 02/03/25 11:00 IMPRESSION: Prominent T12 compression fracture and lesser L1 compression fracture appear similar to the recent comparison CT examination. Generalized osteopenia is present. The bowel-gas pattern is unremarkable in appearance. No mass or mass effect is seen. Reading Location: [address] D/C Instructions DC O2, CPAP, BIPAP Needs Home O2 Discharge instructions: Yes Type of respiratory needs?: Oxygen Oxygen frequency: Continuous Continuous oxygen liters per minute: 4 Discharge Plan Admission Admit Date/Time: 01/25/25 15:10 Attending Provider: Rodney Pastrana Primary Care Provider: Jose Carlos Lang Consulting Providers: Vance Paulino; Matt Rodriguez; José Darling; Vance King; Sukumar Nieves; Rigo De La Rosa; Samantha Keys; Ernesto Smith; Sunday Sarkar; Jose Yates; Amaury Chairez; Linda Suarez NP; Vance Bacon; Ginny Lehman; Yecenia Richardson; Karli Varma; Tammy Taylor [employer]; Chelsea Quintanilla; Antonio Olivas Discharge Orders/Prescriptions Prescriptions: New cyanocobalamin (vitamin B-12) 500 mcg Tablet 1,000 mcg PO BREAKFAST Qty: 0 0RF bisacodyl 10 mg Suppository 10 mg VA DAILY Qty: 0 0RF ferrous gluconate 324 mg (37.5 mg iron) Tablet 324 mg PO DAILY Qty: 0 0RF sennosides-docusate sodium [Stimulant Laxative Plus] 8.6-50 mg Tablet 2 tab PO BID Qty: 0 0RF simethicone 80 mg Tablet,Chewable 160 mg PO 4X/DAY Qty: 0 0RF Continued polyethylene glycol 3350 [Miralax] 17 gram/dose powder 17 g PO BID PRN (Reason: Constipation) Linzess 290 mcg capsule 290 mcg PO QAM Qty: 90 1RF Rx Instructions: take one every day 30 minutes before first meal (DME) nebulizer accessories Kit See Rx Instructions .Route Qty: 1 0RF Rx Instructions: As directed acetaminophen 500 mg tablet 1,000 mg PO Q6H PRN (Reason: pain) ipratropium-albuterol 0.5 mg-3 mg(2.5 mg base)/3 mL Solution For Nebulization 3 ml inhalation Q4H PRN (Reason: COPD, exacerbation, hypoxia) Qty: 90 0RF albuterol sulfate 2.5 mg /3 mL (0.083 %) Solution For Nebulization 2.5 mg inhalation Q2H PRN (Reason: Dyspnea, wheezing) Qty: 75 0RF lansoprazole 30 mg capsule,delayed release(DR/EC) 30 mg PO DAILY Qty: 30 0RF hydroxyzine HCl 25 mg tablet 25 mg PO QHS PRN (Reason: sleep) Qty: 30 0RF Patient Comments: PT DOESNT TAKE OFTEN BECAUSE IT CAUSES BREATHING PROBLEMS. metoprolol tartrate 25 mg tablet 12.5 mg PO BID Qty: 30 0RF (DME) OXYGEN - Supplemental ([facility] INFORMATIONAL USE ONLY) 0 .ROUTE .MEDSUPPLY Patient Comments: patient wears 3 liters at home, 4 liters on exertion DME:[employer] Changed furosemide 40 mg Tablet 40 mg PO DAILY PRN (Reason: leg swelling) Qty: 28 0RF Referrals / Follow Up: Jose Carlos Lang MD [Primary Care Provider, Family Practice] Disposition Disposition (needs filled in before D/C Order can be placed): Home, Self Care
--- NOTE | 2025-02-03 12:42 | CASEMGMT ---
Addendum entered by Dominga Thornton 02/03/25 14:08: Patient is DC intermediate level to [facility] Addendum entered by Dominga Thornton 02/03/25 13:42: Patient was transported by stretcher. Original Note: Social Work Precert has been obtained. Physician updated and pt is ready for discharge today. PASSR form completed in [facility] and sent along with discharge orders to [facility] via [facility]. Transportation arranged with [facility] ambulance for cot pickup via wheelchair van. Patient will also be DC with [facility]. Disposition: Pt discharge to [facility], skilled level care HANNA Shoemaker
--- NOTE | 2025-02-03 12:58 | PHA.DC_ITS ---
Pharmacy [place] Med Reconciliation Pharmacy Service has performed discharge medication reconciliation for this patient. The patient's discharge medication list was reviewed for discrepancies and discrepancies were resolved. Medications at Discharge Home Medications nebulizer accessories #1 ea 11/26/21 acetaminophen 500 mg tablet 1,000 mg PO Q6H PRN pain 08/18/24 albuterol sulfate 2.5 mg/3 mL (0.083 %) solution for nebulization 2.5 mg (3 mL) inhalation Q2H PRN Dyspnea, wheezing #75 mL 08/21/24 hydroxyzine HCl 25 mg tablet 25 mg PO QHS PRN sleep #30 tabs 08/21/24 ipratropium 0.5 mg-albuterol 3 mg (2.5 mg base)/3 mL nebulization soln 3 ml inhalation Q4H PRN COPD, exacerbation, hypoxia #90 mL 08/21/24 lansoprazole 30 mg capsule,delayed release 30 mg PO DAILY gerd #30 caps 08/21/24 metoprolol tartrate 25 mg tablet 12.5 mg (1/2 x 25 mg) PO BID heart #30 tabs 08/21/24 linaclotide 290 mcg capsule (Linzess) 290 mcg PO QAM bowel movement #90 caps 09/24/24 polyethylene glycol 3350 17 gram/dose oral powder (Miralax) 17 g PO BID PRN Constipation 09/24/24 OXYGEN - Supplemental ([facility] INFORMATIONAL USE ONLY) 01/28/25 bisacodyl 10 mg rectal suppository 10 mg [place] DAILY #0 ea 02/03/25 cyanocobalamin (vitamin B-12) 500 mcg tablet 1,000 mcg (2 x 500 mcg) PO BREAKFAST #0 tabs 02/03/25 ferrous gluconate 324 mg (37.5 mg iron) tablet 324 mg PO DAILY #0 tabs 02/03/25 furosemide 40 mg tablet 40 mg PO DAILY PRN leg swelling #28 tabs 02/03/25 sennosides 8.6 mg-docusate sodium 50 mg tablet (Stimulant Laxative Plus) 2 tab PO BID #0 tabs 02/03/25 simethicone 80 mg chewable tablet 160 mg (2 x 80 mg) PO 4X/DAY #0 tabs 02/03/25
--- NOTE | 2025-02-03 15:42 | CASEMGMT ---
Addendum entered by Dominga Thornton 02/03/25 15:53: The hospice nurse reported that Dr. Pastrana is removing the bi-pap from the DC orders. The nurse reported the patient told her she is not going to use the bi-pap. Original Note: Social Work [place] hosp[facility] nurse meet with the patient. The nurse reported the patient signed on to hospice. The nurse is ordering the equipment and reported it will at the facility by 800pm. Patient is discharging to [facility] intermediate level. Patient will be transported by physicians by cot. PASSR was been completed. HANNA Shoemaker
--- NOTE | 2025-02-03 16:13 | CASEMGMT ---
Social Work The hospice nurse admission visit will be tomorrow at 930am at [facility]. Patient will DC tomorrow to [facility]. Dr. Pastrana decided to keep the patient until tomorrow. FERNANDO spoke with the patient and her mother. Both are aware the DC changed until tomorrow. The patient is okay with DC tomorrow. HANNA Shoemaker
--- NOTE | 2025-02-03 16:24 | CASEMGMT ---
Social Work Transportation is scheduled for 1000am. Hospice nurse will be changes to 1030am. HANNA Shoemaker
[2025-02-03 17:20] VITALS: BP 136/92; PULSE 105; RESP 18; TEMP 36.4; O2SAT 93
--- NOTE | 2025-02-03 17:28 | PN.HOSP_ITS ---
Reason for Visit Chief Complaint: SOB and Fall with Generalized Weakness. Objective Data Objective Data Vital Signs: Vital Signs Temp Pulse Resp BP Pulse Ox O2 Del Method O2 Flow Rate 97.6 F L 105 H 18 136/92 H 93 Nasal Cannula 3 02/03/25 17:20 02/03/25 17:20 02/03/25 17:20 02/03/25 17:20 02/03/25 17:20 02/03/25 17:20 02/03/25 17:20 FiO2 40 02/03/25 08:27 Oxygen Flow Rate (L/min) 3 Oxygen Delivery Method Nasal Cannula Weight: 114 lb 10.246 oz Body Mass Index (BMI) 19.1 Intake & Output: Intake and Output for Last 24 Hours 02/01/25 02/02/25 02/03/25 23:59 23:59 23:59 Intake Total 200 / 400 1180 / 1180 320 / 320 Output Total 400 / 400 Balance -200 / 0 1180 / 1180 320 / 320 Lab / Micro Data 01/29/25 05:10 01/29/25 05:10 Micro: Microbiology 01/25/25 16:50 Stool Stool Occult Blood (ANT) - Final Occult Blood Positive Radiography Diagnostic Testing: Radiology Impression KUB X-Ray 02/03/25 11:00 IMPRESSION: Prominent T12 compression fracture and lesser L1 compression fracture appear similar to the recent comparison CT examination. Generalized osteopenia is present. The bowel-gas pattern is unremarkable in appearance. No mass or mass effect is seen. Reading Location: [address] Physical Exam Narrative Seen and examined Patient having bowel movement. Was seen by GI SUPERVISOR METER REPAIR SHOP and KUB was done. Patient is on hospice care DNR CC. Pre-CERT received but patient will be transported about 730 to 8 PM which will be late and would not get any pain medication or hospice order there. Abdominal distention better. Physical exam General: Alert, Oriented x3, Cooperative HEENT: Atraumatic, PERRLA, EOMI, Normocephalic. Oral: No Gingival or Mucosal Lesions/ Ulcerations Neck: Supple, No JVD, Negative Carotid Bruits Chest wall/Lungs: Air entry diminished in bilateral lung bases. No crepitation/rhonchi Cardiovascular: Regular rate and rhythm, Normal S1,S2, No M/G/R Abdomen: Bowel Sounds sluggish, mild abdominal distention. : No dysuria. No renal angle tenderness. No suprapubic tenderness. Extremities: both lower legs, 2 edema, improving. Capillary Refill Less than 3 Seconds Skin: No rashes, No breakdown Musculoskeletal: No Tenderness to Palpation of Joints or Extremities Neurological: Cranial nerves II-XII grossly intact, DTR 2+/4. No acute focal neurological deficit. Psych/Mental Status: Flat affect. Pain Assessment & Plan Assessment/Plan (1) Generalized weakness: (2) Anemia: QUALIFIERS: Anemia type: unspecified type Qualified Code(s): D 64.9 - Anemia, unspecified PLAN: Plan 64-year-old female admitted with generalized weakness and fall with shortness of breath from anemia. 1. Generalized weakness and falls with shortness of breath secondary to anemia from a GI bleed secondary to a metastatic colon cancer in the right hepatic flexure as well as iron deficiency and low vitamin B12/GERD – She has been having dark stools for about 10 days before admission – Hemoccult is positive – Hemoglobin has stabilized – Appreciate GI assistance, EGD was unremarkable, colonoscopy demonstrated a right hepatic flexure colon mass with biopsies and CT of the chest abdomen pelvis demonstrates extensive metastatic disease to the liver – General Surgery had discussion with the mother about potential surgical intervention, oncology also evaluated the patient did not feel that she was a candidate for chemotherapy and the mother did not think that she would be able to handle surgery or chemotherapy so would like to speak with hospice today about possible transfer to SNF closer to her house to do hospice there – Continue with PPI – PT/OT 01/30: Discussed with patient's mother. Patient not able to lay down/supine position to examine the belly. Abdomen looks distended more like gaseous distention with tympanic note. Symptomatic management. 01/31: Patient might have ileus therefore abdominal distention with gastric distention. Stool softener was started yesterday and increase the dose. Morphine dose is decreased. 02/01: Patient moved bowel movement today. Pending pre-CERT for transfer to inpatient hospice to retirement. 02/02: Patient is moving bowel. Still pending pre-CERT. 02/03: Patient is going to extended-care facility as inpatient hospice status. Follow-up with the [facility] for further hospice care and management 10/22: Pre-CERT received. Discharge med list and transfer paperwork completed. Patient does not need BiPAP retirement because she is inpatient hospice and has mild abdominal distention with ileus due to colon cancer abdominal distention is getting better with bowel movement.. KUB x-ray done in the morning by GI SUPERVISOR METER REPAIR SHOP and shows the bowel-gas pattern is unremarkable in appearance. No mass or mass effect is seen. 2. Essential HTN – She states that she is not on Lasix anymore – Continue with metoprolol – Will monitor and make adjustments as necessary – She had an echo 08/19/2024 with an EF of 70% and a mildly dilated right ventricle 01/30: Heart rate and blood pressure controlled. On 2 L of oxygen 02/01: Heart rate and blood pressure controlled. Heart rate in 90s. 02/02: BPs 106/79. No fever but Tmax 99.6 Fahrenheit. 02/01 3. COPD with acute hypercapnic respiratory failure –ABG demonstrated a pCO2 of 135 necessitating initiation of BiPAP, after about an hour her pCO2 was 80 and her pH improved from 7.2 up to 7.35 – Continue with her home inhalers – Recommend BiPAP while sleeping 01/30 on 2 L of oxygen. Respiratory 20/min. BiPAP at night DVT: SCDs Advised to discharge early tomorrow. Clinical Impression(s) from Imaging Studies Chest X-Ray 01/24/25 19:10 IMPRESSION: Suggestion of COPD. Reading Location: [facility] Chest/Abdomen/Pelvis CT 01/28/25 08:00 IMPRESSION: Diffuse liver metastasis. Small amount of perihepatic fluid as well as fluid in the pelvis. Apple-core lesion seen in the region of the hepatic flexure. Reading Location: [facility] KUB X-Ray 02/03/25 11:00 IMPRESSION: Prominent T12 compression fracture and lesser L1 compression fracture appear similar to the recent comparison CT examination. Generalized osteopenia is present. The bowel-gas pattern is unremarkable in appearance. No mass or mass effect is seen. Reading Location: [id number] Charges/Coding Visit Charges Inpatient E&M: 59330 Subs Hosp L2
[2025-02-03 23:40] VITALS: PULSE 84; RESP 26; O2SAT 100
[2025-02-04 03:36] VITALS: BMI 19.1
[2025-02-04 04:00] VITALS: BP 112/76; PULSE 96; RESP 20; TEMP 36.9; O2SAT 98
[2025-02-04] MEDS: 0.9% Saline Lock 10 ML Syringe IV (04:27)
[2025-02-04 08:26] VITALS: BP 118/87; PULSE 88; RESP 12; TEMP 36.9; O2SAT 99
--- NOTE | 2025-02-04 09:23 | PCM.TXEXTCAR ---
Diet Diet Order/Speech Therapy: INPATIENT Hospital Diet / Speech Therapy Order(s) 02/01/25 14:53 Diet: Regular - General Food consistency:: Regular Liquid Consistency:: Regular/Thin Routine Orders/Code Status Code Status: DNRCC (Hosp[facility] care[facility] DC O2, CPAP, BIPAP needs Home O2 Discharge instructions: Yes Type of respiratory needs?: Oxygen Oxygen frequency: Continuous Continuous oxygen liters per minute: 4 Problem/Diagnosis (1) Generalized weakness: Status: Acute Code(s): R53.1 - Weakness (2) Anemia: Status: Acute Code(s): D64.9 - Anemia, unspecified Plan 1. Generalized weakness and falls with shortness of breath secondary to anemia from a GI bleed secondary to a metastatic colon cancer in the right hepatic flexure as well as iron deficiency and low vitamin B12/GERD – She has been having dark stools for about 10 days before admission – Hemoccult is positive – Hemoglobin has stabilized – Appreciate GI assistance, EGD was unremarkable, colonoscopy demonstrated a right hepatic flexure colon mass with biopsies and CT of the chest abdomen pelvis demonstrates extensive metastatic disease to the liver – General Surgery had discussion with the mother about potential surgical intervention, oncology also evaluated the patient did not feel that she was a candidate for chemotherapy and the mother did not think that she would be able to handle surgery or chemotherapy so would like to speak with hospice today about possible transfer to SNF closer to her house to do hospice there – Continue with PPI – PT/OT 01/30: Discussed with patient's mother. Patient not able to lay down/supine position to examine the belly. Abdomen looks distended more like gaseous distention with tympanic note. Symptomatic management. 01/31: Patient might have ileus therefore abdominal distention with gastric distention. Stool softener was started yesterday and increase the dose. Morphine dose is decreased. 02/01: Patient moved bowel movement today. Pending pre-CERT for transfer to inpatient hospice to snf. 02/02: Patient is moving bowel. Still pending pre-CERT. 2. Essential HTN – She states that she is not on Lasix anymore – Continue with metoprolol – Will monitor and make adjustments as necessary – She had an echo 08/19/2024 with an EF of 70% and a mildly dilated right ventricle 01/30: Heart rate and blood pressure controlled. On 2 L of oxygen 02/01: Heart rate and blood pressure controlled. Heart rate in 90s. 02/02: BPs 106/79. No fever but Tmax 99.6 Fahrenheit. 3. COPD with acute hypercapnic respiratory failure –ABG demonstrated a pCO2 of 135 necessitating initiation of BiPAP, after about an hour her pCO2 was 80 and her pH improved from 7.2 up to 7.35 – Continue with her home inhalers – Recommend BiPAP while sleeping 01/30 on 2 L of oxygen. Respiratory 20/min. BiPAP at night DVT: SCDs Allergies/Procedures Done in Hospital Allergies Sulfa (Sulfonamide Antibiotics) Allergy (Intermediate, Verified 01/24/25 18:17) Other red face increase pulse Latex, Natural Rubber Allergy (Verified 01/24/25 18:17) Rash nabumetone Adverse Reaction (Intermediate, Verified 01/24/25 18:17) Other meloxicam Adverse Reaction (Mild, Verified 01/24/25 18:17) Nausea Type of Care/Length of Stay Estimated LOS: More Than 30 Days Type of Care Needed: Inpt Hospice Facility Rehab Potential: Poor Prognosis: Poor Additional Orders/Day of Discharge Day of Discharge: 02/03/25 Dietary and Speech Recommendations Dietitian Recommendations/Changes: Adjust to liberal regular diet due to signs and symptoms of malnutrition along with possible hospice. Pt refuses ONS. Discharge Plan Admission Admit Date/Time: 01/25/25 15:10 Attending Provider: Rodney Pastrana Primary Care Provider: Jose Carlos Lang Consulting Providers: Vance Paulino; Matt Rodriguez; José Darling; Vance King; Sukumar Nieves; Rigo De La Rosa; Samantha Keys; Ernesto Smith; Sunday Sarkar; Jose Yates; Amaury Chairez; Linda Suarez LOTUS NOTES ADMINISTRATOR; Vance Bacon; Ginny Lehman; Yecenia Richardson; Karli Varma; Tammy Taylor LOTUS NOTES ADMINISTRATOR; Chelsea Quintanilla; Antonio Olivas Discharge Orders/Prescriptions Prescriptions: New cyanocobalamin (vitamin B-12) 500 mcg Tablet 1,000 mcg PO BREAKFAST Qty: 0 0RF bisacodyl 10 mg Suppository 10 mg DE DAILY Qty: 0 0RF ferrous gluconate 324 mg (37.5 mg iron) Tablet 324 mg PO DAILY Qty: 0 0RF sennosides-docusate sodium [Stimulant Laxative Plus] 8.6-50 mg Tablet 2 tab PO BID Qty: 0 0RF simethicone 80 mg Tablet,Chewable 160 mg PO 4X/DAY Qty: 0 0RF Continued polyethylene glycol 3350 [Miralax] 17 gram/dose powder 17 g PO BID PRN (Reason: Constipation) Linzess 290 mcg capsule 290 mcg PO QAM Qty: 90 1RF Rx Instructions: take one every day 30 minutes before first meal (DME) nebulizer accessories Kit See Rx Instructions .Route Qty: 1 0RF Rx Instructions: As directed acetaminophen 500 mg tablet 1,000 mg PO Q6H PRN (Reason: pain) ipratropium-albuterol 0.5 mg-3 mg(2.5 mg base)/3 mL Solution For Nebulization 3 ml inhalation Q4H PRN (Reason: COPD, exacerbation, hypoxia) Qty: 90 0RF albuterol sulfate 2.5 mg /3 mL (0.083 %) Solution For Nebulization 2.5 mg inhalation Q2H PRN (Reason: Dyspnea, wheezing) Qty: 75 0RF lansoprazole 30 mg capsule,delayed release(DR/EC) 30 mg PO DAILY Qty: 30 0RF hydroxyzine HCl 25 mg tablet 25 mg PO QHS PRN (Reason: sleep) Qty: 30 0RF Patient Comments: PT DOESNT TAKE OFTEN BECAUSE IT CAUSES BREATHING PROBLEMS. metoprolol tartrate 25 mg tablet 12.5 mg PO BID Qty: 30 0RF (DME) OXYGEN - Supplemental ([facility] INFORMATIONAL USE ONLY) 0 .ROUTE .MEDSUPPLY Patient Comments: patient wears 3 liters at home, 4 liters on exertion DME:[employer] Changed furosemide 40 mg Tablet 40 mg PO DAILY PRN (Reason: leg swelling) Qty: 28 0RF Referrals / Follow Up: Jose Carlos Lang MD [Primary Care Provider, Family Practice] Disposition Disposition (needs filled in before D/C Order can be placed): Home, Self Care (2) Anemia Qualifiers: Anemia type: unspecified type Qualified Code(s): D64.9 - Anemia, unspecified
--- NOTE | 2025-02-04 09:23 | PCM.DC.SUM ---
Providers Date of Admission: 01/25/25 Date of Discharge: 02/04/25 Primary Care Physician: Dr. Jose Carlos Lang MD Consultations 01/25/25 17:25 Consult: Gastroenterology Routine Consulting Provider: Matt Rodriguez Reason for Consult: + hem test stool EMERGENT Consult: No Notified: Yes Date Notified: 01/25/25 Time Notified: 17:26 Method of Notification: Text 01/27/25 17:35 Consult: General Surgery Routine Consulting Provider: José Darling Reason for Consult: colon cancer EMERGENT Consult: No Notified: Yes Date Notified: 01/27/25 Time Notified: 17:35 Method of Notification: Verbal 01/28/25 13:02 Consult: Oncology/Hematology Routine Consulting Provider: [facility] Reason for Consult: metastatic colon cancer EMERGENT Consult: No Notified: Yes Date Notified: 01/28/25 Time Notified: 13:02 Method of Notification: Verbal 01/28/25 17:05 Consult: Hospice / Outpatient Palliative Care Routine Consulting Provider: [facility] Reason for Consult: cancer EMERGENT Consult: No Notified: Yes Date Notified: 01/28/25 Time Notified: 17:05 Method of Notification: Text Reason For Visit: generalized weakness an sob after fall w/ dark sto Diagnosis Discharge Diagnosis (1) Generalized weakness: Status: Acute Code(s): R53.1 - Weakness (2) Anemia: Status: Acute Code(s): D64.9 - Anemia, unspecified Qualifiers: Anemia type: unspecified type Qualified Code(s): D64.9 - Anemia, unspecified Plan 1. Generalized weakness and falls with shortness of breath secondary to anemia from a GI bleed secondary to a metastatic colon cancer in the right hepatic flexure as well as iron deficiency and low vitamin B12/GERD – She has been having dark stools for about 10 days before admission – Hemoccult is positive – Hemoglobin has stabilized – Appreciate GI assistance, EGD was unremarkable, colonoscopy demonstrated a right hepatic flexure colon mass with biopsies and CT of the chest abdomen pelvis demonstrates extensive metastatic disease to the liver – General Surgery had discussion with the mother about potential surgical intervention, oncology also evaluated the patient did not feel that she was a candidate for chemotherapy and the mother did not think that she would be able to handle surgery or chemotherapy so would like to speak with hospice today about possible transfer to SNF closer to her house to do hospice there – Continue with PPI – PT/OT 01/30: Discussed with patient's mother. Patient not able to lay down/supine position to examine the belly. Abdomen looks distended more like gaseous distention with tympanic note. Symptomatic management. 01/31: Patient might have ileus therefore abdominal distention with gastric distention. Stool softener was started yesterday and increase the dose. Morphine dose is decreased. 02/01: Patient moved bowel movement today. Pending pre-CERT for transfer to inpatient hospice to halfway. 02/02: Patient is moving bowel. Still pending pre-CERT. 02/04: Patient is being discharged.Pre-CERT was received on 02/03. Discharge med list and transfer paperwork completed. Patient does not need BiPAP halfway because she is inpatient hospice and has mild abdominal distention with ileus due to colon cancer abdominal distention is getting better with bowel movement.. KUB x-ray was done on 02/03 by GI PHONE SPECIALIST and shows the bowel-gas pattern is unremarkable in appearance. No mass or mass effect is seen. 2. Essential HTN – She states that she is not on Lasix anymore – Continue with metoprolol – Will monitor and make adjustments as necessary – She had an echo 08/19/2024 with an EF of 70% and a mildly dilated right ventricle 01/30: Heart rate and blood pressure controlled. On 2 L of oxygen 02/01: Heart rate and blood pressure controlled. Heart rate in 90s. 02/02: BPs 106/79. No fever but Tmax 99.6 Fahrenheit. 02/04 blood pressure is controlled 118/87. 02/04 currently on 3 L of oxygen 3. COPD with acute hypercapnic respiratory failure –ABG demonstrated a pCO2 of 135 necessitating initiation of BiPAP, after about an hour her pCO2 was 80 and her pH improved from 7.2 up to 7.35 – Continue with her home inhalers – Recommend BiPAP while sleeping 01/30 on 2 L of oxygen. Respiratory 20/min. BiPAP at night DVT: SCDs Discharge medication reconciliation done. Discharge follow-up instructions completed. Discharge process discussed with the patient and all questions were answered to patient's satisfaction. Follow with PCP in 1 to 2 weeks Total time spent, exact 35 minutes on discharge meds reconciliation, examination, coordination of care with nurses and ancillary staff, review of imaging and blood test and discussion with the patient on follow-up instructions. Medications at Discharge Home Medications nebulizer accessories #1 ea 11/26/21 acetaminophen 500 mg tablet 1,000 mg PO Q6H PRN pain 08/18/24 albuterol sulfate 2.5 mg/3 mL (0.083 %) solution for nebulization 2.5 mg (3 mL) inhalation Q2H PRN Dyspnea, wheezing #75 mL 08/21/24 hydroxyzine HCl 25 mg tablet 25 mg PO QHS PRN sleep #30 tabs 08/21/24 ipratropium 0.5 mg-albuterol 3 mg (2.5 mg base)/3 mL nebulization soln 3 ml inhalation Q4H PRN COPD, exacerbation, hypoxia #90 mL 08/21/24 lansoprazole 30 mg capsule,delayed release 30 mg PO DAILY gerd #30 caps 08/21/24 metoprolol tartrate 25 mg tablet 12.5 mg (1/2 x 25 mg) PO BID heart #30 tabs 08/21/24 linaclotide 290 mcg capsule (Linzess) 290 mcg PO QAM bowel movement #90 caps 09/24/24 polyethylene glycol 3350 17 gram/dose oral powder (Miralax) 17 g PO BID PRN Constipation 09/24/24 OXYGEN - Supplemental ([facility] INFORMATIONAL USE ONLY) 01/28/25 bisacodyl 10 mg rectal suppository 10 mg [place] DAILY #0 ea 02/03/25 cyanocobalamin (vitamin B-12) 500 mcg tablet 1,000 mcg (2 x 500 mcg) PO BREAKFAST #0 tabs 02/03/25 ferrous gluconate 324 mg (37.5 mg iron) tablet 324 mg PO DAILY #0 tabs 02/03/25 furosemide 40 mg tablet 40 mg PO DAILY PRN leg swelling #28 tabs 02/03/25 sennosides 8.6 mg-docusate sodium 50 mg tablet (Stimulant Laxative Plus) 2 tab PO BID #0 tabs 02/03/25 simethicone 80 mg chewable tablet 160 mg (2 x 80 mg) PO 4X/DAY #0 tabs 02/03/25 Physical Exam Narrative Seen and examined Patient having intermittent bowel movement. Patient is on hospice care DNR CC. Abdominal distention, mild Physical exam General: Alert, Oriented x3, Cooperative HEENT: Atraumatic, PERRLA, EOMI, Normocephalic. Oral: No Gingival or Mucosal Lesions/ Ulcerations Neck: Supple, No JVD, Negative Carotid Bruits Chest wall/Lungs: Air entry diminished in bilateral lung bases. No crepitation/rhonchi Cardiovascular: Regular rate and rhythm, Normal S1,S2, No M/G/R Abdomen: Bowel Sounds sluggish, mild abdominal distention. : No dysuria. No renal angle tenderness. No suprapubic tenderness. Extremities: both lower legs, 2 edema, improving. Capillary Refill Less than 3 Seconds Skin: No rashes, No breakdown Musculoskeletal: No Tenderness to Palpation of Joints or Extremities Neurological: Cranial nerves II-XII grossly intact, DTR 2+/4. No acute focal neurological deficit. Psych/Mental Status: Flat affect. Pain Weight / BMI Weight Weight: 115 lb 4.828 oz Body Mass Index (BMI) 19.1 ABG / Lab / Microbiology Data 01/29/25 05:10 01/29/25 05:10 Microbiology: Microbiology 01/25/25 16:50 Stool Stool Occult Blood (ANT) - Final Occult Blood Positive Radiography Diagnostic Testing: Radiology Impression KUB X-Ray 02/03/25 11:00 IMPRESSION: Prominent T12 compression fracture and lesser L1 compression fracture appear similar to the recent comparison CT examination. Generalized osteopenia is present. The bowel-gas pattern is unremarkable in appearance. No mass or mass effect is seen. Reading Location: [address] D/C Instructions DC O2, CPAP, BIPAP Needs Home O2 Discharge instructions: Yes Type of respiratory needs?: Oxygen Oxygen frequency: Continuous Continuous oxygen liters per minute: 4 DC home with Oxygen: Yes Home O2 Review: I have reviewed the oxygen testing, and the patient qualifies for home oxygen equipment and portability. The patient is mobile in the home and the community. Meaningful Use Info Meaningful Use Meaningful Use Diagnoses (Choose all that apply): None applicable Discharge Plan Admission Admit Date/Time: 01/25/25 15:10 Attending Provider: Rodney Pastrana Primary Care Provider: Jose Carlos Lang Consulting Providers: Vance Paulino; Matt Rodriguez; José Darling; Vance King; Sukumar Nieves; Rigo De La Rosa; Samantha Keys; Ernesto Smith; Sunday Sarkar; Jose Yates; Amaury Chairez; Linda Suarez PHONE SPECIALIST; Vance Bacon; Ginny Lehman; Yecenia Richardson; Karli Varma; Tammy Taylor PHONE SPECIALIST; Chelsea Quintanilla; Antonio Olivas Discharge Orders/Prescriptions Prescriptions: New cyanocobalamin (vitamin B-12) 500 mcg Tablet 1,000 mcg PO BREAKFAST Qty: 0 0RF bisacodyl 10 mg Suppository 10 mg [place] DAILY Qty: 0 0RF ferrous gluconate 324 mg (37.5 mg iron) Tablet 324 mg PO DAILY Qty: 0 0RF sennosides-docusate sodium [Stimulant Laxative Plus] 8.6-50 mg Tablet 2 tab PO BID Qty: 0 0RF simethicone 80 mg Tablet,Chewable 160 mg PO 4X/DAY Qty: 0 0RF Continued polyethylene glycol 3350 [Miralax] 17 gram/dose powder 17 g PO BID PRN (Reason: Constipation) Linzess 290 mcg capsule 290 mcg PO QAM Qty: 90 1RF Rx Instructions: take one every day 30 minutes before first meal (DME) nebulizer accessories Kit See Rx Instructions .Route Qty: 1 0RF Rx Instructions: As directed acetaminophen 500 mg tablet 1,000 mg PO Q6H PRN (Reason: pain) ipratropium-albuterol 0.5 mg-3 mg(2.5 mg base)/3 mL Solution For Nebulization 3 ml inhalation Q4H PRN (Reason: COPD, exacerbation, hypoxia) Qty: 90 0RF albuterol sulfate 2.5 mg /3 mL (0.083 %) Solution For Nebulization 2.5 mg inhalation Q2H PRN (Reason: Dyspnea, wheezing) Qty: 75 0RF lansoprazole 30 mg capsule,delayed release(DR/EC) 30 mg PO DAILY Qty: 30 0RF hydroxyzine HCl 25 mg tablet 25 mg PO QHS PRN (Reason: sleep) Qty: 30 0RF Patient Comments: PT DOESNT TAKE OFTEN BECAUSE IT CAUSES BREATHING PROBLEMS. metoprolol tartrate 25 mg tablet 12.5 mg PO BID Qty: 30 0RF (DME) OXYGEN - Supplemental ([facility] INFORMATIONAL USE ONLY) 0 .ROUTE .MEDSUPPLY Patient Comments: patient wears 3 liters at home, 4 liters on exertion DME:[employer] Changed furosemide 40 mg Tablet 40 mg PO DAILY PRN (Reason: leg swelling) Qty: 28 0RF Referrals / Follow Up: Jose Carlos Lang MD [Primary Care Provider, Family Practice] Disposition Disposition (needs filled in before D/C Order can be placed): Home, Self Care Charges/Coding Visit Charges Inpatient E&M: 71093 Disch Hosp >30min
--- NOTE | 2025-02-04 10:19 | NURSING ---
Report called at this time to ELIN Isaacs at this time.
== END 2025-02-04 10:15 | disposition skilled nursing facility (03) | DRG 240 ==
LOC: ED 19:17 → MS3 23:42 → PCU 01-27 19:54
PROVIDERS: Anesthesiology; Family Medicine; Internal Medicine Gastroenterology; Admitting Provider Internal Medicine; Emergency Provider Emergency Medicine; PCP Family Medicine; Visit Provider Internal Medicine
PROC: 0DJ08ZZ Inspection of Upper Intestinal Tract, Via Natural or Artificial Opening Endoscopic (ICD-10-PCS; CPT 43235; principal; 2025-01-26 17:55)
PROC: 0DJD8ZZ Inspection of Lower Intestinal Tract, Via Natural or Artificial Opening Endoscopic (ICD-10-PCS; CPT 45378; principal; 2025-01-27 13:25)
DX: C18.3 Malignant neoplasm of hepatic flexure (principal); J96.22 Acute and chronic respiratory failure with hypercapnia; Z66 Do not resuscitate; C78.7 Secondary malignant neoplasm of liver and intrahepatic bile duct; E43 Unspecified severe protein-calorie malnutrition; K56.690 Other partial intestinal obstruction; F31.9 Bipolar disorder, unspecified; J44.9 Chronic obstructive pulmonary disease, unspecified; D63.0 Anemia in neoplastic disease; I10 Essential (primary) hypertension; D62 Acute posthemorrhagic anemia; E53.8 Deficiency of other specified B group vitamins; F10.90 Alcohol use, unspecified, uncomplicated; F17.210 Nicotine dependence, cigarettes, uncomplicated; K21.9 Gastro-esophageal reflux disease without esophagitis; G47.33 Obstructive sleep apnea (adult) (pediatric); K63.5 Polyp of colon; K58.1 Irritable bowel syndrome with constipation; K55.20 Angiodysplasia of colon without hemorrhage; R29.6 Repeated falls; Z68.1 Body mass index [BMI] 19.9 or less, adult; Z79.899 Other long term (current) drug therapy; Z99.81 Dependence on supplemental oxygen; Z23 Encounter for immunization
CPT/HCPCS: 31720; 36415; 36600; 71046; 71260; 74018; 74177; 80048; 80053; 81001; 82274; 82378; 82550; 82607; 82728; 82746; 82803; 83540; 83550; 83735; 84100; 84443; 84484; 85014; 85018; 85025; 85610; 85730; 88305; 93005; 94002; 94003; 94640; 94668; 94762; 97116; 97162; 97166; 97530; 97535; 99285; 99406; C1889; Q9967; A4216; A4648; J2405; J2916; J3420